=== PATIENT | male | born 1970 | race Two or more races ===

== ENCOUNTER 2024-12-28 08:51 | Inpatient (IN) | payer MEDICAID, SELFPAY ==
[2024-12-28] VITALS (15 sets, daily range): BP systolic 87–125; BP diastolic 54–93; PULSE 55–100; RESP 15–29; TEMP 36.4–37.8; O2SAT 91–100; BMI 27.1; BMI 25.3
--- NOTE | 2024-12-28 09:12 | EDNOTE_ITS ---
ED Fever RME/HPI General Chief Complaint: Fever Stated Complaint: LOW BLOOD PRESSURE Time Seen by Provider: 12/28/24 09:00 Arrival date/time: 12/28/24 08:51 RME / HPI RME / HPI Narrative: 54 year old male with history of TBI, anoxic encephalopathy, chronic vegetative state, chronic respiratory failure, s/p tracheostomy with ventilator dependance, s/p PEG tube presents to the ED brought in from the subacute unit within this facility for evaluation of hypotension and fevers today. Per RN, nursing staff at subacute reported fevers began several days ago and had a chest xray performed yesterday that showed early bilateral perihilar pneumonia. No further history obtainable from patient due to medical condition. Related Data Home Medications ?Medication ?Instructions ?Recorded ?Confirmed bisacodyl 10 mg rectal suppository 10 mg TN Q72H 09/0909/09/19 (Dulcolax (bisacodyl)) magnesium hydroxide 400 mg/5 mL 30 ml feeding tube Q72 H 09/09/19 09/09/19 oral suspension (Milk of Magnesia) multivitamin 1 tab feeding tube QDAY 08/1509/09/19 polyethylene glycol 3350 17 gram 17 g feeding tube Q72 H 09/09/19 09/09/19 oral powder packet (Miralax) propranolol 20 mg tablet 20 mg feeding tube Q8H 09/0909/09/19 sennosides 8.6 mg tablet (senna) 8.6 mg feeding tube B ID 09/09/19 09/09/19 dextran 70-hypromellose (PF) 0.1 2 drp ophthalmic (eye ) QID eye 09/10/19 09/10/19 %-0.3 % eye drops in a dropperette dryness (Natural Tears (PF)) Previous Rx's ?Medication ?Instructions ?Recorded balsam jory-castor oil topical 1 applicatio topical BI D #30 grams 09/14/19 ointment (Venelex topical ointment) ceftriaxone 1 gram intravenous 1 gm IV Q24H #5 ea 12/02 solution esomeprazole sodium 40 mg 40 mg IVP QDAY #30 ea intravenous solution ipratropium 0.5 mg-albuterol 3 mg 3 ml INH Q2HR PRN Sh ortness Of 09/14/19 (2.5 mg base)/3 mL nebulization Breath Or Wheeze #3 mL soln melatonin 3 mg tablet 3 mg feeding tube HS #0 tabs 09/14/19 sodium phosphates 19 gram-7 118 ml TN Q72H PRN Constip ation #0 09/14/19 gram/118 mL enema (Fleet Enema) mL Allergies Allergy/AdvReac Type Severity Reaction Status Date / Time No Known Allergies Allergy Verified 09/08/19 16:09 Review of Systems Review of Systems ROS Unobtainable: unobtainable due to medical condition Past Medical History Past Medical History NEUROLOGIC: Positive Neurological Disorders, Head Trauma and Traumatic Brain Injury CARDIAC: Positive Cardiac Arrhythmia (ON PROPRANOLOL) and Edema RESPIRATORY: Positive Asthma MUSCULOSKELETAL: Positive Musculoskeletal Disorders and Fractures ENT: Positive Head Trauma OTHER HISTORY: Positive Hospitalization Family History FAMILY HISTORY: Negative Family Cardiac Disorders Surgical History SURGICAL: Positive Tracheostomy and Gastrostomy Social History SMOKING STATUS: Unknown if ever smoked SECOND HAND EXPOSURE: No Physical Exam Narrative Physical exam: GENERAL: In general the patient is nonverbal, breathing comfortably after trach was suctioned three times.?Wering an adult brief. HEAD/EYES/EARS/NOSE/THROAT: normo-cephalic, mucus membranes are dry.? No cervical tenderness palpation midline.? Supple neck. Tracheostomy noted. CARDIOVASCULAR: regular rate and regular rhythm, no murmurs, heart sounds are not distant, strong pulses in all four extremities that are equal and symmetric bilateral upper and lower extremities, normal capillary refill. CHEST/PULMONARY: normal chest rise and fall, decreased breath sounds, clear to auscultation bilaterally, no wheezing. ABDOMEN: soft, not tender, no masses appreciated, G-tube appears to be leaking foot material, the g-tube site without any redness, erythema or discharge. BACK: no wounds on back, no areas of redness or skin breakdown NEUROLOGICAL: nonverbal, hx of TBI, chronic vegetative state, chronic contracture of upper and lower extremities, the left leg appears to always be crossing to the right side. EXTREMITY: no appearance of tenderness to palpation over the long bones or large joints of the bilateral upper and lower extremities, no signs of trauma SKIN: warm, dry, well-perfused, no jaundice, no rash, no telangiectasias or petechia. PSYCH: calm, cooperative, no evidence of psychosis or agitation Course Quality Measures Current suspected stage: sepsis Possible source: pulmonary Blood cultures ordered: completed in ED Antibiotic ordered: Yes Pertinent labs: 12/28/24 09:47 Lactic Acid 2.1 H mMol/L (0.4-2.0) Procalcitonin 0.17 ng/ml (0.0-0.49) sepsis Orders Category Date Time Status Bedside COVID-19 Antigen Test NOW Care 12/28/24 09:41 Completed COVID-19 Screening Questionnaire NOW Care 12/28/24 11:21 Ordered Energy Derivatives Trader STAT Care 12/28/24 09:24 Active Continuous Pulse Oximetry STAT Care 12/28/24 09:24 Completed Decision to Admit X1 Care 12/28/24 11:21 Ordered In and Out Catheter X1PRN Care 12/28/24 09:24 Completed Insert IV NOW Care 12/28/24 09:24 Completed NPO STAT Care 12/28/24 09:24 Active Strict Intake and Output Routine Care 12/28/24 09:24 Ordered B-Type Natriuretic Peptide Stat Lab 12/28/24 09:47 Completed Blood Culture (Lab) Stat Lab 12/28/24 09:05 Received CBC Stat Lab 12/28/24 09:47 Completed Comprehensive Metabolic Panel Stat Lab 12/28/24 09:47 Completed LDH (Lactate Dehydrogenase) Stat Lab 12/28/24 09:47 Completed Lactate (Lactic Acid) Stat Lab 12/28/24 09:47 Results Lipase Stat Lab 12/28/24 09:47 Completed Magnesium Stat Lab 12/28/24 09:47 Completed Partial Thromboplastin Time Stat Lab 12/28/24 09:47 Completed Phosphorous Stat Lab 12/28/24 09:47 Completed Procalcitonin Stat Lab 12/28/24 09:47 Completed Prothrombin Time with INR Stat Lab 12/28/24 09:47 Completed Troponin I Stat Lab 12/28/24 09:47 Completed Urinalysis Stat Lab 12/28/24 10:05 Completed Urine Culture Stat Lab 12/28/24 10:05 Received Piper/Tazo 3.375 gm Premix [Zosyn] Med 12/28/24 09:23 Discontinued 3.375 gm in 50 ml IV X1 Sodium Chloride 0.9% 1000 ml [Ns] 1,000 ml Med 12/28/24 10:02 Discontinued IV 999 mls/hr Sodium Chloride 0.9% 1000 ml [Ns] 2,427 ml Med 12/28/24 10:15 Discontinued IV 2,427 mls/hr Oxygen Delivery NOW RT 12/28/24 09:24 Active Reevaluation(s) Reevaluation #1: After IVF, blood pressure 114/65. Time: 10:55 Vital Signs Vital signs: Vital Signs Temperature 99.2 F 12/28/24 09:08 Pulse Rate 92 12/28/24 09:08 Respiratory Rate 26 H 12/28/24 09:08 Blood Pressure 101/63 12/28/24 09:08 Pulse Oximetry (%) 98 12/28/24 09:08 Oxygen Delivery Method Trach Collar 12/28/24 09:08 Oxygen Flow Rate 10 12/28/24 09:08 Fever MDM Narrative MDM Narrative:: Ines Roy am scribing for and in the presence of Dr. Park. Patient data External records reviewed:: [facility] previous records (I reviewed Dr. Cooper's progress note from yesterday 12/27/2024 ) Clinical information provided by:: other (specify) (RN) Social determinants that could affect healthcare access:: housing (subacute patient) Patient has the following chronic illnesses:: TBI, anoxic encephalopathy, chronic vegetative state, chronic respiratory failure, s/p tracheostomy with ventilator dependance, s/p PEG tube How is presenting disease/condition affected by chronic disease/condition?: exacerbated by Evaluation data The following diagnostics were reviewed and interpreted by me:: lab results and radiology exam(s) (I reviewed cxr performed yesterday 12/27/2024 showing early bilateral perihilar pneumonia ) Lab and/or radiology exams considered but not ordered:: None Interpretation Summary: Patient temperature is better, 98F. Respiratory rare is 19. BC 18.7, H/H 13.2/37.5, lactic acid 2.1, UA WBC 46 +leukocyte esterase Medications / Prescriptions Medications or Prescriptions considered but not ordered:: None Medication administrations:: Medication Administration History Discontinued Medications Piperacillin/Tazobactam/Dextrose (Zosyn) 3.375 gm in 50 mls @ 100 mls/hr IV X1 ONE Stop: 12/28/24 09:52 Last Infusion: 12/28/24 10:30 Dose: Infused Documented By: [facility] Admin: 12/28/24 09:56 Dose: 100 mls/hr Documented By: BD Sodium Chloride (Ns) 1,000 mls @ 999 mls/hr IV .Q1H1M ONE Stop: 12/28/24 11:02 Last Admin: 12/28/24 10:53 Dose: Not Given Documented By: BD Non-Admin Reason: Duplicate Medication on eMAR Sodium Chloride (Ns) 2,427 mls @ 2,427 mls/hr 30 ml/kg infuse over 60 min (2427 ml) IV .Q1H ONE; Protocol Stop: 12/28/24 11:14 Last Admin: 12/28/24 09:50 Dose: 2,427 mls/hr Documented By: BD See above Consultations Consultation(s) initiated? (list below): Yes Consultation #1 (Physician, Specialty, Details): I spoke with resident Dr. Galo working with Dr. Omer. Discussed patients PMHx, HPI, ED course, exam findings, labs, and radiology results. The hospitalist agree to accept the patient for admission. Diagnosis Fever Differential Diagnosis: cellulitis, fever of unknown origin, gastroenteritis, pyelonephritis, viral infection, sepsis, influenza and other (UTI, aspiration pneumonia, bacteremia) Most likely diagnosis given after review of the tests above:: Right middle lobe pneumonia Sepsis UTI Admission Indicated Admission indicated?: indicated Admission Request Was there a request for admission?: Yes Admission Attestation Admission request attestation: Discussed case with [] from Hospitalist service regarding admission. Discussed patients ED course, exam findings, labs, and radiology results. The Hospitalist [agrees,declines] to accept the patient for admission. Disposition Plan Disposition Plan: Admit Critical Care Time Critical Care Time Critical Care Time: Yes Total Critical Care Time (min.): 35 Attestation: The high probability of sudden, clinically significant deterioration in the patient's condition required the highest level of my preparedness to intervene urgently. The services I provided to this patient were to treat and/or prevent clinically significant deterioration. Services included the following: chart data review, reviewing nursing notes and/or old charts, documentation time, media consultant outside sales collaboration regarding findings and treatment options, medication orders and management, direct patient care, vital sign assessments and ordering, interpreting and reviewing diagnostic studies and lab tests. Aggregate critical care time includes only time during which I was engaged in work directly related to the patient's care, as described above, whether at bedside or elsewhere in the Emergency Department. It did not include time spent performing other reported procedures or the services of residents, students, nurses or physician assistants. Discharge Plan Plan Patient Disposition: Admit Acute Care w/in Hospital Prescriptions/Referrals Prescriptions/Med Rec: No Action multivitamin Tablet 1 tab feeding tube QDAY sennosides [senna] 8.6 mg Tablet 8.6 mg feeding tube BID polyethylene glycol 3350 [Miralax] 17 gram Powder In Packet 17 g feeding tube Q72H magnesium hydroxide [Milk of Magnesia] 400 mg/5 mL Suspension 30 ml feeding tube Q72H bisacodyl [Dulcolax (bisacodyl)] 10 mg Suppository 10 mg TN Q72H propranolol 20 mg Tablet 20 mg feeding tube Q8H Natural Tears (PF) 0.1-0.3 % Dropperette 2 drp OPHTHALMIC (EYE) QID ipratropium-albuterol 0.5 mg-3 mg(2.5 mg base)/3 mL Solution For Nebulization 3 ml INH Q2HR PRN (Reason: Shortness Of Breath Or Wheeze) Qty: 3 0RF balsam jory-castor oil [Venelex] Ointment 1 applicatio topical BID Qty: 30 0RF ceftriaxone 1 gram recon soln 1 gm IV Q24H Qty: 5 0RF Rx Instructions: 5 more doses at the subacute. esomeprazole sodium 40 mg Recon Soln 40 mg IVP QDAY Qty: 30 0RF melatonin 3 mg Tablet 3 mg feeding tube HS Qty: 0 0RF Fleet Enema 19-7 gram/118 mL Enema 118 ml TN Q72H PRN (Reason: Constipation) Qty: 0 0RF Referrals: Lashell Keita MD [Primary Care Provider] - In 1 week Problem List Clinical Impression: Right middle lobe pneumonia, Sepsis, UTI (urinary tract infection) Patient/Caregiver Discharge Instructions Print Language: Trinidadian Stand Alone Forms: Caitlin Award Info., Patient Portal Info Letter
--- NOTE | 2024-12-28 09:15 | PC.NURSE ---
pt came from subacute for fever 99.1 and hypotension, chest xray shows pt has pnemonia, labs shows wbc 19.5. pt wa suction twice in room. pt has contracture to bilateral Upper extremities and lower extremities. pt has trach on 10L of cool mist 02. pt has g tube current no redness noted.
--- NOTE | 2024-12-28 09:23 | PC.NURSE ---
sepsis alert called at 0910
[2024-12-28 09:55] LABS: Lactate (Lactic Acid) 2.1 mMol/L (0.4-2.0)
[2024-12-28] MEDS: PIPER/TAZO 3.375 GM PREMIX 3.375 GM/50 ML BAG IV (09:56)
[2024-12-28 09:57] LABS: Basophils % (Auto) 0 % (0-2.5); Eosinophils # (Auto) 0.1 Thou/mm3 (0.0-0.5); Eosinophils % (Auto) 1 % (0-10); Hematocrit 37.5 % (41.0-53.0); Hemoglobin 13.2 g/dL (13.5-16.0); Immature Granulocytes % (Auto) 0 % (0-0); Immature Granulocytes Auto 0.07 Thou/mm3 (0.00-0.00); Lymphocytes # (Auto) 1.7 Thou/mm3 (1.0-4.8); Lymphocytes % (Auto) 9 % (10-50); Mean Corpuscular HGB Conc 35.2 g/dl (31.0-37.0); Mean Corpuscular Hemoglobin 32.3 pg (25.0-35.0); Mean Corpuscular Volume 92 fL (80-100); Monocytes # (Auto) 2.1 Thou/mm3 (0.0-0.8); Monocytes % (Auto) 11 % (0-12); Neutrophils # (Auto) 14.7 Thou/mm3 (1.8-7.7); Neutrophils % (Auto) 79 % (37-80); Nucleated Red Blood Cell % 0 /100 WBC (0); Platelet Count 223 Thou/mm3 (140-440); RDW Standard Deviation 42.7 fL (35.1-43.9); Red Blood Count 4.09 Miln/mm3 (4.50-5.90); White Blood Count 18.7 Thou/mm3 (3.8-10.6)
[2024-12-28 10:10] LABS: INR 1.1 (0.9-1.3); Partial Thromboplastin Time 30.1 Seconds (22.0-36.0); Prothrombin Time 11.7 Seconds (9.0-12.2)
[2024-12-28 10:14] LABS: B-Type Natriuretic Peptide 32 pg/mL (0-100)
[2024-12-28 10:25] LABS: Alanine Aminotransferase 20 U/L (10-49); Albumin, Serum 3.6 gm/dL (3.5-5.0); Albumin/Globulin Ratio 1.2 (1.2-2.2); Alkaline Phosphatase 97 U/L (46-116); Anion Gap 8 (7-16); Aspartate Amino Transferase 15 U/L (0-34); BUN/Creatinine Ratio 24 Ratio (12-20); Bilirubin,Total 1.1 mg/dL (0.3-1.2); Blood Urea Nitrogen 17 mg/dL (9-23); Calcium 9.4 mg/dL (8.3-10.6); Calcium (Corrected) 9.7 mg/dL (8.5-10.1); Chloride 100 mMol/L (98-107); Creatinine (Component) 0.7 mg/dL (0.6-1.3); Estimated Creatinine Clearance 116.7 mL/min (>60); Globulin 3.1 gm/dL (2.3-3.5); Glucose 111 mg/dL (74-106); LDH (Lactate Dehydrogenase) 140 U/L (120-246); Lipase 46 U/L (12-53); Magnesium 1.7 mg/dL (1.6-2.6); Osmolality,Calculated 274 (275-295); Potassium 4.2 mMol/L (3.4-5.1); Procalcitonin 0.17 ng/ml (0.0-0.49); Sodium 136 mMol/L (136-145); Total Protein 6.7 gm/dL (5.7-8.2); Troponin I < 0.002 ng/mL (0.0-0.045); eGFR > 60 See Note
[2024-12-28 10:36] LABS: Collection Type, Urine Catheter; Squamous Epithelial Cell,Urine 0 /hpf (0-5)
[2024-12-28 11:12] LABS: Bilirubin,Urine Negative (Negative); Blood,Urine Negative (Negative); Color,Urine Yellow (Lt Yel-Yel); Glucose, Urine Negative (Negative); Ketones,Urine Negative (Negative); Leukocyte Esterase,Urine Positive (Negative); Nitrite,Urine Negative (Negative); Protein,Urine Trace (Neg - Trace); RBC,Urine 2 /hpf (0-3); Specific Gravity,Urine 1.021 (1.001-1.035); Transitional Epi Cells,Urine < 1 /hpf (0-5); Urobilinogen,Urine Negative mg/dL (0.0-1.0); WBC,Urine 46 /hpf (0-5)
[2024-12-28 11:19] LABS: Clarity,Urine Hazy (Clear/Hazy)
--- NOTE | 2024-12-28 12:36 | PC.NURSE ---
RT CALLED REGARDING NEB TREATMENT
[2024-12-28 12:53] LABS: Reflex Lactate? Y
[2024-12-28] MEDS: ALBUTEROL/IPRATROPIUM (Duoneb) RT SOL 3 ML NEBU INH ×2 (13:12→18:04)
--- NOTE | 2024-12-28 13:12 | PC.NURSE ---
NOTIFIED OF PT CURRENT B/P OF MAP OF 66 ADVISED TO CALL IF MAP GETS BELOW 65 SO HE CAN SPEAK WITH ICU
[2024-12-28 13:16] LABS: Lactic Acid, 3 HR 0.9 mMol/L (0.4-2.0)
--- NOTE | 2024-12-28 14:51 | PC.NURSE ---
daughter obed here at bedside wanting and update advised that he is being admitted at the moment and we are waiting for a bed upstairs
--- NOTE | 2024-12-28 15:31 | ESHP_ITS ---
<Statement entered by Mat Galo MD - 12/28/24 17:47> Patient was seen and examined by me personally. I agree with most of the assessment and plan as discussed with the quality internship physician, and my attending, Dr. Omer. 54-year-old male presents from subacute facility (trach, PEG s/p TBI) with recurrent fever/hypotension. CXR taken on 12/27 concerning for pneumonia. UA consistent with UTI. In the ED, sepsis alert was initiated and patient received 30 cc per keg IV fluids; cultures (blood/sputum/urine) were ordered and patient received Zosyn x 1. At baseline, patient is awake and occasionally will open his eyes to commands. Vital signs significant for MAP fluctuating around 65, SBP in 90s, Tmax 100.6 at midnight. Labs significant for leukocytosis and LA 2.1 which has since resolved. Pro-Shady was negative. No evidence of endorgan damage noted on labs. Patient will be started on Rocephin and azithromycin until cultures finalize. Will also add midodrine to maintain MAP >65. Will resume home meds including bowel regimen, and start patient on trickle feeds overnight. Will discuss with nursing and car sales associate team to hold tube feeds if there is any concern of aspiration. At bedside, patient's daughter Arlene was present, and we discussed the possibility of signing a new POLST form. Arlene was concerned that her father is suffering, as he has been in this condition for ~5 years. The family lives in [place] and she feels that they do not get to see him much. She will discuss with her siblings and likely to remain in [place] overnight. Will follow-up with her on 12/29 a.m. 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 Also noted to be hypotensive with BP of 93/55. In ED, vitals significant for BP of 91/54 s/p IVF per sepsis protocol, HR 65, afebrile, on 40% FiO2 and 10 L blow-by. Labs significant for WBC 18.7, lactate 2.1 down trended to 0.9, phosphorus 2.0, negative troponin, negative BNP, negative Pro-Shady. UA showed 46 WBC and LE positive, no bacteria. CXR noted above. Abdominal x-ray nonspecific bowel gas pattern with diffuse fecal material. Given Zosyn x 1, 2.4 L NS (per sepsis protocol), DuoNebs x 1. Admitted for management of pneumonia possible urinary tract infection. PMHx: chronic vegetative state, TBI, anoxic brain injury, hypertension Medications: losartan 25 mg daily, propranolol 20 mg TID, bowel regimen, PRN atrovent SHx: N/A PSHx: N/A Review of Systems Review of Systems ROS Unobtainable: unobtainable due to medical condition Exam Vital Signs Temp Pulse Resp BP Pulse Ox O2 Del Method O2 Flow Rate 98.5 F 65 16 91/54 L 99 Trach Collar 10 12/28/24 14:26 12/28/24 14:40 12/28/24 14:40 12/28/24 14:40 12/28/24 14:40 12/28/24 14:40 12/28/24 13:13 FiO2 40 12/28/24 13:13 Narrative Exam General: intermittently awake, opens eyes to voice but does not follow commands HEENT: trach in place with copious white mucous secretions, NC/AT, white patch on tongue Cardiovascular: regular rate and rhythm, S1/S2 present, no murmurs appreciated Pulmonary: coarse/bronchial breath sounds Abdominal: PEG tube in place, insertion site C/D/I, soft, non-distended, no rebound/guarding Musculoskeletal: flexed contractures in bilateral upper and lower extremities, muscular atrophy in limbs Skin: warm and dry, intact, no rashes Neuro: intermittently awake, opens eyes to voice but does not follow commands Results: Labs 12/28/24 09:47 12/28/24 09:47 Labs: Short CBC 12/28/24 Range/Units 09:47 WBC 18.7 H (3.8-10.6) Thou/mm3 Hgb 13.2 L (13.5-16.0) g/dL Hct 37.5 L (41.0-53.0) % Plt Count 223 (140-440) Thou/mm3 BMP 12/28/24 09:47 Sodium 136 Potassium 4.2 Chloride 100 Carbon Dioxide 28.0 BUN 17 Creatinine 0.7 Glucose 111 H Calcium 9.4 Cardiac Enzymes 12/28/24 Range/Units 09:47 Troponin I < 0.002 (0.0-0.045) ng/mL Liver Function 12/28/24 Range/Units 09:47 Total Bilirubin 1.1 (0.3-1.2) mg/dL AST 15 (0-34) U/L ALT 20 (10-49) U/L Alkaline Phosphatase 97 D (46-116) U/L Albumin 3.6 (3.5-5.0) gm/dL Urine 12/28/24 Range/Units 10:05 Urine Color Yellow (Lt Yel-Yel) Urine Clarity Hazy (Clear/Hazy) Urine pH 6.0 (5.0-7.0) Ur Specific [place] 1.021 (1.001-1.035) Urine Protein Trace (Neg - Trace) Urine Glucose (UA) Negative (Negative) Quality Measures Quality Measures sepsis Current suspected stage: ruled out (no evidence of end organ damage at this time) Possible source: pulmonary Blood cultures ordered: completed in ED Antibiotic ordered: Yes Medications Home Medications and Allergies Home Medications ?Medication ?Instructions ?Recorded ?Confirmed ?Type bisacodyl 10 mg rectal suppository 10 mg [place] Q72H 09/0909/09/19 History (Dulcolax (bisacodyl)) magnesium hydroxide 400 mg/5 mL 30 ml feeding tube Q72 H 09/09/19 09/09/19 History oral suspension (Milk of Magnesia) multivitamin 1 tab feeding tube QDAY 08/1509/09/19 History polyethylene glycol 3350 17 gram 17 g feeding tube Q72 H 09/09/19 09/09/19 History oral powder packet (Miralax) propranolol 20 mg tablet 20 mg feeding tube Q8H 09/0909/09/19 History sennosides 8.6 mg tablet (senna) 8.6 mg feeding tube B ID 09/09/19 09/09/19 History dextran 70-hypromellose (PF) 0.1 2 drp ophthalmic (eye ) QID eye 09/10/19 09/10/19 History %-0.3 % eye drops in a dropperette dryness (Natural Tears (PF)) Allergies Allergy/AdvReac Type Severity Reaction Status Date / Time No Known Allergies Allergy Verified 09/08/19 16:09 Visit Medications Acetaminophen (Acetaminophen 325 Mg Tablet) 650 mg PO Q6H PRN PRN Reason: PAIN OR FEVER > 100.4 Stop: 01/27/25 14:55 Albuterol/Ipratropium (Albuterol/Ipratropium (Duoneb) Rt Johanne 3 Ml Nebu) 3 ml INH Q6HRRT NADINE Stop: 01/27/25 12:59 Last Admin: 12/28/24 13:12 Dose: 3 ml Heparin Sodium (Porcine) (Heparin Sod Inj 5000 Unit/Ml Vial) 5,000 unit SC Q12HR NADINE Stop: 01/11/25 20:59 Discontinued Medications Piperacillin/Tazobactam/Dextrose (Zosyn) 3.375 gm in 50 mls @ 100 mls/hr IV X1 ONE Stop: 12/28/24 09:52 Last Infusion: 12/28/24 10:30 Dose: Infused Sodium Chloride (Ns) 1,000 mls @ 999 mls/hr IV .Q1H1M ONE Stop: 12/28/24 11:02 Last Admin: 12/28/24 10:53 Dose: Not Given Sodium Chloride (Ns) 2,427 mls @ 2,427 mls/hr 30 ml/kg infuse over 60 min (2427 ml) IV .Q1H ONE; Protocol Stop: 12/28/24 11:14 Last Infusion: 12/28/24 12:28 Dose: Infused Assessment & Plan Plan Demetrio Monreal is a 54-year-old male who comes from subacute in 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 #Pneumonia, b/l perihilar and right basilar #Lactic acidosis, resolved #Hypotension Coming from subacute with low-grade fevers, leukocytosis, and hypotension. Resuscitated with IVF per sepsis protocol (30 mL/kg) and BP of 54 with MAP of 67. Patient does not have significant risk for MDR pathogens as he is not on ventilator in subacute and does not have a history of Pseudomonas or MRSA infections. Thus, will treat for CAP pathogens with low threshold for expanding coverage based on clinical presentation. ? Ceftriaxone 1 g IV daily (12/28-) ? Azithromycin 500 mg x 1 -> 250 mg via G-tube daily (12/28-) ? Midodrine 10 mg via G-tube TID PRN ? Sputum culture 12/27: Gram stain shows 2+ GPC and 2+ GVR ? Blood culture 12/28: Pending #? Urinary tract infection ? Ceftriaxone as above ? Urine culture 12/27: Pending #PEG tube ? Tube feedings, Jevity 1.2 shady 1 L RTH started on trickle feeds until RD recs ? Follow-up RD recommendations #Hypophosphatemia ? Neutra-Phos packets x2 ? Follow-up AM phos levels and replete as needed Antibiotics: Zosyn x 1 (12/28) Ceftriaxone and azithromycin (12/28-) Hospital management: Disposition: on IV antibiotics and pending culture results Fluids: 100 cc/hr of maintenance LR Diet: Jevity 1.2 Shady 1 L RTH Lines: PIV DVT prophylaxis: Heparin SC BID GI prophylaxis: Pantoprazole 40 mg IV daily Gonzalez: none, has diaper CODE STATUS: full code ----- Plan discussed with attending physician Dr. Omer and senior resident physician Dr. Clover Moulton MD PGY-1 Internal Medicine
[2024-12-28] MEDS: cefTRIAXone 1,000 MG in SODIUM CHLORIDE 0.9% (Popper) 50 ML 100 MG IV (15:54)
[2024-12-28] MEDS: AZITHROMYCIN SUSP 200 MG/5 ML 500 MG GT (16:12)
[2024-12-28] MEDS: RINGERS LACTATED 1000 ML 1,000 ML 100 ML IV (16:15)
[2024-12-28] MEDS: Magnesium Sulfate 2 GM Ivpb 2 GM/50 ML BAG IV (16:28)
[2024-12-28] MEDS: NAPH,KPH MBDB 1 PACKET (1.5 GM) 2 PACKET GT (17:05)
--- NOTE | 2024-12-28 20:34 | PC.NURSE ---
report received from Enedelia ROSE
[2024-12-28] MEDS: MIDODRINE 5 MG TABLET 10 MG GT (21:48)
[2024-12-28] MEDS: HEPARIN SOD INJ 5000 UNIT/ML VIAL SC (21:52)
[2024-12-29] VITALS (14 sets, daily range): BP systolic 90–128; BP diastolic 52–68; PULSE 64–89; RESP 14–29; TEMP 36.1–37.5; O2SAT 95–100; BMI 25.0
[2024-12-29] MEDS: ALBUTEROL/IPRATROPIUM (Duoneb) RT SOL 3 ML NEBU INH ×4 (00:16→20:19)
[2024-12-29] MEDS: guaiFENesin SYRUP 200 MG/10 ML UDC 100 MG GT ×2 (03:11→22:13)
[2024-12-29 05:25] LABS: Basophils % (Auto) 0 % (0-2.5); Eosinophils # (Auto) 0.1 Thou/mm3 (0.0-0.5); Eosinophils % (Auto) 1 % (0-10); Hematocrit 33.6 % (41.0-53.0); Hemoglobin 11.6 g/dL (13.5-16.0); Immature Granulocytes % (Auto) 0 % (0-0); Immature Granulocytes Auto 0.02 Thou/mm3 (0.00-0.00); Lymphocytes # (Auto) 1.3 Thou/mm3 (1.0-4.8); Lymphocytes % (Auto) 12 % (10-50); Mean Corpuscular HGB Conc 34.5 g/dl (31.0-37.0); Mean Corpuscular Hemoglobin 32.1 pg (25.0-35.0); Mean Corpuscular Volume 93 fL (80-100); Monocytes % (Auto) 8 % (0-12); Neutrophils # (Auto) 8.9 Thou/mm3 (1.8-7.7); Neutrophils % (Auto) 79 % (37-80); Nucleated Red Blood Cell % 0 /100 WBC (0); Platelet Count 174 Thou/mm3 (140-440); RDW Standard Deviation 43.6 fL (35.1-43.9); Red Blood Count 3.61 Miln/mm3 (4.50-5.90); White Blood Count 11.3 Thou/mm3 (3.8-10.6)
[2024-12-29] MEDS: ACETAMINOPHEN 325 MG TABLET 650 MG PO ×2 (05:29→22:14)
[2024-12-29] MEDS: MIDODRINE 5 MG TABLET 10 MG GT ×3 (05:42→22:14)
[2024-12-29 06:02] LABS: Anion Gap 7 (7-16); Calcium 8.4 mg/dL (8.3-10.6); Carbon Dioxide 27.4 mMol/L (20.0-31.0); Chloride 103 mMol/L (98-107); Potassium 3.5 mMol/L (3.4-5.1); Sodium 137 mMol/L (136-145)
[2024-12-29 06:04] LABS: BUN/Creatinine Ratio 20 Ratio (12-20); Blood Urea Nitrogen 10 mg/dL (9-23); Creatinine (Component) 0.5 mg/dL (0.6-1.3); Estimated Creatinine Clearance 163.4 mL/min (>60); Glucose 105 mg/dL (74-106); Magnesium 1.8 mg/dL (1.6-2.6); Osmolality,Calculated 272 (275-295); eGFR > 60 See Note
[2024-12-29] MEDS: PANTOPRAZOLE INJ 40 MG VIAL IVP (09:11)
[2024-12-29] MEDS: HEPARIN SOD INJ 5000 UNIT/ML VIAL SC ×2 (09:11→22:26)
[2024-12-29] MEDS: cefTRIAXone 1,000 MG in SODIUM CHLORIDE 0.9% (Popper) 50 ML 100 MG IV (09:12)
[2024-12-29] MEDS: SENNA TABLET 2 TAB GT (09:12)
--- NOTE | 2024-12-29 09:42 | PC.DIETICIAN ---
Nutrition Prescription: Jevity 1.2 at 20 ml/hr via PEG tube by pump. Advance 10 ml every 8 hrs to goal rate of 60 ml/hr x 22 hrs. If no IV fluids, water flushes of 25 ml/hr (or per MD).
[2024-12-29] MEDS: AZITHROMYCIN SUSP 200 MG/5 ML 250 MG GT (09:50)
--- NOTE | 2024-12-29 10:15 | ESPR_ITS ---
<Statement entered by Ishaan Webber MD - 12/29/24 20:52> Patient was seen and examined at the bedside. No acute overnight events were reported. Patient continued to have copious amount of secretions around the tracheostomy tube. Will continue with frequent suctioning. Noted to have mild temperature 100.0. Will continue with IV Rocephin and azithromycin. Sputum Gram stain growing GPC. Blood cultures are currently pending. Urine culture grew GPC. Will likely follow-up with culture results. Electrolytes were repleted. All labs and orders were reviewed. I saw and examined the patient, and I agree with current management stated by Dr Saige MD,PGY1. Plan of care was discussed with the attending physician and resident physician. Disclaimer: Despite multiple revisions, due to the dictation software being used, the document bellow may not be free of grammatical errors including phonetic/typographic errors. However, this does not deter from our commitment to providing health care in the patient's best interest in mind. Dr. 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 Also noted to be hypotensive with BP of 93/55. In ED, vitals significant for BP of 91/54 s/p IVF per sepsis protocol, HR 65, afebrile, on 40% FiO2 and 10 L blow-by. Labs significant for WBC 18.7, lactate 2.1 down trended to 0.9, phosphorus 2.0, negative troponin, negative BNP, negative Pro-Shady. UA showed 46 WBC and LE positive, no bacteria. Admitted for management of pneumonia possible urinary tract infection. 12/29: No acute overnight events. Seen and examined at bedside with copious amounts of secretions coming from trach and communicated with nursing staff and RT to coordinate frequent suctioning. Otherwise, noted to have temp 100.0 F. Currently on trickle tube feedings until RD recommendations. Exam Vital Signs Temp Pulse Resp BP Pulse Ox O2 Del Method O2 Flow Rate 99.5 F 75 18 90/53 L 97 Trach Collar 10 12/29/24 08:00 12/29/24 08:00 12/29/24 08:00 12/29/24 08:00 12/29/24 08:00 12/29/24 08:00 12/29/24 07:18 FiO2 40 12/29/24 07:18 Narrative Exam General: intermittently awake, opens eyes to voice but does not follow commands HEENT: trach in place with copious white mucous secretions, NC/AT, white patch on tongue Cardiovascular: regular rate and rhythm, S1/S2 present, no murmurs appreciated Pulmonary: coarse/bronchial breath sounds Abdominal: PEG tube in place, insertion site C/D/I, soft, non-distended, no rebound/guarding Musculoskeletal: flexed contractures in bilateral upper and lower extremities, muscular atrophy in limbs Skin: warm and dry, intact, no rashes Neuro: intermittently awake, opens eyes to voice but does not follow commands Objective Labs 12/29/24 04:10 12/29/24 04:10 Labs: Laboratory Results - last 24 hr 12/28/24 12/28/24 12/28/24 09:47 10:05 12:58 WBC RBC Hgb Hct MCV MCH MCHC RDW Std Deviation Plt Count Neut % (Auto) Lymph % (Auto) [place] % (Auto) Eos % (Auto) Baso % (Auto) Neut # (Auto) Lymph # (Auto) [place] # (Auto) Eos # (Auto) Baso # (Auto) Immature Gran # (Auto) Absolute Nucleated RBC Immature Gran % Nucleated RBC % Sodium 136 Potassium 4.2 Chloride 100 Carbon Dioxide 28.0 Anion Gap 8 BUN 17 Creatinine 0.7 Estim Creat Clear Calc 116.7 eGFR > 60 BUN/Creatinine Ratio 24 H Glucose 111 H Calculated Osmolality 274 L Lactic Acid 0.9 Calcium 9.4 Corrected Calcium 9.7 Phosphorus 2.0 L Magnesium 1.7 Total Bilirubin 1.1 AST 15 ALT 20 Alkaline Phosphatase 97 D Lactate Dehydrogenase 140 Troponin I < 0.002 B-Natriuretic Peptide 32 Total Protein 6.7 Albumin 3.6 Globulin 3.1 Albumin/Globulin Ratio 1.2 Lipase 46 Procalcitonin 0.17 Ur Collection Type Catheter Urine Color Yellow Urine Clarity Hazy Urine pH 6.0 Ur Specific [place] 1.021 Urine Protein Trace Urine Glucose (UA) Negative Urine Ketones Negative Urine Blood Negative Urine Nitrite Negative Urine Bilirubin Negative Urine Urobilinogen (Auto) Negative Ur Leukocyte Esterase Positive Urine RBC 2 Urine WBC 46 H Ur Squamous Epith Cells 0 Ur Transition Epith Cell < 1 Urine Bacteria None 12/29/24 04:10 WBC 11.3 H D RBC 3.61 L Hgb 11.6 L Hct 33.6 L MCV 93 MCH 32.1 MCHC 34.5 RDW Std Deviation 43.6 Plt Count 174 D Neut % (Auto) 79 Lymph % (Auto) 12 [place] % (Auto) 8 Eos % (Auto) 1 Baso % (Auto) 0 Neut # (Auto) 8.9 H Lymph # (Auto) 1.3 [place] # (Auto) 1.0 H Eos # (Auto) 0.1 Baso # (Auto) 0.0 Immature Gran # (Auto) 0.02 H Absolute Nucleated RBC 0.00 Immature Gran % 0 Nucleated RBC % 0 Sodium 137 Potassium 3.5 D Chloride 103 Carbon Dioxide 27.4 Anion Gap 7 BUN 10 Creatinine 0.5 L Estim Creat Clear Calc 163.4 eGFR > 60 BUN/Creatinine Ratio 20 Glucose 105 Calculated Osmolality 272 L Lactic Acid Calcium 8.4 Corrected Calcium Phosphorus Magnesium 1.8 Total Bilirubin AST ALT Alkaline Phosphatase Lactate Dehydrogenase Troponin I B-Natriuretic Peptide Total Protein Albumin Globulin Albumin/Globulin Ratio Lipase Procalcitonin Ur Collection Type Urine Color Urine Clarity Urine pH Ur Specific [place] Urine Protein Urine Glucose (UA) Urine Ketones Urine Blood Urine Nitrite Urine Bilirubin Urine Urobilinogen (Auto) Ur Leukocyte Esterase Urine RBC Urine WBC Ur Squamous Epith Cells Ur Transition Epith Cell Urine Bacteria Quality Measures Quality Measures sepsis Current suspected stage: ruled out Possible source: pulmonary Blood cultures ordered: completed in ED Antibiotic ordered: Yes Assessment & Plan Assessment Current Active Medications: Generic Name Dose Route Start Last Admin Trade Name Freq PRN Reason Stop Dose Admin Acetaminophen 650 mg 12/28/24 14:56 12/29/24 05:29 Acetaminophen 325 Mg Tablet PO 01/27/25 14:55 650 mg Q6H PRN Administration PAIN OR FEVER > 100.4 Albuterol/Ipratropium 3 ml 12/28/24 13:00 12/29/24 07:17 Albuterol/Ipratropium (Duoneb) Rt Johanne 3 Ml Nebu INH 01/27/25 12:59 3 ml Q6HRRT NADINE Administration Azithromycin 250 mg 12/29/24 09:00 12/29/24 09:50 Azithromycin Susp 200 Mg/5 Ml GT 01/05/25 08:59 250 mg QDAY NADINE Administration Bisacodyl 10 mg 12/28/24 15:11 Bisacodyl 10 Mg Supp [place] 01/27/25 15:10 QDAY PRN Constipation Protocol Guaifenesin 100 mg 12/29/24 02:58 12/29/24 03:11 Guaifenesin Syrup 200 Mg/10 Ml Udc GT 01/28/25 02:57 100 mg QID PRN Administration COUGH Protocol Heparin Sodium (Porcine) 5,000 unit 12/28/24 21:00 12/29/24 09:11 Heparin Sod Inj 5000 Unit/Ml Vial SC 01/11/25 20:59 5,000 unit Q12HR NADINE Administration Ceftriaxone Sodium 1,000 mg/ 50 mls @ 100 mls/hr 12/28/24 15:28 12/29/24 09:12 Sodium Chloride IV 01/04/25 15:27 100 mls/hr QDAY NADINE Administration Ipratropium [place] 2 puff 12/28/24 15:20 Ipratropium [place] Hfa 12.9 Gm Inh INH 01/27/25 18:59 Q4HRRT PRN wheezing Magnesium Hydroxide 30 ml 12/28/24 15:22 Milk Of Magnesia Susp 30 Ml Udc GT 01/27/25 15:21 QDAY PRN CONSTIPATION Protocol Midodrine 10 mg 12/28/24 22:00 12/29/24 05:42 Midodrine 5 Mg Tablet GT 01/27/25 21:59 10 mg TID NADINE Administration Ondansetron HCl 4 mg 12/28/24 15:11 Ondansetron Inj 2 Mg/Ml Inj 2 Ml IV 01/27/25 15:10 Q6H PRN NAUSEA OR VOMITING Protocol Pantoprazole Sodium 40 mg 12/29/24 09:00 12/29/24 09:11 Pantoprazole Inj 40 Mg Vial IVP 01/28/25 08:59 40 mg QDAY NADINE Administration Polyethylene Glycol 17 gm 12/28/24 15:22 Polyethylene Glycol 17 Gm Packet GT 01/28/25 08:59 QDAY PRN CONSTIPATION Sennosides 2 tab 12/29/24 09:00 12/29/24 09:12 Senna Tablet GT 01/28/25 08:59 2 tab QDAY NADINE Administration Protocol Plan Demetrio Monreal is a 54-year-old male who comes from subacute in 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 #Pneumonia, b/l perihilar and right basilar #Lactic acidosis, resolved #Hypotension WBC improving and T max of 100.0 F last 24 hours. No significant risk for MDR pathogens as he is not on ventilator in subacute and does not have a history of Pseudomonas or MRSA infections. Thus, will treat for CAP pathogens with low threshold for expanding coverage based on clinical presentation. ? Ceftriaxone 1 g IV daily (12/28-) ? Azithromycin 500 mg x 1 -> 250 mg via G-tube daily (12/28-) ? Midodrine 10 mg via G-tube TID ? Sputum culture 12/27: Gram stain shows 2+ GPC and 2+ GVR ? Blood culture 12/28: Pending #? Urinary tract infection ? Ceftriaxone as above ? Urine culture 12/27: GPC #PEG tube ? Tube feedings, Jevity 1.2 shady 1 L RTH started on trickle feeds until RD recs ? Follow-up RD recommendations #Hypophosphatemia ? Neutra-Phos packets x2 ? Follow-up AM phos levels and replete as needed #History of hypertension Has propranolol 20 mg via GT BID and losartan 25 mg GT daily ? Hold antihypertensives given low BP #Bowel regimen ? Sennosides 2 tabs daily ? Poyethylene glycol 17 g GT daily PRN ? Mag hydroxide 30 mL GT daily PRN ? Bisacodyl 10 mg [place] daily PRN Hospital management: Disposition: pending cultures and sensitivities Fluids: none, on tube feeds Diet: trickle feeds Lines: PIV Tubes: ET tube, PEG tube DVT prophylaxis: heparin SC BID GI prophylaxis: pantoprazole 40 mg IV daily CODE STATUS: full code ----- Plan discussed with attending physician Dr. Omer and senior resident physician Dr. Akbar Moulton MD PGY-1 Internal Medicine Attending Provider Attestation/Addendum I have discussed and was present for the essential components of the history, physical examination, diagnosis, and treatment plan with the resident. I agree with the patient's care as documented by the resident and amended herein by me. Adolph Omer DO. Patient seen and evaluated this AM. Vital signs stable, patient afebrile overnight, WBC 11.6, hemoglobin stable 11.3. BMP largely unremarkable, potassium 3.5 which is been repleted. ET tube demonstrating GNR, urinary culture demonstrating gram-positive cocci, awaiting speciation on both. Will continue ceftriaxone azithromycin for now and tailor once culture speciation is available. Will continue midodrine and begin tube feeds per dietitian recommendations on formula. The family is coming by today for goals of care discussion, mainly to adjust the patient's POLST form, we will document appropriately. Will also continue to reconcile and ensure the patient's home medications were restarted. Although this document has been carefully reviewed, there may still be some phonetic and other typographical errors. These errors are purely grammatical due to imperfections in the software program and should not be construed in any way to compromise the substance of the patient's medical care during this visit.
[2024-12-29 13:27] LABS: Phosphorous 2.3 mg/dL (2.4-5.1)
--- NOTE | 2024-12-29 15:48 | PC.SS ---
Patient Demetrio Monreal is [place] 54 year old male admitted for PNA. SS contacted patient's daughter, Liliam Chadwick who reports is patient's surrogate decision maker [phone]. Patient has been in the subacute for 5 years. Patient is not alert and oriented and is trach and peg. Liliam reports when patient is medically cleared patient will return back to Subacute. SS will stand by for further needs.
[2024-12-29] MEDS: Milk Of Magnesia Susp 30 ML UDC GT (22:13)
[2024-12-30] VITALS (13 sets, daily range): BP systolic 90–118; BP diastolic 56–75; PULSE 67–99; RESP 16–34; TEMP 36.1–37.1; O2SAT 90–100
[2024-12-30] MEDS: ALBUTEROL/IPRATROPIUM (Duoneb) RT SOL 3 ML NEBU INH ×4 (01:29→18:13)
[2024-12-30] MEDS: MIDODRINE 5 MG TABLET 10 MG GT (05:55)
[2024-12-30] MEDS: guaiFENesin SYRUP 200 MG/10 ML UDC 100 MG GT (05:56)
[2024-12-30] MEDS: POLYETHYLENE GLYCOL 17 GM PACKET GT (05:56)
[2024-12-30 06:01] LABS: Basophils % (Auto) 0 % (0-2.5); Eosinophils # (Auto) 0.2 Thou/mm3 (0.0-0.5); Eosinophils % (Auto) 2 % (0-10); Hematocrit 31.8 % (41.0-53.0); Immature Granulocytes % (Auto) 0 % (0-0); Immature Granulocytes Auto 0.04 Thou/mm3 (0.00-0.00); Lymphocytes # (Auto) 1.8 Thou/mm3 (1.0-4.8); Lymphocytes % (Auto) 19 % (10-50); Mean Corpuscular HGB Conc 34.6 g/dl (31.0-37.0); Mean Corpuscular Hemoglobin 32.1 pg (25.0-35.0); Mean Corpuscular Volume 93 fL (80-100); Monocytes # (Auto) 1.2 Thou/mm3 (0.0-0.8); Monocytes % (Auto) 12 % (0-12); Neutrophils # (Auto) 6.5 Thou/mm3 (1.8-7.7); Neutrophils % (Auto) 67 % (37-80); Nucleated Red Blood Cell % 0 /100 WBC (0); Platelet Count 194 Thou/mm3 (140-440); RDW Standard Deviation 41.6 fL (35.1-43.9); Red Blood Count 3.43 Miln/mm3 (4.50-5.90); White Blood Count 9.7 Thou/mm3 (3.8-10.6)
[2024-12-30 06:45] LABS: Anion Gap 10 (7-16); BUN/Creatinine Ratio 16 Ratio (12-20); Blood Urea Nitrogen 8 mg/dL (9-23); Calcium 8.4 mg/dL (8.3-10.6); Carbon Dioxide 26.7 mMol/L (20.0-31.0); Chloride 102 mMol/L (98-107); Creatinine (Component) 0.5 mg/dL (0.6-1.3); Estimated Creatinine Clearance 163.4 mL/min (>60); Glucose 96 mg/dL (74-106); Magnesium 1.9 mg/dL (1.6-2.6); Osmolality,Calculated 275 (275-295); Potassium 3.2 mMol/L (3.4-5.1); Sodium 139 mMol/L (136-145); eGFR > 60 See Note
[2024-12-30] MEDS: PANTOPRAZOLE INJ 40 MG VIAL IVP (09:31)
[2024-12-30] MEDS: cefTRIAXone/D5w 1gm IV premix 50 ML IV (09:31)
[2024-12-30] MEDS: HEPARIN SOD INJ 5000 UNIT/ML VIAL SC ×2 (09:31→23:48)
[2024-12-30] MEDS: SENNA TABLET 2 TAB GT (09:32)
[2024-12-30] MEDS: AZITHROMYCIN SUSP 200 MG/5 ML 250 MG GT (10:46)
[2024-12-30] MEDS: Magnesium Sulfate 1 gm Ivpb 1 GM/100 ML BAG IV (10:47)
--- NOTE | 2024-12-30 11:42 | ESPR_ITS ---
<Statement entered by Ishaan Webber MD - 12/30/24 13:43> Patient was seen and examined at the bedside. No acute overnight events were reported. Patient has copious amount of secretions coming out from the trach. Patient's blood pressure remained borderline hypotensive. Continuing midodrine for now. Blood pressure hemoglobin remained stable. Potassium was 3.2. Electrolytes were repleted. Urine culture growing Enterococcus faecalis sensitive to Levaquin. Switch to Levaquin for now. All labs and orders were reviewed. I saw and examined the patient, and I agree with current management stated by Dr Saige MD,PGY1. Plan of care was discussed with the attending physician and resident physician. Disclaimer: Despite multiple revisions, due to the dictation software being used, the document bellow may not be free of grammatical errors including phonetic/typographic errors. However, this does not deter from our commitment to providing health care in the patient's best interest in mind. Dr. 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 Also noted to be hypotensive with BP of 93/55. In ED, vitals significant for BP of 91/54 s/p IVF per sepsis protocol, HR 65, afebrile, on 40% FiO2 and 10 L blow-by. Labs significant for WBC 18.7, lactate 2.1 down trended to 0.9, phosphorus 2.0, negative troponin, negative BNP, negative Pro-Kj. UA showed 46 WBC and LE positive, no bacteria. Admitted for management of pneumonia possible urinary tract infection. 12/29: No acute overnight events. Seen and examined at bedside with copious amounts of secretions coming from trach and communicated with nursing staff and RT to coordinate frequent suctioning. Otherwise, noted to have temp 100.0 F. Currently on trickle tube feedings until RD recommendations. 12/30: No acute overnight events. Seen and examined at bedside and continues to have copious amount of secretions from trach. No fevers noted and WBC downtrending. Urine cultures came back positive for Enterococcus faecalis sensitive to levofloxacin, which was started. Will continue to await for sputum culture results. Exam Vital Signs Temp Pulse Resp BP Pulse Ox O2 Del Method O2 Flow Rate 97.0 F 67 18 118/73 99 Trach Collar 10 12/30/24 08:00 12/30/24 08:00 12/30/24 08:00 12/30/24 08:00 12/30/24 08:00 12/30/24 08:00 12/30/24 08:00 FiO2 40 12/30/24 07:30 Narrative Exam General: mostly asleep, laying comfortably in bed HEENT: trach in place with copious white mucous secretions, NC/AT, white patch on tongue Cardiovascular: regular rate and rhythm, S1/S2 present, no murmurs appreciated Pulmonary: coarse/bronchial breath sounds Abdominal: PEG tube in place, insertion site C/D/I, soft, non-distended, no rebound/guarding Musculoskeletal: flexed contractures in bilateral upper and lower extremities, muscular atrophy in limbs Skin: warm and dry, intact, no rashes Neuro: intermittently awake, opens eyes to voice but does not follow commands Objective Labs 12/30/24 04:26 12/30/24 04:26 Labs: Laboratory Results - last 24 hr 12/29/24 12/30/24 04:00 04:26 WBC 9.7 RBC 3.43 L Hgb 11.0 L Hct 31.8 L MCV 93 MCH 32.1 MCHC 34.6 RDW Std Deviation 41.6 Plt Count 194 Neut % (Auto) 67 Lymph % (Auto) 19 Cameron % (Auto) 12 Eos % (Auto) 2 Baso % (Auto) 0 Neut # (Auto) 6.5 Lymph # (Auto) 1.8 Cameron # (Auto) 1.2 H Eos # (Auto) 0.2 Baso # (Auto) 0.0 Immature Gran # (Auto) 0.04 H Absolute Nucleated RBC 0.00 Immature Gran % 0 Nucleated RBC % 0 Sodium 139 Potassium 3.2 L Chloride 102 Carbon Dioxide 26.7 Anion Gap 10 BUN 8 L Creatinine 0.5 L Estim Creat Clear Calc 163.4 eGFR > 60 BUN/Creatinine Ratio 16 Glucose 96 Calculated Osmolality 275 Calcium 8.4 Phosphorus 2.3 L 2.0 L Magnesium 1.9 Quality Measures Quality Measures sepsis Current suspected stage: sepsis Possible source: pulmonary Blood cultures ordered: completed in ED Antibiotic ordered: Yes Assessment & Plan Assessment Current Active Medications: Generic Name Dose Route Start Last Admin Trade Name Freq PRN Reason Stop Dose Admin Acetaminophen 650 mg 12/28/24 14:56 12/29/24 22:14 Acetaminophen 325 Mg Tablet PO 01/27/25 14:55 650 mg Q6H PRN Administration PAIN OR FEVER > 100.4 Albuterol/Ipratropium 3 ml 12/28/24 13:00 12/30/24 07:30 Albuterol/Ipratropium (Duoneb) Rt Johanne 3 Ml Nebu INH 01/27/25 12:59 3 ml Q6HRRT NADINE Administration Azithromycin 250 mg 12/29/24 09:00 12/30/24 10:46 Azithromycin Susp 200 Mg/5 Ml GT 01/05/25 08:59 250 mg QDAY NADINE Administration Bisacodyl 10 mg 12/28/24 15:11 Bisacodyl 10 Mg Supp [place] 01/27/25 15:10 QDAY PRN Constipation Protocol Guaifenesin 100 mg 12/29/24 02:58 12/30/24 05:56 Guaifenesin Syrup 200 Mg/10 Ml Udc GT 01/28/25 02:57 100 mg QID PRN Administration COUGH Protocol Heparin Sodium (Porcine) 5,000 unit 12/28/24 21:00 12/30/24 09:31 Heparin Sod Inj 5000 Unit/Ml Vial SC 01/11/25 20:59 5,000 unit Q12HR NADINE Administration Ceftriaxone Sodium/Dextrose 50 mls @ 100 mls/hr 12/30/24 09:00 12/30/24 09:31 Rocephin/D5w 1gm Iv Premix IV 01/04/25 15:27 100 mls/hr QDAY NADINE Administration Potassium Phosphate 15 mmol in 250 mls @ 62.5 mls/hr 12/30/24 08:41 Pot Phos 15 Mmol In Ns 250 Ml IV 12/30/24 12:06 X1 ONE Ipratropium [place] 2 puff 12/28/24 15:20 Ipratropium [place] Hfa 12.9 Gm Inh INH 01/27/25 18:59 Q4HRRT PRN wheezing Magnesium Hydroxide 30 ml 12/28/24 15:22 12/29/24 22:13 Milk Of Magnesia Susp 30 Ml Udc GT 01/27/25 15:21 30 ml QDAY PRN Administration CONSTIPATION Protocol Midodrine 10 mg 12/28/24 22:00 12/30/24 05:55 Midodrine 5 Mg Tablet GT 01/27/25 21:59 10 mg TID NADINE Administration Ondansetron HCl 4 mg 12/28/24 15:11 Ondansetron Inj 2 Mg/Ml Inj 2 Ml IV 01/27/25 15:10 Q6H PRN NAUSEA OR VOMITING Protocol Pantoprazole Sodium 40 mg 12/29/24 09:00 12/30/24 09:31 Pantoprazole Inj 40 Mg Vial IVP 01/28/25 08:59 40 mg QDAY NADINE Administration Polyethylene Glycol 17 gm 12/28/24 15:22 12/30/24 05:56 Polyethylene Glycol 17 Gm Packet GT 01/28/25 08:59 17 gm QDAY PRN Administration CONSTIPATION Sennosides 2 tab 12/29/24 09:00 12/30/24 09:32 Senna Tablet GT 01/28/25 08:59 2 tab QDAY NADINE Administration Protocol Plan Demetrio Monreal is a 54-year-old male who comes from subacute in 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 #Pneumonia, b/l perihilar and right basilar #Lactic acidosis, resolved #Hypotension WBC improving and no fevers in last 24 hours. No significant risk for MDR pathogens as he is not on ventilator in subacute and does not have a history of Pseudomonas or MRSA infections. Thus, will treat for CAP pathogens with low threshold for expanding coverage based on clinical presentation. Ceftriaxone (12/28-12/30) and azithromycin (12/28-12/30) discontinued. ? Midodrine 10 mg via G-tube TID ? Sputum culture: GNR #Urinary tract infection Urine culture: enterococcus faecalis ? Levofloxacin 750 mg via GT daily for 5 days #PEG tube ? Jevity 1.2 at 20 ml/hr via PEG tube by pump. Advance 10 ml every 8 hrs to goal rate of 60 ml/hr x 22 hrs. ? If no IV fluids, water flushes of 25 ml/hr #Hypophosphatemia #Hypokalemia ? Follow-up AM phos levels and replete as needed #History of hypertension Has propranolol 20 mg via GT BID and losartan 25 mg GT daily ? Hold antihypertensives given low BP #Bowel regimen ? Sennosides 2 tabs daily ? Poyethylene glycol 17 g GT daily PRN ? Mag hydroxide 30 mL GT daily PRN ? Bisacodyl 10 mg [place] daily PRN Hospital management: Disposition: pending cultures and sensitivities Fluids: none, on tube feeds Diet: Jevity 1.2 with goal rate of 60 mL/hr Lines: PIV Tubes: ET tube, PEG tube DVT prophylaxis: heparin SC BID GI prophylaxis: pantoprazole 40 mg IV daily CODE STATUS: full code ----- Plan discussed with attending physician Dr. Omer and senior resident physician Dr. Akbar Moulton MD PGY-1 Internal Medicine Attending Provider Attestation/Addendum I have discussed and was present for the essential components of the history, physical examination, diagnosis, and treatment plan with the resident. I agree with the patient's care as documented by the resident and amended herein by me. Adolph Omer DO. Patient seen and evaluated this AM. No acute events overnight, blood pressure still on the softer side, ET tube demonstrating GNR, urine cultures demonstrating Enterococcus. At this time we will change antibiotics to Levaquin which will cover the Enterococcus and will be adequate coverage for possible pneumonia. Started IV however can DC in 1 to 2 days on oral Levaquin. Will replete electrolytes as needed and continue to follow-up with culture results. Although this document has been carefully reviewed, there may still be some phonetic and other typographical errors. These errors are purely grammatical due to imperfections in the software program and should not be construed in any way to compromise the substance of the patient's medical care during this visit.
[2024-12-30] MEDS: POT PHOS 15 mMol in NS 250 ML 15 MMOL/250 ML BAG 62.5 MMOL IV (12:24)
[2024-12-30] MEDS: LEVOFLOXACIN/D5W 750MG IVPB 750 MG/150 ML BAG 100 MG IV (14:11)
[2024-12-31] VITALS (13 sets, daily range): BP systolic 94–115; BP diastolic 63–73; PULSE 55–108; RESP 17–96; TEMP 36.7–38; O2SAT 97–100
[2024-12-31] MEDS: ALBUTEROL/IPRATROPIUM (Duoneb) RT SOL 3 ML NEBU INH ×4 (00:23→19:03)
[2024-12-31 06:02] LABS: Basophils % (Auto) 0 % (0-2.5); Eosinophils % (Auto) 0 % (0-10); Hematocrit 31.6 % (41.0-53.0); Immature Granulocytes % (Auto) 0 % (0-0); Immature Granulocytes Auto 0.03 Thou/mm3 (0.00-0.00); Lymphocytes # (Auto) 1.5 Thou/mm3 (1.0-4.8); Lymphocytes % (Auto) 9 % (10-50); Mean Corpuscular HGB Conc 34.8 g/dl (31.0-37.0); Mean Corpuscular Volume 92 fL (80-100); Monocytes # (Auto) 1.8 Thou/mm3 (0.0-0.8); Monocytes % (Auto) 11 % (0-12); Neutrophils # (Auto) 12.6 Thou/mm3 (1.8-7.7); Neutrophils % (Auto) 79 % (37-80); Nucleated Red Blood Cell % 0 /100 WBC (0); Platelet Count 200 Thou/mm3 (140-440); RDW Standard Deviation 41.1 fL (35.1-43.9); Red Blood Count 3.44 Miln/mm3 (4.50-5.90); White Blood Count 15.9 Thou/mm3 (3.8-10.6)
[2024-12-31] MEDS: Milk Of Magnesia Susp 30 ML UDC GT (06:05)
[2024-12-31] MEDS: ACETAMINOPHEN SOL 325 MG/10 ML UDC 650 MG GT ×2 (06:05→21:40)
[2024-12-31] MEDS: guaiFENesin SYRUP 200 MG/10 ML UDC 100 MG GT (06:05)
[2024-12-31 06:49] LABS: Anion Gap 7 (7-16); BUN/Creatinine Ratio 14 Ratio (12-20); Blood Urea Nitrogen 7 mg/dL (9-23); Calcium 8.4 mg/dL (8.3-10.6); Carbon Dioxide 27.2 mMol/L (20.0-31.0); Chloride 102 mMol/L (98-107); Creatinine (Component) 0.5 mg/dL (0.6-1.3); Estimated Creatinine Clearance 163.4 mL/min (>60); Glucose 132 mg/dL (74-106); Osmolality,Calculated 271 (275-295); Phosphorous 2.9 mg/dL (2.4-5.1); Potassium 3.1 mMol/L (3.4-5.1); Sodium 136 mMol/L (136-145); eGFR > 60 See Note
[2024-12-31] MEDS: LEVOFLOXACIN/D5W 750MG IVPB 750 MG/150 ML BAG 100 MG IV (10:25)
[2024-12-31] MEDS: POTASSIUM CHLORIDE 10% 20 MEQ/15 ML UDC 40 MEQ PO (10:25)
[2024-12-31] MEDS: SENNA TABLET 2 TAB GT (10:25)
[2024-12-31] MEDS: HEPARIN SOD INJ 5000 UNIT/ML VIAL SC ×2 (10:25→21:40)
[2024-12-31] MEDS: PANTOPRAZOLE INJ 40 MG VIAL IVP (10:25)
--- NOTE | 2024-12-31 11:08 | PC.NURSE ---
Dr. Moulton aware of sputum culture results.
--- NOTE | 2024-12-31 15:05 | PC.NURSE ---
Dr. Galo aware of pt. copious secretions from trach. orders to hold tube feeds until 1800 and then resume at 10 cc/hr. RT Marci states This is pt. normal.
--- NOTE | 2024-12-31 15:13 | PC.NURSE ---
Addendum entered by Sabiha Hazel RN 12/31/24 18:20: per Dr. Webber keep tube feeds at 20cc/hr over night Original Note: Per Dr. Bhakta hold tube feeds until 1715 and resume at 20 cc/hr.
--- NOTE | 2024-12-31 15:40 | PD.RESPRO ---
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 Also noted to be hypotensive with BP of 93/55. In ED, vitals significant for BP of 91/54 s/p IVF per sepsis protocol, HR 65, afebrile, on 40% FiO2 and 10 L blow-by. Labs significant for WBC 18.7, lactate 2.1 down trended to 0.9, phosphorus 2.0, negative troponin, negative BNP, negative Pro-Kj. UA showed 46 WBC and LE positive, no bacteria. Admitted for management of pneumonia possible urinary tract infection. 12/29: No acute overnight events. Seen and examined at bedside with copious amounts of secretions coming from trach and communicated with nursing staff and RT to coordinate frequent suctioning. Otherwise, noted to have temp 100.0 F. Currently on trickle tube feedings until RD recommendations. 12/30: No acute overnight events. Seen and examined at bedside and continues to have copious amount of secretions from trach. No fevers noted and WBC downtrending. Urine cultures came back positive for Enterococcus faecalis sensitive to levofloxacin, which was started. Will continue to await for sputum culture results. 12/31: Patient seen and examined at bedside. No acute overnight events. Vitals showing improved BP, otherwise stable; patient afebrile. Labs significant for increased WBC, although patient's antibiotics were changed to levaquin per sensitivities. Final cultures returned, will continue levaquin at this time. Potassium repleted. Patient continues to have copious secretions. Per RT, this is normal for patient while at subacute facility. Continuing tube feeds and suctioning. Left VM for family, but none at bedside during admission. Will reach out again. Exam Vital Signs Temp Pulse Resp BP Pulse Ox O2 Del Method O2 Flow Rate 98.5 F 95 96 H 113/72 97 Trach Collar 10 12/31/24 12:00 12/31/24 14:12 12/31/24 12:00 12/31/24 14:12 12/31/24 12:00 12/31/24 12:00 12/31/24 12:00 FiO2 40 12/31/24 12:00 Narrative Exam General: mostly asleep, laying comfortably in bed HEENT: trach in place with copious white mucous secretions, NC/AT, white patch on tongue Cardiovascular: regular rate and rhythm, S1/S2 present, no murmurs appreciated Pulmonary: coarse/bronchial breath sounds Abdominal: PEG tube in place, insertion site C/D/I, soft, non-distended, no rebound/guarding Musculoskeletal: flexed contractures in bilateral upper and lower extremities, muscular atrophy in limbs Skin: warm and dry, intact, no rashes Neuro: intermittently awake, opens eyes to voice but does not follow commands Objective Labs 12/31/24 04:53 12/31/24 04:53 Labs: Laboratory Results - last 24 hr 12/31/24 04:53 WBC 15.9 H D RBC 3.44 L Hgb 11.0 L Hct 31.6 L MCV 92 MCH 32.0 MCHC 34.8 RDW Std Deviation 41.1 Plt Count 200 Neut % (Auto) 79 Lymph % (Auto) 9 L [place] % (Auto) 11 Eos % (Auto) 0 Baso % (Auto) 0 Neut # (Auto) 12.6 H Lymph # (Auto) 1.5 [place] # (Auto) 1.8 H Eos # (Auto) 0.0 Baso # (Auto) 0.0 Immature Gran # (Auto) 0.03 H Absolute Nucleated RBC 0.00 Immature Gran % 0 Nucleated RBC % 0 Sodium 136 Potassium 3.1 L Chloride 102 Carbon Dioxide 27.2 Anion Gap 7 BUN 7 L Creatinine 0.5 L Estim Creat Clear Calc 163.4 eGFR > 60 BUN/Creatinine Ratio 14 Glucose 132 H Calculated Osmolality 271 L Calcium 8.4 Phosphorus 2.9 Magnesium 2.0 Quality Measures Quality Measures sepsis Current suspected stage: ruled out Possible source: pulmonary Blood cultures ordered: completed in ED Antibiotic ordered: Yes Assessment & Plan Assessment Current Active Medications: Generic Name Dose Route Start Last Admin Trade Name Freq PRN Reason Stop Dose Admin Acetaminophen 650 mg 12/30/24 16:31 12/31/24 06:05 Acetaminophen Johanne 325 Mg/10 Ml Udc GT 01/29/25 16:30 650 mg Q6H PRN Administration PAIN OR FEVER > 100.4 Albuterol/Ipratropium 3 ml 12/28/24 13:00 12/31/24 07:02 Albuterol/Ipratropium (Duoneb) Rt Johanne 3 Ml Nebu INH 01/27/25 12:59 3 ml Q6HRRT NADINE Administration Bisacodyl 10 mg 12/28/24 15:11 Bisacodyl 10 Mg Supp [place] 01/27/25 15:10 QDAY PRN Constipation Protocol Guaifenesin 100 mg 12/29/24 02:58 12/31/24 06:05 Guaifenesin Syrup 200 Mg/10 Ml Udc GT 01/28/25 02:57 100 mg QID PRN Administration COUGH Protocol Heparin Sodium (Porcine) 5,000 unit 12/28/24 21:00 12/31/24 10:25 Heparin Sod Inj 5000 Unit/Ml Vial SC 01/11/25 20:59 5,000 unit Q12HR NADINE Administration Levofloxacin/Dextrose 750 mg in 150 mls @ 100 mls/hr 12/30/24 12:45 12/31/24 10:25 Levaquin Ivpb IV 01/06/25 12:44 100 mls/hr QDAY NADINE Administration Ipratropium [place] 2 puff 12/28/24 15:20 Ipratropium [place] Hfa 12.9 Gm Inh INH 01/27/25 18:59 Q4HRRT PRN wheezing Magnesium Hydroxide 30 ml 12/28/24 15:22 12/31/24 06:05 Milk Of Magnesia Susp 30 Ml Udc GT 01/27/25 15:21 30 ml QDAY PRN Administration CONSTIPATION Protocol Midodrine 10 mg 12/28/24 22:00 12/31/24 14:12 Midodrine 5 Mg Tablet GT 01/27/25 21:59 Not Given TID NADINE Ondansetron HCl 4 mg 12/28/24 15:11 Ondansetron Inj 2 Mg/Ml Inj 2 Ml IV 01/27/25 15:10 Q6H PRN NAUSEA OR VOMITING Protocol Pantoprazole Sodium 40 mg 12/29/24 09:00 12/31/24 10:25 Pantoprazole Inj 40 Mg Vial IVP 01/28/25 08:59 40 mg QDAY NADINE Administration Polyethylene Glycol 17 gm 12/28/24 15:22 12/30/24 05:56 Polyethylene Glycol 17 Gm Packet GT 01/28/25 08:59 17 gm QDAY PRN Administration CONSTIPATION Sennosides 2 tab 12/29/24 09:00 12/31/24 10:25 Senna Tablet GT 01/28/25 08:59 2 tab QDAY NADINE Administration Protocol Plan Demertio Monreal is a 54-year-old male who comes from subacute in 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 #Pneumonia, b/l perihilar and right basilar #Lactic acidosis, resolved #Hypotension, improving WBC improving and no fevers in last 24 hours. No significant risk for MDR pathogens as he is not on ventilator in subacute and does not have a history of Pseudomonas or MRSA infections. Thus, will treat for CAP pathogens with low threshold for expanding coverage based on clinical presentation. Ceftriaxone (12/28-12/30) and azithromycin (12/28-12/30) discontinued. ? Midodrine 10 mg via G-tube TID; MAP noted in 70s ? Sputum culture: Providencia, sensitive to levaquin (as below) - Copious secretions are baseline normal for patient - WBC uptrending, continue to monitor on a.m. labs #Urinary tract infection Urine culture: enterococcus faecalis ? Levofloxacin 750 mg via GT daily for 5 days #PEG tube ? Jevity 1.2 at 20 ml/hr via PEG tube by pump. Advance 10 ml every 8 hrs to goal rate of 60 ml/hr x 22 hrs. ? If no IV fluids, water flushes of 25 ml/hr #Electrolyte abnormalities Replete as needed #History of hypertension Has propranolol 20 mg via GT BID and losartan 25 mg GT daily ? Hold antihypertensives given low BP, and patient on midodrine --> MAP in 70s #Bowel regimen ? Sennosides 2 tabs daily ? Poyethylene glycol 17 g GT daily PRN ? Mag hydroxide 30 mL GT daily PRN ? Bisacodyl 10 mg [place] daily PRN Hospital management: Disposition: cultures returned, sensitive to levaquin; monitor WBC, once improving can DC to Subacute facility Fluids: none, on tube feeds Diet: Jevity 1.2 with goal rate of 60 mL/hr with water flushes Lines: PIV Tubes: ET tube, PEG tube DVT prophylaxis: heparin SC BID GI prophylaxis: pantoprazole 40 mg IV daily CODE STATUS: full code Patient seen and care discussed with my attending Dr. Omer. Mat Galo MD PGY-3 Attending Provider Attestation/Addendum I have discussed and was present for the essential components of the history, physical examination, diagnosis, and treatment plan with the resident. I agree with the patient's care as documented by the resident and amended herein by me. Adolph Omer DO. Although this document has been carefully reviewed, there may still be some phonetic and other typographical errors. These errors are purely grammatical due to imperfections in the software program and should not be construed in any way to compromise the substance of the patient's medical care during this visit.
[2025-01-01] VITALS (8 sets, daily range): BP systolic 95–124; BP diastolic 61–72; PULSE 60–86; RESP 17–22; TEMP 36.3–37.1; O2SAT 91–100
[2025-01-01] MEDS: ALBUTEROL/IPRATROPIUM (Duoneb) RT SOL 3 ML NEBU INH ×2 (00:37→07:13)
[2025-01-01 06:06] LABS: Basophils % (Auto) 0 % (0-2.5); Eosinophils # (Auto) 0.1 Thou/mm3 (0.0-0.5); Eosinophils % (Auto) 2 % (0-10); Hematocrit 31.9 % (41.0-53.0); Hemoglobin 11.1 g/dL (13.5-16.0); Immature Granulocytes % (Auto) 0 % (0-0); Immature Granulocytes Auto 0.02 Thou/mm3 (0.00-0.00); Lymphocytes # (Auto) 1.4 Thou/mm3 (1.0-4.8); Lymphocytes % (Auto) 17 % (10-50); Mean Corpuscular HGB Conc 34.8 g/dl (31.0-37.0); Mean Corpuscular Volume 92 fL (80-100); Monocytes # (Auto) 0.9 Thou/mm3 (0.0-0.8); Monocytes % (Auto) 10 % (0-12); Neutrophils # (Auto) 6.1 Thou/mm3 (1.8-7.7); Neutrophils % (Auto) 71 % (37-80); Nucleated Red Blood Cell % 0 /100 WBC (0); Platelet Count 166 Thou/mm3 (140-440); RDW Standard Deviation 41.5 fL (35.1-43.9); Red Blood Count 3.47 Miln/mm3 (4.50-5.90); White Blood Count 8.5 Thou/mm3 (3.8-10.6)
[2025-01-01 06:20] LABS: Alanine Aminotransferase 167 U/L (10-49); Albumin, Serum 3.2 gm/dL (3.5-5.0); Albumin/Globulin Ratio 1.2 (1.2-2.2); Alkaline Phosphatase 180 U/L (46-116); Anion Gap 10 (7-16); Aspartate Amino Transferase 178 U/L (0-34); BUN/Creatinine Ratio 10 Ratio (12-20); Bilirubin,Total 2.4 mg/dL (0.3-1.2); Blood Urea Nitrogen 6 mg/dL (9-23); Calcium (Corrected) 9.6 mg/dL (8.5-10.1); Carbon Dioxide 25.4 mMol/L (20.0-31.0); Chloride 105 mMol/L (98-107); Creatinine (Component) 0.6 mg/dL (0.6-1.3); Estimated Creatinine Clearance 136.2 mL/min (>60); Globulin 2.7 gm/dL (2.3-3.5); Glucose 123 mg/dL (74-106); Osmolality,Calculated 278 (275-295); Phosphorous 2.4 mg/dL (2.4-5.1); Potassium 3.5 mMol/L (3.4-5.1); Sodium 140 mMol/L (136-145); Total Protein 5.9 gm/dL (5.7-8.2); eGFR > 60 See Note
--- NOTE | 2025-01-01 08:32 | XR_ITS ---
Examination: Abdomen sonogram, Limited Date and time of exam: January 01, 2025 0843 hours INDICATIONS: Elevated bilirubin and other liver function tests on laboratory examination today Technique: Real-time moraes scale transabdominal sonographic images of the upper abdomen obtained. Findings: No gallstones identified Gallbladder wall 0.53 cm Common bile duct 0.3 cm no stones Pancreatic head 2.2 cm Liver 16.5 cm fatty infiltration Normal hepatopedal portal venous flow Patent IVC IMPRESSION: Thickened gallbladder wall, clinical correlation advised, consider HIDA scan or MRCP follow-up to exclude cholecystitis Mild hepatomegaly fatty infiltration
[2025-01-01] MEDS: PANTOPRAZOLE INJ 40 MG VIAL IVP (09:17)
[2025-01-01] MEDS: LEVOFLOXACIN/D5W 750MG IVPB 750 MG/150 ML BAG 100 MG IV (09:18)
[2025-01-01] MEDS: AMOXICILLIN/POT CLAV 875 TABLET 1 TAB PO (09:18)
[2025-01-01] MEDS: HEPARIN SOD INJ 5000 UNIT/ML VIAL SC (09:18)
[2025-01-01] MEDS: SENNA TABLET 2 TAB GT (09:18)
--- NOTE | 2025-01-01 09:19 | PC.SS ---
SS follow up note; Ultrasound pending and Hep Pannels, possible discharge today or tomorrow.
[2025-01-01 09:50] LABS: Hepatitis A Antibody IgM Non Reactive (Non React); Hepatitis B Core Antibody IgM Non Reactive (Non React); Hepatitis B Surface Antigen Non Reactive (Non React); Hepatitis C Antibody Non Reactive (Non React)
--- NOTE | 2025-01-01 11:49 | PD.RESDS ---
Planned Discharge Date 01/01/25 DS: Providers Provider Date of admission: 12/28/24 11:46 Primary care physician: Lashell Keita MD Admitting Provider: Edis Omer DO Attending Provider on Admission: Edis Omer DO Consults: 12/28/24 17:00 Referral Registered Dietitian Routine Comment: Instructions: Tube feeding recommendations. Coming from subacute w/ PEG tube. 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 In the ED patient was hypotensive, lactic acidosis noted and UA was consistent with UTI. Sepsis bolus was given and patient additionally required midodrine. Patient was started on Rocephin and azithromycin, and admitted for further management. Blood cultures were negative. Urine culture grew Enterococcus. Sputum cultures grew Proteus and Providencia. His antibiotics were adjusted to Levaquin and Augmentin. On day of discharge, concern for transaminitis, therefore ultrasound liver and hepatitis panel ordered. US liver was concerning for possible gallbladder wall edema, however patient's current condition he would not be a candidate for surgical intervention. Patient was stable to be discharged back to subacute facility. #Gram-negative pneumonia with Proteus/Providencia, perihilar and right basilar #Lactic acidosis, resolved #Hypotension, improving #Enterococcus UTI #S/p PEG tube #Electrolyte abnormalities #HTN #Bowel regimen Patient seen and care discussed with my attending Dr. Omer. Mat Galo MD PGY-3 Status at Discharge Cognitive/behavioral status at discharge: unable to assess, appears to be at baseline Time Spent with Patient Time attestation: Total time spent providing and/or coordinating discharge services: Time spent: Greater than 30 minutes Exam Vital Signs Temp Pulse Resp BP Pulse Ox O2 Del Method O2 Flow Rate 98.7 F 84 22 H 124/72 93 L Blow-by 10 01/01/25 07:47 01/01/25 07:47 01/01/25 07:47 01/01/25 07:47 01/01/25 07:47 01/01/25 07:47 01/01/25 07:13 FiO2 40 01/01/25 07:13 Narrative Exam General: mostly asleep, laying in bed HEENT: trach in place with copious white mucous secretions, NC/AT, white patch on tongue Cardiovascular: regular rate and rhythm, S1/S2 present, no murmurs appreciated Pulmonary: coarse/bronchial breath sounds Abdominal: PEG tube in place, insertion site C/D/I, soft, non-distended, no rebound/guarding Musculoskeletal: flexed contractures in bilateral upper and lower extremities, muscular atrophy in limbs Skin: warm and dry, intact, no rashes Neuro: intermittently awake, opens eyes to voice but does not follow commands Discharge Plan Plan Patient Disposition: Xfer Skilled Nsg Fac (SNF) Patient condition on transfer: Stable Care Plan Goals: ? Continue home medications as prescribed - Complete levaquin course (5 days) and Augmentin course (7 days) for UTI & Pneumonia - Added midodrine for hypotension. Can hold if SBP >110 or MAP >70 - LFTs were elavted, likely related to levaquin. Can repeat liver panel within 1-2 weeks. ? Return to ED if symptoms worsen or recur FEEDING GUILDLINES Jevity 1.2 at 20 ml/hr via PEG tube by pump. Advance 10 ml every 8 hrs to goal rate of 60 ml/hr x 22 hrs. If no IV fluids, water flushes of 25 ml/hr (or per MD). Last advance was from 20ml/hr to 30ml/hr at 0800. Due to advance by 10 ml at 1600. Prescriptions/Referrals Prescriptions/Med Rec: New amoxicillin-pot clavulanate 875-125 mg Tablet 1 tab PO BID 7 Days Qty: 14 0RF levofloxacin in D5W 750 mg/150 mL Piggyback 750 mg IV QDAY 5 Days Qty: 3600 0RF midodrine 10 mg tablet 10 mg feeding tube TID 30 Days Qty: 90 0RF Rx Instructions: can hold for SBP >110 or MAP >70 magnesium hydroxide [Milk of Magnesia] 400 mg/5 mL Suspension 30 ml G-tube QDAY PRN (Reason: Constipation) 30 Days Qty: 3000 0RF Continued sennosides [senna] 8.6 mg Tablet 8.6 mg feeding tube BID polyethylene glycol 3350 [Miralax] 17 gram Powder In Packet 17 g feeding tube QDAY PRN (Reason: constipation) magnesium hydroxide [Milk of Magnesia] 400 mg/5 mL Suspension 30 ml feeding tube PRN PRN (Reason: constipation) bisacodyl [Dulcolax (bisacodyl)] 10 mg Suppository 10 mg AZ PRN PRN (Reason: constipation) propranolol 20 mg Tablet 20 mg feeding tube TID Natural Tears (PF) 0.1-0.3 % Dropperette 2 drp OPHTHALMIC (EYE) BID Rx Instructions: dex/hypro/gly artificial tears (Genteal Teras) 2 drops to both eyes balsam jory-castor oil [Venelex] Ointment 1 applicatio topical BID Qty: 30 0RF Atrovent HFA 17 mcg/actuation HFA aerosol inhaler 2 inh inhalation Q4H PRN (Reason: shortness of breath or wheezing) acetaminophen 325 mg tablet 650 mg feeding tube Q4H PRN (Reason: fever or pain) Fleet Enema 19-7 gram/118 mL Enema 133 ml AZ PRN PRN (Reason: Constipation) dexlansoprazole [Dexilant] 30 mg capsule,biphase delayed releas 30 mg PO QDAY losartan [Cozaar] 25 mg tablet 25 mg feeding tube QDAY multivitamin with minerals Tablet 1 tab PO QDAY Rx Instructions: via g tube ondansetron HCl 4 mg tablet 4 mg PO Q6H PRN (Reason: nausea and vomiting) alum-mag hydroxide-simeth [Ivanna-Lanta] 200-200-20 mg/5 mL suspension 30 ml PO QID PRN (Reason: dyspepsia) Rx Instructions: med lists from Subacute does not state dose(mg) of med. omega 5-gkp-dre-fish oil [Fish Oil] 1,200 (144-216) mg capsule 1 cap PO QDAY Rx Instructions: tablet via gtube per med lists from Subacute. Discontinued multivitamin Tablet 1 tab feeding tube QDAY ipratropium-albuterol 0.5 mg-3 mg(2.5 mg base)/3 mL Solution For Nebulization 3 ml INH Q2HR PRN (Reason: Shortness Of Breath Or Wheeze) Qty: 3 0RF ceftriaxone 1 gram recon soln 1 gm IV Q24H Qty: 5 0RF Rx Instructions: 5 more doses at the subacute. esomeprazole sodium 40 mg Recon Soln 40 mg IVP QDAY Qty: 30 0RF melatonin 3 mg Tablet 3 mg feeding tube HS Qty: 0 0RF ibuprofen [Advil] 200 mg tablet 200 mg PO Q6H PRN (Reason: pain) Referrals: Lashell Keita MD [Primary Care Provider] - Patient/Caregiver Discharge Instructions Print Language: Kinyarwanda Stand Alone Forms: Caitlin Award Info., Patient Portal Info Letter Discharge Order Discharge Orders: Discharge (Routine); Ordered 01/01/25 Ordered By: Ishaan Webber Quality Discharge Quality Measures VTE prophylaxis Attestestation Attestation I have discussed and was present for the essential components of the discharge history, physical examination, diagnosis, and discharge treatment plan with the resident. I agree with the patient's discharge care as documented by the resident and amended herein by me. Adolph Omer, . The patient understood all discharge instructions, all questions were answered satisfactorily. The patient was instructed to return to the Emergency Department is symptoms worsened or persisted. Patient was stable, afebrile tolerating tube feeds at time of discharge to facility. See resident note for additional details on antibiotic choice and course. Although this document has been carefully reviewed, there may still be some phonetic and other typographical errors. These errors are purely grammatical due to imperfections in the software program and should not be construed in any way to compromise the substance of the patient's medical care during this visit.
--- NOTE | 2025-01-22 10:24 | CHAP ---
Responded to Raid Response at 10:24. Patient was being moved to regular hospital.
== END 2025-01-01 12:01 | disposition skilled nursing facility (03) | DRG 137 ==
LOC: SERX 11:45 → SERHOLD 11:52 → S3NX 20:52
PROVIDERS: Student in an Organized Health Care Education/Training Program; Admitting Provider Student in an Organized Health Care Education/Training Program; Emergency Provider Emergency Medicine; PCP Family Medicine; Visit Provider Student in an Organized Health Care Education/Training Program
DX: J15.69 Pneumonia due to other Gram-negative bacteria (principal); R40.3 Persistent vegetative state; I95.9 Hypotension, unspecified; G93.1 Anoxic brain damage, not elsewhere classified; E87.6 Hypokalemia; J96.10 Chronic respiratory failure, unspecified whether with hypoxia or hypercapnia; N39.0 Urinary tract infection, site not specified; E83.39 Other disorders of phosphorus metabolism; E87.20 Acidosis, unspecified; Z93.1 Gastrostomy status; I10 Essential (primary) hypertension; Z87.820 Personal history of traumatic brain injury; Z99.11 Dependence on respirator [ventilator] status; Z93.0 Tracheostomy status; Z79.899 Other long term (current) drug therapy; B95.2 Enterococcus as the cause of diseases classified elsewhere; B96.4 Proteus (mirabilis) (morganii) as the cause of diseases classified elsewhere
CPT/HCPCS: 36415; 76705; 80048; 80053; 80074; 81001; 83605; 83615; 83690; 83735; 83880; 84100; 84145; 84484; 85025; 85610; 85730; 87040; 87077; 87081; 87086; 87186; 87205; 87811; 93225; 94640; 96361; 96365; 96366; 96367; 99291; A9270; J0696; J1644; J1956; J2470; J2543; J3475; J7030; J7120; J7999

== ENCOUNTER 2025-05-29 20:04 | Inpatient (IN) | payer MEDICAID, SELFPAY ==
--- NOTE | 2025-05-29 20:09 | PD.EDFEVER ---
ED Fever RME/HPI General Chief Complaint: Fever Stated Complaint: FEVER Time Seen by Provider: 05/29/25 20:10 Arrival date/time: 05/29/25 20:04 RME / HPI RME / HPI Narrative: Refer to MDM. Related Data Home Medications ?Medication ?Instructions ?Recorded ?Confirmed acetaminophen 325 mg tablet 650 mg G-tube Q6HR PRN Pain 02/22/25 02/22/25 aluminum-mag hydroxide-simethicone 30 ml PO QID PRN Upset 02/22/25 02/22/25 200 mg-200 mg-20 mg/5 mL oral susp Stomach/Indigestion (Ivanna-Lanta) artificial 2 drp Both eyes BID 02/22/25 02/22/25 tears(dednbwp-vsvtgwfb-agyyiiv) 0.1 %-0.3 %-0.2 % eye drops (GenTeal Tears Moderate) bisacodyl 10 mg rectal suppository 10 mg RI PRN PRN Constipation 02/22/25 02/22/25 (Dulcolax (bisacodyl)) carbamide peroxide 6.5 % ear drops 5 drp otic (ear) Q61D 02/22/25 02/22/25 (Ear Wax Removal Drops) carbamide peroxide 6.5 % ear drops 5 drp otic (ear) Q61D 02/22/25 02/22/25 (Ear Wax Removal Drops) carbamide peroxide 6.5 % ear drops 5 drp otic (ear) Q61D 02/22/25 02/22/25 (Ear Wax Removal Drops) carbamide peroxide 6.5 % ear drops 5 drp otic (ear) Q61D 02/22/25 02/22/25 (Ear Wax Removal Drops) carbamide peroxide 6.5 % ear drops 5 drp otic (ear) Q61D 02/22/25 02/22/25 (Ear Wax Removal Drops) carbamide peroxide 6.5 % ear drops 5 drp otic (ear) Q61D 02/22/25 02/22/25 (Ear Wax Removal Drops) carbamide peroxide 6.5 % ear drops 5 drp otic (ear) Q61D 02/22/25 02/22/25 (Ear Wax Removal Drops) carbamide peroxide 6.5 % ear drops 5 drp otic (ear) Q61D 02/22/25 02/22/25 (Ear Wax Removal Drops) dexlansoprazole 30 mg 30 mg G-tube QDAY 02/22/25 02/22/25 capsule,biphase delayed release (Dexilant) fish, borage, flaxseed oils-omega 1,200 mg G-tube QDAY 02/22/25 02/22/25 3,6,9 comb no.1 1,200 mg capsule ([place] 3-6-9) ipratropium bromide 17 2 puff INH Q4HRRT PRN SOB, wheezing 02/22/25 02/22/25 mcg/actuation HFA aerosol inhaler (Atrovent HFA) losartan 25 mg tablet 25 mg G-tube QDAY 02/22/25 02/22/25 magnesium hydroxide 400 mg/5 mL 30 ml G-tube PRN PRN Constipation 02/22/25 02/22/25 oral suspension (Milk of Magnesia) midodrine 10 mg tablet 10 mg G-tube Q8HR 02/22/25 02/22/25 [id number] 1 ea G-tube QDAY 02/22/25 02/22/25 fumarate 7.5 mg-folic acid 400 mcg tablet ondansetron HCl 4 mg tablet 4 mg G-tube Q6HR PRN Nausea Or 02/22/25 02/22/25 Vomiting polyethylene glycol 3350 17 gram 17 g G-tube QDAY PRN No Bowel 02/22/25 02/22/25 oral powder packet Movement propranolol 20 mg tablet 20 mg G-tube TID 02/22/25 02/22/25 sennosides 8.6 mg tablet (Senna 8.6 mg G-tube BID 02/22/25 02/22/25 Laxative) sodium phosphates 19 gram-7 133 ml RI PRN PRN Constipation 02/22/25 02/22/25 gram/118 mL enema (Fleet Enema) Previous Rx's ?Medication ?Instructions ?Recorded acetaminophen 325 mg tablet 325 mg G-tube Q4HR PRN Fever>100.0 05/29/25 7 days Allergies Allergy/AdvReac Type Severity Reaction Status Date / Time No Known Allergies Allergy Verified 09/08/19 16:09 Review of Systems Review of Systems Systems Reviewed: All systems reviewed, normal except as documented Past Medical History Past Medical History NEUROLOGIC: Positive Neurological Disorders, Head Trauma and Traumatic Brain Injury CARDIAC: Positive Cardiac Arrhythmia and Edema RESPIRATORY: Positive Asthma MUSCULOSKELETAL: Positive Musculoskeletal Disorders and Fractures ENT: Positive Head Trauma OTHER HISTORY: Positive Hospitalization Surgical History SURGICAL: Positive Tracheostomy and Gastrostomy Physical Exam Narrative Physical exam: Refer to MDM. ED Exam Narrative Physical exam: Refer to MDM. Course Course Course Narrative: CXR is ordered for determining the etiology of shortness of breath. Quality Measures none Orders Category Date Time Status Admit to Inpatient Status Routine Admission 05/30/25 00:08 Active Patient Condition Routine Admission 05/30/25 00:08 Ordered Aspiration precautions NOW Care 05/30/25 00:10 Active COVID-19 Screening Questionnaire NOW Care 05/29/25 23:53 Active Decision to Admit X1 Care 05/29/25 23:53 Active NPO NOW Care 05/30/25 00:10 Active Notify provider NEEDED Care 05/30/25 00:08 Active Obtain weight DAILY Care 05/30/25 00:09 Active Saline [Insert IV] NOW Care 05/29/25 20:10 Active Strict Intake and Output Routine Care 05/30/25 00:10 Ordered Diet NPO (NOW) Diet 05/30/25 00:10 Active XR chest 1V portable Stat Exams 05/29/25 20:15 Completed ABG [Arterial Blood Gas] Stat Lab 05/29/25 20:24 Completed Bilirubin,Direct Stat Lab 05/29/25 20:25 Completed Blood Culture (Lab) Stat Lab 05/29/25 20:25 Received CBC AM DRAW Lab 05/31/25 05:00 Ordered CBC AM DRAW Lab 06/01/25 05:00 Ordered CBC AM DRAW Lab 06/02/25 05:00 Ordered CBC AM DRAW Lab 06/03/25 05:00 Ordered CBC Stat Lab 05/29/25 20:25 Completed CMP [Comprehensive Metabolic Panel] Stat Lab 05/29/25 20:25 Completed CRP [C-Reactive Protein] Stat Lab 05/29/25 20:25 Completed Comprehensive Metabolic Panel AM DRAW Lab 05/30/25 05:00 Ordered Comprehensive Metabolic Panel AM DRAW Lab 05/31/25 05:00 Ordered Comprehensive Metabolic Panel AM DRAW Lab 06/01/25 05:00 Ordered Comprehensive Metabolic Panel AM DRAW Lab 06/02/25 05:00 Ordered ESR [Sed Rate (ESR)] Stat Lab 05/29/25 20:25 Completed Lactate (Lactic Acid) Stat Lab 05/29/25 20:25 Completed Lactic Acid, 3 HR Stat Lab 05/30/25 00:03 Ordered Magnesium Stat Lab 05/29/25 20:25 Completed Procalcitonin Stat Lab 05/29/25 20:25 Completed RSV [Respiratory Syncytial Virus Ag] Stat Lab 05/29/25 20:22 Completed Strep A Rapid Stat Lab 05/29/25 20:22 Completed UA, C/S IF [Urinalysis, C/S if Indicated] Stat Lab 05/29/25 20:42 Completed Acetaminophen Supp [Tylenol Supp] Med 05/30/25 00:08 Active 650 mg RI Q4HR PRN Cefepime Inj [Maxipime Inj] 2 gm Med 05/30/25 04:00 Ordered SODIUM CHLORIDE 0.9% (Popper) [Ns 0.9% (P)] 50 ml IV Q8H Cefepime Inj [Maxipime Inj] 2 gm Med 05/29/25 20:12 Discontinued SODIUM CHLORIDE 0.9% (Popper) [Ns 0.9% (P)] 50 ml IV X1 Enoxaparin [Lovenox] Med 05/30/25 09:00 Active 40 mg SC QDAY Ketorolac Inj [Toradol Inj] Med 05/29/25 20:11 Discontinued 30 mg IVP X1 ONE MethylPREDNISolone.* [SoluMEDROL Inj] Med 05/29/25 20:14 Discontinued 125 mg IVP X1 ONE Milk Of Magnesia Susp [Mom Susp] Med 05/30/25 00:08 Active 30 ml PO QDAY PRN Norepinephrine/D5W 8mg/250ml [Levophed in D5W 8mg/250ml Med 05/29/25 22:37 Active ] 8 mg in 250 ml IV 0.05 mcg/kg/min Norepinephrine/NS 16mg/250ml [Levophed in NS 16mg/250ml Med 05/29/25 22:25 Discontinued ] 16 mg in 250 ml IV 0.05 mcg/kg/min Sodium Chloride 0.9% 1000 ml [Ns] 1,000 ml Med 05/29/25 20:11 Discontinued IV 999 mls/hr Sodium Chloride 0.9% 1000 ml [Ns] 1,000 ml Med 05/29/25 20:12 Discontinued IV 999 mls/hr Sodium Chloride 0.9% 1000 ml [Ns] 1,000 ml Med 05/29/25 20:14 Discontinued IV 999 mls/hr Vancomycin Inj 2,000 mg Med 05/29/25 20:13 Discontinued Sodium Chloride 0.9% 500 ml [Ns] 500 ml IV X1 Vancomycin Pharmacy to Dose Med 05/30/25 09:00 Ordered 1 each IV QDAY mg Hyd/Al Hyd/Josesito Susp [Maalox Susp] Med 05/30/25 00:08 Active 30 ml PO Q4HR PRN Code Status Routine Oth 05/30/25 00:08 Ordered Oxygen Delivery PRN RT 05/30/25 00:08 Active Vital Signs Vital signs: Vital Signs Temperature 102.5 F H 05/29/25 20:14 Pulse Rate 112 H 05/29/25 20:14 Respiratory Rate 24 H 05/29/25 20:14 Blood Pressure 116/68 05/29/25 20:14 Pulse Oximetry (%) 98 05/29/25 20:14 Oxygen Delivery Method Blow-by 05/29/25 20:14 Oxygen Flow Rate 10 05/29/25 20:14 Fraction of Inspired Oxygen 35 05/29/25 20:14 Fever MDM Narrative MDM Narrative:: Scribe Attestation: I, Bhumi Orellana am scribing for and in the presence of Dr. Hutson. Provider Notation: Although this document has been carefully reviewed, there may still be some phonetic and other typographical errors.? These errors are purely grammatical due to imperfections in the software program and should not be construed in any way to? compromise the substance of the patient's medical care during this visit. This section includes all my notes and documentations, including HPI, PE, and ED course. Joaquin Hutson MD HPI: 54 y/o non-verbal male with Hx of TBI, Cardiac Arrhythmia, Asthma, Tracheostomy and Gastrostomy BIB from sub-acute with fever. Tylenol was given at 7 PM, about an hour ago. ROS: All negative except as documented in HPI. Physical Exam: General: Fever noted. Eyes: Conjunctivae and lids clear. PERRL. EOMI. ENT: No nasal congestion. Neck: Supple. Heart: Sinus tachycardia noted. Lungs: No respiratory distress. Decreased air movement with rales. Abdomen: Soft and nontender. Normal bowel sounds. No distension. No rebound or guarding. Skin: Warm and dry. Neuro: Difficult exam because patient can't follow commands. I reviewed sub-acute notes. I reviewed all diagnostic test results: My interpretation of the EKG is: Sinus tachycardia (110 bpm) with nonspecific ST-T changes. My interpretation of the chest x-ray is right-sided infiltrates. Blood tests and urine tests remarkable for WBC 28.9, lactic acid 2.6, CRP 4.4. COVID/influenza/strep/RSV negative. At this point, diagnoses include: Sepsis, Pneumonia. Treatment here included: IVF, Maxipime 2 G, Toradol 30 mg, SoluMedrol 125 mg, Vancomycin 2 G. 2202: I discussed the case with our hospitalist. About the presentation and exam and diagnostics and treatments here. And need of further care in the hospital. Due to persistent hypotension despite IV fluid, recommended Levophed drip and admission to ICU. Levophed drip started. I discussed the case with our ICU service.? About the presentation and exam and diagnostics and treatments here.? And need of further care in the hospital.? Will accept the patient. Joaquin Hutson MD Patient data External records reviewed:: [facility] previous records (Reviewed prior ED records from 12/28/24. Patient was seen for Right middle lobe pneumonia.) and [facility] records Clinical information provided by:: office spec (Nurse) Social determinants that could affect healthcare access:: housing (Sub-Acute) Patient has the following chronic illnesses:: Traumatic Brain Injury, Cardiac Arrhythmia, Edema, Asthma How is presenting disease/condition affected by chronic disease/condition?: uneffected by Evaluation data The following diagnostics were reviewed and interpreted by me:: lab results, radiology exam(s) and EKG tracing(s) (My interpretation of the EKG is: Sinus tachycardia (110 bpm) with nonspecific ST-T changes. Joaquin Hutson MD) Lab and/or radiology exams considered but not ordered:: None Interpretation Summary: I reviewed all diagnostic test results: My interpretation of the EKG is: Sinus tachycardia (110 bpm) with nonspecific ST-T changes. My interpretation of the chest x-ray is right-sided infiltrates. Blood tests and urine tests remarkable for WBC 28.9, lactic acid 2.6, CRP 4.4. COVID/influenza/strep/RSV negative. Medications / Prescriptions Medications or Prescriptions considered but not ordered:: None Medication administrations:: Medication Administration History Acetaminophen (Acetaminophen Supp 650 Mg Supp) 650 mg RI Q4HR PRN PRN Reason: Pain Scale 1-3 or Temp > 100.4 Stop: 06/29/25 00:07 Al Hydrox/Mg Hydrox/Simethicone (Mg Hyd/Al Hyd/Josesito (Maalox Reg) Susp 30 Ml Udc) 30 ml PO Q4HR PRN PRN Reason: Heartburn or Upset Stomach Stop: 06/29/25 00:07 Enoxaparin Sodium (Enoxaparin Sod Inj 40 Mg/0.4 Ml Syringe) 40 mg SC QDAY NADINE Stop: 06/13/25 08:59 Norepinephrine/Dextrose (Levophed In D5w 8mg/250ml) 8 mg in 250 mls @ 6.923 mls/hr IV .Q24H PRN; Protocol PRN Reason: PER PROTOCOL Stop: 06/28/25 22:36 Last Titration: 05/29/25 23:30 Dose: 0.05 mcg/kg/min, 6.923 mls/hr Documented By: Titration: 05/29/25 23:25 Dose: 0.05 mcg/kg/min, 6.923 mls/hr Documented By: Admin: 05/29/25 23:20 Dose: 0.05 mcg/kg/min, 6.923 mls/hr Documented By: DENISE Cefepime HCl 2 gm/ Sodium (Chloride) 50 mls @ 100 mls/hr IV Q8H NADINE Stop: 06/06/25 03:59 Magnesium Hydroxide (Milk Of Magnesia Susp 30 Ml Udc) 30 ml PO QDAY PRN PRN Reason: CONSTIPATION Stop: 06/29/25 00:07 Pharmacy Consult (Vancomycin Pharmacy To Dose 1 Each Each) 1 each IV QDAY [facility] Stop: 06/29/25 08:59 Discontinued Medications Sodium Chloride (Ns) 1,000 mls @ 999 mls/hr IV .Q1H1M ONE Stop: 05/29/25 21:11 Last Infusion: 05/29/25 21:38 Dose: Infused Documented By: Admin: 05/29/25 20:33 Dose: 999 mls/hr Documented By: BD Cefepime HCl 2 gm/ Sodium (Chloride) 50 mls @ 100 mls/hr IV X1 ONE Stop: 05/29/25 20:41 Last Infusion: 05/29/25 21:07 Dose: Infused Documented By: Admin: 05/29/25 20:32 Dose: 100 mls/hr Documented By: BD Sodium Chloride (Ns) 1,000 mls @ 999 mls/hr IV .Q1H1M ONE Stop: 05/29/25 21:12 Last Infusion: 05/29/25 22:53 Dose: Infused Documented By: Admin: 05/29/25 21:52 Dose: 999 mls/hr Documented By: RC Vancomycin HCl 2,000 mg/ (Sodium Chloride) 500 mls @ 150 mls/hr IV X1 ONE Stop: 05/29/25 23:32 Last Admin: 05/29/25 21:52 Dose: 150 mls/hr Documented By: RC Sodium Chloride (Ns) 1,000 mls @ 999 mls/hr IV .Q1H1M ONE Stop: 05/29/25 21:14 Last Infusion: 05/29/25 21:55 Dose: Infused Documented By: Admin: 05/29/25 20:35 Dose: 999 mls/hr Documented By: BD Norepinephrine Bitartrate (Levophed In Ns 16mg/250ml) 16 mg in 250 mls @ 3.462 mls/hr IV .Q24H PRN; Protocol PRN Reason: PER PROTOCOL Stop: 06/28/25 22:24 Ketorolac Tromethamine (Ketorolac Inj 30 Mg/Ml Vial) 30 mg IVP X1 ONE Stop: 05/29/25 20:12 Last Admin: 05/29/25 20:34 Dose: 30 mg Documented By: BD Methylprednisolone Sodium Succinate (Methylprednisolone Sod Succ 62.5 Mg/Ml 2ml Vial) 125 mg IVP X1 ONE Stop: 05/29/25 20:15 Last Admin: 05/29/25 20:34 Dose: 125 mg Documented By: BD IVF, Maxipime 2 G, Toradol 30 mg, SoluMedrol 125 mg, Vancomycin 2 G, Levophed drip. Consultations Consultation(s) initiated? (list below): Yes Consultation #1 (Physician, Specialty, Details): 2201: I discussed the case with our hospitalist. About the presentation and exam and diagnostics and treatments here. And need of further care in the hospital. Due to persistent hypotension despite IV fluid, recommended Levophed drip and admission to ICU. Levophed drip started. I discussed the case with our ICU service.? About the presentation and exam and diagnostics and treatments here.? And need of further care in the hospital.? Will accept the patient. Diagnosis Fever Differential Diagnosis: cellulitis, fever of unknown origin, gastroenteritis, community acquired pneumonia, pyelonephritis, viral infection, sepsis and influenza Most likely diagnosis given after review of the tests above:: Sepsis, Pneumonia Admission Indicated Admission indicated?: indicated Explain why admission is indicated or not indicated:: Sepsis, Pneumonia Admission Request Was there a request for admission?: Yes Admission Attestation Admission request attestation: Discussed case with our ICU service regarding admission. Discussed patients ED course, exam findings, labs, and radiology results. Agreed to accept the patient for admission. Disposition Plan Disposition Plan: Admit Critical Care Time Critical Care Time Critical Care Time: Yes Total Critical Care Time (min.): 36 Attestation: Due to a high probability of clinically significant, life threatening deterioration, the patient required my highest level of preparedness to intervene emergently and I personally spent this critical care time directly and personally managing the patient. This critical care time included obtaining a history; examining the patient; ordering and review of studies; arranging urgent treatment with development of a management plan; evaluation of patient's response to treatment; frequent reassessment; and discussions with family and other providers. It was exclusive of separately billable procedures and treating other patients and teaching time. Joaquin Hutson MD Discharge Plan Plan Patient Disposition: Admit Acute Care w/in Hospital Prescriptions/Referrals Prescriptions/Med Rec: No Action sennosides [Senna Laxative] 8.6 mg Tablet 8.6 mg G-tube BID Label Comments: for constipation acetaminophen 325 mg Tablet 650 mg G-tube Q6HR PRN (Reason: Pain) Label Comments: not to exceed 3 gm of tylenol in 24 hours from all sources polyethylene glycol 3350 17 gram Powder In Packet 17 g G-tube QDAY PRN (Reason: No Bowel Movement) Rx Instructions: Administer as needed if 2nd round bowel protocol ineffective. ondansetron HCl 4 mg Tablet 4 mg G-tube Q6HR PRN (Reason: Nausea Or Vomiting) magnesium hydroxide [Milk of Magnesia] 400 mg/5 mL Suspension 30 ml G-tube PRN PRN (Reason: Constipation) Label Comments: CONC: 400MG/5ML Rx Instructions: Give 2400mg/30ml on the 5th shift if no BM bisacodyl [Dulcolax (bisacodyl)] 10 mg Suppository 10 mg RI PRN PRN (Reason: Constipation) Rx Instructions: Administer as needed on 6th shift, if MOM ineffective. losartan 25 mg Tablet 25 mg G-tube QDAY Label Comments: for HTN Rx Instructions: hold if SBP <110 Fleet Enema 19-7 gram/118 mL Enema 133 ml RI PRN PRN (Reason: Constipation) Label Comments: If Dulcolax is ineffective on 3rd day/7th shift give Fleets enema per Bowel Management Protocol. Notify MD if no results from enema. Ear Wax Removal Drops 6.5 % Drops 5 drp otic (ear) Q61D Label Comments: 5 drops per ear at first med pass of shift. Then irrigate ears with NS at next med pass of each shift x 4 days for wax build up. *Start on the of the month, every two months. Ear Wax Removal Drops 6.5 % Drops 5 drp otic (ear) Q61D Label Comments: 5 drops per ear at first med pass of shift. Then irrigate ears with NS at next med pass of each shift x 4 days for wax build up. *Start on the of the month, every two months. Ear Wax Removal Drops 6.5 % Drops 5 drp otic (ear) Q61D Label Comments: 5 drops per ear at first med pass of shift. Then irrigate ears with NS at next med pass of each shift x 4 days for wax build up. *Start on the of the month, every two months. Ear Wax Removal Drops 6.5 % Drops 5 drp otic (ear) Q61D Label Comments: 5 drops per ear at first med pass of shift. Then irrigate ears with NS at next med pass of each shift x 4 days for wax build up. *Start on the of the month, every two months. Ear Wax Removal Drops 6.5 % Drops 5 drp otic (ear) Q61D Rx Instructions: 5 drops per ear at first med pass of shift. Then irrigate ears with NS at next med pass of each shift x 4 days for wax build up. *Start on the of the month, every two months. Ear Wax Removal Drops 6.5 % Drops 5 drp otic (ear) Q61D Label Comments: 5 drops per ear at first med pass of shift. Then irrigate ears with NS at next med pass of each shift x 4 days for wax build up. *Start on the of the month, every two months. Ear Wax Removal Drops 6.5 % Drops 5 drp otic (ear) Q61D Rx Instructions: 5 drops per ear at first med pass of shift. Then irrigate ears with NS at next med pass of each shift x 4 days for wax build up. *Start on the of the month, every two months. Ear Wax Removal Drops 6.5 % Drops 5 drp otic (ear) Q61D Rx Instructions: 5 drops per ear at first med pass of shift. Then irrigate ears with NS at next med pass of each shift x 4 days for wax build up. *Start on the of the month, every two months. alum-mag hydroxide-simeth [Ivanna-Lanta] 200-200-20 mg/5 mL Suspension 30 ml PO QID PRN (Reason: Upset Stomach/Indigestion) propranolol 20 mg Tablet 20 mg G-tube TID Label Comments: for HTN (BBW) Rx Instructions: hold if SBP <100 or HR <60 midodrine 10 mg Tablet 10 mg G-tube Q8HR Label Comments: for hypotension Rx Instructions: hold if SBP >110 artificial tear([id number]) [GenTeal Tears Moderate] 0.1-0.3-0.2 % Drops 2 drp Both eyes BID Label Comments: FOR DRYNESS Atrovent HFA 17 mcg/actuation Hfa Aerosol Inhaler 2 puff INH Q4HRRT PRN (Reason: SOB, wheezing) dexlansoprazole [Dexilant] 30 mg Capsule,Biphase Delayed Releas 30 mg G-tube QDAY Label Comments: for GERD [place] 3-6-9 1,200 mg Capsule 1,200 mg G-tube QDAY Label Comments: for supplement bbnxolja-cgu-asnc fum-folic ac 7.5 mg iron-400 mcg Tablet 1 ea G-tube QDAY Label Comments: for supplement acetaminophen 325 mg tablet 325 mg G-tube Q4HR PRN (Reason: Fever>100.0) 7 Days 0RF Label Comments: Not to exceed 3 grams of Tylenol in 24 hours from all sources Rx Instructions: Give two tabs of 325mg to equal 650mg Referrals: No Primary/Family,Physician [Primary Care Provider] - In 1 week Problem List Clinical Impression: Sepsis, Pneumonia Patient/Caregiver Discharge Instructions Print Language: Thai Stand Alone Forms: Caitlin Award Info., Patient Portal Info Letter
[2025-05-29 20:14] VITALS: BP 116/68; PULSE 112; RESP 24; TEMP 39.2; O2SAT 98
--- NOTE | 2025-05-29 20:15 | XR_ITS ---
Examination: AP chest single view TECHNIQUE: AP portable semiupright chest single view Date and time: May 29, 2025, 2024 hours INDICATIONS: Fever today. FINDINGS: Early pneumonia right base. Normal heart size. Tracheostomy tube tip 5.8 cm above Isela. Mild vascular congestion. IMPRESSION: Right base pneumonia
[2025-05-29 20:30] VITALS: BMI 24.3
[2025-05-29 20:31] LABS: Base Excess 1 (-3-3); HCO3 25 mEq/L (20-26); Inspired O2, VO2 Liters 12 L/min; Inspired Oxygen, FIO2 21 %; O2 Saturation 98 % (91-98); PCO2 37 mmHg (32.0-48.0); PO2 86 mmHg (83-108); pH, Arterial 7.44 (7.35-7.45)
[2025-05-29] MEDS: CEFEPIME INJ 2 GM in SODIUM CHLORIDE 0.9% (Popper) 50 ML IV (20:32)
[2025-05-29] MEDS: SODIUM CHLORIDE 0.9% 1000 ML 1,000 ML 999 ML IV ×3 (20:33→21:52)
[2025-05-29 20:34] VITALS: TEMP 39.2
[2025-05-29] MEDS: KETOROLAC INJ 30 MG/ML VIAL IVP (20:34)
[2025-05-29] MEDS: MethylPREDNISolone SOD SUCC 62.5 MG/ML 2ML VIAL 125 MG IVP (20:34)
[2025-05-29 20:38] LABS: Allen Test Performed/OK; Puncture Site Right Radial
[2025-05-29 20:42] LABS: Strep A Rapid Negative (Negative)
[2025-05-29 20:48] LABS: Respiratory Syncytial Virus Ag Negative (Negative)
[2025-05-29 21:08] LABS: Collection Type, Urine Clean Catch; Squamous Epithelial Cell,Urine 0 /hpf (0-5)
[2025-05-29 21:09] LABS: Lactate (Lactic Acid) 2.6 mMol/L (0.4-2.0)
[2025-05-29 21:18] LABS: Basophils # (Auto) 0.1 Thou/mm3 (0.0-0.2); Basophils % (Auto) 0 % (0-2.5); Eosinophils # (Auto) 0.0 Thou/mm3 (0.0-0.5); Eosinophils % (Auto) 0 % (0-10); Hematocrit 43.8 % (41.0-53.0); Hemoglobin 15.2 g/dL (13.5-16.0); Immature Granulocytes Auto 0.20 Thou/mm3 (0.00-0.00); Lymphocytes # (Auto) 0.7 Thou/mm3 (1.0-4.8); Lymphocytes % (Auto) 2 % (10-50); Mean Corpuscular HGB Conc 34.7 g/dl (31.0-37.0); Mean Corpuscular Hemoglobin 32.5 pg (25.0-35.0); Mean Corpuscular Volume 94 fL (80-100); Monocytes # (Auto) 1.0 Thou/mm3 (0.0-0.8); Monocytes % (Auto) 4 % (0-12); Neutrophils # (Auto) 27.0 Thou/mm3 (1.8-7.7); Neutrophils % (Auto) 93 % (37-80); Nucleated Red Blood Cell # 0.00 Thou/mm3 (0.00-0.00); Nucleated Red Blood Cell % 0 /100 WBC (0); Platelet Count 234 Thou/mm3 (140-440); RDW Standard Deviation 42.2 fL (35.1-43.9); Red Blood Count 4.68 Miln/mm3 (4.50-5.90); White Blood Count 28.9 Thou/mm3 (3.8-10.6)
[2025-05-29 21:23] LABS: Amorphous Crystals,Urine Present (Absent); Bilirubin,Urine Negative (Negative); Blood,Urine 3+ (Negative); Clarity,Urine Clear (Clear/Hazy); Color,Urine Lt-Yellow (Lt Yel-Yel); Culture Indicated,Urine Not Indicated; Glucose, Urine Negative (Negative); Ketones,Urine Negative (Negative); Leukocyte Esterase,Urine Positive (Negative); Nitrite,Urine Negative (Negative); PH,Urine 6.5 (5.0-7.0); Protein,Urine Negative (Neg - Trace); RBC,Urine 6 /hpf (0-3); Specific Gravity,Urine 1.008 (1.001-1.035); Urobilinogen,Urine Negative mg/dL (0.0-1.0); WBC,Urine 5 /hpf (0-5)
[2025-05-29 21:29] LABS: Sed Rate (ESR) 20 mm/hr (0-20)
[2025-05-29 21:37] LABS: Alanine Aminotransferase 26 U/L (10-49); Albumin, Serum 4.2 gm/dL (3.5-5.0); Albumin/Globulin Ratio 1.5 (1.2-2.2); Alkaline Phosphatase 117 U/L (46-116); Anion Gap 10 (7-16); Aspartate Amino Transferase 27 U/L (0-34); BUN/Creatinine Ratio 18 Ratio (12-20); Bilirubin,Direct 0.3 mg/dL (0.0-0.3); Bilirubin,Total 0.9 mg/dL (0.3-1.2); Blood Urea Nitrogen 11 mg/dL (9-23); Calcium 9.6 mg/dL (8.3-10.6); Calcium (Corrected) 9.6 mg/dL (8.5-10.1); Carbon Dioxide 24.5 mMol/L (20.0-31.0); Chloride 100 mMol/L (98-107); Creatinine (Component) 0.6 mg/dL (0.6-1.3); Estimated Creatinine Clearance 136.2 mL/min (>60); Globulin 2.8 gm/dL (2.3-3.5); Glucose 148 mg/dL (74-106); Magnesium 1.6 mg/dL (1.6-2.6); Osmolality,Calculated 270 (275-295); Potassium 3.8 mMol/L (3.4-5.1); Sodium 134 mMol/L (136-145); Total Protein 7.0 gm/dL (5.7-8.2); eGFR > 60 See Note
[2025-05-29] MEDS: Vancomycin Inj 2,000 MG in SODIUM CHLORIDE 0.9% 500 ML 500 ML 150 MG IV (21:52)
[2025-05-29 22:49] VITALS: TEMP 38.1
[2025-05-29 22:50] VITALS: BP 89/50; PULSE 89; RESP 22; TEMP 38.1; O2SAT 99
[2025-05-29 23:06] LABS: Procalcitonin 0.20 ng/ml (0.0-0.49)
[2025-05-29 23:20] VITALS: BP 89/53; PULSE 77
[2025-05-29] MEDS: Norepinephrine/D5W 8mg/250ml 8 MG/250 ML BAG 6.923 MG IV (23:20)
[2025-05-29 23:29] VITALS: BP 95/57; PULSE 58; RESP 22; O2SAT 97
[2025-05-29 23:57] LABS: C-Reactive Protein 4.4 mg/dL (0.0-0.9)
[2025-05-30] VITALS (44 sets, daily range): BP systolic 78–142; BP diastolic 49–85; PULSE 60–128; RESP 9–34; TEMP 36.1–37.7; O2SAT 91–100; BMI 21.9
[2025-05-30 00:03] LABS: Reflex Lactate? Y
--- NOTE | 2025-05-30 00:19 | ESCONSULT_ITS ---
<Statement entered by Jose Angel Cruz MD - 05/31/25 09:46> I have discussed and was present for the essential components of the history, physical examination, diagnosis, and treatment plan with the resident. I agree with the patient's care as documented by the resident and amended herein by me. Jose Angel Cruz MD FACP. HPI Data of Consult Primary Care Provider: Physician No Primary/Family Consult Narrative History of present illness: The patient is a 54-year-old male with significant past medical history of chronic vegetative state s/p traumatic and anoxic brain injury s/p trach and PEG, hypertension who is a resident of subacute rehab was brought into ED on 05/29/2025 with chief complaint of fever and tachycardia. The patient was apparently well, and developed fever and tachycardia, and was brought for further evaluation of underlying cause. The patient is nonverbal at baseline, and unable to provide any information. The history was obtained from chart review. Initially during presentation, his vitals were BP 116/18, pulse 112, RR 24, temperature 102.5, and was saturating on blow-by on FiO2 35%. During my evaluation, his blood pressure was 95/57 on Levophed drip, pulse 58, RR 22, temperature 100.5, saturating 97% on blow-by, on 35% FiO2. Labs revealed white count 28.9, ABG WNL, chemistry panel revealed sodium 134, BUN 11, creatinine 0.6, blood sugar 148, lactic acid 2.6, magnesium 1.6, CRP 4.4, Pro-Kj 0.20, UA revealed 3+ blood, positive for leukocyte esterase, RBC 6, WBC 5 and no bacteria. Rapid RSV, group A strep, bedside influenza negative. Chest x-ray revealed right lower lobe pneumonia. PMH: As mentioned above SHX: Unobtainable Social history: Unobtainable Family history: Unremarkable Medications: To be reconciled Allergies: No known allergies The patient was admitted to ICU for further management of septic shock secondary to right lower lobe healthcare associated pneumonia. cc:: cc: Review of Systems Review of Systems ROS Unobtainable: unobtainable due to medical condition Exam Vital Signs Temp Pulse Resp BP Pulse Ox O2 Del Method O2 Flow Rate 100.5 F H 58 L 22 H 95/57 L 97 Blow-by 10 05/29/25 22:50 05/29/25 23:29 05/29/25 23:29 05/29/25 23:29 05/29/25 23:29 05/29/25 23:29 05/29/25 23:29 FiO2 35 05/29/25 23:29 Narrative Exam General: No acute distress, alert and oriented to himself only, occasional spontaneous eye opening HEENT: Moist mucous membranes, oropharynx clear Neck: Supple, No masses, No JVD CVS: S1S2 Regular rate and rhythm, No murmurs, rubs or gallops Lungs: Coarse rhonchi throughout the lung field, equal bilateral air entry, no crackles or wheeze appreciated Abd: Soft, NT/ND, +BS, no organomegaly Ext: No edema, warm and well perfused, upper and lower limb contractures Skin: No rash Psych: Unobtainable Results Labs 05/29/25 20:25 05/30/25 04:36 Labs: Short CBC 05/29/25 Range/Units 20:25 WBC 28.9 H (3.8-10.6) Thou/mm3 Hgb 15.2 (13.5-16.0) g/dL Hct 43.8 (41.0-53.0) % Plt Count 234 (140-440) Thou/mm3 BMP 05/29/25 20:25 Sodium 134 L Potassium 3.8 Chloride 100 Carbon Dioxide 24.5 BUN 11 Creatinine 0.6 Glucose 148 H Calcium 9.6 Liver Function 05/29/25 Range/Units 20:25 Total Bilirubin 0.9 (0.3-1.2) mg/dL Direct Bilirubin 0.3 (0.0-0.3) mg/dL AST 27 (0-34) U/L ALT 26 (10-49) U/L Alkaline Phosphatase 117 H (46-116) U/L Albumin 4.2 (3.5-5.0) gm/dL Urine 05/29/25 Range/Units 20:42 Urine Color Lt-Yellow (Lt Yel-Yel) Urine Clarity Clear (Clear/Hazy) Urine pH 6.5 (5.0-7.0) Ur Specific [place] 1.008 (1.001-1.035) Urine Protein Negative (Neg - Trace) Urine Glucose (UA) Negative (Negative) ABG Interpretation ABG results: 05/29/25 20:24 ABG pH 7.44 ABG pCO2 37 ABG pO2 86 ABG HCO3 25 ABG O2 Saturation 98 ABG Base Excess 1 Quality Measures Quality Measures none Medications Home Medications and Allergies Home Medications ?Medication ?Instructions ?Recorded ?Confirmed ?Type acetaminophen 325 mg tablet 650 mg G-tube Q6HR PRN Aylin n 02/22/25 05/30/25 History aluminum-mag hydroxide-simethicone 30 ml PO QID PRN Up set 02/22/25 05/30/25 History 200 mg-200 mg-20 mg/5 mL oral susp Stomach/Indigestion (Ivanna-Lanta) artificial 2 drp Both eyes BID 02/22/25 05/30/25 History tears(cuhkyix-vvyuzkcg-vjzhgwc) 0.1 %-0.3 %-0.2 % eye drops (GenTeal Tears Moderate) bisacodyl 10 mg rectal suppository 10 mg [place] PRN PRN Co nstipation 02/22/25 05/30/25 History (Dulcolax (bisacodyl)) carbamide peroxide 6.5 % ear drops 5 drp otic (ear) Q6 1D 02/22/25 05/30/25 History (Ear Wax Removal Drops) carbamide peroxide 6.5 % ear drops 5 drp otic (ear) Q6 1D 02/22/25 05/30/25 History (Ear Wax Removal Drops) carbamide peroxide 6.5 % ear drops 5 drp otic (ear) Q6 1D 02/22/25 05/30/25 History (Ear Wax Removal Drops) carbamide peroxide 6.5 % ear drops 5 drp otic (ear) Q6 1D 02/22/25 05/30/25 History (Ear Wax Removal Drops) carbamide peroxide 6.5 % ear drops 5 drp otic (ear) Q6 1D 02/22/25 05/30/25 History (Ear Wax Removal Drops) carbamide peroxide 6.5 % ear drops 5 drp otic (ear) Q6 1D 02/22/25 05/30/25 History (Ear Wax Removal Drops) carbamide peroxide 6.5 % ear drops 5 drp otic (ear) Q6 1D 02/22/25 05/30/25 History (Ear Wax Removal Drops) carbamide peroxide 6.5 % ear drops 5 drp otic (ear) Q6 1D 02/22/25 05/30/25 History (Ear Wax Removal Drops) dexlansoprazole 30 mg 30 mg G-tube QDAY 02/22/25 0 05/30/25 History capsule,biphase delayed release (Dexilant) fish, borage, flaxseed oils-omega 1,200 mg G-tube QDAY 02/22/25 05/30/25 History 3,6,9 comb no.1 1,200 mg capsule ([place] 3-6-9) ipratropium bromide 17 2 puff INH Q4HRRT PRN SOB, w heezing 02/22/25 05/30/25 History mcg/actuation HFA aerosol inhaler (Atrovent HFA) losartan 25 mg tablet 25 mg G-tube QDAY 02/22/25 0 05/30/25 History magnesium hydroxide 400 mg/5 mL 30 ml G-tube PRN PRN C onstipation 02/22/25 05/30/25 History oral suspension (Milk of Magnesia) midodrine 10 mg tablet 10 mg G-tube Q8HR 02/22/25 0 05/30/25 History qaokpkddbukm-xhitqmfx-ewrj 1 ea G-tube QDAY 02/22/25 0 05/30/25 History fumarate 7.5 mg-folic acid 400 mcg tablet ondansetron HCl 4 mg tablet 4 mg G-tube Q6HR PRN Nause a Or 02/22/25 05/30/25 History Vomiting polyethylene glycol 3350 17 gram 17 g G-tube QDAY PRN No Bowel 02/22/25 05/30/25 History oral powder packet Movement propranolol 20 mg tablet 20 mg G-tube TID 02/22/25 History sennosides 8.6 mg tablet (Senna 8.6 mg G-tube BID 02/1105/30/25 History Laxative) sodium phosphates 19 gram-7 133 ml [place] PRN PRN Constipa tion 02/22/25 05/30/25 History gram/118 mL enema (Fleet Enema) Allergies Allergy/AdvReac Type Severity Reaction Status Date / Time No Known Allergies Allergy Verified 09/08/19 16:09 Visit Medications Acetaminophen (Acetaminophen Supp 650 Mg Supp) 650 mg AZ Q4HR PRN PRN Reason: Pain Scale 1-3 or Temp > 100.4 Stop: 06/29/25 00:07 Al Hydrox/Mg Hydrox/Simethicone (Mg Hyd/Al Hyd/Josesito (Maalox Reg) Susp 30 Ml Udc) 30 ml PO Q4HR PRN PRN Reason: Heartburn or Upset Stomach Stop: 06/29/25 00:07 Enoxaparin Sodium (Enoxaparin Sod Inj 40 Mg/0.4 Ml Syringe) 40 mg SC QDAY [facility] Stop: 06/13/25 08:59 Norepinephrine/Dextrose (Levophed In D5w 8mg/250ml) 8 mg in 250 mls @ 6.923 mls/hr IV .Q24H PRN; Protocol PRN Reason: PER PROTOCOL Stop: 06/28/25 22:36 Last Titration: 05/29/25 23:30 Dose: 0.05 mcg/kg/min, 6.923 mls/hr Cefepime HCl 2 gm/ Sodium (Chloride) 50 mls @ 100 mls/hr IV Q8H [facility] Stop: 06/06/25 03:59 Magnesium Hydroxide (Milk Of Magnesia Susp 30 Ml Udc) 30 ml PO QDAY PRN PRN Reason: CONSTIPATION Stop: 06/29/25 00:07 Pharmacy Consult (Vancomycin Pharmacy To Dose 1 Each Each) 1 each IV QDAY [facility] Stop: 06/29/25 08:59 Discontinued Medications Sodium Chloride (Ns) 1,000 mls @ 999 mls/hr IV .Q1H1M ONE Stop: 05/29/25 21:11 Last Infusion: 05/29/25 21:38 Dose: Infused Cefepime HCl 2 gm/ Sodium (Chloride) 50 mls @ 100 mls/hr IV X1 ONE Stop: 05/29/25 20:41 Last Infusion: 05/29/25 21:07 Dose: Infused Sodium Chloride (Ns) 1,000 mls @ 999 mls/hr IV .Q1H1M ONE Stop: 05/29/25 21:12 Last Infusion: 05/29/25 22:53 Dose: Infused Vancomycin HCl 2,000 mg/ (Sodium Chloride) 500 mls @ 150 mls/hr IV X1 ONE Stop: 05/29/25 23:32 Last Admin: 05/29/25 21:52 Dose: 150 mls/hr Sodium Chloride (Ns) 1,000 mls @ 999 mls/hr IV .Q1H1M ONE Stop: 05/29/25 21:14 Last Infusion: 05/29/25 21:55 Dose: Infused Norepinephrine Bitartrate (Levophed In Ns 16mg/250ml) 16 mg in 250 mls @ 3.462 mls/hr IV .Q24H PRN; Protocol PRN Reason: PER PROTOCOL Stop: 06/28/25 22:24 Ketorolac Tromethamine (Ketorolac Inj 30 Mg/Ml Vial) 30 mg IVP X1 ONE Stop: 05/29/25 20:12 Last Admin: 05/29/25 20:34 Dose: 30 mg Methylprednisolone Sodium Succinate (Methylprednisolone Sod Succ 62.5 Mg/Ml 2ml Vial) 125 mg IVP X1 ONE Stop: 05/29/25 20:15 Last Admin: 05/29/25 20:34 Dose: 125 mg Assessment & Plan Plan The patient is a 54-year-old male with significant past medical history of chronic vegetative state s/p traumatic and anoxic brain injury s/p trach and PEG, hypertension who is a resident of subacute rehab was brought into ED on 05/29/2025 with chief complaint of fever and tachycardia. The patient was admitted to ICU for further management of septic shock secondary to right lower lobe healthcare associated pneumonia. Neuro: #Chronic encephalopathy 2/2 #Chronic vegetative state s/p traumatic and anoxic brain injury - On tracheostomy tube - No acute issues - Continue to monitor closely CVS: #Septic shock 2/2 right lower lobe healthcare associated pneumonia Patient received 3 L of bolus fluid in the ED - Currently on Levophed drip - Antibiotics as per ID #History of hypertension - Currently patient on shock - Hold any home antihypertensive for now Pulmonology: #Healthcare associated pneumonia Patient presented with fever of 102.5, and chest x-ray was significant for right lower lobe pneumonia, and patient is a resident of subacute rehab - Antibiotics as per ID - DuoNeb every 6 hour scheduled #Chronic respiratory failure 2/2 #S/p traumatic and anoxic brain injury #Chronic tracheostomy tube - Continue with blow-by GI: #Chronic PEG tube - May start PEG tube feeding Renal: No acute issue Endocrinology: - No active issue Hematology: #Leukocytosis Likely secondary to sepsis Presented with white count of 28 - Antibiotics as per ID - Daily a.m. labs for CBC ID: #Septic shock 2/2 #Healthcare associated right lower lobe pneumonia - Started on vancomycin and cefepime 05/29- - Blood culture, urine culture and sputum culture pending MSK: #Chronic upper and lower limb contractures Likely secondary to chronic vegetative state Psych: - Unobtainable Health maintenance: Dispo: Patient admitted to ICU for further management of septic shock secondary to healthcare associated right lower lung pneumonia DVT prophylaxis: Subcu Lovenox Diet: N.p.o. Lines: Peripheral lines CODE STATUS: DNR The patient's management plan was discussed with my attending physician MD Naeem Hernandez MD, PGY3
[2025-05-30 00:57] LABS: Lactic Acid, 3 HR 1.6 mMol/L (0.4-2.0)
[2025-05-30] MEDS: CEFEPIME INJ 2 GM in SODIUM CHLORIDE 0.9% (Popper) 50 ML IV ×3 (05:08→21:26)
[2025-05-30 05:52] LABS: Alanine Aminotransferase 19 U/L (10-49); Albumin, Serum 3.5 gm/dL (3.5-5.0); Albumin/Globulin Ratio 1.4 (1.2-2.2); Alkaline Phosphatase 91 U/L (46-116); Anion Gap 10 (7-16); Aspartate Amino Transferase 18 U/L (0-34); BUN/Creatinine Ratio 15 Ratio (12-20); Bilirubin,Total 0.7 mg/dL (0.3-1.2); Blood Urea Nitrogen 9 mg/dL (9-23); Calcium 9.3 mg/dL (8.3-10.6); Calcium (Corrected) 9.7 mg/dL (8.5-10.1); Carbon Dioxide 24.2 mMol/L (20.0-31.0); Chloride 109 mMol/L (98-107); Creatinine (Component) 0.6 mg/dL (0.6-1.3); Estimated Creatinine Clearance 136.2 mL/min (>60); Globulin 2.5 gm/dL (2.3-3.5); Glucose 183 mg/dL (74-106); Magnesium 1.3 mg/dL (1.6-2.6); Osmolality,Calculated 288 (275-295); Phosphorous 2.0 mg/dL (2.4-5.1); Potassium 4.2 mMol/L (3.4-5.1); Sodium 143 mMol/L (136-145); Total Protein 6.0 gm/dL (5.7-8.2); eGFR > 60 See Note
[2025-05-30] MEDS: ALBUTEROL/IPRATROPIUM (Duoneb) RT SOL 3 ML NEBU INH ×5 (06:13→22:11)
[2025-05-30] MEDS: Magnesium Sulfate 4 GM Ivpb 4 GM/50 ML BAG IV (08:37)
[2025-05-30] MEDS: MIDODRINE 5 MG TABLET 10 MG GT ×2 (08:37→13:56)
[2025-05-30] MEDS: NAPH,KPH MBDB 1 PACKET (1.5 GM) GT (08:37)
[2025-05-30] MEDS: ENOXAPARIN SOD INJ 40 MG/0.4 ML SYRINGE SC (08:37)
[2025-05-30 09:36] LABS: Basophils # (Auto) 0.0 Thou/mm3 (0.0-0.2); Basophils % (Auto) 0 % (0-2.5); Eosinophils # (Auto) 0.0 Thou/mm3 (0.0-0.5); Eosinophils % (Auto) 0 % (0-10); Hematocrit 37.5 % (41.0-53.0); Hemoglobin 12.8 g/dL (13.5-16.0); Immature Granulocytes Auto 0.13 Thou/mm3 (0.00-0.00); Lymphocytes # (Auto) 0.7 Thou/mm3 (1.0-4.8); Lymphocytes % (Auto) 2 % (10-50); Mean Corpuscular HGB Conc 34.1 g/dl (31.0-37.0); Mean Corpuscular Hemoglobin 32.7 pg (25.0-35.0); Mean Corpuscular Volume 96 fL (80-100); Monocytes # (Auto) 0.3 Thou/mm3 (0.0-0.8); Monocytes % (Auto) 1 % (0-12); Neutrophils # (Auto) 26.2 Thou/mm3 (1.8-7.7); Neutrophils % (Auto) 96 % (37-80); Nucleated Red Blood Cell # 0.00 Thou/mm3 (0.00-0.00); Nucleated Red Blood Cell % 0 /100 WBC (0); Platelet Count 203 Thou/mm3 (140-440); RDW Standard Deviation 43.3 fL (35.1-43.9); Red Blood Count 3.91 Miln/mm3 (4.50-5.90); White Blood Count 27.3 Thou/mm3 (3.8-10.6)
[2025-05-30] MEDS: RINGERS LACTATED 1000 ML 1,000 ML 999 ML IV (10:32)
--- NOTE | 2025-05-30 11:11 | PD.RESPRO ---
Documentation for date of: 05/30/25 Subjective Subjective Interval history: HPI: 54-year-old male with a significant medical history, including a chronic vegetative state following a traumatic and anoxic brain injury. He has a tracheostomy and a PEG tube for long-term care. He also has a history of hypertension. The patient was transferred from a subacute rehabilitation facility on 05/29/2025 due to a new onset of fever and tachycardia. According to the chart, his condition had been stable until these symptoms began. Due to his baseline nonverbal state, a history could not be obtained from the patient. The patient was admitted to ICU for further management of septic shock secondary to right lower lobe healthcare associated pneumonia. Interval History: 05/30/2025 Patient required pressor support for a short while and was stopped this morning at 5 AM. MAP goal for the patient >60. Patient no longer in septic shock. Patient's home midodrine dosing has been resumed. Magnesium and phosphorus were repleted. Patient stable enough to be downgraded to the medical floor for management of healthcare associated pneumonia. Exam Vital Signs Temp Pulse Resp BP Pulse Ox O2 Del Method O2 Flow Rate 97.0 F 60 22 H 84/55 L 98 Blow-by 10 05/30/25 08:00 05/30/25 10:00 05/30/25 10:00 05/30/25 10:00 05/30/25 10:00 05/30/25 10:00 05/30/25 10:00 FiO2 40 05/30/25 10:00 Narrative Exam General: The patient is in no acute distress. Occasionally spontaneous eye opening. HEENT: Mucous membranes are moist, and the oropharynx is clear. Neck: The neck is supple with no masses or jugular venous distention. CVS: The patient has a regular rate and rhythm with normal S1 and S2 heart sounds. No murmurs, rubs, or gallops are appreciated. RESP: There are coarse rhonchi throughout both lung smith. Air entry is equal bilaterally with no crackles or wheezes. Abd: The abdomen is soft, non-tender, and non-distended with positive bowel sounds. No organomegaly is noted. Ext: Extremities are warm and well-perfused with no edema. The patient has contractures in the upper and lower limbs. Skin: No rash is present. Psych: A mental status exam is unobtainable. Objective Labs 05/30/25 08:21 05/30/25 04:36 Labs: Laboratory Results - last 24 hr 05/29/25 05/29/25 05/29/25 20:22 20:24 20:25 WBC 28.9 H RBC 4.68 Hgb 15.2 Hct 43.8 MCV 94 MCH 32.5 MCHC 34.7 RDW Std Deviation 42.2 Plt Count 234 Neut % (Auto) 93 H Lymph % (Auto) 2 L [place] % (Auto) 4 Eos % (Auto) 0 Baso % (Auto) 0 Neut # (Auto) 27.0 H Lymph # (Auto) 0.7 L [place] # (Auto) 1.0 H Eos # (Auto) 0.0 Baso # (Auto) 0.1 Immature Gran # (Auto) 0.20 H Absolute Nucleated RBC 0.00 Immature Gran % 1 H Nucleated RBC % 0 ESR 20 Puncture Site Right Radial ABG pH 7.44 ABG pCO2 37 ABG pO2 86 ABG HCO3 25 ABG O2 Saturation 98 ABG Base Excess 1 Oxygen Liter Flow 12 FiO2 21 Sodium 134 L Potassium 3.8 Chloride 100 Carbon Dioxide 24.5 Anion Gap 10 BUN 11 Creatinine 0.6 Estim Creat Clear Calc 136.2 eGFR > 60 BUN/Creatinine Ratio 18 Glucose 148 H Calculated Osmolality 270 L Lactic Acid 2.6 H Calcium 9.6 Corrected Calcium 9.6 Phosphorus Magnesium 1.6 Total Bilirubin 0.9 Direct Bilirubin 0.3 AST 27 ALT 26 Alkaline Phosphatase 117 H C-Reactive Prot, Quant 4.4 H Total Protein 7.0 Albumin 4.2 Globulin 2.8 Albumin/Globulin Ratio 1.5 Procalcitonin 0.20 Ur Collection Type Urine Color Urine Clarity Urine pH Ur Specific [place] Urine Protein Urine Glucose (UA) Urine Ketones Urine Blood Urine Nitrite Urine Bilirubin Urine Urobilinogen (Auto) Ur Leukocyte Esterase Urine RBC Urine WBC Ur Squamous Epith Cells Amorphous Crystals Urine Bacteria Ur Culture Indicated? RSV Rapid Negative Group A Strep Rapid Negative 05/29/25 05/30/25 05/30/25 20:42 00:40 04:36 WBC RBC Hgb Hct MCV MCH MCHC RDW Std Deviation Plt Count Neut % (Auto) Lymph % (Auto) [place] % (Auto) Eos % (Auto) Baso % (Auto) Neut # (Auto) Lymph # (Auto) [place] # (Auto) Eos # (Auto) Baso # (Auto) Immature Gran # (Auto) Absolute Nucleated RBC Immature Gran % Nucleated RBC % ESR Puncture Site ABG pH ABG pCO2 ABG pO2 ABG HCO3 ABG O2 Saturation ABG Base Excess Oxygen Liter Flow FiO2 Sodium 143 Potassium 4.2 Chloride 109 H Carbon Dioxide 24.2 Anion Gap 10 BUN 9 Creatinine 0.6 Estim Creat Clear Calc 136.2 eGFR > 60 BUN/Creatinine Ratio 15 Glucose 183 H Calculated Osmolality 288 Lactic Acid 1.6 Calcium 9.3 Corrected Calcium 9.7 Phosphorus 2.0 L Magnesium 1.3 L Total Bilirubin 0.7 Direct Bilirubin AST 18 ALT 19 Alkaline Phosphatase 91 D C-Reactive Prot, Quant Total Protein 6.0 Albumin 3.5 D Globulin 2.5 Albumin/Globulin Ratio 1.4 Procalcitonin Ur Collection Type Clean Catch Urine Color Lt-Yellow Urine Clarity Clear Urine pH 6.5 Ur Specific [place] 1.008 Urine Protein Negative Urine Glucose (UA) Negative Urine Ketones Negative Urine Blood 3+ A Urine Nitrite Negative Urine Bilirubin Negative Urine Urobilinogen (Auto) Negative Ur Leukocyte Esterase Positive Urine RBC 6 H Urine WBC 5 Ur Squamous Epith Cells 0 Amorphous Crystals Present A Urine Bacteria None Ur Culture Indicated? Not Indicated RSV Rapid Group A Strep Rapid 05/30/25 08:21 WBC 27.3 H RBC 3.91 L Hgb 12.8 L D Hct 37.5 L MCV 96 MCH 32.7 MCHC 34.1 RDW Std Deviation 43.3 Plt Count 203 D Neut % (Auto) 96 H Lymph % (Auto) 2 L [place] % (Auto) 1 Eos % (Auto) 0 Baso % (Auto) 0 Neut # (Auto) 26.2 H Lymph # (Auto) 0.7 L [place] # (Auto) 0.3 Eos # (Auto) 0.0 Baso # (Auto) 0.0 Immature Gran # (Auto) 0.13 H Absolute Nucleated RBC 0.00 Immature Gran % 1 H Nucleated RBC % 0 ESR Puncture Site ABG pH ABG pCO2 ABG pO2 ABG HCO3 ABG O2 Saturation ABG Base Excess Oxygen Liter Flow FiO2 Sodium Potassium Chloride Carbon Dioxide Anion Gap BUN Creatinine Estim Creat Clear Calc eGFR BUN/Creatinine Ratio Glucose Calculated Osmolality Lactic Acid Calcium Corrected Calcium Phosphorus Magnesium Total Bilirubin Direct Bilirubin AST ALT Alkaline Phosphatase C-Reactive Prot, Quant Total Protein Albumin Globulin Albumin/Globulin Ratio Procalcitonin Ur Collection Type Urine Color Urine Clarity Urine pH Ur Specific [place] Urine Protein Urine Glucose (UA) Urine Ketones Urine Blood Urine Nitrite Urine Bilirubin Urine Urobilinogen (Auto) Ur Leukocyte Esterase Urine RBC Urine WBC Ur Squamous Epith Cells Amorphous Crystals Urine Bacteria Ur Culture Indicated? RSV Rapid Group A Strep Rapid ABG Interpretation ABG results: 05/29/25 20:24 ABG pH 7.44 ABG pCO2 37 ABG pO2 86 ABG HCO3 25 ABG O2 Saturation 98 ABG Base Excess 1 Quality Measures Quality Measures none Assessment & Plan Assessment Current Active Medications: Generic Name Dose Route Start Last Admin Trade Name Freq PRN Reason Stop Dose Admin Acetaminophen 650 mg 05/30/25 11:09 Acetaminophen 325 Mg Tablet PO 06/29/25 11:08 Q6HR PRN Pain 1-3 Acetaminophen 325 mg 05/30/25 11:09 Acetaminophen 325 Mg Tablet PO 06/29/25 11:08 Q4HR PRN Fever>100.4 Albuterol/Ipratropium 3 ml 05/30/25 01:00 05/30/25 06:13 Albuterol/Ipratropium (Duoneb) Rt Johanne 3 Ml Nebu INH 06/29/25 00:59 3 ml Q6HRRT NADINE Administration Enoxaparin Sodium 40 mg 05/30/25 09:00 05/30/25 08:37 Enoxaparin Sod Inj 40 Mg/0.4 Ml Syringe SC 06/13/25 08:59 40 mg QDAY NADINE Administration Cefepime HCl 2 gm/ Sodium 50 mls @ 100 mls/hr 05/30/25 04:00 05/30/25 05:08 Chloride IV 06/06/25 03:59 100 mls/hr Q8HR NADINE Administration Magnesium Sulfate 4 gm in 50 mls @ 12.5 mls/hr 05/30/25 07:50 05/30/25 08:37 Magnesium Sulfate Ivpb IV 05/30/25 11:49 12.5 mls/hr X1 ONE Administration Vancomycin/Sodium Chloride 750 mg in 150 mls @ 120 mls/hr 05/30/25 14:00 Vancomycin/Ns 750 Mg Ivpb IV 06/06/25 13:59 Q8HR NADINE Lactated Ringer's 1,000 mls @ 999 mls/hr 05/30/25 10:26 05/30/25 10:32 Lactated Ringers IV 05/30/25 11:26 999 mls/hr .Q1H1M ONE Administration Midodrine 10 mg 05/30/25 08:00 05/30/25 08:37 Midodrine 5 Mg Tablet GT 06/29/25 07:59 10 mg Q8HR NADINE Administration Pharmacy Consult 1 each 05/30/25 09:00 Vancomycin Pharmacy To Dose 1 Each Each IV 06/29/25 08:59 QDAY PRN CONSULT Plan Summary: 54-year-old male with a history of chronic vegetative state secondary to traumatic and anoxic brain injury, hypertension, s/p tracheostomy, and percutaneous endoscopic gastrostomy was transferred from a subacute rehabilitation facility on 05/29/2025. The patient presented to the ED with a chief complaint of fever (102.5) and tachycardia (112) and was admitted to the ICU with septic shock secondary to right lower lobe healthcare-associated pneumonia. Since has resolved and now stable to be downgraded to medical floor. CEMENT MASON: #Hx of chronic encephalopathy 2/2 #Hx of chronic vegetative state s/p traumatic and anoxic brain injury No intervention indicated CVS: #Septic shock, resolved With IVF and abx #Hypotension No shock suspected, BPs tend to run low MAP goal >60 Home midodrine 10mg q8h resumed #Hx of HTN - Hold any home antihypertensive for now PULM: #Healthcare associated pneumonia Patient presented with fever of 102.5, and chest x-ray was significant for right lower lobe pneumonia, and patient is a resident of subacute rehab - Continue antibiotics as per ID - Continue DuoNeb every 6 hour scheduled #Chronic respiratory failure 2/2 #S/p traumatic and anoxic brain injury #Chronic tracheostomy tube - Continue with blow-by GI: #Chronic PEG tube - May start PEG tube feeding NEPHRO: #Hypomagnesemia ?Repleted today with 4 g of magnesium sulfate IV #Hypophosphatemia ?Repleted today with 1 packet of Neutra-Phos ENDO: - No active issue HEME: #Leukocytosis Likely secondary to sepsis Presented with white count of 28 - Antibiotics as per ID - Daily a.m. labs for CBC #Normocytic anemia Likely dilutional from IVF recieved ID: #Healthcare associated right lower lobe pneumonia No longer in septic shock - Started on vancomycin and cefepime 05/29- - Blood culture, urine culture and sputum culture pending MSK: #Chronic upper and lower limb contractures Likely secondary to chronic vegetative state Health maintenance: Dispo: Patient downgraded to the medical floor for management of healthcare associated pneumonia DVT prophylaxis: Subcu Lovenox Diet: N.p.o. Lines: Peripheral lines CODE STATUS: DNR Case discussed with my attending Dr. Surya Ortiz MD PGY-1
--- NOTE | 2025-05-30 12:16 | ESPR_ITS ---
<Statement entered by Chris Ford MD - 05/31/25 09:10> Patient was examined and case was reviewed with team including attending physician. Note reviewed, I agree with most of its contents and agree with the patient's care as documented by Dr. Segundo ICU downgrade: This is a 54-year-old male with past medical history of chronic vegetative state, anoxic brain injury, tracheostomy in PEG tube, hypertension who presented from the subacute facility due to new onset fever and elevated heart rate. Patient was admitted to the ICU for septic shock requiring pressors. Patient was later weaned off of Levophed and transition to midodrine. Patient was later found stable enough to be downgraded to the floors. Will continue current management with IV antibiotics for treatment of likely health associated pneumonia. Case discussed with my attending Dr. Jessica Ford MD PGY-2 Disclaimer: Despite multiple revisions, due to the dictation software being used, the document bellow may not be free of grammatical errors including phonetic/typographic errors. However, this does not deter from our commitment to providing health care in the patient's best interest in mind. Documentation for date of: 05/30/25 Subjective Subjective Interval history: Mr. Monreal is a 54 y/o male with past medical history of chronic vegetative state secondary to traumatic and anoxic brain injury, S/P tracheostomy and PEG tube, hypertension who presented from subacute rehab facility on 05/29/2025 for new onset fever and tachycardia. Due to baseline nonverbal state history cannot be obtained from the patient. History obtained from chart review. Patient was admitted to ICU for management of septic shock secondary to right lower lobe hospital associated pneumonia requiring pressors (Levophed gtt). Patient received 3 L bolus fluid in the ED. Patient was started on cefepime and vancomycin. Appropriate MAP since pressors were discharged at 1150 last night. Appropriate downgrade to telemetry for further management of HAP. Continuing to hold antihypertensives as patient's BP are soft, currently on midodrine. Pending blood, urine, sputum cultures. Patient evaluated at bedside. VSS on midodrine. Patient remains unresponsive to verbal stimuli. Patient also has upper and lower limb contractures. Exam Vital Signs Temp Pulse Resp BP Pulse Ox O2 Del Method O2 Flow Rate 97.0 F 67 15 84/55 L 100 Blow-by 10 08/17/25 08:00 05/30/25 11:53 05/30/25 11:53 05/30/25 10:00 05/30/25 11:53 05/30/25 10:00 05/30/25 11:53 FiO2 40 05/30/25 11:53 Narrative Exam General: No acute distress, not interactive HEENT: Normocephalic, atraumatic, normal hearing, moist oral mucosa, trach tube with blow by in place Lungs: Diffuse rhonchi. Symmetric air entry, no crackles or wheezes Heart: Normal S1 and S2, no S3 or S4 appreciated. Normal rate and regular rhythm, no murmurs, rubs gallops, or edema. Abdomen: Soft, non-distended Musculoskeletal: B/L UE and LE contractures, atrophic musculature throughout Skin: Skin is warm, dry, no rashes or lesions. Neurologic: Not responsive to verbal stimuli. Does not follow commands. Objective Labs 05/31/25 05:18 05/31/25 05:18 Labs: Laboratory Results - last 24 hr 05/29/25 05/29/25 05/29/25 20:22 20:24 20:25 WBC 28.9 H RBC 4.68 Hgb 15.2 Hct 43.8 MCV 94 MCH 32.5 MCHC 34.7 RDW Std Deviation 42.2 Plt Count 234 Neut % (Auto) 93 H Lymph % (Auto) 2 L [place] % (Auto) 4 Eos % (Auto) 0 Baso % (Auto) 0 Neut # (Auto) 27.0 H Lymph # (Auto) 0.7 L [place] # (Auto) 1.0 H Eos # (Auto) 0.0 Baso # (Auto) 0.1 Immature Gran # (Auto) 0.20 H Absolute Nucleated RBC 0.00 Immature Gran % 1 H Nucleated RBC % 0 ESR 20 Puncture Site Right Radial ABG pH 7.44 ABG pCO2 37 ABG pO2 86 ABG HCO3 25 ABG O2 Saturation 98 ABG Base Excess 1 Oxygen Liter Flow 12 FiO2 21 Sodium 134 L Potassium 3.8 Chloride 100 Carbon Dioxide 24.5 Anion Gap 10 BUN 11 Creatinine 0.6 Estim Creat Clear Calc 136.2 eGFR > 60 BUN/Creatinine Ratio 18 Glucose 148 H Calculated Osmolality 270 L Lactic Acid 2.6 H Calcium 9.6 Corrected Calcium 9.6 Phosphorus Magnesium 1.6 Total Bilirubin 0.9 Direct Bilirubin 0.3 AST 27 ALT 26 Alkaline Phosphatase 117 H C-Reactive Prot, Quant 4.4 H Total Protein 7.0 Albumin 4.2 Globulin 2.8 Albumin/Globulin Ratio 1.5 Procalcitonin 0.20 Ur Collection Type Urine Color Urine Clarity Urine pH Ur Specific [place] Urine Protein Urine Glucose (UA) Urine Ketones Urine Blood Urine Nitrite Urine Bilirubin Urine Urobilinogen (Auto) Ur Leukocyte Esterase Urine RBC Urine WBC Ur Squamous Epith Cells Amorphous Crystals Urine Bacteria Ur Culture Indicated? RSV Rapid Negative Group A Strep Rapid Negative 05/29/25 05/30/25 05/30/25 20:42 00:40 04:36 WBC RBC Hgb Hct MCV MCH MCHC RDW Std Deviation Plt Count Neut % (Auto) Lymph % (Auto) [place] % (Auto) Eos % (Auto) Baso % (Auto) Neut # (Auto) Lymph # (Auto) [place] # (Auto) Eos # (Auto) Baso # (Auto) Immature Gran # (Auto) Absolute Nucleated RBC Immature Gran % Nucleated RBC % ESR Puncture Site ABG pH ABG pCO2 ABG pO2 ABG HCO3 ABG O2 Saturation ABG Base Excess Oxygen Liter Flow FiO2 Sodium 143 Potassium 4.2 Chloride 109 H Carbon Dioxide 24.2 Anion Gap 10 BUN 9 Creatinine 0.6 Estim Creat Clear Calc 136.2 eGFR > 60 BUN/Creatinine Ratio 15 Glucose 183 H Calculated Osmolality 288 Lactic Acid 1.6 Calcium 9.3 Corrected Calcium 9.7 Phosphorus 2.0 L Magnesium 1.3 L Total Bilirubin 0.7 Direct Bilirubin AST 18 ALT 19 Alkaline Phosphatase 91 D C-Reactive Prot, Quant Total Protein 6.0 Albumin 3.5 D Globulin 2.5 Albumin/Globulin Ratio 1.4 Procalcitonin Ur Collection Type Clean Catch Urine Color Lt-Yellow Urine Clarity Clear Urine pH 6.5 Ur Specific [place] 1.008 Urine Protein Negative Urine Glucose (UA) Negative Urine Ketones Negative Urine Blood 3+ A Urine Nitrite Negative Urine Bilirubin Negative Urine Urobilinogen (Auto) Negative Ur Leukocyte Esterase Positive Urine RBC 6 H Urine WBC 5 Ur Squamous Epith Cells 0 Amorphous Crystals Present A Urine Bacteria None Ur Culture Indicated? Not Indicated RSV Rapid Group A Strep Rapid 05/30/25 08:21 WBC 27.3 H RBC 3.91 L Hgb 12.8 L D Hct 37.5 L MCV 96 MCH 32.7 MCHC 34.1 RDW Std Deviation 43.3 Plt Count 203 D Neut % (Auto) 96 H Lymph % (Auto) 2 L [place] % (Auto) 1 Eos % (Auto) 0 Baso % (Auto) 0 Neut # (Auto) 26.2 H Lymph # (Auto) 0.7 L [place] # (Auto) 0.3 Eos # (Auto) 0.0 Baso # (Auto) 0.0 Immature Gran # (Auto) 0.13 H Absolute Nucleated RBC 0.00 Immature Gran % 1 H Nucleated RBC % 0 ESR Puncture Site ABG pH ABG pCO2 ABG pO2 ABG HCO3 ABG O2 Saturation ABG Base Excess Oxygen Liter Flow FiO2 Sodium Potassium Chloride Carbon Dioxide Anion Gap BUN Creatinine Estim Creat Clear Calc eGFR BUN/Creatinine Ratio Glucose Calculated Osmolality Lactic Acid Calcium Corrected Calcium Phosphorus Magnesium Total Bilirubin Direct Bilirubin AST ALT Alkaline Phosphatase C-Reactive Prot, Quant Total Protein Albumin Globulin Albumin/Globulin Ratio Procalcitonin Ur Collection Type Urine Color Urine Clarity Urine pH Ur Specific [place] Urine Protein Urine Glucose (UA) Urine Ketones Urine Blood Urine Nitrite Urine Bilirubin Urine Urobilinogen (Auto) Ur Leukocyte Esterase Urine RBC Urine WBC Ur Squamous Epith Cells Amorphous Crystals Urine Bacteria Ur Culture Indicated? RSV Rapid Group A Strep Rapid ABG Interpretation ABG results: 05/29/25 20:24 ABG pH 7.44 ABG pCO2 37 ABG pO2 86 ABG HCO3 25 ABG O2 Saturation 98 ABG Base Excess 1 Quality Measures Quality Measures none Assessment & Plan Assessment Current Active Medications: Generic Name Dose Route Start Last Admin Trade Name Freq PRN Reason Stop Dose Admin Acetaminophen 650 mg 05/30/25 11:09 Acetaminophen 325 Mg Tablet PO 06/29/25 11:08 Q6HR PRN Pain 1-3 Acetaminophen 650 mg 05/30/25 11:09 Acetaminophen 325 Mg Tablet PO 06/29/25 11:08 Q4HR PRN Fever>100.4 Albuterol/Ipratropium 3 ml 05/30/25 01:00 05/30/25 11:53 Albuterol/Ipratropium (Duoneb) Rt Johanne 3 Ml Nebu INH 06/29/25 00:59 3 ml Q6HRRT NADINE Administration Enoxaparin Sodium 40 mg 05/30/25 09:00 05/30/25 08:37 Enoxaparin Sod Inj 40 Mg/0.4 Ml Syringe SC 06/13/25 08:59 40 mg QDAY NADINE Administration Cefepime HCl 2 gm/ Sodium 50 mls @ 100 mls/hr 05/30/25 04:00 05/30/25 05:08 Chloride IV 06/06/25 03:59 100 mls/hr Q8HR NADINE Administration Vancomycin/Sodium Chloride 750 mg in 150 mls @ 120 mls/hr 05/30/25 14:00 Vancomycin/Ns 750 Mg Ivpb IV 06/06/25 13:59 Q8HR NADINE Midodrine 10 mg 05/30/25 08:00 05/30/25 08:37 Midodrine 5 Mg Tablet GT 06/29/25 07:59 10 mg Q8HR NADINE Administration Pharmacy Consult 1 each 05/30/25 09:00 Vancomycin Pharmacy To Dose 1 Each Each IV 06/29/25 08:59 QDAY PRN CONSULT Plan # Septic shock - resolved # Hospital associated pneumonia Initially presented from subacute long-term care with fever and tachycardia, Tmax 103.7, now resolved Admitted to ICU for pressor requirement Diffuse rhonchi appreciated on physical exam Initial leukocytosis of 27.8 COVID, RSV, flu, group A strep negative CXR showed right base pneumonia, UA negative for UTI Given 3 L IVF, methylprednisolone 125 mg IV x 1 given Levophed in ICU, VSS off pressors >12 hours Plan: - Midodrine 10 mg GT q8h - DuoNebs q4h, aiway suction BID, chest physiotherapy w/ vest daily, Budesonide TID, Mucomyst q4h, Guaifenesin QID - Cefepime 2 g- IV q8h (05/29 - ) - Vancomycin 750 mg IV q8h (05/29 - ) - Pending blood, urine, sputum cultures # Hypotension No longer requiring pressors Plan: - Continue Midodrine 10 mg GT q8h # Normocytic anemia Plan: - CTM with daily CBC # Hyperglycemia 1 episode, no history of diabetes Plan: - CTM with daily CMP # Hypophosphatemia # Hypomagnesemia Plan: - Replete as needed # Chronic encephalopathy # Chronic vegetative state # Chronic traumatic and anoxic brain injury Plan: - No intervention indicated # Chronic respiratory failure # Chronic tracheostomy Plan: - Continue with blow-by # Chronic PEG tube Plan: - Consulted telegraph printer mechanic to restart PEG tube feeds # Chronic upper and lower limb contractures Plan: - No intervention indicated # Hypertension Plan: - Hold home antihypertensives at this time given soft BP Checklist Dispo: Continued management of HAP Diet: PEG tube feeds Bowel Reg: none VTE ppx: Lovenox 40 mg daily GI ppx: none Pain mgmt: Tylenol Code status: DNR Plan discussed with Dr. Archer and Dr. Jessica Segundo MD PGY1 Attending Provider Attestation/Addendum Fawn Roy DO, attest that I was physically present for the del cid portions of the service and evaluated the patient with the resident and I reviewed and discussed the case with the resident and agree with the resident's findings and plans of care as documented above Patient is a 54 year old male with Pmhx of anoxic brain injury, chronic vegetative state requiring trach and PEG, HTN who was brought to ED from subacute facility due to fever and tachycardia. Patient was admitted to the ICU due to septic shock. He was also found to have a right lower lobe pneumonia. Patient was started on Vancomycin and cefepime. He has since been weaned off pressors and downgraded to telemetry. Patient started on midodrine for low BP. However, MAP was 75 at time of evaluation. Pending cultures. Patient opens eyes to verbal and tactile stimuli. He has diffuse rhonchi on exam with thick white sputum from trach. Will need deep suctioning, chest PT and mucolytics which have been ordered. Will f/u with blood, urine and sputum cultures. Patient remains on blow by at this time
--- NOTE | 2025-05-30 13:33 | PD.INTPROG ---
Documentation for date of: 05/30/25 Subjective Subjective Interval history: This a 54-year-old male who is from subacute who presented to the ER overnight. He is nonverbal at baseline and is status post trach and PEG with severe anoxic brain injury. He was febrile and noted to have a pneumonia. He was hypotensive despite fluid resuscitation and started on Levophed. His Levophed was turned off this morning at 6 AM. He is on midodrine at baseline. There were no additional overnight acute events. Patient is on blow-by at baseline. Critical Care Note Critical care time (min.): 0 Exam Vital Signs Temp Pulse Resp BP Pulse Ox O2 Del Method O2 Flow Rate 97.0 F 67 15 84/55 L 100 Blow-by 10 05/30/25 08:00 05/30/25 11:53 05/30/25 11:53 05/30/25 10:00 05/30/25 11:53 05/30/25 10:00 05/30/25 11:53 FiO2 40 05/30/25 11:53 Narrative Exam General-chronically ill-appearing, contracted, sclera anicteric HEENT-normocephalic, atraumatic, sclera anicteric, trach in place, oral mucosa somewhat dry Chest-coarse breath sounds bilaterally, central bronchial sounds, heart rate regular rhythmic, no increased work of breathing Abdomen-soft, nontender, bowel sounds present, no rebound or guarding, PEG in place Extremities-muscle atrophy noted, pulses palpable, clammy, contracted Physical Exam Completion Physical Exam Complete?: Yes Objective - Mechanical Engineer Labs 05/31/25 05:18 05/31/25 05:18 Labs: Laboratory Results - last 24 hr 05/29/25 05/29/25 05/29/25 20:22 20:24 20:25 WBC 28.9 H RBC 4.68 Hgb 15.2 Hct 43.8 MCV 94 MCH 32.5 MCHC 34.7 RDW Std Deviation 42.2 Plt Count 234 Neut % (Auto) 93 H Lymph % (Auto) 2 L [place] % (Auto) 4 Eos % (Auto) 0 Baso % (Auto) 0 Neut # (Auto) 27.0 H Lymph # (Auto) 0.7 L [place] # (Auto) 1.0 H Eos # (Auto) 0.0 Baso # (Auto) 0.1 Immature Gran # (Auto) 0.20 H Absolute Nucleated RBC 0.00 Immature Gran % 1 H Nucleated RBC % 0 ESR 20 Puncture Site Right Radial ABG pH 7.44 ABG pCO2 37 ABG pO2 86 ABG HCO3 25 ABG O2 Saturation 98 ABG Base Excess 1 Oxygen Liter Flow 12 FiO2 21 Sodium 134 L Potassium 3.8 Chloride 100 Carbon Dioxide 24.5 Anion Gap 10 BUN 11 Creatinine 0.6 Estim Creat Clear Calc 136.2 eGFR > 60 BUN/Creatinine Ratio 18 Glucose 148 H Calculated Osmolality 270 L Lactic Acid 2.6 H Calcium 9.6 Corrected Calcium 9.6 Phosphorus Magnesium 1.6 Total Bilirubin 0.9 Direct Bilirubin 0.3 AST 27 ALT 26 Alkaline Phosphatase 117 H C-Reactive Prot, Quant 4.4 H Total Protein 7.0 Albumin 4.2 Globulin 2.8 Albumin/Globulin Ratio 1.5 Procalcitonin 0.20 Ur Collection Type Urine Color Urine Clarity Urine pH Ur Specific [place] Urine Protein Urine Glucose (UA) Urine Ketones Urine Blood Urine Nitrite Urine Bilirubin Urine Urobilinogen (Auto) Ur Leukocyte Esterase Urine RBC Urine WBC Ur Squamous Epith Cells Amorphous Crystals Urine Bacteria Ur Culture Indicated? RSV Rapid Negative Group A Strep Rapid Negative 05/29/25 05/30/25 05/30/25 20:42 00:40 04:36 WBC RBC Hgb Hct MCV MCH MCHC RDW Std Deviation Plt Count Neut % (Auto) Lymph % (Auto) [place] % (Auto) Eos % (Auto) Baso % (Auto) Neut # (Auto) Lymph # (Auto) [place] # (Auto) Eos # (Auto) Baso # (Auto) Immature Gran # (Auto) Absolute Nucleated RBC Immature Gran % Nucleated RBC % ESR Puncture Site ABG pH ABG pCO2 ABG pO2 ABG HCO3 ABG O2 Saturation ABG Base Excess Oxygen Liter Flow FiO2 Sodium 143 Potassium 4.2 Chloride 109 H Carbon Dioxide 24.2 Anion Gap 10 BUN 9 Creatinine 0.6 Estim Creat Clear Calc 136.2 eGFR > 60 BUN/Creatinine Ratio 15 Glucose 183 H Calculated Osmolality 288 Lactic Acid 1.6 Calcium 9.3 Corrected Calcium 9.7 Phosphorus 2.0 L Magnesium 1.3 L Total Bilirubin 0.7 Direct Bilirubin AST 18 ALT 19 Alkaline Phosphatase 91 D C-Reactive Prot, Quant Total Protein 6.0 Albumin 3.5 D Globulin 2.5 Albumin/Globulin Ratio 1.4 Procalcitonin Ur Collection Type Clean Catch Urine Color Lt-Yellow Urine Clarity Clear Urine pH 6.5 Ur Specific [place] 1.008 Urine Protein Negative Urine Glucose (UA) Negative Urine Ketones Negative Urine Blood 3+ A Urine Nitrite Negative Urine Bilirubin Negative Urine Urobilinogen (Auto) Negative Ur Leukocyte Esterase Positive Urine RBC 6 H Urine WBC 5 Ur Squamous Epith Cells 0 Amorphous Crystals Present A Urine Bacteria None Ur Culture Indicated? Not Indicated RSV Rapid Group A Strep Rapid 05/30/25 08:21 WBC 27.3 H RBC 3.91 L Hgb 12.8 L D Hct 37.5 L MCV 96 MCH 32.7 MCHC 34.1 RDW Std Deviation 43.3 Plt Count 203 D Neut % (Auto) 96 H Lymph % (Auto) 2 L [place] % (Auto) 1 Eos % (Auto) 0 Baso % (Auto) 0 Neut # (Auto) 26.2 H Lymph # (Auto) 0.7 L [place] # (Auto) 0.3 Eos # (Auto) 0.0 Baso # (Auto) 0.0 Immature Gran # (Auto) 0.13 H Absolute Nucleated RBC 0.00 Immature Gran % 1 H Nucleated RBC % 0 ESR Puncture Site ABG pH ABG pCO2 ABG pO2 ABG HCO3 ABG O2 Saturation ABG Base Excess Oxygen Liter Flow FiO2 Sodium Potassium Chloride Carbon Dioxide Anion Gap BUN Creatinine Estim Creat Clear Calc eGFR BUN/Creatinine Ratio Glucose Calculated Osmolality Lactic Acid Calcium Corrected Calcium Phosphorus Magnesium Total Bilirubin Direct Bilirubin AST ALT Alkaline Phosphatase C-Reactive Prot, Quant Total Protein Albumin Globulin Albumin/Globulin Ratio Procalcitonin Ur Collection Type Urine Color Urine Clarity Urine pH Ur Specific [place] Urine Protein Urine Glucose (UA) Urine Ketones Urine Blood Urine Nitrite Urine Bilirubin Urine Urobilinogen (Auto) Ur Leukocyte Esterase Urine RBC Urine WBC Ur Squamous Epith Cells Amorphous Crystals Urine Bacteria Ur Culture Indicated? 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 brain injury CV Shock-currently resolved - on home dose midodrine Resp Chronic respiratory failure-continue patient on blow-by Pneumonia-on broad-spectrum antibiotics, once cultures have returned with de-escalate Renal Hypomagnesemia-replete IV GI Status post PEG-continue tube feeds Endo Stable Heme Leukocytosis-likely secondary to underlying infection DVT prophylaxis-Lovenox ID Sepsis-patient meets SIRS criteria with source likely lung, continue antibiotics, de-escalate antibiotics as able Case discussed with ICU team Labs, imaging and records reviewed Approximately 37 minutes required evaluation, exam, intervention, discussion formulation of plan of care for this unfortunate gentleman with anoxic brain injury Provider Notation Provider Notation: Although this document has been carefully reviewed, there may still be some phonetic and other typographical errors. These errors are purely grammatical due to imperfections in the software program and should not be construed in any way to compromise the substance of the patient's medical care during this visit. Thank you for the opportunity and privilege in assisting you with this patient's care and management.
[2025-05-30] MEDS: VANCOMYCIN/NS 750 MG IVPB 750 MG/150 ML BAG 120 MG IV ×2 (13:56→22:12)
[2025-05-30] MEDS: BUDESONIDE RT 0.5 MG/2 ML NEBU 1 MG INH ×2 (14:18→22:11)
[2025-05-30] MEDS: ACETYLCYSTEINE SOL 20% 4 ML NEBU 3 ML INH ×3 (14:18→22:10)
[2025-05-30 16:03] LABS: Creatine Kinase 207 U/L (34-171)
[2025-05-31] VITALS (26 sets, daily range): BP systolic 86–136; BP diastolic 58–90; PULSE 72–135; RESP 17–25; TEMP 36.5–38.3; O2SAT 95–100; BMI 25.2
[2025-05-31] MEDS: ACETYLCYSTEINE SOL 20% 4 ML NEBU 3 ML INH ×6 (02:17→23:28)
[2025-05-31] MEDS: ALBUTEROL/IPRATROPIUM (Duoneb) RT SOL 3 ML NEBU INH ×6 (02:18→23:28)
[2025-05-31] MEDS: ACETAMINOPHEN 325 MG TABLET 650 MG PO ×2 (03:13→16:05)
[2025-05-31] MEDS: CEFEPIME INJ 2 GM in SODIUM CHLORIDE 0.9% (Popper) 50 ML IV ×3 (05:20→21:01)
[2025-05-31] MEDS: BUDESONIDE RT 0.5 MG/2 ML NEBU 1 MG INH ×2 (06:17→18:59)
[2025-05-31 06:21] LABS: Basophils # (Auto) 0.0 Thou/mm3 (0.0-0.2); Basophils % (Auto) 0 % (0-2.5); Eosinophils # (Auto) 0.0 Thou/mm3 (0.0-0.5); Eosinophils % (Auto) 0 % (0-10); Hematocrit 38.1 % (41.0-53.0); Hemoglobin 12.9 g/dL (13.5-16.0); Immature Granulocytes Auto 0.12 Thou/mm3 (0.00-0.00); Lymphocytes # (Auto) 1.0 Thou/mm3 (1.0-4.8); Lymphocytes % (Auto) 4 % (10-50); Mean Corpuscular HGB Conc 33.9 g/dl (31.0-37.0); Mean Corpuscular Hemoglobin 32.3 pg (25.0-35.0); Mean Corpuscular Volume 96 fL (80-100); Monocytes # (Auto) 1.5 Thou/mm3 (0.0-0.8); Monocytes % (Auto) 7 % (0-12); Neutrophils # (Auto) 20.2 Thou/mm3 (1.8-7.7); Neutrophils % (Auto) 88 % (37-80); Nucleated Red Blood Cell # 0.00 Thou/mm3 (0.00-0.00); Nucleated Red Blood Cell % 0 /100 WBC (0); Platelet Count 185 Thou/mm3 (140-440); RDW Standard Deviation 42.9 fL (35.1-43.9); Red Blood Count 3.99 Miln/mm3 (4.50-5.90); White Blood Count 22.8 Thou/mm3 (3.8-10.6)
[2025-05-31 06:40] LABS: Alanine Aminotransferase 20 U/L (10-49); Albumin, Serum 3.6 gm/dL (3.5-5.0); Albumin/Globulin Ratio 1.4 (1.2-2.2); Alkaline Phosphatase 87 U/L (46-116); Anion Gap 11 (7-16); Aspartate Amino Transferase 21 U/L (0-34); BUN/Creatinine Ratio 18 Ratio (12-20); Bilirubin,Total 0.5 mg/dL (0.3-1.2); Blood Urea Nitrogen 9 mg/dL (9-23); Calcium 9.4 mg/dL (8.3-10.6); Calcium (Corrected) 9.7 mg/dL (8.5-10.1); Carbon Dioxide 24.3 mMol/L (20.0-31.0); Chloride 108 mMol/L (98-107); Creatinine (Component) 0.5 mg/dL (0.6-1.3); Estimated Creatinine Clearance 163.4 mL/min (>60); Globulin 2.6 gm/dL (2.3-3.5); Glucose 128 mg/dL (74-106); Magnesium 1.5 mg/dL (1.6-2.6); Osmolality,Calculated 285 (275-295); Phosphorous 2.1 mg/dL (2.4-5.1); Potassium 3.5 mMol/L (3.4-5.1); Sodium 143 mMol/L (136-145); Total Protein 6.2 gm/dL (5.7-8.2); Vancomycin,Trough 10.3 mcg/mL (5.0-10.0); eGFR > 60 See Note
[2025-05-31] MEDS: VANCOMYCIN/NS 750 MG IVPB 750 MG/150 ML BAG 120 MG IV (06:47)
[2025-05-31] MEDS: ENOXAPARIN SOD INJ 40 MG/0.4 ML SYRINGE SC (08:00)
--- NOTE | 2025-05-31 08:08 | ESPR_ITS ---
<Statement entered by Chris Ford MD - 05/31/25 13:34> Patient was examined and case was reviewed with team including attending physician. Note reviewed, I agree with most of its contents and agree with the patient's care as documented by Dr. Segundo Patient seen and evaluated at the bedside. Bilateral rhonchi improving compared to previous examinations. Patient will continue with deep suctioning and breathing treatments as well as IV antibiotics. Case discussed with my attending Dr. Jessica Ford MD PGY-2 Disclaimer: Despite multiple revisions, due to the dictation software being used, the document bellow may not be free of grammatical errors including phonetic/typographic errors. However, this does not deter from our commitment to providing health care in the patient's best interest in mind. Documentation for date of: 05/31/25 Subjective Subjective Interval history: NAEO. T max 100.2. HR max 130s, RR max 22. BP improved from yesterday. Continues to have some excess secretions, improved from yesterday. Exam Vital Signs Temp Pulse Resp BP Pulse Ox O2 Del Method O2 Flow Rate 98.9 F 126 H 22 H 136/82 H 99 Blow-by 8 05/31/25 04:10 05/31/25 06:19 05/31/25 06:19 05/31/25 05:21 05/31/25 06:19 05/31/25 04:00 05/31/25 06:19 FiO2 30 05/31/25 06:19 Narrative Exam General: No acute distress, not interactive HEENT: Normocephalic, atraumatic, normal hearing, moist oral mucosa, trach tube with blow by in place Lungs: Diffuse rhonchi (improved from yesterday). Symmetric air entry, no crackles or wheezes Heart: Normal S1 and S2, no S3 or S4 appreciated. Normal rate and regular rhythm, no murmurs, rubs gallops, or edema. Abdomen: Soft, non-distended Musculoskeletal: B/L UE and LE contractures, atrophic musculature throughout Skin: Skin is warm, dry, no rashes or lesions. Neurologic: Not responsive to verbal stimuli. Does not follow commands. Objective Labs 05/31/25 05:18 05/31/25 05:18 Labs: Laboratory Results - last 24 hr 05/30/25 05/30/25 05/31/25 08:21 15:10 05:18 WBC 27.3 H 22.8 H RBC 3.91 L 3.99 L Hgb 12.8 L D 12.9 L Hct 37.5 L 38.1 L MCV 96 96 MCH 32.7 32.3 MCHC 34.1 33.9 RDW Std Deviation 43.3 42.9 Plt Count 203 D 185 Neut % (Auto) 96 H 88 H Lymph % (Auto) 2 L 4 L [place] % (Auto) 1 7 Eos % (Auto) 0 0 Baso % (Auto) 0 0 Neut # (Auto) 26.2 H 20.2 H Lymph # (Auto) 0.7 L 1.0 [place] # (Auto) 0.3 1.5 H Eos # (Auto) 0.0 0.0 Baso # (Auto) 0.0 0.0 Immature Gran # (Auto) 0.13 H 0.12 H Absolute Nucleated RBC 0.00 0.00 Immature Gran % 1 H 1 H Nucleated RBC % 0 0 Sodium 143 Potassium 3.5 D Chloride 108 H Carbon Dioxide 24.3 Anion Gap 11 BUN 9 Creatinine 0.5 L Estim Creat Clear Calc 163.4 eGFR > 60 BUN/Creatinine Ratio 18 Glucose 128 H D Calculated Osmolality 285 Calcium 9.4 Corrected Calcium 9.7 Phosphorus 2.1 L Magnesium 1.5 L Total Bilirubin 0.5 AST 21 ALT 20 Alkaline Phosphatase 87 Total Creatine Kinase 207 H Total Protein 6.2 Albumin 3.6 Globulin 2.6 Albumin/Globulin Ratio 1.4 Vancomycin Trough 10.3 H ABG Interpretation ABG results: 05/29/25 20:24 ABG pH 7.44 ABG pCO2 37 ABG pO2 86 ABG HCO3 25 ABG O2 Saturation 98 ABG Base Excess 1 Quality Measures Quality Measures none Assessment & Plan Assessment Current Active Medications: Generic Name Dose Route Start Last Admin Trade Name Freq PRN Reason Stop Dose Admin Acetaminophen 650 mg 05/30/25 11:09 Acetaminophen 325 Mg Tablet PO 06/29/25 11:08 Q6HR PRN Pain 1-3 Acetaminophen 650 mg 05/30/25 11:09 05/31/25 03:13 Acetaminophen 325 Mg Tablet PO 06/29/25 11:08 650 mg Q4HR PRN Administration Fever>100.4 Acetylcysteine 3 ml 05/30/25 15:00 05/31/25 06:17 Acetylcysteine Johanne 20% 4 Ml Nebu INH 06/29/25 14:59 3 ml Q4HRRT NADINE Administration Albuterol/Ipratropium 3 ml 05/30/25 15:00 05/31/25 06:17 Albuterol/Ipratropium (Duoneb) Rt Johanne 3 Ml Nebu INH 06/29/25 14:59 3 ml Q4HRRT NADINE Administration Budesonide 1 mg 05/31/25 07:00 05/31/25 06:17 Budesonide Rt 0.5 Mg/2 Ml Nebu INH 06/30/25 06:59 1 mg BIDRT NADINE Administration Enoxaparin Sodium 40 mg 05/30/25 09:00 05/31/25 08:00 Enoxaparin Sod Inj 40 Mg/0.4 Ml Syringe SC 06/13/25 08:59 40 mg QDAY NADINE Administration Guaifenesin 100 mg 05/30/25 13:17 Guaifenesin Syrup 200 Mg/10 Ml Udc PO 06/29/25 13:16 QID PRN COUGH Protocol Cefepime HCl 2 gm/ Sodium 50 mls @ 100 mls/hr 05/30/25 04:00 05/31/25 05:20 Chloride IV 06/06/25 03:59 100 mls/hr Q8HR NADINE Administration Vancomycin/Sodium Chloride 750 mg in 150 mls @ 120 mls/hr 05/30/25 14:00 05/31/25 06:47 Vancomycin/Ns 750 Mg Ivpb IV 05/31/25 09:00 120 mls/hr Q8HR NADINE Administration Protocol Vancomycin HCl 200 mls @ 120 mls/hr 05/31/25 14:00 Vancomycin/Water 1gm Ivpb IV 06/07/25 13:59 Q8HR NADINE Magnesium Sulfate 2 gm in 50 mls @ 25 mls/hr 05/31/25 08:03 Magnesium Sulfate Ivpb IV 05/31/25 10:02 X1 ONE Potassium Phosphate 15 mmol in 250 mls @ 62.5 mls/hr 05/31/25 08:04 Pot Phos 15 Mmol In Ns 250 Ml IV 05/31/25 12:03 X1 ONE Potassium Chloride 10 meq in 100 mls @ 100 mls/hr 05/31/25 08:06 Kcl Ivpb IV 05/31/25 09:05 X1 ONE Midodrine 10 mg 05/30/25 08:00 05/31/25 05:21 Midodrine 5 Mg Tablet GT 06/29/25 07:59 Not Given Q8HR [facility] Pharmacy Consult 1 each 05/30/25 09:00 Vancomycin Pharmacy To Dose 1 Each Each IV 06/29/25 08:59 QDAY PRN CONSULT Plan # Septic shock - resolved # Hospital associated pneumonia Initially presented from subacute long-term care with fever and tachycardia, Tmax 103.7, now resolved Admitted to ICU for pressor requirement Diffuse rhonchi appreciated on physical exam Initial leukocytosis of 27.8 Sputum gram stain showed gram positive rods, gram negative rods, gram positive cocci. Hx ESBL COVID, RSV, flu, group A strep negative CXR showed right base pneumonia, UA negative for UTI Given 3 L IVF, methylprednisolone 125 mg IV x 1 given Levophed in ICU, VSS off pressors >12 hours Plan: - Midodrine 10 mg GT q8h - DuoNebs q4h, aiway suction BID, chest physiotherapy w/ vest daily, Budesonide TID, Mucomyst q4h, Guaifenesin QID - Cefepime 2 g- IV q8h (05/29 - ) - Vancomycin 750 mg IV q8h (05/29 - ) - Pending blood, urine, sputum cultures # Hypotension No longer requiring pressors Plan: - Continue Midodrine 10 mg GT q8h # Normocytic anemia Plan: - CTM with daily CBC # Hyperglycemia 1 episode, no history of diabetes Plan: - CTM with daily CMP # Hypophosphatemia # Hypomagnesemia Plan: - Replete as needed # Chronic encephalopathy # Chronic vegetative state # Chronic traumatic and anoxic brain injury Plan: - No intervention indicated # Chronic respiratory failure # Chronic tracheostomy Plan: - Continue with blow-by # Chronic PEG tube Plan: - Restarted PEG tube feeds # Chronic upper and lower limb contractures Plan: - No intervention indicated # Hypertension Plan: - Hold home antihypertensives at this time given soft BP Checklist Dispo: Continued management of HAP, pending culture results Diet: PEG tube feeds Bowel Reg: none VTE ppx: Lovenox 40 mg daily GI ppx: none Pain mgmt: Tylenol Code status: DNR Plan discussed with Dr. Archer and Dr. Jessica Segundo MD PGY1 Attending Provider Attestation/Addendum I, Fawn Lopez DO, attest that I was physically present for the del cid portions of the service and evaluated the patient with the resident and I reviewed and discussed the case with the resident and agree with the resident's findings and plans of care as documented above Patient seen and evaluated this AM. No acute events overnight. Patient remains on blow-by. Rhonchi appears to have much improved. Sputum cultures growing GPC, GPR and GNR. Will f/u with final cultures and sensitivities. Patient has had previous hx of ESBL E.coli in sputum. Continue wtih vancomycin and zosyn. Pending MRSA nares. Will DC vanco if negative. Continue with chest PT and mucolytics
[2025-05-31] MEDS: POT PHOS 15 mMol in NS 250 ML 15 MMOL/250 ML BAG 62.5 MMOL IV (08:38)
[2025-05-31] MEDS: POTASSIUM CHL 10 mEq IVPB 10 MEQ/100 ML BAG 100 MEQ IV (08:38)
[2025-05-31] MEDS: Magnesium Sulfate 2 GM Ivpb 2 GM/50 ML BAG IV (08:38)
--- NOTE | 2025-05-31 09:51 | PC.DIETICIAN ---
Nutrition prescription Jevity 1.2 at 45 ml/hr via PEG tube by pump. Advance 10 ml every 8 hrs to goal rate of 65 ml/hr x 24 hrs. If no IV fluids, water flushes of 35 ml/hr (or per MD).
--- NOTE | 2025-05-31 10:20 | PC.SS ---
Patient Demetrio Monreal is [place] 54 year old male admitted for Septic Shock 2/2 PNA. SS contacted patient's daughter, Liliam Chadwick who reports is patient's surrogate decision maker [phone]. Patient has been in the subacute for 5 years. Patient is not alert and oriented and is trach and peg. Liliam reports when patient is medically cleared patient will return back to Subacute. SS will stand by for further needs. Discharge Plan-Subacute Next of kin: Daughter, Liliam Chadwick
--- NOTE | 2025-05-31 10:57 | PC.SS ---
SS follow up note; Patient is an ICU downgrade, Pending blood, urine, sputum cultures. Patient will return back to Subacute when medically cleared.
[2025-05-31] MEDS: VANCOMYCIN/WATER 1GM IVPB 200 ML IV ×2 (14:28→22:34)
--- NOTE | 2025-05-31 17:13 | XR_ITS ---
Examination: AP chest single view TECHNIQUE: AP upright portable chest single view Date and time: May 31, 2025 1720 hours INDICATIONS: New onset fever today. FINDINGS: Diffuse left lung and mild right base pneumonia Normal heart size Tracheostomy tube tip 6.8 cm above josue IMPRESSION: Diffuse left lung and mild right base pneumonia
[2025-05-31] MEDS: IBUPROFEN TAB 400 MG TABLET PO (17:35)
[2025-05-31] MEDS: MIDODRINE 5 MG TABLET 10 MG GT (22:27)
[2025-06-01] VITALS (18 sets, daily range): BP systolic 100–135; BP diastolic 54–74; PULSE 72–100; RESP 15–26; TEMP 36.7–37.5; O2SAT 97–100; BMI 25.2
[2025-06-01] MEDS: ACETYLCYSTEINE SOL 20% 4 ML NEBU 3 ML INH ×6 (02:27→22:07)
[2025-06-01] MEDS: ALBUTEROL/IPRATROPIUM (Duoneb) RT SOL 3 ML NEBU INH ×6 (02:27→22:08)
--- NOTE | 2025-06-01 06:16 | ESPR_ITS ---
<Statement entered by Chris Ford MD - 06/02/25 06:38> Patient was examined and case was reviewed with team including attending physician. Note reviewed, I agree with most of its contents and agree with the patient's care. Chris Ford MD PGY-2 Documentation for date of: 06/01/25 Subjective Subjective Interval history: Patient developed fever yesterday of 102 not relieved with PO Tylenol or ibuprofen. Started IV Tylenol, now afebrile. Continues to be tachypneic 20s. Changed vancomycin to doxycycline to cover MRSA and atypicals. Patient evaluated at bedside. No acute changes to physical exam. Gave an update to patient's daughter Arlene ([phone]) over the phone. She was made aware of the diagnosis of pneumonia and management with antibiotics. She noted that she will discuss with the rest of her family decisions to make patient comfort care. No decision made at this time. Will update if any acute changes in management or prognosis. All questions answered at this time. Exam Vital Signs Temp Pulse Resp BP Pulse Ox O2 Del Method O2 Flow Rate 98.1 F 82 23 H 110/70 100 Trach Collar 8 06/01/25 04:00 06/01/25 04:00 06/01/25 04:00 06/01/25 04:00 06/01/25 04:00 05/31/25 16:35 06/01/25 02:29 FiO2 30 06/01/25 02:29 Narrative Exam General: No acute distress, not interactive HEENT: Normocephalic, atraumatic, normal hearing, moist oral mucosa, trach tube with blow by in place Lungs: Diffuse rhonchi (improved from yesterday). Symmetric air entry, no crackles or wheezes Heart: Normal S1 and S2, no S3 or S4 appreciated. Normal rate and regular rhythm, no murmurs, rubs gallops, or edema. Abdomen: Soft, non-distended Musculoskeletal: B/L UE and LE contractures, atrophic musculature throughout Skin: Skin is warm, dry, no rashes or lesions. Neurologic: Not responsive to verbal stimuli. Spontaneously opens eyes. Does not follow commands. Objective Labs 06/02/25 05:31 06/02/25 05:31 Labs: Laboratory Results - last 24 hr 05/31/25 05:18 WBC 22.8 H RBC 3.99 L Hgb 12.9 L Hct 38.1 L MCV 96 MCH 32.3 MCHC 33.9 RDW Std Deviation 42.9 Plt Count 185 Neut % (Auto) 88 H Lymph % (Auto) 4 L [place] % (Auto) 7 Eos % (Auto) 0 Baso % (Auto) 0 Neut # (Auto) 20.2 H Lymph # (Auto) 1.0 [place] # (Auto) 1.5 H Eos # (Auto) 0.0 Baso # (Auto) 0.0 Immature Gran # (Auto) 0.12 H Absolute Nucleated RBC 0.00 Immature Gran % 1 H Nucleated RBC % 0 Sodium 143 Potassium 3.5 D Chloride 108 H Carbon Dioxide 24.3 Anion Gap 11 BUN 9 Creatinine 0.5 L Estim Creat Clear Calc 163.4 eGFR > 60 BUN/Creatinine Ratio 18 Glucose 128 H D Calculated Osmolality 285 Calcium 9.4 Corrected Calcium 9.7 Phosphorus 2.1 L Magnesium 1.5 L Total Bilirubin 0.5 AST 21 ALT 20 Alkaline Phosphatase 87 Total Protein 6.2 Albumin 3.6 Globulin 2.6 Albumin/Globulin Ratio 1.4 Vancomycin Trough 10.3 H ABG Interpretation ABG results: 05/29/25 20:24 ABG pH 7.44 ABG pCO2 37 ABG pO2 86 ABG HCO3 25 ABG O2 Saturation 98 ABG Base Excess 1 Quality Measures Quality Measures none Assessment & Plan Assessment Current Active Medications: Generic Name Dose Route Start Last Admin Trade Name Freq PRN Reason Stop Dose Admin Acetaminophen 650 mg 05/30/25 11:09 Acetaminophen 325 Mg Tablet PO 06/29/25 11:08 Q6HR PRN Pain 1-3 Acetaminophen 650 mg 05/31/25 17:17 Acetaminophen 325 Mg Tablet PO 06/29/25 11:08 Q4HR PRN Fever>100.3 Acetylcysteine 3 ml 05/30/25 15:00 06/01/25 02:27 Acetylcysteine Johanne 20% 4 Ml Nebu INH 06/29/25 14:59 3 ml Q4HRRT NADINE Administration Albuterol/Ipratropium 3 ml 05/30/25 15:00 06/01/25 02:27 Albuterol/Ipratropium (Duoneb) Rt Johanne 3 Ml Nebu INH 06/29/25 14:59 3 ml Q4HRRT NADINE Administration Budesonide 1 mg 05/31/25 07:00 05/31/25 18:59 Budesonide Rt 0.5 Mg/2 Ml Nebu INH 06/30/25 06:59 1 mg BIDRT NADINE Administration Enoxaparin Sodium 40 mg 05/30/25 09:00 05/31/25 08:00 Enoxaparin Sod Inj 40 Mg/0.4 Ml Syringe SC 06/13/25 08:59 40 mg QDAY NADINE Administration Guaifenesin 100 mg 05/30/25 13:17 Guaifenesin Syrup 200 Mg/10 Ml Udc PO 06/29/25 13:16 QID PRN COUGH Protocol Cefepime HCl 2 gm/ Sodium 50 mls @ 100 mls/hr 05/30/25 04:00 05/31/25 21:31 Chloride IV 06/06/25 03:59 Infused Q8HR NADINE Infusion Vancomycin HCl 200 mls @ 120 mls/hr 05/31/25 14:00 05/31/25 22:34 Vancomycin/Water 1gm Ivpb IV 06/07/25 13:59 120 mls/hr Q8HR NADINE Administration Acetaminophen 1,000 mg in 100 mls @ 250 mls/hr 05/31/25 19:00 Ofirmev Inj IV 06/01/25 12:23 Q6HR PRN fever >100.3 Ibuprofen 400 mg 05/31/25 17:17 05/31/25 17:35 Ibuprofen Tab 400 Mg Tablet PO 06/30/25 17:13 400 mg Q6HR PRN Administration Pain(4-10) Or Fever > 100.3 Midodrine 10 mg 05/30/25 08:00 05/31/25 22:27 Midodrine 5 Mg Tablet GT 06/29/25 07:59 10 mg Q8HR NADINE Administration Pharmacy Consult 1 each 05/30/25 09:00 Vancomycin Pharmacy To Dose 1 Each Each IV 06/29/25 08:59 QDAY PRN CONSULT Plan # Septic shock - resolved # Hospital associated pneumonia Initially presented from subacute long-term care with fever and tachycardia, Tmax 103.7 Admitted to ICU for pressor requirement. Given 3 L IVF, methylprednisolone 125 mg IV x 1 given Levophed in ICU. Now off pressors, maintaining MAP > 65 with Midodrine q8h Diffuse rhonchi appreciated on physical exam Initial leukocytosis of 27.8 - now downtrending COVID, RSV, flu, group A strep negative CXR showed right base pneumonia, UA negative for UTI Patient had fever Tmax 102 overnight, not relieved with PO Tylenol or Ibuprofen. Started Tylenol IV 1g q6h PRN fever - now afebrile. Blood cx NGTD at 48 hours. MRSA screen negative. Sputum gram stain showed gram positive rods, gram negative rods, gram positive cocci. Hx ESBL Organisms previously grown from sputum: Proteus mirabilis, Providencia rettgeri, Citrobacter koseri, Ecoli, Acinetobacter Iwoffi Organisms previously grown from blood: Group B strep, Gram positive cocci Organisms previously grown from urine: Enterococcus faecalis Plan: - Midodrine 10 mg GT q8h PRN (for sBP <100) - DuoNebs q4h, aiway suction BID, chest physiotherapy w/ vest daily, Budesonide TID, Mucomyst q4h, Guaifenesin QID - Cefepime 2 g- IV q8h (05/29 - ) - D/C Vancomycin - Start Doxycycline 100 mg IV BID (06/01 - ) for atypical coverage - Tylenol IV 1 g q6h PRN fever - Pending urine, sputum cultures # Hypotension No longer requiring pressors Plan: - Continue Midodrine 10 mg GT q8h PRN (for sBP <100) # Normocytic anemia Plan: - CTM with daily CBC # Hyperglycemia 1 episode, no history of diabetes Plan: - CTM with daily CMP # Hypophosphatemia # Hypomagnesemia Plan: - Replete as needed # Chronic encephalopathy # Chronic vegetative state # Chronic traumatic and anoxic brain injury Plan: - No acute intervention indicated - Artificial tears # Chronic respiratory failure # Chronic tracheostomy Plan: - Continue with blow-by # Chronic PEG tube Plan: - Continue PEG tube feeds - Consulted yard inspector, appreciate recs # Chronic upper and lower limb contractures Plan: - No intervention indicated # Hypertension Plan: - Hold home antihypertensives at this time given soft BP Checklist Dispo: Continued management of HAP, pending culture results Diet: PEG tube feeds Bowel Reg: none VTE ppx: Lovenox 40 mg daily GI ppx: none Pain mgmt: Tylenol Code status: DNR Plan discussed with Dr. Archer and Dr. Jessica Segundo MD PGY1 Attending Provider Attestation/Addendum I, Fawn Lopez DO, attest that I was physically present for the del cid portions of the service and evaluated the patient with the resident and I reviewed and discussed the case with the resident and agree with the resident's findings and plans of care as documented above Patient seen and evaluated this AM. Patient had fevers overnight. However, leukocytosis downtrending. MRSA negative, will switch vancomycin to doxy, continue wtih cefepime. He contineus to have scattered rhonchi, but much improved. Continue with chest PT and mucolytics. Pending final cultures and sensitivities of sputum.
[2025-06-01] MEDS: CEFEPIME INJ 2 GM in SODIUM CHLORIDE 0.9% (Popper) 50 ML IV ×3 (06:20→21:43)
[2025-06-01] MEDS: MIDODRINE 5 MG TABLET 10 MG GT (06:25)
[2025-06-01] MEDS: BUDESONIDE RT 0.5 MG/2 ML NEBU 1 MG INH ×2 (06:33→18:27)
[2025-06-01] MEDS: VANCOMYCIN/WATER 1GM IVPB 200 ML IV (06:57)
[2025-06-01] MEDS: ENOXAPARIN SOD INJ 40 MG/0.4 ML SYRINGE SC (08:16)
--- NOTE | 2025-06-01 08:30 | PC.NURSE ---
AT TIME OF SHIFT CHANGE [place] FEEDIN FLUSH 621.
[2025-06-01 08:58] LABS: Basophils # (Auto) 0.0 Thou/mm3 (0.0-0.2); Basophils % (Auto) 0 % (0-2.5); Eosinophils # (Auto) 0.0 Thou/mm3 (0.0-0.5); Eosinophils % (Auto) 0 % (0-10); Hematocrit 34.3 % (41.0-53.0); Hemoglobin 11.6 g/dL (13.5-16.0); Immature Granulocytes Auto 0.04 Thou/mm3 (0.00-0.00); Lymphocytes # (Auto) 1.9 Thou/mm3 (1.0-4.8); Lymphocytes % (Auto) 16 % (10-50); Mean Corpuscular HGB Conc 33.8 g/dl (31.0-37.0); Mean Corpuscular Hemoglobin 32.4 pg (25.0-35.0); Mean Corpuscular Volume 96 fL (80-100); Monocytes # (Auto) 0.9 Thou/mm3 (0.0-0.8); Monocytes % (Auto) 8 % (0-12); Neutrophils # (Auto) 9.2 Thou/mm3 (1.8-7.7); Neutrophils % (Auto) 76 % (37-80); Nucleated Red Blood Cell # 0.00 Thou/mm3 (0.00-0.00); Nucleated Red Blood Cell % 0 /100 WBC (0); Platelet Count 194 Thou/mm3 (140-440); RDW Standard Deviation 44.3 fL (35.1-43.9); Red Blood Count 3.58 Miln/mm3 (4.50-5.90); White Blood Count 12.2 Thou/mm3 (3.8-10.6)
[2025-06-01 09:15] LABS: Alanine Aminotransferase 16 U/L (10-49); Albumin, Serum 3.1 gm/dL (3.5-5.0); Albumin/Globulin Ratio 1.3 (1.2-2.2); Alkaline Phosphatase 74 U/L (46-116); Anion Gap 9 (7-16); Aspartate Amino Transferase 21 U/L (0-34); BUN/Creatinine Ratio 20 Ratio (12-20); Bilirubin,Total 0.5 mg/dL (0.3-1.2); Blood Urea Nitrogen 10 mg/dL (9-23); Calcium 9.2 mg/dL (8.3-10.6); Calcium (Corrected) 9.9 mg/dL (8.5-10.1); Carbon Dioxide 25.9 mMol/L (20.0-31.0); Chloride 107 mMol/L (98-107); Creatinine (Component) 0.5 mg/dL (0.6-1.3); Estimated Creatinine Clearance 163.4 mL/min (>60); Globulin 2.3 gm/dL (2.3-3.5); Glucose 127 mg/dL (74-106); Magnesium 1.4 mg/dL (1.6-2.6); Osmolality,Calculated 284 (275-295); Phosphorous 2.0 mg/dL (2.4-5.1); Potassium 3.2 mMol/L (3.4-5.1); Sodium 142 mMol/L (136-145); Total Protein 5.4 gm/dL (5.7-8.2); eGFR > 60 See Note
[2025-06-01] MEDS: DOXYCYCLINE INJ 100 MG in SODIUM CHLORIDE 0.9% (POP) 100 ML IV ×2 (09:58→20:04)
[2025-06-01] MEDS: POTASSIUM CHLORIDE 10% 20 MEQ/15 ML UDC GT (10:28)
[2025-06-01] MEDS: Magnesium Sulfate 2 GM Ivpb 2 GM/50 ML BAG IV (10:28)
[2025-06-01 14:50] LABS: Vancomycin,Trough 16.4 mcg/mL (5.0-10.0)
[2025-06-02] VITALS (9 sets, daily range): BP systolic 122–136; BP diastolic 66–88; PULSE 77–102; RESP 17–26; TEMP 36.1–37.6; O2SAT 94–100; BMI 25.2
[2025-06-02] MEDS: ACETYLCYSTEINE SOL 20% 4 ML NEBU 3 ML INH ×4 (02:10→15:09)
[2025-06-02] MEDS: ALBUTEROL/IPRATROPIUM (Duoneb) RT SOL 3 ML NEBU INH ×4 (02:10→15:09)
[2025-06-02] MEDS: CEFEPIME INJ 2 GM in SODIUM CHLORIDE 0.9% (Popper) 50 ML IV (05:39)
[2025-06-02 06:07] LABS: Basophils # (Auto) 0.0 Thou/mm3 (0.0-0.2); Basophils % (Auto) 0 % (0-2.5); Eosinophils # (Auto) 0.1 Thou/mm3 (0.0-0.5); Eosinophils % (Auto) 0 % (0-10); Hematocrit 36.1 % (41.0-53.0); Hemoglobin 12.4 g/dL (13.5-16.0); Immature Granulocytes Auto 0.04 Thou/mm3 (0.00-0.00); Lymphocytes # (Auto) 1.3 Thou/mm3 (1.0-4.8); Lymphocytes % (Auto) 11 % (10-50); Mean Corpuscular HGB Conc 34.3 g/dl (31.0-37.0); Mean Corpuscular Hemoglobin 32.1 pg (25.0-35.0); Mean Corpuscular Volume 94 fL (80-100); Monocytes # (Auto) 1.1 Thou/mm3 (0.0-0.8); Monocytes % (Auto) 9 % (0-12); Neutrophils # (Auto) 10.1 Thou/mm3 (1.8-7.7); Neutrophils % (Auto) 80 % (37-80); Nucleated Red Blood Cell # 0.00 Thou/mm3 (0.00-0.00); Nucleated Red Blood Cell % 0 /100 WBC (0); Platelet Count 183 Thou/mm3 (140-440); RDW Standard Deviation 41.6 fL (35.1-43.9); Red Blood Count 3.86 Miln/mm3 (4.50-5.90); White Blood Count 12.7 Thou/mm3 (3.8-10.6)
[2025-06-02 06:40] LABS: Alanine Aminotransferase 17 U/L (10-49); Albumin, Serum 3.3 gm/dL (3.5-5.0); Albumin/Globulin Ratio 1.4 (1.2-2.2); Alkaline Phosphatase 76 U/L (46-116); Anion Gap 10 (7-16); Aspartate Amino Transferase 22 U/L (0-34); BUN/Creatinine Ratio 13 Ratio (12-20); Bilirubin,Total 0.4 mg/dL (0.3-1.2); Blood Urea Nitrogen < 5 mg/dL (9-23); Calcium 9.3 mg/dL (8.3-10.6); Calcium (Corrected) 9.9 mg/dL (8.5-10.1); Carbon Dioxide 25.4 mMol/L (20.0-31.0); Chloride 103 mMol/L (98-107); Creatinine (Component) 0.4 mg/dL (0.6-1.3); Estimated Creatinine Clearance 204.3 mL/min (>60); Globulin 2.4 gm/dL (2.3-3.5); Glucose 157 mg/dL (74-106); Magnesium 1.6 mg/dL (1.6-2.6); Osmolality,Calculated 275 (275-295); Phosphorous 2.7 mg/dL (2.4-5.1); Potassium 3.6 mMol/L (3.4-5.1); Sodium 138 mMol/L (136-145); Total Protein 5.7 gm/dL (5.7-8.2); eGFR > 60 See Note
[2025-06-02] MEDS: BUDESONIDE RT 0.5 MG/2 ML NEBU 1 MG INH (06:46)
--- NOTE | 2025-06-02 07:59 | PD.RESPRO ---
Documentation for date of: 06/02/25 Exam Vital Signs Temp Pulse Resp BP Pulse Ox O2 Del Method O2 Flow Rate 99.4 F 81 21 H 136/83 H 99 Blow-by 6 06/02/25 04:00 06/02/25 06:47 06/02/25 06:47 06/02/25 04:00 06/02/25 06:47 06/02/25 04:00 06/02/25 06:47 FiO2 28 06/02/25 06:47 Narrative Exam General: No acute distress, not interactive HEENT: Normocephalic, atraumatic, normal hearing, moist oral mucosa, trach tube with blow by in place Lungs: Diffuse rhonchi (improved from yesterday). Symmetric air entry, no crackles or wheezes Heart: Normal S1 and S2, no S3 or S4 appreciated. Normal rate and regular rhythm, no murmurs, rubs gallops, or edema. Abdomen: Soft, non-distended Musculoskeletal: B/L UE and LE contractures, atrophic musculature throughout Skin: Skin is warm, dry, no rashes or lesions. Neurologic: Not responsive to verbal stimuli. Spontaneously opens eyes. Does not follow commands. Objective Labs 06/02/25 05:31 06/02/25 05:31 Labs: Laboratory Results - last 24 hr 06/01/25 06/01/25 06/02/25 07:50 13:15 05:31 WBC 12.2 H D 12.7 H RBC 3.58 L 3.86 L Hgb 11.6 L 12.4 L Hct 34.3 L 36.1 L MCV 96 94 MCH 32.4 32.1 MCHC 33.8 34.3 RDW Std Deviation 44.3 H 41.6 Plt Count 194 183 Neut % (Auto) 76 80 Lymph % (Auto) 16 11 [place] % (Auto) 8 9 Eos % (Auto) 0 0 Baso % (Auto) 0 0 Neut # (Auto) 9.2 H 10.1 H Lymph # (Auto) 1.9 1.3 [place] # (Auto) 0.9 H 1.1 H Eos # (Auto) 0.0 0.1 Baso # (Auto) 0.0 0.0 Immature Gran # (Auto) 0.04 H 0.04 H Absolute Nucleated RBC 0.00 0.00 Immature Gran % 0 0 Nucleated RBC % 0 0 Sodium 142 138 Potassium 3.2 L 3.6 Chloride 107 103 Carbon Dioxide 25.9 25.4 Anion Gap 9 10 BUN 10 < 5 L Creatinine 0.5 L 0.4 L Estim Creat Clear Calc 163.4 204.3 eGFR > 60 > 60 BUN/Creatinine Ratio 20 13 Glucose 127 H 157 H Calculated Osmolality 284 275 Calcium 9.2 9.3 Corrected Calcium 9.9 9.9 Phosphorus 2.0 L 2.7 Magnesium 1.4 L 1.6 Total Bilirubin 0.5 0.4 AST 21 22 ALT 16 17 Alkaline Phosphatase 74 76 Total Protein 5.4 L 5.7 Albumin 3.1 L D 3.3 L Globulin 2.3 2.4 Albumin/Globulin Ratio 1.3 1.4 Vancomycin Trough 16.4 H ABG Interpretation ABG results: 05/29/25 20:24 ABG pH 7.44 ABG pCO2 37 ABG pO2 86 ABG HCO3 25 ABG O2 Saturation 98 ABG Base Excess 1 Quality Measures Quality Measures none Assessment & Plan Assessment Current Active Medications: Generic Name Dose Route Start Last Admin Trade Name Freq PRN Reason Stop Dose Admin Acetaminophen 650 mg 06/01/25 20:49 Acetaminophen Johanne 325 Mg/10 Ml [facility] [place] 06/29/25 11:08 Q6HR PRN Pain 1-3 Acetaminophen 650 mg 06/01/25 20:50 Acetaminophen Johanne 325 Mg/10 Ml [facility] GT 06/29/25 11:08 Q4HR PRN Fever>100.3 Acetylcysteine 3 ml 05/30/25 15:00 06/02/25 06:46 Acetylcysteine Johanne 20% 4 Ml Nebu INH 06/29/25 14:59 3 ml Q4HRRT NADINE Administration Albuterol/Ipratropium 3 ml 05/30/25 15:00 06/02/25 06:47 Albuterol/Ipratropium (Duoneb) Rt Johanne 3 Ml Nebu INH 06/29/25 14:59 3 ml Q4HRRT NADINE Administration Artificial Tears 0 drop 06/01/25 10:50 Artificial Tears 225 Drop/15 Ml Btl BOTH EYES 07/01/25 10:49 PRN PRN TO KEEP EYES MOIST Budesonide 1 mg 05/31/25 07:00 06/02/25 06:46 Budesonide Rt 0.5 Mg/2 Ml Nebu INH 06/30/25 06:59 1 mg BIDRT NADINE Administration Enoxaparin Sodium 40 mg 05/30/25 09:00 06/01/25 08:16 Enoxaparin Sod Inj 40 Mg/0.4 Ml Syringe SC 06/13/25 08:59 40 mg QDAY NADINE Administration Guaifenesin 100 mg 06/01/25 20:49 Guaifenesin Syrup 200 Mg/10 Ml Udc GT 06/29/25 13:16 QID PRN COUGH Protocol Cefepime HCl 2 gm/ Sodium 50 mls @ 100 mls/hr 05/30/25 04:00 06/02/25 05:39 Chloride IV 06/06/25 03:59 100 mls/hr Q8HR NADINE Administration Doxycycline Hyclate 100 mg/ 100 mls @ 100 mls/hr 06/01/25 09:30 06/01/25 20:04 Sodium Chloride IV 06/08/25 09:29 100 mls/hr BID NADINE Administration Ibuprofen 400 mg 06/01/25 20:50 Ibuprofen Susp 100 Mg/5 Ml [facility] 06/30/25 17:13 Q6HR PRN Pain(4-10) Or Fever > 100.3 Midodrine 10 mg 06/01/25 14:24 Midodrine 5 Mg Tablet GT 06/29/25 07:59 Q8HR PRN sBP <100 Plan # Septic shock - resolved # Hospital associated pneumonia Initially presented from subacute long-term care with fever and tachycardia, Tmax 103.7 Admitted to ICU for pressor requirement. Given 3 L IVF, methylprednisolone 125 mg IV x 1 given Levophed in ICU. Now off pressors, maintaining MAP > 65 with Midodrine q8h Diffuse rhonchi appreciated on physical exam Initial leukocytosis of 27.8 - now downtrending COVID, RSV, flu, group A strep negative CXR showed right base pneumonia, UA negative for UTI Patient had fever Tmax 102 overnight, not relieved with PO Tylenol or Ibuprofen. Started Tylenol IV 1g q6h PRN fever - now afebrile. Blood cx NGTD at 48 hours. MRSA screen negative. Urine cx negative. Sputum culture grew Proteus mirabilis and Ecoli. Both sensitive to Cefepime Sputum gram stain showed gram positive rods, gram negative rods, gram positive cocci. Hx ESBL Organisms previously grown from sputum: Proteus mirabilis, Providencia rettgeri, Citrobacter koseri, Ecoli, Acinetobacter Iwoffi Organisms previously grown from blood: Group B strep, Gram positive cocci Organisms previously grown from urine: Enterococcus faecalis Plan: - Midodrine 10 mg GT q8h PRN (for sBP <100) - DuoNebs q4h, aiway suction BID, chest physiotherapy w/ vest daily, Budesonide TID, Mucomyst q4h, Guaifenesin QID - Cefepime 2 g- IV q8h (05/29 - 06/04) x 7 days - D/C Doxycycline 100 mg IV BID (06/01 - ) for atypical coverage - Tylenol + Ibuprofen PO for fever --> if still fevering --> Tylenol IV 1 g q6h PRN fever # Hypotension No longer requiring pressors Plan: - Continue Midodrine 10 mg GT q8h PRN (for sBP <100) # Normocytic anemia Plan: - CTM with daily CBC # Hyperglycemia 1 episode, no history of diabetes Plan: - CTM with daily CMP # Hypophosphatemia # Hypomagnesemia Plan: - Replete as needed # Chronic encephalopathy # Chronic vegetative state # Chronic traumatic and anoxic brain injury Plan: - No acute intervention indicated - Artificial tears # Chronic respiratory failure # Chronic tracheostomy Plan: - Continue with blow-by # Chronic PEG tube Plan: - Continue PEG tube feeds - Consulted [employer] dean, appreciate recs # Chronic upper and lower limb contractures Plan: - No intervention indicated # Hypertension Plan: - Hold home antihypertensives at this time given soft BP Checklist Dispo: Continued management of HAP Diet: PEG tube feeds Bowel Reg: none VTE ppx: Lovenox 40 mg daily GI ppx: none Pain mgmt: Tylenol Code status: DNR Plan discussed with Dr. Sanchez and Dr. Jessica Segundo MD PGY1
[2025-06-02] MEDS: ENOXAPARIN SOD INJ 40 MG/0.4 ML SYRINGE SC (09:25)
[2025-06-02] MEDS: DOXYCYCLINE INJ 100 MG in SODIUM CHLORIDE 0.9% (POP) 100 ML IV (09:26)
--- NOTE | 2025-06-02 10:03 | PC.SS ---
SS follow up note; Patient might possibly discharge back to subacute today.
[2025-06-02] MEDS: cefTRIAXone 2 GM in SODIUM CHLORIDE 0.9% (Popper) 50 ML IV (11:25)
--- NOTE | 2025-06-02 12:01 | ESDS_ITS ---
<Statement entered by Fawn Lopez DO - 06/03/25 07:30> I, Fawn Lopez DO, attest that I was physically present for the del cid portions of the service and evaluated the patient with the resident and I reviewed and discussed the case with the resident and agree with the resident's findings and plans of care as documented above <Statement entered by Kellee Sanchez MD - 06/02/25 17:53> I discussed with and supervised the internal control manager physician who took care of this patient. I personally saw and examined the patient and discussed the assessment and plan with the entire medicine team, including my attending Dr. Lopez, I agree with most of the assessment and plan as documented below Kellee Sanchez M.D. PGY-3 Planned Discharge Date 06/02/25 DS: Providers Provider Date of admission: 05/30/25 00:08 Primary care physician: Physician No Primary/Family Admitting Provider: Jose Angel Cruz MD Attending Provider on Admission: Fawn Lopez DO Consults: 05/30/25 13:16 Referral Registered Dietitian Stat Comment: restart PEG tube feeds please 05/31/25 06:06 Referral Wound Care Routine Comment: Attending Provider on DC: Dr. Javan Lopez Discharging Provider: RESIDENT Remy DS: Diagnosis Problem List Completed Was Problem List Reviewed/Reconciled?: Yes Hospital Course Hospital Course Hospital course: Hospital Course Mr. Monreal is a 54 y/o male with PMH of traumatic and anoxic brain injury s/p tracheostomy and PEG tube who presented to the ED on 05/29 from subacute rehab facility with fever, tachycardia, tachypnea, hypotension, leukocytosis, and elevated lactic acid. Admitted to ICU for septic shock secondary to hospital-acquired pneumonia requiring pressor support despite adequate fluid resuscitation. He was started on cefepime and vancomycin per ID recommendations and breathing treatments. Patient was downgraded to the floor when he was able to maintain appropriate MAP > 65 off of Levophed. Sputum culture grew Proteus mirabilis and E. coli, sensitive to ceftriaxone. Blood cultures, urine culture were negative, MRSA screen negative. Patient will continue continue ceftriaxone 2 g IV daily for a total of 4 more days upon discharge (06/02 - 06/05). Patient stable and medically cleared for discharge to subacute rehab facility. Plan discussed with Dr. Lashon Sanchez, Dr. Lopez, and Dr. Ham. Diagnoses # Septic shock - resolved # Proteus Mirabilis and E.coli pneumonia # Normocytic anemia # Chronic encephalopathy # Chronic vegetative state # Chronic traumatic and anoxic brain injury # Chronic respiratory failure # Chronic tracheostomy # Chronic PEG tube # Chronic upper and lower limb contractures Discharge Instructions Continue Ceftriaxone 2 mg IV daily for 4 more days (06/02-06/05). F/U with PCP Ann Segundo MD PGY1 Time Spent with Patient Time attestation: Total time spent providing and/or coordinating discharge services: Time spent: Greater than 30 minutes Exam Vital Signs Temp Pulse Resp BP Pulse Ox O2 Del Method O2 Flow Rate 97.0 F 96 23 H 122/71 99 Trach Collar 6 06/02/25 08:00 06/02/25 11:44 06/02/25 10:45 06/02/25 08:00 06/02/25 10:45 06/02/25 08:00 06/02/25 10:45 FiO2 28 06/02/25 10:45 Narrative Exam General: No acute distress, not interactive HEENT: Normocephalic, atraumatic, normal hearing, moist oral mucosa, trach tube with blow by in place Lungs: Slight rhonchi in b/l lower lung smith (improved from previous exams). Symmetric air entry, no crackles or wheezes Heart: Normal S1 and S2, no S3 or S4 appreciated. Normal rate and regular rhythm, no murmurs, rubs gallops, or edema. Abdomen: Soft, non-distended Musculoskeletal: B/L UE and LE contractures, atrophic musculature throughout Skin: Skin is warm, dry, no rashes or lesions. Neurologic: Not responsive to verbal stimuli. Spontaneously opens eyes. Does not follow commands. Discharge Plan Plan Patient Disposition: Xfer Longterm Acute w/in Hosp Patient condition on transfer: Stable Prescriptions/Referrals Prescriptions/Med Rec: New ceftriaxone 2 gram recon soln 2 g IV Q24H 4 Days Continued sennosides [Senna Laxative] 8.6 mg Tablet 8.6 mg G-tube BID Label Comments: for constipation acetaminophen 325 mg Tablet 650 mg G-tube Q6HR PRN (Reason: Pain) Label Comments: not to exceed 3 gm of tylenol in 24 hours from all sources polyethylene glycol 3350 17 gram Powder In Packet 17 g G-tube QDAY PRN (Reason: No Bowel Movement) Rx Instructions: Administer as needed if 2nd round bowel protocol ineffective. ondansetron HCl 4 mg Tablet 4 mg G-tube Q6HR PRN (Reason: Nausea Or Vomiting) magnesium hydroxide [Milk of Magnesia] 400 mg/5 mL Suspension 30 ml G-tube PRN PRN (Reason: Constipation) Label Comments: CONC: 400MG/5ML Rx Instructions: Give 2400mg/30ml on the 5th shift if no BM bisacodyl [Dulcolax (bisacodyl)] 10 mg Suppository 10 mg WA PRN PRN (Reason: Constipation) Rx Instructions: Administer as needed on 6th shift, if MOM ineffective. losartan 25 mg Tablet 25 mg G-tube QDAY Label Comments: for HTN Rx Instructions: hold if SBP <110 Fleet Enema 19-7 gram/118 mL Enema 133 ml WA PRN PRN (Reason: Constipation) Label Comments: If Dulcolax is ineffective on 3rd day/7th shift give Fleets enema per Bowel Management Protocol. Notify MD if no results from enema. Ear Wax Removal Drops 6.5 % Drops 5 drp otic (ear) Q61D Label Comments: 5 drops per ear at first med pass of shift. Then irrigate ears with NS at next med pass of each shift x 4 days for wax build up. *Start on the of the month, every two months. Ear Wax Removal Drops 6.5 % Drops 5 drp otic (ear) Q61D Label Comments: 5 drops per ear at first med pass of shift. Then irrigate ears with NS at next med pass of each shift x 4 days for wax build up. *Start on the of the month, every two months. Ear Wax Removal Drops 6.5 % Drops 5 drp otic (ear) Q61D Label Comments: 5 drops per ear at first med pass of shift. Then irrigate ears with NS at next med pass of each shift x 4 days for wax build up. *Start on the of the month, every two months. Ear Wax Removal Drops 6.5 % Drops 5 drp otic (ear) Q61D Label Comments: 5 drops per ear at first med pass of shift. Then irrigate ears with NS at next med pass of each shift x 4 days for wax build up. *Start on the of the month, every two months. Ear Wax Removal Drops 6.5 % Drops 5 drp otic (ear) Q61D Rx Instructions: 5 drops per ear at first med pass of shift. Then irrigate ears with NS at next med pass of each shift x 4 days for wax build up. *Start on the of the month, every two months. Ear Wax Removal Drops 6.5 % Drops 5 drp otic (ear) Q61D Label Comments: 5 drops per ear at first med pass of shift. Then irrigate ears with NS at next med pass of each shift x 4 days for wax build up. *Start on the of the month, every two months. Ear Wax Removal Drops 6.5 % Drops 5 drp otic (ear) Q61D Rx Instructions: 5 drops per ear at first med pass of shift. Then irrigate ears with NS at next med pass of each shift x 4 days for wax build up. *Start on the of the month, every two months. Ear Wax Removal Drops 6.5 % Drops 5 drp otic (ear) Q61D Rx Instructions: 5 drops per ear at first med pass of shift. Then irrigate ears with NS at next med pass of each shift x 4 days for wax build up. *Start on the of the month, every two months. alum-mag hydroxide-simeth [Ivanna-Lanta] 200-200-20 mg/5 mL Suspension 30 ml PO QID PRN (Reason: Upset Stomach/Indigestion) propranolol 20 mg Tablet 20 mg G-tube TID Label Comments: for HTN (BBW) Rx Instructions: hold if SBP <100 or HR <60 midodrine 10 mg Tablet 10 mg G-tube Q8HR Label Comments: for hypotension Rx Instructions: hold if SBP >110 artificial tear([id number]) [GenTeal Tears Moderate] 0.1-0.3-0.2 % Drops 2 drp Both eyes BID Label Comments: FOR DRYNESS Atrovent HFA 17 mcg/actuation Hfa Aerosol Inhaler 2 puff INH Q4HRRT PRN (Reason: SOB, wheezing) dexlansoprazole [Dexilant] 30 mg Capsule,Biphase Delayed Releas 30 mg G-tube QDAY Label Comments: for GERD [place] 3-6-9 1,200 mg Capsule 1,200 mg G-tube QDAY Label Comments: for supplement [id number] fum-folic ac 7.5 mg iron-400 mcg Tablet 1 ea G-tube QDAY Label Comments: for supplement acetaminophen 325 mg tablet 325 mg G-tube Q4HR PRN (Reason: Fever>100.0) 7 Days 0RF Label Comments: Not to exceed 3 grams of Tylenol in 24 hours from all sources Rx Instructions: Give two tabs of 325mg to equal 650mg No Action acetylcysteine 200 mg/mL (20 %) solution 600 mg INH Q8HR 30 Days Qty: 90 0RF cefTRIAXone 2 gm/NS 100 ml [Rocephin 2gm/NS 100 ml] 2 GM Sodium Chloride 0.9% [Ns] 100 ML 100 mls/hr IV QDAY Reason for use: For Pneumonia Ordered By: Noah Ham MD Last Taken: Unknown Label Comments: Give 2gm IV x 4 days to complete a total of 5 doses. for PNA albuterol sulfate [Ventolin HFA] 90 mcg/actuation HFA aerosol inhaler 2 puff INH Q4HRRT PRN (Reason: Shortness Of Breath) 61 Days Qty: 6.7 0RF Referrals: No Primary/Family,Physician [Primary Care Provider] - Patient/Caregiver Discharge Instructions Other Discharge Activity Instructions:: Continue Ceftriaxone 2 mg IV daily for 4 more days (06/02-06/05). F/U with PCP Print Language: Faroese Stand Alone Forms: Caitlin Award Info., Patient Portal Info Letter Discharge Order Discharge Orders: Discharge (Routine); Ordered 06/02/25 Ordered By: Ann Segundo Quality Discharge Quality Measures VTE prophylaxis
--- NOTE | 2025-06-02 12:10 | PC.SS ---
SS follow up note; SS contacted Subacute and spoke to Jessica, she informed SS that patient could discharge back to Subacute, Jessica provided Charge nurse contact number for report. SS notified patient's nurse.
--- NOTE | 2025-06-02 12:17 | PC.SS ---
SS follow up note; SS was informed by Team A that patient is able to discharge back to Subacute. SS contacted patient's nurse and patient's daughter, Liliam.
--- NOTE | 2025-06-02 12:49 | PC.NURSE ---
Spoke with nurse at Subacute in [facility], gave report on patient. Nurse stated she was going to call dr to make sure he's stable and will call this nurse back.
--- NOTE | 2025-06-02 13:35 | PC.NURSE ---
This nurse called and gave report to MILTON Jacobs in subacute here at [facility]. This nurse made the call at approx. [phone]
--- NOTE | 2025-06-02 13:42 | PC.NURSE ---
This nurse spoke with Dr. Segundo in regards to MILTON Jacobs request to D/C patient's arora catheter. Dr. Segundo said the request is no problem and she will put in the order.
--- NOTE | 2025-06-02 14:02 | PC.NURSE ---
Per order, this nurse D/C'd patient's arora catheter. There was output of 100 mL. Patient tolerated removal with no indication of discomfort.
--- NOTE | 2025-06-02 16:21 | PC.NURSE ---
Transferred patient to subacute and IVs went with patient. He has a 20 gauge on right forearm and 22 gauge on right hand. Both are saline locked.
== END 2025-06-02 15:50 | disposition skilled nursing facility (03) | DRG 720 ==
LOC: SERX 22:08 → SERHOLD 05-30 00:21 → S2SX 05-30 02:45 → S3NX 05-31 06:57
PROVIDERS: Internal Medicine; Student in an Organized Health Care Education/Training Program; Admitting Provider Internal Medicine; Emergency Provider Emergency Medicine; Visit Provider Internal Medicine
DX: A41.51 Sepsis due to Escherichia coli [E. coli] (principal); R65.21 Severe sepsis with septic shock; J18.9 Pneumonia, unspecified organism; Y95 Nosocomial condition; Z66 Do not resuscitate; Z93.1 Gastrostomy status; Z93.0 Tracheostomy status; J96.10 Chronic respiratory failure, unspecified whether with hypoxia or hypercapnia; R40.3 Persistent vegetative state; G93.1 Anoxic brain damage, not elsewhere classified; E83.42 Hypomagnesemia; E83.39 Other disorders of phosphorus metabolism; R73.9 Hyperglycemia, unspecified; D64.89 Other specified anemias; E87.20 Acidosis, unspecified; I10 Essential (primary) hypertension; J15.5 Pneumonia due to Escherichia coli; J45.909 Unspecified asthma, uncomplicated; Z51.5 Encounter for palliative care; Z87.820 Personal history of traumatic brain injury
CPT/HCPCS: 36415; 36600; 71045; 80053; 80202; 81001; 82248; 82550; 82803; 83605; 83735; 84100; 84145; 85025; 85652; 86140; 87040; 87081; 87634; 87651; 93225; 94640; 94664; 94667; 96361; 96365; 96366; 96375; 99284; A9270; J0692; J0696; J1650; J1885; J2919; J3370; J3373; J3375; J3475; J3480; J3490; J7030; J7050; J7120; J7999

== ENCOUNTER → 2025-07-06 13:02 | Inpatient (IN) | payer MEDICAID, SELFPAY ==
[2023-06-14] VITALS (11 sets, daily range): BP systolic 100–136; BP diastolic 54–78; PULSE 53–82; RESP 16–20; TEMP 36.1–36.6; O2SAT 97–100
[2023-06-14] MEDS: PROPRANOLOL 10 MG TABLET 20 MG GT ×3 (05:59→21:16)
[2023-06-14] MEDS: BORAGE GT (09:54)
[2023-06-14] MEDS: [UNRECOGNIZED DRUG - OTHER] GT (09:54)
[2023-06-14] MEDS: DEXLANSOPRAZOLE 30 MG GT (09:54)
[2023-06-14] MEDS: FLAX GT (09:54)
[2023-06-14] MEDS: LOSARTAN 25 MG TABLET GT (09:54)
[2023-06-14] MEDS: FISH OIL GT (09:54)
[2023-06-14] MEDS: SENNOSIDES 8.6 MG TABLET GT ×2 (09:55→20:33)
[2023-06-14] MEDS: MAGNESIUM HYDROXIDE 400 MG/5 ML ORAL.SUSP 400 ML PO (10:00)
[2023-06-14] MEDS: MULTIVIT-MIN/IRON FUM/FOLIC AC 1 EACH TABLET GT (10:00)
--- NOTE | 2023-06-14 14:27 | PC.SS ---
Room visit: Resident is laying in bed with TV on with head of the bed elevated with call light properly placed. Resident is well groomed not showing any signs of distress. Resident has no changes in mood or behavior, resident to remain in current care as there is no changes in care or condition. Resident will continue to receive daily room visits from [facility] and will be offered any support needed.
[2023-06-14] MEDS: TEARS BOTH EYES (20:33)
[2023-06-14] MEDS: [UNRECOGNIZED DRUG - OTHER] BOTH EYES (20:33)
[2023-06-15] VITALS (10 sets, daily range): BP systolic 96–123; BP diastolic 63–77; PULSE 58–78; RESP 17–21; TEMP 36.2–36.4; O2SAT 97–100
[2023-06-15] MEDS: PROPRANOLOL 10 MG TABLET 20 MG GT ×2 (05:56→14:07)
[2023-06-15] MEDS: [UNRECOGNIZED DRUG - OTHER] BOTH EYES ×2 (09:25→20:16)
[2023-06-15] MEDS: TEARS BOTH EYES ×2 (09:25→20:16)
[2023-06-15] MEDS: DEXLANSOPRAZOLE 30 MG GT (09:25)
[2023-06-15] MEDS: LOSARTAN 25 MG TABLET GT (09:25)
[2023-06-15] MEDS: FLAX GT (09:26)
[2023-06-15] MEDS: FISH OIL GT (09:26)
[2023-06-15] MEDS: BORAGE GT (09:26)
[2023-06-15] MEDS: MULTIVIT-MIN/IRON FUM/FOLIC AC 1 EACH TABLET GT (09:26)
[2023-06-15] MEDS: SENNOSIDES 8.6 MG TABLET GT ×2 (09:26→20:16)
[2023-06-15] MEDS: [UNRECOGNIZED DRUG - OTHER] GT (09:26)
[2023-06-16] VITALS (12 sets, daily range): BP systolic 97–131; BP diastolic 57–77; PULSE 54–93; RESP 18–20; TEMP 36.3–36.6; O2SAT 96–98
[2023-06-16] MEDS: PROPRANOLOL 10 MG TABLET 20 MG GT ×3 (05:32→21:14)
[2023-06-16] MEDS: FISH OIL GT (08:17)
[2023-06-16] MEDS: FLAX GT (08:17)
[2023-06-16] MEDS: DEXLANSOPRAZOLE 30 MG GT (08:17)
[2023-06-16] MEDS: BORAGE GT (08:17)
[2023-06-16] MEDS: [UNRECOGNIZED DRUG - OTHER] GT (08:17)
[2023-06-16] MEDS: MULTIVIT-MIN/IRON FUM/FOLIC AC 1 EACH TABLET GT (08:19)
[2023-06-16] MEDS: SENNOSIDES 8.6 MG TABLET GT ×2 (08:19→20:11)
[2023-06-16] MEDS: guaiFENesin Liq 100 MG/5 ML LIQUID GT (08:20)
[2023-06-16] MEDS: TEARS BOTH EYES ×2 (08:20→20:11)
[2023-06-16] MEDS: [UNRECOGNIZED DRUG - OTHER] BOTH EYES ×2 (08:20→20:11)
[2023-06-17] VITALS (11 sets, daily range): BP systolic 90–151; BP diastolic 57–85; PULSE 60–87; RESP 18–20; TEMP 36.2–36.8; O2SAT 91–98
[2023-06-17] MEDS: PROPRANOLOL 10 MG TABLET 20 MG GT ×3 (05:06→22:52)
[2023-06-17] MEDS: BORAGE GT (08:15)
[2023-06-17] MEDS: DEXLANSOPRAZOLE 30 MG GT (08:15)
[2023-06-17] MEDS: TEARS BOTH EYES ×2 (08:15→22:52)
[2023-06-17] MEDS: [UNRECOGNIZED DRUG - OTHER] GT (08:15)
[2023-06-17] MEDS: FISH OIL GT (08:15)
[2023-06-17] MEDS: [UNRECOGNIZED DRUG - OTHER] BOTH EYES ×2 (08:15→22:52)
[2023-06-17] MEDS: FLAX GT (08:15)
[2023-06-17] MEDS: MULTIVIT-MIN/IRON FUM/FOLIC AC 1 EACH TABLET GT (08:16)
[2023-06-17] MEDS: guaiFENesin Liq 100 MG/5 ML LIQUID GT (08:17)
[2023-06-17] MEDS: SENNOSIDES 8.6 MG TABLET GT ×2 (08:17→20:50)
--- NOTE | 2023-06-17 08:55 | PD.SAPROG ---
Progress Note - SubAcute DIAGNOSIS (1) Traumatic brain injury: Status: Acute SUBJECTIVE Fever:: none GI:: none Shortness of Breath:: none GI:: no complaints Pain:: none OBJECTIVE Most recent vital signs: Last Vital Signs Temp 97.2 F 06/23/23 05:50 Pulse 60 06/23/23 08:00 Resp 18 06/23/23 05:50 BP 95/59 L 06/23/23 08:00 Pulse Ox 100 06/23/23 05:50 O2 Del Method Blow-by 06/19/23 17:37 O2 Flow Rate 06/22/23 18:25 FiO2 35 06/22/23 18:25 Neurological:: awake Speech:: none Answers questions:: sometimes (Sometimes opens eyes to command.) Respiratory:: lungs clear Cardiovascular: RRR Abdomen: soft and nontender Extremities:: deformities Decubitus:: none Tracheostomy:: to blow by Feeding per:: G tube Complaints:: none ASSESSMENT & PLAN Assessment: Stable status. No improvement in cognitive function. Diagnosis and treatment reviewed. Prognosis poor. Plan: Current treatment continued as ongoing
[2023-06-18] VITALS (9 sets, daily range): BP systolic 97–162; BP diastolic 60–89; PULSE 52–87; RESP 17–20; TEMP 36.2–36.6; O2SAT 92–97
[2023-06-18] MEDS: PROPRANOLOL 10 MG TABLET 20 MG GT ×3 (07:21→21:14)
[2023-06-18] MEDS: TEARS BOTH EYES ×2 (09:36→20:12)
[2023-06-18] MEDS: [UNRECOGNIZED DRUG - OTHER] BOTH EYES ×2 (09:36→20:12)
[2023-06-18] MEDS: BORAGE GT (09:37)
[2023-06-18] MEDS: [UNRECOGNIZED DRUG - OTHER] GT (09:37)
[2023-06-18] MEDS: FLAX GT (09:37)
[2023-06-18] MEDS: LOSARTAN 25 MG TABLET GT (09:37)
[2023-06-18] MEDS: SENNOSIDES 8.6 MG TABLET GT ×2 (09:37→20:12)
[2023-06-18] MEDS: DEXLANSOPRAZOLE 30 MG GT (09:37)
[2023-06-18] MEDS: FISH OIL GT (09:37)
[2023-06-18] MEDS: MULTIVIT-MIN/IRON FUM/FOLIC AC 1 EACH TABLET GT (09:40)
[2023-06-19] VITALS (11 sets, daily range): BP systolic 94–133; BP diastolic 60–78; PULSE 48–82; RESP 16–20; TEMP 36.1–36.6; O2SAT 94–100
[2023-06-19] MEDS: PROPRANOLOL 10 MG TABLET 20 MG GT ×3 (05:49→21:25)
[2023-06-19] MEDS: [UNRECOGNIZED DRUG - OTHER] BOTH EYES ×2 (10:32→20:14)
[2023-06-19] MEDS: TEARS BOTH EYES ×2 (10:32→20:14)
[2023-06-19] MEDS: [UNRECOGNIZED DRUG - OTHER] GT (10:33)
[2023-06-19] MEDS: SENNOSIDES 8.6 MG TABLET GT ×2 (10:33→20:14)
[2023-06-19] MEDS: FLAX GT (10:33)
[2023-06-19] MEDS: FISH OIL GT (10:33)
[2023-06-19] MEDS: DEXLANSOPRAZOLE 30 MG GT (10:33)
[2023-06-19] MEDS: BORAGE GT (10:33)
[2023-06-19] MEDS: LOSARTAN 25 MG TABLET GT (10:33)
[2023-06-19] MEDS: MULTIVIT-MIN/IRON FUM/FOLIC AC 1 EACH TABLET GT (10:33)
[2023-06-20] VITALS (9 sets, daily range): BP systolic 102–129; BP diastolic 66–78; PULSE 56–86; RESP 18–20; TEMP 36.1–36.6; O2SAT 95–98
[2023-06-20] MEDS: PROPRANOLOL 10 MG TABLET 20 MG GT ×3 (05:45→21:27)
[2023-06-20] MEDS: TEARS BOTH EYES ×2 (09:31→20:48)
[2023-06-20] MEDS: [UNRECOGNIZED DRUG - OTHER] BOTH EYES ×2 (09:31→20:48)
[2023-06-20] MEDS: SENNOSIDES 8.6 MG TABLET GT ×2 (09:32→20:48)
[2023-06-20] MEDS: FLAX GT (09:32)
[2023-06-20] MEDS: FISH OIL GT (09:32)
[2023-06-20] MEDS: BORAGE GT (09:32)
[2023-06-20] MEDS: LOSARTAN 25 MG TABLET GT (09:32)
[2023-06-20] MEDS: MULTIVIT-MIN/IRON FUM/FOLIC AC 1 EACH TABLET GT (09:32)
[2023-06-20] MEDS: [UNRECOGNIZED DRUG - OTHER] GT (09:32)
[2023-06-20] MEDS: DEXLANSOPRAZOLE 30 MG GT (09:32)
[2023-06-21] VITALS (11 sets, daily range): BP systolic 111–129; BP diastolic 66–78; PULSE 58–82; RESP 16–22; TEMP 36.3–36.6; O2SAT 95–99
[2023-06-21] MEDS: PROPRANOLOL 10 MG TABLET 20 MG GT ×3 (06:10→21:19)
[2023-06-21] MEDS: [UNRECOGNIZED DRUG - OTHER] BOTH EYES ×2 (09:27→21:19)
[2023-06-21] MEDS: TEARS BOTH EYES ×2 (09:27→21:19)
[2023-06-21] MEDS: BORAGE GT (09:28)
[2023-06-21] MEDS: [UNRECOGNIZED DRUG - OTHER] GT (09:28)
[2023-06-21] MEDS: LOSARTAN 25 MG TABLET GT (09:28)
[2023-06-21] MEDS: FLAX GT (09:28)
[2023-06-21] MEDS: DEXLANSOPRAZOLE 30 MG GT (09:28)
[2023-06-21] MEDS: FISH OIL GT (09:28)
[2023-06-21] MEDS: SENNOSIDES 8.6 MG TABLET GT ×2 (09:29→20:08)
[2023-06-21] MEDS: MULTIVIT-MIN/IRON FUM/FOLIC AC 1 EACH TABLET GT (09:29)
--- NOTE | 2023-06-21 15:53 | PC.SS ---
Room visit: Resident is laying in bed with TV on with head of the bed elevated with call light properly placed. Resident is well groomed not showing any signs of distress. Resident continues to receive daily room visit from this SSD. Resident has no changes in mood or behavior, resident to remain in current care as there is no changes in care or condition.
[2023-06-22] VITALS (10 sets, daily range): BP systolic 103–129; BP diastolic 68–82; PULSE 62–79; RESP 18–19; TEMP 36.1–36.6; O2SAT 93–98
[2023-06-22] MEDS: PROPRANOLOL 10 MG TABLET 20 MG GT ×3 (05:40→21:28)
[2023-06-22] MEDS: guaiFENesin Liq 100 MG/5 ML LIQUID 300 MG GT ×2 (07:56→20:26)
[2023-06-22] MEDS: FLAX GT (08:08)
[2023-06-22] MEDS: FISH OIL GT (08:08)
[2023-06-22] MEDS: DEXLANSOPRAZOLE 30 MG GT (08:08)
[2023-06-22] MEDS: [UNRECOGNIZED DRUG - OTHER] GT (08:08)
[2023-06-22] MEDS: TEARS BOTH EYES ×2 (08:08→20:25)
[2023-06-22] MEDS: BORAGE GT (08:08)
[2023-06-22] MEDS: [UNRECOGNIZED DRUG - OTHER] BOTH EYES ×2 (08:08→20:25)
[2023-06-22] MEDS: SENNOSIDES 8.6 MG TABLET GT ×2 (08:09→20:25)
[2023-06-22] MEDS: MULTIVIT-MIN/IRON FUM/FOLIC AC 1 EACH TABLET GT (08:09)
[2023-06-23] VITALS (12 sets, daily range): BP systolic 95–112; BP diastolic 59–72; PULSE 55–71; RESP 18–19; TEMP 36.2–36.6; O2SAT 94–100
[2023-06-23] MEDS: PROPRANOLOL 10 MG TABLET 20 MG GT ×3 (05:09→21:23)
[2023-06-23] MEDS: FISH OIL GT (07:59)
[2023-06-23] MEDS: [UNRECOGNIZED DRUG - OTHER] BOTH EYES ×2 (07:59→20:35)
[2023-06-23] MEDS: TEARS BOTH EYES ×2 (07:59→20:35)
[2023-06-23] MEDS: [UNRECOGNIZED DRUG - OTHER] GT (07:59)
[2023-06-23] MEDS: BORAGE GT (07:59)
[2023-06-23] MEDS: FLAX GT (07:59)
[2023-06-23] MEDS: DEXLANSOPRAZOLE 30 MG GT (07:59)
[2023-06-23] MEDS: LOSARTAN 25 MG TABLET GT (08:00)
[2023-06-23] MEDS: MULTIVIT-MIN/IRON FUM/FOLIC AC 1 EACH TABLET GT (08:01)
[2023-06-23] MEDS: SENNOSIDES 8.6 MG TABLET GT ×2 (08:02→20:35)
[2023-06-24] VITALS (10 sets, daily range): BP systolic 92–118; BP diastolic 50–74; PULSE 60–77; RESP 18–20; TEMP 36.2–36.3; O2SAT 95–97
[2023-06-24] MEDS: DEXLANSOPRAZOLE 30 MG GT (08:02)
[2023-06-24] MEDS: [UNRECOGNIZED DRUG - OTHER] BOTH EYES ×2 (08:02→20:05)
[2023-06-24] MEDS: TEARS BOTH EYES ×2 (08:02→20:05)
[2023-06-24] MEDS: BORAGE GT (08:03)
[2023-06-24] MEDS: LOSARTAN 25 MG TABLET GT (08:03)
[2023-06-24] MEDS: FISH OIL GT (08:03)
[2023-06-24] MEDS: [UNRECOGNIZED DRUG - OTHER] GT (08:03)
[2023-06-24] MEDS: FLAX GT (08:03)
[2023-06-24] MEDS: MULTIVIT-MIN/IRON FUM/FOLIC AC 1 EACH TABLET GT (08:04)
[2023-06-24] MEDS: SENNOSIDES 8.6 MG TABLET GT ×2 (08:05→20:05)
[2023-06-24] MEDS: PROPRANOLOL 10 MG TABLET 20 MG GT ×2 (13:53→20:06)
[2023-06-25] VITALS (10 sets, daily range): BP systolic 98–118; BP diastolic 64–73; PULSE 56–79; RESP 16–19; TEMP 36.2–36.4; O2SAT 95–99
[2023-06-25] MEDS: PROPRANOLOL 10 MG TABLET 20 MG GT ×3 (06:21→21:04)
[2023-06-25] MEDS: DEXLANSOPRAZOLE 30 MG GT (08:24)
[2023-06-25] MEDS: TEARS BOTH EYES ×2 (08:24→20:14)
[2023-06-25] MEDS: [UNRECOGNIZED DRUG - OTHER] GT (08:24)
[2023-06-25] MEDS: FLAX GT (08:24)
[2023-06-25] MEDS: FISH OIL GT (08:24)
[2023-06-25] MEDS: BORAGE GT (08:24)
[2023-06-25] MEDS: [UNRECOGNIZED DRUG - OTHER] BOTH EYES ×2 (08:24→20:14)
[2023-06-25] MEDS: SENNOSIDES 8.6 MG TABLET GT ×2 (08:25→20:14)
[2023-06-25] MEDS: LOSARTAN 25 MG TABLET GT (08:25)
[2023-06-25] MEDS: MULTIVIT-MIN/IRON FUM/FOLIC AC 1 EACH TABLET GT (08:25)
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
[2023-06-26] VITALS (10 sets, daily range): BP systolic 103–110; BP diastolic 61–77; PULSE 59–82; RESP 18–20; TEMP 36.3–36.6; O2SAT 20–99
[2023-06-26] MEDS: PROPRANOLOL 10 MG TABLET 20 MG GT ×3 (05:15→21:14)
[2023-06-26] MEDS: FLAX GT (08:02)
[2023-06-26] MEDS: DEXLANSOPRAZOLE 30 MG GT (08:02)
[2023-06-26] MEDS: TEARS BOTH EYES ×2 (08:02→20:19)
[2023-06-26] MEDS: [UNRECOGNIZED DRUG - OTHER] BOTH EYES ×2 (08:02→20:19)
[2023-06-26] MEDS: FISH OIL GT (08:02)
[2023-06-26] MEDS: [UNRECOGNIZED DRUG - OTHER] GT (08:02)
[2023-06-26] MEDS: BORAGE GT (08:02)
[2023-06-26] MEDS: SENNOSIDES 8.6 MG TABLET GT ×2 (08:03→20:19)
[2023-06-26] MEDS: MULTIVIT-MIN/IRON FUM/FOLIC AC 1 EACH TABLET GT (08:03)
[2023-06-27] VITALS (9 sets, daily range): BP systolic 93–113; BP diastolic 58–73; PULSE 58–78; RESP 16–19; TEMP 36.1–36.4; O2SAT 92–99
[2023-06-27] MEDS: PROPRANOLOL 10 MG TABLET 20 MG GT ×3 (05:10→21:05)
[2023-06-27] MEDS: LOSARTAN 25 MG TABLET GT (08:44)
[2023-06-27] MEDS: MULTIVIT-MIN/IRON FUM/FOLIC AC 1 EACH TABLET GT (08:45)
[2023-06-27] MEDS: SENNOSIDES 8.6 MG TABLET GT ×2 (08:45→20:15)
[2023-06-27] MEDS: FISH OIL GT (08:45)
[2023-06-27] MEDS: [UNRECOGNIZED DRUG - OTHER] GT (08:45)
[2023-06-27] MEDS: [UNRECOGNIZED DRUG - OTHER] BOTH EYES ×2 (08:45→20:15)
[2023-06-27] MEDS: FLAX GT (08:45)
[2023-06-27] MEDS: TEARS BOTH EYES ×2 (08:45→20:15)
[2023-06-27] MEDS: BORAGE GT (08:45)
[2023-06-27] MEDS: DEXLANSOPRAZOLE 30 MG GT (08:45)
--- NOTE | 2023-06-27 12:06 | CHAP ---
11:00 AM Visited by spiritual care volunteer Provided prayer for Patient.
--- NOTE | 2023-06-27 12:33 | PC.SS ---
Room visit: Resident is laying in bed with head of the bed elevated. Resident has TV on with call light properly placed, showing no signs of distress or changes in mood or behavior. Resident has no changes in care or condition, resident will remain in current care and will continue to be evaluated as appropriate fro DC to lower level of care. Resident will continue to receive daily room visits from staff.
[2023-06-27] MEDS: guaiFENesin Liq 100 MG/5 ML LIQUID 300 MG GT (20:15)
[2023-06-28] VITALS (11 sets, daily range): BP systolic 94–119; BP diastolic 63–79; PULSE 58–82; RESP 16–20; TEMP 36.1–36.6; O2SAT 95–100
[2023-06-28] MEDS: PROPRANOLOL 10 MG TABLET 20 MG GT ×2 (05:05→13:33)
[2023-06-28] MEDS: [UNRECOGNIZED DRUG - OTHER] BOTH EYES ×2 (09:49→20:11)
[2023-06-28] MEDS: DEXLANSOPRAZOLE 30 MG GT (09:49)
[2023-06-28] MEDS: TEARS BOTH EYES ×2 (09:49→20:11)
[2023-06-28] MEDS: MULTIVIT-MIN/IRON FUM/FOLIC AC 1 EACH TABLET GT (09:50)
[2023-06-28] MEDS: FLAX GT (09:50)
[2023-06-28] MEDS: [UNRECOGNIZED DRUG - OTHER] GT (09:50)
[2023-06-28] MEDS: BORAGE GT (09:50)
[2023-06-28] MEDS: FISH OIL GT (09:50)
[2023-06-28] MEDS: LOSARTAN 25 MG TABLET GT (09:51)
[2023-06-28] MEDS: SENNOSIDES 8.6 MG TABLET GT ×2 (13:33→20:11)
--- NOTE | 2023-06-28 14:04 | PC.NURSE ---
Recieved bed bath this shift. Sarmad well. Allevyn to sacrum changed per md order. Skin remains in tact. Trach care performed as well.
[2023-06-28] MEDS: MAGNESIUM HYDROXIDE 30 ML ORAL SUSP ML GT (21:14)
[2023-06-29] VITALS (9 sets, daily range): BP systolic 101–141; BP diastolic 67–85; PULSE 67–83; RESP 17–20; TEMP 36.1–36.7; O2SAT 97–99
[2023-06-29] MEDS: PROPRANOLOL 10 MG TABLET 20 MG GT ×3 (05:52→21:22)
[2023-06-29] MEDS: BORAGE GT (09:00)
[2023-06-29] MEDS: FLAX GT (09:00)
[2023-06-29] MEDS: [UNRECOGNIZED DRUG - OTHER] GT (09:00)
[2023-06-29] MEDS: TEARS BOTH EYES ×2 (09:00→20:14)
[2023-06-29] MEDS: SENNOSIDES 8.6 MG TABLET GT ×2 (09:00→20:14)
[2023-06-29] MEDS: DEXLANSOPRAZOLE 30 MG GT (09:00)
[2023-06-29] MEDS: FISH OIL GT (09:00)
[2023-06-29] MEDS: [UNRECOGNIZED DRUG - OTHER] BOTH EYES ×2 (09:00→20:14)
[2023-06-29] MEDS: LOSARTAN 25 MG TABLET GT (12:45)
[2023-06-29] MEDS: MULTIVIT-MIN/IRON FUM/FOLIC AC 1 EACH TABLET GT (12:45)
--- NOTE | 2023-06-29 22:22 | PD.SAPROG ---
Progress Note - SubAcute DIAGNOSIS (1) Traumatic brain injury: Status: Acute SUBJECTIVE Fever:: none GI:: none Shortness of Breath:: none GI:: no complaints Pain:: none OBJECTIVE Most recent vital signs: Last Vital Signs Temp 97.1 F 06/29/23 17:49 Pulse 71 06/29/23 21:22 Resp 18 06/29/23 19:22 BP 112/70 06/29/23 21:22 Pulse Ox 97 06/29/23 19:22 O2 Del Method Blow-by 06/26/23 17:58 O2 Flow Rate 10 06/29/23 19:22 FiO2 35 06/29/23 19:22 Neurological:: awake Speech:: none Answers questions:: sometimes (Sometimes opens eyes to command.) Respiratory:: lungs clear Cardiovascular: RRR Abdomen: soft and nontender Extremities:: deformities Decubitus:: none Tracheostomy:: to blow by Feeding per:: G tube Complaints:: none ASSESSMENT & PLAN Assessment: Stable status. No improvement in cognitive function. Diagnosis and treatment reviewed. Prognosis poor. Plan: Current treatment continued as ongoing
[2023-06-30] VITALS (10 sets, daily range): BP systolic 92–110; BP diastolic 56–76; PULSE 56–84; RESP 16–18; TEMP 35.9–36.2; O2SAT 92–100
[2023-06-30] MEDS: PROPRANOLOL 10 MG TABLET 20 MG GT (05:33)
[2023-06-30] MEDS: [UNRECOGNIZED DRUG - OTHER] BOTH EYES ×2 (08:06→20:11)
[2023-06-30] MEDS: DEXLANSOPRAZOLE 30 MG GT (08:06)
[2023-06-30] MEDS: TEARS BOTH EYES ×2 (08:06→20:11)
[2023-06-30] MEDS: BORAGE GT (08:07)
[2023-06-30] MEDS: MULTIVIT-MIN/IRON FUM/FOLIC AC 1 EACH TABLET GT (08:07)
[2023-06-30] MEDS: [UNRECOGNIZED DRUG - OTHER] GT (08:07)
[2023-06-30] MEDS: FLAX GT (08:07)
[2023-06-30] MEDS: FISH OIL GT (08:07)
[2023-06-30] MEDS: SENNOSIDES 8.6 MG TABLET GT ×2 (08:07→20:12)
[2023-06-30] MEDS: LOSARTAN 25 MG TABLET GT (08:07)
--- NOTE | 2023-06-30 10:23 | CHAP ---
Patient was visited by the Spiritual Care Volunteer who also prayed with them. (Volunteer was in the hospital from 09:12-10:30).
[2023-06-30] MEDS: guaiFENesin Liq 100 MG/5 ML LIQUID 300 MG GT (20:13)
[2023-07-01] VITALS (11 sets, daily range): BP systolic 96–120; BP diastolic 61–75; PULSE 54–83; RESP 17–18; TEMP 36.2–36.6; O2SAT 96–100
[2023-07-01] MEDS: PROPRANOLOL 10 MG TABLET 20 MG GT ×3 (05:05→20:15)
[2023-07-01] MEDS: TEARS BOTH EYES ×2 (07:58→20:14)
[2023-07-01] MEDS: [UNRECOGNIZED DRUG - OTHER] BOTH EYES ×2 (07:58→20:14)
[2023-07-01] MEDS: [UNRECOGNIZED DRUG - OTHER] GT (07:59)
[2023-07-01] MEDS: DEXLANSOPRAZOLE 30 MG GT (07:59)
[2023-07-01] MEDS: LOSARTAN 25 MG TABLET GT (07:59)
[2023-07-01] MEDS: FLAX GT (07:59)
[2023-07-01] MEDS: BORAGE GT (07:59)
[2023-07-01] MEDS: FISH OIL GT (07:59)
[2023-07-01] MEDS: SENNOSIDES 8.6 MG TABLET GT ×2 (08:00→20:14)
[2023-07-01] MEDS: MULTIVIT-MIN/IRON FUM/FOLIC AC 1 EACH TABLET GT (08:00)
[2023-07-02] VITALS (10 sets, daily range): BP systolic 96–142; BP diastolic 63–78; PULSE 59–88; RESP 18–19; TEMP 36.2–36.7; O2SAT 96–100
[2023-07-02] MEDS: PROPRANOLOL 10 MG TABLET 20 MG GT ×2 (05:30→13:53)
[2023-07-02] MEDS: TEARS BOTH EYES ×2 (08:10→20:16)
[2023-07-02] MEDS: [UNRECOGNIZED DRUG - OTHER] BOTH EYES ×2 (08:10→20:16)
[2023-07-02] MEDS: FISH OIL GT (08:11)
[2023-07-02] MEDS: FLAX GT (08:11)
[2023-07-02] MEDS: LOSARTAN 25 MG TABLET GT (08:11)
[2023-07-02] MEDS: [UNRECOGNIZED DRUG - OTHER] GT (08:11)
[2023-07-02] MEDS: BORAGE GT (08:11)
[2023-07-02] MEDS: DEXLANSOPRAZOLE 30 MG GT (08:11)
[2023-07-02] MEDS: SENNOSIDES 8.6 MG TABLET GT ×2 (08:12→20:16)
[2023-07-02] MEDS: MULTIVIT-MIN/IRON FUM/FOLIC AC 1 EACH TABLET GT (08:12)
[2023-07-03] VITALS (10 sets, daily range): BP systolic 97–132; BP diastolic 63–84; PULSE 57–98; RESP 17–19; TEMP 36.2–36.6; O2SAT 93–100
[2023-07-03] MEDS: LOSARTAN 25 MG TABLET GT (08:22)
[2023-07-03] MEDS: BORAGE GT (08:22)
[2023-07-03] MEDS: TEARS BOTH EYES ×2 (08:22→21:10)
[2023-07-03] MEDS: FLAX GT (08:22)
[2023-07-03] MEDS: DEXLANSOPRAZOLE 30 MG GT (08:22)
[2023-07-03] MEDS: [UNRECOGNIZED DRUG - OTHER] GT (08:22)
[2023-07-03] MEDS: [UNRECOGNIZED DRUG - OTHER] BOTH EYES ×2 (08:22→21:10)
[2023-07-03] MEDS: CARBAMIDE PEROXIDE OTIC SOL 15 ML BTL 5 DROP BOTH EARS (08:22)
[2023-07-03] MEDS: FISH OIL GT (08:22)
[2023-07-03] MEDS: SENNOSIDES 8.6 MG TABLET GT ×2 (08:23→21:11)
[2023-07-03] MEDS: MULTIVIT-MIN/IRON FUM/FOLIC AC 1 EACH TABLET GT (08:23)
--- NOTE | 2023-07-03 11:10 | PD.SAPROG ---
Progress Note - SubAcute DIAGNOSIS (1) Traumatic brain injury: Status: Acute SUBJECTIVE Fever:: none GI:: none Shortness of Breath:: none GI:: no complaints Pain:: none OBJECTIVE Most recent vital signs: Last Vital Signs Temp 97.4 F 07/05/23 06:00 Pulse 63 07/05/23 06:00 Resp 18 07/05/23 06:00 BP 106/73 07/05/23 06:00 Pulse Ox 97 07/05/23 06:00 O2 Del Method Blow-by 07/03/23 17:53 O2 Flow Rate 10 07/04/23 18:05 FiO2 35 07/04/23 18:05 Neurological:: awake Speech:: none Answers questions:: sometimes (Sometimes opens eyes to command.) Respiratory:: lungs clear Cardiovascular: RRR Abdomen: soft and nontender Extremities:: deformities Decubitus:: none Tracheostomy:: to blow by Feeding per:: G tube Complaints:: none ASSESSMENT & PLAN Assessment: Stable status. No improvement in cognitive function. Diagnosis and treatment reviewed. Prognosis poor. Plan: Current treatment continued as ongoing
[2023-07-03] MEDS: PROPRANOLOL 10 MG TABLET 20 MG GT ×2 (13:33→21:11)
[2023-07-04] VITALS (10 sets, daily range): BP systolic 105–113; BP diastolic 60–74; PULSE 59–88; RESP 17–18; TEMP 36.2–36.4; O2SAT 95–99
[2023-07-04] MEDS: PROPRANOLOL 10 MG TABLET 20 MG GT ×3 (05:18→18:25)
[2023-07-04] MEDS: CARBAMIDE PEROXIDE OTIC SOL 15 ML BTL 5 DROP BOTH EARS ×2 (08:15→20:27)
[2023-07-04] MEDS: [UNRECOGNIZED DRUG - OTHER] BOTH EYES ×2 (08:16→20:27)
[2023-07-04] MEDS: DEXLANSOPRAZOLE 30 MG GT (08:16)
[2023-07-04] MEDS: [UNRECOGNIZED DRUG - OTHER] GT (08:16)
[2023-07-04] MEDS: BORAGE GT (08:16)
[2023-07-04] MEDS: TEARS BOTH EYES ×2 (08:16→20:27)
[2023-07-04] MEDS: FISH OIL GT (08:16)
[2023-07-04] MEDS: FLAX GT (08:16)
[2023-07-04] MEDS: LOSARTAN 25 MG TABLET GT (08:16)
[2023-07-04] MEDS: MULTIVIT-MIN/IRON FUM/FOLIC AC 1 EACH TABLET GT (08:17)
[2023-07-04] MEDS: SENNOSIDES 8.6 MG TABLET GT ×2 (08:17→20:28)
[2023-07-05] VITALS (11 sets, daily range): BP systolic 98–141; BP diastolic 60–84; PULSE 60–98; RESP 17–20; TEMP 35.9–36.5; O2SAT 94–100
[2023-07-05] MEDS: PROPRANOLOL 10 MG TABLET 20 MG GT ×2 (05:22→21:24)
[2023-07-05] MEDS: CARBAMIDE PEROXIDE OTIC SOL 15 ML BTL 5 DROP BOTH EARS ×2 (09:41→20:42)
[2023-07-05] MEDS: FISH OIL GT (09:42)
[2023-07-05] MEDS: FLAX GT (09:42)
[2023-07-05] MEDS: TEARS BOTH EYES ×2 (09:42→20:42)
[2023-07-05] MEDS: [UNRECOGNIZED DRUG - OTHER] GT (09:42)
[2023-07-05] MEDS: [UNRECOGNIZED DRUG - OTHER] BOTH EYES ×2 (09:42→20:42)
[2023-07-05] MEDS: LOSARTAN 25 MG TABLET GT (09:42)
[2023-07-05] MEDS: MULTIVIT-MIN/IRON FUM/FOLIC AC 1 EACH TABLET GT (09:42)
[2023-07-05] MEDS: DEXLANSOPRAZOLE 30 MG GT (09:42)
[2023-07-05] MEDS: BORAGE GT (09:42)
[2023-07-05] MEDS: SENNOSIDES 8.6 MG TABLET GT ×2 (09:43→20:42)
--- NOTE | 2023-07-05 14:38 | PC.SS ---
Room visit: Resident is seen laying in bed with head of the bed elevated, resident has call light properly placed with no signs of distress. Resident is well groomed and appears comfortable. Resident continues to receive daily room visits, he is not showing any changes in mood or behavior. Resident will continue to receive room visits from staff and be offered support as he will accept.
[2023-07-05] MEDS: guaiFENesin Liq 100 MG/5 ML LIQUID 300 MG GT (20:43)
[2023-07-06] VITALS (11 sets, daily range): BP systolic 91–124; BP diastolic 56–72; PULSE 51–68; RESP 17–19; TEMP 36.1–36.4; O2SAT 94–99
[2023-07-06] MEDS: PROPRANOLOL 10 MG TABLET 20 MG GT ×2 (05:18→13:34)
[2023-07-06] MEDS: TEARS BOTH EYES ×2 (09:04→20:34)
[2023-07-06] MEDS: [UNRECOGNIZED DRUG - OTHER] BOTH EYES ×2 (09:04→20:34)
[2023-07-06] MEDS: DEXLANSOPRAZOLE 30 MG GT (09:04)
[2023-07-06] MEDS: CARBAMIDE PEROXIDE OTIC SOL 15 ML BTL 5 DROP BOTH EARS ×2 (09:04→20:33)
[2023-07-06] MEDS: BORAGE GT (09:05)
[2023-07-06] MEDS: LOSARTAN 25 MG TABLET GT (09:05)
[2023-07-06] MEDS: FISH OIL GT (09:05)
[2023-07-06] MEDS: [UNRECOGNIZED DRUG - OTHER] GT (09:05)
[2023-07-06] MEDS: FLAX GT (09:05)
[2023-07-06] MEDS: MULTIVIT-MIN/IRON FUM/FOLIC AC 1 EACH TABLET GT (09:07)
[2023-07-06] MEDS: SENNOSIDES 8.6 MG TABLET GT ×2 (09:07→20:34)
[2023-07-06] MEDS: guaiFENesin Liq 100 MG/5 ML LIQUID 300 MG GT (20:35)
[2023-07-07] VITALS (11 sets, daily range): BP systolic 95–130; BP diastolic 51–71; PULSE 53–92; RESP 18–20; TEMP 36.3–36.6; O2SAT 96–100
[2023-07-07] MEDS: [UNRECOGNIZED DRUG - OTHER] BOTH EYES ×2 (08:14→20:21)
[2023-07-07] MEDS: TEARS BOTH EYES ×2 (08:14→20:21)
[2023-07-07] MEDS: [UNRECOGNIZED DRUG - OTHER] GT (08:15)
[2023-07-07] MEDS: DEXLANSOPRAZOLE 30 MG GT (08:15)
[2023-07-07] MEDS: FLAX GT (08:15)
[2023-07-07] MEDS: BORAGE GT (08:15)
[2023-07-07] MEDS: FISH OIL GT (08:15)
[2023-07-07] MEDS: MULTIVIT-MIN/IRON FUM/FOLIC AC 1 EACH TABLET GT (08:16)
[2023-07-07] MEDS: SENNOSIDES 8.6 MG TABLET GT ×2 (08:17→20:21)
--- NOTE | 2023-07-07 10:20 | CHAP ---
Patient was visited by the Spiritual Care Volunteer who prayed for them. (Volunteer was in the hospital from 08:36-10:20)
[2023-07-07] MEDS: PROPRANOLOL 10 MG TABLET 20 MG GT (21:13)
--- NOTE | 2023-07-07 22:58 | PD.SAPROG ---
Progress Note - SubAcute DIAGNOSIS (1) Traumatic brain injury: Status: Chronic SUBJECTIVE Fever:: none GI:: none Shortness of Breath:: none GI:: no complaints Pain:: none OBJECTIVE Most recent vital signs: Last Vital Signs Temp 97.8 F 07/07/23 17:50 Pulse 66 07/07/23 21:13 Resp 18 07/07/23 17:50 BP 104/69 07/07/23 21:13 Pulse Ox 99 07/07/23 17:50 O2 Del Method Blow-by 07/07/23 17:50 O2 Flow Rate 10 07/07/23 09:00 FiO2 35 07/07/23 09:00 Neurological:: awake Speech:: none Answers questions:: sometimes (Sometimes opens eyes to command.) Respiratory:: lungs clear Cardiovascular: RRR Abdomen: soft and nontender Extremities:: deformities Decubitus:: none Tracheostomy:: to blow by Feeding per:: G tube Complaints:: none ASSESSMENT & PLAN Assessment: Stable status. No improvement in cognitive function. Diagnosis and treatment reviewed. Prognosis poor. Plan: Current treatment continued as ongoing
[2023-07-08] VITALS (10 sets, daily range): BP systolic 100–129; BP diastolic 59–74; PULSE 58–75; RESP 17–18; TEMP 36.1–36.3; O2SAT 95–98
[2023-07-08] MEDS: PROPRANOLOL 10 MG TABLET 20 MG GT ×3 (05:31→21:09)
[2023-07-08] MEDS: FISH OIL GT (08:29)
[2023-07-08] MEDS: FLAX GT (08:29)
[2023-07-08] MEDS: DEXLANSOPRAZOLE 30 MG GT (08:29)
[2023-07-08] MEDS: BORAGE GT (08:29)
[2023-07-08] MEDS: [UNRECOGNIZED DRUG - OTHER] GT (08:29)
[2023-07-08] MEDS: SENNOSIDES 8.6 MG TABLET GT ×2 (08:30→21:09)
[2023-07-08] MEDS: MULTIVIT-MIN/IRON FUM/FOLIC AC 1 EACH TABLET GT (08:30)
[2023-07-08] MEDS: [UNRECOGNIZED DRUG - OTHER] BOTH EYES ×2 (08:31→21:09)
[2023-07-08] MEDS: TEARS BOTH EYES ×2 (08:31→21:09)
[2023-07-09] VITALS (11 sets, daily range): BP systolic 95–135; BP diastolic 62–82; PULSE 60–81; RESP 17–18; TEMP 36.1–36.5; O2SAT 95–98
[2023-07-09] MEDS: FLAX GT (08:05)
[2023-07-09] MEDS: [UNRECOGNIZED DRUG - OTHER] GT (08:05)
[2023-07-09] MEDS: DEXLANSOPRAZOLE 30 MG GT (08:05)
[2023-07-09] MEDS: [UNRECOGNIZED DRUG - OTHER] BOTH EYES ×2 (08:05→21:15)
[2023-07-09] MEDS: FISH OIL GT (08:05)
[2023-07-09] MEDS: BORAGE GT (08:05)
[2023-07-09] MEDS: TEARS BOTH EYES ×2 (08:05→21:15)
[2023-07-09] MEDS: SENNOSIDES 8.6 MG TABLET GT ×2 (08:06→21:15)
[2023-07-09] MEDS: MULTIVIT-MIN/IRON FUM/FOLIC AC 1 EACH TABLET GT (08:06)
[2023-07-09] MEDS: PROPRANOLOL 10 MG TABLET 20 MG GT ×2 (13:43→21:15)
[2023-07-10] VITALS (11 sets, daily range): BP systolic 94–121; BP diastolic 60–76; PULSE 55–64; RESP 17–21; TEMP 36.2–36.6; O2SAT 95–98
[2023-07-10] MEDS: PROPRANOLOL 10 MG TABLET 20 MG GT ×2 (05:31→13:51)
[2023-07-10] MEDS: BORAGE GT (08:32)
[2023-07-10] MEDS: DEXLANSOPRAZOLE 30 MG GT (08:32)
[2023-07-10] MEDS: [UNRECOGNIZED DRUG - OTHER] BOTH EYES ×2 (08:32→20:40)
[2023-07-10] MEDS: FISH OIL GT (08:32)
[2023-07-10] MEDS: TEARS BOTH EYES ×2 (08:32→20:40)
[2023-07-10] MEDS: FLAX GT (08:32)
[2023-07-10] MEDS: [UNRECOGNIZED DRUG - OTHER] GT (08:32)
[2023-07-10] MEDS: LOSARTAN 25 MG TABLET GT (08:36)
[2023-07-10] MEDS: MULTIVIT-MIN/IRON FUM/FOLIC AC 1 EACH TABLET GT (08:37)
[2023-07-10] MEDS: SENNOSIDES 8.6 MG TABLET GT ×2 (08:37→20:40)
[2023-07-11] VITALS (12 sets, daily range): BP systolic 90–114; BP diastolic 64–77; PULSE 62–87; RESP 16–19; TEMP 36.3–36.7; O2SAT 95–98
[2023-07-11] MEDS: PROPRANOLOL 10 MG TABLET 20 MG GT ×3 (05:14→22:00)
[2023-07-11] MEDS: TEARS BOTH EYES ×2 (09:43→21:00)
[2023-07-11] MEDS: [UNRECOGNIZED DRUG - OTHER] BOTH EYES ×2 (09:43→21:00)
[2023-07-11] MEDS: DEXLANSOPRAZOLE 30 MG GT (09:44)
[2023-07-11] MEDS: [UNRECOGNIZED DRUG - OTHER] GT (09:44)
[2023-07-11] MEDS: FISH OIL GT (09:44)
[2023-07-11] MEDS: BORAGE GT (09:44)
[2023-07-11] MEDS: FLAX GT (09:44)
[2023-07-11] MEDS: MULTIVIT-MIN/IRON FUM/FOLIC AC 1 EACH TABLET GT (09:45)
[2023-07-11] MEDS: SENNOSIDES 8.6 MG TABLET GT ×2 (09:45→21:00)
--- NOTE | 2023-07-11 11:45 | PD.SAPROG ---
Progress Note - SubAcute DIAGNOSIS (1) Traumatic brain injury: Status: Chronic SUBJECTIVE Fever:: none GI:: none Shortness of Breath:: none GI:: no complaints Pain:: none OBJECTIVE Most recent vital signs: Last Vital Signs Temp 97.3 F 07/14/23 11:42 Pulse 72 07/14/23 14:05 Resp 17 07/14/23 11:42 BP 117/76 07/14/23 14:05 Pulse Ox 96 07/14/23 06:20 O2 Del Method Blow-by 07/13/23 18:00 O2 Flow Rate 10 07/14/23 06:20 FiO2 35 07/14/23 06:20 Neurological:: awake Speech:: none Answers questions:: sometimes (Sometimes opens eyes to command.) Respiratory:: lungs clear Cardiovascular: RRR Abdomen: soft and nontender Extremities:: deformities Decubitus:: none Tracheostomy:: to blow by Feeding per:: G tube Complaints:: none ASSESSMENT & PLAN Assessment: Stable status. No improvement in cognitive function. Diagnosis and treatment reviewed. Prognosis poor. Plan: Current treatment continued as ongoing
--- NOTE | 2023-07-11 13:49 | CHAP ---
11:00 AM Visited by spiritual care volunteer Provided prayer for Patient.
[2023-07-11] MEDS: MAGNESIUM HYDROXIDE 30 ML ORAL SUSP ML GT (15:44)
[2023-07-12] VITALS (9 sets, daily range): BP systolic 104–118; BP diastolic 60–85; PULSE 53–76; RESP 17–20; TEMP 36.3–36.4; O2SAT 96–98
[2023-07-12] MEDS: PROPRANOLOL 10 MG TABLET 20 MG GT ×2 (06:00→14:22)
[2023-07-12] MEDS: [UNRECOGNIZED DRUG - OTHER] BOTH EYES ×2 (07:57→20:20)
[2023-07-12] MEDS: TEARS BOTH EYES ×2 (07:57→20:20)
[2023-07-12] MEDS: BORAGE GT (07:58)
[2023-07-12] MEDS: DEXLANSOPRAZOLE 30 MG GT (07:58)
[2023-07-12] MEDS: FISH OIL GT (07:58)
[2023-07-12] MEDS: FLAX GT (07:58)
[2023-07-12] MEDS: [UNRECOGNIZED DRUG - OTHER] GT (07:58)
[2023-07-12] MEDS: MULTIVIT-MIN/IRON FUM/FOLIC AC 1 EACH TABLET GT (07:59)
[2023-07-12] MEDS: SENNOSIDES 8.6 MG TABLET GT ×2 (08:00→20:20)
--- NOTE | 2023-07-12 15:44 | PC.SS ---
Room visit: Resident is laying in bed with head of the bed elevated light properly placed. Resident is well groomed with no signs of distress. Resident currently has no changes in care or condition, resident will remain in current care as resident is not ready to DC to SNF or lower level of care. Resident will have daily room visits from [facility].
--- NOTE | 2023-07-12 15:55 | PC.NURSE ---
Resident received shower and tolerated well. Trach care and wound prevention provided to resident.
[2023-07-13] VITALS (10 sets, daily range): BP systolic 99–120; BP diastolic 56–78; PULSE 57–79; RESP 17–18; TEMP 36.1–36.8; O2SAT 95–99
[2023-07-13] MEDS: PROPRANOLOL 10 MG TABLET 20 MG GT ×2 (06:48→15:01)
[2023-07-13] MEDS: [UNRECOGNIZED DRUG - OTHER] BOTH EYES ×2 (09:02→20:17)
[2023-07-13] MEDS: TEARS BOTH EYES ×2 (09:02→20:17)
[2023-07-13] MEDS: FISH OIL GT (09:03)
[2023-07-13] MEDS: BORAGE GT (09:03)
[2023-07-13] MEDS: [UNRECOGNIZED DRUG - OTHER] GT (09:03)
[2023-07-13] MEDS: FLAX GT (09:03)
[2023-07-13] MEDS: DEXLANSOPRAZOLE 30 MG GT (09:03)
[2023-07-13] MEDS: MULTIVIT-MIN/IRON FUM/FOLIC AC 1 EACH TABLET GT (09:04)
[2023-07-13] MEDS: SENNOSIDES 8.6 MG TABLET GT ×2 (09:04→20:17)
[2023-07-13] MEDS: guaiFENesin Liq 100 MG/5 ML LIQUID 300 MG GT (09:05)
[2023-07-14] VITALS (10 sets, daily range): BP systolic 103–117; BP diastolic 60–76; PULSE 52–85; RESP 17–18; TEMP 36.3–36.4; O2SAT 95–97
[2023-07-14] MEDS: PROPRANOLOL 10 MG TABLET 20 MG GT ×3 (05:14→21:17)
[2023-07-14] MEDS: DEXLANSOPRAZOLE 30 MG GT (08:59)
[2023-07-14] MEDS: TEARS BOTH EYES ×2 (08:59→21:17)
[2023-07-14] MEDS: [UNRECOGNIZED DRUG - OTHER] BOTH EYES ×2 (08:59→21:17)
[2023-07-14] MEDS: [UNRECOGNIZED DRUG - OTHER] GT (09:00)
[2023-07-14] MEDS: FISH OIL GT (09:00)
[2023-07-14] MEDS: BORAGE GT (09:00)
[2023-07-14] MEDS: FLAX GT (09:00)
[2023-07-14] MEDS: MULTIVIT-MIN/IRON FUM/FOLIC AC 1 EACH TABLET GT (09:01)
[2023-07-14] MEDS: SENNOSIDES 8.6 MG TABLET GT ×2 (09:01→21:17)
--- NOTE | 2023-07-14 10:15 | CHAP ---
Patient was visited by the Spiritual Care Volunteers who also prayed for them. (Volunteers were in the hospital from 09:20-10:15).
[2023-07-15] VITALS (11 sets, daily range): BP systolic 95–131; BP diastolic 62–82; PULSE 54–82; RESP 18–22; TEMP 36.2–36.8; O2SAT 96–98
[2023-07-15] MEDS: BORAGE GT (09:46)
[2023-07-15] MEDS: TEARS BOTH EYES ×2 (09:46→23:05)
[2023-07-15] MEDS: [UNRECOGNIZED DRUG - OTHER] GT (09:46)
[2023-07-15] MEDS: DEXLANSOPRAZOLE 30 MG GT (09:46)
[2023-07-15] MEDS: FISH OIL GT (09:46)
[2023-07-15] MEDS: FLAX GT (09:46)
[2023-07-15] MEDS: [UNRECOGNIZED DRUG - OTHER] BOTH EYES ×2 (09:46→23:05)
[2023-07-15] MEDS: MULTIVIT-MIN/IRON FUM/FOLIC AC 1 EACH TABLET GT (09:47)
[2023-07-15] MEDS: SENNOSIDES 8.6 MG TABLET GT ×2 (09:48→23:05)
[2023-07-15] MEDS: PROPRANOLOL 10 MG TABLET 20 MG GT (14:14)
[2023-07-16] VITALS (10 sets, daily range): BP systolic 98–130; BP diastolic 66–88; PULSE 57–109; RESP 16–19; TEMP 36.2–36.9; O2SAT 95–99
[2023-07-16] MEDS: PROPRANOLOL 10 MG TABLET 20 MG GT ×2 (05:20→21:09)
[2023-07-16] MEDS: FISH OIL GT (08:46)
[2023-07-16] MEDS: BORAGE GT (08:46)
[2023-07-16] MEDS: LOSARTAN 25 MG TABLET GT (08:46)
[2023-07-16] MEDS: MULTIVIT-MIN/IRON FUM/FOLIC AC 1 EACH TABLET GT (08:46)
[2023-07-16] MEDS: [UNRECOGNIZED DRUG - OTHER] GT (08:46)
[2023-07-16] MEDS: TEARS BOTH EYES ×2 (08:46→21:09)
[2023-07-16] MEDS: SENNOSIDES 8.6 MG TABLET GT ×2 (08:46→21:09)
[2023-07-16] MEDS: FLAX GT (08:46)
[2023-07-16] MEDS: DEXLANSOPRAZOLE 30 MG GT (08:46)
[2023-07-16] MEDS: [UNRECOGNIZED DRUG - OTHER] BOTH EYES ×2 (08:46→21:09)
[2023-07-17] VITALS (11 sets, daily range): BP systolic 97–118; BP diastolic 63–72; PULSE 55–87; RESP 16–20; TEMP 36.2–36.6; O2SAT 95–98
[2023-07-17] MEDS: PROPRANOLOL 10 MG TABLET 20 MG GT ×3 (05:34→21:02)
[2023-07-17] MEDS: [UNRECOGNIZED DRUG - OTHER] GT (08:51)
[2023-07-17] MEDS: [UNRECOGNIZED DRUG - OTHER] BOTH EYES ×2 (08:51→20:34)
[2023-07-17] MEDS: TEARS BOTH EYES ×2 (08:51→20:34)
[2023-07-17] MEDS: DEXLANSOPRAZOLE 30 MG GT (08:51)
[2023-07-17] MEDS: FISH OIL GT (08:51)
[2023-07-17] MEDS: FLAX GT (08:51)
[2023-07-17] MEDS: BORAGE GT (08:51)
[2023-07-17] MEDS: SENNOSIDES 8.6 MG TABLET GT ×2 (08:52→20:35)
[2023-07-17] MEDS: MULTIVIT-MIN/IRON FUM/FOLIC AC 1 EACH TABLET GT (08:52)
[2023-07-17] MEDS: MAGNESIUM HYDROXIDE 30 ML ORAL SUSP ML GT (14:16)
--- NOTE | 2023-07-17 22:49 | PD.SAPROG ---
Progress Note - SubAcute DIAGNOSIS (1) Traumatic brain injury: Status: Chronic SUBJECTIVE Fever:: none GI:: none Shortness of Breath:: none GI:: no complaints Pain:: none OBJECTIVE Most recent vital signs: Last Vital Signs Temp 97.8 F 07/21/23 18:00 Pulse 61 07/21/23 20:59 Resp 18 07/21/23 18:00 BP 95/57 L 07/21/23 20:59 Pulse Ox 96 07/21/23 18:00 O2 Del Method Blow-by 07/20/23 05:50 O2 Flow Rate 07/21/23 09:00 FiO2 35 07/21/23 09:00 Neurological:: awake Speech:: none Answers questions:: sometimes (Sometimes opens eyes to command.) Respiratory:: lungs clear Cardiovascular: RRR Abdomen: soft and nontender Extremities:: deformities Decubitus:: none Tracheostomy:: to blow by Feeding per:: G tube Complaints:: none ASSESSMENT & PLAN Assessment: Stable status. No improvement in cognitive function. Diagnosis and treatment reviewed. Prognosis poor. Plan: Current treatment continued as ongoing
[2023-07-18] VITALS (10 sets, daily range): BP systolic 94–118; BP diastolic 58–71; PULSE 58–89; RESP 17–18; TEMP 36.4–36.6; O2SAT 95–98
[2023-07-18] MEDS: PROPRANOLOL 10 MG TABLET 20 MG GT ×3 (05:33→22:00)
[2023-07-18] MEDS: BORAGE GT (08:39)
[2023-07-18] MEDS: FLAX GT (08:39)
[2023-07-18] MEDS: [UNRECOGNIZED DRUG - OTHER] GT (08:39)
[2023-07-18] MEDS: DEXLANSOPRAZOLE 30 MG GT (08:39)
[2023-07-18] MEDS: FISH OIL GT (08:39)
[2023-07-18] MEDS: [UNRECOGNIZED DRUG - OTHER] BOTH EYES ×2 (08:39→20:29)
[2023-07-18] MEDS: TEARS BOTH EYES ×2 (08:39→20:29)
[2023-07-18] MEDS: SENNOSIDES 8.6 MG TABLET GT ×2 (08:40→20:29)
[2023-07-18] MEDS: MULTIVIT-MIN/IRON FUM/FOLIC AC 1 EACH TABLET GT (08:40)
[2023-07-19] VITALS (10 sets, daily range): BP systolic 98–119; BP diastolic 59–76; PULSE 55–85; RESP 16–19; TEMP 36.2–36.7; O2SAT 94–100
[2023-07-19] MEDS: TEARS BOTH EYES ×2 (08:59→20:16)
[2023-07-19] MEDS: [UNRECOGNIZED DRUG - OTHER] BOTH EYES ×2 (08:59→20:16)
[2023-07-19] MEDS: FLAX GT (09:00)
[2023-07-19] MEDS: [UNRECOGNIZED DRUG - OTHER] GT (09:00)
[2023-07-19] MEDS: BORAGE GT (09:00)
[2023-07-19] MEDS: FISH OIL GT (09:00)
[2023-07-19] MEDS: DEXLANSOPRAZOLE 30 MG GT (09:00)
[2023-07-19] MEDS: MULTIVIT-MIN/IRON FUM/FOLIC AC 1 EACH TABLET GT (09:01)
[2023-07-19] MEDS: SENNOSIDES 8.6 MG TABLET GT ×2 (09:01→20:16)
[2023-07-19] MEDS: PROPRANOLOL 10 MG TABLET 20 MG GT ×2 (14:43→20:16)
--- NOTE | 2023-07-19 15:46 | PC.SS ---
Room visit: Resident is laying in bed with head of the bed elevated with call light properly placed. Resident is well groomed with no signs of distress. Resident continues to get daily room visits, not showing any changes in mood or behavior. Resident will remain in current care as there are no changes in care or condition. Resident will continue to be evaluated as appropriate for DC to lower level of care.
[2023-07-20] VITALS (11 sets, daily range): BP systolic 94–145; BP diastolic 58–86; PULSE 54–86; RESP 16–19; TEMP 36.1–36.6; O2SAT 94–98
[2023-07-20] MEDS: PROPRANOLOL 10 MG TABLET 20 MG GT ×3 (05:42→20:39)
[2023-07-20] MEDS: FISH OIL GT (08:30)
[2023-07-20] MEDS: FLAX GT (08:30)
[2023-07-20] MEDS: TEARS BOTH EYES ×2 (08:30→20:40)
[2023-07-20] MEDS: DEXLANSOPRAZOLE 30 MG GT (08:30)
[2023-07-20] MEDS: BORAGE GT (08:30)
[2023-07-20] MEDS: MULTIVIT-MIN/IRON FUM/FOLIC AC 1 EACH TABLET GT (08:30)
[2023-07-20] MEDS: [UNRECOGNIZED DRUG - OTHER] BOTH EYES ×2 (08:30→20:40)
[2023-07-20] MEDS: SENNOSIDES 8.6 MG TABLET GT ×2 (08:30→20:40)
[2023-07-20] MEDS: [UNRECOGNIZED DRUG - OTHER] GT (08:30)
[2023-07-21] VITALS (11 sets, daily range): BP systolic 95–133; BP diastolic 57–79; PULSE 54–79; RESP 18–22; TEMP 36.1–36.6; O2SAT 96–99
[2023-07-21] MEDS: PROPRANOLOL 10 MG TABLET 20 MG GT ×2 (05:59→14:09)
[2023-07-21] MEDS: TEARS BOTH EYES ×2 (09:37→20:58)
[2023-07-21] MEDS: FISH OIL GT (09:37)
[2023-07-21] MEDS: [UNRECOGNIZED DRUG - OTHER] GT (09:37)
[2023-07-21] MEDS: [UNRECOGNIZED DRUG - OTHER] BOTH EYES ×2 (09:37→20:58)
[2023-07-21] MEDS: BORAGE GT (09:37)
[2023-07-21] MEDS: DEXLANSOPRAZOLE 30 MG GT (09:37)
[2023-07-21] MEDS: FLAX GT (09:37)
[2023-07-21] MEDS: MULTIVIT-MIN/IRON FUM/FOLIC AC 1 EACH TABLET GT (09:38)
[2023-07-21] MEDS: SENNOSIDES 8.6 MG TABLET GT ×2 (09:39→20:59)
[2023-07-22] VITALS (10 sets, daily range): BP systolic 96–142; BP diastolic 57–81; PULSE 60–88; RESP 16–20; TEMP 36.2–36.7; O2SAT 96–98
[2023-07-22] MEDS: PROPRANOLOL 10 MG TABLET 20 MG GT ×2 (05:16→21:36)
[2023-07-22] MEDS: MAGNESIUM HYDROXIDE 30 ML ORAL SUSP ML GT (06:01)
[2023-07-22] MEDS: FLAX GT (09:15)
[2023-07-22] MEDS: FISH OIL GT (09:15)
[2023-07-22] MEDS: BORAGE GT (09:15)
[2023-07-22] MEDS: [UNRECOGNIZED DRUG - OTHER] BOTH EYES ×2 (09:15→20:44)
[2023-07-22] MEDS: [UNRECOGNIZED DRUG - OTHER] GT (09:15)
[2023-07-22] MEDS: DEXLANSOPRAZOLE 30 MG GT (09:15)
[2023-07-22] MEDS: TEARS BOTH EYES ×2 (09:15→20:44)
[2023-07-22] MEDS: MULTIVIT-MIN/IRON FUM/FOLIC AC 1 EACH TABLET GT (09:16)
[2023-07-22] MEDS: SENNOSIDES 8.6 MG TABLET GT ×2 (09:16→20:45)
[2023-07-23] VITALS (10 sets, daily range): BP systolic 95–142; BP diastolic 60–82; PULSE 65–85; RESP 17–18; TEMP 36.4–36.8; O2SAT 95–96
[2023-07-23] MEDS: [UNRECOGNIZED DRUG - OTHER] BOTH EYES ×2 (08:39→20:44)
[2023-07-23] MEDS: TEARS BOTH EYES ×2 (08:39→20:44)
[2023-07-23] MEDS: FISH OIL GT (08:40)
[2023-07-23] MEDS: FLAX GT (08:40)
[2023-07-23] MEDS: [UNRECOGNIZED DRUG - OTHER] GT (08:40)
[2023-07-23] MEDS: DEXLANSOPRAZOLE 30 MG GT (08:40)
[2023-07-23] MEDS: BORAGE GT (08:40)
[2023-07-23] MEDS: LOSARTAN 25 MG TABLET GT (08:41)
[2023-07-23] MEDS: MULTIVIT-MIN/IRON FUM/FOLIC AC 1 EACH TABLET GT (08:41)
[2023-07-23] MEDS: SENNOSIDES 8.6 MG TABLET GT ×2 (08:42→20:44)
[2023-07-23] MEDS: PROPRANOLOL 10 MG TABLET 20 MG GT ×2 (15:53→21:14)
[2023-07-24] VITALS (10 sets, daily range): BP systolic 98–115; BP diastolic 63–77; PULSE 61–79; RESP 16–20; TEMP 36.2–36.6; O2SAT 94–100
[2023-07-24] MEDS: PROPRANOLOL 10 MG TABLET 20 MG GT ×3 (05:32→21:48)
[2023-07-24] MEDS: FLAX GT (08:27)
[2023-07-24] MEDS: [UNRECOGNIZED DRUG - OTHER] BOTH EYES ×2 (08:27→20:50)
[2023-07-24] MEDS: TEARS BOTH EYES ×2 (08:27→20:50)
[2023-07-24] MEDS: FISH OIL GT (08:27)
[2023-07-24] MEDS: DEXLANSOPRAZOLE 30 MG GT (08:27)
[2023-07-24] MEDS: BORAGE GT (08:27)
[2023-07-24] MEDS: [UNRECOGNIZED DRUG - OTHER] GT (08:27)
[2023-07-24] MEDS: SENNOSIDES 8.6 MG TABLET GT ×2 (08:30→20:51)
--- NOTE | 2023-07-24 11:59 | PC.SS ---
Room visit: Resident is laying in bed with head of the bed elevated with call light properly placed with no signs of distress. Resident is well groomed and appears comfortable. Resident will continue to receive daily room visits as there are no changes in care or condition.
[2023-07-25] VITALS (10 sets, daily range): BP systolic 103–123; BP diastolic 58–78; PULSE 59–96; RESP 17–21; TEMP 36.2–36.9; O2SAT 70–98
[2023-07-25] MEDS: PROPRANOLOL 10 MG TABLET 20 MG GT ×3 (05:37→21:10)
[2023-07-25] MEDS: BORAGE GT (08:50)
[2023-07-25] MEDS: [UNRECOGNIZED DRUG - OTHER] GT (08:50)
[2023-07-25] MEDS: FLAX GT (08:50)
[2023-07-25] MEDS: MULTIVIT-MIN/IRON FUM/FOLIC AC 1 EACH TABLET GT (08:50)
[2023-07-25] MEDS: TEARS BOTH EYES ×2 (08:50→21:10)
[2023-07-25] MEDS: FISH OIL GT (08:50)
[2023-07-25] MEDS: DEXLANSOPRAZOLE 30 MG GT (08:50)
[2023-07-25] MEDS: [UNRECOGNIZED DRUG - OTHER] BOTH EYES ×2 (08:50→21:10)
[2023-07-25] MEDS: SENNOSIDES 8.6 MG TABLET GT ×2 (08:51→21:10)
--- NOTE | 2023-07-25 12:46 | CHAP ---
The patient was prayed for by the Spiritual Care Volunteer. (Volunteer was in the hospital from 10:30-12:46).
--- NOTE | 2023-07-25 21:35 | PD.SAPROG ---
Progress Note - SubAcute DIAGNOSIS (1) Traumatic brain injury: Status: Chronic SUBJECTIVE Fever:: none GI:: none Shortness of Breath:: none GI:: no complaints Pain:: none OBJECTIVE Most recent vital signs: Last Vital Signs Temp 98.5 F 07/25/23 17:45 Pulse 79 07/25/23 21:10 Resp 19 07/25/23 17:45 BP 123/74 07/25/23 21:10 Pulse Ox 96 07/25/23 17:45 O2 Del Method Blow-by 07/25/23 17:45 O2 Flow Rate 07/25/23 06:15 FiO2 40 07/25/23 06:15 Neurological:: awake Speech:: none Answers questions:: sometimes (Sometimes opens eyes to command.) Respiratory:: lungs clear Cardiovascular: RRR Abdomen: soft and nontender Extremities:: deformities Decubitus:: none Tracheostomy:: to blow by Feeding per:: G tube Complaints:: none ASSESSMENT & PLAN Assessment: Stable status. No improvement in cognitive function. Diagnosis and treatment reviewed. Prognosis poor. Plan: Current treatment continued as ongoing
[2023-07-26] VITALS (10 sets, daily range): BP systolic 104–133; BP diastolic 66–84; PULSE 60–92; RESP 16–19; TEMP 36.1–36.6; O2SAT 95–99
[2023-07-26] MEDS: PROPRANOLOL 10 MG TABLET 20 MG GT ×3 (05:34→20:34)
[2023-07-26] MEDS: BORAGE GT (08:46)
[2023-07-26] MEDS: [UNRECOGNIZED DRUG - OTHER] GT (08:46)
[2023-07-26] MEDS: DEXLANSOPRAZOLE 30 MG GT (08:46)
[2023-07-26] MEDS: FLAX GT (08:46)
[2023-07-26] MEDS: FISH OIL GT (08:46)
[2023-07-26] MEDS: MULTIVIT-MIN/IRON FUM/FOLIC AC 1 EACH TABLET GT (08:47)
[2023-07-26] MEDS: SENNOSIDES 8.6 MG TABLET GT ×2 (08:47→20:33)
[2023-07-26] MEDS: TEARS BOTH EYES (20:32)
[2023-07-26] MEDS: [UNRECOGNIZED DRUG - OTHER] BOTH EYES (20:32)
[2023-07-27] VITALS (10 sets, daily range): BP systolic 96–127; BP diastolic 56–82; PULSE 56–81; RESP 16–20; TEMP 35.9–36.5; O2SAT 97–98
[2023-07-27] MEDS: PROPRANOLOL 10 MG TABLET 20 MG GT ×2 (05:32→21:37)
[2023-07-27] MEDS: DEXLANSOPRAZOLE 30 MG GT (08:05)
[2023-07-27] MEDS: [UNRECOGNIZED DRUG - OTHER] GT (08:06)
[2023-07-27] MEDS: FISH OIL GT (08:06)
[2023-07-27] MEDS: LOSARTAN 25 MG TABLET GT (08:06)
[2023-07-27] MEDS: BORAGE GT (08:06)
[2023-07-27] MEDS: FLAX GT (08:06)
[2023-07-27] MEDS: MULTIVIT-MIN/IRON FUM/FOLIC AC 1 EACH TABLET GT (08:07)
[2023-07-27] MEDS: SENNOSIDES 8.6 MG TABLET GT ×2 (08:10→20:55)
[2023-07-27] MEDS: [UNRECOGNIZED DRUG - OTHER] BOTH EYES (20:55)
[2023-07-27] MEDS: TEARS BOTH EYES (20:55)
[2023-07-28] VITALS (10 sets, daily range): BP systolic 97–121; BP diastolic 58–82; PULSE 59–92; RESP 17–18; TEMP 36.1–36.4; O2SAT 95–99
[2023-07-28] MEDS: PROPRANOLOL 10 MG TABLET 20 MG GT ×2 (05:55→20:39)
[2023-07-28] MEDS: DEXLANSOPRAZOLE 30 MG GT (09:24)
[2023-07-28] MEDS: [UNRECOGNIZED DRUG - OTHER] GT (09:25)
[2023-07-28] MEDS: FLAX GT (09:25)
[2023-07-28] MEDS: BORAGE GT (09:25)
[2023-07-28] MEDS: FISH OIL GT (09:25)
[2023-07-28] MEDS: LOSARTAN 25 MG TABLET GT (09:25)
[2023-07-28] MEDS: MULTIVIT-MIN/IRON FUM/FOLIC AC 1 EACH TABLET GT (09:26)
[2023-07-28] MEDS: SENNOSIDES 8.6 MG TABLET GT ×2 (09:26→20:37)
--- NOTE | 2023-07-28 20:41 | PC.NURSE ---
Natural Tears not given-not available at this time, ordered from [employer]
[2023-07-29] VITALS (10 sets, daily range): BP systolic 95–114; BP diastolic 57–70; PULSE 60–92; RESP 17–20; TEMP 36.1–36.4; O2SAT 95–100
[2023-07-29] MEDS: FLAX GT (09:02)
[2023-07-29] MEDS: BORAGE GT (09:02)
[2023-07-29] MEDS: FISH OIL GT (09:02)
[2023-07-29] MEDS: DEXLANSOPRAZOLE 30 MG GT (09:02)
[2023-07-29] MEDS: [UNRECOGNIZED DRUG - OTHER] GT (09:02)
[2023-07-29] MEDS: LOSARTAN 25 MG TABLET GT (09:03)
[2023-07-29] MEDS: MULTIVIT-MIN/IRON FUM/FOLIC AC 1 EACH TABLET GT (09:03)
[2023-07-29] MEDS: SENNOSIDES 8.6 MG TABLET GT ×2 (09:04→21:25)
--- NOTE | 2023-07-29 11:35 | PD.SAPROG ---
Progress Note - SubAcute DIAGNOSIS (1) Traumatic brain injury: Status: Chronic SUBJECTIVE Fever:: none GI:: none Shortness of Breath:: none GI:: no complaints Pain:: none OBJECTIVE Most recent vital signs: Last Vital Signs Temp 97.4 F 07/30/23 00:00 Pulse 56 L 07/30/23 00:00 Resp 18 07/30/23 00:00 BP 99/65 07/30/23 00:00 Pulse Ox 98 07/29/23 19:52 O2 Del Method Blow-by 07/28/23 06:00 O2 Flow Rate 10 07/29/23 19:52 FiO2 35 07/29/23 19:52 Neurological:: awake Speech:: none Answers questions:: sometimes (Sometimes opens eyes to command.) Respiratory:: lungs clear Cardiovascular: RRR Abdomen: soft and nontender Extremities:: deformities Decubitus:: none Tracheostomy:: to blow by Feeding per:: G tube Complaints:: none ASSESSMENT & PLAN Assessment: Stable status. No improvement in cognitive function. Diagnosis and treatment reviewed. Prognosis poor. Plan: Current treatment continued as ongoing
[2023-07-29] MEDS: MAGNESIUM HYDROXIDE 30 ML ORAL SUSP ML GT (21:00)
[2023-07-29] MEDS: [UNRECOGNIZED DRUG - OTHER] BOTH EYES (21:24)
[2023-07-29] MEDS: TEARS BOTH EYES (21:24)
[2023-07-29] MEDS: PROPRANOLOL 10 MG TABLET 20 MG GT (21:25)
[2023-07-30] VITALS (13 sets, daily range): BP systolic 93–133; BP diastolic 57–81; PULSE 56–92; RESP 18–20; TEMP 36.1–36.4; O2SAT 95–99
[2023-07-30] MEDS: PROPRANOLOL 10 MG TABLET 20 MG GT ×2 (05:19→14:32)
[2023-07-30] MEDS: DEXLANSOPRAZOLE 30 MG GT (09:38)
[2023-07-30] MEDS: BORAGE GT (09:39)
[2023-07-30] MEDS: FLAX GT (09:39)
[2023-07-30] MEDS: FISH OIL GT (09:39)
[2023-07-30] MEDS: [UNRECOGNIZED DRUG - OTHER] GT (09:39)
[2023-07-30] MEDS: SENNOSIDES 8.6 MG TABLET GT ×2 (09:40→20:22)
[2023-07-30] MEDS: MULTIVIT-MIN/IRON FUM/FOLIC AC 1 EACH TABLET GT (09:40)
[2023-07-31] VITALS (10 sets, daily range): BP systolic 95–117; BP diastolic 61–76; PULSE 56–86; RESP 17–20; TEMP 36–36.6; O2SAT 95–99
[2023-07-31] MEDS: PROPRANOLOL 10 MG TABLET 20 MG GT ×2 (05:25→14:22)
[2023-07-31] MEDS: DEXLANSOPRAZOLE 30 MG GT (08:39)
[2023-07-31] MEDS: FLAX GT (08:40)
[2023-07-31] MEDS: [UNRECOGNIZED DRUG - OTHER] GT (08:40)
[2023-07-31] MEDS: MULTIVIT-MIN/IRON FUM/FOLIC AC 1 EACH TABLET GT (08:40)
[2023-07-31] MEDS: FISH OIL GT (08:40)
[2023-07-31] MEDS: BORAGE GT (08:40)
[2023-07-31] MEDS: SENNOSIDES 8.6 MG TABLET GT ×2 (08:41→20:22)
[2023-07-31] MEDS: TEARS BOTH EYES (21:26)
[2023-07-31] MEDS: [UNRECOGNIZED DRUG - OTHER] BOTH EYES (21:26)
[2023-08-01] VITALS (9 sets, daily range): BP systolic 103–119; BP diastolic 58–73; PULSE 56–87; RESP 18–20; TEMP 36.3–36.5; O2SAT 96–97
[2023-08-01] MEDS: PROPRANOLOL 10 MG TABLET 20 MG GT ×3 (05:47→22:00)
[2023-08-01] MEDS: FLAX GT (09:33)
[2023-08-01] MEDS: [UNRECOGNIZED DRUG - OTHER] BOTH EYES ×2 (09:33→20:33)
[2023-08-01] MEDS: BORAGE GT (09:33)
[2023-08-01] MEDS: DEXLANSOPRAZOLE 30 MG GT (09:33)
[2023-08-01] MEDS: TEARS BOTH EYES ×2 (09:33→20:33)
[2023-08-01] MEDS: FISH OIL GT (09:33)
[2023-08-01] MEDS: [UNRECOGNIZED DRUG - OTHER] GT (09:33)
[2023-08-01] MEDS: LOSARTAN 25 MG TABLET GT (09:33)
[2023-08-01] MEDS: SENNOSIDES 8.6 MG TABLET GT ×2 (09:34→20:33)
[2023-08-01] MEDS: MULTIVIT-MIN/IRON FUM/FOLIC AC 1 EACH TABLET GT (09:34)
[2023-08-02] VITALS (10 sets, daily range): BP systolic 101–129; BP diastolic 66–76; PULSE 65–79; RESP 17–19; TEMP 36.3–37.1; O2SAT 93–96
[2023-08-02] MEDS: PROPRANOLOL 10 MG TABLET 20 MG GT ×3 (05:44→21:00)
[2023-08-02] MEDS: [UNRECOGNIZED DRUG - OTHER] BOTH EYES ×2 (09:16→21:00)
[2023-08-02] MEDS: TEARS BOTH EYES ×2 (09:16→21:00)
[2023-08-02] MEDS: DEXLANSOPRAZOLE 30 MG GT (09:16)
[2023-08-02] MEDS: BORAGE GT (09:17)
[2023-08-02] MEDS: FISH OIL GT (09:17)
[2023-08-02] MEDS: [UNRECOGNIZED DRUG - OTHER] GT (09:17)
[2023-08-02] MEDS: FLAX GT (09:17)
[2023-08-02] MEDS: MULTIVIT-MIN/IRON FUM/FOLIC AC 1 EACH TABLET GT (09:18)
[2023-08-02] MEDS: SENNOSIDES 8.6 MG TABLET GT ×2 (09:18→20:28)
--- NOTE | 2023-08-02 13:54 | PC.SS ---
Room visit: Resident is laying in bed with head of the bed elevated with call light properly placed. Resident is well groomed with no signs of distress. Resident mood is adequate with no changes. Resident continues to receive daily room visits and will be monitored for any changes in care or condition. Plan is for resident to remain in current care as resident remains total care unable to make needs known.
--- NOTE | 2023-08-02 13:55 | CHAP ---
Patient was visited by the Spiritual Care Volunteer who prayed for him. (Volunteer was in the hospital from 10:20-11:20; 12:45-13:55).
--- NOTE | 2023-08-02 22:56 | PD.SAPROG ---
Progress Note - SubAcute DIAGNOSIS (1) Traumatic brain injury: Status: Chronic SUBJECTIVE Fever:: none GI:: none Shortness of Breath:: none GI:: no complaints Pain:: none OBJECTIVE Most recent vital signs: Last Vital Signs Temp 97.3 F 08/02/23 17:30 Pulse 69 08/02/23 21:05 Resp 18 08/02/23 21:05 BP 106/69 08/02/23 17:30 Pulse Ox 93 L 08/02/23 21:05 O2 Del Method Blow-by 07/28/23 06:00 O2 Flow Rate 10 08/02/23 21:05 FiO2 35 08/02/23 21:05 Neurological:: awake Speech:: none Answers questions:: sometimes (Sometimes opens eyes to command.) Respiratory:: lungs clear Cardiovascular: RRR Abdomen: soft and nontender Extremities:: deformities Decubitus:: none Tracheostomy:: to blow by Feeding per:: G tube Complaints:: none ASSESSMENT & PLAN Assessment: Stable status. No improvement in cognitive function. Diagnosis and treatment reviewed. Prognosis poor. Plan: Current treatment continued as ongoing
[2023-08-03] VITALS (10 sets, daily range): BP systolic 92–130; BP diastolic 60–82; PULSE 59–81; RESP 18; TEMP 36.5–36.7; O2SAT 89–100
[2023-08-03] MEDS: FISH OIL GT (08:09)
[2023-08-03] MEDS: DEXLANSOPRAZOLE 30 MG GT (08:09)
[2023-08-03] MEDS: [UNRECOGNIZED DRUG - OTHER] BOTH EYES ×2 (08:09→20:17)
[2023-08-03] MEDS: BORAGE GT (08:09)
[2023-08-03] MEDS: [UNRECOGNIZED DRUG - OTHER] GT (08:09)
[2023-08-03] MEDS: TEARS BOTH EYES ×2 (08:09→20:17)
[2023-08-03] MEDS: FLAX GT (08:09)
[2023-08-03] MEDS: SENNOSIDES 8.6 MG TABLET GT ×2 (08:10→20:17)
[2023-08-03] MEDS: MULTIVIT-MIN/IRON FUM/FOLIC AC 1 EACH TABLET GT (08:10)
[2023-08-03] MEDS: LOSARTAN 25 MG TABLET GT (08:10)
[2023-08-03] MEDS: MAGNESIUM HYDROXIDE 30 ML ORAL SUSP ML GT (08:11)
[2023-08-03] MEDS: PROPRANOLOL 10 MG TABLET 20 MG GT ×2 (13:36→20:17)
[2023-08-04] VITALS (12 sets, daily range): BP systolic 102–132; BP diastolic 67–86; PULSE 60–86; RESP 18; TEMP 36.1–36.9; O2SAT 97–99
[2023-08-04] MEDS: PROPRANOLOL 10 MG TABLET 20 MG GT ×3 (05:12→21:13)
[2023-08-04] MEDS: DEXLANSOPRAZOLE 30 MG GT (09:05)
[2023-08-04] MEDS: BORAGE GT (09:05)
[2023-08-04] MEDS: LOSARTAN 25 MG TABLET GT (09:05)
[2023-08-04] MEDS: FISH OIL GT (09:05)
[2023-08-04] MEDS: [UNRECOGNIZED DRUG - OTHER] GT (09:05)
[2023-08-04] MEDS: FLAX GT (09:05)
[2023-08-04] MEDS: TEARS BOTH EYES ×2 (09:05→20:48)
[2023-08-04] MEDS: [UNRECOGNIZED DRUG - OTHER] BOTH EYES ×2 (09:05→20:48)
[2023-08-04] MEDS: SENNOSIDES 8.6 MG TABLET GT ×2 (09:06→20:48)
[2023-08-04] MEDS: MULTIVIT-MIN/IRON FUM/FOLIC AC 1 EACH TABLET GT (09:06)
[2023-08-05] VITALS (11 sets, daily range): BP systolic 101–125; BP diastolic 63–82; PULSE 58–91; RESP 17–20; TEMP 36.2–36.6; O2SAT 97–99
[2023-08-05] MEDS: PROPRANOLOL 10 MG TABLET 20 MG GT ×3 (05:31→19:57)
[2023-08-05] MEDS: [UNRECOGNIZED DRUG - OTHER] BOTH EYES ×2 (08:34→19:57)
[2023-08-05] MEDS: TEARS BOTH EYES ×2 (08:34→19:57)
[2023-08-05] MEDS: DEXLANSOPRAZOLE 30 MG GT (08:34)
[2023-08-05] MEDS: FISH OIL GT (08:35)
[2023-08-05] MEDS: BORAGE GT (08:35)
[2023-08-05] MEDS: FLAX GT (08:35)
[2023-08-05] MEDS: [UNRECOGNIZED DRUG - OTHER] GT (08:35)
[2023-08-05] MEDS: MULTIVIT-MIN/IRON FUM/FOLIC AC 1 EACH TABLET GT (08:36)
[2023-08-05] MEDS: SENNOSIDES 8.6 MG TABLET GT ×2 (08:36→19:57)
[2023-08-06] VITALS (11 sets, daily range): BP systolic 97–137; BP diastolic 58–80; PULSE 55–96; RESP 16–20; TEMP 35.9–36.6; O2SAT 97–100
[2023-08-06] MEDS: PROPRANOLOL 10 MG TABLET 20 MG GT ×2 (04:55→14:29)
[2023-08-06] MEDS: BORAGE GT (08:26)
[2023-08-06] MEDS: FLAX GT (08:26)
[2023-08-06] MEDS: LOSARTAN 25 MG TABLET GT (08:26)
[2023-08-06] MEDS: FISH OIL GT (08:26)
[2023-08-06] MEDS: DEXLANSOPRAZOLE 30 MG GT (08:26)
[2023-08-06] MEDS: [UNRECOGNIZED DRUG - OTHER] GT (08:26)
[2023-08-06] MEDS: [UNRECOGNIZED DRUG - OTHER] BOTH EYES ×2 (08:26→20:28)
[2023-08-06] MEDS: TEARS BOTH EYES ×2 (08:26→20:28)
[2023-08-06] MEDS: ACETAMINOPHEN 325 MG TABLET 650 MG GT (08:27)
[2023-08-06] MEDS: MULTIVIT-MIN/IRON FUM/FOLIC AC 1 EACH TABLET GT (08:27)
[2023-08-06] MEDS: SENNOSIDES 8.6 MG TABLET GT ×2 (08:27→20:29)
--- NOTE | 2023-08-06 22:25 | PD.SAPROG ---
Progress Note - SubAcute DIAGNOSIS (1) Traumatic brain injury: Status: Chronic SUBJECTIVE Fever:: none GI:: none Shortness of Breath:: none GI:: no complaints Pain:: none OBJECTIVE Most recent vital signs: Last Vital Signs Temp 97.9 F 08/06/23 22:00 Pulse 81 08/06/23 22:00 Resp 20 08/06/23 22:00 BP 124/80 08/06/23 22:00 Pulse Ox 97 08/06/23 19:13 O2 Del Method Blow-by 08/05/23 17:36 O2 Flow Rate 10 08/06/23 19:13 FiO2 35 08/06/23 19:13 Neurological:: awake Speech:: none Answers questions:: sometimes (Sometimes opens eyes to command.) Respiratory:: lungs clear Cardiovascular: RRR Abdomen: soft and nontender Extremities:: deformities Decubitus:: none Tracheostomy:: to blow by Feeding per:: G tube Complaints:: none ASSESSMENT & PLAN Assessment: Stable status. No improvement in cognitive function. Diagnosis and treatment reviewed. Prognosis poor. Plan: Current treatment continued as ongoing
[2023-08-07] VITALS (12 sets, daily range): BP systolic 97–126; BP diastolic 62–84; PULSE 63–111; RESP 17–20; TEMP 36.1–36.8; O2SAT 94–97
[2023-08-07] MEDS: PROPRANOLOL 10 MG TABLET 20 MG GT ×3 (05:20→21:06)
[2023-08-07] MEDS: TEARS BOTH EYES ×2 (08:08→20:20)
[2023-08-07] MEDS: [UNRECOGNIZED DRUG - OTHER] BOTH EYES ×2 (08:08→20:20)
[2023-08-07] MEDS: FLAX GT (08:09)
[2023-08-07] MEDS: [UNRECOGNIZED DRUG - OTHER] GT (08:09)
[2023-08-07] MEDS: DEXLANSOPRAZOLE 30 MG GT (08:09)
[2023-08-07] MEDS: BORAGE GT (08:09)
[2023-08-07] MEDS: FISH OIL GT (08:09)
[2023-08-07] MEDS: SENNOSIDES 8.6 MG TABLET GT ×2 (08:10→20:20)
[2023-08-07] MEDS: MULTIVIT-MIN/IRON FUM/FOLIC AC 1 EACH TABLET GT (08:10)
--- NOTE | 2023-08-07 17:42 | PC.CWCCOMPLE ---
Admission Specialist Pharmacist [facility]
[2023-08-08] VITALS (11 sets, daily range): BP systolic 103–131; BP diastolic 65–80; PULSE 62–87; RESP 18–20; TEMP 36.1–36.3; O2SAT 94–96
[2023-08-08] MEDS: PROPRANOLOL 10 MG TABLET 20 MG GT ×3 (05:32→21:07)
[2023-08-08] MEDS: TEARS BOTH EYES ×2 (08:06→20:30)
[2023-08-08] MEDS: [UNRECOGNIZED DRUG - OTHER] GT (08:06)
[2023-08-08] MEDS: [UNRECOGNIZED DRUG - OTHER] BOTH EYES ×2 (08:06→20:30)
[2023-08-08] MEDS: SENNOSIDES 8.6 MG TABLET GT ×2 (08:06→20:30)
[2023-08-08] MEDS: BORAGE GT (08:06)
[2023-08-08] MEDS: MULTIVIT-MIN/IRON FUM/FOLIC AC 1 EACH TABLET GT (08:06)
[2023-08-08] MEDS: DEXLANSOPRAZOLE 30 MG GT (08:06)
[2023-08-08] MEDS: FISH OIL GT (08:06)
[2023-08-08] MEDS: FLAX GT (08:06)
--- NOTE | 2023-08-08 14:39 | CHAP ---
11:00 AM visited by spiritual care volunteer. Patient sleeping peacefully. She provided a silent prayer by patient bed .
[2023-08-09] VITALS (13 sets, daily range): BP systolic 112–133; BP diastolic 65–82; PULSE 61–86; RESP 16–20; TEMP 36.2–36.8; O2SAT 95–97
[2023-08-09] MEDS: PROPRANOLOL 10 MG TABLET 20 MG GT ×3 (05:23→22:13)
[2023-08-09] MEDS: BORAGE GT (09:15)
[2023-08-09] MEDS: [UNRECOGNIZED DRUG - OTHER] BOTH EYES ×2 (09:15→20:25)
[2023-08-09] MEDS: DEXLANSOPRAZOLE 30 MG GT (09:15)
[2023-08-09] MEDS: FISH OIL GT (09:15)
[2023-08-09] MEDS: FLAX GT (09:15)
[2023-08-09] MEDS: TEARS BOTH EYES ×2 (09:15→20:25)
[2023-08-09] MEDS: [UNRECOGNIZED DRUG - OTHER] GT (09:15)
[2023-08-09] MEDS: LOSARTAN 25 MG TABLET GT (09:15)
[2023-08-09] MEDS: MULTIVIT-MIN/IRON FUM/FOLIC AC 1 EACH TABLET GT (09:16)
[2023-08-09] MEDS: SENNOSIDES 8.6 MG TABLET GT ×2 (09:16→20:26)
--- NOTE | 2023-08-09 15:02 | PC.SS ---
Room visit: Resident is laying in bed with head of the bed elevated with call light properly placed. Resident is not showing any changes in mood or behavior. Resident will remain in current care as there are no changes in care or condition, resident will continue to be evaluated as appropriate for DC to lower level of care. This SSD will continue to make daily contact and offer support as needed.
[2023-08-10] VITALS (10 sets, daily range): BP systolic 95–133; BP diastolic 58–76; PULSE 53–96; RESP 18–22; TEMP 36.2–36.9; O2SAT 96–98
[2023-08-10] MEDS: PROPRANOLOL 10 MG TABLET 20 MG GT ×2 (05:15→23:00)
[2023-08-10] MEDS: MAGNESIUM HYDROXIDE 30 ML ORAL SUSP ML GT (08:51)
[2023-08-10] MEDS: [UNRECOGNIZED DRUG - OTHER] GT (08:53)
[2023-08-10] MEDS: [UNRECOGNIZED DRUG - OTHER] BOTH EYES ×2 (08:53→20:30)
[2023-08-10] MEDS: BORAGE GT (08:53)
[2023-08-10] MEDS: FISH OIL GT (08:53)
[2023-08-10] MEDS: DEXLANSOPRAZOLE 30 MG GT (08:53)
[2023-08-10] MEDS: TEARS BOTH EYES ×2 (08:53→20:30)
[2023-08-10] MEDS: FLAX GT (08:53)
[2023-08-10] MEDS: MULTIVIT-MIN/IRON FUM/FOLIC AC 1 EACH TABLET GT (08:55)
[2023-08-10] MEDS: SENNOSIDES 8.6 MG TABLET GT ×2 (08:55→20:30)
--- NOTE | 2023-08-10 22:56 | PD.SAPROG ---
Progress Note - SubAcute SUBJECTIVE Fever:: none GI:: none Shortness of Breath:: none GI:: no complaints Pain:: none OBJECTIVE Most recent vital signs: Last Vital Signs Temp 97.8 F 08/12/23 22:00 Pulse 61 08/12/23 22:00 Resp 16 08/12/23 22:00 BP 95/65 08/12/23 22:00 Pulse Ox 96 08/12/23 18:30 O2 Del Method Blow-by 08/12/23 17:58 O2 Flow Rate 10 08/12/23 18:30 FiO2 35 08/12/23 18:30 Neurological:: awake Speech:: none Answers questions:: sometimes (Sometimes opens eyes to command.) Respiratory:: lungs clear Cardiovascular: RRR Abdomen: soft and nontender Extremities:: deformities Decubitus:: none Tracheostomy:: to blow by Feeding per:: G tube Complaints:: none ASSESSMENT & PLAN Assessment: Stable status. No improvement in cognitive function. Diagnosis and treatment reviewed. Prognosis poor. Plan: Current treatment continued as ongoing
[2023-08-11] VITALS (13 sets, daily range): BP systolic 91–121; BP diastolic 55–78; PULSE 57–89; RESP 16–20; TEMP 36.1–36.5; O2SAT 95–100
[2023-08-11] MEDS: PROPRANOLOL 10 MG TABLET 20 MG GT ×2 (05:13→15:17)
[2023-08-11] MEDS: LOSARTAN 25 MG TABLET GT (07:57)
[2023-08-11] MEDS: TEARS BOTH EYES ×2 (07:57→21:06)
[2023-08-11] MEDS: [UNRECOGNIZED DRUG - OTHER] BOTH EYES ×2 (07:57→21:06)
[2023-08-11] MEDS: DEXLANSOPRAZOLE 30 MG GT (07:57)
[2023-08-11] MEDS: FISH OIL GT (07:57)
[2023-08-11] MEDS: [UNRECOGNIZED DRUG - OTHER] GT (07:57)
[2023-08-11] MEDS: BORAGE GT (07:57)
[2023-08-11] MEDS: FLAX GT (07:57)
[2023-08-11] MEDS: SENNOSIDES 8.6 MG TABLET GT ×2 (07:58→20:28)
[2023-08-11] MEDS: MULTIVIT-MIN/IRON FUM/FOLIC AC 1 EACH TABLET GT (07:58)
[2023-08-12] VITALS (13 sets, daily range): BP systolic 95–129; BP diastolic 64–79; PULSE 60–88; RESP 1–20; TEMP 36.2–36.9; O2SAT 96–99
[2023-08-12] MEDS: PROPRANOLOL 10 MG TABLET 20 MG GT ×4 (00:06→20:28)
[2023-08-12] MEDS: MAGNESIUM HYDROXIDE 30 ML ORAL SUSP ML GT (00:07)
[2023-08-12] MEDS: FLAX GT (08:10)
[2023-08-12] MEDS: BORAGE GT (08:10)
[2023-08-12] MEDS: DEXLANSOPRAZOLE 30 MG GT (08:10)
[2023-08-12] MEDS: [UNRECOGNIZED DRUG - OTHER] GT (08:10)
[2023-08-12] MEDS: [UNRECOGNIZED DRUG - OTHER] BOTH EYES ×2 (08:10→20:27)
[2023-08-12] MEDS: TEARS BOTH EYES ×2 (08:10→20:27)
[2023-08-12] MEDS: FISH OIL GT (08:10)
[2023-08-12] MEDS: MULTIVIT-MIN/IRON FUM/FOLIC AC 1 EACH TABLET GT (08:11)
[2023-08-12] MEDS: SENNOSIDES 8.6 MG TABLET GT ×2 (08:11→20:27)
[2023-08-13] VITALS (11 sets, daily range): BP systolic 96–122; BP diastolic 59–76; PULSE 54–80; RESP 16–20; TEMP 36.2–36.5; O2SAT 94–98
[2023-08-13] MEDS: PROPRANOLOL 10 MG TABLET 20 MG GT ×3 (06:00→21:12)
[2023-08-13] MEDS: [UNRECOGNIZED DRUG - OTHER] BOTH EYES ×2 (09:05→20:31)
[2023-08-13] MEDS: TEARS BOTH EYES ×2 (09:05→20:31)
[2023-08-13] MEDS: DEXLANSOPRAZOLE 30 MG GT (09:06)
[2023-08-13] MEDS: [UNRECOGNIZED DRUG - OTHER] GT (09:06)
[2023-08-13] MEDS: BORAGE GT (09:06)
[2023-08-13] MEDS: FLAX GT (09:06)
[2023-08-13] MEDS: FISH OIL GT (09:06)
[2023-08-13] MEDS: MULTIVIT-MIN/IRON FUM/FOLIC AC 1 EACH TABLET GT (09:07)
[2023-08-13] MEDS: SENNOSIDES 8.6 MG TABLET GT ×2 (09:07→20:32)
[2023-08-14] VITALS (12 sets, daily range): BP systolic 91–136; BP diastolic 63–79; PULSE 57–82; RESP 18–19; TEMP 36.1–36.3; O2SAT 95–97
[2023-08-14] MEDS: PROPRANOLOL 10 MG TABLET 20 MG GT ×3 (05:34→21:08)
[2023-08-14 05:49] LABS: Basophils # (Auto) 0.1 Thou/mm3 (0.0-0.2); Basophils % (Auto) 1 % (0-2.5); Eosinophils # (Auto) 0.4 Thou/mm3 (0.0-0.5); Eosinophils % (Auto) 6 % (0-10); Hematocrit 42.4 % (41.0-53.0); Hemoglobin 14.5 g/dL (13.5-16.0); Immature Granulocytes Auto 0.02 Thou/mm3 (0.00-0.00); Lymphocytes # (Auto) 2.2 Thou/mm3 (1.0-4.8); Lymphocytes % (Auto) 29 % (10-50); Mean Corpuscular HGB Conc 34.2 g/dl (31.0-37.0); Mean Corpuscular Hemoglobin 31.5 pg (25.0-35.0); Mean Corpuscular Volume 92 fL (80-100); Monocytes # (Auto) 0.6 Thou/mm3 (0.0-0.8); Monocytes % (Auto) 8 % (0-12); Neutrophils # (Auto) 4.2 Thou/mm3 (1.8-7.7); Neutrophils % (Auto) 56 % (37-80); Nucleated Red Blood Cell # 0.00 Thou/mm3 (0.00-0.00); Nucleated Red Blood Cell % 0 /100 WBC (0); Platelet Count 227 Thou/mm3 (140-440); RDW Standard Deviation 43.5 fL (35.1-43.9); Red Blood Count 4.61 Miln/mm3 (4.50-5.90); White Blood Count 7.4 Thou/mm3 (3.8-10.6)
[2023-08-14 06:15] LABS: Alanine Aminotransferase 28 U/L (10-49); Albumin, Serum 3.8 gm/dL (3.5-5.0); Albumin/Globulin Ratio 1.2 (1.2-2.2); Alkaline Phosphatase 117 U/L (46-116); Anion Gap 8 (7-16); Aspartate Amino Transferase < 8 U/L (0-34); BUN/Creatinine Ratio 13 Ratio (12-20); Bilirubin,Total 0.4 mg/dL (0.3-1.2); Blood Urea Nitrogen 8 mg/dL (9-23); Calcium 9.4 mg/dL (8.3-10.6); Calcium (Corrected) 9.6 mg/dL (8.5-10.1); Carbon Dioxide 28.8 mMol/L (20.0-31.0); Chloride 105 mMol/L (98-107); Creatinine (Component) 0.6 mg/dL (0.6-1.3); Estimated Creatinine Clearance 139.3 mL/min (>60); Globulin 3.2 gm/dL (2.3-3.5); Glucose 120 mg/dL (74-106); Osmolality,Calculated 282 (275-295); Potassium 3.7 mMol/L (3.4-5.1); Sodium 142 mMol/L (136-145); Total Protein 7.0 gm/dL (5.7-8.2); eGFR > 60 See Note
[2023-08-14] MEDS: TEARS BOTH EYES ×2 (08:22→20:39)
[2023-08-14] MEDS: [UNRECOGNIZED DRUG - OTHER] BOTH EYES ×2 (08:22→20:39)
[2023-08-14] MEDS: [UNRECOGNIZED DRUG - OTHER] GT (08:23)
[2023-08-14] MEDS: DEXLANSOPRAZOLE 30 MG GT (08:23)
[2023-08-14] MEDS: FLAX GT (08:23)
[2023-08-14] MEDS: BORAGE GT (08:23)
[2023-08-14] MEDS: FISH OIL GT (08:23)
[2023-08-14] MEDS: MULTIVIT-MIN/IRON FUM/FOLIC AC 1 EACH TABLET GT (08:24)
[2023-08-14] MEDS: SENNOSIDES 8.6 MG TABLET GT ×2 (08:25→20:40)
[2023-08-14] MEDS: MAGNESIUM HYDROXIDE 30 ML ORAL SUSP ML GT (21:38)
[2023-08-15] VITALS (11 sets, daily range): BP systolic 110–138; BP diastolic 59–78; PULSE 54–88; RESP 16–19; TEMP 36.2–36.5; O2SAT 95–97
[2023-08-15] MEDS: BORAGE GT (08:33)
[2023-08-15] MEDS: FISH OIL GT (08:33)
[2023-08-15] MEDS: LOSARTAN 25 MG TABLET GT (08:33)
[2023-08-15] MEDS: FLAX GT (08:33)
[2023-08-15] MEDS: [UNRECOGNIZED DRUG - OTHER] BOTH EYES ×2 (08:33→20:35)
[2023-08-15] MEDS: DEXLANSOPRAZOLE 30 MG GT (08:33)
[2023-08-15] MEDS: TEARS BOTH EYES ×2 (08:33→20:35)
[2023-08-15] MEDS: [UNRECOGNIZED DRUG - OTHER] GT (08:33)
[2023-08-15] MEDS: MULTIVIT-MIN/IRON FUM/FOLIC AC 1 EACH TABLET GT (08:34)
[2023-08-15] MEDS: SENNOSIDES 8.6 MG TABLET GT ×2 (08:34→20:35)
[2023-08-15] MEDS: ACETAMINOPHEN 325 MG TABLET 650 MG GT (08:35)
--- NOTE | 2023-08-15 14:02 | CHAP ---
11:00 AM Visited by spiritual care volunteer Provided prayer for Patient.
[2023-08-15] MEDS: PROPRANOLOL 10 MG TABLET 20 MG GT ×2 (14:03→21:09)
[2023-08-16] VITALS (9 sets, daily range): BP systolic 104–124; BP diastolic 56–72; PULSE 64–80; RESP 18–21; TEMP 36.2–36.8; O2SAT 97–98
[2023-08-16] MEDS: PROPRANOLOL 10 MG TABLET 20 MG GT ×3 (05:16→21:09)
[2023-08-16] MEDS: TEARS BOTH EYES ×2 (08:13→21:09)
[2023-08-16] MEDS: [UNRECOGNIZED DRUG - OTHER] BOTH EYES ×2 (08:13→21:09)
[2023-08-16] MEDS: [UNRECOGNIZED DRUG - OTHER] GT (08:14)
[2023-08-16] MEDS: FLAX GT (08:14)
[2023-08-16] MEDS: DEXLANSOPRAZOLE 30 MG GT (08:14)
[2023-08-16] MEDS: FISH OIL GT (08:14)
[2023-08-16] MEDS: LOSARTAN 25 MG TABLET GT (08:14)
[2023-08-16] MEDS: BORAGE GT (08:14)
[2023-08-16] MEDS: SENNOSIDES 8.6 MG TABLET GT ×2 (08:15→21:09)
[2023-08-16] MEDS: MULTIVIT-MIN/IRON FUM/FOLIC AC 1 EACH TABLET GT (08:15)
--- NOTE | 2023-08-16 14:35 | PC.SS ---
Resident is laying in bed with head of the bed elevated with call light properly placed. Resident is well groomed showing no signs of distress. Resident will remain in current care as there are no changes in care or condition. Resident will continue to receive daily room visits to monitor moods and behavior.
[2023-08-16] MEDS: MAGNESIUM HYDROXIDE 30 ML ORAL SUSP ML GT (21:12)
[2023-08-17] VITALS (10 sets, daily range): BP systolic 100–135; BP diastolic 61–84; PULSE 57–73; RESP 16–18; TEMP 36.3–37.1; O2SAT 97–99
[2023-08-17] MEDS: PROPRANOLOL 10 MG TABLET 20 MG GT ×3 (05:39→21:24)
[2023-08-17] MEDS: DEXLANSOPRAZOLE 30 MG GT (09:27)
[2023-08-17] MEDS: BORAGE GT (09:27)
[2023-08-17] MEDS: TEARS BOTH EYES ×2 (09:27→20:24)
[2023-08-17] MEDS: FLAX GT (09:27)
[2023-08-17] MEDS: [UNRECOGNIZED DRUG - OTHER] BOTH EYES ×2 (09:27→20:24)
[2023-08-17] MEDS: FISH OIL GT (09:27)
[2023-08-17] MEDS: [UNRECOGNIZED DRUG - OTHER] GT (09:27)
[2023-08-17] MEDS: MULTIVIT-MIN/IRON FUM/FOLIC AC 1 EACH TABLET GT (09:29)
[2023-08-17] MEDS: SENNOSIDES 8.6 MG TABLET GT ×2 (09:29→20:24)
--- NOTE | 2023-08-17 20:40 | PD.SAPROG ---
Progress Note - SubAcute SUBJECTIVE Fever:: none GI:: none Shortness of Breath:: none GI:: no complaints Pain:: none OBJECTIVE Most recent vital signs: Last Vital Signs Temp 98.0 F 08/17/23 18:00 Pulse 60 08/17/23 18:00 Resp 16 08/17/23 18:00 BP 100/61 08/17/23 18:00 Pulse Ox 97 08/17/23 18:00 O2 Del Method Blow-by 08/15/23 05:34 O2 Flow Rate 10 08/17/23 06:05 FiO2 35 08/17/23 06:05 Neurological:: awake Speech:: none Answers questions:: sometimes (Sometimes opens eyes to command.) Respiratory:: lungs clear Cardiovascular: RRR Abdomen: soft and nontender Extremities:: deformities Decubitus:: none Tracheostomy:: to blow by Feeding per:: G tube Complaints:: none ASSESSMENT & PLAN Assessment: Stable status. No improvement in cognitive function. Diagnosis and treatment reviewed. Prognosis poor. Plan: Current treatment continued as ongoing
[2023-08-18] VITALS (10 sets, daily range): BP systolic 98–110; BP diastolic 63–74; PULSE 53–73; RESP 17–18; TEMP 36.1–36.8; O2SAT 95–99
[2023-08-18] MEDS: SODIUM PHOSPHATE,MONO-DIBASIC 133 ML ENEMA PR (03:46)
[2023-08-18] MEDS: BORAGE GT (09:37)
[2023-08-18] MEDS: FLAX GT (09:37)
[2023-08-18] MEDS: [UNRECOGNIZED DRUG - OTHER] GT (09:37)
[2023-08-18] MEDS: FISH OIL GT (09:37)
[2023-08-18] MEDS: TEARS BOTH EYES ×2 (09:37→20:44)
[2023-08-18] MEDS: [UNRECOGNIZED DRUG - OTHER] BOTH EYES ×2 (09:37→20:44)
[2023-08-18] MEDS: DEXLANSOPRAZOLE 30 MG GT (09:37)
[2023-08-18] MEDS: MULTIVIT-MIN/IRON FUM/FOLIC AC 1 EACH TABLET GT (09:38)
[2023-08-18] MEDS: SENNOSIDES 8.6 MG TABLET GT ×2 (09:38→20:44)
--- NOTE | 2023-08-18 12:43 | CHAP ---
Patient was visited by the Spiritual Care Volunteer who prayed for them outside of room. (Volunteer was in the hospital from 11:05-12:43)
[2023-08-18] MEDS: PROPRANOLOL 10 MG TABLET 20 MG GT (13:44)
[2023-08-19] VITALS (10 sets, daily range): BP systolic 95–119; BP diastolic 60–69; PULSE 58–76; RESP 16–19; TEMP 36–36.3; O2SAT 96–97
[2023-08-19] MEDS: [UNRECOGNIZED DRUG - OTHER] BOTH EYES ×2 (08:36→20:48)
[2023-08-19] MEDS: TEARS BOTH EYES ×2 (08:36→20:48)
[2023-08-19] MEDS: LOSARTAN 25 MG TABLET GT (08:36)
[2023-08-19] MEDS: DEXLANSOPRAZOLE 30 MG GT (08:36)
[2023-08-19] MEDS: FLAX GT (08:36)
[2023-08-19] MEDS: FISH OIL GT (08:36)
[2023-08-19] MEDS: BORAGE GT (08:36)
[2023-08-19] MEDS: [UNRECOGNIZED DRUG - OTHER] GT (08:36)
[2023-08-19] MEDS: SENNOSIDES 8.6 MG TABLET GT ×2 (08:37→20:48)
[2023-08-19] MEDS: MULTIVIT-MIN/IRON FUM/FOLIC AC 1 EACH TABLET GT (08:37)
[2023-08-19] MEDS: PROPRANOLOL 10 MG TABLET 20 MG GT (22:35)
[2023-08-20] VITALS (10 sets, daily range): BP systolic 96–131; BP diastolic 59–74; PULSE 60–84; RESP 17–24; TEMP 36.3–37.1; O2SAT 88–96
[2023-08-20] MEDS: PROPRANOLOL 10 MG TABLET 20 MG GT ×2 (05:16→23:04)
[2023-08-20] MEDS: ALBUTEROL INHALER 200 PUFF/INH INHALER INH (07:00)
[2023-08-20] MEDS: [UNRECOGNIZED DRUG - OTHER] GT (08:01)
[2023-08-20] MEDS: FLAX GT (08:01)
[2023-08-20] MEDS: DEXLANSOPRAZOLE 30 MG GT (08:01)
[2023-08-20] MEDS: FISH OIL GT (08:01)
[2023-08-20] MEDS: [UNRECOGNIZED DRUG - OTHER] BOTH EYES ×2 (08:01→20:52)
[2023-08-20] MEDS: BORAGE GT (08:01)
[2023-08-20] MEDS: TEARS BOTH EYES ×2 (08:01→20:52)
[2023-08-20] MEDS: MULTIVIT-MIN/IRON FUM/FOLIC AC 1 EACH TABLET GT (08:02)
[2023-08-20] MEDS: MAGNESIUM HYDROXIDE 30 ML ORAL SUSP ML GT (08:03)
[2023-08-20] MEDS: SENNOSIDES 8.6 MG TABLET GT ×2 (08:03→20:53)
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
[2023-08-21] VITALS (12 sets, daily range): BP systolic 91–135; BP diastolic 54–75; PULSE 62–81; RESP 18–20; TEMP 36.2–37; O2SAT 92–96
[2023-08-21] MEDS: PROPRANOLOL 10 MG TABLET 20 MG GT ×3 (05:28→21:23)
[2023-08-21] MEDS: TEARS BOTH EYES ×2 (08:29→20:55)
[2023-08-21] MEDS: [UNRECOGNIZED DRUG - OTHER] BOTH EYES ×2 (08:29→20:55)
[2023-08-21] MEDS: DEXLANSOPRAZOLE 30 MG GT (08:30)
[2023-08-21] MEDS: BORAGE GT (08:30)
[2023-08-21] MEDS: FISH OIL GT (08:30)
[2023-08-21] MEDS: LOSARTAN 25 MG TABLET GT (08:30)
[2023-08-21] MEDS: FLAX GT (08:30)
[2023-08-21] MEDS: [UNRECOGNIZED DRUG - OTHER] GT (08:30)
[2023-08-21] MEDS: SENNOSIDES 8.6 MG TABLET GT ×2 (08:31→20:55)
[2023-08-21] MEDS: MULTIVIT-MIN/IRON FUM/FOLIC AC 1 EACH TABLET GT (08:31)
--- NOTE | 2023-08-21 22:35 | PD.SAPROG ---
Progress Note - SubAcute SUBJECTIVE Fever:: none GI:: none Shortness of Breath:: none GI:: no complaints Pain:: none OBJECTIVE Most recent vital signs: Last Vital Signs Temp 97.7 F 08/21/23 17:57 Pulse 62 08/21/23 21:23 Resp 18 08/21/23 18:55 BP 123/72 08/21/23 21:23 Pulse Ox 95 08/21/23 18:55 O2 Del Method Blow-by 08/21/23 05:31 O2 Flow Rate 10 08/21/23 18:55 FiO2 35 08/21/23 18:55 Neurological:: awake Speech:: none Answers questions:: sometimes (Sometimes opens eyes to command.) Respiratory:: lungs clear Cardiovascular: RRR Abdomen: soft and nontender Extremities:: deformities Decubitus:: none Tracheostomy:: to blow by Feeding per:: G tube Complaints:: none ASSESSMENT & PLAN Assessment: Stable status. No improvement in cognitive function. Diagnosis and treatment reviewed. Prognosis poor. Plan: Current treatment continued as ongoing
[2023-08-22] VITALS (9 sets, daily range): BP systolic 94–134; BP diastolic 59–72; PULSE 53–64; RESP 17–19; TEMP 36.1–36.7; O2SAT 95–99
[2023-08-22] MEDS: [UNRECOGNIZED DRUG - OTHER] GT (08:32)
[2023-08-22] MEDS: BORAGE GT (08:32)
[2023-08-22] MEDS: LOSARTAN 25 MG TABLET GT (08:32)
[2023-08-22] MEDS: FLAX GT (08:32)
[2023-08-22] MEDS: DEXLANSOPRAZOLE 30 MG GT (08:32)
[2023-08-22] MEDS: FISH OIL GT (08:32)
[2023-08-22] MEDS: [UNRECOGNIZED DRUG - OTHER] BOTH EYES ×2 (08:32→20:57)
[2023-08-22] MEDS: TEARS BOTH EYES ×2 (08:32→20:57)
[2023-08-22] MEDS: SENNOSIDES 8.6 MG TABLET GT ×2 (08:33→20:57)
[2023-08-22] MEDS: MULTIVIT-MIN/IRON FUM/FOLIC AC 1 EACH TABLET GT (08:33)
--- NOTE | 2023-08-22 13:47 | CHAP ---
11:00 AM Visited by spiritual care volunteer Provided prayer for Patient.
[2023-08-22] MEDS: PROPRANOLOL 10 MG TABLET 20 MG GT (14:14)
[2023-08-23] VITALS (10 sets, daily range): BP systolic 96–142; BP diastolic 59–77; PULSE 56–85; RESP 15–20; TEMP 36.2–36.7; O2SAT 95–99
[2023-08-23] MEDS: TEARS BOTH EYES ×2 (08:20→21:19)
[2023-08-23] MEDS: [UNRECOGNIZED DRUG - OTHER] GT (08:20)
[2023-08-23] MEDS: FISH OIL GT (08:20)
[2023-08-23] MEDS: FLAX GT (08:20)
[2023-08-23] MEDS: DEXLANSOPRAZOLE 30 MG GT (08:20)
[2023-08-23] MEDS: BORAGE GT (08:20)
[2023-08-23] MEDS: [UNRECOGNIZED DRUG - OTHER] BOTH EYES ×2 (08:20→21:19)
[2023-08-23] MEDS: LOSARTAN 25 MG TABLET GT (08:21)
[2023-08-23] MEDS: MULTIVIT-MIN/IRON FUM/FOLIC AC 1 EACH TABLET GT (08:21)
[2023-08-23] MEDS: SENNOSIDES 8.6 MG TABLET GT ×2 (08:21→21:19)
[2023-08-23] MEDS: ACETAMINOPHEN 325 MG TABLET 650 MG GT (08:22)
[2023-08-23] MEDS: PROPRANOLOL 10 MG TABLET 20 MG GT ×2 (13:46→21:20)
[2023-08-24] VITALS (11 sets, daily range): BP systolic 98–125; BP diastolic 58–77; PULSE 64–87; RESP 16–20; TEMP 36.1–36.6; O2SAT 93–97
[2023-08-24] MEDS: PROPRANOLOL 10 MG TABLET 20 MG GT ×2 (05:00→21:02)
[2023-08-24] MEDS: TEARS BOTH EYES ×2 (09:16→20:29)
[2023-08-24] MEDS: [UNRECOGNIZED DRUG - OTHER] BOTH EYES ×2 (09:16→20:29)
[2023-08-24] MEDS: FISH OIL GT (09:16)
[2023-08-24] MEDS: [UNRECOGNIZED DRUG - OTHER] GT (09:16)
[2023-08-24] MEDS: DEXLANSOPRAZOLE 30 MG GT (09:16)
[2023-08-24] MEDS: BORAGE GT (09:16)
[2023-08-24] MEDS: FLAX GT (09:16)
[2023-08-24] MEDS: SENNOSIDES 8.6 MG TABLET GT ×2 (09:17→20:29)
[2023-08-24] MEDS: MULTIVIT-MIN/IRON FUM/FOLIC AC 1 EACH TABLET GT (09:17)
[2023-08-24] MEDS: MAGNESIUM HYDROXIDE 30 ML ORAL SUSP ML GT (09:18)
[2023-08-25] VITALS (9 sets, daily range): BP systolic 93–118; BP diastolic 60–69; PULSE 65–81; RESP 18–20; TEMP 36–36.2; O2SAT 94–99
[2023-08-25] MEDS: PROPRANOLOL 10 MG TABLET 20 MG GT ×3 (05:11→21:42)
[2023-08-25] MEDS: TEARS BOTH EYES ×2 (09:29→20:23)
[2023-08-25] MEDS: DEXLANSOPRAZOLE 30 MG GT (09:29)
[2023-08-25] MEDS: [UNRECOGNIZED DRUG - OTHER] BOTH EYES ×2 (09:29→20:23)
[2023-08-25] MEDS: FLAX GT (09:29)
[2023-08-25] MEDS: [UNRECOGNIZED DRUG - OTHER] GT (09:29)
[2023-08-25] MEDS: FISH OIL GT (09:29)
[2023-08-25] MEDS: BORAGE GT (09:29)
[2023-08-25] MEDS: MULTIVIT-MIN/IRON FUM/FOLIC AC 1 EACH TABLET GT (09:31)
[2023-08-25] MEDS: SENNOSIDES 8.6 MG TABLET GT ×2 (09:31→20:23)
--- NOTE | 2023-08-25 10:45 | CHAP ---
Patient was visited by the Spiritual Care Volunteer who prayed for them outside the room. (Volunteer was in the hospital 09:50-10:45)
--- NOTE | 2023-08-25 17:14 | PD.SAPROG ---
Progress Note - SubAcute SUBJECTIVE Fever:: none GI:: none Shortness of Breath:: none GI:: no complaints Pain:: none OBJECTIVE Most recent vital signs: Last Vital Signs Temp 96.8 F 08/25/23 12:00 Pulse 72 08/25/23 13:38 Resp 18 08/25/23 12:00 BP 103/62 08/25/23 13:38 Pulse Ox 98 08/25/23 06:00 O2 Del Method Blow-by 08/25/23 05:25 O2 Flow Rate 10 08/25/23 06:00 FiO2 35 08/25/23 06:00 Neurological:: awake Speech:: none Answers questions:: sometimes (Sometimes opens eyes to command.) Respiratory:: lungs clear Cardiovascular: RRR Abdomen: soft and nontender Extremities:: deformities Decubitus:: none Tracheostomy:: to blow by Feeding per:: G tube Complaints:: none ASSESSMENT & PLAN Assessment: Stable status. No improvement in cognitive function. Diagnosis and treatment reviewed. Prognosis poor. Plan: Current treatment continued as ongoing
[2023-08-26] VITALS (12 sets, daily range): BP systolic 101–127; BP diastolic 65–74; PULSE 57–94; RESP 16–20; TEMP 36.1–36.6; O2SAT 96–98
[2023-08-26] MEDS: FISH OIL GT (08:30)
[2023-08-26] MEDS: TEARS BOTH EYES ×2 (08:30→20:49)
[2023-08-26] MEDS: DEXLANSOPRAZOLE 30 MG GT (08:30)
[2023-08-26] MEDS: FLAX GT (08:30)
[2023-08-26] MEDS: [UNRECOGNIZED DRUG - OTHER] GT (08:30)
[2023-08-26] MEDS: BORAGE GT (08:30)
[2023-08-26] MEDS: LOSARTAN 25 MG TABLET GT (08:30)
[2023-08-26] MEDS: [UNRECOGNIZED DRUG - OTHER] BOTH EYES ×2 (08:30→20:49)
[2023-08-26] MEDS: SENNOSIDES 8.6 MG TABLET GT ×2 (08:31→20:49)
[2023-08-26] MEDS: MULTIVIT-MIN/IRON FUM/FOLIC AC 1 EACH TABLET GT (08:31)
[2023-08-26] MEDS: PROPRANOLOL 10 MG TABLET 20 MG GT ×2 (15:10→21:55)
[2023-08-27] VITALS (10 sets, daily range): BP systolic 109–121; BP diastolic 67–79; PULSE 62–82; RESP 16–20; TEMP 36.2–36.3; O2SAT 95–99
[2023-08-27] MEDS: PROPRANOLOL 10 MG TABLET 20 MG GT ×3 (05:42→21:57)
[2023-08-27] MEDS: TEARS BOTH EYES ×2 (09:08→21:58)
[2023-08-27] MEDS: [UNRECOGNIZED DRUG - OTHER] BOTH EYES ×2 (09:08→21:58)
[2023-08-27] MEDS: FISH OIL GT (09:09)
[2023-08-27] MEDS: LOSARTAN 25 MG TABLET GT (09:09)
[2023-08-27] MEDS: FLAX GT (09:09)
[2023-08-27] MEDS: BORAGE GT (09:09)
[2023-08-27] MEDS: DEXLANSOPRAZOLE 30 MG GT (09:09)
[2023-08-27] MEDS: [UNRECOGNIZED DRUG - OTHER] GT (09:09)
[2023-08-27] MEDS: MULTIVIT-MIN/IRON FUM/FOLIC AC 1 EACH TABLET GT (09:10)
[2023-08-27] MEDS: SENNOSIDES 8.6 MG TABLET GT (09:10)
[2023-08-28] VITALS (11 sets, daily range): BP systolic 97–132; BP diastolic 56–75; PULSE 59–81; RESP 16–20; TEMP 36.2–36.4; O2SAT 95–98
[2023-08-28] MEDS: PROPRANOLOL 10 MG TABLET 20 MG GT ×2 (06:02→20:35)
[2023-08-28] MEDS: FLAX GT (08:06)
[2023-08-28] MEDS: DEXLANSOPRAZOLE 30 MG GT (08:06)
[2023-08-28] MEDS: TEARS BOTH EYES ×2 (08:06→20:34)
[2023-08-28] MEDS: BORAGE GT (08:06)
[2023-08-28] MEDS: FISH OIL GT (08:06)
[2023-08-28] MEDS: [UNRECOGNIZED DRUG - OTHER] BOTH EYES ×2 (08:06→20:34)
[2023-08-28] MEDS: [UNRECOGNIZED DRUG - OTHER] GT (08:06)
[2023-08-28] MEDS: SENNOSIDES 8.6 MG TABLET GT ×2 (08:07→20:34)
[2023-08-28] MEDS: ACETAMINOPHEN 325 MG TABLET 650 MG GT (08:07)
[2023-08-28] MEDS: MULTIVIT-MIN/IRON FUM/FOLIC AC 1 EACH TABLET GT (08:07)
--- NOTE | 2023-08-28 13:55 | PC.SS ---
Resident seen by [facility]/Dr. Trimble, had teeth cleaning done with no new orders or recommendations. Resident tolerated treatment well.
[2023-08-29] VITALS (9 sets, daily range): BP systolic 93–126; BP diastolic 60–72; PULSE 59–80; RESP 18–20; TEMP 36.2–36.5; O2SAT 95–97
[2023-08-29] MEDS: PROPRANOLOL 10 MG TABLET 20 MG GT ×3 (05:23→21:27)
[2023-08-29] MEDS: FLAX GT (08:12)
[2023-08-29] MEDS: DEXLANSOPRAZOLE 30 MG GT (08:12)
[2023-08-29] MEDS: BORAGE GT (08:12)
[2023-08-29] MEDS: FISH OIL GT (08:12)
[2023-08-29] MEDS: TEARS BOTH EYES ×2 (08:12→20:27)
[2023-08-29] MEDS: [UNRECOGNIZED DRUG - OTHER] GT (08:12)
[2023-08-29] MEDS: [UNRECOGNIZED DRUG - OTHER] BOTH EYES ×2 (08:12→20:27)
[2023-08-29] MEDS: MULTIVIT-MIN/IRON FUM/FOLIC AC 1 EACH TABLET GT (08:13)
[2023-08-29] MEDS: SENNOSIDES 8.6 MG TABLET GT ×2 (08:13→20:27)
--- NOTE | 2023-08-29 21:53 | PD.SAPROG ---
Progress Note - SubAcute SUBJECTIVE Fever:: none GI:: none Shortness of Breath:: none GI:: no complaints Pain:: none OBJECTIVE Most recent vital signs: Last Vital Signs Temp 97.4 F 08/29/23 17:44 Pulse 65 08/29/23 21:27 Resp 18 08/29/23 17:44 BP 126/72 08/29/23 21:27 Pulse Ox 97 08/29/23 17:44 O2 Del Method Blow-by 08/29/23 06:00 O2 Flow Rate 10 08/29/23 06:10 FiO2 35 08/29/23 06:10 Neurological:: awake Speech:: none Answers questions:: sometimes (Sometimes opens eyes to command.) Respiratory:: lungs clear Cardiovascular: RRR Abdomen: soft and nontender Extremities:: deformities Decubitus:: none Tracheostomy:: to blow by Feeding per:: G tube Complaints:: none ASSESSMENT & PLAN Assessment: Stable status. No improvement in cognitive function. Diagnosis and treatment reviewed. Prognosis poor. Plan: Current treatment continued as ongoing
[2023-08-30] VITALS (11 sets, daily range): BP systolic 93–111; BP diastolic 55–75; PULSE 55–72; RESP 16–20; TEMP 36.3–36.4; O2SAT 94–96
[2023-08-30] MEDS: [UNRECOGNIZED DRUG - OTHER] BOTH EYES ×2 (08:55→21:38)
[2023-08-30] MEDS: TEARS BOTH EYES ×2 (08:55→21:38)
[2023-08-30] MEDS: DEXLANSOPRAZOLE 30 MG GT (08:56)
[2023-08-30] MEDS: FISH OIL GT (08:57)
[2023-08-30] MEDS: BORAGE GT (08:57)
[2023-08-30] MEDS: FLAX GT (08:57)
[2023-08-30] MEDS: [UNRECOGNIZED DRUG - OTHER] GT (08:57)
[2023-08-30] MEDS: MULTIVIT-MIN/IRON FUM/FOLIC AC 1 EACH TABLET GT (08:58)
[2023-08-30] MEDS: SENNOSIDES 8.6 MG TABLET GT ×2 (08:58→21:38)
[2023-08-30] MEDS: PROPRANOLOL 10 MG TABLET 20 MG GT (13:51)
--- NOTE | 2023-08-30 16:53 | PC.SS ---
Room visit: Resident is laying in bed with head of the bed elevated with call light properly placed with no signs of distress. Resident mood and behavior is adequate, no changes. Resident will remain in current care as this resident is total care and requires 24 hour care. Resident will have all needs met by staff and will be offered daily room visits for any support needed.
[2023-08-30] MEDS: MAGNESIUM HYDROXIDE 30 ML ORAL SUSP ML GT (21:38)
[2023-08-31] VITALS (10 sets, daily range): BP systolic 92–124; BP diastolic 62–77; PULSE 54–81; RESP 16–18; TEMP 36.4–36.5; O2SAT 94–99
[2023-08-31] MEDS: PROPRANOLOL 10 MG TABLET 20 MG GT (05:22)
[2023-08-31] MEDS: [UNRECOGNIZED DRUG - OTHER] GT (08:26)
[2023-08-31] MEDS: FISH OIL GT (08:26)
[2023-08-31] MEDS: [UNRECOGNIZED DRUG - OTHER] BOTH EYES ×2 (08:26→20:34)
[2023-08-31] MEDS: FLAX GT (08:26)
[2023-08-31] MEDS: TEARS BOTH EYES ×2 (08:26→20:34)
[2023-08-31] MEDS: DEXLANSOPRAZOLE 30 MG GT (08:26)
[2023-08-31] MEDS: BORAGE GT (08:26)
[2023-08-31] MEDS: MULTIVIT-MIN/IRON FUM/FOLIC AC 1 EACH TABLET GT (08:27)
[2023-08-31] MEDS: LOSARTAN 25 MG TABLET GT (08:27)
[2023-08-31] MEDS: SENNOSIDES 8.6 MG TABLET GT ×2 (08:27→20:35)
[2023-09-01] VITALS (9 sets, daily range): BP systolic 95–123; BP diastolic 61–74; PULSE 59–73; RESP 16–18; TEMP 36.1–36.6; O2SAT 98–99
[2023-09-01] MEDS: PROPRANOLOL 10 MG TABLET 20 MG GT ×3 (05:23→21:13)
[2023-09-01] MEDS: FLAX GT (08:23)
[2023-09-01] MEDS: [UNRECOGNIZED DRUG - OTHER] GT (08:23)
[2023-09-01] MEDS: BORAGE GT (08:23)
[2023-09-01] MEDS: DEXLANSOPRAZOLE 30 MG GT (08:23)
[2023-09-01] MEDS: FISH OIL GT (08:23)
[2023-09-01] MEDS: MULTIVIT-MIN/IRON FUM/FOLIC AC 1 EACH TABLET GT (08:23)
[2023-09-01] MEDS: SENNOSIDES 8.6 MG TABLET GT ×2 (08:24→20:01)
[2023-09-01] MEDS: TEARS BOTH EYES ×2 (09:00→20:00)
[2023-09-01] MEDS: [UNRECOGNIZED DRUG - OTHER] BOTH EYES ×2 (09:00→20:00)
--- NOTE | 2023-09-01 11:45 | CHAP ---
Patient was prayed for outside of room by the Spiritual Care Volunteer. (Volunteer was in the hospital from 10:24-11:45).
[2023-09-01] MEDS: MAGNESIUM HYDROXIDE 30 ML ORAL SUSP ML GT (18:00)
[2023-09-02] VITALS (11 sets, daily range): BP systolic 97–140; BP diastolic 45–82; PULSE 59–94; RESP 16–19; TEMP 36.1–36.4; O2SAT 92–98
[2023-09-02] MEDS: PROPRANOLOL 10 MG TABLET 20 MG GT ×2 (05:16→13:11)
[2023-09-02] MEDS: TEARS BOTH EYES ×2 (08:15→20:38)
[2023-09-02] MEDS: [UNRECOGNIZED DRUG - OTHER] BOTH EYES ×2 (08:15→20:38)
[2023-09-02] MEDS: BORAGE GT (08:16)
[2023-09-02] MEDS: LOSARTAN 25 MG TABLET GT (08:16)
[2023-09-02] MEDS: FISH OIL GT (08:16)
[2023-09-02] MEDS: [UNRECOGNIZED DRUG - OTHER] GT (08:16)
[2023-09-02] MEDS: FLAX GT (08:16)
[2023-09-02] MEDS: DEXLANSOPRAZOLE 30 MG GT (08:16)
[2023-09-02] MEDS: SENNOSIDES 8.6 MG TABLET GT ×2 (08:17→20:38)
[2023-09-02] MEDS: MULTIVIT-MIN/IRON FUM/FOLIC AC 1 EACH TABLET GT (08:17)
[2023-09-02] MEDS: CARBAMIDE PEROXIDE OTIC SOL 15 ML BTL 5 DROP BOTH EARS ×2 (08:19→20:37)
--- NOTE | 2023-09-02 16:45 | PD.SAPROG ---
Progress Note - SubAcute SUBJECTIVE Fever:: none GI:: none Shortness of Breath:: none GI:: no complaints Pain:: none OBJECTIVE Most recent vital signs: Last Vital Signs Temp 97.6 F 09/03/23 06:00 Pulse 73 09/03/23 06:00 Resp 18 09/03/23 06:00 BP 89/47 L 09/03/23 06:00 Pulse Ox 96 09/03/23 06:00 O2 Del Method Blow-by 09/02/23 18:00 O2 Flow Rate 10 09/02/23 19:35 FiO2 35 09/02/23 19:35 Neurological:: awake Speech:: none Answers questions:: sometimes (Sometimes opens eyes to command.) Respiratory:: lungs clear Cardiovascular: RRR Abdomen: soft and nontender Extremities:: deformities Decubitus:: none Tracheostomy:: to blow by Feeding per:: G tube Complaints:: none ASSESSMENT & PLAN Assessment: Stable status. No improvement in cognitive function. Diagnosis and treatment reviewed. Prognosis poor. Plan: Current treatment continued as ongoing
[2023-09-03] VITALS (10 sets, daily range): BP systolic 89–115; BP diastolic 47–70; PULSE 60–85; RESP 16–18; TEMP 36.4–36.8; O2SAT 94–98
[2023-09-03] MEDS: TEARS BOTH EYES ×2 (08:01→20:53)
[2023-09-03] MEDS: LOSARTAN 25 MG TABLET GT (08:01)
[2023-09-03] MEDS: FLAX GT (08:01)
[2023-09-03] MEDS: BORAGE GT (08:01)
[2023-09-03] MEDS: [UNRECOGNIZED DRUG - OTHER] GT (08:01)
[2023-09-03] MEDS: DEXLANSOPRAZOLE 30 MG GT (08:01)
[2023-09-03] MEDS: FISH OIL GT (08:01)
[2023-09-03] MEDS: [UNRECOGNIZED DRUG - OTHER] BOTH EYES ×2 (08:01→20:53)
[2023-09-03] MEDS: MULTIVIT-MIN/IRON FUM/FOLIC AC 1 EACH TABLET GT (08:02)
[2023-09-03] MEDS: SENNOSIDES 8.6 MG TABLET GT ×2 (08:02→20:53)
[2023-09-03] MEDS: CARBAMIDE PEROXIDE OTIC SOL 15 ML BTL 5 DROP BOTH EARS ×2 (08:04→20:53)
[2023-09-03] MEDS: PROPRANOLOL 10 MG TABLET 20 MG GT ×2 (14:38→22:20)
[2023-09-04] VITALS (11 sets, daily range): BP systolic 96–126; BP diastolic 62–78; PULSE 52–90; RESP 17–21; TEMP 36.3–36.9; O2SAT 95–98
[2023-09-04] MEDS: PROPRANOLOL 10 MG TABLET 20 MG GT ×3 (05:03→22:00)
[2023-09-04] MEDS: CARBAMIDE PEROXIDE OTIC SOL 15 ML BTL 5 DROP BOTH EARS (08:28)
[2023-09-04] MEDS: TEARS BOTH EYES ×2 (08:29→20:53)
[2023-09-04] MEDS: [UNRECOGNIZED DRUG - OTHER] BOTH EYES ×2 (08:29→20:53)
[2023-09-04] MEDS: DEXLANSOPRAZOLE 30 MG GT (08:29)
[2023-09-04] MEDS: MULTIVIT-MIN/IRON FUM/FOLIC AC 1 EACH TABLET GT (08:30)
[2023-09-04] MEDS: FLAX GT (08:30)
[2023-09-04] MEDS: BORAGE GT (08:30)
[2023-09-04] MEDS: [UNRECOGNIZED DRUG - OTHER] GT (08:30)
[2023-09-04] MEDS: FISH OIL GT (08:30)
[2023-09-04] MEDS: LOSARTAN 25 MG TABLET GT (08:30)
[2023-09-04] MEDS: SENNOSIDES 8.6 MG TABLET GT ×2 (08:31→20:53)
--- NOTE | 2023-09-04 14:20 | PC.SS ---
Room visit: Resident is laying in bed with head of the bed elevated, resident has call light properly placed with no no signs of distress. Resident will remain in current care as there are no changes in care or condition. Resident is total care, all needs to be met in facility for LTC. Resident is unable to return home due to family unable to care for at home. Resident will continue to have daily room visit and will be offered support visit as needed.
[2023-09-04] MEDS: MAGNESIUM HYDROXIDE 30 ML ORAL SUSP ML GT (20:52)
[2023-09-05] VITALS (9 sets, daily range): BP systolic 98–113; BP diastolic 57–70; PULSE 52–88; RESP 17–20; TEMP 36.4–36.7; O2SAT 92–96
[2023-09-05] MEDS: PROPRANOLOL 10 MG TABLET 20 MG GT ×3 (05:21→23:50)
[2023-09-05] MEDS: FISH OIL GT (09:08)
[2023-09-05] MEDS: [UNRECOGNIZED DRUG - OTHER] BOTH EYES ×2 (09:08→20:53)
[2023-09-05] MEDS: MULTIVIT-MIN/IRON FUM/FOLIC AC 1 EACH TABLET GT (09:08)
[2023-09-05] MEDS: SENNOSIDES 8.6 MG TABLET GT ×2 (09:08→20:54)
[2023-09-05] MEDS: TEARS BOTH EYES ×2 (09:08→20:53)
[2023-09-05] MEDS: DEXLANSOPRAZOLE 30 MG GT (09:08)
[2023-09-05] MEDS: BORAGE GT (09:08)
[2023-09-05] MEDS: [UNRECOGNIZED DRUG - OTHER] GT (09:08)
[2023-09-05] MEDS: FLAX GT (09:08)
[2023-09-06] VITALS (11 sets, daily range): BP systolic 97–123; BP diastolic 61–71; PULSE 53–83; RESP 16–20; TEMP 36.3–36.6; O2SAT 94–99
[2023-09-06] MEDS: CARBAMIDE PEROXIDE OTIC SOL 15 ML BTL 5 DROP BOTH EARS (00:07)
[2023-09-06] MEDS: PROPRANOLOL 10 MG TABLET 20 MG GT ×3 (07:06→21:44)
[2023-09-06] MEDS: [UNRECOGNIZED DRUG - OTHER] BOTH EYES ×2 (08:34→20:52)
[2023-09-06] MEDS: FLAX GT (08:34)
[2023-09-06] MEDS: TEARS BOTH EYES ×2 (08:34→20:52)
[2023-09-06] MEDS: DEXLANSOPRAZOLE 30 MG GT (08:34)
[2023-09-06] MEDS: BORAGE GT (08:34)
[2023-09-06] MEDS: FISH OIL GT (08:34)
[2023-09-06] MEDS: [UNRECOGNIZED DRUG - OTHER] GT (08:34)
[2023-09-06] MEDS: MULTIVIT-MIN/IRON FUM/FOLIC AC 1 EACH TABLET GT (08:35)
[2023-09-06] MEDS: SENNOSIDES 8.6 MG TABLET GT ×2 (08:35→20:53)
--- NOTE | 2023-09-06 14:10 | PD.SAPROG ---
Progress Note - SubAcute SUBJECTIVE Fever:: none GI:: none Shortness of Breath:: none GI:: no complaints Pain:: none OBJECTIVE Most recent vital signs: Last Vital Signs Temp 97 F 09/08/23 05:53 Pulse 77 09/08/23 09:01 Resp 18 09/08/23 05:53 BP 99/67 09/08/23 09:01 Pulse Ox 97 09/08/23 05:53 O2 Del Method Blow-by 09/08/23 05:53 O2 Flow Rate 10 09/08/23 05:53 FiO2 35 09/08/23 05:53 Neurological:: awake Speech:: none Answers questions:: sometimes (Sometimes opens eyes to command.) Respiratory:: lungs clear Cardiovascular: RRR Abdomen: soft and nontender Extremities:: deformities Decubitus:: none Tracheostomy:: to blow by Feeding per:: G tube Complaints:: none ASSESSMENT & PLAN Assessment: Stable status. No improvement in cognitive function. Diagnosis and treatment reviewed. Prognosis poor. Plan: Current treatment continued as ongoing
[2023-09-07] VITALS (9 sets, daily range): BP systolic 94–129; BP diastolic 60–74; PULSE 54–77; RESP 16–19; TEMP 36.3–36.4; O2SAT 95–99
[2023-09-07] MEDS: TEARS BOTH EYES ×2 (08:25→20:42)
[2023-09-07] MEDS: [UNRECOGNIZED DRUG - OTHER] BOTH EYES ×2 (08:25→20:42)
[2023-09-07] MEDS: DEXLANSOPRAZOLE 30 MG GT (08:25)
[2023-09-07] MEDS: [UNRECOGNIZED DRUG - OTHER] GT (08:26)
[2023-09-07] MEDS: LOSARTAN 25 MG TABLET GT (08:26)
[2023-09-07] MEDS: MULTIVIT-MIN/IRON FUM/FOLIC AC 1 EACH TABLET GT (08:26)
[2023-09-07] MEDS: BORAGE GT (08:26)
[2023-09-07] MEDS: FLAX GT (08:26)
[2023-09-07] MEDS: SENNOSIDES 8.6 MG TABLET GT ×2 (08:26→20:43)
[2023-09-07] MEDS: FISH OIL GT (08:26)
[2023-09-07] MEDS: PROPRANOLOL 10 MG TABLET 20 MG GT (21:08)
[2023-09-08] VITALS (10 sets, daily range): BP systolic 99–144; BP diastolic 67–82; PULSE 59–77; RESP 16–20; TEMP 36.1–36.6; O2SAT 97–98
[2023-09-08] MEDS: MAGNESIUM HYDROXIDE 30 ML ORAL SUSP ML GT (00:52)
[2023-09-08] MEDS: PROPRANOLOL 10 MG TABLET 20 MG GT ×3 (05:05→22:45)
[2023-09-08] MEDS: DEXLANSOPRAZOLE 30 MG GT (09:00)
[2023-09-08] MEDS: [UNRECOGNIZED DRUG - OTHER] BOTH EYES ×2 (09:00→20:28)
[2023-09-08] MEDS: [UNRECOGNIZED DRUG - OTHER] GT (09:00)
[2023-09-08] MEDS: FISH OIL GT (09:00)
[2023-09-08] MEDS: FLAX GT (09:00)
[2023-09-08] MEDS: BORAGE GT (09:00)
[2023-09-08] MEDS: TEARS BOTH EYES ×2 (09:00→20:28)
[2023-09-08] MEDS: MULTIVIT-MIN/IRON FUM/FOLIC AC 1 EACH TABLET GT (09:01)
[2023-09-08] MEDS: SENNOSIDES 8.6 MG TABLET GT ×2 (09:02→20:28)
--- NOTE | 2023-09-08 10:29 | CHAP ---
Patient was visited by the Spiritual Care Volunteer who prayed for them. (Volunteer was in the hospital from 09:00-10:29).
[2023-09-09] VITALS (10 sets, daily range): BP systolic 98–113; BP diastolic 62–69; PULSE 59–78; RESP 18; TEMP 36.4–36.6; O2SAT 99–100
[2023-09-09] MEDS: PROPRANOLOL 10 MG TABLET 20 MG GT ×2 (05:49→14:57)
[2023-09-09] MEDS: BORAGE GT (08:55)
[2023-09-09] MEDS: FISH OIL GT (08:55)
[2023-09-09] MEDS: LOSARTAN 25 MG TABLET GT (08:55)
[2023-09-09] MEDS: [UNRECOGNIZED DRUG - OTHER] BOTH EYES ×2 (08:55→20:40)
[2023-09-09] MEDS: TEARS BOTH EYES ×2 (08:55→20:40)
[2023-09-09] MEDS: [UNRECOGNIZED DRUG - OTHER] GT (08:55)
[2023-09-09] MEDS: DEXLANSOPRAZOLE 30 MG GT (08:55)
[2023-09-09] MEDS: FLAX GT (08:55)
[2023-09-09] MEDS: MULTIVIT-MIN/IRON FUM/FOLIC AC 1 EACH TABLET GT (08:58)
[2023-09-09] MEDS: SENNOSIDES 8.6 MG TABLET GT ×2 (08:58→20:40)
[2023-09-10] VITALS (9 sets, daily range): BP systolic 101–132; BP diastolic 64–76; PULSE 59–81; RESP 17–20; TEMP 36.6–36.8; O2SAT 94–98
[2023-09-10] MEDS: PROPRANOLOL 10 MG TABLET 20 MG GT ×3 (05:14→21:27)
[2023-09-10] MEDS: TEARS BOTH EYES ×2 (08:28→20:47)
[2023-09-10] MEDS: [UNRECOGNIZED DRUG - OTHER] BOTH EYES ×2 (08:28→20:47)
[2023-09-10] MEDS: [UNRECOGNIZED DRUG - OTHER] GT (08:29)
[2023-09-10] MEDS: DEXLANSOPRAZOLE 30 MG GT (08:29)
[2023-09-10] MEDS: FISH OIL GT (08:29)
[2023-09-10] MEDS: FLAX GT (08:29)
[2023-09-10] MEDS: BORAGE GT (08:29)
[2023-09-10] MEDS: MULTIVIT-MIN/IRON FUM/FOLIC AC 1 EACH TABLET GT (08:30)
[2023-09-10] MEDS: SENNOSIDES 8.6 MG TABLET GT ×2 (08:30→20:48)
[2023-09-10] MEDS: MAGNESIUM HYDROXIDE 30 ML ORAL SUSP ML GT (08:53)
--- NOTE | 2023-09-10 16:16 | PD.SAPROG ---
Progress Note - SubAcute SUBJECTIVE Fever:: none GI:: none Shortness of Breath:: none GI:: no complaints Pain:: none OBJECTIVE Most recent vital signs: Last Vital Signs Temp 97.9 F 09/10/23 12:00 Pulse 74 09/10/23 13:52 Resp 17 09/10/23 12:00 BP 132/72 H 09/10/23 13:52 Pulse Ox 94 L 09/10/23 06:30 O2 Del Method Blow-by 09/09/23 17:20 O2 Flow Rate 10 09/10/23 13:33 FiO2 35 09/10/23 13:33 Neurological:: awake Speech:: none Answers questions:: sometimes (Sometimes opens eyes to command.) Respiratory:: lungs clear Cardiovascular: RRR Abdomen: soft and nontender Extremities:: deformities Decubitus:: none Tracheostomy:: to blow by Feeding per:: G tube Complaints:: none ASSESSMENT & PLAN Assessment: Stable status. No improvement in cognitive function. Diagnosis and treatment reviewed. Prognosis poor. Plan: Current treatment continued as ongoing
[2023-09-11] VITALS (11 sets, daily range): BP systolic 95–124; BP diastolic 57–82; PULSE 56–77; RESP 18–21; TEMP 36.2–36.9; O2SAT 95–98
[2023-09-11] MEDS: PROPRANOLOL 10 MG TABLET 20 MG GT ×2 (05:39→20:48)
[2023-09-11] MEDS: [UNRECOGNIZED DRUG - OTHER] BOTH EYES ×2 (08:25→20:47)
[2023-09-11] MEDS: TEARS BOTH EYES ×2 (08:25→20:47)
[2023-09-11] MEDS: BORAGE GT (08:27)
[2023-09-11] MEDS: DEXLANSOPRAZOLE 30 MG GT (08:27)
[2023-09-11] MEDS: FLAX GT (08:27)
[2023-09-11] MEDS: [UNRECOGNIZED DRUG - OTHER] GT (08:27)
[2023-09-11] MEDS: FISH OIL GT (08:27)
[2023-09-11] MEDS: MULTIVIT-MIN/IRON FUM/FOLIC AC 1 EACH TABLET GT (08:28)
[2023-09-11] MEDS: SENNOSIDES 8.6 MG TABLET GT ×2 (08:28→20:47)
--- NOTE | 2023-09-11 16:12 | PC.SS ---
Room Change: This SSD called resident daughter/RP Arlene Hinds to notify of room change. Resident moved from room 118B to room 120A, resident and roommate informed of room change. Arlene had no questions or concerns an has agreed with room change. All resident belongings are in place in room with him.
--- NOTE | 2023-09-11 22:07 | PC.CWCCOMPLE ---
[employer] Pharmacist monthly MRR
--- NOTE | 2023-09-11 22:08 | PC.CWCCOMPLE ---
[employer] Pharmacist monthly MRR
[2023-09-12] VITALS (9 sets, daily range): BP systolic 112–131; BP diastolic 68–84; PULSE 61–84; RESP 16–19; TEMP 36.3–36.6; O2SAT 95–99
[2023-09-12] MEDS: PROPRANOLOL 10 MG TABLET 20 MG GT ×3 (05:23→21:33)
[2023-09-12] MEDS: DEXLANSOPRAZOLE 30 MG GT (09:32)
[2023-09-12] MEDS: [UNRECOGNIZED DRUG - OTHER] BOTH EYES ×2 (09:32→21:33)
[2023-09-12] MEDS: TEARS BOTH EYES ×2 (09:32→21:33)
[2023-09-12] MEDS: FISH OIL GT (09:33)
[2023-09-12] MEDS: LOSARTAN 25 MG TABLET GT (09:33)
[2023-09-12] MEDS: FLAX GT (09:33)
[2023-09-12] MEDS: BORAGE GT (09:33)
[2023-09-12] MEDS: [UNRECOGNIZED DRUG - OTHER] GT (09:33)
[2023-09-12] MEDS: MULTIVIT-MIN/IRON FUM/FOLIC AC 1 EACH TABLET GT (09:34)
[2023-09-12] MEDS: SENNOSIDES 8.6 MG TABLET GT ×2 (09:34→21:33)
--- NOTE | 2023-09-12 09:53 | PD.SAPROG ---
Progress Note - SubAcute SUBJECTIVE Fever:: none GI:: none Shortness of Breath:: none GI:: no complaints Pain:: none OBJECTIVE Most recent vital signs: Last Vital Signs Temp 97.3 F 09/12/23 05:57 Pulse 80 09/12/23 09:33 Resp 16 09/12/23 05:57 BP 121/68 09/12/23 09:33 Pulse Ox 97 09/12/23 05:57 O2 Del Method Blow-by 09/11/23 06:00 O2 Flow Rate 10 09/11/23 18:33 FiO2 35 09/11/23 18:33 Neurological:: awake Speech:: none Answers questions:: sometimes (Sometimes opens eyes to command.) Respiratory:: lungs clear Cardiovascular: RRR Abdomen: soft and nontender Extremities:: deformities Decubitus:: none Tracheostomy:: to blow by Feeding per:: G tube Complaints:: none ASSESSMENT & PLAN Assessment: Stable status. No improvement in cognitive function. Diagnosis and treatment reviewed. Prognosis poor. Plan: Current treatment continued as ongoing
[2023-09-13] VITALS (11 sets, daily range): BP systolic 103–130; BP diastolic 67–85; PULSE 64–88; RESP 14–20; TEMP 36.1–36.6; O2SAT 95–97
[2023-09-13] MEDS: PROPRANOLOL 10 MG TABLET 20 MG GT ×3 (05:07→21:09)
[2023-09-13] MEDS: TEARS BOTH EYES ×2 (08:48→21:07)
[2023-09-13] MEDS: [UNRECOGNIZED DRUG - OTHER] BOTH EYES ×2 (08:48→21:07)
[2023-09-13] MEDS: DEXLANSOPRAZOLE 30 MG GT (08:49)
[2023-09-13] MEDS: LOSARTAN 25 MG TABLET GT (08:50)
[2023-09-13] MEDS: [UNRECOGNIZED DRUG - OTHER] GT (08:50)
[2023-09-13] MEDS: FISH OIL GT (08:50)
[2023-09-13] MEDS: BORAGE GT (08:50)
[2023-09-13] MEDS: MULTIVIT-MIN/IRON FUM/FOLIC AC 1 EACH TABLET GT (08:50)
[2023-09-13] MEDS: FLAX GT (08:50)
[2023-09-13] MEDS: SENNOSIDES 8.6 MG TABLET GT ×2 (08:51→21:08)
--- NOTE | 2023-09-13 15:14 | PC.SS ---
Resident is laying in bed with head of the bed elevated with call light properly placed with no signs of distress. Resident is well groomed and appears comfortable. Resident is total care unable to make needs known, due to heavy care regimen family is unable to care for resident at home. Resident has no changes in care or condition, resident to remain in current care and continue to be evaluated as appropriate for DC to lower level of care.
--- NOTE | 2023-09-13 15:20 | PC.SS ---
Room change: Resident is doing well with new room and roommate, appears to be compatible. Resident is not showing any changes in mood or behavior related to new surroundings.
[2023-09-14] VITALS (9 sets, daily range): BP systolic 96–144; BP diastolic 62–76; PULSE 63–84; RESP 16–20; TEMP 36.2–36.4; O2SAT 95–98
[2023-09-14] MEDS: PROPRANOLOL 10 MG TABLET 20 MG GT ×3 (05:06→20:34)
[2023-09-14] MEDS: FISH OIL GT (09:09)
[2023-09-14] MEDS: [UNRECOGNIZED DRUG - OTHER] GT (09:09)
[2023-09-14] MEDS: FLAX GT (09:09)
[2023-09-14] MEDS: DEXLANSOPRAZOLE 30 MG GT (09:09)
[2023-09-14] MEDS: [UNRECOGNIZED DRUG - OTHER] BOTH EYES ×2 (09:09→20:33)
[2023-09-14] MEDS: BORAGE GT (09:09)
[2023-09-14] MEDS: TEARS BOTH EYES ×2 (09:09→20:33)
[2023-09-14] MEDS: SENNOSIDES 8.6 MG TABLET GT ×2 (09:10→20:34)
[2023-09-14] MEDS: MULTIVIT-MIN/IRON FUM/FOLIC AC 1 EACH TABLET GT (09:10)
[2023-09-15] VITALS (10 sets, daily range): BP systolic 105–117; BP diastolic 64–76; PULSE 60–89; RESP 16–20; TEMP 36.2–36.6; O2SAT 97–99
[2023-09-15] MEDS: PROPRANOLOL 10 MG TABLET 20 MG GT ×3 (05:23→21:33)
[2023-09-15] MEDS: [UNRECOGNIZED DRUG - OTHER] BOTH EYES ×2 (09:08→20:34)
[2023-09-15] MEDS: TEARS BOTH EYES ×2 (09:08→20:34)
[2023-09-15] MEDS: FLAX GT (09:09)
[2023-09-15] MEDS: MULTIVIT-MIN/IRON FUM/FOLIC AC 1 EACH TABLET GT (09:09)
[2023-09-15] MEDS: DEXLANSOPRAZOLE 30 MG GT (09:09)
[2023-09-15] MEDS: BORAGE GT (09:09)
[2023-09-15] MEDS: [UNRECOGNIZED DRUG - OTHER] GT (09:09)
[2023-09-15] MEDS: SENNOSIDES 8.6 MG TABLET GT ×2 (09:09→20:34)
[2023-09-15] MEDS: LOSARTAN 25 MG TABLET GT (09:09)
[2023-09-15] MEDS: FISH OIL GT (09:09)
--- NOTE | 2023-09-15 10:44 | CHAP ---
Patient was visited by the Spiritual Care Volunteer who prayed for them. (Volunteer was in [facility] [place] from 9:35-10:44).
--- NOTE | 2023-09-15 12:55 | CHAP ---
Patient was visited by the Spiritual Care Volunteer who prayed for them. (Volunteer was in [facility] from 10:15-12:55).
[2023-09-16] VITALS (10 sets, daily range): BP systolic 96–127; BP diastolic 62–72; PULSE 59–88; RESP 17–20; TEMP 36.1–36.4; O2SAT 93–98
[2023-09-16] MEDS: PROPRANOLOL 10 MG TABLET 20 MG GT ×3 (05:35→21:42)
[2023-09-16] MEDS: TEARS BOTH EYES ×2 (08:26→20:52)
[2023-09-16] MEDS: [UNRECOGNIZED DRUG - OTHER] BOTH EYES ×2 (08:26→20:52)
[2023-09-16] MEDS: [UNRECOGNIZED DRUG - OTHER] GT (08:27)
[2023-09-16] MEDS: FISH OIL GT (08:27)
[2023-09-16] MEDS: DEXLANSOPRAZOLE 30 MG GT (08:27)
[2023-09-16] MEDS: BORAGE GT (08:27)
[2023-09-16] MEDS: FLAX GT (08:27)
[2023-09-16] MEDS: MULTIVIT-MIN/IRON FUM/FOLIC AC 1 EACH TABLET GT (08:28)
[2023-09-16] MEDS: SENNOSIDES 8.6 MG TABLET GT ×2 (08:29→20:52)
[2023-09-16] MEDS: MAGNESIUM HYDROXIDE 30 ML ORAL SUSP ML GT (18:16)
--- NOTE | 2023-09-16 18:24 | PD.SAPROG ---
Progress Note - SubAcute SUBJECTIVE Fever:: none GI:: none Shortness of Breath:: none GI:: no complaints Pain:: none OBJECTIVE Most recent vital signs: Last Vital Signs Temp 97.4 F 09/16/23 17:56 Pulse 74 09/16/23 17:56 Resp 17 09/16/23 17:56 BP 104/70 09/16/23 17:56 Pulse Ox 98 09/16/23 17:56 O2 Del Method Blow-by 09/16/23 06:00 O2 Flow Rate 10 09/16/23 06:25 FiO2 35 09/16/23 06:25 Neurological:: awake Speech:: none Answers questions:: sometimes (Sometimes opens eyes to command.) Respiratory:: lungs clear Cardiovascular: RRR Abdomen: soft and nontender Extremities:: deformities Decubitus:: none Tracheostomy:: to blow by Feeding per:: G tube Complaints:: none ASSESSMENT & PLAN Assessment: Stable status. No improvement in cognitive function. Diagnosis and treatment reviewed. Prognosis poor. Plan: Current treatment continued as ongoing
[2023-09-17] VITALS (9 sets, daily range): BP systolic 102–131; BP diastolic 59–81; PULSE 59–74; RESP 17–20; TEMP 36.3–36.5; O2SAT 95–96
[2023-09-17] MEDS: PROPRANOLOL 10 MG TABLET 20 MG GT ×3 (05:08→21:05)
[2023-09-17] MEDS: TEARS BOTH EYES ×2 (08:59→21:05)
[2023-09-17] MEDS: [UNRECOGNIZED DRUG - OTHER] BOTH EYES ×2 (08:59→21:05)
[2023-09-17] MEDS: DEXLANSOPRAZOLE 30 MG GT (08:59)
[2023-09-17] MEDS: BORAGE GT (09:01)
[2023-09-17] MEDS: FLAX GT (09:01)
[2023-09-17] MEDS: FISH OIL GT (09:01)
[2023-09-17] MEDS: [UNRECOGNIZED DRUG - OTHER] GT (09:01)
[2023-09-17] MEDS: MULTIVIT-MIN/IRON FUM/FOLIC AC 1 EACH TABLET GT (09:02)
[2023-09-17] MEDS: SENNOSIDES 8.6 MG TABLET GT ×2 (09:03→21:06)
[2023-09-18] VITALS (10 sets, daily range): BP systolic 104–135; BP diastolic 59–78; PULSE 54–105; RESP 18–20; TEMP 36.1–36.3; O2SAT 94–99
[2023-09-18] MEDS: PROPRANOLOL 10 MG TABLET 20 MG GT ×3 (05:18→21:13)
[2023-09-18] MEDS: DEXLANSOPRAZOLE 30 MG GT (08:32)
[2023-09-18] MEDS: [UNRECOGNIZED DRUG - OTHER] GT (08:32)
[2023-09-18] MEDS: BORAGE GT (08:32)
[2023-09-18] MEDS: FISH OIL GT (08:32)
[2023-09-18] MEDS: [UNRECOGNIZED DRUG - OTHER] BOTH EYES ×2 (08:32→20:20)
[2023-09-18] MEDS: FLAX GT (08:32)
[2023-09-18] MEDS: TEARS BOTH EYES ×2 (08:32→20:20)
[2023-09-18] MEDS: SENNOSIDES 8.6 MG TABLET GT ×2 (08:33→20:20)
[2023-09-18] MEDS: MULTIVIT-MIN/IRON FUM/FOLIC AC 1 EACH TABLET GT (08:33)
[2023-09-19] VITALS (11 sets, daily range): BP systolic 90–131; BP diastolic 58–75; PULSE 56–90; RESP 17–20; TEMP 36.2–36.7; O2SAT 94–97
[2023-09-19] MEDS: PROPRANOLOL 10 MG TABLET 20 MG GT ×3 (05:21→21:06)
[2023-09-19] MEDS: [UNRECOGNIZED DRUG - OTHER] BOTH EYES ×2 (08:34→20:18)
[2023-09-19] MEDS: TEARS BOTH EYES ×2 (08:34→20:18)
[2023-09-19] MEDS: FLAX GT (08:35)
[2023-09-19] MEDS: FISH OIL GT (08:35)
[2023-09-19] MEDS: [UNRECOGNIZED DRUG - OTHER] GT (08:35)
[2023-09-19] MEDS: SENNOSIDES 8.6 MG TABLET GT ×2 (08:35→20:19)
[2023-09-19] MEDS: LOSARTAN 25 MG TABLET GT (08:35)
[2023-09-19] MEDS: DEXLANSOPRAZOLE 30 MG GT (08:35)
[2023-09-19] MEDS: BORAGE GT (08:35)
[2023-09-19] MEDS: MULTIVIT-MIN/IRON FUM/FOLIC AC 1 EACH TABLET GT (08:35)
--- NOTE | 2023-09-19 14:39 | CHAP ---
10:30 AM Visited by spiritual care volunteer Provided prayer for Patient.
[2023-09-20] VITALS (9 sets, daily range): BP systolic 92–125; BP diastolic 63–78; PULSE 57–74; RESP 18–20; TEMP 36.1–36.6; O2SAT 94–100
[2023-09-20] MEDS: PROPRANOLOL 10 MG TABLET 20 MG GT ×2 (05:36→21:23)
[2023-09-20] MEDS: TEARS BOTH EYES ×2 (08:54→20:54)
[2023-09-20] MEDS: [UNRECOGNIZED DRUG - OTHER] BOTH EYES ×2 (08:54→20:54)
[2023-09-20] MEDS: DEXLANSOPRAZOLE 30 MG GT (08:54)
[2023-09-20] MEDS: [UNRECOGNIZED DRUG - OTHER] GT (08:55)
[2023-09-20] MEDS: BORAGE GT (08:55)
[2023-09-20] MEDS: FISH OIL GT (08:55)
[2023-09-20] MEDS: FLAX GT (08:55)
[2023-09-20] MEDS: SENNOSIDES 8.6 MG TABLET GT ×2 (08:56→20:54)
[2023-09-20] MEDS: MULTIVIT-MIN/IRON FUM/FOLIC AC 1 EACH TABLET GT (08:56)
[2023-09-20] MEDS: MAGNESIUM HYDROXIDE 30 ML ORAL SUSP ML GT (08:57)
--- NOTE | 2023-09-20 16:11 | PC.SS ---
[facility] dental here for dental x-rays. Resident is not alert and unable to participate in x-rays. Resident will be seen by DDS for annual consultations and as needed.
--- NOTE | 2023-09-20 16:24 | PC.SS ---
Room visit: Resident is laying in bed with head of the bed elevated with call light properly placed with no reza of distress. Resident has no changes in care or condition, resident will remain in current care due to heavy and complicated care regimen. Family visits but unable to care for resident at home. SSD will continue to monitor resident for any changes in mood or behavior.
--- NOTE | 2023-09-20 22:04 | PD.SAPROG ---
Progress Note - SubAcute SUBJECTIVE Fever:: none GI:: none Shortness of Breath:: none GI:: no complaints Pain:: none OBJECTIVE Most recent vital signs: Last Vital Signs Temp 97.0 F 09/20/23 17:55 Pulse 65 09/20/23 21:23 Resp 19 09/20/23 17:55 BP 125/74 09/20/23 21:23 Pulse Ox 100 09/20/23 17:55 O2 Del Method Blow-by 09/20/23 06:00 O2 Flow Rate 10 09/20/23 06:30 FiO2 35 09/20/23 06:30 Neurological:: awake Speech:: none Answers questions:: sometimes (Sometimes opens eyes to command.) Respiratory:: lungs clear Cardiovascular: RRR Abdomen: soft and nontender Extremities:: deformities Decubitus:: none Tracheostomy:: to blow by Feeding per:: G tube Complaints:: none ASSESSMENT & PLAN Assessment: Stable status. No improvement in cognitive function. Diagnosis and treatment reviewed. Prognosis poor. Plan: Current treatment continued as ongoing
[2023-09-21] VITALS (11 sets, daily range): BP systolic 98–116; BP diastolic 54–75; PULSE 60–72; RESP 17–18; TEMP 36.1–36.5; O2SAT 97–99
[2023-09-21] MEDS: PROPRANOLOL 10 MG TABLET 20 MG GT ×3 (05:17→21:35)
[2023-09-21] MEDS: BORAGE GT (08:23)
[2023-09-21] MEDS: FISH OIL GT (08:23)
[2023-09-21] MEDS: FLAX GT (08:23)
[2023-09-21] MEDS: [UNRECOGNIZED DRUG - OTHER] BOTH EYES ×2 (08:23→20:32)
[2023-09-21] MEDS: TEARS BOTH EYES ×2 (08:23→20:32)
[2023-09-21] MEDS: DEXLANSOPRAZOLE 30 MG GT (08:23)
[2023-09-21] MEDS: [UNRECOGNIZED DRUG - OTHER] GT (08:23)
[2023-09-21] MEDS: SENNOSIDES 8.6 MG TABLET GT ×2 (08:24→20:32)
[2023-09-21] MEDS: MULTIVIT-MIN/IRON FUM/FOLIC AC 1 EACH TABLET GT (08:24)
[2023-09-22] VITALS (10 sets, daily range): BP systolic 100–127; BP diastolic 60–81; PULSE 57–77; RESP 18–20; TEMP 36.3–36.8; O2SAT 95–99
[2023-09-22] MEDS: PROPRANOLOL 10 MG TABLET 20 MG GT ×3 (05:18→22:00)
[2023-09-22] MEDS: LOSARTAN 25 MG TABLET GT (08:57)
[2023-09-22] MEDS: BORAGE GT (08:57)
[2023-09-22] MEDS: FLAX GT (08:57)
[2023-09-22] MEDS: FISH OIL GT (08:57)
[2023-09-22] MEDS: [UNRECOGNIZED DRUG - OTHER] GT (08:57)
[2023-09-22] MEDS: MULTIVIT-MIN/IRON FUM/FOLIC AC 1 EACH TABLET GT (08:57)
[2023-09-22] MEDS: [UNRECOGNIZED DRUG - OTHER] BOTH EYES ×2 (08:57→22:00)
[2023-09-22] MEDS: TEARS BOTH EYES ×2 (08:57→22:00)
[2023-09-22] MEDS: DEXLANSOPRAZOLE 30 MG GT (08:57)
[2023-09-22] MEDS: SENNOSIDES 8.6 MG TABLET GT ×2 (08:58→22:00)
[2023-09-23] VITALS (11 sets, daily range): BP systolic 96–116; BP diastolic 58–65; PULSE 60–68; RESP 17–20; TEMP 36.1–36.6; O2SAT 96–100
[2023-09-23] MEDS: DEXLANSOPRAZOLE 30 MG GT (08:39)
[2023-09-23] MEDS: FLAX GT (08:39)
[2023-09-23] MEDS: TEARS BOTH EYES ×2 (08:39→20:49)
[2023-09-23] MEDS: BORAGE GT (08:39)
[2023-09-23] MEDS: FISH OIL GT (08:39)
[2023-09-23] MEDS: [UNRECOGNIZED DRUG - OTHER] BOTH EYES ×2 (08:39→20:49)
[2023-09-23] MEDS: [UNRECOGNIZED DRUG - OTHER] GT (08:39)
[2023-09-23] MEDS: MULTIVIT-MIN/IRON FUM/FOLIC AC 1 EACH TABLET GT (08:40)
[2023-09-23] MEDS: SENNOSIDES 8.6 MG TABLET GT ×2 (08:40→20:49)
[2023-09-23] MEDS: PROPRANOLOL 10 MG TABLET 20 MG GT ×2 (13:45→21:26)
[2023-09-24] VITALS (9 sets, daily range): BP systolic 95–121; BP diastolic 64–80; PULSE 61–73; RESP 18–19; TEMP 35.7–36.4; O2SAT 96–99
[2023-09-24] MEDS: PROPRANOLOL 10 MG TABLET 20 MG GT ×3 (05:19→21:23)
[2023-09-24] MEDS: TEARS BOTH EYES ×2 (09:06→20:46)
[2023-09-24] MEDS: FISH OIL GT (09:06)
[2023-09-24] MEDS: [UNRECOGNIZED DRUG - OTHER] BOTH EYES ×2 (09:06→20:46)
[2023-09-24] MEDS: FLAX GT (09:06)
[2023-09-24] MEDS: BORAGE GT (09:06)
[2023-09-24] MEDS: [UNRECOGNIZED DRUG - OTHER] GT (09:06)
[2023-09-24] MEDS: DEXLANSOPRAZOLE 30 MG GT (09:06)
[2023-09-24] MEDS: MULTIVIT-MIN/IRON FUM/FOLIC AC 1 EACH TABLET GT (09:07)
[2023-09-24] MEDS: SENNOSIDES 8.6 MG TABLET GT ×2 (09:08→20:46)
--- NOTE | 2023-09-24 16:55 | PC.NURSE ---
Applications Project Manager attempted to take resident to shower room for shower but resident needed frequent suctioning while senior mortgage underwriter was prepping for shower. RN made aware and agreed that resident could stay in room for bed bath to easily provided tracheal suctioning when needed. After bed bath, senior mortgage underwriter observed resident to be bleeding from trach site after forcefully coughing. RN made aware and observed that trach site possibly had hypergranulation and would need a wound care evaluation. Applications Project Manager able to suction resident via trach without resistance. Call light in reach.
--- NOTE | 2023-09-24 21:18 | PD.SAPROG ---
Progress Note - SubAcute SUBJECTIVE Fever:: none GI:: none Shortness of Breath:: none GI:: no complaints Pain:: none OBJECTIVE Most recent vital signs: Last Vital Signs Temp 97.6 F 09/24/23 18:00 Pulse 71 09/24/23 18:00 Resp 19 09/24/23 18:00 BP 117/70 09/24/23 18:00 Pulse Ox 99 09/24/23 18:00 O2 Del Method Blow-by 09/24/23 05:07 O2 Flow Rate 10 09/24/23 05:07 FiO2 35 09/24/23 05:07 Neurological:: awake Speech:: none Answers questions:: sometimes (Sometimes opens eyes to command.) Respiratory:: lungs clear Cardiovascular: RRR Abdomen: soft and nontender Extremities:: deformities Decubitus:: none Tracheostomy:: to blow by Feeding per:: G tube Complaints:: none ASSESSMENT & PLAN Assessment: Stable status. No improvement in cognitive function. Diagnosis and treatment reviewed. Prognosis poor. Plan: Current treatment continued as ongoing
[2023-09-25] VITALS (10 sets, daily range): BP systolic 98–130; BP diastolic 62–74; PULSE 57–89; RESP 18–20; TEMP 36.3–36.7; O2SAT 97–100
[2023-09-25] MEDS: PROPRANOLOL 10 MG TABLET 20 MG GT ×2 (05:23→21:19)
[2023-09-25] MEDS: TEARS BOTH EYES ×2 (08:51→21:20)
[2023-09-25] MEDS: [UNRECOGNIZED DRUG - OTHER] GT (08:51)
[2023-09-25] MEDS: DEXLANSOPRAZOLE 30 MG GT (08:51)
[2023-09-25] MEDS: FLAX GT (08:51)
[2023-09-25] MEDS: [UNRECOGNIZED DRUG - OTHER] BOTH EYES ×2 (08:51→21:20)
[2023-09-25] MEDS: FISH OIL GT (08:51)
[2023-09-25] MEDS: BORAGE GT (08:51)
[2023-09-25] MEDS: SENNOSIDES 8.6 MG TABLET GT ×2 (08:52→20:08)
[2023-09-25] MEDS: MULTIVIT-MIN/IRON FUM/FOLIC AC 1 EACH TABLET GT (08:52)
[2023-09-25] MEDS: LOSARTAN 25 MG TABLET GT (08:52)
[2023-09-25] MEDS: MAGNESIUM HYDROXIDE 30 ML ORAL SUSP ML GT (08:53)
--- NOTE | 2023-09-25 13:21 | CHAP ---
During my visit I Prayed and talk with patient.
[2023-09-26] VITALS (9 sets, daily range): BP systolic 101–113; BP diastolic 58–72; PULSE 60–90; RESP 18–20; TEMP 36.2–36.6; O2SAT 95–100
[2023-09-26] MEDS: PROPRANOLOL 10 MG TABLET 20 MG GT ×3 (05:13→21:36)
[2023-09-26] MEDS: [UNRECOGNIZED DRUG - OTHER] BOTH EYES ×2 (09:37→20:37)
[2023-09-26] MEDS: TEARS BOTH EYES ×2 (09:37→20:37)
[2023-09-26] MEDS: FLAX GT (09:38)
[2023-09-26] MEDS: DEXLANSOPRAZOLE 30 MG GT (09:38)
[2023-09-26] MEDS: BORAGE GT (09:38)
[2023-09-26] MEDS: FISH OIL GT (09:38)
[2023-09-26] MEDS: [UNRECOGNIZED DRUG - OTHER] GT (09:38)
[2023-09-26] MEDS: SENNOSIDES 8.6 MG TABLET GT ×2 (09:39→20:38)
[2023-09-26] MEDS: MULTIVIT-MIN/IRON FUM/FOLIC AC 1 EACH TABLET GT (09:39)
--- NOTE | 2023-09-26 13:43 | CHAP ---
11:00 AM Visited by spiritual care volunteer Provided prayer for Patient.
[2023-09-27] VITALS (10 sets, daily range): BP systolic 97–119; BP diastolic 56–72; PULSE 60–92; RESP 16–20; TEMP 36.2–36.5; O2SAT 95–97
[2023-09-27] MEDS: PROPRANOLOL 10 MG TABLET 20 MG GT ×2 (05:38→13:40)
[2023-09-27] MEDS: FLAX GT (09:30)
[2023-09-27] MEDS: FISH OIL GT (09:30)
[2023-09-27] MEDS: DEXLANSOPRAZOLE 30 MG GT (09:30)
[2023-09-27] MEDS: [UNRECOGNIZED DRUG - OTHER] BOTH EYES ×2 (09:30→21:46)
[2023-09-27] MEDS: BORAGE GT (09:30)
[2023-09-27] MEDS: [UNRECOGNIZED DRUG - OTHER] GT (09:30)
[2023-09-27] MEDS: LOSARTAN 25 MG TABLET GT (09:30)
[2023-09-27] MEDS: TEARS BOTH EYES ×2 (09:30→21:46)
[2023-09-27] MEDS: SENNOSIDES 8.6 MG TABLET GT ×2 (09:31→21:46)
[2023-09-27] MEDS: MULTIVIT-MIN/IRON FUM/FOLIC AC 1 EACH TABLET GT (09:31)
--- NOTE | 2023-09-27 10:45 | PC.SS ---
Room visit: Resident is laying in bed with head of the bed elevated with call light properly placed with no signs of distress. Resident will remain in current care as there are no changes in care or condition. This SSD will continue to make daily contact with resident and offer emotional support.
[2023-09-28] VITALS (10 sets, daily range): BP systolic 102–124; BP diastolic 64–78; PULSE 66–86; RESP 18–20; TEMP 36.1–36.5; O2SAT 93–98
[2023-09-28] MEDS: PROPRANOLOL 10 MG TABLET 20 MG GT ×3 (05:30→21:26)
[2023-09-28] MEDS: SENNOSIDES 8.6 MG TABLET GT ×2 (08:59→20:46)
[2023-09-28] MEDS: MULTIVIT-MIN/IRON FUM/FOLIC AC 1 EACH TABLET GT (08:59)
[2023-09-28] MEDS: DEXLANSOPRAZOLE 30 MG GT (08:59)
[2023-09-28] MEDS: [UNRECOGNIZED DRUG - OTHER] BOTH EYES ×2 (08:59→20:46)
[2023-09-28] MEDS: BORAGE GT (08:59)
[2023-09-28] MEDS: TEARS BOTH EYES ×2 (08:59→20:46)
[2023-09-28] MEDS: FISH OIL GT (08:59)
[2023-09-28] MEDS: LOSARTAN 25 MG TABLET GT (08:59)
[2023-09-28] MEDS: FLAX GT (08:59)
[2023-09-28] MEDS: [UNRECOGNIZED DRUG - OTHER] GT (08:59)
--- NOTE | 2023-09-28 20:49 | PD.SAPROG ---
Progress Note - SubAcute SUBJECTIVE Fever:: none GI:: none Shortness of Breath:: none GI:: no complaints Pain:: none OBJECTIVE Most recent vital signs: Last Vital Signs Temp 97.7 F 09/28/23 17:51 Pulse 76 09/28/23 18:34 Resp 18 09/28/23 18:34 BP 111/65 09/28/23 17:51 Pulse Ox 93 L 09/28/23 18:34 O2 Del Method Blow-by 09/28/23 06:00 O2 Flow Rate 10 09/28/23 18:34 FiO2 35 09/28/23 18:34 Neurological:: awake Speech:: none Answers questions:: sometimes (Sometimes opens eyes to command.) Respiratory:: lungs clear Cardiovascular: RRR Abdomen: soft and nontender Extremities:: deformities Decubitus:: none Tracheostomy:: to blow by Feeding per:: G tube Complaints:: none ASSESSMENT & PLAN Assessment: Stable status. No improvement in cognitive function. Diagnosis and treatment reviewed. Prognosis poor. Plan: Current treatment continued as ongoing
[2023-09-29] VITALS (9 sets, daily range): BP systolic 101–118; BP diastolic 61–77; PULSE 64–86; RESP 17–22; TEMP 36.1–36.6; O2SAT 96–98
[2023-09-29] MEDS: PROPRANOLOL 10 MG TABLET 20 MG GT ×3 (05:21→21:02)
[2023-09-29] MEDS: FLAX GT (08:18)
[2023-09-29] MEDS: [UNRECOGNIZED DRUG - OTHER] GT (08:18)
[2023-09-29] MEDS: LOSARTAN 25 MG TABLET GT (08:18)
[2023-09-29] MEDS: TEARS BOTH EYES ×2 (08:18→20:45)
[2023-09-29] MEDS: FISH OIL GT (08:18)
[2023-09-29] MEDS: BORAGE GT (08:18)
[2023-09-29] MEDS: DEXLANSOPRAZOLE 30 MG GT (08:18)
[2023-09-29] MEDS: [UNRECOGNIZED DRUG - OTHER] BOTH EYES ×2 (08:18→20:45)
[2023-09-29] MEDS: MULTIVIT-MIN/IRON FUM/FOLIC AC 1 EACH TABLET GT (08:19)
[2023-09-29] MEDS: SENNOSIDES 8.6 MG TABLET GT ×2 (08:20→20:45)
--- NOTE | 2023-09-29 12:51 | CHAP ---
Patient was visited by the Spiritual Care Volunteer who prayed outside room. (Volunteer was in the hospital from 10:32-12:51)
[2023-09-29] MEDS: MAGNESIUM HYDROXIDE 30 ML ORAL SUSP ML GT (17:04)
[2023-09-30] VITALS (11 sets, daily range): BP systolic 93–114; BP diastolic 60–74; PULSE 47–84; RESP 18–21; TEMP 36.6–36.8; O2SAT 94–97
[2023-09-30] MEDS: [UNRECOGNIZED DRUG - OTHER] BOTH EYES ×2 (08:09→21:11)
[2023-09-30] MEDS: TEARS BOTH EYES ×2 (08:09→21:11)
[2023-09-30] MEDS: DEXLANSOPRAZOLE 30 MG GT (08:10)
[2023-09-30] MEDS: [UNRECOGNIZED DRUG - OTHER] GT (08:10)
[2023-09-30] MEDS: FISH OIL GT (08:10)
[2023-09-30] MEDS: BORAGE GT (08:10)
[2023-09-30] MEDS: FLAX GT (08:10)
[2023-09-30] MEDS: MULTIVIT-MIN/IRON FUM/FOLIC AC 1 EACH TABLET GT (08:12)
[2023-09-30] MEDS: SENNOSIDES 8.6 MG TABLET GT ×2 (08:12→20:09)
[2023-09-30] MEDS: PROPRANOLOL 10 MG TABLET 20 MG GT ×2 (13:52→21:11)
[2023-09-30] MEDS: SODIUM PHOSPHATE,MONO-DIBASIC 133 ML ENEMA PR (21:19)
[2023-10-01] VITALS (9 sets, daily range): BP systolic 95–131; BP diastolic 59–84; PULSE 66–89; RESP 18–22; TEMP 36.2–36.8; O2SAT 94–97
[2023-10-01] MEDS: PROPRANOLOL 10 MG TABLET 20 MG GT ×2 (05:38→21:34)
[2023-10-01] MEDS: FISH OIL GT (08:44)
[2023-10-01] MEDS: [UNRECOGNIZED DRUG - OTHER] GT (08:44)
[2023-10-01] MEDS: LOSARTAN 25 MG TABLET GT (08:44)
[2023-10-01] MEDS: [UNRECOGNIZED DRUG - OTHER] BOTH EYES ×2 (08:44→21:32)
[2023-10-01] MEDS: DEXLANSOPRAZOLE 30 MG GT (08:44)
[2023-10-01] MEDS: BORAGE GT (08:44)
[2023-10-01] MEDS: TEARS BOTH EYES ×2 (08:44→21:32)
[2023-10-01] MEDS: FLAX GT (08:44)
[2023-10-01] MEDS: MULTIVIT-MIN/IRON FUM/FOLIC AC 1 EACH TABLET GT (08:45)
[2023-10-01] MEDS: SENNOSIDES 8.6 MG TABLET GT ×2 (08:45→21:33)
[2023-10-02] VITALS (11 sets, daily range): BP systolic 97–117; BP diastolic 63–75; PULSE 63–78; RESP 17–22; TEMP 36.4–36.6; O2SAT 94–100
[2023-10-02] MEDS: PROPRANOLOL 10 MG TABLET 20 MG GT ×2 (04:59→14:13)
[2023-10-02] MEDS: TEARS BOTH EYES ×2 (08:51→20:40)
[2023-10-02] MEDS: BORAGE GT (08:51)
[2023-10-02] MEDS: FISH OIL GT (08:51)
[2023-10-02] MEDS: [UNRECOGNIZED DRUG - OTHER] BOTH EYES ×2 (08:51→20:40)
[2023-10-02] MEDS: FLAX GT (08:51)
[2023-10-02] MEDS: DEXLANSOPRAZOLE 30 MG GT (08:51)
[2023-10-02] MEDS: [UNRECOGNIZED DRUG - OTHER] GT (08:51)
[2023-10-02] MEDS: MULTIVIT-MIN/IRON FUM/FOLIC AC 1 EACH TABLET GT (08:54)
[2023-10-02] MEDS: SENNOSIDES 8.6 MG TABLET GT ×2 (08:54→20:40)
--- NOTE | 2023-10-02 11:02 | PC.NURSE ---
While doing treatment to resident's trach site it was noted that there was an open area with purulent drainage that had not been there yesterday during treatment to area. RN made aware and RN made wound nurse aware. Wound nurse to come assess resident this afternoon. Treatment done as ordered at this time. No s/s of pain or discomfort noted. Call light in reach. Will continue with plan of care.
--- NOTE | 2023-10-02 14:20 | PC.NURSE ---
MD. made aware that resident has a wound near trach site, and it has discharges on it, MD. look at it, order to culture the wound, and consult Dr. Hall for trach revision, order noted and carried out.
--- NOTE | 2023-10-02 14:36 | PC.NURSE ---
Called Dr. Hall office made aware about the referral for trach revision and they will let Dr. Hall know.
--- NOTE | 2023-10-02 21:57 | PD.SAPROG ---
Progress Note - SubAcute SUBJECTIVE Fever:: none GI:: none Shortness of Breath:: none GI:: no complaints Pain:: none OBJECTIVE Most recent vital signs: Last Vital Signs Temp 97.5 F 10/02/23 17:37 Pulse 72 10/02/23 21:55 Resp 17 10/02/23 17:37 BP 97/63 10/02/23 21:55 Pulse Ox 100 10/02/23 17:37 O2 Del Method Blow-by 10/02/23 06:00 O2 Flow Rate 10 10/02/23 06:50 FiO2 35 10/02/23 06:50 Neurological:: awake Speech:: none Answers questions:: sometimes (Sometimes opens eyes to command.) Respiratory:: lungs clear Cardiovascular: RRR Abdomen: soft and nontender Extremities:: deformities Decubitus:: none Tracheostomy:: to blow by Feeding per:: G tube Complaints:: none ASSESSMENT & PLAN Assessment: Stable status. No improvement in cognitive function. Diagnosis and treatment reviewed. Prognosis poor. Plan: Current treatment continued as ongoing
[2023-10-03] VITALS (10 sets, daily range): BP systolic 101–122; BP diastolic 62–79; PULSE 61–80; RESP 17–19; TEMP 36.4–36.8; O2SAT 96–99
[2023-10-03] MEDS: PROPRANOLOL 10 MG TABLET 20 MG GT ×3 (05:19→21:19)
[2023-10-03] MEDS: MAGNESIUM HYDROXIDE 30 ML ORAL SUSP ML GT (08:53)
[2023-10-03] MEDS: BORAGE GT (08:54)
[2023-10-03] MEDS: [UNRECOGNIZED DRUG - OTHER] BOTH EYES ×2 (08:54→20:44)
[2023-10-03] MEDS: DEXLANSOPRAZOLE 30 MG GT (08:54)
[2023-10-03] MEDS: FLAX GT (08:54)
[2023-10-03] MEDS: FISH OIL GT (08:54)
[2023-10-03] MEDS: [UNRECOGNIZED DRUG - OTHER] GT (08:54)
[2023-10-03] MEDS: TEARS BOTH EYES ×2 (08:54→20:44)
[2023-10-03] MEDS: LOSARTAN 25 MG TABLET GT (08:54)
[2023-10-03] MEDS: MULTIVIT-MIN/IRON FUM/FOLIC AC 1 EACH TABLET GT (08:55)
[2023-10-03] MEDS: SENNOSIDES 8.6 MG TABLET GT ×2 (08:55→20:44)
--- NOTE | 2023-10-03 14:34 | CHAP ---
10:00 AM Visited by spiritual care volunteer Provided prayer for Patient.
[2023-10-04] VITALS (9 sets, daily range): BP systolic 101–140; BP diastolic 61–84; PULSE 57–82; RESP 18–20; TEMP 36.2–36.3; O2SAT 94–99
[2023-10-04] MEDS: PROPRANOLOL 10 MG TABLET 20 MG GT ×2 (05:17→14:19)
[2023-10-04] MEDS: [UNRECOGNIZED DRUG - OTHER] GT (09:18)
[2023-10-04] MEDS: BORAGE GT (09:18)
[2023-10-04] MEDS: FISH OIL GT (09:18)
[2023-10-04] MEDS: DEXLANSOPRAZOLE 30 MG GT (09:18)
[2023-10-04] MEDS: [UNRECOGNIZED DRUG - OTHER] BOTH EYES ×2 (09:18→20:24)
[2023-10-04] MEDS: FLAX GT (09:18)
[2023-10-04] MEDS: TEARS BOTH EYES ×2 (09:18→20:24)
[2023-10-04] MEDS: MULTIVIT-MIN/IRON FUM/FOLIC AC 1 EACH TABLET GT (09:19)
[2023-10-04] MEDS: SENNOSIDES 8.6 MG TABLET GT ×2 (09:20→20:24)
[2023-10-04] MEDS: SODIUM PHOSPHATE,MONO-DIBASIC 133 ML ENEMA PR (11:25)
--- NOTE | 2023-10-04 12:31 | PC.SS ---
Room visit: Resident is laying in bed wit TV on and call light properly placed with no signs of distress. Resident will remain in current care as there are no changes in care or condition. SSD will continue to make daily contact with resident and offer support as needed.
[2023-10-05] VITALS (10 sets, daily range): BP systolic 92–120; BP diastolic 58–76; PULSE 54–81; RESP 18–19; TEMP 36.2–36.8; O2SAT 93–99
[2023-10-05] MEDS: PROPRANOLOL 10 MG TABLET 20 MG GT ×2 (05:43→13:39)
[2023-10-05] MEDS: [UNRECOGNIZED DRUG - OTHER] BOTH EYES ×2 (08:56→20:37)
[2023-10-05] MEDS: [UNRECOGNIZED DRUG - OTHER] GT (08:56)
[2023-10-05] MEDS: BORAGE GT (08:56)
[2023-10-05] MEDS: FLAX GT (08:56)
[2023-10-05] MEDS: FISH OIL GT (08:56)
[2023-10-05] MEDS: DEXLANSOPRAZOLE 30 MG GT (08:56)
[2023-10-05] MEDS: TEARS BOTH EYES ×2 (08:56→20:37)
[2023-10-05] MEDS: SENNOSIDES 8.6 MG TABLET GT ×2 (08:58→20:38)
[2023-10-05] MEDS: MULTIVIT-MIN/IRON FUM/FOLIC AC 1 EACH TABLET GT (08:58)
[2023-10-06] VITALS (10 sets, daily range): BP systolic 100–129; BP diastolic 66–78; PULSE 56–84; RESP 16–20; TEMP 36.2–36.7; O2SAT 93–99
[2023-10-06] MEDS: PROPRANOLOL 10 MG TABLET 20 MG GT ×2 (05:26→13:40)
[2023-10-06] MEDS: BORAGE GT (09:07)
[2023-10-06] MEDS: [UNRECOGNIZED DRUG - OTHER] GT (09:07)
[2023-10-06] MEDS: FLAX GT (09:07)
[2023-10-06] MEDS: LOSARTAN 25 MG TABLET GT (09:07)
[2023-10-06] MEDS: MULTIVIT-MIN/IRON FUM/FOLIC AC 1 EACH TABLET GT (09:07)
[2023-10-06] MEDS: DEXLANSOPRAZOLE 30 MG GT (09:07)
[2023-10-06] MEDS: TEARS BOTH EYES ×2 (09:07→20:25)
[2023-10-06] MEDS: SENNOSIDES 8.6 MG TABLET GT ×2 (09:07→20:25)
[2023-10-06] MEDS: [UNRECOGNIZED DRUG - OTHER] BOTH EYES ×2 (09:07→20:25)
[2023-10-06] MEDS: FISH OIL GT (09:07)
--- NOTE | 2023-10-06 10:58 | PC.NURSE ---
made aware of wound culture report for abscess to near trach stoma, per the organisms in the report show when there is a contamination, no new orders at this time, resident is afebrile, no s/s of distress noted, small purulent drainage noted to site, resident continue with tx., resident in room resting, call light within reach, pending consult.
[2023-10-06] MEDS: MAGNESIUM HYDROXIDE 30 ML ORAL SUSP ML GT (21:41)
--- NOTE | 2023-10-06 22:24 | PD.SAPROG ---
Progress Note - SubAcute SUBJECTIVE Fever:: none GI:: none Shortness of Breath:: none GI:: no complaints Pain:: none OBJECTIVE Most recent vital signs: Last Vital Signs Temp 98.0 F 10/06/23 17:20 Pulse 56 L 10/06/23 21:19 Resp 16 10/06/23 18:45 BP 114/70 10/06/23 17:20 Pulse Ox 93 L 10/06/23 18:45 O2 Del Method Blow-by 10/06/23 06:00 O2 Flow Rate 10 10/06/23 18:45 FiO2 35 10/06/23 18:45 Neurological:: awake Speech:: none Answers questions:: sometimes (Sometimes opens eyes to command.) Respiratory:: lungs clear Cardiovascular: RRR Abdomen: soft and nontender Extremities:: deformities Decubitus:: none Tracheostomy:: to blow by Feeding per:: G tube Complaints:: none ASSESSMENT & PLAN Assessment: Stable status. No improvement in cognitive function. Diagnosis and treatment reviewed. Prognosis poor. Plan: Current treatment continued as ongoing
[2023-10-07] VITALS (11 sets, daily range): BP systolic 97–157; BP diastolic 64–77; PULSE 56–82; RESP 14–22; TEMP 36–36.3; O2SAT 95–98
[2023-10-07] MEDS: DEXLANSOPRAZOLE 30 MG GT (09:17)
[2023-10-07] MEDS: [UNRECOGNIZED DRUG - OTHER] BOTH EYES ×2 (09:17→20:39)
[2023-10-07] MEDS: TEARS BOTH EYES ×2 (09:17→20:39)
[2023-10-07] MEDS: LOSARTAN 25 MG TABLET GT (09:18)
[2023-10-07] MEDS: BORAGE GT (09:18)
[2023-10-07] MEDS: MULTIVIT-MIN/IRON FUM/FOLIC AC 1 EACH TABLET GT (09:18)
[2023-10-07] MEDS: FISH OIL GT (09:18)
[2023-10-07] MEDS: FLAX GT (09:18)
[2023-10-07] MEDS: [UNRECOGNIZED DRUG - OTHER] GT (09:18)
[2023-10-07] MEDS: SENNOSIDES 8.6 MG TABLET GT ×2 (09:19→20:39)
[2023-10-07] MEDS: PROPRANOLOL 10 MG TABLET 20 MG GT (21:22)
[2023-10-08] VITALS (11 sets, daily range): BP systolic 95–114; BP diastolic 64–77; PULSE 64–96; RESP 18–20; TEMP 36.1–36.6; O2SAT 95–98
[2023-10-08] MEDS: FISH OIL GT (08:32)
[2023-10-08] MEDS: TEARS BOTH EYES ×2 (08:32→20:30)
[2023-10-08] MEDS: [UNRECOGNIZED DRUG - OTHER] GT (08:32)
[2023-10-08] MEDS: [UNRECOGNIZED DRUG - OTHER] BOTH EYES ×2 (08:32→20:30)
[2023-10-08] MEDS: BORAGE GT (08:32)
[2023-10-08] MEDS: DEXLANSOPRAZOLE 30 MG GT (08:32)
[2023-10-08] MEDS: FLAX GT (08:32)
[2023-10-08] MEDS: LOSARTAN 25 MG TABLET GT (08:33)
[2023-10-08] MEDS: MULTIVIT-MIN/IRON FUM/FOLIC AC 1 EACH TABLET GT (08:33)
[2023-10-08] MEDS: SENNOSIDES 8.6 MG TABLET GT ×2 (08:33→20:30)
[2023-10-08] MEDS: PROPRANOLOL 10 MG TABLET 20 MG GT ×2 (13:49→21:19)
--- NOTE | 2023-10-08 18:29 | PC.NURSE ---
Notified MD regarding culture of trach site. No further orders received at this time. resident area appears clear no ongoing infection going also verified by Dr. Ham.
[2023-10-09] VITALS (11 sets, daily range): BP systolic 94–122; BP diastolic 60–76; PULSE 57–88; RESP 16–20; TEMP 36.3–36.6; O2SAT 97–99
[2023-10-09] MEDS: PROPRANOLOL 10 MG TABLET 20 MG GT ×3 (05:25→21:03)
[2023-10-09] MEDS: DEXLANSOPRAZOLE 30 MG GT (08:44)
[2023-10-09] MEDS: BORAGE GT (08:44)
[2023-10-09] MEDS: [UNRECOGNIZED DRUG - OTHER] BOTH EYES ×2 (08:44→20:53)
[2023-10-09] MEDS: TEARS BOTH EYES ×2 (08:44→20:53)
[2023-10-09] MEDS: [UNRECOGNIZED DRUG - OTHER] GT (08:44)
[2023-10-09] MEDS: FISH OIL GT (08:44)
[2023-10-09] MEDS: FLAX GT (08:44)
[2023-10-09] MEDS: MULTIVIT-MIN/IRON FUM/FOLIC AC 1 EACH TABLET GT (08:45)
[2023-10-09] MEDS: SENNOSIDES 8.6 MG TABLET GT ×2 (08:45→20:53)
[2023-10-10] VITALS (10 sets, daily range): BP systolic 96–128; BP diastolic 60–78; PULSE 55–78; RESP 16–18; TEMP 36.1–36.6; O2SAT 97–100
[2023-10-10] MEDS: DEXLANSOPRAZOLE 30 MG GT (08:45)
[2023-10-10] MEDS: TEARS BOTH EYES ×2 (08:45→20:32)
[2023-10-10] MEDS: [UNRECOGNIZED DRUG - OTHER] BOTH EYES ×2 (08:45→20:32)
[2023-10-10] MEDS: BORAGE GT (08:47)
[2023-10-10] MEDS: [UNRECOGNIZED DRUG - OTHER] GT (08:47)
[2023-10-10] MEDS: FLAX GT (08:47)
[2023-10-10] MEDS: FISH OIL GT (08:47)
[2023-10-10] MEDS: SENNOSIDES 8.6 MG TABLET GT ×2 (08:49→20:32)
[2023-10-10] MEDS: MULTIVIT-MIN/IRON FUM/FOLIC AC 1 EACH TABLET GT (08:49)
[2023-10-10] MEDS: LOSARTAN 25 MG TABLET GT (08:49)
--- NOTE | 2023-10-10 15:15 | PD.SAPROG ---
Progress Note - SubAcute DIAGNOSIS (1) Traumatic brain injury: Status: Chronic (2) Anoxic brain damage, not elsewhere classified: Status: Chronic (3) Tracheostomy status: Status: Chronic (4) Gastrostomy status: Status: Chronic (5) Chronic respiratory failure: Status: Chronic SUBJECTIVE Fever:: none GI:: none Shortness of Breath:: none GI:: no complaints Pain:: none OBJECTIVE Most recent vital signs: Last Vital Signs Temp 97.0 F 10/14/23 05:49 Pulse 79 10/14/23 08:42 Resp 21 H 10/14/23 05:49 BP 111/64 10/14/23 08:42 Pulse Ox 97 10/13/23 18:35 O2 Del Method Blow-by 10/13/23 06:00 O2 Flow Rate 10 10/13/23 18:35 FiO2 35 10/13/23 18:35 Neurological:: awake Speech:: none Answers questions:: sometimes (Sometimes opens eyes to command.) Respiratory:: lungs clear Cardiovascular: RRR Abdomen: soft and nontender Extremities:: deformities Decubitus:: none Tracheostomy:: to blow by Feeding per:: G tube Complaints:: none ASSESSMENT & PLAN Assessment: Stable status. No improvement in cognitive function. Diagnosis and treatment reviewed. Prognosis poor. Plan: Current treatment continued as ongoing
[2023-10-11] VITALS (10 sets, daily range): BP systolic 99–122; BP diastolic 62–75; PULSE 58–82; RESP 17–20; TEMP 36.1–36.4; O2SAT 96–99
[2023-10-11] MEDS: PROPRANOLOL 10 MG TABLET 20 MG GT ×3 (05:37→22:00)
[2023-10-11] MEDS: TEARS BOTH EYES ×2 (08:59→20:21)
[2023-10-11] MEDS: [UNRECOGNIZED DRUG - OTHER] BOTH EYES ×2 (08:59→20:21)
[2023-10-11] MEDS: FISH OIL GT (09:00)
[2023-10-11] MEDS: MULTIVIT-MIN/IRON FUM/FOLIC AC 1 EACH TABLET GT (09:00)
[2023-10-11] MEDS: FLAX GT (09:00)
[2023-10-11] MEDS: [UNRECOGNIZED DRUG - OTHER] GT (09:00)
[2023-10-11] MEDS: LOSARTAN 25 MG TABLET GT (09:00)
[2023-10-11] MEDS: DEXLANSOPRAZOLE 30 MG GT (09:00)
[2023-10-11] MEDS: SENNOSIDES 8.6 MG TABLET GT ×2 (09:00→20:21)
[2023-10-11] MEDS: BORAGE GT (09:00)
--- NOTE | 2023-10-11 14:45 | PC.SS ---
Room visit: Resident is laying in bed with head of the bed elevated with call light properly placed. Resident has no changes in care or condition he will remain in current care and will have all needs met for subacute care. This SSD will make daily contact with resident and will monitor for any changes in care or condition.
[2023-10-12] VITALS (9 sets, daily range): BP systolic 102–127; BP diastolic 61–79; PULSE 60–83; RESP 18–20; TEMP 35.9–36.4; O2SAT 95–100
[2023-10-12] MEDS: PROPRANOLOL 10 MG TABLET 20 MG GT ×3 (05:41→21:01)
[2023-10-12] MEDS: FISH OIL GT (09:09)
[2023-10-12] MEDS: [UNRECOGNIZED DRUG - OTHER] BOTH EYES ×2 (09:09→21:01)
[2023-10-12] MEDS: FLAX GT (09:09)
[2023-10-12] MEDS: [UNRECOGNIZED DRUG - OTHER] GT (09:09)
[2023-10-12] MEDS: DEXLANSOPRAZOLE 30 MG GT (09:09)
[2023-10-12] MEDS: MULTIVIT-MIN/IRON FUM/FOLIC AC 1 EACH TABLET GT (09:09)
[2023-10-12] MEDS: TEARS BOTH EYES ×2 (09:09→21:01)
[2023-10-12] MEDS: BORAGE GT (09:09)
[2023-10-12] MEDS: SENNOSIDES 8.6 MG TABLET GT ×2 (09:10→21:01)
[2023-10-13] VITALS (11 sets, daily range): BP systolic 110–133; BP diastolic 64–78; PULSE 51–92; RESP 18–20; TEMP 35.8–36.2; O2SAT 96–99
[2023-10-13] MEDS: FLAX GT (09:09)
[2023-10-13] MEDS: DEXLANSOPRAZOLE 30 MG GT (09:09)
[2023-10-13] MEDS: BORAGE GT (09:09)
[2023-10-13] MEDS: TEARS BOTH EYES ×2 (09:09→20:44)
[2023-10-13] MEDS: [UNRECOGNIZED DRUG - OTHER] BOTH EYES ×2 (09:09→20:44)
[2023-10-13] MEDS: FISH OIL GT (09:09)
[2023-10-13] MEDS: LOSARTAN 25 MG TABLET GT (09:09)
[2023-10-13] MEDS: [UNRECOGNIZED DRUG - OTHER] GT (09:09)
[2023-10-13] MEDS: MULTIVIT-MIN/IRON FUM/FOLIC AC 1 EACH TABLET GT (09:10)
[2023-10-13] MEDS: SENNOSIDES 8.6 MG TABLET GT ×2 (09:10→20:44)
[2023-10-13] MEDS: PROPRANOLOL 10 MG TABLET 20 MG GT ×2 (13:37→21:05)
[2023-10-13] MEDS: MAGNESIUM HYDROXIDE 30 ML ORAL SUSP ML GT (20:49)
[2023-10-14] VITALS (8 sets, daily range): BP systolic 106–121; BP diastolic 61–77; PULSE 64–79; RESP 18–21; TEMP 36.1–36.3; O2SAT 95–99
[2023-10-14] MEDS: FISH OIL GT (08:42)
[2023-10-14] MEDS: BORAGE GT (08:42)
[2023-10-14] MEDS: MULTIVIT-MIN/IRON FUM/FOLIC AC 1 EACH TABLET GT (08:42)
[2023-10-14] MEDS: LOSARTAN 25 MG TABLET GT (08:42)
[2023-10-14] MEDS: [UNRECOGNIZED DRUG - OTHER] GT (08:42)
[2023-10-14] MEDS: TEARS BOTH EYES ×2 (08:42→20:31)
[2023-10-14] MEDS: [UNRECOGNIZED DRUG - OTHER] BOTH EYES ×2 (08:42→20:31)
[2023-10-14] MEDS: SENNOSIDES 8.6 MG TABLET GT ×2 (08:42→20:31)
[2023-10-14] MEDS: DEXLANSOPRAZOLE 30 MG GT (08:42)
[2023-10-14] MEDS: FLAX GT (08:42)
[2023-10-14] MEDS: PROPRANOLOL 10 MG TABLET 20 MG GT ×2 (13:55→21:38)
[2023-10-15] VITALS (10 sets, daily range): BP systolic 92–118; BP diastolic 59–74; PULSE 53–83; RESP 18–20; TEMP 36.3; O2SAT 92–99
[2023-10-15] MEDS: MULTIVIT-MIN/IRON FUM/FOLIC AC 1 EACH TABLET GT (09:16)
[2023-10-15] MEDS: [UNRECOGNIZED DRUG - OTHER] BOTH EYES ×2 (09:16→20:49)
[2023-10-15] MEDS: TEARS BOTH EYES ×2 (09:16→20:49)
[2023-10-15] MEDS: FISH OIL GT (09:17)
[2023-10-15] MEDS: BORAGE GT (09:17)
[2023-10-15] MEDS: FLAX GT (09:17)
[2023-10-15] MEDS: [UNRECOGNIZED DRUG - OTHER] GT (09:17)
[2023-10-15] MEDS: DEXLANSOPRAZOLE 30 MG GT (09:17)
[2023-10-15] MEDS: SENNOSIDES 8.6 MG TABLET GT ×2 (09:18→20:50)
[2023-10-15] MEDS: PROPRANOLOL 10 MG TABLET 20 MG GT ×2 (14:39→21:31)
[2023-10-16] VITALS (10 sets, daily range): BP systolic 98–119; BP diastolic 60–78; PULSE 60–84; RESP 17–20; TEMP 36.4–37; O2SAT 95–99
[2023-10-16] MEDS: BORAGE GT (08:57)
[2023-10-16] MEDS: FLAX GT (08:57)
[2023-10-16] MEDS: DEXLANSOPRAZOLE 30 MG GT (08:57)
[2023-10-16] MEDS: MULTIVIT-MIN/IRON FUM/FOLIC AC 1 EACH TABLET GT (08:57)
[2023-10-16] MEDS: FISH OIL GT (08:57)
[2023-10-16] MEDS: [UNRECOGNIZED DRUG - OTHER] BOTH EYES ×2 (08:57→20:52)
[2023-10-16] MEDS: TEARS BOTH EYES ×2 (08:57→20:52)
[2023-10-16] MEDS: [UNRECOGNIZED DRUG - OTHER] GT (08:57)
[2023-10-16] MEDS: LOSARTAN 25 MG TABLET GT (08:57)
[2023-10-16] MEDS: SENNOSIDES 8.6 MG TABLET GT ×2 (08:57→20:52)
[2023-10-16] MEDS: PROPRANOLOL 10 MG TABLET 20 MG GT ×2 (13:56→21:17)
[2023-10-17] VITALS (10 sets, daily range): BP systolic 103–129; BP diastolic 65–73; PULSE 54–80; RESP 17–21; TEMP 36.2–36.9; O2SAT 95–100
[2023-10-17] MEDS: PROPRANOLOL 10 MG TABLET 20 MG GT ×3 (05:23→21:08)
[2023-10-17] MEDS: DEXLANSOPRAZOLE 30 MG GT (08:25)
[2023-10-17] MEDS: BORAGE GT (08:25)
[2023-10-17] MEDS: [UNRECOGNIZED DRUG - OTHER] GT (08:25)
[2023-10-17] MEDS: FLAX GT (08:25)
[2023-10-17] MEDS: [UNRECOGNIZED DRUG - OTHER] BOTH EYES ×2 (08:25→20:52)
[2023-10-17] MEDS: FISH OIL GT (08:25)
[2023-10-17] MEDS: TEARS BOTH EYES ×2 (08:25→20:52)
[2023-10-17] MEDS: MULTIVIT-MIN/IRON FUM/FOLIC AC 1 EACH TABLET GT (08:27)
[2023-10-17] MEDS: SENNOSIDES 8.6 MG TABLET GT ×2 (08:27→20:52)
--- NOTE | 2023-10-17 13:25 | CHAP ---
11:00 AM Visited by spiritual care volunteer Provided prayer for Patient.
--- NOTE | 2023-10-17 14:40 | PD.SAPROG ---
Progress Note - SubAcute DIAGNOSIS (1) Traumatic brain injury: Status: Chronic (2) Anoxic brain damage, not elsewhere classified: Status: Chronic (3) Tracheostomy status: Status: Chronic (4) Gastrostomy status: Status: Chronic (5) Chronic respiratory failure: Status: Chronic SUBJECTIVE Fever:: none GI:: none Shortness of Breath:: none GI:: no complaints Pain:: none OBJECTIVE Most recent vital signs: Last Vital Signs Temp 97.6 F 10/18/23 00:00 Pulse 69 10/18/23 00:00 Resp 19 10/18/23 00:00 BP 103/68 10/18/23 00:00 Pulse Ox 96 10/17/23 18:15 O2 Del Method Blow-by 10/17/23 06:00 O2 Flow Rate 10 10/17/23 18:15 FiO2 35 10/17/23 18:15 Neurological:: awake Speech:: none Answers questions:: sometimes (Sometimes opens eyes to command.) Respiratory:: lungs clear Cardiovascular: RRR Abdomen: soft and nontender Extremities:: deformities Decubitus:: none Tracheostomy:: to blow by Feeding per:: G tube Complaints:: none ASSESSMENT & PLAN Assessment: Stable status. No improvement in cognitive function. Diagnosis and treatment reviewed. Prognosis poor. Plan: Current treatment continued as ongoing
[2023-10-18] VITALS (11 sets, daily range): BP systolic 94–131; BP diastolic 55–74; PULSE 60–89; RESP 17–19; TEMP 35.9–36.6; O2SAT 97–100
[2023-10-18] MEDS: PROPRANOLOL 10 MG TABLET 20 MG GT ×2 (05:38→13:25)
[2023-10-18] MEDS: [UNRECOGNIZED DRUG - OTHER] GT (08:50)
[2023-10-18] MEDS: BORAGE GT (08:50)
[2023-10-18] MEDS: FLAX GT (08:50)
[2023-10-18] MEDS: SENNOSIDES 8.6 MG TABLET GT ×2 (08:50→20:51)
[2023-10-18] MEDS: MULTIVIT-MIN/IRON FUM/FOLIC AC 1 EACH TABLET GT (08:50)
[2023-10-18] MEDS: TEARS BOTH EYES ×2 (08:50→20:51)
[2023-10-18] MEDS: DEXLANSOPRAZOLE 30 MG GT (08:50)
[2023-10-18] MEDS: [UNRECOGNIZED DRUG - OTHER] BOTH EYES ×2 (08:50→20:51)
[2023-10-18] MEDS: FISH OIL GT (08:50)
[2023-10-18] MEDS: LOSARTAN 25 MG TABLET GT (08:50)
[2023-10-19] VITALS (11 sets, daily range): BP systolic 95–130; BP diastolic 66–85; PULSE 66–90; RESP 17–20; TEMP 36.1–36.6; O2SAT 96–99
[2023-10-19] MEDS: PROPRANOLOL 10 MG TABLET 20 MG GT ×3 (05:28→21:02)
[2023-10-19] MEDS: DEXLANSOPRAZOLE 30 MG GT (09:01)
[2023-10-19] MEDS: TEARS BOTH EYES ×2 (09:01→21:02)
[2023-10-19] MEDS: [UNRECOGNIZED DRUG - OTHER] BOTH EYES ×2 (09:01→21:02)
[2023-10-19] MEDS: FLAX GT (09:02)
[2023-10-19] MEDS: FISH OIL GT (09:02)
[2023-10-19] MEDS: [UNRECOGNIZED DRUG - OTHER] GT (09:02)
[2023-10-19] MEDS: BORAGE GT (09:02)
[2023-10-19] MEDS: MULTIVIT-MIN/IRON FUM/FOLIC AC 1 EACH TABLET GT (09:03)
[2023-10-19] MEDS: SENNOSIDES 8.6 MG TABLET GT ×2 (09:03→21:02)
[2023-10-20] VITALS (12 sets, daily range): BP systolic 99–135; BP diastolic 59–84; PULSE 63–80; RESP 18–20; TEMP 36.1–36.6; O2SAT 96–98
[2023-10-20] MEDS: PROPRANOLOL 10 MG TABLET 20 MG GT ×3 (05:22→21:17)
[2023-10-20] MEDS: TEARS BOTH EYES ×2 (08:36→21:16)
[2023-10-20] MEDS: [UNRECOGNIZED DRUG - OTHER] BOTH EYES ×2 (08:36→21:16)
[2023-10-20] MEDS: FISH OIL GT (08:36)
[2023-10-20] MEDS: [UNRECOGNIZED DRUG - OTHER] GT (08:36)
[2023-10-20] MEDS: BORAGE GT (08:36)
[2023-10-20] MEDS: MULTIVIT-MIN/IRON FUM/FOLIC AC 1 EACH TABLET GT (08:36)
[2023-10-20] MEDS: FLAX GT (08:36)
[2023-10-20] MEDS: LOSARTAN 25 MG TABLET GT (08:36)
[2023-10-20] MEDS: DEXLANSOPRAZOLE 30 MG GT (08:36)
[2023-10-20] MEDS: SENNOSIDES 8.6 MG TABLET GT ×2 (08:37→21:17)
[2023-10-21] VITALS (10 sets, daily range): BP systolic 96–125; BP diastolic 62–73; PULSE 54–80; RESP 18–20; TEMP 36.1–36.5; O2SAT 95–97
[2023-10-21] MEDS: PROPRANOLOL 10 MG TABLET 20 MG GT ×2 (05:07→13:43)
[2023-10-21] MEDS: TEARS BOTH EYES ×2 (08:23→21:10)
[2023-10-21] MEDS: [UNRECOGNIZED DRUG - OTHER] BOTH EYES ×2 (08:23→21:10)
[2023-10-21] MEDS: BORAGE GT (08:25)
[2023-10-21] MEDS: FLAX GT (08:25)
[2023-10-21] MEDS: DEXLANSOPRAZOLE 30 MG GT (08:25)
[2023-10-21] MEDS: [UNRECOGNIZED DRUG - OTHER] GT (08:25)
[2023-10-21] MEDS: FISH OIL GT (08:25)
[2023-10-21] MEDS: SENNOSIDES 8.6 MG TABLET GT ×2 (08:26→21:10)
[2023-10-21] MEDS: MULTIVIT-MIN/IRON FUM/FOLIC AC 1 EACH TABLET GT (08:26)
--- NOTE | 2023-10-21 11:47 | PD.SAPROG ---
Progress Note - SubAcute DIAGNOSIS (1) Traumatic brain injury: Status: Chronic (2) Anoxic brain damage, not elsewhere classified: Status: Chronic (3) Tracheostomy status: Status: Chronic (4) Gastrostomy status: Status: Chronic (5) Chronic respiratory failure: Status: Chronic SUBJECTIVE Fever:: none GI:: none Shortness of Breath:: none GI:: no complaints Pain:: none OBJECTIVE Most recent vital signs: Last Vital Signs Temp 97.0 F 10/21/23 06:00 Pulse 54 L 10/21/23 08:25 Resp 18 10/21/23 06:59 BP 107/62 10/21/23 08:25 Pulse Ox 97 10/21/23 06:59 O2 Del Method Blow-by 10/19/23 17:42 O2 Flow Rate 10 10/21/23 06:59 FiO2 35 10/21/23 06:59 Neurological:: awake Speech:: none Answers questions:: sometimes (Sometimes opens eyes to command.) Respiratory:: lungs clear Cardiovascular: RRR Abdomen: soft and nontender Extremities:: deformities Decubitus:: none Tracheostomy:: to blow by Feeding per:: G tube Complaints:: none ASSESSMENT & PLAN Assessment: Stable status. No improvement in cognitive function. Diagnosis and treatment reviewed. Prognosis poor. Plan: Current treatment continued as ongoing
--- NOTE | 2023-10-21 14:15 | PC.NURSE ---
Resident discharged from RNA program due to lack of benefit from PROM 3 x weekly. Resident remains on blow-by for tracheostomy; is non-responsive and postures defensively when turned and changed. Will continue to monitor for any changes; prognosis is presently poor for improvement.
[2023-10-22] VITALS (10 sets, daily range): BP systolic 95–112; BP diastolic 63–67; PULSE 58–86; RESP 16–20; TEMP 36.2–36.6; O2SAT 96–99
[2023-10-22] MEDS: PROPRANOLOL 10 MG TABLET 20 MG GT (05:25)
[2023-10-22] MEDS: DEXLANSOPRAZOLE 30 MG GT (08:40)
[2023-10-22] MEDS: TEARS BOTH EYES ×2 (08:40→20:25)
[2023-10-22] MEDS: [UNRECOGNIZED DRUG - OTHER] BOTH EYES ×2 (08:40→20:25)
[2023-10-22] MEDS: FLAX GT (08:41)
[2023-10-22] MEDS: [UNRECOGNIZED DRUG - OTHER] GT (08:41)
[2023-10-22] MEDS: FISH OIL GT (08:41)
[2023-10-22] MEDS: BORAGE GT (08:41)
[2023-10-22] MEDS: MULTIVIT-MIN/IRON FUM/FOLIC AC 1 EACH TABLET GT (08:42)
[2023-10-22] MEDS: SENNOSIDES 8.6 MG TABLET GT ×3 (08:43→21:43)
[2023-10-22] MEDS: ACETAMINOPHEN 325 MG TABLET 650 MG GT (14:35)
[2023-10-23] VITALS (10 sets, daily range): BP systolic 102–126; BP diastolic 65–75; PULSE 62–79; RESP 16–20; TEMP 36.1–36.6; O2SAT 94–98
[2023-10-23] MEDS: PROPRANOLOL 10 MG TABLET 20 MG GT ×3 (05:35→22:12)
[2023-10-23] MEDS: [UNRECOGNIZED DRUG - OTHER] BOTH EYES ×2 (09:16→20:36)
[2023-10-23] MEDS: TEARS BOTH EYES ×2 (09:16→20:36)
[2023-10-23] MEDS: DEXLANSOPRAZOLE 30 MG GT (09:50)
[2023-10-23] MEDS: FLAX GT (09:51)
[2023-10-23] MEDS: BORAGE GT (09:51)
[2023-10-23] MEDS: MULTIVIT-MIN/IRON FUM/FOLIC AC 1 EACH TABLET GT (09:51)
[2023-10-23] MEDS: FISH OIL GT (09:51)
[2023-10-23] MEDS: SENNOSIDES 8.6 MG TABLET GT ×2 (09:51→20:37)
[2023-10-23] MEDS: LOSARTAN 25 MG TABLET GT (09:51)
[2023-10-23] MEDS: [UNRECOGNIZED DRUG - OTHER] GT (09:51)
[2023-10-23] MEDS: MAGNESIUM HYDROXIDE 30 ML ORAL SUSP ML GT (09:52)
[2023-10-24] VITALS (10 sets, daily range): BP systolic 99–147; BP diastolic 63–93; PULSE 53–74; RESP 18–19; TEMP 36.2–36.4; O2SAT 96–98
[2023-10-24] MEDS: PROPRANOLOL 10 MG TABLET 20 MG GT ×3 (05:10→22:07)
[2023-10-24] MEDS: FISH OIL GT (09:01)
[2023-10-24] MEDS: BORAGE GT (09:01)
[2023-10-24] MEDS: FLAX GT (09:01)
[2023-10-24] MEDS: [UNRECOGNIZED DRUG - OTHER] BOTH EYES ×2 (09:01→20:04)
[2023-10-24] MEDS: LOSARTAN 25 MG TABLET GT (09:01)
[2023-10-24] MEDS: [UNRECOGNIZED DRUG - OTHER] GT (09:01)
[2023-10-24] MEDS: TEARS BOTH EYES ×2 (09:01→20:04)
[2023-10-24] MEDS: DEXLANSOPRAZOLE 30 MG GT (09:01)
[2023-10-24] MEDS: MULTIVIT-MIN/IRON FUM/FOLIC AC 1 EACH TABLET GT (09:02)
[2023-10-24] MEDS: SENNOSIDES 8.6 MG TABLET GT ×2 (09:03→20:04)
--- NOTE | 2023-10-24 13:09 | CHAP ---
11:00 AM Visited by spiritual care volunteer Provided prayer for Patient.
[2023-10-25] VITALS (10 sets, daily range): BP systolic 94–130; BP diastolic 53–80; PULSE 53–71; RESP 14–20; TEMP 36.3–36.4; O2SAT 95–100
[2023-10-25] MEDS: PROPRANOLOL 10 MG TABLET 20 MG GT ×3 (05:27→21:12)
[2023-10-25] MEDS: BORAGE GT (09:00)
[2023-10-25] MEDS: FLAX GT (09:00)
[2023-10-25] MEDS: FISH OIL GT (09:00)
[2023-10-25] MEDS: [UNRECOGNIZED DRUG - OTHER] GT (09:00)
[2023-10-25] MEDS: DEXLANSOPRAZOLE 30 MG GT (09:00)
[2023-10-25] MEDS: SENNOSIDES 8.6 MG TABLET GT ×2 (09:01→20:21)
[2023-10-25] MEDS: MULTIVIT-MIN/IRON FUM/FOLIC AC 1 EACH TABLET GT (09:01)
[2023-10-25] MEDS: LOSARTAN 25 MG TABLET GT (09:01)
[2023-10-25] MEDS: [UNRECOGNIZED DRUG - OTHER] BOTH EYES ×2 (09:02→20:21)
[2023-10-25] MEDS: TEARS BOTH EYES ×2 (09:02→20:21)
--- NOTE | 2023-10-25 11:25 | CHAP ---
Patient was visited by the Spiritual Care Volunteer who prayed for them. (Volunteer was in the hospital from 9:40-11:25).
--- NOTE | 2023-10-25 14:05 | PD.SAPROG ---
Progress Note - SubAcute DIAGNOSIS (1) Traumatic brain injury: Status: Chronic (2) Anoxic brain damage, not elsewhere classified: Status: Chronic (3) Tracheostomy status: Status: Chronic (4) Gastrostomy status: Status: Chronic (5) Chronic respiratory failure: Status: Chronic SUBJECTIVE Fever:: none GI:: none Shortness of Breath:: none GI:: no complaints Pain:: none OBJECTIVE Most recent vital signs: Last Vital Signs Temp 97.6 F 10/29/23 06:00 Pulse 97 10/29/23 06:00 Resp 15 10/29/23 06:00 BP 151/90 H 10/29/23 06:00 Pulse Ox 98 10/29/23 06:00 O2 Del Method Blow-by 10/29/23 06:00 O2 Flow Rate 10 10/29/23 06:00 FiO2 35 10/29/23 06:00 Neurological:: awake Speech:: none Answers questions:: sometimes (Sometimes opens eyes to command.) Respiratory:: lungs clear Cardiovascular: RRR Abdomen: soft and nontender Extremities:: deformities Decubitus:: none Tracheostomy:: to blow by Feeding per:: G tube Complaints:: none ASSESSMENT & PLAN Assessment: Stable status. No improvement in cognitive function. Diagnosis and treatment reviewed. Prognosis poor. Plan: Current treatment continued as ongoing
--- NOTE | 2023-10-25 14:55 | PC.SS ---
Room Visit: Resident is laying in bed with head of the bed elevated with call light properly placed. Resident is well groomed, showing no changes in mood or behavior. Resident will remain in current care as he is total care unable to makes needs known. Resident will remain in current care and will have all needs met for subacute care.
[2023-10-26] VITALS (9 sets, daily range): BP systolic 99–124; BP diastolic 57–81; PULSE 60–82; RESP 18–20; TEMP 36.4–36.8; O2SAT 95–97
[2023-10-26] MEDS: PROPRANOLOL 10 MG TABLET 20 MG GT ×3 (05:30→21:15)
[2023-10-26] MEDS: DEXLANSOPRAZOLE 30 MG GT (09:10)
[2023-10-26] MEDS: FLAX GT (09:10)
[2023-10-26] MEDS: BORAGE GT (09:10)
[2023-10-26] MEDS: LOSARTAN 25 MG TABLET GT (09:10)
[2023-10-26] MEDS: [UNRECOGNIZED DRUG - OTHER] GT (09:10)
[2023-10-26] MEDS: FISH OIL GT (09:10)
[2023-10-26] MEDS: MULTIVIT-MIN/IRON FUM/FOLIC AC 1 EACH TABLET GT (09:11)
[2023-10-26] MEDS: SENNOSIDES 8.6 MG TABLET GT ×2 (09:12→21:15)
[2023-10-26] MEDS: [UNRECOGNIZED DRUG - OTHER] BOTH EYES ×2 (09:35→21:15)
[2023-10-26] MEDS: TEARS BOTH EYES ×2 (09:35→21:15)
[2023-10-27] VITALS (10 sets, daily range): BP systolic 93–120; BP diastolic 60–71; PULSE 50–101; RESP 16–19; TEMP 36.3–36.6; O2SAT 88–100
[2023-10-27] MEDS: DEXLANSOPRAZOLE 30 MG GT (09:15)
[2023-10-27] MEDS: TEARS BOTH EYES ×2 (09:15→20:19)
[2023-10-27] MEDS: [UNRECOGNIZED DRUG - OTHER] BOTH EYES ×2 (09:15→20:19)
[2023-10-27] MEDS: BORAGE GT (09:17)
[2023-10-27] MEDS: FLAX GT (09:17)
[2023-10-27] MEDS: LOSARTAN 25 MG TABLET GT (09:17)
[2023-10-27] MEDS: [UNRECOGNIZED DRUG - OTHER] GT (09:17)
[2023-10-27] MEDS: FISH OIL GT (09:17)
[2023-10-27] MEDS: MULTIVIT-MIN/IRON FUM/FOLIC AC 1 EACH TABLET GT (09:18)
[2023-10-27] MEDS: SENNOSIDES 8.6 MG TABLET GT ×2 (09:19→20:19)
[2023-10-27] MEDS: PROPRANOLOL 10 MG TABLET 20 MG GT (14:38)
[2023-10-28] VITALS (10 sets, daily range): BP systolic 95–121; BP diastolic 63–73; PULSE 61–77; RESP 16–18; TEMP 36.3–36.6; O2SAT 94–100
[2023-10-28] MEDS: [UNRECOGNIZED DRUG - OTHER] BOTH EYES ×2 (09:14→21:14)
[2023-10-28] MEDS: TEARS BOTH EYES ×2 (09:14→21:14)
[2023-10-28] MEDS: BORAGE GT (09:15)
[2023-10-28] MEDS: MULTIVIT-MIN/IRON FUM/FOLIC AC 1 EACH TABLET GT (09:15)
[2023-10-28] MEDS: FLAX GT (09:15)
[2023-10-28] MEDS: LOSARTAN 25 MG TABLET GT (09:15)
[2023-10-28] MEDS: SENNOSIDES 8.6 MG TABLET GT ×2 (09:15→21:14)
[2023-10-28] MEDS: DEXLANSOPRAZOLE 30 MG GT (09:15)
[2023-10-28] MEDS: FISH OIL GT (09:15)
[2023-10-28] MEDS: [UNRECOGNIZED DRUG - OTHER] GT (09:15)
[2023-10-28] MEDS: PROPRANOLOL 10 MG TABLET 20 MG GT (14:21)
[2023-10-29] VITALS (11 sets, daily range): BP systolic 91–151; BP diastolic 60–90; PULSE 61–97; RESP 15–18; TEMP 36.3–36.7; O2SAT 94–98
[2023-10-29] MEDS: PROPRANOLOL 10 MG TABLET 20 MG GT ×2 (05:45→14:36)
[2023-10-29] MEDS: TEARS BOTH EYES ×2 (09:05→20:51)
[2023-10-29] MEDS: DEXLANSOPRAZOLE 30 MG GT (09:05)
[2023-10-29] MEDS: [UNRECOGNIZED DRUG - OTHER] BOTH EYES ×2 (09:05→20:51)
[2023-10-29] MEDS: [UNRECOGNIZED DRUG - OTHER] GT (09:07)
[2023-10-29] MEDS: BORAGE GT (09:07)
[2023-10-29] MEDS: SENNOSIDES 8.6 MG TABLET GT ×2 (09:07→20:52)
[2023-10-29] MEDS: MULTIVIT-MIN/IRON FUM/FOLIC AC 1 EACH TABLET GT (09:07)
[2023-10-29] MEDS: FLAX GT (09:07)
[2023-10-29] MEDS: FISH OIL GT (09:07)
[2023-10-30] VITALS (10 sets, daily range): BP systolic 93–137; BP diastolic 54–81; PULSE 55–91; RESP 16–22; TEMP 36.4–36.6; O2SAT 94–97
[2023-10-30] MEDS: PROPRANOLOL 10 MG TABLET 20 MG GT (05:13)
[2023-10-30] MEDS: TEARS BOTH EYES ×2 (08:30→20:50)
[2023-10-30] MEDS: [UNRECOGNIZED DRUG - OTHER] BOTH EYES ×2 (08:30→20:50)
[2023-10-30] MEDS: FLAX GT (08:31)
[2023-10-30] MEDS: LOSARTAN 25 MG TABLET GT (08:31)
[2023-10-30] MEDS: DEXLANSOPRAZOLE 30 MG GT (08:31)
[2023-10-30] MEDS: BORAGE GT (08:31)
[2023-10-30] MEDS: MULTIVIT-MIN/IRON FUM/FOLIC AC 1 EACH TABLET GT (08:31)
[2023-10-30] MEDS: SENNOSIDES 8.6 MG TABLET GT ×2 (08:31→20:51)
[2023-10-30] MEDS: [UNRECOGNIZED DRUG - OTHER] GT (08:31)
[2023-10-30] MEDS: FISH OIL GT (08:31)
[2023-10-31] VITALS (11 sets, daily range): BP systolic 96–126; BP diastolic 57–77; PULSE 59–83; RESP 16–18; TEMP 36.4–36.6; O2SAT 95–99
[2023-10-31] MEDS: MAGNESIUM HYDROXIDE 30 ML ORAL SUSP ML GT (03:53)
[2023-10-31] MEDS: [UNRECOGNIZED DRUG - OTHER] BOTH EYES ×2 (08:20→21:07)
[2023-10-31] MEDS: DEXLANSOPRAZOLE 30 MG GT (08:20)
[2023-10-31] MEDS: TEARS BOTH EYES ×2 (08:20→21:07)
[2023-10-31] MEDS: LOSARTAN 25 MG TABLET GT (08:20)
[2023-10-31] MEDS: FISH OIL GT (08:20)
[2023-10-31] MEDS: FLAX GT (08:20)
[2023-10-31] MEDS: MULTIVIT-MIN/IRON FUM/FOLIC AC 1 EACH TABLET GT (08:20)
[2023-10-31] MEDS: BORAGE GT (08:20)
[2023-10-31] MEDS: [UNRECOGNIZED DRUG - OTHER] GT (08:20)
[2023-10-31] MEDS: SENNOSIDES 8.6 MG TABLET GT ×2 (08:21→21:08)
--- NOTE | 2023-10-31 12:57 | CHAP ---
11:00 AM Visited by spiritual care volunteer Provided prayer for Patient.
[2023-11-01] VITALS (10 sets, daily range): BP systolic 97–121; BP diastolic 61–75; PULSE 57–78; RESP 16–18; TEMP 36.5–36.6; O2SAT 96–99
[2023-11-01] MEDS: PROPRANOLOL 10 MG TABLET 20 MG GT ×3 (05:31→23:53)
[2023-11-01] MEDS: FLAX GT (09:29)
[2023-11-01] MEDS: MULTIVIT-MIN/IRON FUM/FOLIC AC 1 EACH TABLET GT (09:29)
[2023-11-01] MEDS: BORAGE GT (09:29)
[2023-11-01] MEDS: DEXLANSOPRAZOLE 30 MG GT (09:29)
[2023-11-01] MEDS: SENNOSIDES 8.6 MG TABLET GT ×2 (09:29→23:53)
[2023-11-01] MEDS: FISH OIL GT (09:29)
[2023-11-01] MEDS: LOSARTAN 25 MG TABLET GT (09:29)
[2023-11-01] MEDS: [UNRECOGNIZED DRUG - OTHER] GT (09:29)
[2023-11-01] MEDS: TEARS BOTH EYES ×2 (09:29→23:53)
[2023-11-01] MEDS: [UNRECOGNIZED DRUG - OTHER] BOTH EYES ×2 (09:29→23:53)
[2023-11-01] MEDS: MAGNESIUM HYDROXIDE 30 ML ORAL SUSP ML GT (09:37)
--- NOTE | 2023-11-01 10:54 | CHAP ---
Spiritual Care Volunteer prayed for patient. (Volunteer was in the hospital from 09:38-12:50).
--- NOTE | 2023-11-01 15:14 | PC.SS ---
Room visit: Resident is laying in bed with head of the bed elevated, resident is well groomed with call light properly placed with no signs of distress. Resident currently does not have any care or condition, resident will remain in current care. SSD to continue to make daily contact with resident and monitor mood and behavior for any changes.
[2023-11-02] VITALS (9 sets, daily range): BP systolic 102–119; BP diastolic 59–71; PULSE 56–76; RESP 18–20; TEMP 36.2–36.6; O2SAT 96–98
[2023-11-02] MEDS: PROPRANOLOL 10 MG TABLET 20 MG GT ×3 (05:47→21:30)
[2023-11-02] MEDS: TEARS BOTH EYES ×2 (08:38→21:30)
[2023-11-02] MEDS: [UNRECOGNIZED DRUG - OTHER] BOTH EYES ×2 (08:38→21:30)
[2023-11-02] MEDS: DEXLANSOPRAZOLE 30 MG GT (08:39)
[2023-11-02] MEDS: LOSARTAN 25 MG TABLET GT (08:40)
[2023-11-02] MEDS: BORAGE GT (08:40)
[2023-11-02] MEDS: [UNRECOGNIZED DRUG - OTHER] GT (08:40)
[2023-11-02] MEDS: FLAX GT (08:40)
[2023-11-02] MEDS: FISH OIL GT (08:40)
[2023-11-02] MEDS: MULTIVIT-MIN/IRON FUM/FOLIC AC 1 EACH TABLET GT (08:41)
[2023-11-02] MEDS: SENNOSIDES 8.6 MG TABLET GT ×2 (08:41→21:30)
--- NOTE | 2023-11-02 23:45 | PD.SAPROG ---
Progress Note - SubAcute DIAGNOSIS (1) Traumatic brain injury: Status: Chronic (2) Anoxic brain damage, not elsewhere classified: Status: Chronic (3) Tracheostomy status: Status: Chronic (4) Gastrostomy status: Status: Chronic (5) Chronic respiratory failure: Status: Chronic SUBJECTIVE Fever:: none GI:: none Shortness of Breath:: none GI:: no complaints Pain:: none OBJECTIVE Most recent vital signs: Last Vital Signs Temp 97.8 F 11/02/23 18:00 Pulse 71 11/02/23 21:30 Resp 20 11/02/23 18:00 BP 102/59 L 11/02/23 21:30 Pulse Ox 98 11/02/23 18:00 O2 Del Method Blow-by 11/01/23 17:52 O2 Flow Rate 10 11/02/23 07:45 FiO2 35 11/02/23 07:45 Neurological:: awake Speech:: none Answers questions:: sometimes (Sometimes opens eyes to command.) Respiratory:: lungs clear Cardiovascular: RRR Abdomen: soft and nontender Extremities:: deformities Decubitus:: none Tracheostomy:: to blow by Feeding per:: G tube Complaints:: none ASSESSMENT & PLAN Assessment: Stable status. No improvement in cognitive function. Diagnosis and treatment reviewed. Prognosis poor. Plan: Current treatment continued as ongoing
[2023-11-03] VITALS (12 sets, daily range): BP systolic 92–118; BP diastolic 55–73; PULSE 55–76; RESP 18–20; TEMP 36.1–36.7; O2SAT 95–97
[2023-11-03] MEDS: PROPRANOLOL 10 MG TABLET 20 MG GT ×4 (05:37→21:30)
[2023-11-03] MEDS: [UNRECOGNIZED DRUG - OTHER] BOTH EYES ×2 (08:55→21:16)
[2023-11-03] MEDS: DEXLANSOPRAZOLE 30 MG GT (08:55)
[2023-11-03] MEDS: TEARS BOTH EYES ×2 (08:55→21:16)
[2023-11-03] MEDS: MULTIVIT-MIN/IRON FUM/FOLIC AC 1 EACH TABLET GT (08:56)
[2023-11-03] MEDS: BORAGE GT (08:56)
[2023-11-03] MEDS: FISH OIL GT (08:56)
[2023-11-03] MEDS: FLAX GT (08:56)
[2023-11-03] MEDS: [UNRECOGNIZED DRUG - OTHER] GT (08:56)
[2023-11-03] MEDS: SENNOSIDES 8.6 MG TABLET GT ×2 (08:57→21:17)
[2023-11-04] VITALS (7 sets, daily range): BP systolic 101–119; BP diastolic 64–73; PULSE 48–75; RESP 18–20; TEMP 36.2–36.4; O2SAT 96
[2023-11-04] MEDS: TEARS BOTH EYES ×2 (09:11→20:43)
[2023-11-04] MEDS: [UNRECOGNIZED DRUG - OTHER] BOTH EYES ×2 (09:11→20:43)
[2023-11-04] MEDS: [UNRECOGNIZED DRUG - OTHER] GT (09:12)
[2023-11-04] MEDS: BORAGE GT (09:12)
[2023-11-04] MEDS: DEXLANSOPRAZOLE 30 MG GT (09:12)
[2023-11-04] MEDS: MULTIVIT-MIN/IRON FUM/FOLIC AC 1 EACH TABLET GT (09:12)
[2023-11-04] MEDS: FISH OIL GT (09:12)
[2023-11-04] MEDS: FLAX GT (09:12)
[2023-11-04] MEDS: SENNOSIDES 8.6 MG TABLET GT ×2 (09:12→20:43)
[2023-11-04] MEDS: LOSARTAN 25 MG TABLET GT (09:12)
[2023-11-04] MEDS: PROPRANOLOL 10 MG TABLET 20 MG GT (14:24)
[2023-11-05] VITALS (8 sets, daily range): BP systolic 93–113; BP diastolic 60–74; PULSE 52–69; RESP 17–18; TEMP 36.1–36.6; O2SAT 93–98
[2023-11-05] MEDS: [UNRECOGNIZED DRUG - OTHER] BOTH EYES ×2 (08:22→20:46)
[2023-11-05] MEDS: FLAX GT (08:22)
[2023-11-05] MEDS: BORAGE GT (08:22)
[2023-11-05] MEDS: FISH OIL GT (08:22)
[2023-11-05] MEDS: DEXLANSOPRAZOLE 30 MG GT (08:22)
[2023-11-05] MEDS: [UNRECOGNIZED DRUG - OTHER] GT (08:22)
[2023-11-05] MEDS: SENNOSIDES 8.6 MG TABLET GT ×2 (08:22→20:46)
[2023-11-05] MEDS: TEARS BOTH EYES ×2 (08:22→20:46)
[2023-11-05] MEDS: MULTIVIT-MIN/IRON FUM/FOLIC AC 1 EACH TABLET GT (08:22)
[2023-11-05] MEDS: MAGNESIUM HYDROXIDE 30 ML ORAL SUSP ML GT (08:23)
[2023-11-05] MEDS: PROPRANOLOL 10 MG TABLET 20 MG GT (14:23)
[2023-11-06] VITALS (7 sets, daily range): BP systolic 118–124; BP diastolic 64–77; PULSE 71–82; RESP 18–20; TEMP 36.3–36.5; O2SAT 93–97
[2023-11-06] MEDS: PROPRANOLOL 10 MG TABLET 20 MG GT (05:18)
[2023-11-06] MEDS: DEXLANSOPRAZOLE 30 MG GT (08:20)
[2023-11-06] MEDS: FISH OIL GT (08:20)
[2023-11-06] MEDS: FLAX GT (08:20)
[2023-11-06] MEDS: MULTIVIT-MIN/IRON FUM/FOLIC AC 1 EACH TABLET GT (08:20)
[2023-11-06] MEDS: LOSARTAN 25 MG TABLET GT (08:20)
[2023-11-06] MEDS: [UNRECOGNIZED DRUG - OTHER] GT (08:20)
[2023-11-06] MEDS: BORAGE GT (08:20)
[2023-11-06] MEDS: [UNRECOGNIZED DRUG - OTHER] BOTH EYES (08:20)
[2023-11-06] MEDS: TEARS BOTH EYES (08:20)
[2023-11-06] MEDS: SENNOSIDES 8.6 MG TABLET GT (08:21)
--- NOTE | 2023-11-06 20:48 | PD.SAPROG ---
Progress Note - SubAcute DIAGNOSIS (1) Traumatic brain injury: Status: Chronic (2) Anoxic brain damage, not elsewhere classified: Status: Chronic (3) Tracheostomy status: Status: Chronic (4) Gastrostomy status: Status: Chronic (5) Chronic respiratory failure: Status: Chronic SUBJECTIVE Fever:: none GI:: none Shortness of Breath:: none GI:: no complaints Pain:: none OBJECTIVE Most recent vital signs: Last Vital Signs Temp 97.7 F 11/06/23 06:00 Pulse 71 11/06/23 08:20 Resp 18 11/06/23 06:00 BP 124/77 11/06/23 08:20 Pulse Ox 93 L 11/06/23 06:00 O2 Del Method Blow-by 11/06/23 06:00 O2 Flow Rate 10 11/06/23 06:00 FiO2 35 11/06/23 06:00 Neurological:: awake Speech:: none Answers questions:: sometimes (Sometimes opens eyes to command.) Respiratory:: lungs clear Cardiovascular: RRR Abdomen: soft and nontender Extremities:: deformities Decubitus:: none Tracheostomy:: to blow by Feeding per:: G tube Complaints:: none ASSESSMENT & PLAN Assessment: Stable status. No improvement in cognitive function. Diagnosis and treatment reviewed. Prognosis poor. Plan: Current treatment continued as ongoing
[2023-11-07] VITALS (10 sets, daily range): BP systolic 91–130; BP diastolic 62–85; PULSE 60–91; RESP 18–20; TEMP 36.4–36.6; O2SAT 94–98
[2023-11-07] MEDS: TEARS BOTH EYES ×2 (09:17→21:43)
[2023-11-07] MEDS: [UNRECOGNIZED DRUG - OTHER] BOTH EYES ×2 (09:17→21:43)
[2023-11-07] MEDS: DEXLANSOPRAZOLE 30 MG GT (09:18)
[2023-11-07] MEDS: FISH OIL GT (09:18)
[2023-11-07] MEDS: BORAGE GT (09:18)
[2023-11-07] MEDS: FLAX GT (09:18)
[2023-11-07] MEDS: SENNOSIDES 8.6 MG TABLET GT ×2 (09:18→21:43)
[2023-11-07] MEDS: [UNRECOGNIZED DRUG - OTHER] GT (09:18)
[2023-11-07] MEDS: MULTIVIT-MIN/IRON FUM/FOLIC AC 1 EACH TABLET GT (09:19)
--- NOTE | 2023-11-07 13:30 | CHAP ---
11:00 AM Visited by spiritual care volunteer Provided prayer for Patient.
[2023-11-07] MEDS: PROPRANOLOL 10 MG TABLET 20 MG GT ×2 (14:54→21:50)
[2023-11-08] VITALS (9 sets, daily range): BP systolic 98–125; BP diastolic 56–71; PULSE 51–83; RESP 16–20; TEMP 36.4–36.8; O2SAT 95–96
[2023-11-08] MEDS: PROPRANOLOL 10 MG TABLET 20 MG GT ×2 (05:13→21:31)
[2023-11-08] MEDS: [UNRECOGNIZED DRUG - OTHER] BOTH EYES ×2 (09:04→21:32)
[2023-11-08] MEDS: DEXLANSOPRAZOLE 30 MG GT (09:04)
[2023-11-08] MEDS: SENNOSIDES 8.6 MG TABLET GT ×2 (09:04→21:32)
[2023-11-08] MEDS: TEARS BOTH EYES ×2 (09:04→21:32)
[2023-11-08] MEDS: LOSARTAN 25 MG TABLET GT (09:05)
[2023-11-08] MEDS: BORAGE GT (09:05)
[2023-11-08] MEDS: FLAX GT (09:05)
[2023-11-08] MEDS: FISH OIL GT (09:05)
[2023-11-08] MEDS: [UNRECOGNIZED DRUG - OTHER] GT (09:05)
[2023-11-08] MEDS: MULTIVIT-MIN/IRON FUM/FOLIC AC 1 EACH TABLET GT (09:08)
--- NOTE | 2023-11-08 12:50 | CHAP ---
Patient was visited by the Spiritual Care Volunteer who prayed for them. (Volunteer was in the sub acute C 10:00-11:00)
[2023-11-09] VITALS (10 sets, daily range): BP systolic 98–123; BP diastolic 62–78; PULSE 56–79; RESP 16–20; TEMP 36.4–36.6; O2SAT 95–98
[2023-11-09] MEDS: PROPRANOLOL 10 MG TABLET 20 MG GT ×2 (05:10→21:31)
[2023-11-09] MEDS: MULTIVIT-MIN/IRON FUM/FOLIC AC 1 EACH TABLET GT (09:13)
[2023-11-09] MEDS: DEXLANSOPRAZOLE 30 MG GT (09:13)
[2023-11-09] MEDS: FISH OIL GT (09:13)
[2023-11-09] MEDS: BORAGE GT (09:13)
[2023-11-09] MEDS: SENNOSIDES 8.6 MG TABLET GT ×2 (09:13→21:31)
[2023-11-09] MEDS: [UNRECOGNIZED DRUG - OTHER] GT (09:13)
[2023-11-09] MEDS: TEARS BOTH EYES ×2 (09:13→21:31)
[2023-11-09] MEDS: [UNRECOGNIZED DRUG - OTHER] BOTH EYES ×2 (09:13→21:31)
[2023-11-09] MEDS: FLAX GT (09:13)
[2023-11-09] MEDS: MAGNESIUM HYDROXIDE 30 ML ORAL SUSP ML GT (09:14)
[2023-11-09] MEDS: LOSARTAN 25 MG TABLET GT (09:14)
[2023-11-10] VITALS (10 sets, daily range): BP systolic 92–107; BP diastolic 55–71; PULSE 54–74; RESP 17–20; TEMP 36.3–36.6; O2SAT 95–97
[2023-11-10] MEDS: [UNRECOGNIZED DRUG - OTHER] BOTH EYES ×2 (09:02→20:44)
[2023-11-10] MEDS: TEARS BOTH EYES ×2 (09:02→20:44)
[2023-11-10] MEDS: SENNOSIDES 8.6 MG TABLET GT ×2 (09:02→20:44)
[2023-11-10] MEDS: [UNRECOGNIZED DRUG - OTHER] GT (09:03)
[2023-11-10] MEDS: DEXLANSOPRAZOLE 30 MG GT (09:03)
[2023-11-10] MEDS: BORAGE GT (09:03)
[2023-11-10] MEDS: FLAX GT (09:03)
[2023-11-10] MEDS: FISH OIL GT (09:03)
[2023-11-10] MEDS: MULTIVIT-MIN/IRON FUM/FOLIC AC 1 EACH TABLET GT (09:04)
--- NOTE | 2023-11-10 15:51 | PD.SAPROG ---
Progress Note - SubAcute DIAGNOSIS (1) Traumatic brain injury: Status: Chronic (2) Anoxic brain damage, not elsewhere classified: Status: Chronic (3) Tracheostomy status: Status: Chronic (4) Gastrostomy status: Status: Chronic (5) Chronic respiratory failure: Status: Chronic SUBJECTIVE Fever:: none GI:: none Shortness of Breath:: none GI:: no complaints Pain:: none OBJECTIVE Most recent vital signs: Last Vital Signs Temp 97.3 F 11/10/23 05:57 Pulse 68 11/10/23 13:36 Resp 19 11/10/23 07:13 BP 94/66 11/10/23 13:36 Pulse Ox 96 11/10/23 07:13 O2 Del Method Blow-by 11/07/23 17:33 O2 Flow Rate 10 11/10/23 07:13 FiO2 35 11/10/23 07:13 Neurological:: awake Speech:: none Answers questions:: sometimes (Sometimes opens eyes to command.) Respiratory:: lungs clear Cardiovascular: RRR Abdomen: soft and nontender Extremities:: deformities Decubitus:: none Tracheostomy:: to blow by Feeding per:: G tube Complaints:: none ASSESSMENT & PLAN Assessment: Stable status. No improvement in cognitive function. Diagnosis and treatment reviewed. Prognosis poor. Plan: Current treatment continued as ongoing
[2023-11-11] VITALS (10 sets, daily range): BP systolic 96–124; BP diastolic 59–76; PULSE 53–71; RESP 16–19; TEMP 36.2–36.8; O2SAT 96–97
[2023-11-11] MEDS: PROPRANOLOL 10 MG TABLET 20 MG GT ×3 (05:16→21:29)
[2023-11-11] MEDS: FLAX GT (08:34)
[2023-11-11] MEDS: FISH OIL GT (08:34)
[2023-11-11] MEDS: SENNOSIDES 8.6 MG TABLET GT ×2 (08:34→21:29)
[2023-11-11] MEDS: TEARS BOTH EYES ×2 (08:34→21:29)
[2023-11-11] MEDS: [UNRECOGNIZED DRUG - OTHER] GT (08:34)
[2023-11-11] MEDS: DEXLANSOPRAZOLE 30 MG GT (08:34)
[2023-11-11] MEDS: [UNRECOGNIZED DRUG - OTHER] BOTH EYES ×2 (08:34→21:29)
[2023-11-11] MEDS: BORAGE GT (08:34)
[2023-11-11] MEDS: LOSARTAN 25 MG TABLET GT (08:35)
[2023-11-11] MEDS: MULTIVIT-MIN/IRON FUM/FOLIC AC 1 EACH TABLET GT (08:35)
--- NOTE | 2023-11-11 11:10 | PC.CWCCOMPLE ---
Clinical Research Director Pharmacist monthly MRR
[2023-11-12] VITALS (10 sets, daily range): BP systolic 104–113; BP diastolic 60–72; PULSE 54–76; RESP 18–20; TEMP 36.1–36.5; O2SAT 98–100
[2023-11-12] MEDS: PROPRANOLOL 10 MG TABLET 20 MG GT ×3 (05:25→21:45)
[2023-11-12] MEDS: [UNRECOGNIZED DRUG - OTHER] BOTH EYES ×2 (09:30→20:31)
[2023-11-12] MEDS: TEARS BOTH EYES ×2 (09:30→20:31)
[2023-11-12] MEDS: SENNOSIDES 8.6 MG TABLET GT ×2 (09:31→20:31)
[2023-11-12] MEDS: BORAGE GT (09:31)
[2023-11-12] MEDS: DEXLANSOPRAZOLE 30 MG GT (09:31)
[2023-11-12] MEDS: FLAX GT (09:31)
[2023-11-12] MEDS: [UNRECOGNIZED DRUG - OTHER] GT (09:31)
[2023-11-12] MEDS: FISH OIL GT (09:31)
[2023-11-12] MEDS: LOSARTAN 25 MG TABLET GT (09:31)
[2023-11-12] MEDS: MULTIVIT-MIN/IRON FUM/FOLIC AC 1 EACH TABLET GT (09:32)
[2023-11-12] MEDS: MAGNESIUM HYDROXIDE 30 ML ORAL SUSP ML GT (10:06)
--- NOTE | 2023-11-12 14:10 | PD.SAPROG ---
Progress Note - SubAcute DIAGNOSIS (1) Traumatic brain injury: Status: Chronic (2) Anoxic brain damage, not elsewhere classified: Status: Chronic (3) Tracheostomy status: Status: Chronic (4) Gastrostomy status: Status: Chronic (5) Chronic respiratory failure: Status: Chronic SUBJECTIVE Fever:: none GI:: none Shortness of Breath:: none GI:: no complaints Pain:: none OBJECTIVE Most recent vital signs: Last Vital Signs Temp 97.5 F 11/17/23 17:47 Pulse 70 11/17/23 17:47 Resp 18 11/17/23 17:47 BP 102/73 11/17/23 17:47 Pulse Ox 97 11/17/23 17:47 O2 Del Method Blow-by 11/17/23 06:00 O2 Flow Rate 10 11/17/23 07:01 FiO2 35 11/17/23 07:01 Neurological:: awake Speech:: none Answers questions:: sometimes (Sometimes opens eyes to command.) Respiratory:: lungs clear Cardiovascular: RRR Abdomen: soft and nontender Extremities:: deformities Decubitus:: none Tracheostomy:: to blow by Feeding per:: G tube Complaints:: none ASSESSMENT & PLAN Assessment: Stable status. No improvement in cognitive function. Diagnosis and treatment reviewed. Prognosis poor. Plan: Current treatment continued as ongoing
[2023-11-13] VITALS (9 sets, daily range): BP systolic 102–122; BP diastolic 59–80; PULSE 52–78; RESP 17–20; TEMP 36.1–36.5; O2SAT 94–97
[2023-11-13] MEDS: PROPRANOLOL 10 MG TABLET 20 MG GT ×3 (06:01→21:12)
[2023-11-13] MEDS: FISH OIL GT (09:01)
[2023-11-13] MEDS: LOSARTAN 25 MG TABLET GT (09:01)
[2023-11-13] MEDS: [UNRECOGNIZED DRUG - OTHER] BOTH EYES ×2 (09:01→20:52)
[2023-11-13] MEDS: FLAX GT (09:01)
[2023-11-13] MEDS: DEXLANSOPRAZOLE 30 MG GT (09:01)
[2023-11-13] MEDS: SENNOSIDES 8.6 MG TABLET GT ×2 (09:01→20:52)
[2023-11-13] MEDS: [UNRECOGNIZED DRUG - OTHER] GT (09:01)
[2023-11-13] MEDS: TEARS BOTH EYES ×2 (09:01→20:52)
[2023-11-13] MEDS: BORAGE GT (09:01)
[2023-11-13] MEDS: MULTIVIT-MIN/IRON FUM/FOLIC AC 1 EACH TABLET GT (09:02)
[2023-11-14] VITALS (11 sets, daily range): BP systolic 98–117; BP diastolic 59–72; PULSE 54–79; RESP 18–19; TEMP 36.2–36.4; O2SAT 96–98
[2023-11-14] MEDS: BORAGE GT (08:25)
[2023-11-14] MEDS: [UNRECOGNIZED DRUG - OTHER] BOTH EYES ×2 (08:25→20:45)
[2023-11-14] MEDS: DEXLANSOPRAZOLE 30 MG GT (08:25)
[2023-11-14] MEDS: FISH OIL GT (08:25)
[2023-11-14] MEDS: [UNRECOGNIZED DRUG - OTHER] GT (08:25)
[2023-11-14] MEDS: FLAX GT (08:25)
[2023-11-14] MEDS: TEARS BOTH EYES ×2 (08:25→20:45)
[2023-11-14] MEDS: SENNOSIDES 8.6 MG TABLET GT ×2 (08:25→20:45)
[2023-11-14] MEDS: MULTIVIT-MIN/IRON FUM/FOLIC AC 1 EACH TABLET GT (08:26)
[2023-11-14] MEDS: LOSARTAN 25 MG TABLET GT (08:26)
--- NOTE | 2023-11-14 13:36 | CHAP ---
11:30 AM Visited by spiritual care volunteer Provided prayer for Patient.
[2023-11-14] MEDS: PROPRANOLOL 10 MG TABLET 20 MG GT ×2 (14:10→21:18)
[2023-11-15] VITALS (10 sets, daily range): BP systolic 97–126; BP diastolic 63–74; PULSE 55–72; RESP 17–18; TEMP 36.2–36.4; O2SAT 95–97
[2023-11-15] MEDS: PROPRANOLOL 10 MG TABLET 20 MG GT ×3 (05:25→22:00)
[2023-11-15] MEDS: TEARS BOTH EYES ×2 (09:07→20:41)
[2023-11-15] MEDS: [UNRECOGNIZED DRUG - OTHER] BOTH EYES ×2 (09:07→20:41)
[2023-11-15] MEDS: SENNOSIDES 8.6 MG TABLET GT ×2 (09:08→20:41)
[2023-11-15] MEDS: DEXLANSOPRAZOLE 30 MG GT (09:08)
[2023-11-15] MEDS: FLAX GT (09:09)
[2023-11-15] MEDS: MULTIVIT-MIN/IRON FUM/FOLIC AC 1 EACH TABLET GT (09:09)
[2023-11-15] MEDS: [UNRECOGNIZED DRUG - OTHER] GT (09:09)
[2023-11-15] MEDS: FISH OIL GT (09:09)
[2023-11-15] MEDS: LOSARTAN 25 MG TABLET GT (09:09)
[2023-11-15] MEDS: BORAGE GT (09:09)
[2023-11-15] MEDS: MAGNESIUM HYDROXIDE 30 ML ORAL SUSP ML GT (20:43)
[2023-11-16] VITALS (10 sets, daily range): BP systolic 93–114; BP diastolic 56–76; PULSE 56–87; RESP 17–18; TEMP 36.2–36.6; O2SAT 95–97
[2023-11-16] MEDS: TEARS BOTH EYES ×2 (08:58→21:14)
[2023-11-16] MEDS: LOSARTAN 25 MG TABLET GT (08:58)
[2023-11-16] MEDS: BORAGE GT (08:58)
[2023-11-16] MEDS: FLAX GT (08:58)
[2023-11-16] MEDS: [UNRECOGNIZED DRUG - OTHER] BOTH EYES ×2 (08:58→21:14)
[2023-11-16] MEDS: FISH OIL GT (08:58)
[2023-11-16] MEDS: DEXLANSOPRAZOLE 30 MG GT (08:58)
[2023-11-16] MEDS: [UNRECOGNIZED DRUG - OTHER] GT (08:58)
[2023-11-16] MEDS: SENNOSIDES 8.6 MG TABLET GT ×2 (08:59→21:14)
[2023-11-16] MEDS: MULTIVIT-MIN/IRON FUM/FOLIC AC 1 EACH TABLET GT (08:59)
[2023-11-16] MEDS: ACETAMINOPHEN 325 MG TABLET 650 MG GT (21:15)
[2023-11-16] MEDS: PROPRANOLOL 10 MG TABLET 20 MG GT (21:15)
[2023-11-17] VITALS (10 sets, daily range): BP systolic 92–119; BP diastolic 56–73; PULSE 48–72; RESP 18–20; TEMP 36.2–36.7; O2SAT 95–100
[2023-11-17] MEDS: PROPRANOLOL 10 MG TABLET 20 MG GT ×2 (05:07→20:41)
[2023-11-17] MEDS: [UNRECOGNIZED DRUG - OTHER] BOTH EYES ×2 (09:17→20:41)
[2023-11-17] MEDS: TEARS BOTH EYES ×2 (09:17→20:41)
[2023-11-17] MEDS: DEXLANSOPRAZOLE 30 MG GT (09:17)
[2023-11-17] MEDS: FLAX GT (09:19)
[2023-11-17] MEDS: BORAGE GT (09:19)
[2023-11-17] MEDS: [UNRECOGNIZED DRUG - OTHER] GT (09:19)
[2023-11-17] MEDS: FISH OIL GT (09:19)
[2023-11-17] MEDS: MULTIVIT-MIN/IRON FUM/FOLIC AC 1 EACH TABLET GT (09:20)
[2023-11-17] MEDS: SENNOSIDES 8.6 MG TABLET GT ×2 (09:20→20:41)
[2023-11-18] VITALS (10 sets, daily range): BP systolic 96–116; BP diastolic 61–67; PULSE 54–73; RESP 16–18; TEMP 36.3–36.5; O2SAT 95–99
[2023-11-18] MEDS: FISH OIL GT (09:00)
[2023-11-18] MEDS: TEARS BOTH EYES ×2 (09:00→21:31)
[2023-11-18] MEDS: DEXLANSOPRAZOLE 30 MG GT (09:00)
[2023-11-18] MEDS: [UNRECOGNIZED DRUG - OTHER] GT (09:00)
[2023-11-18] MEDS: [UNRECOGNIZED DRUG - OTHER] BOTH EYES ×2 (09:00→21:31)
[2023-11-18] MEDS: FLAX GT (09:00)
[2023-11-18] MEDS: BORAGE GT (09:00)
[2023-11-18] MEDS: MULTIVIT-MIN/IRON FUM/FOLIC AC 1 EACH TABLET GT (09:01)
[2023-11-18] MEDS: SENNOSIDES 8.6 MG TABLET GT ×2 (09:02→21:31)
[2023-11-18] MEDS: PROPRANOLOL 10 MG TABLET 20 MG GT ×2 (14:09→21:31)
[2023-11-19] VITALS (10 sets, daily range): BP systolic 97–118; BP diastolic 61–68; PULSE 54–79; RESP 18–21; TEMP 36.1–36.4; O2SAT 96–100
[2023-11-19] MEDS: TEARS BOTH EYES ×2 (08:24→20:25)
[2023-11-19] MEDS: DEXLANSOPRAZOLE 30 MG GT (08:24)
[2023-11-19] MEDS: FISH OIL GT (08:24)
[2023-11-19] MEDS: BORAGE GT (08:24)
[2023-11-19] MEDS: FLAX GT (08:24)
[2023-11-19] MEDS: [UNRECOGNIZED DRUG - OTHER] GT (08:24)
[2023-11-19] MEDS: [UNRECOGNIZED DRUG - OTHER] BOTH EYES ×2 (08:24→20:25)
[2023-11-19] MEDS: MULTIVIT-MIN/IRON FUM/FOLIC AC 1 EACH TABLET GT (08:25)
[2023-11-19] MEDS: SENNOSIDES 8.6 MG TABLET GT ×2 (08:25→20:25)
[2023-11-19] MEDS: MAGNESIUM HYDROXIDE 30 ML ORAL SUSP ML GT (08:27)
[2023-11-19] MEDS: PROPRANOLOL 10 MG TABLET 20 MG GT ×2 (13:53→21:14)
--- NOTE | 2023-11-19 14:43 | PC.SS ---
Resident seen by rating clerk for routine consultation, no new orders or recommendations. Resident to continue current care.
[2023-11-20] VITALS (10 sets, daily range): BP systolic 97–115; BP diastolic 62–69; PULSE 50–71; RESP 18–20; TEMP 36–36.3; O2SAT 95–99
[2023-11-20] MEDS: PROPRANOLOL 10 MG TABLET 20 MG GT ×2 (05:50→22:13)
[2023-11-20] MEDS: BORAGE GT (08:23)
[2023-11-20] MEDS: MULTIVIT-MIN/IRON FUM/FOLIC AC 1 EACH TABLET GT (08:23)
[2023-11-20] MEDS: LOSARTAN 25 MG TABLET GT (08:23)
[2023-11-20] MEDS: FISH OIL GT (08:23)
[2023-11-20] MEDS: [UNRECOGNIZED DRUG - OTHER] GT (08:23)
[2023-11-20] MEDS: TEARS BOTH EYES ×2 (08:23→20:22)
[2023-11-20] MEDS: FLAX GT (08:23)
[2023-11-20] MEDS: [UNRECOGNIZED DRUG - OTHER] BOTH EYES ×2 (08:23→20:22)
[2023-11-20] MEDS: DEXLANSOPRAZOLE 30 MG GT (08:23)
[2023-11-20] MEDS: SENNOSIDES 8.6 MG TABLET GT ×2 (08:23→20:22)
[2023-11-21] VITALS (10 sets, daily range): BP systolic 93–123; BP diastolic 59–73; PULSE 53–86; RESP 18–20; TEMP 36.3–36.4; O2SAT 95–98
[2023-11-21] MEDS: FLAX GT (08:36)
[2023-11-21] MEDS: BORAGE GT (08:36)
[2023-11-21] MEDS: FISH OIL GT (08:36)
[2023-11-21] MEDS: TEARS BOTH EYES ×2 (08:36→20:23)
[2023-11-21] MEDS: DEXLANSOPRAZOLE 30 MG GT (08:36)
[2023-11-21] MEDS: [UNRECOGNIZED DRUG - OTHER] BOTH EYES ×2 (08:36→20:23)
[2023-11-21] MEDS: [UNRECOGNIZED DRUG - OTHER] GT (08:36)
[2023-11-21] MEDS: MULTIVIT-MIN/IRON FUM/FOLIC AC 1 EACH TABLET GT (08:37)
[2023-11-21] MEDS: SENNOSIDES 8.6 MG TABLET GT ×2 (08:38→20:24)
--- NOTE | 2023-11-21 14:05 | PD.SAPROG ---
Progress Note - SubAcute DIAGNOSIS (1) Traumatic brain injury: Status: Chronic (2) Anoxic brain damage, not elsewhere classified: Status: Chronic (3) Tracheostomy status: Status: Chronic (4) Gastrostomy status: Status: Chronic (5) Chronic respiratory failure: Status: Chronic SUBJECTIVE Fever:: none GI:: none Shortness of Breath:: none GI:: no complaints Pain:: none OBJECTIVE Most recent vital signs: Last Vital Signs Temp 97.5 F 11/25/23 17:55 Pulse 60 11/25/23 19:47 Resp 18 11/25/23 19:47 BP 103/66 11/25/23 17:55 Pulse Ox 97 11/25/23 19:47 O2 Del Method Blow-by 11/24/23 12:00 O2 Flow Rate 10 11/25/23 19:47 FiO2 35 11/25/23 19:47 Neurological:: awake Speech:: none Answers questions:: sometimes (Sometimes opens eyes to command.) Respiratory:: lungs clear Cardiovascular: RRR Abdomen: soft and nontender Extremities:: deformities Decubitus:: none Tracheostomy:: to blow by Feeding per:: G tube Complaints:: none ASSESSMENT & PLAN Assessment: Stable status. No improvement in cognitive function. Diagnosis and treatment reviewed. Prognosis poor. Plan: Current treatment continued as ongoing
[2023-11-21] MEDS: PROPRANOLOL 10 MG TABLET 20 MG GT (21:06)
[2023-11-22] VITALS (10 sets, daily range): BP systolic 98–125; BP diastolic 58–68; PULSE 59–78; RESP 17–19; TEMP 36.2–36.4; O2SAT 93–97
[2023-11-22] MEDS: TEARS BOTH EYES ×2 (09:17→20:28)
[2023-11-22] MEDS: [UNRECOGNIZED DRUG - OTHER] BOTH EYES ×2 (09:17→20:28)
[2023-11-22] MEDS: DEXLANSOPRAZOLE 30 MG GT (09:18)
[2023-11-22] MEDS: [UNRECOGNIZED DRUG - OTHER] GT (09:18)
[2023-11-22] MEDS: LOSARTAN 25 MG TABLET GT (09:18)
[2023-11-22] MEDS: BORAGE GT (09:18)
[2023-11-22] MEDS: FLAX GT (09:18)
[2023-11-22] MEDS: FISH OIL GT (09:18)
[2023-11-22] MEDS: SENNOSIDES 8.6 MG TABLET GT ×2 (09:19→20:28)
[2023-11-22] MEDS: MULTIVIT-MIN/IRON FUM/FOLIC AC 1 EACH TABLET GT (09:19)
--- NOTE | 2023-11-22 11:52 | CHAP ---
Patient was visited by the Spiritual Care Volunteer who prayed for them. (Volunteer was in the hospital 10:33-11:52)
--- NOTE | 2023-11-22 13:54 | PC.SS ---
Room visit: Resident is laying in bed with head of the bed elevated with call light properly placed with no signs of of distress. Resident will remain in current care as he has no changes, he remains on blow with GT in place for medication and nutrition. Staff will continue to meet all subacute needs as resident is unable to make needs known and is total care. Resident is not showing any changes in mood or behavior, SSD will continue to make contact and monitor for any changes.
[2023-11-22] MEDS: MAGNESIUM HYDROXIDE 30 ML ORAL SUSP ML GT (20:32)
[2023-11-23] VITALS (10 sets, daily range): BP systolic 95–143; BP diastolic 58–76; PULSE 57–81; RESP 18–20; TEMP 35.9–36.6; O2SAT 94–98
[2023-11-23] MEDS: PROPRANOLOL 10 MG TABLET 20 MG GT ×3 (05:54→22:28)
[2023-11-23] MEDS: TEARS BOTH EYES ×2 (08:25→20:48)
[2023-11-23] MEDS: [UNRECOGNIZED DRUG - OTHER] BOTH EYES ×2 (08:25→20:48)
[2023-11-23] MEDS: [UNRECOGNIZED DRUG - OTHER] GT (08:26)
[2023-11-23] MEDS: BORAGE GT (08:26)
[2023-11-23] MEDS: FLAX GT (08:26)
[2023-11-23] MEDS: FISH OIL GT (08:26)
[2023-11-23] MEDS: DEXLANSOPRAZOLE 30 MG GT (08:26)
[2023-11-23] MEDS: LOSARTAN 25 MG TABLET GT (08:27)
[2023-11-23] MEDS: MULTIVIT-MIN/IRON FUM/FOLIC AC 1 EACH TABLET GT (08:27)
[2023-11-23] MEDS: SENNOSIDES 8.6 MG TABLET GT ×2 (08:28→20:48)
[2023-11-24] VITALS (10 sets, daily range): BP systolic 94–136; BP diastolic 61–75; PULSE 53–70; RESP 17–20; TEMP 36.2–36.4; O2SAT 93–97
[2023-11-24] MEDS: [UNRECOGNIZED DRUG - OTHER] BOTH EYES ×2 (09:01→20:48)
[2023-11-24] MEDS: TEARS BOTH EYES ×2 (09:01→20:48)
[2023-11-24] MEDS: DEXLANSOPRAZOLE 30 MG GT (09:02)
[2023-11-24] MEDS: [UNRECOGNIZED DRUG - OTHER] GT (09:02)
[2023-11-24] MEDS: SENNOSIDES 8.6 MG TABLET GT ×2 (09:02→20:48)
[2023-11-24] MEDS: LOSARTAN 25 MG TABLET GT (09:02)
[2023-11-24] MEDS: BORAGE GT (09:02)
[2023-11-24] MEDS: MULTIVIT-MIN/IRON FUM/FOLIC AC 1 EACH TABLET GT (09:02)
[2023-11-24] MEDS: FISH OIL GT (09:02)
[2023-11-24] MEDS: FLAX GT (09:02)
--- NOTE | 2023-11-24 10:15 | CHAP ---
Patient was visited by the Spiritual Care Volunteer who prayed for them. (Volunteer was in the hospital 09:25-10:15)
[2023-11-24] MEDS: PROPRANOLOL 10 MG TABLET 20 MG GT ×2 (14:00→21:03)
[2023-11-25] VITALS (10 sets, daily range): BP systolic 91–111; BP diastolic 53–71; PULSE 55–76; RESP 16–22; TEMP 36.3–36.5; O2SAT 95–97
[2023-11-25] MEDS: TEARS BOTH EYES ×2 (08:55→20:42)
[2023-11-25] MEDS: [UNRECOGNIZED DRUG - OTHER] BOTH EYES ×2 (08:55→20:42)
[2023-11-25] MEDS: BORAGE GT (08:56)
[2023-11-25] MEDS: FISH OIL GT (08:56)
[2023-11-25] MEDS: DEXLANSOPRAZOLE 30 MG GT (08:56)
[2023-11-25] MEDS: [UNRECOGNIZED DRUG - OTHER] GT (08:56)
[2023-11-25] MEDS: FLAX GT (08:56)
[2023-11-25] MEDS: MULTIVIT-MIN/IRON FUM/FOLIC AC 1 EACH TABLET GT (08:57)
[2023-11-25] MEDS: SENNOSIDES 8.6 MG TABLET GT ×2 (08:58→20:42)
[2023-11-25] MEDS: MAGNESIUM HYDROXIDE 30 ML ORAL SUSP ML GT (20:49)
[2023-11-26] VITALS (10 sets, daily range): BP systolic 101–137; BP diastolic 62–86; PULSE 54–78; RESP 16–21; TEMP 36.2–36.4; O2SAT 95–99
[2023-11-26] MEDS: PROPRANOLOL 10 MG TABLET 20 MG GT ×2 (05:19→21:33)
[2023-11-26] MEDS: [UNRECOGNIZED DRUG - OTHER] BOTH EYES ×2 (09:07→21:37)
[2023-11-26] MEDS: TEARS BOTH EYES ×2 (09:07→21:37)
[2023-11-26] MEDS: DEXLANSOPRAZOLE 30 MG GT (09:07)
[2023-11-26] MEDS: LOSARTAN 25 MG TABLET GT (09:07)
[2023-11-26] MEDS: FISH OIL GT (09:07)
[2023-11-26] MEDS: FLAX GT (09:07)
[2023-11-26] MEDS: BORAGE GT (09:07)
[2023-11-26] MEDS: [UNRECOGNIZED DRUG - OTHER] GT (09:07)
[2023-11-26] MEDS: SENNOSIDES 8.6 MG TABLET GT ×2 (09:08→21:33)
[2023-11-26] MEDS: MULTIVIT-MIN/IRON FUM/FOLIC AC 1 EACH TABLET GT (09:08)
--- NOTE | 2023-11-26 16:11 | PC.NURSE ---
Nurse Aimee reported resident seemed to have facial drooping She reported to Malcom RN. Rn Malcom reported to [employer]. Resident was assessed by both RNs. Noted slightly droopiness to his rt side of face. Later Was taken to resident's room to assess resident. Did not give further orders just to monitor resident for further changes. Will continue to monitor resident.
[2023-11-27] VITALS (9 sets, daily range): BP systolic 101–118; BP diastolic 62–73; PULSE 58–75; RESP 17–21; TEMP 36.2–36.3; O2SAT 94–98
[2023-11-27] MEDS: PROPRANOLOL 10 MG TABLET 20 MG GT ×3 (05:11→21:12)
[2023-11-27] MEDS: TEARS BOTH EYES ×2 (08:21→20:51)
[2023-11-27] MEDS: [UNRECOGNIZED DRUG - OTHER] BOTH EYES ×2 (08:21→20:51)
[2023-11-27] MEDS: DEXLANSOPRAZOLE 30 MG GT (08:21)
[2023-11-27] MEDS: FLAX GT (08:22)
[2023-11-27] MEDS: SENNOSIDES 8.6 MG TABLET GT ×2 (08:22→20:52)
[2023-11-27] MEDS: BORAGE GT (08:22)
[2023-11-27] MEDS: MULTIVIT-MIN/IRON FUM/FOLIC AC 1 EACH TABLET GT (08:22)
[2023-11-27] MEDS: [UNRECOGNIZED DRUG - OTHER] GT (08:22)
[2023-11-27] MEDS: FISH OIL GT (08:22)
[2023-11-27] MEDS: LOSARTAN 25 MG TABLET GT (08:22)
--- NOTE | 2023-11-27 14:54 | CHAP ---
11:15 AM visited by Spiritual Care Volunteer from [facility]. She provided taye to patient.
[2023-11-28] VITALS (11 sets, daily range): BP systolic 92–111; BP diastolic 60–77; PULSE 62–87; RESP 17–20; TEMP 36.1–36.3; O2SAT 95–98
[2023-11-28] MEDS: PROPRANOLOL 10 MG TABLET 20 MG GT (05:21)
[2023-11-28] MEDS: TEARS BOTH EYES ×2 (10:10→21:08)
[2023-11-28] MEDS: DEXLANSOPRAZOLE 30 MG GT (10:10)
[2023-11-28] MEDS: [UNRECOGNIZED DRUG - OTHER] BOTH EYES ×2 (10:10→21:08)
[2023-11-28] MEDS: FLAX GT (10:11)
[2023-11-28] MEDS: BORAGE GT (10:11)
[2023-11-28] MEDS: [UNRECOGNIZED DRUG - OTHER] GT (10:11)
[2023-11-28] MEDS: FISH OIL GT (10:11)
[2023-11-28] MEDS: MULTIVIT-MIN/IRON FUM/FOLIC AC 1 EACH TABLET GT (10:11)
[2023-11-28] MEDS: SENNOSIDES 8.6 MG TABLET GT ×2 (10:12→21:08)
--- NOTE | 2023-11-28 13:48 | PC.SS ---
Room visit: Resident is laying in bed with head of the bed elevated with call light properly placed with no signs of distress. Resident will remain in current care as he has no changes in care or condition. Resident remains on blow by with GT in place with no signs of distress. He is total care unable to make needs known. Staff will continue to provide all subacute care needs. Resident is not ready to DC to lower level of care as he has a heavy care regimen family unable to provide care at home. This SSD will continue to make daily contact with resident and monitor for changes in mood or behavior, SSD will offer emotional support as he may needs.
--- NOTE | 2023-11-28 14:25 | CHAP ---
11:30 AM Visited by spiritual care volunteer Provided prayer for Patient.
[2023-11-29] VITALS (9 sets, daily range): BP systolic 98–122; BP diastolic 67–73; PULSE 62–98; RESP 17–20; TEMP 36.2–36.6; O2SAT 95–99
[2023-11-29] MEDS: PROPRANOLOL 10 MG TABLET 20 MG GT ×2 (05:21→21:26)
[2023-11-29] MEDS: FLAX GT (08:51)
[2023-11-29] MEDS: TEARS BOTH EYES ×2 (08:51→21:27)
[2023-11-29] MEDS: [UNRECOGNIZED DRUG - OTHER] GT (08:51)
[2023-11-29] MEDS: DEXLANSOPRAZOLE 30 MG GT (08:51)
[2023-11-29] MEDS: BORAGE GT (08:51)
[2023-11-29] MEDS: FISH OIL GT (08:51)
[2023-11-29] MEDS: LOSARTAN 25 MG TABLET GT (08:51)
[2023-11-29] MEDS: [UNRECOGNIZED DRUG - OTHER] BOTH EYES ×2 (08:51→21:27)
[2023-11-29] MEDS: MULTIVIT-MIN/IRON FUM/FOLIC AC 1 EACH TABLET GT (08:52)
[2023-11-29] MEDS: SENNOSIDES 8.6 MG TABLET GT ×2 (08:52→21:27)
--- NOTE | 2023-11-29 18:43 | PD.SAPROG ---
Progress Note - SubAcute DIAGNOSIS (1) Traumatic brain injury: Status: Chronic (2) Anoxic brain damage, not elsewhere classified: Status: Chronic (3) Tracheostomy status: Status: Chronic (4) Gastrostomy status: Status: Chronic (5) Chronic respiratory failure: Status: Chronic SUBJECTIVE Fever:: none GI:: none Shortness of Breath:: none GI:: no complaints Pain:: none OBJECTIVE Most recent vital signs: Last Vital Signs Temp 98 F 11/29/23 17:45 Pulse 71 11/29/23 17:45 Resp 18 11/29/23 17:45 BP 104/67 11/29/23 17:45 Pulse Ox 96 11/29/23 17:45 O2 Del Method Blow-by 11/29/23 17:45 O2 Flow Rate 10 11/29/23 09:00 FiO2 35 11/29/23 09:00 Neurological:: awake Speech:: none Answers questions:: sometimes (Sometimes opens eyes to command.) Respiratory:: lungs clear Cardiovascular: RRR Abdomen: soft and nontender Extremities:: deformities Decubitus:: none Tracheostomy:: to blow by Feeding per:: G tube Complaints:: none ASSESSMENT & PLAN Assessment: Stable status. No improvement in cognitive function. Diagnosis and treatment reviewed. Prognosis poor. Plan: Current treatment continued as ongoing
[2023-11-30] VITALS (10 sets, daily range): BP systolic 95–111; BP diastolic 60–71; PULSE 54–80; RESP 18–20; TEMP 36.3–36.5; O2SAT 95–97
[2023-11-30] MEDS: PROPRANOLOL 10 MG TABLET 20 MG GT ×2 (05:08→21:53)
[2023-11-30] MEDS: BORAGE GT (09:33)
[2023-11-30] MEDS: TEARS BOTH EYES ×2 (09:33→21:53)
[2023-11-30] MEDS: DEXLANSOPRAZOLE 30 MG GT (09:33)
[2023-11-30] MEDS: FLAX GT (09:33)
[2023-11-30] MEDS: FISH OIL GT (09:33)
[2023-11-30] MEDS: [UNRECOGNIZED DRUG - OTHER] BOTH EYES ×2 (09:33→21:53)
[2023-11-30] MEDS: [UNRECOGNIZED DRUG - OTHER] GT (09:33)
[2023-11-30] MEDS: MULTIVIT-MIN/IRON FUM/FOLIC AC 1 EACH TABLET GT (09:34)
[2023-11-30] MEDS: SENNOSIDES 8.6 MG TABLET GT ×2 (09:35→21:53)
[2023-12-01] VITALS (10 sets, daily range): BP systolic 96–117; BP diastolic 57–71; PULSE 52–67; RESP 16–18; TEMP 36.3–36.4; O2SAT 97–100
[2023-12-01] MEDS: TEARS BOTH EYES ×2 (08:25→20:48)
[2023-12-01] MEDS: [UNRECOGNIZED DRUG - OTHER] BOTH EYES ×2 (08:25→20:48)
[2023-12-01] MEDS: LOSARTAN 25 MG TABLET GT (08:26)
[2023-12-01] MEDS: BORAGE GT (08:26)
[2023-12-01] MEDS: FLAX GT (08:26)
[2023-12-01] MEDS: [UNRECOGNIZED DRUG - OTHER] GT (08:26)
[2023-12-01] MEDS: FISH OIL GT (08:26)
[2023-12-01] MEDS: DEXLANSOPRAZOLE 30 MG GT (08:26)
[2023-12-01] MEDS: SENNOSIDES 8.6 MG TABLET GT ×2 (08:27→20:48)
[2023-12-01] MEDS: MULTIVIT-MIN/IRON FUM/FOLIC AC 1 EACH TABLET GT (08:27)
[2023-12-01] MEDS: PROPRANOLOL 10 MG TABLET 20 MG GT (14:45)
[2023-12-02] VITALS (12 sets, daily range): BP systolic 90–112; BP diastolic 53–76; PULSE 55–75; RESP 18–22; TEMP 36.1–36.3; O2SAT 97–99
[2023-12-02] MEDS: [UNRECOGNIZED DRUG - OTHER] BOTH EYES ×2 (08:44→21:00)
[2023-12-02] MEDS: TEARS BOTH EYES ×2 (08:44→21:00)
[2023-12-02] MEDS: DEXLANSOPRAZOLE 30 MG GT (08:45)
[2023-12-02] MEDS: FISH OIL GT (08:46)
[2023-12-02] MEDS: BORAGE GT (08:46)
[2023-12-02] MEDS: [UNRECOGNIZED DRUG - OTHER] GT (08:46)
[2023-12-02] MEDS: LOSARTAN 25 MG TABLET GT (08:46)
[2023-12-02] MEDS: FLAX GT (08:46)
[2023-12-02] MEDS: SENNOSIDES 8.6 MG TABLET GT ×2 (08:47→20:54)
[2023-12-02] MEDS: MULTIVIT-MIN/IRON FUM/FOLIC AC 1 EACH TABLET GT (08:47)
[2023-12-02] MEDS: PROPRANOLOL 10 MG TABLET 20 MG GT (14:09)
[2023-12-03] VITALS (9 sets, daily range): BP systolic 95–116; BP diastolic 58–76; PULSE 56–74; RESP 17–18; TEMP 36.2–36.6; O2SAT 97–99
[2023-12-03] MEDS: PROPRANOLOL 10 MG TABLET 20 MG GT ×3 (05:12→21:31)
[2023-12-03] MEDS: TEARS BOTH EYES ×2 (08:54→20:45)
[2023-12-03] MEDS: DEXLANSOPRAZOLE 30 MG GT (08:54)
[2023-12-03] MEDS: [UNRECOGNIZED DRUG - OTHER] GT (08:54)
[2023-12-03] MEDS: BORAGE GT (08:54)
[2023-12-03] MEDS: FISH OIL GT (08:54)
[2023-12-03] MEDS: FLAX GT (08:54)
[2023-12-03] MEDS: [UNRECOGNIZED DRUG - OTHER] BOTH EYES ×2 (08:54→20:45)
[2023-12-03] MEDS: LOSARTAN 25 MG TABLET GT (08:54)
[2023-12-03] MEDS: MULTIVIT-MIN/IRON FUM/FOLIC AC 1 EACH TABLET GT (08:55)
[2023-12-03] MEDS: SENNOSIDES 8.6 MG TABLET GT ×2 (08:55→20:45)
--- NOTE | 2023-12-03 09:25 | CHAP ---
Patient was visited on 12/01/2023 between 0932 and 1115 by a [facility] Spiritual Care Volunteer and received prayer.
[2023-12-03] MEDS: MAGNESIUM HYDROXIDE 30 ML ORAL SUSP ML GT (10:45)
--- NOTE | 2023-12-03 11:01 | CHAP ---
Patient was visited by a [facility] Spiritual Care Volunteer on 11/29/2023 between 1050 and 1203 and received encouragement and prayer.
--- NOTE | 2023-12-03 14:27 | PC.SS ---
This SSD received call from resident daughter Arlene Hinds who is RP for resident. She expressed wanting her father to move closer to home and family. She provided this SSD with facility information near her. This SSD called [facility] who stated they only admit trach vent patients. This SSD will search for placement closer to home and family at appropriate facility. This SSD will keep family updated.
--- NOTE | 2023-12-03 20:11 | PD.SAPROG ---
Progress Note - SubAcute DIAGNOSIS (1) Traumatic brain injury: Status: Chronic (2) Anoxic brain damage, not elsewhere classified: Status: Chronic (3) Tracheostomy status: Status: Chronic (4) Gastrostomy status: Status: Chronic (5) Chronic respiratory failure: Status: Chronic SUBJECTIVE Fever:: none GI:: none Shortness of Breath:: none GI:: no complaints Pain:: none OBJECTIVE Most recent vital signs: Last Vital Signs Temp 97.8 F 12/03/23 17:42 Pulse 59 L 12/03/23 17:42 Resp 17 12/03/23 17:42 BP 116/70 12/03/23 17:42 Pulse Ox 97 12/03/23 12:00 O2 Del Method Blow-by 12/02/23 18:00 O2 Flow Rate 10 12/03/23 06:36 FiO2 35 12/03/23 06:36 Neurological:: awake Speech:: none Answers questions:: sometimes (Sometimes opens eyes to command.) Respiratory:: lungs clear Cardiovascular: RRR Abdomen: soft and nontender Extremities:: deformities Decubitus:: none Tracheostomy:: to blow by Feeding per:: G tube Complaints:: none ASSESSMENT & PLAN Assessment: Stable status. No improvement in cognitive function. Diagnosis and treatment reviewed. Prognosis poor. Plan: Current treatment continued as ongoing
[2023-12-04] VITALS (11 sets, daily range): BP systolic 96–127; BP diastolic 61–76; PULSE 57–76; RESP 18; TEMP 36.1–36.5; O2SAT 95–98
[2023-12-04] MEDS: TEARS BOTH EYES ×2 (08:29→20:51)
[2023-12-04] MEDS: [UNRECOGNIZED DRUG - OTHER] BOTH EYES ×2 (08:29→20:51)
[2023-12-04] MEDS: LOSARTAN 25 MG TABLET GT (08:30)
[2023-12-04] MEDS: SENNOSIDES 8.6 MG TABLET GT ×2 (08:30→20:51)
[2023-12-04] MEDS: [UNRECOGNIZED DRUG - OTHER] GT (08:30)
[2023-12-04] MEDS: BORAGE GT (08:30)
[2023-12-04] MEDS: MULTIVIT-MIN/IRON FUM/FOLIC AC 1 EACH TABLET GT (08:30)
[2023-12-04] MEDS: DEXLANSOPRAZOLE 30 MG GT (08:30)
[2023-12-04] MEDS: FLAX GT (08:30)
[2023-12-04] MEDS: FISH OIL GT (08:30)
[2023-12-04] MEDS: PROPRANOLOL 10 MG TABLET 20 MG GT ×2 (14:13→21:52)
[2023-12-05] VITALS (10 sets, daily range): BP systolic 91–122; BP diastolic 57–69; PULSE 52–70; RESP 17–20; TEMP 36.1–36.4; O2SAT 95–98
[2023-12-05] MEDS: PROPRANOLOL 10 MG TABLET 20 MG GT (05:22)
[2023-12-05] MEDS: [UNRECOGNIZED DRUG - OTHER] GT (08:48)
[2023-12-05] MEDS: SENNOSIDES 8.6 MG TABLET GT ×2 (08:48→21:39)
[2023-12-05] MEDS: FISH OIL GT (08:48)
[2023-12-05] MEDS: BORAGE GT (08:48)
[2023-12-05] MEDS: FLAX GT (08:48)
[2023-12-05] MEDS: DEXLANSOPRAZOLE 30 MG GT (08:48)
[2023-12-05] MEDS: [UNRECOGNIZED DRUG - OTHER] BOTH EYES ×2 (08:48→21:39)
[2023-12-05] MEDS: MULTIVIT-MIN/IRON FUM/FOLIC AC 1 EACH TABLET GT (08:48)
[2023-12-05] MEDS: TEARS BOTH EYES ×2 (08:48→21:39)
--- NOTE | 2023-12-05 11:36 | PC.IP ---
IP Note: Resident's RP has refused all vaccines for administration, to include COVID, Influenza and Pneumococcal.
[2023-12-06] VITALS (10 sets, daily range): BP systolic 99–131; BP diastolic 59–73; PULSE 50–80; RESP 18–19; TEMP 36.1–36.4; O2SAT 96–97
[2023-12-06] MEDS: PROPRANOLOL 10 MG TABLET 20 MG GT (05:21)
[2023-12-06] MEDS: FISH OIL GT (09:03)
[2023-12-06] MEDS: [UNRECOGNIZED DRUG - OTHER] GT (09:03)
[2023-12-06] MEDS: MULTIVIT-MIN/IRON FUM/FOLIC AC 1 EACH TABLET GT (09:03)
[2023-12-06] MEDS: DEXLANSOPRAZOLE 30 MG GT (09:03)
[2023-12-06] MEDS: FLAX GT (09:03)
[2023-12-06] MEDS: [UNRECOGNIZED DRUG - OTHER] BOTH EYES ×2 (09:03→20:17)
[2023-12-06] MEDS: BORAGE GT (09:03)
[2023-12-06] MEDS: TEARS BOTH EYES ×2 (09:03→20:17)
[2023-12-06] MEDS: SENNOSIDES 8.6 MG TABLET GT ×2 (09:04→20:17)
--- NOTE | 2023-12-06 11:35 | CHAP ---
Patient was visited by the Spiritual Care Volunteer who prayed for them. (Volunteer was in the hospital from 09:58-11:35).
[2023-12-06] MEDS: MAGNESIUM HYDROXIDE 30 ML ORAL SUSP ML GT (21:16)
[2023-12-07] VITALS (9 sets, daily range): BP systolic 99–115; BP diastolic 61–73; PULSE 55–63; RESP 17–20; TEMP 36.3–36.5; O2SAT 94–99
[2023-12-07] MEDS: PROPRANOLOL 10 MG TABLET 20 MG GT ×2 (05:02→21:17)
[2023-12-07] MEDS: [UNRECOGNIZED DRUG - OTHER] GT (09:26)
[2023-12-07] MEDS: BORAGE GT (09:26)
[2023-12-07] MEDS: DEXLANSOPRAZOLE 30 MG GT (09:26)
[2023-12-07] MEDS: FLAX GT (09:26)
[2023-12-07] MEDS: TEARS BOTH EYES ×2 (09:26→20:42)
[2023-12-07] MEDS: [UNRECOGNIZED DRUG - OTHER] BOTH EYES ×2 (09:26→20:42)
[2023-12-07] MEDS: FISH OIL GT (09:26)
[2023-12-07] MEDS: SENNOSIDES 8.6 MG TABLET GT ×2 (09:27→20:43)
[2023-12-07] MEDS: MULTIVIT-MIN/IRON FUM/FOLIC AC 1 EACH TABLET GT (09:27)
--- NOTE | 2023-12-07 17:07 | PD.SAPROG ---
Progress Note - SubAcute DIAGNOSIS (1) Traumatic brain injury: Status: Chronic (2) Anoxic brain damage, not elsewhere classified: Status: Chronic (3) Tracheostomy status: Status: Chronic (4) Gastrostomy status: Status: Chronic (5) Chronic respiratory failure: Status: Chronic SUBJECTIVE Fever:: none GI:: none Shortness of Breath:: none GI:: no complaints Pain:: none OBJECTIVE Most recent vital signs: Last Vital Signs Temp 97.4 F 12/07/23 11:49 Pulse 57 L 12/07/23 13:58 Resp 18 12/07/23 11:49 BP 102/66 12/07/23 13:58 Pulse Ox 94 L 12/07/23 07:08 O2 Del Method Blow-by 12/06/23 23:43 O2 Flow Rate 10 12/07/23 07:08 FiO2 35 12/07/23 07:08 Neurological:: awake Speech:: none Answers questions:: sometimes (Sometimes opens eyes to command.) Respiratory:: lungs clear Cardiovascular: RRR Abdomen: soft and nontender Extremities:: deformities Decubitus:: none Tracheostomy:: to blow by Feeding per:: G tube Complaints:: none ASSESSMENT & PLAN Assessment: Stable status. No improvement in cognitive function. Diagnosis and treatment reviewed. Prognosis poor. Plan: Current treatment continued as ongoing
[2023-12-08] VITALS (10 sets, daily range): BP systolic 97–114; BP diastolic 62–76; PULSE 56–81; RESP 16–20; TEMP 36.1–36.7; O2SAT 97–99
[2023-12-08] MEDS: PROPRANOLOL 10 MG TABLET 20 MG GT ×3 (05:09→21:21)
[2023-12-08] MEDS: DEXLANSOPRAZOLE 30 MG GT (09:00)
[2023-12-08] MEDS: SENNOSIDES 8.6 MG TABLET GT ×2 (09:00→20:45)
[2023-12-08] MEDS: FLAX GT (09:00)
[2023-12-08] MEDS: FISH OIL GT (09:00)
[2023-12-08] MEDS: [UNRECOGNIZED DRUG - OTHER] BOTH EYES ×2 (09:00→20:45)
[2023-12-08] MEDS: [UNRECOGNIZED DRUG - OTHER] GT (09:00)
[2023-12-08] MEDS: MULTIVIT-MIN/IRON FUM/FOLIC AC 1 EACH TABLET GT (09:00)
[2023-12-08] MEDS: BORAGE GT (09:00)
[2023-12-08] MEDS: TEARS BOTH EYES ×2 (09:00→20:45)
[2023-12-09] VITALS (10 sets, daily range): BP systolic 99–133; BP diastolic 53–73; PULSE 53–71; RESP 18–20; TEMP 36.1–36.6; O2SAT 94–97
[2023-12-09] MEDS: TEARS BOTH EYES ×2 (08:52→20:46)
[2023-12-09] MEDS: DEXLANSOPRAZOLE 30 MG GT (08:52)
[2023-12-09] MEDS: BORAGE GT (08:52)
[2023-12-09] MEDS: [UNRECOGNIZED DRUG - OTHER] BOTH EYES ×2 (08:52→20:46)
[2023-12-09] MEDS: FISH OIL GT (08:52)
[2023-12-09] MEDS: [UNRECOGNIZED DRUG - OTHER] GT (08:52)
[2023-12-09] MEDS: FLAX GT (08:52)
[2023-12-09] MEDS: MULTIVIT-MIN/IRON FUM/FOLIC AC 1 EACH TABLET GT (08:53)
[2023-12-09] MEDS: SENNOSIDES 8.6 MG TABLET GT ×2 (08:54→20:46)
[2023-12-09] MEDS: PROPRANOLOL 10 MG TABLET 20 MG GT ×2 (14:15→21:01)
[2023-12-09] MEDS: MAGNESIUM HYDROXIDE 30 ML ORAL SUSP ML GT (21:38)
[2023-12-10] VITALS (11 sets, daily range): BP systolic 92–122; BP diastolic 59–76; PULSE 53–70; RESP 18–20; TEMP 35.9–36.4; O2SAT 97–98
[2023-12-10] MEDS: PROPRANOLOL 10 MG TABLET 20 MG GT ×3 (05:29→21:13)
[2023-12-10] MEDS: [UNRECOGNIZED DRUG - OTHER] BOTH EYES ×2 (09:15→20:51)
[2023-12-10] MEDS: FLAX GT (09:15)
[2023-12-10] MEDS: TEARS BOTH EYES ×2 (09:15→20:51)
[2023-12-10] MEDS: SENNOSIDES 8.6 MG TABLET GT ×2 (09:15→20:51)
[2023-12-10] MEDS: BORAGE GT (09:15)
[2023-12-10] MEDS: MULTIVIT-MIN/IRON FUM/FOLIC AC 1 EACH TABLET GT (09:15)
[2023-12-10] MEDS: [UNRECOGNIZED DRUG - OTHER] GT (09:15)
[2023-12-10] MEDS: FISH OIL GT (09:15)
[2023-12-10] MEDS: DEXLANSOPRAZOLE 30 MG GT (09:15)
[2023-12-10] MEDS: ACETAMINOPHEN 325 MG TABLET 650 MG GT (20:50)
[2023-12-11] VITALS (10 sets, daily range): BP systolic 96–112; BP diastolic 56–72; PULSE 52–67; RESP 18–20; TEMP 36–36.3; O2SAT 96–100
[2023-12-11] MEDS: PROPRANOLOL 10 MG TABLET 20 MG GT (05:08)
[2023-12-11] MEDS: [UNRECOGNIZED DRUG - OTHER] BOTH EYES ×2 (08:41→20:16)
[2023-12-11] MEDS: TEARS BOTH EYES ×2 (08:41→20:16)
[2023-12-11] MEDS: BORAGE GT (08:41)
[2023-12-11] MEDS: FISH OIL GT (08:41)
[2023-12-11] MEDS: [UNRECOGNIZED DRUG - OTHER] GT (08:41)
[2023-12-11] MEDS: DEXLANSOPRAZOLE 30 MG GT (08:41)
[2023-12-11] MEDS: FLAX GT (08:41)
[2023-12-11] MEDS: LOSARTAN 25 MG TABLET GT (08:41)
[2023-12-11] MEDS: SENNOSIDES 8.6 MG TABLET GT ×2 (08:42→20:16)
[2023-12-11] MEDS: MULTIVIT-MIN/IRON FUM/FOLIC AC 1 EACH TABLET GT (08:42)
--- NOTE | 2023-12-11 15:42 | PC.CWCCOMPLE ---
Slurry Blender Pharmacist monthly MRR
--- NOTE | 2023-12-11 23:22 | PD.SAPROG ---
Progress Note - SubAcute DIAGNOSIS (1) Traumatic brain injury: Status: Chronic (2) Anoxic brain damage, not elsewhere classified: Status: Chronic (3) Tracheostomy status: Status: Chronic (4) Gastrostomy status: Status: Chronic (5) Chronic respiratory failure: Status: Chronic SUBJECTIVE Fever:: none GI:: none Shortness of Breath:: none GI:: no complaints Pain:: none OBJECTIVE Most recent vital signs: Last Vital Signs Temp 97.2 F 12/11/23 18:00 Pulse 59 L 12/11/23 21:35 Resp 18 12/11/23 18:00 BP 107/65 12/11/23 21:35 Pulse Ox 100 12/11/23 18:00 O2 Del Method Blow-by 12/11/23 05:23 O2 Flow Rate 10 12/11/23 07:09 FiO2 35 12/11/23 07:09 Neurological:: awake Speech:: none Answers questions:: sometimes (Sometimes opens eyes to command.) Respiratory:: lungs clear Cardiovascular: RRR Abdomen: soft and nontender Extremities:: deformities Decubitus:: none Tracheostomy:: to blow by Feeding per:: G tube Complaints:: none ASSESSMENT & PLAN Assessment: Stable status. No improvement in cognitive function. Diagnosis and treatment reviewed. Prognosis poor. Plan: Current treatment continued as ongoing
[2023-12-12] VITALS (9 sets, daily range): BP systolic 93–110; BP diastolic 58–77; PULSE 55–86; RESP 17–18; TEMP 35.8–36.3; O2SAT 97–99
[2023-12-12] MEDS: PROPRANOLOL 10 MG TABLET 20 MG GT ×2 (05:03→14:11)
[2023-12-12] MEDS: TEARS BOTH EYES ×2 (09:16→20:22)
[2023-12-12] MEDS: [UNRECOGNIZED DRUG - OTHER] BOTH EYES ×2 (09:16→20:22)
[2023-12-12] MEDS: DEXLANSOPRAZOLE 30 MG GT (09:17)
[2023-12-12] MEDS: BORAGE GT (09:20)
[2023-12-12] MEDS: FLAX GT (09:20)
[2023-12-12] MEDS: FISH OIL GT (09:20)
[2023-12-12] MEDS: [UNRECOGNIZED DRUG - OTHER] GT (09:20)
[2023-12-12] MEDS: MULTIVIT-MIN/IRON FUM/FOLIC AC 1 EACH TABLET GT (09:21)
[2023-12-12] MEDS: SENNOSIDES 8.6 MG TABLET GT ×2 (09:22→20:22)
--- NOTE | 2023-12-12 15:18 | CHAP ---
11:00 AM Visited by spiritual care volunteer Provided prayer for Patient.
[2023-12-13] VITALS (11 sets, daily range): BP systolic 90–137; BP diastolic 58–84; PULSE 62–90; RESP 17–20; TEMP 36.3–36.6; O2SAT 95–99
[2023-12-13] MEDS: PROPRANOLOL 10 MG TABLET 20 MG GT ×3 (05:07→21:04)
[2023-12-13] MEDS: FISH OIL GT (08:32)
[2023-12-13] MEDS: DEXLANSOPRAZOLE 30 MG GT (08:32)
[2023-12-13] MEDS: LOSARTAN 25 MG TABLET GT (08:32)
[2023-12-13] MEDS: [UNRECOGNIZED DRUG - OTHER] BOTH EYES ×2 (08:32→20:56)
[2023-12-13] MEDS: BORAGE GT (08:32)
[2023-12-13] MEDS: FLAX GT (08:32)
[2023-12-13] MEDS: [UNRECOGNIZED DRUG - OTHER] GT (08:32)
[2023-12-13] MEDS: TEARS BOTH EYES ×2 (08:32→20:56)
[2023-12-13] MEDS: SENNOSIDES 8.6 MG TABLET GT ×2 (08:33→20:56)
[2023-12-13] MEDS: MULTIVIT-MIN/IRON FUM/FOLIC AC 1 EACH TABLET GT (08:33)
--- NOTE | 2023-12-13 13:58 | PC.NURSE ---
Seen by Dr Ham, no new order made
[2023-12-14] VITALS (10 sets, daily range): BP systolic 95–121; BP diastolic 63–81; PULSE 55–69; RESP 18–20; TEMP 36.1–36.6; O2SAT 95–98
[2023-12-14] MEDS: PROPRANOLOL 10 MG TABLET 20 MG GT ×2 (05:24→14:28)
[2023-12-14] MEDS: [UNRECOGNIZED DRUG - OTHER] BOTH EYES ×2 (08:28→21:17)
[2023-12-14] MEDS: TEARS BOTH EYES ×2 (08:28→21:17)
[2023-12-14] MEDS: [UNRECOGNIZED DRUG - OTHER] GT (08:29)
[2023-12-14] MEDS: FISH OIL GT (08:29)
[2023-12-14] MEDS: DEXLANSOPRAZOLE 30 MG GT (08:29)
[2023-12-14] MEDS: BORAGE GT (08:29)
[2023-12-14] MEDS: FLAX GT (08:29)
[2023-12-14] MEDS: MULTIVIT-MIN/IRON FUM/FOLIC AC 1 EACH TABLET GT (08:30)
[2023-12-14] MEDS: MAGNESIUM HYDROXIDE 30 ML ORAL SUSP ML GT (08:31)
[2023-12-14] MEDS: SENNOSIDES 8.6 MG TABLET GT ×2 (08:31→21:19)
[2023-12-15] VITALS (10 sets, daily range): BP systolic 111–149; BP diastolic 68–96; PULSE 56–78; RESP 18–22; TEMP 36.1–36.4; O2SAT 97–98
[2023-12-15] MEDS: PROPRANOLOL 10 MG TABLET 20 MG GT ×2 (06:19→21:07)
[2023-12-15] MEDS: TEARS BOTH EYES ×2 (08:53→21:07)
[2023-12-15] MEDS: [UNRECOGNIZED DRUG - OTHER] BOTH EYES ×2 (08:53→21:07)
[2023-12-15] MEDS: BORAGE GT (08:54)
[2023-12-15] MEDS: FLAX GT (08:54)
[2023-12-15] MEDS: FISH OIL GT (08:54)
[2023-12-15] MEDS: MULTIVIT-MIN/IRON FUM/FOLIC AC 1 EACH TABLET GT (08:54)
[2023-12-15] MEDS: DEXLANSOPRAZOLE 30 MG GT (08:54)
[2023-12-15] MEDS: SENNOSIDES 8.6 MG TABLET GT ×2 (08:54→21:07)
[2023-12-15] MEDS: [UNRECOGNIZED DRUG - OTHER] GT (08:54)
[2023-12-15] MEDS: LOSARTAN 25 MG TABLET GT (08:54)
[2023-12-16] VITALS (10 sets, daily range): BP systolic 104–117; BP diastolic 61–77; PULSE 54–71; RESP 17–20; TEMP 36.2–36.4; O2SAT 96–100
[2023-12-16] MEDS: PROPRANOLOL 10 MG TABLET 20 MG GT ×3 (05:09→21:04)
[2023-12-16] MEDS: FISH OIL GT (08:31)
[2023-12-16] MEDS: FLAX GT (08:31)
[2023-12-16] MEDS: TEARS BOTH EYES ×2 (08:31→21:04)
[2023-12-16] MEDS: BORAGE GT (08:31)
[2023-12-16] MEDS: [UNRECOGNIZED DRUG - OTHER] BOTH EYES ×2 (08:31→21:04)
[2023-12-16] MEDS: DEXLANSOPRAZOLE 30 MG GT (08:31)
[2023-12-16] MEDS: [UNRECOGNIZED DRUG - OTHER] GT (08:31)
[2023-12-16] MEDS: MULTIVIT-MIN/IRON FUM/FOLIC AC 1 EACH TABLET GT (08:32)
[2023-12-16] MEDS: LOSARTAN 25 MG TABLET GT (08:32)
[2023-12-16] MEDS: SENNOSIDES 8.6 MG TABLET GT ×2 (08:33→21:03)
--- NOTE | 2023-12-16 22:09 | PD.SAPROG ---
Progress Note - SubAcute DIAGNOSIS (1) Traumatic brain injury: Status: Chronic (2) Anoxic brain damage, not elsewhere classified: Status: Chronic (3) Tracheostomy status: Status: Chronic (4) Gastrostomy status: Status: Chronic (5) Chronic respiratory failure: Status: Chronic SUBJECTIVE Fever:: none GI:: none Shortness of Breath:: none GI:: no complaints Pain:: none OBJECTIVE Most recent vital signs: Last Vital Signs Temp 97.1 F 12/16/23 17:13 Pulse 65 12/16/23 21:04 Resp 20 12/16/23 19:20 BP 117/77 12/16/23 21:04 Pulse Ox 97 12/16/23 19:20 O2 Del Method Blow-by 12/13/23 05:43 O2 Flow Rate 8 12/16/23 19:20 FiO2 35 12/16/23 19:20 Neurological:: awake Speech:: none Answers questions:: sometimes (Sometimes opens eyes to command.) Respiratory:: lungs clear Cardiovascular: RRR Abdomen: soft and nontender Extremities:: deformities Decubitus:: none Tracheostomy:: to blow by Feeding per:: G tube Complaints:: none ASSESSMENT & PLAN Assessment: Stable status. No improvement in cognitive function. Diagnosis and treatment reviewed. Prognosis poor. Plan: Current treatment continued as ongoing
[2023-12-17] VITALS (12 sets, daily range): BP systolic 96–152; BP diastolic 59–81; PULSE 59–100; RESP 18–20; TEMP 36.3–36.7; O2SAT 97–100
[2023-12-17] MEDS: PROPRANOLOL 10 MG TABLET 20 MG GT ×3 (05:21→21:00)
[2023-12-17] MEDS: BORAGE GT (09:39)
[2023-12-17] MEDS: FLAX GT (09:39)
[2023-12-17] MEDS: TEARS BOTH EYES ×2 (09:39→20:53)
[2023-12-17] MEDS: [UNRECOGNIZED DRUG - OTHER] BOTH EYES ×2 (09:39→20:53)
[2023-12-17] MEDS: FISH OIL GT (09:39)
[2023-12-17] MEDS: [UNRECOGNIZED DRUG - OTHER] GT (09:39)
[2023-12-17] MEDS: DEXLANSOPRAZOLE 30 MG GT (09:39)
[2023-12-17] MEDS: SENNOSIDES 8.6 MG TABLET GT ×2 (09:41→20:53)
[2023-12-17] MEDS: MULTIVIT-MIN/IRON FUM/FOLIC AC 1 EACH TABLET GT (09:41)
[2023-12-18] VITALS (9 sets, daily range): BP systolic 100–121; BP diastolic 50–71; PULSE 54–99; RESP 18–20; TEMP 36.1–36.4; O2SAT 94–96
[2023-12-18] MEDS: PROPRANOLOL 10 MG TABLET 20 MG GT ×2 (05:29→21:29)
[2023-12-18] MEDS: [UNRECOGNIZED DRUG - OTHER] BOTH EYES ×2 (08:24→20:49)
[2023-12-18] MEDS: TEARS BOTH EYES ×2 (08:24→20:49)
[2023-12-18] MEDS: FLAX GT (08:25)
[2023-12-18] MEDS: FISH OIL GT (08:25)
[2023-12-18] MEDS: BORAGE GT (08:25)
[2023-12-18] MEDS: [UNRECOGNIZED DRUG - OTHER] GT (08:25)
[2023-12-18] MEDS: DEXLANSOPRAZOLE 30 MG GT (08:25)
[2023-12-18] MEDS: MULTIVIT-MIN/IRON FUM/FOLIC AC 1 EACH TABLET GT (08:26)
[2023-12-18] MEDS: SENNOSIDES 8.6 MG TABLET GT ×2 (08:27→20:49)
[2023-12-19] VITALS (10 sets, daily range): BP systolic 99–122; BP diastolic 62–74; PULSE 57–73; RESP 18–20; TEMP 36.3–36.5; O2SAT 96–100
[2023-12-19] MEDS: PROPRANOLOL 10 MG TABLET 20 MG GT ×3 (05:15→21:36)
[2023-12-19] MEDS: FISH OIL GT (09:44)
[2023-12-19] MEDS: [UNRECOGNIZED DRUG - OTHER] BOTH EYES ×2 (09:44→20:57)
[2023-12-19] MEDS: TEARS BOTH EYES ×2 (09:44→20:57)
[2023-12-19] MEDS: DEXLANSOPRAZOLE 30 MG GT (09:44)
[2023-12-19] MEDS: [UNRECOGNIZED DRUG - OTHER] GT (09:44)
[2023-12-19] MEDS: BORAGE GT (09:44)
[2023-12-19] MEDS: FLAX GT (09:44)
[2023-12-19] MEDS: MULTIVIT-MIN/IRON FUM/FOLIC AC 1 EACH TABLET GT (09:45)
[2023-12-19] MEDS: SENNOSIDES 8.6 MG TABLET GT ×2 (09:46→20:57)
[2023-12-20] VITALS (9 sets, daily range): BP systolic 106–138; BP diastolic 60–82; PULSE 52–98; RESP 16–18; TEMP 36.1–36.5; O2SAT 94–98
[2023-12-20] MEDS: PROPRANOLOL 10 MG TABLET 20 MG GT ×3 (05:06→21:24)
[2023-12-20] MEDS: TEARS BOTH EYES ×2 (08:11→20:35)
[2023-12-20] MEDS: [UNRECOGNIZED DRUG - OTHER] BOTH EYES ×2 (08:11→20:35)
[2023-12-20] MEDS: DEXLANSOPRAZOLE 30 MG GT (08:12)
[2023-12-20] MEDS: SENNOSIDES 8.6 MG TABLET GT ×2 (08:12→20:35)
[2023-12-20] MEDS: BORAGE GT (08:12)
[2023-12-20] MEDS: FISH OIL GT (08:12)
[2023-12-20] MEDS: MULTIVIT-MIN/IRON FUM/FOLIC AC 1 EACH TABLET GT (08:12)
[2023-12-20] MEDS: [UNRECOGNIZED DRUG - OTHER] GT (08:12)
[2023-12-20] MEDS: FLAX GT (08:12)
--- NOTE | 2023-12-20 11:28 | CHAP ---
Patient was visited by the Spiritual Care Volunteer who prayed for them. (Volunteer was in the hospital from 10:02-11:28).
[2023-12-20] MEDS: SODIUM PHOSPHATE,MONO-DIBASIC 133 ML ENEMA PR (13:56)
--- NOTE | 2023-12-20 15:34 | PC.SS ---
Room visit: Resident is laying in bed with head of the bed elevated with call light properly placed with no signs of distress. Resident is well groomed, with call light in place. Resident will remain in current care as there are no changes in care or condition, staff to continue to meet all subacute care needs. Resident remains on blow by with trach in place and GT for nutrition and medications. SSD to make daily contact with resident and monitor for any changes in mood or behavior.
--- NOTE | 2023-12-20 23:02 | PD.SAPROG ---
Progress Note - SubAcute DIAGNOSIS (1) Traumatic brain injury: Status: Chronic (2) Anoxic brain damage, not elsewhere classified: Status: Chronic (3) Tracheostomy status: Status: Chronic (4) Gastrostomy status: Status: Chronic (5) Chronic respiratory failure: Status: Chronic SUBJECTIVE Fever:: none GI:: none Shortness of Breath:: none GI:: no complaints Pain:: none OBJECTIVE Most recent vital signs: Last Vital Signs Temp 97.4 F 12/20/23 18:00 Pulse 67 12/20/23 21:24 Resp 16 12/20/23 18:00 BP 124/73 12/20/23 21:24 Pulse Ox 97 12/20/23 18:00 O2 Del Method Blow-by 12/20/23 05:49 O2 Flow Rate 9 12/20/23 06:20 FiO2 35 12/20/23 06:20 Neurological:: awake Speech:: none Answers questions:: sometimes (Sometimes opens eyes to command.) Respiratory:: lungs clear Cardiovascular: RRR Abdomen: soft and nontender Extremities:: deformities Decubitus:: none Tracheostomy:: to blow by Feeding per:: G tube Complaints:: none ASSESSMENT & PLAN Assessment: Stable status. No improvement in cognitive function. Diagnosis and treatment reviewed. Prognosis poor. Plan: Current treatment continued as ongoing
[2023-12-21] VITALS (11 sets, daily range): BP systolic 105–125; BP diastolic 64–78; PULSE 61–79; RESP 16–20; TEMP 36.3–36.7; O2SAT 89–97
[2023-12-21] MEDS: PROPRANOLOL 10 MG TABLET 20 MG GT ×3 (05:10→21:27)
[2023-12-21] MEDS: [UNRECOGNIZED DRUG - OTHER] BOTH EYES ×2 (08:57→20:31)
[2023-12-21] MEDS: TEARS BOTH EYES ×2 (08:57→20:31)
[2023-12-21] MEDS: DEXLANSOPRAZOLE 30 MG GT (08:58)
[2023-12-21] MEDS: FLAX GT (08:58)
[2023-12-21] MEDS: LOSARTAN 25 MG TABLET GT (08:58)
[2023-12-21] MEDS: BORAGE GT (08:58)
[2023-12-21] MEDS: [UNRECOGNIZED DRUG - OTHER] GT (08:58)
[2023-12-21] MEDS: FISH OIL GT (08:58)
[2023-12-21] MEDS: SENNOSIDES 8.6 MG TABLET GT ×2 (08:59→20:31)
[2023-12-21] MEDS: MULTIVIT-MIN/IRON FUM/FOLIC AC 1 EACH TABLET GT (08:59)
[2023-12-22] VITALS (12 sets, daily range): BP systolic 95–131; BP diastolic 54–81; PULSE 54–73; RESP 18–21; TEMP 36.1–36.3; O2SAT 94–99
[2023-12-22] MEDS: FISH OIL GT (08:25)
[2023-12-22] MEDS: TEARS BOTH EYES ×2 (08:25→20:57)
[2023-12-22] MEDS: [UNRECOGNIZED DRUG - OTHER] BOTH EYES ×2 (08:25→20:57)
[2023-12-22] MEDS: FLAX GT (08:25)
[2023-12-22] MEDS: BORAGE GT (08:25)
[2023-12-22] MEDS: [UNRECOGNIZED DRUG - OTHER] GT (08:25)
[2023-12-22] MEDS: DEXLANSOPRAZOLE 30 MG GT (08:25)
[2023-12-22] MEDS: MULTIVIT-MIN/IRON FUM/FOLIC AC 1 EACH TABLET GT (08:35)
[2023-12-22] MEDS: SENNOSIDES 8.6 MG TABLET GT ×2 (08:35→20:58)
[2023-12-22] MEDS: LOSARTAN 25 MG TABLET GT (08:35)
[2023-12-22] MEDS: PROPRANOLOL 10 MG TABLET 20 MG GT ×2 (14:00→21:00)
[2023-12-23] VITALS (11 sets, daily range): BP systolic 91–138; BP diastolic 60–78; PULSE 56–96; RESP 16–18; TEMP 36–36.6; O2SAT 96–99
[2023-12-23] MEDS: MAGNESIUM HYDROXIDE 30 ML ORAL SUSP ML GT (06:10)
[2023-12-23] MEDS: TEARS BOTH EYES ×2 (08:07→20:36)
[2023-12-23] MEDS: BORAGE GT (08:07)
[2023-12-23] MEDS: [UNRECOGNIZED DRUG - OTHER] GT (08:07)
[2023-12-23] MEDS: FLAX GT (08:07)
[2023-12-23] MEDS: DEXLANSOPRAZOLE 30 MG GT (08:07)
[2023-12-23] MEDS: FISH OIL GT (08:07)
[2023-12-23] MEDS: [UNRECOGNIZED DRUG - OTHER] BOTH EYES ×2 (08:07→20:36)
[2023-12-23] MEDS: LOSARTAN 25 MG TABLET GT (08:08)
[2023-12-23] MEDS: MULTIVIT-MIN/IRON FUM/FOLIC AC 1 EACH TABLET GT (08:08)
[2023-12-23] MEDS: SENNOSIDES 8.6 MG TABLET GT ×2 (08:09→20:37)
[2023-12-23] MEDS: PROPRANOLOL 10 MG TABLET 20 MG GT (21:21)
[2023-12-24] VITALS (10 sets, daily range): BP systolic 98–119; BP diastolic 63–74; PULSE 58–88; RESP 16–18; TEMP 36.2–36.7; O2SAT 97–98
[2023-12-24] MEDS: [UNRECOGNIZED DRUG - OTHER] BOTH EYES ×2 (08:46→21:00)
[2023-12-24] MEDS: TEARS BOTH EYES ×2 (08:46→21:00)
[2023-12-24] MEDS: DEXLANSOPRAZOLE 30 MG GT (08:46)
[2023-12-24] MEDS: FLAX GT (08:47)
[2023-12-24] MEDS: LOSARTAN 25 MG TABLET GT (08:47)
[2023-12-24] MEDS: BORAGE GT (08:47)
[2023-12-24] MEDS: [UNRECOGNIZED DRUG - OTHER] GT (08:47)
[2023-12-24] MEDS: FISH OIL GT (08:47)
[2023-12-24] MEDS: SENNOSIDES 8.6 MG TABLET GT ×2 (08:48→21:01)
[2023-12-24] MEDS: MULTIVIT-MIN/IRON FUM/FOLIC AC 1 EACH TABLET GT (08:48)
[2023-12-24] MEDS: PROPRANOLOL 10 MG TABLET 20 MG GT ×2 (14:00→21:01)
--- NOTE | 2023-12-24 22:51 | PD.SAPROG ---
Progress Note - SubAcute DIAGNOSIS (1) Traumatic brain injury: Status: Chronic (2) Anoxic brain damage, not elsewhere classified: Status: Chronic (3) Tracheostomy status: Status: Chronic (4) Gastrostomy status: Status: Chronic (5) Chronic respiratory failure: Status: Chronic SUBJECTIVE Fever:: none GI:: none Shortness of Breath:: none GI:: no complaints Pain:: none OBJECTIVE Most recent vital signs: Last Vital Signs Temp 97.5 F 12/24/23 17:46 Pulse 71 12/24/23 21:01 Resp 18 12/24/23 18:20 BP 110/71 12/24/23 21:01 Pulse Ox 98 12/24/23 18:20 O2 Del Method Blow-by 12/20/23 05:49 O2 Flow Rate 10 12/24/23 18:20 FiO2 35 12/24/23 18:20 Neurological:: awake Speech:: none Answers questions:: sometimes (Sometimes opens eyes to command.) Respiratory:: lungs clear Cardiovascular: RRR Abdomen: soft and nontender Extremities:: deformities Decubitus:: none Tracheostomy:: to blow by Feeding per:: G tube Complaints:: none ASSESSMENT & PLAN Assessment: Stable status. No improvement in cognitive function. Diagnosis and treatment reviewed. Prognosis poor. Plan: Current treatment continued as ongoing
[2023-12-25] VITALS (10 sets, daily range): BP systolic 97–132; BP diastolic 62–83; PULSE 52–69; RESP 18–20; TEMP 36.1–36.4; O2SAT 97–99
[2023-12-25] MEDS: PROPRANOLOL 10 MG TABLET 20 MG GT ×3 (05:08→21:19)
[2023-12-25] MEDS: FLAX GT (08:54)
[2023-12-25] MEDS: BORAGE GT (08:54)
[2023-12-25] MEDS: [UNRECOGNIZED DRUG - OTHER] GT (08:54)
[2023-12-25] MEDS: [UNRECOGNIZED DRUG - OTHER] BOTH EYES ×2 (08:54→21:20)
[2023-12-25] MEDS: TEARS BOTH EYES ×2 (08:54→21:20)
[2023-12-25] MEDS: FISH OIL GT (08:54)
[2023-12-25] MEDS: DEXLANSOPRAZOLE 30 MG GT (08:54)
[2023-12-25] MEDS: MULTIVIT-MIN/IRON FUM/FOLIC AC 1 EACH TABLET GT (08:55)
[2023-12-25] MEDS: SENNOSIDES 8.6 MG TABLET GT ×2 (08:56→21:19)
--- NOTE | 2023-12-25 15:35 | PC.SS ---
Room visit resident is laying in bed with head of the bed elevated with call light properly placed with no signs of distress. Resident is well groomed appears comfortable. Resident has no changes in mood or behavior, he will remain in current care. Staff will continue to meet all subacute care needs, this SSD to make daily contact with resident and monitor for changes in mood or behavior.
[2023-12-26] VITALS (10 sets, daily range): BP systolic 99–120; BP diastolic 60–73; PULSE 53–70; RESP 18; TEMP 36.2–36.3; O2SAT 96–97
[2023-12-26] MEDS: TEARS BOTH EYES ×2 (08:41→21:18)
[2023-12-26] MEDS: [UNRECOGNIZED DRUG - OTHER] BOTH EYES ×2 (08:41→21:18)
[2023-12-26] MEDS: DEXLANSOPRAZOLE 30 MG GT (08:41)
[2023-12-26] MEDS: [UNRECOGNIZED DRUG - OTHER] GT (08:41)
[2023-12-26] MEDS: FLAX GT (08:41)
[2023-12-26] MEDS: FISH OIL GT (08:41)
[2023-12-26] MEDS: BORAGE GT (08:41)
[2023-12-26] MEDS: LOSARTAN 25 MG TABLET GT (08:42)
[2023-12-26] MEDS: SENNOSIDES 8.6 MG TABLET GT ×2 (08:43→21:18)
[2023-12-26] MEDS: MULTIVIT-MIN/IRON FUM/FOLIC AC 1 EACH TABLET GT (08:43)
--- NOTE | 2023-12-26 10:44 | CHAP ---
Patient was visited by the Spiritual Care Volunteer who prayed for them. (Volunteer was in the hospital from 10:12-10:44).
[2023-12-26] MEDS: PROPRANOLOL 10 MG TABLET 20 MG GT ×2 (14:14→21:18)
[2023-12-27] VITALS (9 sets, daily range): BP systolic 102–124; BP diastolic 68–74; PULSE 56–78; RESP 16–18; TEMP 35.8–36.2; O2SAT 95–97
[2023-12-27] MEDS: MAGNESIUM HYDROXIDE 30 ML ORAL SUSP ML GT (00:39)
[2023-12-27] MEDS: PROPRANOLOL 10 MG TABLET 20 MG GT ×3 (05:34→21:32)
[2023-12-27] MEDS: [UNRECOGNIZED DRUG - OTHER] BOTH EYES ×2 (09:15→20:28)
[2023-12-27] MEDS: TEARS BOTH EYES ×2 (09:15→20:28)
[2023-12-27] MEDS: SENNOSIDES 8.6 MG TABLET GT ×2 (09:16→20:29)
[2023-12-27] MEDS: FISH OIL GT (09:16)
[2023-12-27] MEDS: LOSARTAN 25 MG TABLET GT (09:16)
[2023-12-27] MEDS: FLAX GT (09:16)
[2023-12-27] MEDS: [UNRECOGNIZED DRUG - OTHER] GT (09:16)
[2023-12-27] MEDS: DEXLANSOPRAZOLE 30 MG GT (09:16)
[2023-12-27] MEDS: BORAGE GT (09:16)
[2023-12-27] MEDS: MULTIVIT-MIN/IRON FUM/FOLIC AC 1 EACH TABLET GT (09:16)
--- NOTE | 2023-12-27 13:00 | CHAP ---
Patient was visited by the Spiritual Care Volunteer who prayed for them outside room. (Volunteer was in hospital from 09:20-13:00)
[2023-12-28] VITALS (11 sets, daily range): BP systolic 105–134; BP diastolic 61–80; PULSE 57–75; RESP 16–20; TEMP 36.1–36.5; O2SAT 94–100
[2023-12-28] MEDS: PROPRANOLOL 10 MG TABLET 20 MG GT ×3 (05:28→21:06)
[2023-12-28] MEDS: FISH OIL GT (08:44)
[2023-12-28] MEDS: FLAX GT (08:44)
[2023-12-28] MEDS: DEXLANSOPRAZOLE 30 MG GT (08:44)
[2023-12-28] MEDS: [UNRECOGNIZED DRUG - OTHER] GT (08:44)
[2023-12-28] MEDS: BORAGE GT (08:44)
[2023-12-28] MEDS: [UNRECOGNIZED DRUG - OTHER] BOTH EYES ×2 (08:44→21:06)
[2023-12-28] MEDS: TEARS BOTH EYES ×2 (08:44→21:06)
[2023-12-28] MEDS: MULTIVIT-MIN/IRON FUM/FOLIC AC 1 EACH TABLET GT (08:45)
[2023-12-28] MEDS: SENNOSIDES 8.6 MG TABLET GT ×2 (08:45→21:06)
[2023-12-28] MEDS: LOSARTAN 25 MG TABLET GT (08:45)
--- NOTE | 2023-12-28 22:41 | PD.SAPROG ---
Progress Note - SubAcute DIAGNOSIS (1) Traumatic brain injury: Status: Chronic (2) Anoxic brain damage, not elsewhere classified: Status: Chronic (3) Tracheostomy status: Status: Chronic (4) Gastrostomy status: Status: Chronic (5) Chronic respiratory failure: Status: Chronic SUBJECTIVE Fever:: none GI:: none Shortness of Breath:: none GI:: no complaints Pain:: none OBJECTIVE Most recent vital signs: Last Vital Signs Temp 97.7 F 12/28/23 18:00 Pulse 71 12/28/23 21:06 Resp 18 12/28/23 19:37 BP 134/80 H 12/28/23 21:06 Pulse Ox 95 12/28/23 19:37 O2 Del Method Trach Collar 12/27/23 12:00 O2 Flow Rate 10 12/28/23 19:37 FiO2 35 12/28/23 19:37 Neurological:: awake Speech:: none Answers questions:: sometimes (Sometimes opens eyes to command.) Respiratory:: lungs clear Cardiovascular: RRR Abdomen: soft and nontender Extremities:: deformities Decubitus:: none Tracheostomy:: to blow by Feeding per:: G tube Complaints:: none ASSESSMENT & PLAN Assessment: Stable status. No improvement in cognitive function. Diagnosis and treatment reviewed. Prognosis poor. Plan: Current treatment continued as ongoing
[2023-12-29] VITALS (10 sets, daily range): BP systolic 100–127; BP diastolic 62–78; PULSE 55–87; RESP 16–18; TEMP 36.2–36.4; O2SAT 97–99
[2023-12-29] MEDS: [UNRECOGNIZED DRUG - OTHER] BOTH EYES ×2 (09:09→20:25)
[2023-12-29] MEDS: DEXLANSOPRAZOLE 30 MG GT (09:09)
[2023-12-29] MEDS: TEARS BOTH EYES ×2 (09:09→20:25)
[2023-12-29] MEDS: FISH OIL GT (09:10)
[2023-12-29] MEDS: FLAX GT (09:10)
[2023-12-29] MEDS: [UNRECOGNIZED DRUG - OTHER] GT (09:10)
[2023-12-29] MEDS: LOSARTAN 25 MG TABLET GT (09:10)
[2023-12-29] MEDS: BORAGE GT (09:10)
[2023-12-29] MEDS: MULTIVIT-MIN/IRON FUM/FOLIC AC 1 EACH TABLET GT (09:11)
[2023-12-29] MEDS: SENNOSIDES 8.6 MG TABLET GT ×2 (09:11→20:25)
[2023-12-29] MEDS: PROPRANOLOL 10 MG TABLET 20 MG GT ×2 (14:02→21:10)
[2023-12-30] VITALS (11 sets, daily range): BP systolic 90–119; BP diastolic 55–71; PULSE 56–81; RESP 17–22; TEMP 36.1–36.5; O2SAT 98–99
[2023-12-30] MEDS: DEXLANSOPRAZOLE 30 MG GT (08:40)
[2023-12-30] MEDS: MULTIVIT-MIN/IRON FUM/FOLIC AC 1 EACH TABLET GT (08:42)
[2023-12-30] MEDS: [UNRECOGNIZED DRUG - OTHER] GT (08:42)
[2023-12-30] MEDS: FISH OIL GT (08:42)
[2023-12-30] MEDS: FLAX GT (08:42)
[2023-12-30] MEDS: SENNOSIDES 8.6 MG TABLET GT ×2 (08:42→20:35)
[2023-12-30] MEDS: BORAGE GT (08:42)
[2023-12-30] MEDS: TEARS BOTH EYES ×2 (08:43→20:39)
[2023-12-30] MEDS: [UNRECOGNIZED DRUG - OTHER] BOTH EYES ×2 (08:43→20:39)
[2023-12-30] MEDS: PROPRANOLOL 10 MG TABLET 20 MG GT ×2 (14:26→21:05)
[2023-12-30] MEDS: MAGNESIUM HYDROXIDE 30 ML ORAL SUSP ML GT (20:35)
[2023-12-31] VITALS (10 sets, daily range): BP systolic 99–152; BP diastolic 63–86; PULSE 58–77; RESP 18; TEMP 36.1–36.6; O2SAT 96–98
[2023-12-31] MEDS: PROPRANOLOL 10 MG TABLET 20 MG GT ×3 (05:09→21:00)
[2023-12-31] MEDS: DEXLANSOPRAZOLE 30 MG GT (09:01)
[2023-12-31] MEDS: [UNRECOGNIZED DRUG - OTHER] BOTH EYES ×2 (09:01→20:59)
[2023-12-31] MEDS: FLAX GT (09:01)
[2023-12-31] MEDS: [UNRECOGNIZED DRUG - OTHER] GT (09:01)
[2023-12-31] MEDS: TEARS BOTH EYES ×2 (09:01→20:59)
[2023-12-31] MEDS: FISH OIL GT (09:01)
[2023-12-31] MEDS: BORAGE GT (09:01)
[2023-12-31] MEDS: MULTIVIT-MIN/IRON FUM/FOLIC AC 1 EACH TABLET GT (09:02)
[2023-12-31] MEDS: LOSARTAN 25 MG TABLET GT (09:02)
[2023-12-31] MEDS: SENNOSIDES 8.6 MG TABLET GT (20:59)
[2024-01-01] VITALS (10 sets, daily range): BP systolic 106–146; BP diastolic 66–83; PULSE 56–87; RESP 18–20; TEMP 35.9–36.6; O2SAT 96–97
[2024-01-01] MEDS: LOSARTAN 25 MG TABLET GT (09:10)
[2024-01-01] MEDS: [UNRECOGNIZED DRUG - OTHER] GT (09:10)
[2024-01-01] MEDS: FLAX GT (09:10)
[2024-01-01] MEDS: BORAGE GT (09:10)
[2024-01-01] MEDS: [UNRECOGNIZED DRUG - OTHER] BOTH EYES ×2 (09:10→20:20)
[2024-01-01] MEDS: TEARS BOTH EYES ×2 (09:10→20:20)
[2024-01-01] MEDS: FISH OIL GT (09:10)
[2024-01-01] MEDS: DEXLANSOPRAZOLE 30 MG GT (09:10)
[2024-01-01] MEDS: SENNOSIDES 8.6 MG TABLET GT ×2 (09:11→20:20)
[2024-01-01] MEDS: MULTIVIT-MIN/IRON FUM/FOLIC AC 1 EACH TABLET GT (09:11)
[2024-01-01] MEDS: PROPRANOLOL 10 MG TABLET 20 MG GT ×2 (14:28→22:07)
[2024-01-01] MEDS: CARBAMIDE PEROXIDE OTIC SOL 15 ML BTL 5 DROP BOTH EARS (20:20)
--- NOTE | 2024-01-01 21:32 | PD.SAPROG ---
Progress Note - SubAcute DIAGNOSIS (1) Traumatic brain injury: Status: Chronic (2) Anoxic brain damage, not elsewhere classified: Status: Chronic (3) Tracheostomy status: Status: Chronic (4) Gastrostomy status: Status: Chronic (5) Chronic respiratory failure: Status: Chronic SUBJECTIVE Fever:: none GI:: none Shortness of Breath:: none GI:: no complaints Pain:: none OBJECTIVE Most recent vital signs: Last Vital Signs Temp 96.7 F L 01/01/24 18:00 Pulse 78 01/01/24 18:00 Resp 18 01/01/24 18:00 BP 115/77 01/01/24 18:00 Pulse Ox 97 01/01/24 06:40 O2 Del Method Blow-by 01/01/24 06:00 O2 Flow Rate 10 01/01/24 06:40 FiO2 35 01/01/24 06:40 Neurological:: awake Speech:: none Answers questions:: sometimes (Sometimes opens eyes to command.) Respiratory:: lungs clear Cardiovascular: RRR Abdomen: soft and nontender Extremities:: deformities Decubitus:: none Tracheostomy:: to blow by Feeding per:: G tube Complaints:: none ASSESSMENT & PLAN Assessment: Stable status. No improvement in cognitive function. Diagnosis and treatment reviewed. Prognosis poor. Plan: Current treatment continued as ongoing
[2024-01-02] VITALS (10 sets, daily range): BP systolic 96–138; BP diastolic 62–87; PULSE 61–94; RESP 17–23; TEMP 36.1–36.5; O2SAT 96–98
[2024-01-02] MEDS: PROPRANOLOL 10 MG TABLET 20 MG GT ×2 (06:39→14:00)
[2024-01-02] MEDS: CARBAMIDE PEROXIDE OTIC SOL 15 ML BTL 5 DROP BOTH EARS (08:40)
[2024-01-02] MEDS: SENNOSIDES 8.6 MG TABLET GT ×2 (09:25→20:47)
[2024-01-02] MEDS: FISH OIL GT (09:25)
[2024-01-02] MEDS: FLAX GT (09:25)
[2024-01-02] MEDS: MULTIVIT-MIN/IRON FUM/FOLIC AC 1 EACH TABLET GT (09:25)
[2024-01-02] MEDS: LOSARTAN 25 MG TABLET GT (09:25)
[2024-01-02] MEDS: DEXLANSOPRAZOLE 30 MG GT (09:25)
[2024-01-02] MEDS: BORAGE GT (09:25)
[2024-01-02] MEDS: [UNRECOGNIZED DRUG - OTHER] GT (09:25)
--- NOTE | 2024-01-02 13:55 | CHAP ---
10:30 AM Visited by spiritual care volunteer Provided prayer for Patient.
[2024-01-02] MEDS: TEARS BOTH EYES (20:46)
[2024-01-02] MEDS: [UNRECOGNIZED DRUG - OTHER] BOTH EYES (20:46)
[2024-01-02] MEDS: MAGNESIUM HYDROXIDE 30 ML ORAL SUSP ML GT (20:50)
[2024-01-03] VITALS (11 sets, daily range): BP systolic 100–115; BP diastolic 55–74; PULSE 50–77; RESP 18–23; TEMP 36.1–36.5; O2SAT 97–98
[2024-01-03] MEDS: PROPRANOLOL 10 MG TABLET 20 MG GT ×2 (06:34→14:16)
[2024-01-03] MEDS: CARBAMIDE PEROXIDE OTIC SOL 15 ML BTL 5 DROP BOTH EARS (08:40)
[2024-01-03] MEDS: [UNRECOGNIZED DRUG - OTHER] BOTH EYES ×2 (08:40→21:37)
[2024-01-03] MEDS: TEARS BOTH EYES ×2 (08:40→21:37)
[2024-01-03] MEDS: MULTIVIT-MIN/IRON FUM/FOLIC AC 1 EACH TABLET GT (08:41)
[2024-01-03] MEDS: [UNRECOGNIZED DRUG - OTHER] GT (08:41)
[2024-01-03] MEDS: FLAX GT (08:41)
[2024-01-03] MEDS: FISH OIL GT (08:41)
[2024-01-03] MEDS: BORAGE GT (08:41)
[2024-01-03] MEDS: SENNOSIDES 8.6 MG TABLET GT ×2 (08:41→20:17)
[2024-01-03] MEDS: DEXLANSOPRAZOLE 30 MG GT (08:41)
--- NOTE | 2024-01-03 13:35 | CHAP ---
Patient was visited by the Spiritual Care Volunteer who prayed for them. (Volunteer was in the hospital from 11:30 -1:35).
--- NOTE | 2024-01-03 14:48 | PC.SS ---
Room visit: Resident is laying in bed with head of the bed elevated with call light properly laced. Resident remains on blow by with trach and GT in place for medication and nutrition. Resident has no changes in care or condition, resident will remain in current care. Resident will continue to have all needs met for subacute care. SSD will make daily contact with resident and will monitor for changes in care or condition.
[2024-01-04] VITALS (9 sets, daily range): BP systolic 98–121; BP diastolic 58–83; PULSE 62–89; RESP 18–19; TEMP 36.2–36.4; O2SAT 95–99
[2024-01-04] MEDS: TEARS BOTH EYES ×2 (08:44→20:55)
[2024-01-04] MEDS: DEXLANSOPRAZOLE 30 MG GT (08:44)
[2024-01-04] MEDS: [UNRECOGNIZED DRUG - OTHER] BOTH EYES ×2 (08:44→20:55)
[2024-01-04] MEDS: FISH OIL GT (08:51)
[2024-01-04] MEDS: BORAGE GT (08:51)
[2024-01-04] MEDS: MULTIVIT-MIN/IRON FUM/FOLIC AC 1 EACH TABLET GT (08:51)
[2024-01-04] MEDS: SENNOSIDES 8.6 MG TABLET GT ×2 (08:51→20:56)
[2024-01-04] MEDS: FLAX GT (08:51)
[2024-01-04] MEDS: [UNRECOGNIZED DRUG - OTHER] GT (08:51)
[2024-01-04] MEDS: CARBAMIDE PEROXIDE OTIC SOL 15 ML BTL 5 DROP BOTH EARS (09:00)
[2024-01-04] MEDS: PROPRANOLOL 10 MG TABLET 20 MG GT ×2 (14:07→21:00)
[2024-01-05] VITALS (10 sets, daily range): BP systolic 97–120; BP diastolic 60–79; PULSE 53–73; RESP 18–21; TEMP 36.3–36.5; O2SAT 97–99
[2024-01-05] MEDS: PROPRANOLOL 10 MG TABLET 20 MG GT (05:34)
[2024-01-05] MEDS: TEARS BOTH EYES ×2 (08:48→20:31)
[2024-01-05] MEDS: DEXLANSOPRAZOLE 30 MG GT (08:48)
[2024-01-05] MEDS: [UNRECOGNIZED DRUG - OTHER] BOTH EYES ×2 (08:48→20:31)
[2024-01-05] MEDS: SENNOSIDES 8.6 MG TABLET GT ×2 (08:50→20:31)
[2024-01-05] MEDS: [UNRECOGNIZED DRUG - OTHER] GT (08:50)
[2024-01-05] MEDS: MULTIVIT-MIN/IRON FUM/FOLIC AC 1 EACH TABLET GT (08:50)
[2024-01-05] MEDS: BORAGE GT (08:50)
[2024-01-05] MEDS: FLAX GT (08:50)
[2024-01-05] MEDS: FISH OIL GT (08:50)
--- NOTE | 2024-01-05 19:10 | PD.SAPROG ---
Progress Note - SubAcute DIAGNOSIS (1) Traumatic brain injury: Status: Chronic (2) Anoxic brain damage, not elsewhere classified: Status: Chronic (3) Tracheostomy status: Status: Chronic (4) Gastrostomy status: Status: Chronic (5) Chronic respiratory failure: Status: Chronic SUBJECTIVE Fever:: none GI:: none Shortness of Breath:: none GI:: no complaints Pain:: none OBJECTIVE Most recent vital signs: Last Vital Signs Temp 97.7 F 01/07/24 00:00 Pulse 75 01/07/24 05:29 Resp 18 01/07/24 00:00 BP 100/68 01/07/24 05:29 Pulse Ox 98 01/06/24 20:29 O2 Del Method Blow-by 01/03/24 18:00 O2 Flow Rate 10 01/06/24 20:29 FiO2 35 01/06/24 20:29 Neurological:: awake Speech:: none Answers questions:: sometimes (Sometimes opens eyes to command.) Respiratory:: lungs clear Cardiovascular: RRR Abdomen: soft and nontender Extremities:: deformities Decubitus:: none Tracheostomy:: to blow by Feeding per:: G tube Complaints:: none ASSESSMENT & PLAN Assessment: Stable status. No improvement in cognitive function. Diagnosis and treatment reviewed. Prognosis poor. Plan: Current treatment continued as ongoing
[2024-01-05] MEDS: CARBAMIDE PEROXIDE OTIC SOL 15 ML BTL 5 DROP BOTH EARS (20:31)
[2024-01-06] VITALS (10 sets, daily range): BP systolic 92–136; BP diastolic 57–79; PULSE 61–81; RESP 18–19; TEMP 36.4–36.7; O2SAT 95–98
[2024-01-06] MEDS: PROPRANOLOL 10 MG TABLET 20 MG GT ×2 (05:32→20:48)
[2024-01-06] MEDS: TEARS BOTH EYES ×2 (08:23→20:47)
[2024-01-06] MEDS: FLAX GT (08:23)
[2024-01-06] MEDS: FISH OIL GT (08:23)
[2024-01-06] MEDS: BORAGE GT (08:23)
[2024-01-06] MEDS: DEXLANSOPRAZOLE 30 MG GT (08:23)
[2024-01-06] MEDS: [UNRECOGNIZED DRUG - OTHER] BOTH EYES ×2 (08:23→20:47)
[2024-01-06] MEDS: [UNRECOGNIZED DRUG - OTHER] GT (08:23)
[2024-01-06] MEDS: MULTIVIT-MIN/IRON FUM/FOLIC AC 1 EACH TABLET GT (08:24)
[2024-01-06] MEDS: SENNOSIDES 8.6 MG TABLET GT ×2 (08:24→20:47)
[2024-01-07] VITALS (10 sets, daily range): BP systolic 98–136; BP diastolic 60–87; PULSE 57–80; RESP 16–20; TEMP 36.3–36.5; O2SAT 93–100
[2024-01-07] MEDS: PROPRANOLOL 10 MG TABLET 20 MG GT ×3 (05:29→21:23)
[2024-01-07] MEDS: [UNRECOGNIZED DRUG - OTHER] BOTH EYES ×2 (08:40→20:07)
[2024-01-07] MEDS: TEARS BOTH EYES ×2 (08:40→20:07)
[2024-01-07] MEDS: MULTIVIT-MIN/IRON FUM/FOLIC AC 1 EACH TABLET GT (08:41)
[2024-01-07] MEDS: [UNRECOGNIZED DRUG - OTHER] GT (08:41)
[2024-01-07] MEDS: FLAX GT (08:41)
[2024-01-07] MEDS: BORAGE GT (08:41)
[2024-01-07] MEDS: LOSARTAN 25 MG TABLET GT (08:41)
[2024-01-07] MEDS: FISH OIL GT (08:41)
[2024-01-07] MEDS: DEXLANSOPRAZOLE 30 MG GT (08:41)
--- NOTE | 2024-01-07 08:41 | CHAP ---
Patient was visited by a [facility] Spiritual Care Volunteer on 01/05/2024 between 1432 and 1512 and received comfort, encouragement and/or prayer.
[2024-01-07] MEDS: SENNOSIDES 8.6 MG TABLET GT ×2 (08:42→20:07)
[2024-01-08] VITALS (9 sets, daily range): BP systolic 94–127; BP diastolic 60–87; PULSE 53–83; RESP 17–20; TEMP 36.2–36.4; O2SAT 98–99
[2024-01-08] MEDS: [UNRECOGNIZED DRUG - OTHER] BOTH EYES ×2 (08:08→20:40)
[2024-01-08] MEDS: TEARS BOTH EYES ×2 (08:08→20:40)
[2024-01-08] MEDS: BORAGE GT (08:31)
[2024-01-08] MEDS: DEXLANSOPRAZOLE 30 MG GT (08:31)
[2024-01-08] MEDS: [UNRECOGNIZED DRUG - OTHER] GT (08:31)
[2024-01-08] MEDS: FLAX GT (08:31)
[2024-01-08] MEDS: FISH OIL GT (08:31)
[2024-01-08] MEDS: SENNOSIDES 8.6 MG TABLET GT ×2 (08:33→20:40)
[2024-01-08] MEDS: MULTIVIT-MIN/IRON FUM/FOLIC AC 1 EACH TABLET GT (08:33)
[2024-01-08] MEDS: MAGNESIUM HYDROXIDE 30 ML ORAL SUSP ML GT (21:40)
[2024-01-08] MEDS: PROPRANOLOL 10 MG TABLET 20 MG GT (22:00)
[2024-01-09] VITALS (10 sets, daily range): BP systolic 99–113; BP diastolic 60–70; PULSE 57–68; RESP 16–20; TEMP 36.2–36.4; O2SAT 96–97
[2024-01-09] MEDS: PROPRANOLOL 10 MG TABLET 20 MG GT ×3 (06:03→21:21)
[2024-01-09] MEDS: SENNOSIDES 8.6 MG TABLET GT ×2 (09:05→21:22)
[2024-01-09] MEDS: [UNRECOGNIZED DRUG - OTHER] BOTH EYES ×2 (09:05→21:21)
[2024-01-09] MEDS: FISH OIL GT (09:05)
[2024-01-09] MEDS: MULTIVIT-MIN/IRON FUM/FOLIC AC 1 EACH TABLET GT (09:05)
[2024-01-09] MEDS: TEARS BOTH EYES ×2 (09:05→21:21)
[2024-01-09] MEDS: [UNRECOGNIZED DRUG - OTHER] GT (09:05)
[2024-01-09] MEDS: DEXLANSOPRAZOLE 30 MG GT (09:05)
[2024-01-09] MEDS: FLAX GT (09:05)
[2024-01-09] MEDS: BORAGE GT (09:05)
--- NOTE | 2024-01-09 22:57 | PD.SAPROG ---
Progress Note - SubAcute DIAGNOSIS (1) Traumatic brain injury: Status: Chronic (2) Anoxic brain damage, not elsewhere classified: Status: Chronic (3) Tracheostomy status: Status: Chronic (4) Gastrostomy status: Status: Chronic (5) Chronic respiratory failure: Status: Chronic SUBJECTIVE Fever:: none GI:: none Shortness of Breath:: none GI:: no complaints Pain:: none OBJECTIVE Most recent vital signs: Last Vital Signs Temp 97.2 F 01/09/24 17:49 Pulse 64 01/09/24 21:21 Resp 20 01/09/24 18:15 BP 100/60 01/09/24 21:21 Pulse Ox 96 01/09/24 18:15 O2 Del Method Blow-by 01/03/24 18:00 O2 Flow Rate 10 01/09/24 18:15 FiO2 35 01/09/24 18:15 Neurological:: awake Speech:: none Answers questions:: sometimes (Sometimes opens eyes to command.) Respiratory:: lungs clear Cardiovascular: RRR Abdomen: soft and nontender Extremities:: deformities Decubitus:: none Tracheostomy:: to blow by Feeding per:: G tube Complaints:: none ASSESSMENT & PLAN Assessment: Stable status. No improvement in cognitive function. Diagnosis and treatment reviewed. Prognosis poor. Plan: Current treatment continued as ongoing
[2024-01-10] VITALS (11 sets, daily range): BP systolic 92–119; BP diastolic 59–76; PULSE 56–79; RESP 17–20; TEMP 36.1–36.4; O2SAT 96–98
[2024-01-10] MEDS: SENNOSIDES 8.6 MG TABLET GT ×2 (09:09→21:37)
[2024-01-10] MEDS: TEARS BOTH EYES ×2 (09:09→21:36)
[2024-01-10] MEDS: FLAX GT (09:09)
[2024-01-10] MEDS: BORAGE GT (09:09)
[2024-01-10] MEDS: FISH OIL GT (09:09)
[2024-01-10] MEDS: DEXLANSOPRAZOLE 30 MG GT (09:09)
[2024-01-10] MEDS: [UNRECOGNIZED DRUG - OTHER] BOTH EYES ×2 (09:09→21:36)
[2024-01-10] MEDS: [UNRECOGNIZED DRUG - OTHER] GT (09:09)
[2024-01-10] MEDS: MULTIVIT-MIN/IRON FUM/FOLIC AC 1 EACH TABLET GT (09:09)
[2024-01-11] VITALS (9 sets, daily range): BP systolic 111–139; BP diastolic 65–75; PULSE 59–89; RESP 17–20; TEMP 36.2–36.4; O2SAT 96–99
[2024-01-11] MEDS: PROPRANOLOL 10 MG TABLET 20 MG GT ×3 (05:05→22:07)
[2024-01-11] MEDS: DEXLANSOPRAZOLE 30 MG GT (08:48)
[2024-01-11] MEDS: TEARS BOTH EYES ×2 (08:48→20:31)
[2024-01-11] MEDS: [UNRECOGNIZED DRUG - OTHER] BOTH EYES ×2 (08:48→20:31)
[2024-01-11] MEDS: FISH OIL GT (08:49)
[2024-01-11] MEDS: LOSARTAN 25 MG TABLET GT (08:49)
[2024-01-11] MEDS: BORAGE GT (08:49)
[2024-01-11] MEDS: MULTIVIT-MIN/IRON FUM/FOLIC AC 1 EACH TABLET GT (08:49)
[2024-01-11] MEDS: [UNRECOGNIZED DRUG - OTHER] GT (08:49)
[2024-01-11] MEDS: FLAX GT (08:49)
[2024-01-11] MEDS: SENNOSIDES 8.6 MG TABLET GT ×2 (08:49→20:32)
--- NOTE | 2024-01-11 21:13 | PD.SAPROG ---
Progress Note - SubAcute DIAGNOSIS (1) Traumatic brain injury: Status: Chronic (2) Anoxic brain damage, not elsewhere classified: Status: Chronic (3) Tracheostomy status: Status: Chronic (4) Gastrostomy status: Status: Chronic (5) Chronic respiratory failure: Status: Chronic SUBJECTIVE Fever:: none GI:: none Shortness of Breath:: none GI:: no complaints Pain:: none OBJECTIVE Most recent vital signs: Last Vital Signs Temp 97.5 F 01/11/24 18:00 Pulse 61 01/11/24 18:00 Resp 17 01/11/24 18:00 BP 111/65 01/11/24 18:00 Pulse Ox 99 01/11/24 18:00 O2 Del Method Blow-by 01/10/24 05:52 O2 Flow Rate 10 01/11/24 06:24 FiO2 35 01/11/24 06:24 Neurological:: awake Speech:: none Answers questions:: sometimes (Sometimes opens eyes to command.) Respiratory:: lungs clear Cardiovascular: RRR Abdomen: soft and nontender Extremities:: deformities Decubitus:: none Tracheostomy:: to blow by Feeding per:: G tube Complaints:: none ASSESSMENT & PLAN Assessment: Stable status. No improvement in cognitive function. Diagnosis and treatment reviewed. Prognosis poor. Plan: Current treatment continued as ongoing
[2024-01-12] VITALS (10 sets, daily range): BP systolic 97–116; BP diastolic 60–77; PULSE 57–80; RESP 18–20; TEMP 36–36.4; O2SAT 97–99
[2024-01-12] MEDS: PROPRANOLOL 10 MG TABLET 20 MG GT ×2 (05:16→14:24)
[2024-01-12] MEDS: [UNRECOGNIZED DRUG - OTHER] GT (08:32)
[2024-01-12] MEDS: FLAX GT (08:32)
[2024-01-12] MEDS: [UNRECOGNIZED DRUG - OTHER] BOTH EYES ×2 (08:32→20:29)
[2024-01-12] MEDS: BORAGE GT (08:32)
[2024-01-12] MEDS: TEARS BOTH EYES ×2 (08:32→20:29)
[2024-01-12] MEDS: DEXLANSOPRAZOLE 30 MG GT (08:32)
[2024-01-12] MEDS: FISH OIL GT (08:32)
[2024-01-12] MEDS: SENNOSIDES 8.6 MG TABLET GT ×2 (08:33→20:29)
[2024-01-12] MEDS: MULTIVIT-MIN/IRON FUM/FOLIC AC 1 EACH TABLET GT (08:33)
[2024-01-13] VITALS (11 sets, daily range): BP systolic 96–119; BP diastolic 61–73; PULSE 60–82; RESP 17–20; TEMP 36.2–36.7; O2SAT 95–99
[2024-01-13] MEDS: PROPRANOLOL 10 MG TABLET 20 MG GT ×3 (05:11→21:47)
[2024-01-13] MEDS: TEARS BOTH EYES ×2 (08:58→21:47)
[2024-01-13] MEDS: [UNRECOGNIZED DRUG - OTHER] BOTH EYES ×2 (08:58→21:47)
[2024-01-13] MEDS: DEXLANSOPRAZOLE 30 MG GT (08:59)
[2024-01-13] MEDS: BORAGE GT (08:59)
[2024-01-13] MEDS: FLAX GT (08:59)
[2024-01-13] MEDS: FISH OIL GT (08:59)
[2024-01-13] MEDS: [UNRECOGNIZED DRUG - OTHER] GT (08:59)
[2024-01-13] MEDS: SENNOSIDES 8.6 MG TABLET GT ×2 (09:00→21:46)
[2024-01-13] MEDS: MULTIVIT-MIN/IRON FUM/FOLIC AC 1 EACH TABLET GT (09:00)
[2024-01-14] VITALS (10 sets, daily range): BP systolic 94–111; BP diastolic 61–73; PULSE 56–83; RESP 18–20; TEMP 36.2–36.6; O2SAT 96–98
[2024-01-14] MEDS: [UNRECOGNIZED DRUG - OTHER] GT (08:23)
[2024-01-14] MEDS: LOSARTAN 25 MG TABLET GT (08:23)
[2024-01-14] MEDS: BORAGE GT (08:23)
[2024-01-14] MEDS: FLAX GT (08:23)
[2024-01-14] MEDS: DEXLANSOPRAZOLE 30 MG GT (08:23)
[2024-01-14] MEDS: FISH OIL GT (08:23)
[2024-01-14] MEDS: TEARS BOTH EYES ×2 (08:23→20:38)
[2024-01-14] MEDS: [UNRECOGNIZED DRUG - OTHER] BOTH EYES ×2 (08:23→20:38)
[2024-01-14] MEDS: MULTIVIT-MIN/IRON FUM/FOLIC AC 1 EACH TABLET GT (08:24)
[2024-01-14] MEDS: SENNOSIDES 8.6 MG TABLET GT ×2 (08:24→20:38)
[2024-01-14] MEDS: MAGNESIUM HYDROXIDE 30 ML ORAL SUSP ML GT (08:25)
--- NOTE | 2024-01-14 13:29 | PC.SS ---
Resident seen by DDS for full mouth dental cleaning with fluoride, tolerated well. Recommendation for a 4 month dental cleaning. [facility] will get in touch with this SSD for schedule of next bedside appointment.
[2024-01-14] MEDS: PROPRANOLOL 10 MG TABLET 20 MG GT (13:52)
[2024-01-15] VITALS (9 sets, daily range): BP systolic 97–115; BP diastolic 63–71; PULSE 53–92; RESP 18–19; TEMP 36.4–36.7; O2SAT 95–98
[2024-01-15] MEDS: TEARS BOTH EYES ×2 (08:50→20:54)
[2024-01-15] MEDS: DEXLANSOPRAZOLE 30 MG GT (08:50)
[2024-01-15] MEDS: MULTIVIT-MIN/IRON FUM/FOLIC AC 1 EACH TABLET GT (08:50)
[2024-01-15] MEDS: FISH OIL GT (08:50)
[2024-01-15] MEDS: [UNRECOGNIZED DRUG - OTHER] BOTH EYES ×2 (08:50→20:54)
[2024-01-15] MEDS: SENNOSIDES 8.6 MG TABLET GT ×2 (08:50→20:54)
[2024-01-15] MEDS: FLAX GT (08:50)
[2024-01-15] MEDS: BORAGE GT (08:50)
[2024-01-15] MEDS: [UNRECOGNIZED DRUG - OTHER] GT (08:50)
[2024-01-16] VITALS (11 sets, daily range): BP systolic 95–121; BP diastolic 60–77; PULSE 59–81; RESP 18–20; TEMP 36.3–36.7; O2SAT 96–98
[2024-01-16] MEDS: PROPRANOLOL 10 MG TABLET 20 MG GT ×3 (06:27→21:00)
[2024-01-16] MEDS: [UNRECOGNIZED DRUG - OTHER] BOTH EYES ×2 (08:52→20:59)
[2024-01-16] MEDS: DEXLANSOPRAZOLE 30 MG GT (08:52)
[2024-01-16] MEDS: TEARS BOTH EYES ×2 (08:52→20:59)
[2024-01-16] MEDS: MULTIVIT-MIN/IRON FUM/FOLIC AC 1 EACH TABLET GT (08:53)
[2024-01-16] MEDS: SENNOSIDES 8.6 MG TABLET GT ×2 (08:53→20:59)
[2024-01-16] MEDS: FLAX GT (08:53)
[2024-01-16] MEDS: FISH OIL GT (08:53)
[2024-01-16] MEDS: BORAGE GT (08:53)
[2024-01-16] MEDS: [UNRECOGNIZED DRUG - OTHER] GT (08:53)
--- NOTE | 2024-01-16 10:40 | CHAP ---
Patient was visited by the Spiritual Care Volunteer who prayed for them. (Volunteer was in the hospital from 10:15-10:40).
--- NOTE | 2024-01-16 12:07 | PC.NURSE ---
Cyber Defense Analyst Pharmacist MRR
--- NOTE | 2024-01-16 13:45 | PD.SAPROG ---
Progress Note - SubAcute DIAGNOSIS (1) Traumatic brain injury: Status: Chronic (2) Anoxic brain damage, not elsewhere classified: Status: Chronic (3) Tracheostomy status: Status: Chronic (4) Gastrostomy status: Status: Chronic (5) Chronic respiratory failure: Status: Chronic SUBJECTIVE Fever:: none GI:: none Shortness of Breath:: none GI:: no complaints Pain:: none OBJECTIVE Most recent vital signs: Last Vital Signs Temp 97.8 F 01/20/24 18:00 Pulse 70 01/20/24 21:22 Resp 18 01/20/24 18:00 BP 121/71 01/20/24 21:22 Pulse Ox 95 01/20/24 18:00 O2 Del Method Blow-by 01/20/24 18:00 O2 Flow Rate 10 01/20/24 09:00 FiO2 35 01/20/24 09:00 Neurological:: awake Speech:: none Answers questions:: sometimes (Sometimes opens eyes to command.) Respiratory:: lungs clear Cardiovascular: RRR Abdomen: soft and nontender Extremities:: deformities Decubitus:: none Tracheostomy:: to blow by Feeding per:: G tube Complaints:: none ASSESSMENT & PLAN Assessment: Stable status. No improvement in cognitive function. Diagnosis and treatment reviewed. Prognosis poor. Plan: Current treatment continued as ongoing
[2024-01-17] VITALS (9 sets, daily range): BP systolic 100–116; BP diastolic 58–66; PULSE 56–79; RESP 15–19; TEMP 36.1–36.6; O2SAT 97–100
[2024-01-17] MEDS: PROPRANOLOL 10 MG TABLET 20 MG GT ×3 (05:07→22:00)
[2024-01-17] MEDS: BORAGE GT (08:48)
[2024-01-17] MEDS: [UNRECOGNIZED DRUG - OTHER] GT (08:48)
[2024-01-17] MEDS: TEARS BOTH EYES ×2 (08:48→20:36)
[2024-01-17] MEDS: [UNRECOGNIZED DRUG - OTHER] BOTH EYES ×2 (08:48→20:36)
[2024-01-17] MEDS: FLAX GT (08:48)
[2024-01-17] MEDS: MULTIVIT-MIN/IRON FUM/FOLIC AC 1 EACH TABLET GT (08:48)
[2024-01-17] MEDS: DEXLANSOPRAZOLE 30 MG GT (08:48)
[2024-01-17] MEDS: FISH OIL GT (08:48)
[2024-01-17] MEDS: SENNOSIDES 8.6 MG TABLET GT ×2 (08:49→20:36)
[2024-01-18] VITALS (12 sets, daily range): BP systolic 96–114; BP diastolic 60–69; PULSE 55–71; RESP 16–20; TEMP 36.1–36.6; O2SAT 94–96
[2024-01-18] MEDS: FISH OIL GT (08:17)
[2024-01-18] MEDS: [UNRECOGNIZED DRUG - OTHER] BOTH EYES ×2 (08:17→20:00)
[2024-01-18] MEDS: BORAGE GT (08:17)
[2024-01-18] MEDS: TEARS BOTH EYES ×2 (08:17→20:00)
[2024-01-18] MEDS: DEXLANSOPRAZOLE 30 MG GT (08:17)
[2024-01-18] MEDS: FLAX GT (08:17)
[2024-01-18] MEDS: [UNRECOGNIZED DRUG - OTHER] GT (08:17)
[2024-01-18] MEDS: SENNOSIDES 8.6 MG TABLET GT ×2 (08:18→20:02)
[2024-01-18] MEDS: MULTIVIT-MIN/IRON FUM/FOLIC AC 1 EACH TABLET GT (08:18)
[2024-01-18] MEDS: PROPRANOLOL 10 MG TABLET 20 MG GT ×2 (13:10→21:10)
[2024-01-19] VITALS (9 sets, daily range): BP systolic 94–128; BP diastolic 58–76; PULSE 59–66; RESP 17–18; TEMP 36.1–36.6; O2SAT 97
[2024-01-19] MEDS: TEARS BOTH EYES ×2 (08:48→21:24)
[2024-01-19] MEDS: [UNRECOGNIZED DRUG - OTHER] BOTH EYES ×2 (08:48→21:24)
[2024-01-19] MEDS: DEXLANSOPRAZOLE 30 MG GT (08:48)
[2024-01-19] MEDS: FISH OIL GT (08:49)
[2024-01-19] MEDS: FLAX GT (08:49)
[2024-01-19] MEDS: [UNRECOGNIZED DRUG - OTHER] GT (08:49)
[2024-01-19] MEDS: BORAGE GT (08:49)
[2024-01-19] MEDS: MULTIVIT-MIN/IRON FUM/FOLIC AC 1 EACH TABLET GT (08:51)
[2024-01-19] MEDS: LOSARTAN 25 MG TABLET GT (08:51)
[2024-01-19] MEDS: SENNOSIDES 8.6 MG TABLET GT ×2 (08:51→21:25)
[2024-01-19] MEDS: MAGNESIUM HYDROXIDE 30 ML ORAL SUSP ML GT (14:00)
[2024-01-19] MEDS: PROPRANOLOL 10 MG TABLET 20 MG GT ×2 (14:12→22:00)
[2024-01-20] VITALS (12 sets, daily range): BP systolic 97–121; BP diastolic 55–78; PULSE 55–76; RESP 17–20; TEMP 36.2–36.6; O2SAT 95–99
[2024-01-20] MEDS: PROPRANOLOL 10 MG TABLET 20 MG GT ×3 (05:21→21:22)
[2024-01-20] MEDS: DEXLANSOPRAZOLE 30 MG GT (09:06)
[2024-01-20] MEDS: [UNRECOGNIZED DRUG - OTHER] GT (09:06)
[2024-01-20] MEDS: BORAGE GT (09:06)
[2024-01-20] MEDS: LOSARTAN 25 MG TABLET GT (09:06)
[2024-01-20] MEDS: FLAX GT (09:06)
[2024-01-20] MEDS: TEARS BOTH EYES ×2 (09:06→20:44)
[2024-01-20] MEDS: FISH OIL GT (09:06)
[2024-01-20] MEDS: [UNRECOGNIZED DRUG - OTHER] BOTH EYES ×2 (09:06→20:44)
[2024-01-20] MEDS: MULTIVIT-MIN/IRON FUM/FOLIC AC 1 EACH TABLET GT (09:08)
[2024-01-20] MEDS: SENNOSIDES 8.6 MG TABLET GT ×2 (09:09→20:44)
[2024-01-21] VITALS (10 sets, daily range): BP systolic 94–131; BP diastolic 61–84; PULSE 52–70; RESP 16–20; TEMP 36.3–36.6; O2SAT 96–99
[2024-01-21] MEDS: PROPRANOLOL 10 MG TABLET 20 MG GT ×2 (05:16→14:21)
[2024-01-21] MEDS: [UNRECOGNIZED DRUG - OTHER] BOTH EYES ×2 (08:22→20:32)
[2024-01-21] MEDS: DEXLANSOPRAZOLE 30 MG GT (08:22)
[2024-01-21] MEDS: TEARS BOTH EYES ×2 (08:22→20:32)
[2024-01-21] MEDS: BORAGE GT (08:23)
[2024-01-21] MEDS: [UNRECOGNIZED DRUG - OTHER] GT (08:23)
[2024-01-21] MEDS: FISH OIL GT (08:23)
[2024-01-21] MEDS: LOSARTAN 25 MG TABLET GT (08:23)
[2024-01-21] MEDS: FLAX GT (08:23)
[2024-01-21] MEDS: SENNOSIDES 8.6 MG TABLET GT ×2 (08:24→20:32)
[2024-01-21] MEDS: MULTIVIT-MIN/IRON FUM/FOLIC AC 1 EACH TABLET GT (08:24)
[2024-01-22] VITALS (9 sets, daily range): BP systolic 93–112; BP diastolic 58–74; PULSE 58–71; RESP 18–20; TEMP 36.2–36.7; O2SAT 97–99
[2024-01-22] MEDS: PROPRANOLOL 10 MG TABLET 20 MG GT ×2 (05:14→13:42)
[2024-01-22] MEDS: [UNRECOGNIZED DRUG - OTHER] BOTH EYES ×2 (08:07→21:29)
[2024-01-22] MEDS: TEARS BOTH EYES ×2 (08:07→21:29)
[2024-01-22] MEDS: FLAX GT (08:08)
[2024-01-22] MEDS: BORAGE GT (08:08)
[2024-01-22] MEDS: FISH OIL GT (08:08)
[2024-01-22] MEDS: DEXLANSOPRAZOLE 30 MG GT (08:08)
[2024-01-22] MEDS: [UNRECOGNIZED DRUG - OTHER] GT (08:08)
[2024-01-22] MEDS: SENNOSIDES 8.6 MG TABLET GT ×2 (08:09→21:29)
[2024-01-22] MEDS: MULTIVIT-MIN/IRON FUM/FOLIC AC 1 EACH TABLET GT (08:09)
[2024-01-23] VITALS (11 sets, daily range): BP systolic 90–124; BP diastolic 52–79; PULSE 60–94; RESP 18–20; TEMP 36.3–36.8; O2SAT 96–97
[2024-01-23] MEDS: PROPRANOLOL 10 MG TABLET 20 MG GT ×3 (05:02→21:10)
[2024-01-23] MEDS: TEARS BOTH EYES ×2 (08:22→20:25)
[2024-01-23] MEDS: [UNRECOGNIZED DRUG - OTHER] BOTH EYES ×2 (08:22→20:25)
[2024-01-23] MEDS: LOSARTAN 25 MG TABLET GT (08:23)
[2024-01-23] MEDS: BORAGE GT (08:23)
[2024-01-23] MEDS: FISH OIL GT (08:23)
[2024-01-23] MEDS: FLAX GT (08:23)
[2024-01-23] MEDS: [UNRECOGNIZED DRUG - OTHER] GT (08:23)
[2024-01-23] MEDS: DEXLANSOPRAZOLE 30 MG GT (08:23)
[2024-01-23] MEDS: MULTIVIT-MIN/IRON FUM/FOLIC AC 1 EACH TABLET GT (08:24)
[2024-01-23] MEDS: SENNOSIDES 8.6 MG TABLET GT ×2 (08:24→20:26)
[2024-01-24] VITALS (9 sets, daily range): BP systolic 97–151; BP diastolic 63–75; PULSE 58–76; RESP 16–20; TEMP 36.6–36.7; O2SAT 94–99
[2024-01-24] MEDS: PROPRANOLOL 10 MG TABLET 20 MG GT ×3 (05:11→21:45)
[2024-01-24] MEDS: TEARS BOTH EYES ×2 (09:04→20:42)
[2024-01-24] MEDS: [UNRECOGNIZED DRUG - OTHER] BOTH EYES ×2 (09:04→20:42)
[2024-01-24] MEDS: FISH OIL GT (09:05)
[2024-01-24] MEDS: [UNRECOGNIZED DRUG - OTHER] GT (09:05)
[2024-01-24] MEDS: FLAX GT (09:05)
[2024-01-24] MEDS: DEXLANSOPRAZOLE 30 MG GT (09:05)
[2024-01-24] MEDS: BORAGE GT (09:05)
[2024-01-24] MEDS: MULTIVIT-MIN/IRON FUM/FOLIC AC 1 EACH TABLET GT (09:07)
[2024-01-24] MEDS: SENNOSIDES 8.6 MG TABLET GT ×2 (09:07→20:43)
[2024-01-24] MEDS: MAGNESIUM HYDROXIDE 30 ML ORAL SUSP ML GT (09:08)
--- NOTE | 2024-01-24 11:45 | CHAP ---
Patient was visited by the Spiritual Care Volunteer who prayed for them. (Volunteer was in the hospital from 10:10-11:45).
--- NOTE | 2024-01-24 22:30 | PD.SAPROG ---
Progress Note - SubAcute DIAGNOSIS (1) Traumatic brain injury: Status: Chronic (2) Anoxic brain damage, not elsewhere classified: Status: Chronic (3) Tracheostomy status: Status: Chronic (4) Gastrostomy status: Status: Chronic (5) Chronic respiratory failure: Status: Chronic SUBJECTIVE Fever:: none GI:: none Shortness of Breath:: none GI:: no complaints Pain:: none OBJECTIVE Most recent vital signs: Last Vital Signs Temp 97.8 F 01/24/24 18:00 Pulse 75 01/24/24 21:45 Resp 18 01/24/24 19:35 BP 151/75 H 01/24/24 21:45 Pulse Ox 97 01/24/24 19:35 O2 Del Method Blow-by 01/23/24 17:40 O2 Flow Rate 10 01/24/24 19:35 FiO2 35 01/24/24 19:35 Neurological:: awake Speech:: none Answers questions:: sometimes (Sometimes opens eyes to command.) Respiratory:: lungs clear Cardiovascular: RRR Abdomen: soft and nontender Extremities:: deformities Decubitus:: none Tracheostomy:: to blow by Feeding per:: G tube Complaints:: none ASSESSMENT & PLAN Assessment: Stable status. No improvement in cognitive function. Diagnosis and treatment reviewed. Prognosis poor. Plan: Current treatment continued as ongoing
[2024-01-25] VITALS (10 sets, daily range): BP systolic 90–114; BP diastolic 59–75; PULSE 52–83; RESP 18–20; TEMP 36.1–36.8; O2SAT 96–99
[2024-01-25] MEDS: PROPRANOLOL 10 MG TABLET 20 MG GT (05:20)
[2024-01-25] MEDS: [UNRECOGNIZED DRUG - OTHER] BOTH EYES ×2 (08:10→20:53)
[2024-01-25] MEDS: TEARS BOTH EYES ×2 (08:10→20:53)
[2024-01-25] MEDS: BORAGE GT (08:11)
[2024-01-25] MEDS: FISH OIL GT (08:11)
[2024-01-25] MEDS: DEXLANSOPRAZOLE 30 MG GT (08:11)
[2024-01-25] MEDS: MULTIVIT-MIN/IRON FUM/FOLIC AC 1 EACH TABLET GT (08:11)
[2024-01-25] MEDS: [UNRECOGNIZED DRUG - OTHER] GT (08:11)
[2024-01-25] MEDS: FLAX GT (08:11)
[2024-01-25] MEDS: SENNOSIDES 8.6 MG TABLET GT ×2 (08:12→20:53)
[2024-01-26] VITALS (10 sets, daily range): BP systolic 90–139; BP diastolic 57–88; PULSE 52–81; RESP 18–19; TEMP 36–36.6; O2SAT 94–99
[2024-01-26] MEDS: PROPRANOLOL 10 MG TABLET 20 MG GT (05:10)
[2024-01-26] MEDS: DEXLANSOPRAZOLE 30 MG GT (08:01)
[2024-01-26] MEDS: LOSARTAN 25 MG TABLET GT (08:01)
[2024-01-26] MEDS: FISH OIL GT (08:01)
[2024-01-26] MEDS: MULTIVIT-MIN/IRON FUM/FOLIC AC 1 EACH TABLET GT (08:01)
[2024-01-26] MEDS: [UNRECOGNIZED DRUG - OTHER] BOTH EYES ×2 (08:01→20:40)
[2024-01-26] MEDS: [UNRECOGNIZED DRUG - OTHER] GT (08:01)
[2024-01-26] MEDS: BORAGE GT (08:01)
[2024-01-26] MEDS: TEARS BOTH EYES ×2 (08:01→20:40)
[2024-01-26] MEDS: SENNOSIDES 8.6 MG TABLET GT ×2 (08:01→20:40)
[2024-01-26] MEDS: FLAX GT (08:01)
--- NOTE | 2024-01-26 11:29 | CHAP ---
Patient was visited by the Spiritual Care Volunteer who prayed for them. (Volunteer was in the hospital from 09:32-11:29).
[2024-01-27] VITALS (10 sets, daily range): BP systolic 99–126; BP diastolic 63–72; PULSE 53–98; RESP 16–22; TEMP 36.1–36.6; O2SAT 96–99
[2024-01-27] MEDS: PROPRANOLOL 10 MG TABLET 20 MG GT ×2 (05:23→21:01)
[2024-01-27] MEDS: FLAX GT (09:04)
[2024-01-27] MEDS: DEXLANSOPRAZOLE 30 MG GT (09:04)
[2024-01-27] MEDS: FISH OIL GT (09:04)
[2024-01-27] MEDS: [UNRECOGNIZED DRUG - OTHER] GT (09:04)
[2024-01-27] MEDS: BORAGE GT (09:04)
[2024-01-27] MEDS: TEARS BOTH EYES ×2 (09:04→20:47)
[2024-01-27] MEDS: [UNRECOGNIZED DRUG - OTHER] BOTH EYES ×2 (09:04→20:47)
[2024-01-27] MEDS: MULTIVIT-MIN/IRON FUM/FOLIC AC 1 EACH TABLET GT (09:05)
[2024-01-27] MEDS: SENNOSIDES 8.6 MG TABLET GT ×2 (09:05→20:47)
--- NOTE | 2024-01-27 13:41 | PC.SS ---
Room visit: Resident is laying in bed with head of the bed elevated with call light properly placed with no signs of distress. Resident remains in current care with no changes in care or condition. He has trach in place on blow by with GT for medication and nutrition. Resident is total care unable to make needs known. Resident will continue to have all subacute care needs done by staff. This SSD will make daily contact and monitor for changes in care or condition.
[2024-01-28] VITALS (12 sets, daily range): BP systolic 96–114; BP diastolic 60–70; PULSE 52–86; RESP 15–18; TEMP 36.4–36.6; O2SAT 93–98
[2024-01-28] MEDS: TEARS BOTH EYES ×2 (08:38→21:06)
[2024-01-28] MEDS: [UNRECOGNIZED DRUG - OTHER] BOTH EYES ×2 (08:38→21:06)
[2024-01-28] MEDS: [UNRECOGNIZED DRUG - OTHER] GT (08:39)
[2024-01-28] MEDS: LOSARTAN 25 MG TABLET GT (08:39)
[2024-01-28] MEDS: FLAX GT (08:39)
[2024-01-28] MEDS: BORAGE GT (08:39)
[2024-01-28] MEDS: FISH OIL GT (08:39)
[2024-01-28] MEDS: DEXLANSOPRAZOLE 30 MG GT (08:39)
[2024-01-28] MEDS: SENNOSIDES 8.6 MG TABLET GT ×2 (08:41→21:06)
[2024-01-28] MEDS: MULTIVIT-MIN/IRON FUM/FOLIC AC 1 EACH TABLET GT (08:41)
[2024-01-28] MEDS: PROPRANOLOL 10 MG TABLET 20 MG GT (14:25)
--- NOTE | 2024-01-28 21:21 | PD.SAPROG ---
Progress Note - SubAcute DIAGNOSIS (1) Traumatic brain injury: Status: Chronic (2) Anoxic brain damage, not elsewhere classified: Status: Chronic (3) Tracheostomy status: Status: Chronic (4) Gastrostomy status: Status: Chronic (5) Chronic respiratory failure: Status: Chronic SUBJECTIVE Fever:: none GI:: none Shortness of Breath:: none GI:: no complaints Pain:: none OBJECTIVE Most recent vital signs: Last Vital Signs Temp 97.5 F 01/28/24 17:43 Pulse 55 L 01/28/24 21:07 Resp 17 01/28/24 17:43 BP 98/60 01/28/24 21:07 Pulse Ox 93 L 01/28/24 17:43 O2 Del Method Blow-by 01/28/24 17:43 O2 Flow Rate 10 01/28/24 13:39 FiO2 35 01/28/24 13:39 Neurological:: awake Speech:: none Answers questions:: sometimes (Sometimes opens eyes to command.) Respiratory:: lungs clear Cardiovascular: RRR Abdomen: soft and nontender Extremities:: deformities Decubitus:: none Tracheostomy:: to blow by Feeding per:: G tube Complaints:: none ASSESSMENT & PLAN Assessment: Stable status. No improvement in cognitive function. Diagnosis and treatment reviewed. Prognosis poor. Plan: Current treatment continued as ongoing
[2024-01-29] VITALS (10 sets, daily range): BP systolic 91–126; BP diastolic 57–82; PULSE 50–73; RESP 17–22; TEMP 36.1–36.8; O2SAT 94–97
[2024-01-29] MEDS: PROPRANOLOL 10 MG TABLET 20 MG GT ×2 (05:08→13:46)
[2024-01-29] MEDS: MULTIVIT-MIN/IRON FUM/FOLIC AC 1 EACH TABLET GT (08:03)
[2024-01-29] MEDS: FLAX GT (08:03)
[2024-01-29] MEDS: TEARS BOTH EYES ×2 (08:03→20:29)
[2024-01-29] MEDS: [UNRECOGNIZED DRUG - OTHER] GT (08:03)
[2024-01-29] MEDS: FISH OIL GT (08:03)
[2024-01-29] MEDS: BORAGE GT (08:03)
[2024-01-29] MEDS: [UNRECOGNIZED DRUG - OTHER] BOTH EYES ×2 (08:03→20:29)
[2024-01-29] MEDS: LOSARTAN 25 MG TABLET GT (08:03)
[2024-01-29] MEDS: DEXLANSOPRAZOLE 30 MG GT (08:03)
[2024-01-29] MEDS: SENNOSIDES 8.6 MG TABLET GT ×2 (08:04→20:29)
[2024-01-30] VITALS (10 sets, daily range): BP systolic 92–111; BP diastolic 59–69; PULSE 50–79; RESP 17–20; TEMP 36.4–36.8; O2SAT 96–99
[2024-01-30] MEDS: PROPRANOLOL 10 MG TABLET 20 MG GT ×2 (05:05→22:00)
[2024-01-30] MEDS: [UNRECOGNIZED DRUG - OTHER] BOTH EYES ×2 (08:12→20:41)
[2024-01-30] MEDS: DEXLANSOPRAZOLE 30 MG GT (08:12)
[2024-01-30] MEDS: TEARS BOTH EYES ×2 (08:12→20:41)
[2024-01-30] MEDS: BORAGE GT (08:13)
[2024-01-30] MEDS: FISH OIL GT (08:13)
[2024-01-30] MEDS: FLAX GT (08:13)
[2024-01-30] MEDS: [UNRECOGNIZED DRUG - OTHER] GT (08:13)
[2024-01-30] MEDS: SENNOSIDES 8.6 MG TABLET GT ×2 (08:14→20:41)
[2024-01-30] MEDS: MULTIVIT-MIN/IRON FUM/FOLIC AC 1 EACH TABLET GT (08:14)
--- NOTE | 2024-01-30 15:21 | CHAP ---
10:00 AM Visited by spiritual care volunteer Provided prayer for Patient.
[2024-01-31] VITALS (10 sets, daily range): BP systolic 96–124; BP diastolic 56–69; PULSE 55–72; RESP 17–20; TEMP 36.5–36.8; O2SAT 95–100
[2024-01-31] MEDS: PROPRANOLOL 10 MG TABLET 20 MG GT (05:12)
[2024-01-31] MEDS: TEARS BOTH EYES ×2 (08:56→21:02)
[2024-01-31] MEDS: [UNRECOGNIZED DRUG - OTHER] BOTH EYES ×2 (08:56→21:02)
[2024-01-31] MEDS: DEXLANSOPRAZOLE 30 MG GT (08:56)
[2024-01-31] MEDS: FLAX GT (08:57)
[2024-01-31] MEDS: LOSARTAN 25 MG TABLET GT (08:57)
[2024-01-31] MEDS: [UNRECOGNIZED DRUG - OTHER] GT (08:57)
[2024-01-31] MEDS: BORAGE GT (08:57)
[2024-01-31] MEDS: FISH OIL GT (08:57)
[2024-01-31] MEDS: MULTIVIT-MIN/IRON FUM/FOLIC AC 1 EACH TABLET GT (08:58)
[2024-01-31] MEDS: SENNOSIDES 8.6 MG TABLET GT ×2 (08:59→21:02)
--- NOTE | 2024-01-31 12:00 | CHAP ---
Patient was visited by the Spiritual Care Volunteer who prayed for them. (Volunteer was in the hospital from 10:05-12:00)
[2024-02-01] VITALS (8 sets, daily range): BP systolic 92–132; BP diastolic 57–83; PULSE 57–85; RESP 16–18; TEMP 36.1–36.8; O2SAT 94–98
[2024-02-01] MEDS: PROPRANOLOL 10 MG TABLET 20 MG GT (05:28)
[2024-02-01] MEDS: TEARS BOTH EYES ×2 (08:27→20:48)
[2024-02-01] MEDS: LOSARTAN 25 MG TABLET GT (08:27)
[2024-02-01] MEDS: BORAGE GT (08:27)
[2024-02-01] MEDS: [UNRECOGNIZED DRUG - OTHER] BOTH EYES ×2 (08:27→20:48)
[2024-02-01] MEDS: [UNRECOGNIZED DRUG - OTHER] GT (08:27)
[2024-02-01] MEDS: MULTIVIT-MIN/IRON FUM/FOLIC AC 1 EACH TABLET GT (08:27)
[2024-02-01] MEDS: FLAX GT (08:27)
[2024-02-01] MEDS: DEXLANSOPRAZOLE 30 MG GT (08:27)
[2024-02-01] MEDS: SENNOSIDES 8.6 MG TABLET GT ×2 (08:27→20:48)
[2024-02-01] MEDS: FISH OIL GT (08:27)
--- NOTE | 2024-02-01 23:37 | PD.SAPROG ---
Progress Note - SubAcute DIAGNOSIS (1) Traumatic brain injury: Status: Chronic (2) Anoxic brain damage, not elsewhere classified: Status: Chronic (3) Tracheostomy status: Status: Chronic (4) Gastrostomy status: Status: Chronic (5) Chronic respiratory failure: Status: Chronic SUBJECTIVE Fever:: none GI:: none Shortness of Breath:: none GI:: no complaints Pain:: none OBJECTIVE Most recent vital signs: Last Vital Signs Temp 98.3 F 02/01/24 17:35 Pulse 72 02/01/24 17:35 Resp 16 02/01/24 17:35 BP 108/62 02/01/24 17:35 Pulse Ox 94 L 02/01/24 17:35 O2 Del Method Blow-by 02/01/24 17:35 O2 Flow Rate 10 02/01/24 17:35 FiO2 35 02/01/24 17:35 Neurological:: awake Speech:: none Answers questions:: sometimes (Sometimes opens eyes to command.) Respiratory:: lungs clear Cardiovascular: RRR Abdomen: soft and nontender Extremities:: deformities Decubitus:: none Tracheostomy:: to blow by Feeding per:: G tube Complaints:: none ASSESSMENT & PLAN Assessment: Stable status. No improvement in cognitive function. Diagnosis and treatment reviewed. Prognosis poor. Plan: Current treatment continued as ongoing
[2024-02-02] VITALS (9 sets, daily range): BP systolic 100–137; BP diastolic 61–75; PULSE 54–83; RESP 16–20; TEMP 36.3–36.6; O2SAT 96–99
[2024-02-02] MEDS: PROPRANOLOL 10 MG TABLET 20 MG GT ×3 (05:28→22:27)
[2024-02-02] MEDS: DEXLANSOPRAZOLE 30 MG GT (09:01)
[2024-02-02] MEDS: FISH OIL GT (09:01)
[2024-02-02] MEDS: [UNRECOGNIZED DRUG - OTHER] BOTH EYES ×2 (09:01→21:45)
[2024-02-02] MEDS: FLAX GT (09:01)
[2024-02-02] MEDS: TEARS BOTH EYES ×2 (09:01→21:45)
[2024-02-02] MEDS: [UNRECOGNIZED DRUG - OTHER] GT (09:01)
[2024-02-02] MEDS: BORAGE GT (09:01)
[2024-02-02] MEDS: MULTIVIT-MIN/IRON FUM/FOLIC AC 1 EACH TABLET GT (09:02)
[2024-02-02] MEDS: LOSARTAN 25 MG TABLET GT (09:02)
[2024-02-02] MEDS: SENNOSIDES 8.6 MG TABLET GT ×2 (09:03→21:45)
--- NOTE | 2024-02-02 11:33 | CHAP ---
Patient was visited by the Spiritual Care Volunteer who prayed for them. (Volunteer was in the hospital from 09:50-11:33)
[2024-02-03] VITALS (11 sets, daily range): BP systolic 92–126; BP diastolic 53–81; PULSE 60–79; RESP 17–21; TEMP 36.3–36.8; O2SAT 92–99
[2024-02-03] MEDS: PROPRANOLOL 10 MG TABLET 20 MG GT ×3 (05:41→21:00)
[2024-02-03] MEDS: DEXLANSOPRAZOLE 30 MG GT (08:13)
[2024-02-03] MEDS: [UNRECOGNIZED DRUG - OTHER] BOTH EYES ×2 (08:13→20:43)
[2024-02-03] MEDS: TEARS BOTH EYES ×2 (08:13→20:43)
[2024-02-03] MEDS: MULTIVIT-MIN/IRON FUM/FOLIC AC 1 EACH TABLET GT (08:13)
[2024-02-03] MEDS: FISH OIL GT (08:14)
[2024-02-03] MEDS: [UNRECOGNIZED DRUG - OTHER] GT (08:14)
[2024-02-03] MEDS: FLAX GT (08:14)
[2024-02-03] MEDS: LOSARTAN 25 MG TABLET GT (08:14)
[2024-02-03] MEDS: BORAGE GT (08:14)
[2024-02-03] MEDS: SENNOSIDES 8.6 MG TABLET GT ×2 (08:15→20:43)
[2024-02-04] VITALS (8 sets, daily range): BP systolic 96–109; BP diastolic 56–68; PULSE 57–82; RESP 17–20; TEMP 36.5–36.6; O2SAT 95–99
[2024-02-04] MEDS: PROPRANOLOL 10 MG TABLET 20 MG GT ×2 (05:41→13:41)
[2024-02-04] MEDS: FLAX GT (08:03)
[2024-02-04] MEDS: TEARS BOTH EYES ×2 (08:03→20:58)
[2024-02-04] MEDS: [UNRECOGNIZED DRUG - OTHER] BOTH EYES ×2 (08:03→20:58)
[2024-02-04] MEDS: BORAGE GT (08:03)
[2024-02-04] MEDS: [UNRECOGNIZED DRUG - OTHER] GT (08:03)
[2024-02-04] MEDS: FISH OIL GT (08:03)
[2024-02-04] MEDS: DEXLANSOPRAZOLE 30 MG GT (08:04)
[2024-02-04] MEDS: SENNOSIDES 8.6 MG TABLET GT ×2 (08:05→20:58)
[2024-02-04] MEDS: MULTIVIT-MIN/IRON FUM/FOLIC AC 1 EACH TABLET GT (08:05)
[2024-02-04] MEDS: MAGNESIUM HYDROXIDE 30 ML ORAL SUSP ML GT (23:58)
[2024-02-05] VITALS (10 sets, daily range): BP systolic 94–112; BP diastolic 55–71; PULSE 55–75; RESP 16–20; TEMP 36.4; O2SAT 96–98
[2024-02-05] MEDS: PROPRANOLOL 10 MG TABLET 20 MG GT ×3 (05:26→22:00)
[2024-02-05] MEDS: SENNOSIDES 8.6 MG TABLET GT ×2 (08:31→20:38)
[2024-02-05] MEDS: MULTIVIT-MIN/IRON FUM/FOLIC AC 1 EACH TABLET GT (08:31)
[2024-02-05] MEDS: TEARS BOTH EYES ×2 (08:40→20:38)
[2024-02-05] MEDS: [UNRECOGNIZED DRUG - OTHER] BOTH EYES ×2 (08:40→20:38)
[2024-02-05] MEDS: BORAGE GT (08:45)
[2024-02-05] MEDS: [UNRECOGNIZED DRUG - OTHER] GT (08:45)
[2024-02-05] MEDS: FLAX GT (08:45)
[2024-02-05] MEDS: DEXLANSOPRAZOLE 30 MG GT (08:45)
[2024-02-05] MEDS: FISH OIL GT (08:45)
--- NOTE | 2024-02-05 14:40 | PD.SAPROG ---
Progress Note - SubAcute DIAGNOSIS (1) Traumatic brain injury: Status: Chronic (2) Anoxic brain damage, not elsewhere classified: Status: Chronic (3) Tracheostomy status: Status: Chronic (4) Gastrostomy status: Status: Chronic (5) Chronic respiratory failure: Status: Chronic SUBJECTIVE Fever:: none GI:: none Shortness of Breath:: none GI:: no complaints Pain:: none OBJECTIVE Most recent vital signs: Last Vital Signs Temp 98.6 F 02/09/24 12:00 Pulse 65 02/09/24 13:48 Resp 17 02/09/24 12:00 BP 77/53 L 02/09/24 13:48 Pulse Ox 97 02/09/24 06:30 O2 Del Method Blow-by 02/09/24 05:51 O2 Flow Rate 10 02/09/24 06:30 FiO2 35 02/09/24 06:30 Neurological:: awake Speech:: none Answers questions:: sometimes (Sometimes opens eyes to command.) Respiratory:: lungs clear Cardiovascular: RRR Abdomen: soft and nontender Extremities:: deformities Decubitus:: none Tracheostomy:: to blow by Feeding per:: G tube Complaints:: none ASSESSMENT & PLAN Assessment: Stable status. No improvement in cognitive function. Diagnosis and treatment reviewed. Prognosis poor. Plan: Current treatment continued as ongoing
[2024-02-06] VITALS (11 sets, daily range): BP systolic 99–128; BP diastolic 53–78; PULSE 52–72; RESP 16–20; TEMP 36.3–36.9; O2SAT 92–97
[2024-02-06] MEDS: PROPRANOLOL 10 MG TABLET 20 MG GT ×2 (05:29→22:00)
[2024-02-06] MEDS: FISH OIL GT (08:34)
[2024-02-06] MEDS: TEARS BOTH EYES ×2 (08:34→21:00)
[2024-02-06] MEDS: FLAX GT (08:34)
[2024-02-06] MEDS: DEXLANSOPRAZOLE 30 MG GT (08:34)
[2024-02-06] MEDS: [UNRECOGNIZED DRUG - OTHER] BOTH EYES ×2 (08:34→21:00)
[2024-02-06] MEDS: BORAGE GT (08:34)
[2024-02-06] MEDS: [UNRECOGNIZED DRUG - OTHER] GT (08:34)
[2024-02-06] MEDS: SENNOSIDES 8.6 MG TABLET GT ×2 (08:35→21:00)
[2024-02-06] MEDS: MULTIVIT-MIN/IRON FUM/FOLIC AC 1 EACH TABLET GT (08:35)
--- NOTE | 2024-02-06 11:38 | CHAP ---
Patient was visited by Spiritual Care Volunteer who prayed for them. (Volunteer was in the hospital from 10:48-11:38)
[2024-02-07] VITALS (10 sets, daily range): BP systolic 103–116; BP diastolic 65–70; PULSE 53–74; RESP 16–18; TEMP 36.5–36.7; O2SAT 95–97
[2024-02-07] MEDS: PROPRANOLOL 10 MG TABLET 20 MG GT ×3 (06:13→21:21)
[2024-02-07] MEDS: [UNRECOGNIZED DRUG - OTHER] BOTH EYES ×2 (09:04→20:49)
[2024-02-07] MEDS: FISH OIL GT (09:04)
[2024-02-07] MEDS: [UNRECOGNIZED DRUG - OTHER] GT (09:04)
[2024-02-07] MEDS: DEXLANSOPRAZOLE 30 MG GT (09:04)
[2024-02-07] MEDS: TEARS BOTH EYES ×2 (09:04→20:49)
[2024-02-07] MEDS: BORAGE GT (09:04)
[2024-02-07] MEDS: LOSARTAN 25 MG TABLET GT (09:04)
[2024-02-07] MEDS: FLAX GT (09:04)
[2024-02-07] MEDS: SENNOSIDES 8.6 MG TABLET GT ×2 (09:05→20:49)
[2024-02-07] MEDS: MULTIVIT-MIN/IRON FUM/FOLIC AC 1 EACH TABLET GT (09:05)
--- NOTE | 2024-02-07 15:09 | PC.SS ---
Room visit: Resident is laying in bed with head of the bed elevated with call light properly placed. Resident has trach in place on blow by with GT in place for medication and nutrition. Resident is unable to make needs known as he has absence of speech. Resident daughter Arlene Hinds is decision maker. Resident will remain in current care and will continue to have all subacute care needs met by staff.
[2024-02-08] VITALS (10 sets, daily range): BP systolic 91–130; BP diastolic 59–75; PULSE 51–73; RESP 16–18; TEMP 36.3–36.7; O2SAT 93–98
[2024-02-08] MEDS: [UNRECOGNIZED DRUG - OTHER] GT (08:55)
[2024-02-08] MEDS: FLAX GT (08:55)
[2024-02-08] MEDS: FISH OIL GT (08:55)
[2024-02-08] MEDS: DEXLANSOPRAZOLE 30 MG GT (08:55)
[2024-02-08] MEDS: BORAGE GT (08:55)
[2024-02-08] MEDS: TEARS BOTH EYES ×2 (08:56→20:37)
[2024-02-08] MEDS: SENNOSIDES 8.6 MG TABLET GT ×2 (08:56→20:37)
[2024-02-08] MEDS: MULTIVIT-MIN/IRON FUM/FOLIC AC 1 EACH TABLET GT (08:56)
[2024-02-08] MEDS: [UNRECOGNIZED DRUG - OTHER] BOTH EYES ×2 (08:56→20:37)
[2024-02-09] VITALS (10 sets, daily range): BP systolic 77–112; BP diastolic 53–68; PULSE 55–78; RESP 17–19; TEMP 36.2–37; O2SAT 94–99
[2024-02-09] MEDS: [UNRECOGNIZED DRUG - OTHER] BOTH EYES ×2 (08:27→21:03)
[2024-02-09] MEDS: TEARS BOTH EYES ×2 (08:27→21:03)
[2024-02-09] MEDS: BORAGE GT (08:28)
[2024-02-09] MEDS: FISH OIL GT (08:28)
[2024-02-09] MEDS: LOSARTAN 25 MG TABLET GT (08:28)
[2024-02-09] MEDS: FLAX GT (08:28)
[2024-02-09] MEDS: [UNRECOGNIZED DRUG - OTHER] GT (08:28)
[2024-02-09] MEDS: DEXLANSOPRAZOLE 30 MG GT (08:28)
[2024-02-09] MEDS: SENNOSIDES 8.6 MG TABLET GT ×2 (08:29→21:03)
[2024-02-09] MEDS: MULTIVIT-MIN/IRON FUM/FOLIC AC 1 EACH TABLET GT (08:29)
[2024-02-10] VITALS (10 sets, daily range): BP systolic 95–128; BP diastolic 61–75; PULSE 66–91; RESP 16–18; TEMP 36.2–36.3; O2SAT 97–99
[2024-02-10] MEDS: [UNRECOGNIZED DRUG - OTHER] BOTH EYES ×2 (09:08→21:04)
[2024-02-10] MEDS: TEARS BOTH EYES ×2 (09:08→21:04)
[2024-02-10] MEDS: LOSARTAN 25 MG TABLET GT (09:08)
[2024-02-10] MEDS: BORAGE GT (09:08)
[2024-02-10] MEDS: SENNOSIDES 8.6 MG TABLET GT ×2 (09:08→21:04)
[2024-02-10] MEDS: [UNRECOGNIZED DRUG - OTHER] GT (09:08)
[2024-02-10] MEDS: FLAX GT (09:08)
[2024-02-10] MEDS: FISH OIL GT (09:08)
[2024-02-10] MEDS: MULTIVIT-MIN/IRON FUM/FOLIC AC 1 EACH TABLET GT (09:08)
[2024-02-10] MEDS: DEXLANSOPRAZOLE 30 MG GT (09:08)
[2024-02-10] MEDS: PROPRANOLOL 10 MG TABLET 20 MG GT ×2 (13:35→21:04)
[2024-02-11] VITALS (11 sets, daily range): BP systolic 94–122; BP diastolic 59–68; PULSE 61–80; RESP 17–18; TEMP 36.3–36.6; O2SAT 95–100
--- NOTE | 2024-02-11 08:24 | CHAP ---
Patient was visited by a [facility] Spiritual Care volunteer on 02/09/2024 between [id number] and [id number] and received comfort, encouragement and/or prayer.
[2024-02-11] MEDS: [UNRECOGNIZED DRUG - OTHER] BOTH EYES ×2 (09:46→20:22)
[2024-02-11] MEDS: TEARS BOTH EYES ×2 (09:46→20:22)
[2024-02-11] MEDS: DEXLANSOPRAZOLE 30 MG GT (09:52)
[2024-02-11] MEDS: [UNRECOGNIZED DRUG - OTHER] GT (09:53)
[2024-02-11] MEDS: FISH OIL GT (09:53)
[2024-02-11] MEDS: BORAGE GT (09:53)
[2024-02-11] MEDS: FLAX GT (09:53)
[2024-02-11] MEDS: LOSARTAN 25 MG TABLET GT (09:54)
[2024-02-11] MEDS: SENNOSIDES 8.6 MG TABLET GT ×2 (09:55→20:23)
[2024-02-11] MEDS: MULTIVIT-MIN/IRON FUM/FOLIC AC 1 EACH TABLET GT (09:55)
[2024-02-11] MEDS: PROPRANOLOL 10 MG TABLET 20 MG GT ×2 (14:28→21:04)
--- NOTE | 2024-02-11 22:13 | PD.SAPROG ---
Progress Note - SubAcute DIAGNOSIS (1) Traumatic brain injury: Status: Chronic (2) Anoxic brain damage, not elsewhere classified: Status: Chronic (3) Tracheostomy status: Status: Chronic (4) Gastrostomy status: Status: Chronic (5) Chronic respiratory failure: Status: Chronic SUBJECTIVE Fever:: none GI:: none Shortness of Breath:: none GI:: no complaints Pain:: none OBJECTIVE Most recent vital signs: Last Vital Signs Temp 97.7 F 02/11/24 18:00 Pulse 73 02/11/24 21:04 Resp 18 02/11/24 18:37 BP 112/64 02/11/24 21:04 Pulse Ox 95 02/11/24 18:37 O2 Del Method Blow-by 02/11/24 18:00 O2 Flow Rate 10 02/11/24 18:37 FiO2 35 02/11/24 18:37 Neurological:: awake Speech:: none Answers questions:: sometimes (Sometimes opens eyes to command.) Respiratory:: lungs clear Cardiovascular: RRR Abdomen: soft and nontender Extremities:: deformities Decubitus:: none Tracheostomy:: to blow by Feeding per:: G tube Complaints:: none ASSESSMENT & PLAN Assessment: Stable status. No improvement in cognitive function. Diagnosis and treatment reviewed. Prognosis poor. Plan: Current treatment continued as ongoing
[2024-02-12] VITALS (10 sets, daily range): BP systolic 93–111; BP diastolic 49–75; PULSE 49–76; RESP 17–18; TEMP 36.3–36.8; O2SAT 96–98
[2024-02-12] MEDS: TEARS BOTH EYES ×2 (08:32→20:28)
[2024-02-12] MEDS: [UNRECOGNIZED DRUG - OTHER] BOTH EYES ×2 (08:32→20:28)
[2024-02-12] MEDS: MULTIVIT-MIN/IRON FUM/FOLIC AC 1 EACH TABLET GT (08:33)
[2024-02-12] MEDS: DEXLANSOPRAZOLE 30 MG GT (08:33)
[2024-02-12] MEDS: [UNRECOGNIZED DRUG - OTHER] GT (08:33)
[2024-02-12] MEDS: FISH OIL GT (08:33)
[2024-02-12] MEDS: BORAGE GT (08:33)
[2024-02-12] MEDS: FLAX GT (08:33)
[2024-02-12] MEDS: SENNOSIDES 8.6 MG TABLET GT ×2 (08:34→20:28)
[2024-02-12] MEDS: PROPRANOLOL 10 MG TABLET 20 MG GT (21:27)
[2024-02-13] VITALS (9 sets, daily range): BP systolic 101–139; BP diastolic 64–80; PULSE 52–86; RESP 16–20; TEMP 36.2–36.7; O2SAT 93–99
[2024-02-13] MEDS: TEARS BOTH EYES ×2 (09:32→20:42)
[2024-02-13] MEDS: [UNRECOGNIZED DRUG - OTHER] BOTH EYES ×2 (09:32→20:42)
[2024-02-13] MEDS: DEXLANSOPRAZOLE 30 MG GT (09:33)
[2024-02-13] MEDS: LOSARTAN 25 MG TABLET GT (09:34)
[2024-02-13] MEDS: [UNRECOGNIZED DRUG - OTHER] GT (09:38)
[2024-02-13] MEDS: FLAX GT (09:38)
[2024-02-13] MEDS: BORAGE GT (09:38)
[2024-02-13] MEDS: FISH OIL GT (09:38)
[2024-02-13] MEDS: MULTIVIT-MIN/IRON FUM/FOLIC AC 1 EACH TABLET GT (09:40)
[2024-02-13] MEDS: SENNOSIDES 8.6 MG TABLET GT ×2 (09:41→20:42)
--- NOTE | 2024-02-13 11:13 | CHAP ---
Patient was visited by the Spiritual Care Volunteer who prayed for them. (Volunteer was in the hospital from 10:30-11:13)
[2024-02-13] MEDS: PROPRANOLOL 10 MG TABLET 20 MG GT ×2 (14:01→21:28)
[2024-02-13] MEDS: MAGNESIUM HYDROXIDE 30 ML ORAL SUSP ML GT (23:13)
[2024-02-14] VITALS (9 sets, daily range): BP systolic 96–127; BP diastolic 60–75; PULSE 67–79; RESP 18–21; TEMP 35.9–36.6; O2SAT 97
[2024-02-14] MEDS: PROPRANOLOL 10 MG TABLET 20 MG GT ×2 (05:08→21:03)
[2024-02-14] MEDS: [UNRECOGNIZED DRUG - OTHER] BOTH EYES ×2 (09:24→21:03)
[2024-02-14] MEDS: DEXLANSOPRAZOLE 30 MG GT (09:24)
[2024-02-14] MEDS: TEARS BOTH EYES ×2 (09:24→21:03)
[2024-02-14] MEDS: [UNRECOGNIZED DRUG - OTHER] GT (09:30)
[2024-02-14] MEDS: BORAGE GT (09:30)
[2024-02-14] MEDS: FISH OIL GT (09:30)
[2024-02-14] MEDS: FLAX GT (09:30)
[2024-02-14] MEDS: LOSARTAN 25 MG TABLET GT (09:31)
[2024-02-14] MEDS: MULTIVIT-MIN/IRON FUM/FOLIC AC 1 EACH TABLET GT (09:32)
[2024-02-14] MEDS: SENNOSIDES 8.6 MG TABLET GT ×2 (09:32→21:03)
--- NOTE | 2024-02-14 10:45 | CHAP ---
Patient was visited by the Spiritual Care Volunteer who prayed for them, (Volunteer was in the hospital from 09:50-10:45).
--- NOTE | 2024-02-14 14:25 | PC.SS ---
Room visit: Resident is laying in bed with head of the bed elevated with call light properly placed with no signs of distress. Resident remains on blow by with trach in place and GT for medication and nutrition. Resident is unable to make needs known. He continues to have all subacute care needs met by staff. Resident is not showing any changes in mood or behavior. Will remain in current care as he is not ready for DC he will continue to be evaluated as appropriate for DC to lower level of care.
[2024-02-15] VITALS (12 sets, daily range): BP systolic 99–123; BP diastolic 63–81; PULSE 58–79; RESP 16–20; TEMP 36.2–36.7; O2SAT 93–97
[2024-02-15] MEDS: TEARS BOTH EYES ×2 (08:18→21:14)
[2024-02-15] MEDS: LOSARTAN 25 MG TABLET GT (08:18)
[2024-02-15] MEDS: FLAX GT (08:18)
[2024-02-15] MEDS: [UNRECOGNIZED DRUG - OTHER] BOTH EYES ×2 (08:18→21:14)
[2024-02-15] MEDS: BORAGE GT (08:18)
[2024-02-15] MEDS: FISH OIL GT (08:18)
[2024-02-15] MEDS: [UNRECOGNIZED DRUG - OTHER] GT (08:18)
[2024-02-15] MEDS: DEXLANSOPRAZOLE 30 MG GT (08:18)
[2024-02-15] MEDS: MULTIVIT-MIN/IRON FUM/FOLIC AC 1 EACH TABLET GT (08:18)
[2024-02-15] MEDS: SENNOSIDES 8.6 MG TABLET GT ×2 (08:19→21:14)
[2024-02-15] MEDS: PROPRANOLOL 10 MG TABLET 20 MG GT (13:44)
--- NOTE | 2024-02-15 21:51 | PD.SAPROG ---
Progress Note - SubAcute DIAGNOSIS (1) Traumatic brain injury: Status: Chronic (2) Anoxic brain damage, not elsewhere classified: Status: Chronic (3) Tracheostomy status: Status: Chronic (4) Gastrostomy status: Status: Chronic (5) Chronic respiratory failure: Status: Chronic SUBJECTIVE Fever:: none GI:: none Shortness of Breath:: none GI:: no complaints Pain:: none OBJECTIVE Most recent vital signs: Last Vital Signs Temp 97.2 F 02/15/24 18:00 Pulse 69 02/15/24 21:15 Resp 20 02/15/24 18:00 BP 99/63 02/15/24 21:15 Pulse Ox 97 02/15/24 06:30 O2 Del Method Blow-by 02/15/24 05:55 O2 Flow Rate 10 02/15/24 06:30 FiO2 35 02/15/24 06:30 Neurological:: awake Speech:: none Answers questions:: sometimes (Sometimes opens eyes to command.) Respiratory:: lungs clear Cardiovascular: RRR Abdomen: soft and nontender Extremities:: deformities Decubitus:: none Tracheostomy:: to blow by Feeding per:: G tube Complaints:: none ASSESSMENT & PLAN Assessment: Stable status. No improvement in cognitive function. Diagnosis and treatment reviewed. Prognosis poor. Plan: Current treatment continued as ongoing
[2024-02-16] VITALS (8 sets, daily range): BP systolic 102–137; BP diastolic 66–78; PULSE 67–75; RESP 18–21; TEMP 36.2–36.6; O2SAT 95–97
[2024-02-16] MEDS: PROPRANOLOL 10 MG TABLET 20 MG GT ×3 (05:16→21:06)
[2024-02-16] MEDS: BORAGE GT (09:18)
[2024-02-16] MEDS: [UNRECOGNIZED DRUG - OTHER] GT (09:18)
[2024-02-16] MEDS: LOSARTAN 25 MG TABLET GT (09:18)
[2024-02-16] MEDS: TEARS BOTH EYES ×2 (09:18→21:05)
[2024-02-16] MEDS: FISH OIL GT (09:18)
[2024-02-16] MEDS: SENNOSIDES 8.6 MG TABLET GT ×2 (09:18→21:05)
[2024-02-16] MEDS: MULTIVIT-MIN/IRON FUM/FOLIC AC 1 EACH TABLET GT (09:18)
[2024-02-16] MEDS: [UNRECOGNIZED DRUG - OTHER] BOTH EYES ×2 (09:18→21:05)
[2024-02-16] MEDS: FLAX GT (09:18)
[2024-02-16] MEDS: DEXLANSOPRAZOLE 30 MG GT (09:18)
[2024-02-17] VITALS (12 sets, daily range): BP systolic 103–120; BP diastolic 55–77; PULSE 60–88; RESP 17–22; TEMP 36–36.7; O2SAT 94–98
[2024-02-17] MEDS: PROPRANOLOL 10 MG TABLET 20 MG GT ×3 (05:39→21:15)
[2024-02-17] MEDS: TEARS BOTH EYES ×2 (08:18→20:37)
[2024-02-17] MEDS: [UNRECOGNIZED DRUG - OTHER] BOTH EYES ×2 (08:18→20:37)
[2024-02-17] MEDS: [UNRECOGNIZED DRUG - OTHER] GT (08:19)
[2024-02-17] MEDS: FLAX GT (08:19)
[2024-02-17] MEDS: DEXLANSOPRAZOLE 30 MG GT (08:19)
[2024-02-17] MEDS: BORAGE GT (08:19)
[2024-02-17] MEDS: LOSARTAN 25 MG TABLET GT (08:19)
[2024-02-17] MEDS: FISH OIL GT (08:19)
[2024-02-17] MEDS: MULTIVIT-MIN/IRON FUM/FOLIC AC 1 EACH TABLET GT (08:20)
[2024-02-17] MEDS: SENNOSIDES 8.6 MG TABLET GT ×2 (08:20→20:37)
[2024-02-18] VITALS (10 sets, daily range): BP systolic 96–115; BP diastolic 62–73; PULSE 59–88; RESP 18–22; TEMP 36.1–36.7; O2SAT 95–100
[2024-02-18] MEDS: TEARS BOTH EYES ×2 (08:49→20:25)
[2024-02-18] MEDS: [UNRECOGNIZED DRUG - OTHER] BOTH EYES ×2 (08:49→20:25)
[2024-02-18] MEDS: DEXLANSOPRAZOLE 30 MG GT (08:50)
[2024-02-18] MEDS: FLAX GT (08:50)
[2024-02-18] MEDS: BORAGE GT (08:50)
[2024-02-18] MEDS: FISH OIL GT (08:50)
[2024-02-18] MEDS: MULTIVIT-MIN/IRON FUM/FOLIC AC 1 EACH TABLET GT (08:50)
[2024-02-18] MEDS: [UNRECOGNIZED DRUG - OTHER] GT (08:50)
[2024-02-18] MEDS: LOSARTAN 25 MG TABLET GT (08:50)
[2024-02-18] MEDS: SENNOSIDES 8.6 MG TABLET GT ×2 (08:51→20:25)
[2024-02-18] MEDS: PROPRANOLOL 10 MG TABLET 20 MG GT (21:37)
[2024-02-19] VITALS (10 sets, daily range): BP systolic 98–124; BP diastolic 59–74; PULSE 55–84; RESP 18–20; TEMP 35.9–36.4; O2SAT 95–99
[2024-02-19] MEDS: PROPRANOLOL 10 MG TABLET 20 MG GT ×3 (05:08→21:03)
[2024-02-19] MEDS: TEARS BOTH EYES ×2 (08:56→20:17)
[2024-02-19] MEDS: DEXLANSOPRAZOLE 30 MG GT (08:56)
[2024-02-19] MEDS: BORAGE GT (08:56)
[2024-02-19] MEDS: [UNRECOGNIZED DRUG - OTHER] GT (08:56)
[2024-02-19] MEDS: [UNRECOGNIZED DRUG - OTHER] BOTH EYES ×2 (08:56→20:17)
[2024-02-19] MEDS: FISH OIL GT (08:56)
[2024-02-19] MEDS: FLAX GT (08:56)
[2024-02-19] MEDS: MULTIVIT-MIN/IRON FUM/FOLIC AC 1 EACH TABLET GT (08:57)
[2024-02-19] MEDS: SENNOSIDES 8.6 MG TABLET GT ×2 (08:57→20:17)
[2024-02-19] MEDS: LOSARTAN 25 MG TABLET GT (08:57)
--- NOTE | 2024-02-19 22:38 | PD.SAPROG ---
Progress Note - SubAcute DIAGNOSIS (1) Traumatic brain injury: Status: Chronic (2) Anoxic brain damage, not elsewhere classified: Status: Chronic (3) Tracheostomy status: Status: Chronic (4) Gastrostomy status: Status: Chronic (5) Chronic respiratory failure: Status: Chronic SUBJECTIVE Fever:: none GI:: none Shortness of Breath:: none GI:: no complaints Pain:: none OBJECTIVE Most recent vital signs: Last Vital Signs Temp 96.7 F L 02/19/24 12:00 Pulse 69 02/19/24 21:03 Resp 20 02/19/24 19:26 BP 114/74 02/19/24 21:03 Pulse Ox 96 02/19/24 19:26 O2 Del Method Blow-by 02/19/24 05:37 O2 Flow Rate 10 02/19/24 19:26 FiO2 35 02/19/24 19:26 Neurological:: awake Speech:: none Answers questions:: sometimes (Sometimes opens eyes to command.) Respiratory:: lungs clear Cardiovascular: RRR Abdomen: soft and nontender Extremities:: deformities Decubitus:: none Tracheostomy:: to blow by Feeding per:: G tube Complaints:: none ASSESSMENT & PLAN Assessment: Stable status. No improvement in cognitive function. Diagnosis and treatment reviewed. Prognosis poor. Plan: Current treatment continued as ongoing
[2024-02-20] VITALS (10 sets, daily range): BP systolic 93–108; BP diastolic 62–70; PULSE 54–83; RESP 17–21; TEMP 36.3–36.4; O2SAT 94–99
[2024-02-20] MEDS: TEARS BOTH EYES ×2 (09:08→21:18)
[2024-02-20] MEDS: DEXLANSOPRAZOLE 30 MG GT (09:08)
[2024-02-20] MEDS: SENNOSIDES 8.6 MG TABLET GT ×2 (09:08→21:18)
[2024-02-20] MEDS: [UNRECOGNIZED DRUG - OTHER] BOTH EYES ×2 (09:08→21:18)
[2024-02-20] MEDS: FISH OIL GT (09:09)
[2024-02-20] MEDS: [UNRECOGNIZED DRUG - OTHER] GT (09:09)
[2024-02-20] MEDS: FLAX GT (09:09)
[2024-02-20] MEDS: BORAGE GT (09:09)
[2024-02-20] MEDS: MULTIVIT-MIN/IRON FUM/FOLIC AC 1 EACH TABLET GT (09:10)
[2024-02-20] MEDS: PROPRANOLOL 10 MG TABLET 20 MG GT (15:29)
[2024-02-20] MEDS: MAGNESIUM HYDROXIDE 30 ML ORAL SUSP ML GT (21:19)
[2024-02-21] VITALS (10 sets, daily range): BP systolic 97–129; BP diastolic 63–77; PULSE 59–76; RESP 18–19; TEMP 36.1–36.7; O2SAT 94–98
[2024-02-21] MEDS: PROPRANOLOL 10 MG TABLET 20 MG GT (05:41)
[2024-02-21] MEDS: DEXLANSOPRAZOLE 30 MG GT (09:19)
[2024-02-21] MEDS: FISH OIL GT (09:19)
[2024-02-21] MEDS: [UNRECOGNIZED DRUG - OTHER] BOTH EYES ×2 (09:19→20:58)
[2024-02-21] MEDS: BORAGE GT (09:19)
[2024-02-21] MEDS: LOSARTAN 25 MG TABLET GT (09:19)
[2024-02-21] MEDS: MULTIVIT-MIN/IRON FUM/FOLIC AC 1 EACH TABLET GT (09:19)
[2024-02-21] MEDS: TEARS BOTH EYES ×2 (09:19→20:58)
[2024-02-21] MEDS: [UNRECOGNIZED DRUG - OTHER] GT (09:19)
[2024-02-21] MEDS: FLAX GT (09:19)
[2024-02-21] MEDS: SENNOSIDES 8.6 MG TABLET GT ×2 (09:20→20:58)
--- NOTE | 2024-02-21 14:22 | PC.SS ---
Room visit: Resident is laying in bed with head of the bed elevated with call light properly placed with no signs of distress. Resident remains on blow by with trach in place and GT for medication and nutrition. Resident is unable to make needs known, his daughter Arlene Hinds is his decision maker. Currently family are here for a visit. Resident will remain in current care and will continue to have all subacute care needs met by staff.
[2024-02-22] VITALS (10 sets, daily range): BP systolic 101–136; BP diastolic 64–76; PULSE 58–94; RESP 16–20; TEMP 36.6–36.9; O2SAT 95–98
[2024-02-22] MEDS: LOSARTAN 25 MG TABLET GT (08:29)
[2024-02-22] MEDS: [UNRECOGNIZED DRUG - OTHER] GT (08:30)
[2024-02-22] MEDS: TEARS BOTH EYES ×2 (08:30→22:00)
[2024-02-22] MEDS: DEXLANSOPRAZOLE 30 MG GT (08:30)
[2024-02-22] MEDS: [UNRECOGNIZED DRUG - OTHER] BOTH EYES ×2 (08:30→22:00)
[2024-02-22] MEDS: BORAGE GT (08:30)
[2024-02-22] MEDS: FLAX GT (08:30)
[2024-02-22] MEDS: FISH OIL GT (08:30)
[2024-02-22] MEDS: SENNOSIDES 8.6 MG TABLET GT ×2 (08:31→22:00)
[2024-02-22] MEDS: MULTIVIT-MIN/IRON FUM/FOLIC AC 1 EACH TABLET GT (08:31)
[2024-02-22] MEDS: PROPRANOLOL 10 MG TABLET 20 MG GT ×2 (13:19→22:04)
[2024-02-23] VITALS (10 sets, daily range): BP systolic 94–126; BP diastolic 60–74; PULSE 58–80; RESP 17–20; TEMP 36.3–36.8; O2SAT 96–98
[2024-02-23] MEDS: TEARS BOTH EYES ×2 (10:15→21:12)
[2024-02-23] MEDS: DEXLANSOPRAZOLE 30 MG GT (10:15)
[2024-02-23] MEDS: BORAGE GT (10:15)
[2024-02-23] MEDS: [UNRECOGNIZED DRUG - OTHER] BOTH EYES ×2 (10:15→21:12)
[2024-02-23] MEDS: [UNRECOGNIZED DRUG - OTHER] GT (10:15)
[2024-02-23] MEDS: FISH OIL GT (10:15)
[2024-02-23] MEDS: FLAX GT (10:15)
[2024-02-23] MEDS: MULTIVIT-MIN/IRON FUM/FOLIC AC 1 EACH TABLET GT (10:16)
[2024-02-23] MEDS: SENNOSIDES 8.6 MG TABLET GT ×2 (10:16→21:13)
[2024-02-23] MEDS: PROPRANOLOL 10 MG TABLET 20 MG GT (13:21)
--- NOTE | 2024-02-23 14:25 | PD.SAPROG ---
Progress Note - SubAcute DIAGNOSIS (1) Traumatic brain injury: Status: Chronic (2) Anoxic brain damage, not elsewhere classified: Status: Chronic (3) Tracheostomy status: Status: Chronic (4) Gastrostomy status: Status: Chronic (5) Chronic respiratory failure: Status: Chronic SUBJECTIVE Fever:: none GI:: none Shortness of Breath:: none GI:: no complaints Pain:: none OBJECTIVE Most recent vital signs: Last Vital Signs Temp 97.4 F 02/27/24 12:00 Pulse 64 02/27/24 14:41 Resp 18 02/27/24 12:00 BP 114/78 02/27/24 14:41 Pulse Ox 94 L 02/27/24 06:33 O2 Del Method Blow-by 02/25/24 06:00 O2 Flow Rate 10 02/27/24 06:33 FiO2 35 02/27/24 06:33 Neurological:: awake Speech:: none Answers questions:: sometimes (Sometimes opens eyes to command.) Respiratory:: lungs clear Cardiovascular: RRR Abdomen: soft and nontender Extremities:: deformities Decubitus:: none Tracheostomy:: to blow by Feeding per:: G tube Complaints:: none ASSESSMENT & PLAN Assessment: Stable status. No improvement in cognitive function. Diagnosis and treatment reviewed. Prognosis poor. Plan: Current treatment continued as ongoing
[2024-02-24] VITALS (10 sets, daily range): BP systolic 100–127; BP diastolic 66–82; PULSE 62–72; RESP 17–19; TEMP 35.9–36.4; O2SAT 95–97
[2024-02-24] MEDS: PROPRANOLOL 10 MG TABLET 20 MG GT ×3 (05:13→22:23)
[2024-02-24] MEDS: FISH OIL GT (09:12)
[2024-02-24] MEDS: [UNRECOGNIZED DRUG - OTHER] BOTH EYES ×2 (09:12→22:22)
[2024-02-24] MEDS: TEARS BOTH EYES ×2 (09:12→22:22)
[2024-02-24] MEDS: [UNRECOGNIZED DRUG - OTHER] GT (09:12)
[2024-02-24] MEDS: BORAGE GT (09:12)
[2024-02-24] MEDS: DEXLANSOPRAZOLE 30 MG GT (09:12)
[2024-02-24] MEDS: FLAX GT (09:12)
[2024-02-24] MEDS: SENNOSIDES 8.6 MG TABLET GT ×2 (09:14→22:22)
[2024-02-24] MEDS: MULTIVIT-MIN/IRON FUM/FOLIC AC 1 EACH TABLET GT (09:14)
[2024-02-25] VITALS (7 sets, daily range): BP systolic 92–117; BP diastolic 57–77; PULSE 51–72; RESP 18–20; TEMP 36.1–36.4; O2SAT 98–99
[2024-02-25] MEDS: PROPRANOLOL 10 MG TABLET 20 MG GT (06:01)
[2024-02-25] MEDS: BORAGE GT (09:30)
[2024-02-25] MEDS: DEXLANSOPRAZOLE 30 MG GT (09:30)
[2024-02-25] MEDS: [UNRECOGNIZED DRUG - OTHER] GT (09:30)
[2024-02-25] MEDS: [UNRECOGNIZED DRUG - OTHER] BOTH EYES (09:30)
[2024-02-25] MEDS: FISH OIL GT (09:30)
[2024-02-25] MEDS: TEARS BOTH EYES (09:30)
[2024-02-25] MEDS: FLAX GT (09:30)
[2024-02-25] MEDS: MULTIVIT-MIN/IRON FUM/FOLIC AC 1 EACH TABLET GT (09:31)
[2024-02-25] MEDS: SENNOSIDES 8.6 MG TABLET GT (09:31)
[2024-02-26] VITALS (11 sets, daily range): BP systolic 96–130; BP diastolic 61–82; PULSE 56–78; RESP 17–20; TEMP 36.2–36.5; O2SAT 97–99
[2024-02-26] MEDS: [UNRECOGNIZED DRUG - OTHER] BOTH EYES ×3 (00:05→20:55)
[2024-02-26] MEDS: TEARS BOTH EYES ×3 (00:05→20:55)
[2024-02-26] MEDS: SENNOSIDES 8.6 MG TABLET GT ×3 (00:06→20:56)
[2024-02-26] MEDS: PROPRANOLOL 10 MG TABLET 20 MG GT ×4 (00:09→22:00)
[2024-02-26] MEDS: DEXLANSOPRAZOLE 30 MG GT (08:58)
[2024-02-26] MEDS: FISH OIL GT (08:58)
[2024-02-26] MEDS: FLAX GT (08:58)
[2024-02-26] MEDS: BORAGE GT (08:58)
[2024-02-26] MEDS: [UNRECOGNIZED DRUG - OTHER] GT (08:58)
[2024-02-27] VITALS (9 sets, daily range): BP systolic 103–116; BP diastolic 63–78; PULSE 54–76; RESP 16–18; TEMP 36.1–36.6; O2SAT 94–96
[2024-02-27] MEDS: [UNRECOGNIZED DRUG - OTHER] BOTH EYES ×2 (09:07→20:57)
[2024-02-27] MEDS: BORAGE GT (09:07)
[2024-02-27] MEDS: FLAX GT (09:07)
[2024-02-27] MEDS: MULTIVIT-MIN/IRON FUM/FOLIC AC 1 EACH TABLET GT (09:07)
[2024-02-27] MEDS: FISH OIL GT (09:07)
[2024-02-27] MEDS: TEARS BOTH EYES ×2 (09:07→20:57)
[2024-02-27] MEDS: [UNRECOGNIZED DRUG - OTHER] GT (09:07)
[2024-02-27] MEDS: DEXLANSOPRAZOLE 30 MG GT (09:07)
[2024-02-27] MEDS: SENNOSIDES 8.6 MG TABLET GT ×2 (09:08→20:57)
[2024-02-27] MEDS: PROPRANOLOL 10 MG TABLET 20 MG GT ×2 (14:41→22:00)
[2024-02-28] VITALS (9 sets, daily range): BP systolic 83–124; BP diastolic 57–78; PULSE 54–77; RESP 17–20; TEMP 36.4; O2SAT 96–97
[2024-02-28] MEDS: PROPRANOLOL 10 MG TABLET 20 MG GT ×2 (06:27→22:00)
[2024-02-28] MEDS: DEXLANSOPRAZOLE 30 MG GT (09:25)
[2024-02-28] MEDS: [UNRECOGNIZED DRUG - OTHER] GT (09:26)
[2024-02-28] MEDS: MULTIVIT-MIN/IRON FUM/FOLIC AC 1 EACH TABLET GT (09:26)
[2024-02-28] MEDS: FISH OIL GT (09:26)
[2024-02-28] MEDS: SENNOSIDES 8.6 MG TABLET GT ×2 (09:26→20:34)
[2024-02-28] MEDS: LOSARTAN 25 MG TABLET GT (09:26)
[2024-02-28] MEDS: BORAGE GT (09:26)
[2024-02-28] MEDS: FLAX GT (09:26)
[2024-02-28] MEDS: [UNRECOGNIZED DRUG - OTHER] BOTH EYES ×2 (09:27→20:34)
[2024-02-28] MEDS: TEARS BOTH EYES ×2 (09:27→20:34)
[2024-02-29] VITALS (10 sets, daily range): BP systolic 83–126; BP diastolic 53–76; PULSE 55–76; RESP 18–20; TEMP 36.1–36.2; O2SAT 94–99
[2024-02-29] MEDS: PROPRANOLOL 10 MG TABLET 20 MG GT ×3 (05:10→21:13)
[2024-02-29] MEDS: [UNRECOGNIZED DRUG - OTHER] BOTH EYES ×2 (08:46→21:01)
[2024-02-29] MEDS: BORAGE GT (08:46)
[2024-02-29] MEDS: FLAX GT (08:46)
[2024-02-29] MEDS: TEARS BOTH EYES ×2 (08:46→21:01)
[2024-02-29] MEDS: FISH OIL GT (08:46)
[2024-02-29] MEDS: DEXLANSOPRAZOLE 30 MG GT (08:46)
[2024-02-29] MEDS: [UNRECOGNIZED DRUG - OTHER] GT (08:46)
[2024-02-29] MEDS: MULTIVIT-MIN/IRON FUM/FOLIC AC 1 EACH TABLET GT (08:47)
[2024-02-29] MEDS: SENNOSIDES 8.6 MG TABLET GT ×2 (08:47→21:02)
[2024-03-01] VITALS (11 sets, daily range): BP systolic 108–122; BP diastolic 64–77; PULSE 54–76; RESP 17–20; TEMP 36.1–36.7; O2SAT 96–98
[2024-03-01] MEDS: PROPRANOLOL 10 MG TABLET 20 MG GT ×3 (05:31→21:34)
[2024-03-01] MEDS: TEARS BOTH EYES ×2 (09:46→20:48)
[2024-03-01] MEDS: FLAX GT (09:46)
[2024-03-01] MEDS: [UNRECOGNIZED DRUG - OTHER] GT (09:46)
[2024-03-01] MEDS: DEXLANSOPRAZOLE 30 MG GT (09:46)
[2024-03-01] MEDS: LOSARTAN 25 MG TABLET GT (09:46)
[2024-03-01] MEDS: [UNRECOGNIZED DRUG - OTHER] BOTH EYES ×2 (09:46→20:48)
[2024-03-01] MEDS: BORAGE GT (09:46)
[2024-03-01] MEDS: FISH OIL GT (09:46)
[2024-03-01] MEDS: SENNOSIDES 8.6 MG TABLET GT ×2 (09:47→20:49)
[2024-03-01] MEDS: MULTIVIT-MIN/IRON FUM/FOLIC AC 1 EACH TABLET GT (09:47)
[2024-03-02] VITALS (11 sets, daily range): BP systolic 99–113; BP diastolic 52–72; PULSE 60–87; RESP 16–19; TEMP 36.2–36.3; O2SAT 98–99
[2024-03-02] MEDS: TEARS BOTH EYES ×2 (09:22→21:13)
[2024-03-02] MEDS: [UNRECOGNIZED DRUG - OTHER] GT (09:22)
[2024-03-02] MEDS: DEXLANSOPRAZOLE 30 MG GT (09:22)
[2024-03-02] MEDS: [UNRECOGNIZED DRUG - OTHER] BOTH EYES ×2 (09:22→21:13)
[2024-03-02] MEDS: BORAGE GT (09:22)
[2024-03-02] MEDS: FISH OIL GT (09:22)
[2024-03-02] MEDS: FLAX GT (09:22)
[2024-03-02] MEDS: MULTIVIT-MIN/IRON FUM/FOLIC AC 1 EACH TABLET GT (09:23)
[2024-03-02] MEDS: SENNOSIDES 8.6 MG TABLET GT ×2 (09:23→21:13)
--- NOTE | 2024-03-02 12:03 | PC.SS ---
Resident seen by chief counsel/Dr. Thomason for routine nail trim. Resident tolerated treatment well, no new orders or recommendations resident to continue current care.
[2024-03-02] MEDS: PROPRANOLOL 10 MG TABLET 20 MG GT ×2 (14:08→21:11)
--- NOTE | 2024-03-02 22:23 | PD.SAPROG ---
Progress Note - SubAcute DIAGNOSIS (1) Traumatic brain injury: Status: Chronic (2) Anoxic brain damage, not elsewhere classified: Status: Chronic (3) Tracheostomy status: Status: Chronic (4) Gastrostomy status: Status: Chronic (5) Chronic respiratory failure: Status: Chronic SUBJECTIVE Fever:: none GI:: none Shortness of Breath:: none GI:: no complaints Pain:: none OBJECTIVE Most recent vital signs: Last Vital Signs Temp 97.4 F 03/02/24 18:00 Pulse 63 03/02/24 21:11 Resp 19 03/02/24 18:00 BP 113/68 03/02/24 21:11 Pulse Ox 98 03/02/24 12:00 O2 Del Method Blow-by 03/01/24 05:44 O2 Flow Rate 10 03/02/24 06:35 FiO2 35 03/02/24 06:35 Neurological:: awake Speech:: none Answers questions:: sometimes (Sometimes opens eyes to command.) Respiratory:: lungs clear Cardiovascular: RRR Abdomen: soft and nontender Extremities:: deformities Decubitus:: none Tracheostomy:: to blow by Feeding per:: G tube Complaints:: none ASSESSMENT & PLAN Assessment: Stable status. No improvement in cognitive function. Diagnosis and treatment reviewed. Prognosis poor. Plan: Current treatment continued as ongoing
[2024-03-03] VITALS (9 sets, daily range): BP systolic 104–124; BP diastolic 63–81; PULSE 59–75; RESP 18–20; TEMP 36.2–36.4; O2SAT 97–99
[2024-03-03] MEDS: PROPRANOLOL 10 MG TABLET 20 MG GT ×3 (05:28→20:39)
[2024-03-03] MEDS: [UNRECOGNIZED DRUG - OTHER] BOTH EYES ×2 (08:42→20:39)
[2024-03-03] MEDS: TEARS BOTH EYES ×2 (08:42→20:39)
[2024-03-03] MEDS: BORAGE GT (08:45)
[2024-03-03] MEDS: FISH OIL GT (08:45)
[2024-03-03] MEDS: [UNRECOGNIZED DRUG - OTHER] GT (08:45)
[2024-03-03] MEDS: FLAX GT (08:45)
[2024-03-03] MEDS: DEXLANSOPRAZOLE 30 MG GT (08:45)
[2024-03-03] MEDS: MULTIVIT-MIN/IRON FUM/FOLIC AC 1 EACH TABLET GT (08:46)
[2024-03-03] MEDS: SENNOSIDES 8.6 MG TABLET GT ×2 (08:46→20:39)
[2024-03-03] MEDS: LOSARTAN 25 MG TABLET GT (08:46)
[2024-03-04] VITALS (10 sets, daily range): BP systolic 94–133; BP diastolic 55–86; PULSE 52–77; RESP 18–22; TEMP 36.4–36.7; O2SAT 94–98
[2024-03-04] MEDS: PROPRANOLOL 10 MG TABLET 20 MG GT ×3 (05:13→22:17)
[2024-03-04] MEDS: FISH OIL GT (09:14)
[2024-03-04] MEDS: FLAX GT (09:14)
[2024-03-04] MEDS: TEARS BOTH EYES ×2 (09:14→20:44)
[2024-03-04] MEDS: [UNRECOGNIZED DRUG - OTHER] BOTH EYES ×2 (09:14→20:44)
[2024-03-04] MEDS: BORAGE GT (09:14)
[2024-03-04] MEDS: [UNRECOGNIZED DRUG - OTHER] GT (09:14)
[2024-03-04] MEDS: DEXLANSOPRAZOLE 30 MG GT (09:14)
[2024-03-04] MEDS: SENNOSIDES 8.6 MG TABLET GT ×2 (09:15→20:44)
[2024-03-05] VITALS (10 sets, daily range): BP systolic 99–125; BP diastolic 56–78; PULSE 53–82; RESP 18–20; TEMP 36.1–36.4; O2SAT 96–98
[2024-03-05] MEDS: PROPRANOLOL 10 MG TABLET 20 MG GT ×3 (05:42→21:28)
[2024-03-05] MEDS: LOSARTAN 25 MG TABLET GT (08:14)
[2024-03-05] MEDS: FISH OIL GT (08:14)
[2024-03-05] MEDS: TEARS BOTH EYES ×2 (08:14→20:48)
[2024-03-05] MEDS: [UNRECOGNIZED DRUG - OTHER] GT (08:14)
[2024-03-05] MEDS: BORAGE GT (08:14)
[2024-03-05] MEDS: [UNRECOGNIZED DRUG - OTHER] BOTH EYES ×2 (08:14→20:48)
[2024-03-05] MEDS: DEXLANSOPRAZOLE 30 MG GT (08:14)
[2024-03-05] MEDS: FLAX GT (08:14)
[2024-03-05] MEDS: SENNOSIDES 8.6 MG TABLET GT ×2 (08:15→20:48)
[2024-03-05] MEDS: MULTIVIT-MIN/IRON FUM/FOLIC AC 1 EACH TABLET GT (08:15)
[2024-03-06] VITALS (10 sets, daily range): BP systolic 93–117; BP diastolic 57–80; PULSE 59–76; RESP 18–20; TEMP 36.2–36.3; O2SAT 96–99
[2024-03-06] MEDS: PROPRANOLOL 10 MG TABLET 20 MG GT ×3 (05:17→20:57)
[2024-03-06] MEDS: LOSARTAN 25 MG TABLET GT (09:00)
[2024-03-06] MEDS: [UNRECOGNIZED DRUG - OTHER] BOTH EYES ×2 (09:00→20:56)
[2024-03-06] MEDS: DEXLANSOPRAZOLE 30 MG GT (09:00)
[2024-03-06] MEDS: FISH OIL GT (09:00)
[2024-03-06] MEDS: [UNRECOGNIZED DRUG - OTHER] GT (09:00)
[2024-03-06] MEDS: TEARS BOTH EYES ×2 (09:00→20:56)
[2024-03-06] MEDS: FLAX GT (09:00)
[2024-03-06] MEDS: BORAGE GT (09:00)
[2024-03-06] MEDS: MULTIVIT-MIN/IRON FUM/FOLIC AC 1 EACH TABLET GT (09:01)
[2024-03-06] MEDS: SENNOSIDES 8.6 MG TABLET GT ×2 (09:01→20:57)
--- NOTE | 2024-03-06 14:15 | PD.SAPROG ---
Progress Note - SubAcute DIAGNOSIS (1) Traumatic brain injury: Status: Chronic (2) Anoxic brain damage, not elsewhere classified: Status: Chronic (3) Tracheostomy status: Status: Chronic (4) Gastrostomy status: Status: Chronic (5) Chronic respiratory failure: Status: Chronic SUBJECTIVE Fever:: none GI:: none Shortness of Breath:: none GI:: no complaints Pain:: none OBJECTIVE Most recent vital signs: Last Vital Signs Temp 97.6 F 03/08/24 06:00 Pulse 56 L 03/08/24 08:52 Resp 18 03/08/24 06:49 BP 114/67 03/08/24 08:52 Pulse Ox 98 03/08/24 06:49 O2 Del Method Blow-by 03/08/24 06:00 O2 Flow Rate 10 03/08/24 06:49 FiO2 35 03/08/24 06:49 Neurological:: awake Speech:: none Answers questions:: sometimes (Sometimes opens eyes to command.) Respiratory:: lungs clear Cardiovascular: RRR Abdomen: soft and nontender Extremities:: deformities Decubitus:: none Tracheostomy:: to blow by Feeding per:: G tube Complaints:: none ASSESSMENT & PLAN Assessment: Stable status. No improvement in cognitive function. Diagnosis and treatment reviewed. Prognosis poor. Plan: Current treatment continued as ongoing
[2024-03-07] VITALS (11 sets, daily range): BP systolic 97–130; BP diastolic 58–74; PULSE 57–86; RESP 16–20; TEMP 36.2–36.7; O2SAT 93–98
[2024-03-07] MEDS: [UNRECOGNIZED DRUG - OTHER] BOTH EYES ×2 (08:15→20:12)
[2024-03-07] MEDS: FISH OIL GT (08:15)
[2024-03-07] MEDS: FLAX GT (08:15)
[2024-03-07] MEDS: [UNRECOGNIZED DRUG - OTHER] GT (08:15)
[2024-03-07] MEDS: DEXLANSOPRAZOLE 30 MG GT (08:15)
[2024-03-07] MEDS: TEARS BOTH EYES ×2 (08:15→20:12)
[2024-03-07] MEDS: BORAGE GT (08:15)
[2024-03-07] MEDS: MULTIVIT-MIN/IRON FUM/FOLIC AC 1 EACH TABLET GT (08:16)
[2024-03-07] MEDS: SENNOSIDES 8.6 MG TABLET GT ×2 (08:16→20:12)
[2024-03-07] MEDS: PROPRANOLOL 10 MG TABLET 20 MG GT ×2 (14:13→21:09)
[2024-03-08] VITALS (9 sets, daily range): BP systolic 90–129; BP diastolic 62–76; PULSE 53–82; RESP 16–18; TEMP 36.3–36.4; O2SAT 96–99
[2024-03-08] MEDS: PROPRANOLOL 10 MG TABLET 20 MG GT ×2 (05:20→14:55)
[2024-03-08] MEDS: FISH OIL GT (08:51)
[2024-03-08] MEDS: DEXLANSOPRAZOLE 30 MG GT (08:51)
[2024-03-08] MEDS: BORAGE GT (08:51)
[2024-03-08] MEDS: [UNRECOGNIZED DRUG - OTHER] GT (08:51)
[2024-03-08] MEDS: TEARS BOTH EYES ×2 (08:51→20:48)
[2024-03-08] MEDS: FLAX GT (08:51)
[2024-03-08] MEDS: [UNRECOGNIZED DRUG - OTHER] BOTH EYES ×2 (08:51→20:48)
[2024-03-08] MEDS: LOSARTAN 25 MG TABLET GT (08:52)
[2024-03-08] MEDS: MULTIVIT-MIN/IRON FUM/FOLIC AC 1 EACH TABLET GT (08:52)
[2024-03-08] MEDS: SENNOSIDES 8.6 MG TABLET GT ×2 (08:52→20:48)
[2024-03-09] VITALS (10 sets, daily range): BP systolic 101–119; BP diastolic 62–76; PULSE 59–86; RESP 17–20; TEMP 36–36.6; O2SAT 96–98
[2024-03-09] MEDS: PROPRANOLOL 10 MG TABLET 20 MG GT ×2 (05:17→14:20)
[2024-03-09] MEDS: FLAX GT (09:09)
[2024-03-09] MEDS: BORAGE GT (09:09)
[2024-03-09] MEDS: [UNRECOGNIZED DRUG - OTHER] GT (09:09)
[2024-03-09] MEDS: [UNRECOGNIZED DRUG - OTHER] BOTH EYES ×2 (09:09→21:17)
[2024-03-09] MEDS: DEXLANSOPRAZOLE 30 MG GT (09:09)
[2024-03-09] MEDS: TEARS BOTH EYES ×2 (09:09→21:17)
[2024-03-09] MEDS: FISH OIL GT (09:09)
[2024-03-09] MEDS: SENNOSIDES 8.6 MG TABLET GT ×2 (09:10→21:17)
[2024-03-10] VITALS (11 sets, daily range): BP systolic 97–115; BP diastolic 59–73; PULSE 50–75; RESP 18–22; TEMP 36.3–36.4; O2SAT 96–99
[2024-03-10] MEDS: PROPRANOLOL 10 MG TABLET 20 MG GT ×3 (05:43→22:00)
[2024-03-10] MEDS: DEXLANSOPRAZOLE 30 MG GT (10:12)
[2024-03-10] MEDS: FISH OIL GT (10:12)
[2024-03-10] MEDS: [UNRECOGNIZED DRUG - OTHER] GT (10:12)
[2024-03-10] MEDS: TEARS BOTH EYES ×2 (10:12→20:45)
[2024-03-10] MEDS: [UNRECOGNIZED DRUG - OTHER] BOTH EYES ×2 (10:12→20:45)
[2024-03-10] MEDS: FLAX GT (10:12)
[2024-03-10] MEDS: BORAGE GT (10:12)
[2024-03-10] MEDS: SENNOSIDES 8.6 MG TABLET GT ×2 (10:13→20:45)
--- NOTE | 2024-03-10 13:45 | PD.SAPROG ---
Progress Note - SubAcute DIAGNOSIS (1) Traumatic brain injury: Status: Chronic (2) Anoxic brain damage, not elsewhere classified: Status: Chronic (3) Tracheostomy status: Status: Chronic (4) Gastrostomy status: Status: Chronic (5) Chronic respiratory failure: Status: Chronic SUBJECTIVE Fever:: none GI:: none Shortness of Breath:: none GI:: no complaints Pain:: none OBJECTIVE Most recent vital signs: Last Vital Signs Temp 97.5 F 03/11/24 17:49 Pulse 64 03/11/24 21:31 Resp 18 03/11/24 17:49 BP 102/63 03/11/24 21:31 Pulse Ox 100 03/11/24 12:00 O2 Del Method Blow-by 03/10/24 06:00 O2 Flow Rate 10 03/11/24 06:50 FiO2 35 03/11/24 06:50 Neurological:: awake Speech:: none Answers questions:: sometimes (Sometimes opens eyes to command.) Respiratory:: lungs clear Cardiovascular: RRR Abdomen: soft and nontender Extremities:: deformities Decubitus:: none Tracheostomy:: to blow by Feeding per:: G tube Complaints:: none ASSESSMENT & PLAN Assessment: Stable status. No improvement in cognitive function. Diagnosis and treatment reviewed. Prognosis poor. Plan: Current treatment continued as ongoing
[2024-03-11] VITALS (9 sets, daily range): BP systolic 96–109; BP diastolic 56–69; PULSE 43–86; RESP 18–20; TEMP 36.4; O2SAT 94–100
[2024-03-11] MEDS: FLAX GT (08:06)
[2024-03-11] MEDS: FISH OIL GT (08:06)
[2024-03-11] MEDS: BORAGE GT (08:06)
[2024-03-11] MEDS: DEXLANSOPRAZOLE 30 MG GT (08:06)
[2024-03-11] MEDS: [UNRECOGNIZED DRUG - OTHER] GT (08:06)
[2024-03-11] MEDS: [UNRECOGNIZED DRUG - OTHER] BOTH EYES ×2 (08:06→20:43)
[2024-03-11] MEDS: TEARS BOTH EYES ×2 (08:06→20:43)
[2024-03-11] MEDS: SENNOSIDES 8.6 MG TABLET GT ×2 (08:08→20:43)
[2024-03-11] MEDS: PROPRANOLOL 10 MG TABLET 20 MG GT ×2 (14:30→21:31)
[2024-03-12] VITALS (10 sets, daily range): BP systolic 92–115; BP diastolic 61–70; PULSE 56–82; RESP 18–20; TEMP 36.2–36.6; O2SAT 95–99
[2024-03-12] MEDS: PROPRANOLOL 10 MG TABLET 20 MG GT ×3 (05:11→21:52)
[2024-03-12] MEDS: TEARS BOTH EYES ×2 (09:07→20:45)
[2024-03-12] MEDS: FISH OIL GT (09:07)
[2024-03-12] MEDS: BORAGE GT (09:07)
[2024-03-12] MEDS: FLAX GT (09:07)
[2024-03-12] MEDS: DEXLANSOPRAZOLE 30 MG GT (09:07)
[2024-03-12] MEDS: [UNRECOGNIZED DRUG - OTHER] BOTH EYES ×2 (09:07→20:45)
[2024-03-12] MEDS: [UNRECOGNIZED DRUG - OTHER] GT (09:07)
[2024-03-12] MEDS: SENNOSIDES 8.6 MG TABLET GT ×2 (09:08→20:45)
--- NOTE | 2024-03-12 20:09 | PD.SAPROG ---
Progress Note - SubAcute DIAGNOSIS (1) Traumatic brain injury: Status: Chronic (2) Anoxic brain damage, not elsewhere classified: Status: Chronic (3) Tracheostomy status: Status: Chronic (4) Gastrostomy status: Status: Chronic (5) Chronic respiratory failure: Status: Chronic SUBJECTIVE Fever:: none GI:: none Shortness of Breath:: none GI:: no complaints Pain:: none OBJECTIVE Most recent vital signs: Last Vital Signs Temp 97.4 F 03/12/24 17:33 Pulse 60 03/12/24 17:33 Resp 20 03/12/24 17:33 BP 92/62 03/12/24 17:33 Pulse Ox 99 03/12/24 12:00 O2 Del Method Blow-by 03/12/24 12:00 O2 Flow Rate 10 03/12/24 12:00 FiO2 35 03/12/24 12:00 Neurological:: awake Speech:: none Answers questions:: sometimes (Sometimes opens eyes to command.) Respiratory:: lungs clear Cardiovascular: RRR Abdomen: soft and nontender Extremities:: deformities Decubitus:: none Tracheostomy:: to blow by Feeding per:: G tube Complaints:: none ASSESSMENT & PLAN Assessment: Stable status. No improvement in cognitive function. Diagnosis and treatment reviewed. Prognosis poor. Plan: Current treatment continued as ongoing
[2024-03-13] VITALS (8 sets, daily range): BP systolic 92–113; BP diastolic 51–78; PULSE 55–78; RESP 18–20; TEMP 36.3–36.8; O2SAT 97–98
[2024-03-13] MEDS: TEARS BOTH EYES ×2 (08:33→21:05)
[2024-03-13] MEDS: DEXLANSOPRAZOLE 30 MG GT (08:33)
[2024-03-13] MEDS: [UNRECOGNIZED DRUG - OTHER] BOTH EYES ×2 (08:33→21:05)
[2024-03-13] MEDS: FISH OIL GT (08:34)
[2024-03-13] MEDS: BORAGE GT (08:34)
[2024-03-13] MEDS: SENNOSIDES 8.6 MG TABLET GT ×2 (08:34→21:06)
[2024-03-13] MEDS: MULTIVIT-MIN/IRON FUM/FOLIC AC 1 EACH TABLET GT (08:34)
[2024-03-13] MEDS: LOSARTAN 25 MG TABLET GT (08:34)
[2024-03-13] MEDS: [UNRECOGNIZED DRUG - OTHER] GT (08:34)
[2024-03-13] MEDS: FLAX GT (08:34)
[2024-03-13] MEDS: PROPRANOLOL 10 MG TABLET 20 MG GT (13:46)
--- NOTE | 2024-03-13 14:52 | PC.SS ---
Room visit: resident is laying in bed with head of the bed elevated with call light properly placed with no signs of distress. Resident remains on blow by with trach in place and GT for medication and nutrition. Resident will remain in current care as he has no changes in care or condition, all subacute care needs will continue to be met by staff. This SSD will make daily contact with resident and monitor for any changes.
[2024-03-14] VITALS (9 sets, daily range): BP systolic 94–126; BP diastolic 62–81; PULSE 61–76; RESP 18–22; TEMP 36–36.9; O2SAT 97–99
[2024-03-14] MEDS: LOSARTAN 25 MG TABLET GT (09:13)
[2024-03-14] MEDS: [UNRECOGNIZED DRUG - OTHER] GT (09:13)
[2024-03-14] MEDS: FISH OIL GT (09:13)
[2024-03-14] MEDS: TEARS BOTH EYES ×2 (09:13→21:57)
[2024-03-14] MEDS: DEXLANSOPRAZOLE 30 MG GT (09:13)
[2024-03-14] MEDS: [UNRECOGNIZED DRUG - OTHER] BOTH EYES ×2 (09:13→21:57)
[2024-03-14] MEDS: FLAX GT (09:13)
[2024-03-14] MEDS: BORAGE GT (09:13)
[2024-03-14] MEDS: MULTIVIT-MIN/IRON FUM/FOLIC AC 1 EACH TABLET GT (09:14)
[2024-03-14] MEDS: MAGNESIUM HYDROXIDE 30 ML ORAL SUSP ML GT (09:14)
[2024-03-14] MEDS: SENNOSIDES 8.6 MG TABLET GT ×2 (09:14→21:57)
[2024-03-14] MEDS: PROPRANOLOL 10 MG TABLET 20 MG GT (14:17)
[2024-03-15] VITALS (10 sets, daily range): BP systolic 93–116; BP diastolic 61–73; PULSE 61–81; RESP 18–22; TEMP 35.9–36.9; O2SAT 96–98
[2024-03-15] MEDS: TEARS BOTH EYES ×2 (09:05→20:10)
[2024-03-15] MEDS: FISH OIL GT (09:05)
[2024-03-15] MEDS: DEXLANSOPRAZOLE 30 MG GT (09:05)
[2024-03-15] MEDS: [UNRECOGNIZED DRUG - OTHER] BOTH EYES ×2 (09:05→20:10)
[2024-03-15] MEDS: FLAX GT (09:05)
[2024-03-15] MEDS: [UNRECOGNIZED DRUG - OTHER] GT (09:05)
[2024-03-15] MEDS: BORAGE GT (09:05)
[2024-03-15] MEDS: SENNOSIDES 8.6 MG TABLET GT ×2 (09:06→20:11)
[2024-03-15] MEDS: LOSARTAN 25 MG TABLET GT (09:06)
[2024-03-15] MEDS: MULTIVIT-MIN/IRON FUM/FOLIC AC 1 EACH TABLET GT (09:06)
[2024-03-15] MEDS: PROPRANOLOL 10 MG TABLET 20 MG GT ×2 (14:12→21:43)
[2024-03-16] VITALS (9 sets, daily range): BP systolic 97–117; BP diastolic 51–76; PULSE 60–82; RESP 16–20; TEMP 36.5–36.9; O2SAT 96–98
[2024-03-16] MEDS: PROPRANOLOL 10 MG TABLET 20 MG GT ×2 (05:20→21:31)
[2024-03-16] MEDS: [UNRECOGNIZED DRUG - OTHER] BOTH EYES ×2 (09:07→20:44)
[2024-03-16] MEDS: TEARS BOTH EYES ×2 (09:07→20:44)
[2024-03-16] MEDS: [UNRECOGNIZED DRUG - OTHER] GT (09:08)
[2024-03-16] MEDS: FISH OIL GT (09:08)
[2024-03-16] MEDS: MULTIVIT-MIN/IRON FUM/FOLIC AC 1 EACH TABLET GT (09:08)
[2024-03-16] MEDS: FLAX GT (09:08)
[2024-03-16] MEDS: SENNOSIDES 8.6 MG TABLET GT ×2 (09:08→20:44)
[2024-03-16] MEDS: LOSARTAN 25 MG TABLET GT (09:08)
[2024-03-16] MEDS: BORAGE GT (09:08)
[2024-03-16] MEDS: DEXLANSOPRAZOLE 30 MG GT (09:08)
[2024-03-17] VITALS (12 sets, daily range): BP systolic 94–114; BP diastolic 53–73; PULSE 55–82; RESP 16–20; TEMP 36.2–36.4; O2SAT 94–99
[2024-03-17] MEDS: [UNRECOGNIZED DRUG - OTHER] GT (09:07)
[2024-03-17] MEDS: BORAGE GT (09:07)
[2024-03-17] MEDS: LOSARTAN 25 MG TABLET GT (09:07)
[2024-03-17] MEDS: TEARS BOTH EYES ×2 (09:07→21:29)
[2024-03-17] MEDS: DEXLANSOPRAZOLE 30 MG GT (09:07)
[2024-03-17] MEDS: FISH OIL GT (09:07)
[2024-03-17] MEDS: [UNRECOGNIZED DRUG - OTHER] BOTH EYES ×2 (09:07→21:29)
[2024-03-17] MEDS: FLAX GT (09:07)
[2024-03-17] MEDS: SENNOSIDES 8.6 MG TABLET GT ×2 (09:08→21:29)
[2024-03-17] MEDS: MULTIVIT-MIN/IRON FUM/FOLIC AC 1 EACH TABLET GT (09:08)
[2024-03-17] MEDS: PROPRANOLOL 10 MG TABLET 20 MG GT ×2 (14:15→21:28)
--- NOTE | 2024-03-17 23:07 | PD.SAPROG ---
Progress Note - SubAcute DIAGNOSIS (1) Traumatic brain injury: Status: Chronic (2) Anoxic brain damage, not elsewhere classified: Status: Chronic (3) Tracheostomy status: Status: Chronic (4) Gastrostomy status: Status: Chronic (5) Chronic respiratory failure: Status: Chronic SUBJECTIVE Fever:: none GI:: none Shortness of Breath:: none GI:: no complaints Pain:: none OBJECTIVE Most recent vital signs: Last Vital Signs Temp 97.6 F 03/17/24 17:59 Pulse 82 03/17/24 21:28 Resp 18 03/17/24 19:30 BP 113/64 03/17/24 21:28 Pulse Ox 97 03/17/24 19:30 O2 Del Method Blow-by 03/17/24 05:48 O2 Flow Rate 10 03/17/24 19:30 FiO2 35 03/17/24 19:30 Neurological:: awake Speech:: none Answers questions:: sometimes (Sometimes opens eyes to command.) Respiratory:: lungs clear Cardiovascular: RRR Abdomen: soft and nontender Extremities:: deformities Decubitus:: none Tracheostomy:: to blow by Feeding per:: G tube Complaints:: none ASSESSMENT & PLAN Assessment: Stable status. No improvement in cognitive function. Diagnosis and treatment reviewed. Prognosis poor. Plan: Current treatment continued as ongoing
[2024-03-18] VITALS (7 sets, daily range): BP systolic 106–122; BP diastolic 64–76; PULSE 60–84; RESP 18–20; TEMP 36.3–36.9; O2SAT 97–100
[2024-03-18] MEDS: PROPRANOLOL 10 MG TABLET 20 MG GT ×3 (05:17→21:19)
[2024-03-18] MEDS: DEXLANSOPRAZOLE 30 MG GT (08:38)
[2024-03-18] MEDS: [UNRECOGNIZED DRUG - OTHER] BOTH EYES ×2 (08:38→20:52)
[2024-03-18] MEDS: MULTIVIT-MIN/IRON FUM/FOLIC AC 1 EACH TABLET GT (08:38)
[2024-03-18] MEDS: BORAGE GT (08:38)
[2024-03-18] MEDS: FISH OIL GT (08:38)
[2024-03-18] MEDS: [UNRECOGNIZED DRUG - OTHER] GT (08:38)
[2024-03-18] MEDS: SENNOSIDES 8.6 MG TABLET GT ×2 (08:38→20:52)
[2024-03-18] MEDS: LOSARTAN 25 MG TABLET GT (08:38)
[2024-03-18] MEDS: TEARS BOTH EYES ×2 (08:38→20:52)
[2024-03-18] MEDS: FLAX GT (08:38)
[2024-03-18] MEDS: MAGNESIUM HYDROXIDE 30 ML ORAL SUSP ML GT (20:52)
[2024-03-19] VITALS (11 sets, daily range): BP systolic 101–120; BP diastolic 53–73; PULSE 60–79; RESP 18–20; TEMP 36.3–36.8; O2SAT 97–98
[2024-03-19] MEDS: PROPRANOLOL 10 MG TABLET 20 MG GT ×3 (05:21→22:00)
[2024-03-19] MEDS: BORAGE GT (08:55)
[2024-03-19] MEDS: DEXLANSOPRAZOLE 30 MG GT (08:55)
[2024-03-19] MEDS: [UNRECOGNIZED DRUG - OTHER] BOTH EYES ×2 (08:55→21:25)
[2024-03-19] MEDS: FISH OIL GT (08:55)
[2024-03-19] MEDS: FLAX GT (08:55)
[2024-03-19] MEDS: MULTIVIT-MIN/IRON FUM/FOLIC AC 1 EACH TABLET GT (08:55)
[2024-03-19] MEDS: TEARS BOTH EYES ×2 (08:55→21:25)
[2024-03-19] MEDS: [UNRECOGNIZED DRUG - OTHER] GT (08:55)
[2024-03-19] MEDS: SENNOSIDES 8.6 MG TABLET GT ×2 (08:56→21:26)
[2024-03-20] VITALS (10 sets, daily range): BP systolic 94–111; BP diastolic 57–69; PULSE 55–76; RESP 18–20; TEMP 36.2–36.6; O2SAT 95–98
[2024-03-20] MEDS: PROPRANOLOL 10 MG TABLET 20 MG GT ×2 (06:25→14:57)
[2024-03-20] MEDS: [UNRECOGNIZED DRUG - OTHER] BOTH EYES ×2 (09:17→20:45)
[2024-03-20] MEDS: [UNRECOGNIZED DRUG - OTHER] GT (09:17)
[2024-03-20] MEDS: FISH OIL GT (09:17)
[2024-03-20] MEDS: FLAX GT (09:17)
[2024-03-20] MEDS: TEARS BOTH EYES ×2 (09:17→20:45)
[2024-03-20] MEDS: LOSARTAN 25 MG TABLET GT (09:17)
[2024-03-20] MEDS: DEXLANSOPRAZOLE 30 MG GT (09:17)
[2024-03-20] MEDS: BORAGE GT (09:17)
[2024-03-20] MEDS: MULTIVIT-MIN/IRON FUM/FOLIC AC 1 EACH TABLET GT (09:18)
[2024-03-20] MEDS: SENNOSIDES 8.6 MG TABLET GT ×2 (09:18→20:46)
--- NOTE | 2024-03-20 15:04 | PC.SS ---
Room visit: Resident is laying in bed with head of the bed elevated with call light properly placed with no signs of distress. Resident remains on blow by with trach in place and GT in place for medication and nutrition. He is unable to make needs known. Resident will remain in current care and will continue to have all subacute care needs met by staff.
[2024-03-20] MEDS: ACETAMINOPHEN 325 MG TABLET 650 MG GT (20:45)
[2024-03-21] VITALS (10 sets, daily range): BP systolic 93–136; BP diastolic 53–81; PULSE 54–96; RESP 16–20; TEMP 36.2–36.6; O2SAT 96–97
[2024-03-21] MEDS: [UNRECOGNIZED DRUG - OTHER] GT (08:57)
[2024-03-21] MEDS: FISH OIL GT (08:57)
[2024-03-21] MEDS: DEXLANSOPRAZOLE 30 MG GT (08:57)
[2024-03-21] MEDS: FLAX GT (08:57)
[2024-03-21] MEDS: BORAGE GT (08:57)
[2024-03-21] MEDS: TEARS BOTH EYES ×2 (08:57→21:02)
[2024-03-21] MEDS: [UNRECOGNIZED DRUG - OTHER] BOTH EYES ×2 (08:57→21:02)
[2024-03-21] MEDS: LOSARTAN 25 MG TABLET GT (08:57)
[2024-03-21] MEDS: SENNOSIDES 8.6 MG TABLET GT ×2 (08:57→21:02)
[2024-03-21] MEDS: MULTIVIT-MIN/IRON FUM/FOLIC AC 1 EACH TABLET GT (08:57)
[2024-03-21] MEDS: PROPRANOLOL 10 MG TABLET 20 MG GT (14:25)
[2024-03-21] MEDS: MAGNESIUM HYDROXIDE 30 ML ORAL SUSP ML GT (21:35)
--- NOTE | 2024-03-21 23:32 | PD.SAPROG ---
Progress Note - SubAcute DIAGNOSIS (1) Traumatic brain injury: Status: Chronic (2) Anoxic brain damage, not elsewhere classified: Status: Chronic (3) Tracheostomy status: Status: Chronic (4) Gastrostomy status: Status: Chronic (5) Chronic respiratory failure: Status: Chronic SUBJECTIVE Fever:: none GI:: none Shortness of Breath:: none GI:: no complaints Pain:: none OBJECTIVE Most recent vital signs: Last Vital Signs Temp 97.8 F 03/21/24 18:00 Pulse 66 03/21/24 21:02 Resp 18 03/21/24 18:36 BP 98/64 03/21/24 21:02 Pulse Ox 96 03/21/24 18:36 O2 Del Method Blow-by 03/21/24 06:00 O2 Flow Rate 10 03/21/24 18:36 FiO2 35 03/21/24 18:36 Neurological:: awake Speech:: none Answers questions:: sometimes (Sometimes opens eyes to command.) Respiratory:: lungs clear Cardiovascular: RRR Abdomen: soft and nontender Extremities:: deformities Decubitus:: none Tracheostomy:: to blow by Feeding per:: G tube Complaints:: none ASSESSMENT & PLAN Assessment: Stable status. No improvement in cognitive function. Diagnosis and treatment reviewed. Prognosis poor. Plan: Current treatment continued as ongoing
[2024-03-22] VITALS (10 sets, daily range): BP systolic 102–117; BP diastolic 63–73; PULSE 58–77; RESP 18; TEMP 36.3–37.2; O2SAT 94–98
[2024-03-22] MEDS: PROPRANOLOL 10 MG TABLET 20 MG GT ×2 (05:26→21:33)
[2024-03-22] MEDS: TEARS BOTH EYES ×2 (09:14→20:53)
[2024-03-22] MEDS: FISH OIL GT (09:14)
[2024-03-22] MEDS: MULTIVIT-MIN/IRON FUM/FOLIC AC 1 EACH TABLET GT (09:14)
[2024-03-22] MEDS: BORAGE GT (09:14)
[2024-03-22] MEDS: [UNRECOGNIZED DRUG - OTHER] BOTH EYES ×2 (09:14→20:53)
[2024-03-22] MEDS: LOSARTAN 25 MG TABLET GT (09:14)
[2024-03-22] MEDS: FLAX GT (09:14)
[2024-03-22] MEDS: DEXLANSOPRAZOLE 30 MG GT (09:14)
[2024-03-22] MEDS: [UNRECOGNIZED DRUG - OTHER] GT (09:14)
[2024-03-22] MEDS: SENNOSIDES 8.6 MG TABLET GT ×2 (09:15→20:53)
[2024-03-23] VITALS (10 sets, daily range): BP systolic 93–121; BP diastolic 55–76; PULSE 55–82; RESP 17–23; TEMP 36.2–36.8; O2SAT 92–96
[2024-03-23] MEDS: [UNRECOGNIZED DRUG - OTHER] BOTH EYES ×2 (09:22→20:50)
[2024-03-23] MEDS: TEARS BOTH EYES ×2 (09:22→20:50)
[2024-03-23] MEDS: BORAGE GT (09:23)
[2024-03-23] MEDS: DEXLANSOPRAZOLE 30 MG GT (09:23)
[2024-03-23] MEDS: FISH OIL GT (09:23)
[2024-03-23] MEDS: LOSARTAN 25 MG TABLET GT (09:23)
[2024-03-23] MEDS: [UNRECOGNIZED DRUG - OTHER] GT (09:23)
[2024-03-23] MEDS: SENNOSIDES 8.6 MG TABLET GT ×2 (09:23→20:51)
[2024-03-23] MEDS: MULTIVIT-MIN/IRON FUM/FOLIC AC 1 EACH TABLET GT (09:23)
[2024-03-23] MEDS: FLAX GT (09:23)
[2024-03-23] MEDS: PROPRANOLOL 10 MG TABLET 20 MG GT (14:37)
--- NOTE | 2024-03-23 15:19 | PC.SS ---
Resident seen by senior core java developer Dr. Thomason for routine toe nail trim, tolerated well with no new orders or recommendations.
[2024-03-24] VITALS (10 sets, daily range): BP systolic 102–125; BP diastolic 57–76; PULSE 54–77; RESP 18–21; TEMP 36.2–36.8; O2SAT 93–99
[2024-03-24] MEDS: TEARS BOTH EYES ×2 (09:04→20:17)
[2024-03-24] MEDS: [UNRECOGNIZED DRUG - OTHER] GT (09:04)
[2024-03-24] MEDS: BORAGE GT (09:04)
[2024-03-24] MEDS: [UNRECOGNIZED DRUG - OTHER] BOTH EYES ×2 (09:04→20:17)
[2024-03-24] MEDS: DEXLANSOPRAZOLE 30 MG GT (09:04)
[2024-03-24] MEDS: FISH OIL GT (09:04)
[2024-03-24] MEDS: FLAX GT (09:04)
[2024-03-24] MEDS: SENNOSIDES 8.6 MG TABLET GT ×2 (09:06→20:17)
[2024-03-24] MEDS: MULTIVIT-MIN/IRON FUM/FOLIC AC 1 EACH TABLET GT (09:06)
[2024-03-24] MEDS: PROPRANOLOL 10 MG TABLET 20 MG GT (14:13)
[2024-03-25] VITALS (10 sets, daily range): BP systolic 104–115; BP diastolic 60–68; PULSE 54–77; RESP 18–20; TEMP 36.2–36.5; O2SAT 96–99
[2024-03-25] MEDS: DEXLANSOPRAZOLE 30 MG GT (08:55)
[2024-03-25] MEDS: SENNOSIDES 8.6 MG TABLET GT ×2 (08:56→20:59)
[2024-03-25] MEDS: MULTIVIT-MIN/IRON FUM/FOLIC AC 1 EACH TABLET GT (08:56)
[2024-03-25] MEDS: FISH OIL GT (08:56)
[2024-03-25] MEDS: [UNRECOGNIZED DRUG - OTHER] GT (08:56)
[2024-03-25] MEDS: FLAX GT (08:56)
[2024-03-25] MEDS: BORAGE GT (08:56)
[2024-03-25] MEDS: TEARS BOTH EYES ×2 (09:00→20:59)
[2024-03-25] MEDS: [UNRECOGNIZED DRUG - OTHER] BOTH EYES ×2 (09:00→20:59)
[2024-03-25] MEDS: PROPRANOLOL 10 MG TABLET 20 MG GT ×2 (13:38→21:40)
--- NOTE | 2024-03-25 22:26 | PD.SAPROG ---
Progress Note - SubAcute DIAGNOSIS (1) Traumatic brain injury: Status: Chronic (2) Anoxic brain damage, not elsewhere classified: Status: Chronic (3) Tracheostomy status: Status: Chronic (4) Gastrostomy status: Status: Chronic (5) Chronic respiratory failure: Status: Chronic SUBJECTIVE Fever:: none GI:: none Shortness of Breath:: none GI:: no complaints Pain:: none OBJECTIVE Most recent vital signs: Last Vital Signs Temp 97.4 F 03/25/24 18:00 Pulse 70 03/25/24 18:00 Resp 18 03/25/24 18:00 BP 111/63 03/25/24 18:00 Pulse Ox 99 03/25/24 18:00 O2 Del Method Blow-by 03/25/24 18:00 O2 Flow Rate 10 03/25/24 06:40 FiO2 35 03/25/24 06:40 Neurological:: awake Speech:: none Answers questions:: sometimes (Sometimes opens eyes to command.) Respiratory:: lungs clear Cardiovascular: RRR Abdomen: soft and nontender Extremities:: deformities Decubitus:: none Tracheostomy:: to blow by Feeding per:: G tube Complaints:: none ASSESSMENT & PLAN Assessment: Stable status. No improvement in cognitive function. Diagnosis and treatment reviewed. Prognosis poor. Plan: Current treatment continued as ongoing
[2024-03-26] VITALS (10 sets, daily range): BP systolic 93–122; BP diastolic 57–71; PULSE 52–75; RESP 17–20; TEMP 36.2–36.4; O2SAT 95–99
[2024-03-26] MEDS: PROPRANOLOL 10 MG TABLET 20 MG GT ×2 (05:28→14:22)
[2024-03-26] MEDS: FLAX GT (08:56)
[2024-03-26] MEDS: [UNRECOGNIZED DRUG - OTHER] GT (08:56)
[2024-03-26] MEDS: BORAGE GT (08:56)
[2024-03-26] MEDS: TEARS BOTH EYES ×2 (08:56→21:01)
[2024-03-26] MEDS: DEXLANSOPRAZOLE 30 MG GT (08:56)
[2024-03-26] MEDS: FISH OIL GT (08:56)
[2024-03-26] MEDS: [UNRECOGNIZED DRUG - OTHER] BOTH EYES ×2 (08:56→21:01)
[2024-03-26] MEDS: MULTIVIT-MIN/IRON FUM/FOLIC AC 1 EACH TABLET GT (08:57)
[2024-03-26] MEDS: SENNOSIDES 8.6 MG TABLET GT ×2 (08:57→21:01)
[2024-03-27] VITALS (9 sets, daily range): BP systolic 97–124; BP diastolic 66–72; PULSE 52–66; RESP 18–20; TEMP 36.2–36.5; O2SAT 96–100
[2024-03-27] MEDS: DEXLANSOPRAZOLE 30 MG GT (08:40)
[2024-03-27] MEDS: [UNRECOGNIZED DRUG - OTHER] GT (08:40)
[2024-03-27] MEDS: FISH OIL GT (08:40)
[2024-03-27] MEDS: [UNRECOGNIZED DRUG - OTHER] BOTH EYES ×2 (08:40→21:17)
[2024-03-27] MEDS: FLAX GT (08:40)
[2024-03-27] MEDS: LOSARTAN 25 MG TABLET GT (08:40)
[2024-03-27] MEDS: BORAGE GT (08:40)
[2024-03-27] MEDS: TEARS BOTH EYES ×2 (08:40→21:17)
[2024-03-27] MEDS: SENNOSIDES 8.6 MG TABLET GT ×2 (08:41→21:17)
[2024-03-27] MEDS: MULTIVIT-MIN/IRON FUM/FOLIC AC 1 EACH TABLET GT (08:41)
--- NOTE | 2024-03-27 12:10 | PC.SS ---
Room Visit: Resident is laying in bed with head of the bed elevated with call light properly placed with no signs of distress. Decision maker is his daughter Arlene, resident is unable to make needs known. Resident remains on blow by with trach in place and GT for medication and nutrition. Resident will remain in current care as he has no changes in care or condition he will continue to have all subacute care needs met by staff. SSD will make daily contact with resident and monitor for changes in mood and behavior.
[2024-03-27] MEDS: PROPRANOLOL 10 MG TABLET 20 MG GT (14:10)
[2024-03-28] VITALS (10 sets, daily range): BP systolic 91–119; BP diastolic 59–76; PULSE 57–76; RESP 16–22; TEMP 36.6–36.7; O2SAT 95–98
[2024-03-28] MEDS: PROPRANOLOL 10 MG TABLET 20 MG GT ×3 (05:26→21:27)
[2024-03-28] MEDS: [UNRECOGNIZED DRUG - OTHER] BOTH EYES ×2 (08:50→20:40)
[2024-03-28] MEDS: [UNRECOGNIZED DRUG - OTHER] GT (08:50)
[2024-03-28] MEDS: BORAGE GT (08:50)
[2024-03-28] MEDS: FISH OIL GT (08:50)
[2024-03-28] MEDS: TEARS BOTH EYES ×2 (08:50→20:40)
[2024-03-28] MEDS: LOSARTAN 25 MG TABLET GT (08:50)
[2024-03-28] MEDS: DEXLANSOPRAZOLE 30 MG GT (08:50)
[2024-03-28] MEDS: FLAX GT (08:50)
[2024-03-28] MEDS: SENNOSIDES 8.6 MG TABLET GT ×2 (08:51→20:40)
[2024-03-28] MEDS: MULTIVIT-MIN/IRON FUM/FOLIC AC 1 EACH TABLET GT (08:51)
[2024-03-29] VITALS (10 sets, daily range): BP systolic 99–112; BP diastolic 66–76; PULSE 51–72; RESP 17–20; TEMP 36.3–36.8; O2SAT 94–98
[2024-03-29] MEDS: FISH OIL GT (09:50)
[2024-03-29] MEDS: LOSARTAN 25 MG TABLET GT (09:50)
[2024-03-29] MEDS: TEARS BOTH EYES ×2 (09:50→20:47)
[2024-03-29] MEDS: MULTIVIT-MIN/IRON FUM/FOLIC AC 1 EACH TABLET GT (09:50)
[2024-03-29] MEDS: [UNRECOGNIZED DRUG - OTHER] BOTH EYES ×2 (09:50→20:47)
[2024-03-29] MEDS: SENNOSIDES 8.6 MG TABLET GT ×2 (09:50→20:47)
[2024-03-29] MEDS: BORAGE GT (09:50)
[2024-03-29] MEDS: FLAX GT (09:50)
[2024-03-29] MEDS: [UNRECOGNIZED DRUG - OTHER] GT (09:50)
[2024-03-29] MEDS: DEXLANSOPRAZOLE 30 MG GT (09:50)
[2024-03-29] MEDS: PROPRANOLOL 10 MG TABLET 20 MG GT ×2 (14:39→20:47)
--- NOTE | 2024-03-29 16:55 | PD.SAPROG ---
Progress Note - SubAcute DIAGNOSIS (1) Traumatic brain injury: Status: Chronic (2) Anoxic brain damage, not elsewhere classified: Status: Chronic (3) Tracheostomy status: Status: Chronic (4) Gastrostomy status: Status: Chronic (5) Chronic respiratory failure: Status: Chronic SUBJECTIVE Fever:: none GI:: none Shortness of Breath:: none GI:: no complaints Pain:: none OBJECTIVE Most recent vital signs: Last Vital Signs Temp 97.6 F 03/29/24 12:00 Pulse 72 03/29/24 14:39 Resp 17 03/29/24 12:00 BP 101/67 03/29/24 14:39 Pulse Ox 98 03/29/24 12:00 O2 Del Method Blow-by 03/29/24 06:00 O2 Flow Rate 8 03/29/24 06:33 FiO2 30 03/29/24 06:33 Neurological:: awake Speech:: none Answers questions:: sometimes (Sometimes opens eyes to command.) Respiratory:: lungs clear Cardiovascular: RRR Abdomen: soft and nontender Extremities:: deformities Decubitus:: none Tracheostomy:: to blow by Feeding per:: G tube Complaints:: none ASSESSMENT & PLAN Assessment: Stable status. No improvement in cognitive function. Diagnosis and treatment reviewed. Prognosis poor. Plan: Current treatment continued as ongoing
[2024-03-30] VITALS (10 sets, daily range): BP systolic 94–123; BP diastolic 52–67; PULSE 54–72; RESP 16–20; TEMP 36.3–36.9; O2SAT 92–97
[2024-03-30] MEDS: PROPRANOLOL 10 MG TABLET 20 MG GT ×3 (05:14→22:00)
[2024-03-30] MEDS: DEXLANSOPRAZOLE 30 MG GT (09:13)
[2024-03-30] MEDS: FLAX GT (09:13)
[2024-03-30] MEDS: TEARS BOTH EYES ×2 (09:13→20:49)
[2024-03-30] MEDS: BORAGE GT (09:13)
[2024-03-30] MEDS: [UNRECOGNIZED DRUG - OTHER] GT (09:13)
[2024-03-30] MEDS: FISH OIL GT (09:13)
[2024-03-30] MEDS: [UNRECOGNIZED DRUG - OTHER] BOTH EYES ×2 (09:13→20:49)
[2024-03-30] MEDS: MULTIVIT-MIN/IRON FUM/FOLIC AC 1 EACH TABLET GT (09:15)
[2024-03-30] MEDS: SENNOSIDES 8.6 MG TABLET GT ×2 (09:15→20:50)
[2024-03-31] VITALS (11 sets, daily range): BP systolic 83–116; BP diastolic 55–77; PULSE 53–86; RESP 18–20; TEMP 36.3–36.5; O2SAT 94–97
[2024-03-31] MEDS: PROPRANOLOL 10 MG TABLET 20 MG GT ×2 (06:00→14:11)
[2024-03-31] MEDS: FISH OIL GT (08:58)
[2024-03-31] MEDS: TEARS BOTH EYES ×2 (08:58→21:09)
[2024-03-31] MEDS: FLAX GT (08:58)
[2024-03-31] MEDS: [UNRECOGNIZED DRUG - OTHER] GT (08:58)
[2024-03-31] MEDS: DEXLANSOPRAZOLE 30 MG GT (08:58)
[2024-03-31] MEDS: [UNRECOGNIZED DRUG - OTHER] BOTH EYES ×2 (08:58→21:09)
[2024-03-31] MEDS: BORAGE GT (08:58)
[2024-03-31] MEDS: LOSARTAN 25 MG TABLET GT (08:58)
[2024-03-31] MEDS: SENNOSIDES 8.6 MG TABLET GT ×2 (08:59→21:09)
[2024-03-31] MEDS: MULTIVIT-MIN/IRON FUM/FOLIC AC 1 EACH TABLET GT (08:59)
[2024-03-31] MEDS: MAGNESIUM HYDROXIDE 30 ML ORAL SUSP ML GT (16:27)
[2024-04-01] VITALS (8 sets, daily range): BP systolic 94–116; BP diastolic 53–74; PULSE 60–82; RESP 18–21; TEMP 36.4–36.9; O2SAT 95–99
[2024-04-01] MEDS: PROPRANOLOL 10 MG TABLET 20 MG GT ×3 (06:00→21:59)
[2024-04-01] MEDS: DEXLANSOPRAZOLE 30 MG GT (08:54)
[2024-04-01] MEDS: FLAX GT (08:54)
[2024-04-01] MEDS: [UNRECOGNIZED DRUG - OTHER] BOTH EYES ×2 (08:54→20:50)
[2024-04-01] MEDS: [UNRECOGNIZED DRUG - OTHER] GT (08:54)
[2024-04-01] MEDS: TEARS BOTH EYES ×2 (08:54→20:50)
[2024-04-01] MEDS: BORAGE GT (08:54)
[2024-04-01] MEDS: FISH OIL GT (08:54)
[2024-04-01] MEDS: SENNOSIDES 8.6 MG TABLET GT ×2 (08:55→20:50)
[2024-04-01] MEDS: MULTIVIT-MIN/IRON FUM/FOLIC AC 1 EACH TABLET GT (08:55)
[2024-04-02] VITALS (10 sets, daily range): BP systolic 91–122; BP diastolic 55–71; PULSE 49–81; RESP 18–20; TEMP 36.1–36.7; O2SAT 96–98
[2024-04-02] MEDS: FISH OIL GT (09:16)
[2024-04-02] MEDS: DEXLANSOPRAZOLE 30 MG GT (09:16)
[2024-04-02] MEDS: FLAX GT (09:16)
[2024-04-02] MEDS: TEARS BOTH EYES ×2 (09:16→21:13)
[2024-04-02] MEDS: [UNRECOGNIZED DRUG - OTHER] BOTH EYES ×2 (09:16→21:13)
[2024-04-02] MEDS: [UNRECOGNIZED DRUG - OTHER] GT (09:16)
[2024-04-02] MEDS: BORAGE GT (09:16)
[2024-04-02] MEDS: SENNOSIDES 8.6 MG TABLET GT ×2 (09:17→21:14)
[2024-04-02] MEDS: MULTIVIT-MIN/IRON FUM/FOLIC AC 1 EACH TABLET GT (09:17)
[2024-04-02] MEDS: PROPRANOLOL 10 MG TABLET 20 MG GT (14:08)
--- NOTE | 2024-04-02 22:22 | PD.SAPROG ---
Progress Note - SubAcute DIAGNOSIS (1) Traumatic brain injury: Status: Chronic (2) Anoxic brain damage, not elsewhere classified: Status: Chronic (3) Tracheostomy status: Status: Chronic (4) Gastrostomy status: Status: Chronic (5) Chronic respiratory failure: Status: Chronic SUBJECTIVE Fever:: none GI:: none Shortness of Breath:: none GI:: no complaints Pain:: none OBJECTIVE Most recent vital signs: Last Vital Signs Temp 97.0 F 04/02/24 18:00 Pulse 49 L 04/02/24 21:14 Resp 20 04/02/24 19:46 BP 91/57 L 04/02/24 21:14 Pulse Ox 98 04/02/24 19:46 O2 Del Method Blow-by 04/02/24 06:00 O2 Flow Rate 10 04/02/24 19:46 FiO2 35 04/02/24 19:46 Neurological:: awake Speech:: none Answers questions:: sometimes (Sometimes opens eyes to command.) Respiratory:: lungs clear Cardiovascular: RRR Abdomen: soft and nontender Extremities:: deformities Decubitus:: none Tracheostomy:: to blow by Feeding per:: G tube Complaints:: none ASSESSMENT & PLAN Assessment: Stable status. No improvement in cognitive function. Diagnosis and treatment reviewed. Prognosis poor. Plan: Current treatment continued as ongoing
[2024-04-03] VITALS (11 sets, daily range): BP systolic 95–109; BP diastolic 54–73; PULSE 54–76; RESP 17–22; TEMP 36.3–36.9; O2SAT 95–98
[2024-04-03] MEDS: TEARS BOTH EYES ×2 (09:43→21:07)
[2024-04-03] MEDS: DEXLANSOPRAZOLE 30 MG GT (09:43)
[2024-04-03] MEDS: [UNRECOGNIZED DRUG - OTHER] BOTH EYES ×2 (09:43→21:07)
[2024-04-03] MEDS: MULTIVIT-MIN/IRON FUM/FOLIC AC 1 EACH TABLET GT (09:44)
[2024-04-03] MEDS: [UNRECOGNIZED DRUG - OTHER] GT (09:44)
[2024-04-03] MEDS: FLAX GT (09:44)
[2024-04-03] MEDS: BORAGE GT (09:44)
[2024-04-03] MEDS: FISH OIL GT (09:44)
--- NOTE | 2024-04-03 16:14 | PC.SS ---
Room visit: Resident is laying in bed with head of the bed elevated with call light properly placed. Resident has no changes in care or condition, remains on blow by with trach in place and GT in place for medication and nutrition. Resident will remain in current care and will continue to have all subacute care needs met by staff.
[2024-04-03] MEDS: ACETAMINOPHEN 325 MG TABLET 650 MG GT (21:05)
[2024-04-03] MEDS: SENNOSIDES 8.6 MG TABLET GT (21:07)
[2024-04-03] MEDS: PROPRANOLOL 10 MG TABLET 20 MG GT (21:08)
[2024-04-03] MEDS: MAGNESIUM HYDROXIDE 30 ML ORAL SUSP ML GT (21:09)
[2024-04-04] VITALS (11 sets, daily range): BP systolic 94–116; BP diastolic 59–80; PULSE 56–92; RESP 18–71; TEMP 36.2–36.5; O2SAT 97–99
[2024-04-04] MEDS: TEARS BOTH EYES ×2 (08:54→20:06)
[2024-04-04] MEDS: [UNRECOGNIZED DRUG - OTHER] BOTH EYES ×2 (08:54→20:06)
[2024-04-04] MEDS: MULTIVIT-MIN/IRON FUM/FOLIC AC 1 EACH TABLET GT (08:54)
[2024-04-04] MEDS: [UNRECOGNIZED DRUG - OTHER] GT (08:54)
[2024-04-04] MEDS: SENNOSIDES 8.6 MG TABLET GT ×2 (08:54→20:05)
[2024-04-04] MEDS: BORAGE GT (08:54)
[2024-04-04] MEDS: FISH OIL GT (08:54)
[2024-04-04] MEDS: FLAX GT (08:54)
[2024-04-04] MEDS: DEXLANSOPRAZOLE 30 MG GT (08:54)
[2024-04-04] MEDS: LOSARTAN 25 MG TABLET GT (08:54)
--- NOTE | 2024-04-04 14:01 | PC.NURSE ---
Pt not taken to activity today d/t no clean clothes available
[2024-04-04] MEDS: PROPRANOLOL 10 MG TABLET 20 MG GT (14:13)
[2024-04-05] VITALS (9 sets, daily range): BP systolic 109–117; BP diastolic 62–73; PULSE 60–70; RESP 18–20; TEMP 36.3–36.4; O2SAT 97–98
[2024-04-05] MEDS: PROPRANOLOL 10 MG TABLET 20 MG GT ×3 (05:09→22:57)
[2024-04-05] MEDS: SENNOSIDES 8.6 MG TABLET GT ×2 (09:02→20:53)
[2024-04-05] MEDS: TEARS BOTH EYES ×2 (09:04→20:53)
[2024-04-05] MEDS: [UNRECOGNIZED DRUG - OTHER] BOTH EYES ×2 (09:04→20:53)
[2024-04-05] MEDS: DEXLANSOPRAZOLE 30 MG GT (09:05)
[2024-04-05] MEDS: FISH OIL GT (09:06)
[2024-04-05] MEDS: MULTIVIT-MIN/IRON FUM/FOLIC AC 1 EACH TABLET GT (09:06)
[2024-04-05] MEDS: BORAGE GT (09:06)
[2024-04-05] MEDS: FLAX GT (09:06)
[2024-04-05] MEDS: [UNRECOGNIZED DRUG - OTHER] GT (09:06)
[2024-04-05] MEDS: ACETAMINOPHEN 325 MG TABLET 650 MG GT (20:45)
[2024-04-06] VITALS (9 sets, daily range): BP systolic 111–125; BP diastolic 65–73; PULSE 58–81; RESP 19–20; TEMP 36.1–36.6; O2SAT 97–98
[2024-04-06] MEDS: DEXLANSOPRAZOLE 30 MG GT (08:34)
[2024-04-06] MEDS: FLAX GT (08:34)
[2024-04-06] MEDS: SENNOSIDES 8.6 MG TABLET GT ×2 (08:34→20:12)
[2024-04-06] MEDS: TEARS BOTH EYES ×2 (08:34→20:12)
[2024-04-06] MEDS: LOSARTAN 25 MG TABLET GT (08:34)
[2024-04-06] MEDS: [UNRECOGNIZED DRUG - OTHER] GT (08:34)
[2024-04-06] MEDS: [UNRECOGNIZED DRUG - OTHER] BOTH EYES ×2 (08:34→20:12)
[2024-04-06] MEDS: FISH OIL GT (08:34)
[2024-04-06] MEDS: BORAGE GT (08:34)
--- NOTE | 2024-04-06 08:34 | CHAP ---
Patient was visited by a Spiritual Care Volunteer on 04/03/2024 between 0915 and 1200 and received comfort, encouragement and/or prayer.
[2024-04-06] MEDS: MULTIVIT-MIN/IRON FUM/FOLIC AC 1 EACH TABLET GT (08:35)
[2024-04-06] MEDS: PROPRANOLOL 10 MG TABLET 20 MG GT ×2 (14:49→21:20)
--- NOTE | 2024-04-06 20:31 | PD.SAPROG ---
Progress Note - SubAcute DIAGNOSIS (1) Traumatic brain injury: Status: Chronic (2) Anoxic brain damage, not elsewhere classified: Status: Chronic (3) Tracheostomy status: Status: Chronic (4) Gastrostomy status: Status: Chronic (5) Chronic respiratory failure: Status: Chronic SUBJECTIVE Fever:: none GI:: none Shortness of Breath:: none GI:: no complaints Pain:: none OBJECTIVE Most recent vital signs: Last Vital Signs Temp 97.0 F 04/06/24 17:19 Pulse 63 04/06/24 17:19 Resp 19 04/06/24 17:19 BP 125/65 04/06/24 17:19 Pulse Ox 97 04/06/24 07:21 O2 Del Method Blow-by 04/05/24 17:18 O2 Flow Rate 10 04/06/24 07:21 FiO2 35 04/06/24 07:21 Neurological:: awake Speech:: none Answers questions:: sometimes (Sometimes opens eyes to command.) Respiratory:: lungs clear Cardiovascular: RRR Abdomen: soft and nontender Extremities:: deformities Decubitus:: none Tracheostomy:: to blow by Feeding per:: G tube Complaints:: none ASSESSMENT & PLAN Assessment: Stable status. No improvement in cognitive function. Diagnosis and treatment reviewed. Prognosis poor. Plan: Current treatment continued as ongoing
[2024-04-07] VITALS (10 sets, daily range): BP systolic 95–108; BP diastolic 57–72; PULSE 58–83; RESP 18–23; TEMP 36.3–36.6; O2SAT 94–99
[2024-04-07] MEDS: PROPRANOLOL 10 MG TABLET 20 MG GT ×2 (05:38→21:25)
[2024-04-07] MEDS: BORAGE GT (09:05)
[2024-04-07] MEDS: DEXLANSOPRAZOLE 30 MG GT (09:05)
[2024-04-07] MEDS: FISH OIL GT (09:05)
[2024-04-07] MEDS: FLAX GT (09:05)
[2024-04-07] MEDS: [UNRECOGNIZED DRUG - OTHER] GT (09:05)
[2024-04-07] MEDS: TEARS BOTH EYES ×2 (09:05→20:35)
[2024-04-07] MEDS: [UNRECOGNIZED DRUG - OTHER] BOTH EYES ×2 (09:05→20:35)
[2024-04-07] MEDS: SENNOSIDES 8.6 MG TABLET GT ×2 (09:05→20:35)
[2024-04-07] MEDS: MAGNESIUM HYDROXIDE 30 ML ORAL SUSP ML GT (09:06)
[2024-04-07] MEDS: MULTIVIT-MIN/IRON FUM/FOLIC AC 1 EACH TABLET GT (09:06)
[2024-04-08] VITALS (10 sets, daily range): BP systolic 92–113; BP diastolic 57–70; PULSE 61–79; RESP 18–20; TEMP 36.5–36.8; O2SAT 95–98
[2024-04-08] MEDS: PROPRANOLOL 10 MG TABLET 20 MG GT ×2 (05:06→14:03)
[2024-04-08] MEDS: SENNOSIDES 8.6 MG TABLET GT ×2 (08:42→21:27)
[2024-04-08] MEDS: BORAGE GT (08:43)
[2024-04-08] MEDS: [UNRECOGNIZED DRUG - OTHER] GT (08:43)
[2024-04-08] MEDS: LOSARTAN 25 MG TABLET GT (08:43)
[2024-04-08] MEDS: DEXLANSOPRAZOLE 30 MG GT (08:43)
[2024-04-08] MEDS: TEARS BOTH EYES ×2 (08:43→21:27)
[2024-04-08] MEDS: FLAX GT (08:43)
[2024-04-08] MEDS: FISH OIL GT (08:43)
[2024-04-08] MEDS: [UNRECOGNIZED DRUG - OTHER] BOTH EYES ×2 (08:43→21:27)
[2024-04-08] MEDS: MULTIVIT-MIN/IRON FUM/FOLIC AC 1 EACH TABLET GT (08:43)
[2024-04-09] VITALS (10 sets, daily range): BP systolic 98–108; BP diastolic 55–71; PULSE 52–79; RESP 18–20; TEMP 36.2–36.7; O2SAT 95–99
[2024-04-09] MEDS: PROPRANOLOL 10 MG TABLET 20 MG GT ×3 (05:18→21:15)
[2024-04-09] MEDS: BORAGE GT (09:00)
[2024-04-09] MEDS: FLAX GT (09:00)
[2024-04-09] MEDS: [UNRECOGNIZED DRUG - OTHER] GT (09:00)
[2024-04-09] MEDS: DEXLANSOPRAZOLE 30 MG GT (09:00)
[2024-04-09] MEDS: SENNOSIDES 8.6 MG TABLET GT ×2 (09:00→20:47)
[2024-04-09] MEDS: [UNRECOGNIZED DRUG - OTHER] BOTH EYES ×2 (09:00→20:47)
[2024-04-09] MEDS: MULTIVIT-MIN/IRON FUM/FOLIC AC 1 EACH TABLET GT (09:00)
[2024-04-09] MEDS: FISH OIL GT (09:00)
[2024-04-09] MEDS: TEARS BOTH EYES ×2 (09:00→20:47)
[2024-04-10] VITALS (10 sets, daily range): BP systolic 91–118; BP diastolic 55–77; PULSE 50–76; RESP 16–18; TEMP 36.1–36.7; O2SAT 95–99
[2024-04-10] MEDS: PROPRANOLOL 10 MG TABLET 20 MG GT ×3 (06:12→21:21)
[2024-04-10] MEDS: SENNOSIDES 8.6 MG TABLET GT ×2 (08:48→20:45)
[2024-04-10] MEDS: [UNRECOGNIZED DRUG - OTHER] GT (08:49)
[2024-04-10] MEDS: MULTIVIT-MIN/IRON FUM/FOLIC AC 1 EACH TABLET GT (08:49)
[2024-04-10] MEDS: FLAX GT (08:49)
[2024-04-10] MEDS: BORAGE GT (08:49)
[2024-04-10] MEDS: DEXLANSOPRAZOLE 30 MG GT (08:49)
[2024-04-10] MEDS: LOSARTAN 25 MG TABLET GT (08:49)
[2024-04-10] MEDS: FISH OIL GT (08:49)
[2024-04-10] MEDS: TEARS BOTH EYES ×2 (08:49→20:45)
[2024-04-10] MEDS: [UNRECOGNIZED DRUG - OTHER] BOTH EYES ×2 (08:49→20:45)
--- NOTE | 2024-04-10 15:00 | PC.SS ---
Room visit: Resident is laying in bed with head of the bed elevated with call light properly placed with no signs of distress. Resident remains on blow by with trach in place and GT for medication and nutrition. Resident has no changes in care or condition, resident will remain in current care and will continue to have all subacute care needs met by staff. This SSD to make daily contact and monitor for changes in mod and behavior and will offer support as needed.
[2024-04-10] MEDS: MAGNESIUM HYDROXIDE 30 ML ORAL SUSP ML GT (20:46)
--- NOTE | 2024-04-10 22:17 | PD.SAPROG ---
Progress Note - SubAcute DIAGNOSIS (1) Traumatic brain injury: Status: Chronic (2) Anoxic brain damage, not elsewhere classified: Status: Chronic (3) Tracheostomy status: Status: Chronic (4) Gastrostomy status: Status: Chronic (5) Chronic respiratory failure: Status: Chronic SUBJECTIVE Fever:: none GI:: none Shortness of Breath:: none GI:: no complaints Pain:: none OBJECTIVE Most recent vital signs: Last Vital Signs Temp 97.0 F 04/10/24 18:00 Pulse 62 04/10/24 21:21 Resp 16 04/10/24 18:00 BP 112/68 04/10/24 21:21 Pulse Ox 95 04/10/24 06:00 O2 Del Method Blow-by 04/10/24 06:00 O2 Flow Rate 10 04/10/24 04:54 FiO2 35 04/10/24 04:54 Neurological:: awake Speech:: none Answers questions:: sometimes (Sometimes opens eyes to command.) Respiratory:: lungs clear Cardiovascular: RRR Abdomen: soft and nontender Extremities:: deformities Decubitus:: none Tracheostomy:: to blow by Feeding per:: G tube Complaints:: none ASSESSMENT & PLAN Assessment: Stable status. No improvement in cognitive function. Diagnosis and treatment reviewed. Prognosis poor. Plan: Current treatment continued as ongoing
[2024-04-11] VITALS (10 sets, daily range): BP systolic 97–136; BP diastolic 53–76; PULSE 54–82; RESP 18–20; TEMP 36.2–36.7; O2SAT 97–98
[2024-04-11] MEDS: PROPRANOLOL 10 MG TABLET 20 MG GT ×2 (05:36→14:30)
[2024-04-11] MEDS: [UNRECOGNIZED DRUG - OTHER] BOTH EYES ×2 (08:17→20:37)
[2024-04-11] MEDS: TEARS BOTH EYES ×2 (08:17→20:37)
[2024-04-11] MEDS: [UNRECOGNIZED DRUG - OTHER] GT (08:17)
[2024-04-11] MEDS: DEXLANSOPRAZOLE 30 MG GT (08:17)
[2024-04-11] MEDS: SENNOSIDES 8.6 MG TABLET GT ×2 (08:17→20:37)
[2024-04-11] MEDS: FLAX GT (08:17)
[2024-04-11] MEDS: BORAGE GT (08:17)
[2024-04-11] MEDS: FISH OIL GT (08:17)
[2024-04-11] MEDS: MULTIVIT-MIN/IRON FUM/FOLIC AC 1 EACH TABLET GT (08:18)
[2024-04-11] MEDS: SODIUM PHOSPHATE,MONO-DIBASIC 133 ML ENEMA PR (10:30)
[2024-04-12] VITALS (10 sets, daily range): BP systolic 100–117; BP diastolic 65–77; PULSE 54–75; RESP 16–18; TEMP 36.2–36.6; O2SAT 97–99
[2024-04-12] MEDS: PROPRANOLOL 10 MG TABLET 20 MG GT ×2 (05:11→20:52)
[2024-04-12] MEDS: [UNRECOGNIZED DRUG - OTHER] GT (09:14)
[2024-04-12] MEDS: TEARS BOTH EYES ×2 (09:14→20:52)
[2024-04-12] MEDS: LOSARTAN 25 MG TABLET GT (09:14)
[2024-04-12] MEDS: [UNRECOGNIZED DRUG - OTHER] BOTH EYES ×2 (09:14→20:52)
[2024-04-12] MEDS: FISH OIL GT (09:14)
[2024-04-12] MEDS: DEXLANSOPRAZOLE 30 MG GT (09:14)
[2024-04-12] MEDS: SENNOSIDES 8.6 MG TABLET GT ×2 (09:14→20:52)
[2024-04-12] MEDS: FLAX GT (09:14)
[2024-04-12] MEDS: BORAGE GT (09:14)
[2024-04-12] MEDS: MULTIVIT-MIN/IRON FUM/FOLIC AC 1 EACH TABLET GT (09:15)
--- NOTE | 2024-04-12 19:43 | PD.SAPROG ---
Progress Note - SubAcute DIAGNOSIS (1) Traumatic brain injury: Status: Chronic (2) Anoxic brain damage, not elsewhere classified: Status: Chronic (3) Tracheostomy status: Status: Chronic (4) Gastrostomy status: Status: Chronic (5) Chronic respiratory failure: Status: Chronic SUBJECTIVE Fever:: none GI:: none Shortness of Breath:: none GI:: no complaints Pain:: none OBJECTIVE Most recent vital signs: Last Vital Signs Temp 97.7 F 04/12/24 17:31 Pulse 59 L 04/12/24 17:31 Resp 16 04/12/24 17:31 BP 100/66 04/12/24 17:31 Pulse Ox 99 04/12/24 12:00 O2 Del Method Blow-by 04/12/24 05:48 O2 Flow Rate 10 04/12/24 06:45 FiO2 35 04/12/24 06:45 Neurological:: awake Speech:: none Answers questions:: sometimes (Sometimes opens eyes to command.) Respiratory:: lungs clear Cardiovascular: RRR Abdomen: soft and nontender Extremities:: deformities Decubitus:: none Tracheostomy:: to blow by Feeding per:: G tube Complaints:: none ASSESSMENT & PLAN Assessment: Stable status. No improvement in cognitive function. Diagnosis and treatment reviewed. Prognosis poor. Plan: Current treatment continued as ongoing
[2024-04-13] VITALS (10 sets, daily range): BP systolic 94–110; BP diastolic 50–75; PULSE 56–74; RESP 18–22; TEMP 36.1–36.6; O2SAT 97–98
[2024-04-13] MEDS: DEXLANSOPRAZOLE 30 MG GT (08:01)
[2024-04-13] MEDS: FISH OIL GT (08:01)
[2024-04-13] MEDS: MULTIVIT-MIN/IRON FUM/FOLIC AC 1 EACH TABLET GT (08:01)
[2024-04-13] MEDS: BORAGE GT (08:01)
[2024-04-13] MEDS: [UNRECOGNIZED DRUG - OTHER] BOTH EYES ×2 (08:01→20:54)
[2024-04-13] MEDS: FLAX GT (08:01)
[2024-04-13] MEDS: [UNRECOGNIZED DRUG - OTHER] GT (08:01)
[2024-04-13] MEDS: LOSARTAN 25 MG TABLET GT (08:01)
[2024-04-13] MEDS: TEARS BOTH EYES ×2 (08:01→20:54)
[2024-04-13] MEDS: SENNOSIDES 8.6 MG TABLET GT ×2 (08:01→20:54)
[2024-04-13] MEDS: PROPRANOLOL 10 MG TABLET 20 MG GT (13:12)
[2024-04-14] VITALS (7 sets, daily range): BP systolic 97–114; BP diastolic 57–71; PULSE 51–75; RESP 18–20; TEMP 36.4–36.6; O2SAT 97
[2024-04-14] MEDS: [UNRECOGNIZED DRUG - OTHER] BOTH EYES ×2 (08:45→21:00)
[2024-04-14] MEDS: BORAGE GT (08:45)
[2024-04-14] MEDS: FLAX GT (08:45)
[2024-04-14] MEDS: MULTIVIT-MIN/IRON FUM/FOLIC AC 1 EACH TABLET GT (08:45)
[2024-04-14] MEDS: FISH OIL GT (08:45)
[2024-04-14] MEDS: TEARS BOTH EYES ×2 (08:45→21:00)
[2024-04-14] MEDS: [UNRECOGNIZED DRUG - OTHER] GT (08:45)
[2024-04-14] MEDS: LOSARTAN 25 MG TABLET GT (08:45)
[2024-04-14] MEDS: DEXLANSOPRAZOLE 30 MG GT (08:45)
[2024-04-14] MEDS: SENNOSIDES 8.6 MG TABLET GT ×2 (08:46→21:00)
[2024-04-14] MEDS: PROPRANOLOL 10 MG TABLET 20 MG GT (21:01)
[2024-04-15] VITALS (10 sets, daily range): BP systolic 90–109; BP diastolic 58–76; PULSE 56–88; RESP 16–20; TEMP 36.2–36.7; O2SAT 96–97
[2024-04-15] MEDS: [UNRECOGNIZED DRUG - OTHER] GT (08:54)
[2024-04-15] MEDS: FISH OIL GT (08:54)
[2024-04-15] MEDS: TEARS BOTH EYES ×2 (08:54→21:29)
[2024-04-15] MEDS: [UNRECOGNIZED DRUG - OTHER] BOTH EYES ×2 (08:54→21:29)
[2024-04-15] MEDS: DEXLANSOPRAZOLE 30 MG GT (08:54)
[2024-04-15] MEDS: MULTIVIT-MIN/IRON FUM/FOLIC AC 1 EACH TABLET GT (08:54)
[2024-04-15] MEDS: FLAX GT (08:54)
[2024-04-15] MEDS: BORAGE GT (08:54)
[2024-04-15] MEDS: SENNOSIDES 8.6 MG TABLET GT ×2 (08:55→21:29)
[2024-04-15] MEDS: MAGNESIUM HYDROXIDE 30 ML ORAL SUSP ML GT (08:55)
--- NOTE | 2024-04-15 13:46 | PC.SS ---
Room visit: Resident is laying in bed with head of the bed elevated with call light properly placed with no signs of distress. Resident is well groomed not showing any changes in mood and behavior. Resident remains on blow by with trach in place and GT for medications. Resident will remain in current care and will continue to have all subacute care needs met by staff.
[2024-04-15] MEDS: PROPRANOLOL 10 MG TABLET 20 MG GT (21:30)
[2024-04-16] VITALS (11 sets, daily range): BP systolic 100–141; BP diastolic 62–79; PULSE 56–91; RESP 16–18; TEMP 36.3–36.8; O2SAT 95–99
[2024-04-16] MEDS: LOSARTAN 25 MG TABLET GT (09:24)
[2024-04-16] MEDS: DEXLANSOPRAZOLE 30 MG GT (09:24)
[2024-04-16] MEDS: FISH OIL GT (09:24)
[2024-04-16] MEDS: TEARS BOTH EYES ×2 (09:24→21:23)
[2024-04-16] MEDS: FLAX GT (09:24)
[2024-04-16] MEDS: SENNOSIDES 8.6 MG TABLET GT ×2 (09:24→21:23)
[2024-04-16] MEDS: [UNRECOGNIZED DRUG - OTHER] BOTH EYES ×2 (09:24→21:23)
[2024-04-16] MEDS: BORAGE GT (09:24)
[2024-04-16] MEDS: [UNRECOGNIZED DRUG - OTHER] GT (09:24)
[2024-04-16] MEDS: MULTIVIT-MIN/IRON FUM/FOLIC AC 1 EACH TABLET GT (09:24)
[2024-04-16] MEDS: PROPRANOLOL 10 MG TABLET 20 MG GT ×2 (13:55→21:23)
--- NOTE | 2024-04-16 21:50 | PD.SAPROG ---
Progress Note - SubAcute DIAGNOSIS (1) Traumatic brain injury: Status: Chronic (2) Anoxic brain damage, not elsewhere classified: Status: Chronic (3) Tracheostomy status: Status: Chronic (4) Gastrostomy status: Status: Chronic (5) Chronic respiratory failure: Status: Chronic SUBJECTIVE Fever:: none GI:: none Shortness of Breath:: none GI:: no complaints Pain:: none OBJECTIVE Most recent vital signs: Last Vital Signs Temp 97.7 F 04/19/24 06:00 Pulse 64 04/19/24 09:00 Resp 16 04/19/24 06:00 BP 110/58 L 04/19/24 09:00 Pulse Ox 100 04/19/24 06:00 O2 Del Method Blow-by 04/19/24 06:00 O2 Flow Rate 10 04/18/24 22:50 FiO2 35 04/18/24 22:50 Neurological:: awake Speech:: none Answers questions:: sometimes (Sometimes opens eyes to command.) Respiratory:: lungs clear Cardiovascular: RRR Abdomen: soft and nontender Extremities:: deformities Decubitus:: none Tracheostomy:: to blow by Feeding per:: G tube Complaints:: none ASSESSMENT & PLAN Assessment: Stable status. No improvement in cognitive function. Diagnosis and treatment reviewed. Prognosis poor. Plan: Current treatment continued as ongoing
[2024-04-17] VITALS (10 sets, daily range): BP systolic 100–116; BP diastolic 57–72; PULSE 63–92; RESP 16–18; TEMP 36.2–36.8; O2SAT 96–99
[2024-04-17] MEDS: FISH OIL GT (08:15)
[2024-04-17] MEDS: LOSARTAN 25 MG TABLET GT (08:15)
[2024-04-17] MEDS: MULTIVIT-MIN/IRON FUM/FOLIC AC 1 EACH TABLET GT (08:15)
[2024-04-17] MEDS: [UNRECOGNIZED DRUG - OTHER] BOTH EYES ×2 (08:15→20:55)
[2024-04-17] MEDS: TEARS BOTH EYES ×2 (08:15→20:55)
[2024-04-17] MEDS: BORAGE GT (08:15)
[2024-04-17] MEDS: DEXLANSOPRAZOLE 30 MG GT (08:15)
[2024-04-17] MEDS: [UNRECOGNIZED DRUG - OTHER] GT (08:15)
[2024-04-17] MEDS: FLAX GT (08:15)
[2024-04-17] MEDS: SENNOSIDES 8.6 MG TABLET GT ×2 (08:15→20:55)
[2024-04-17] MEDS: PROPRANOLOL 10 MG TABLET 20 MG GT (20:55)
[2024-04-18] VITALS (10 sets, daily range): BP systolic 96–113; BP diastolic 52–69; PULSE 51–75; RESP 16–21; TEMP 36.2–36.5; O2SAT 95
[2024-04-18] MEDS: FISH OIL GT (08:00)
[2024-04-18] MEDS: [UNRECOGNIZED DRUG - OTHER] GT (08:00)
[2024-04-18] MEDS: BORAGE GT (08:00)
[2024-04-18] MEDS: FLAX GT (08:00)
[2024-04-18] MEDS: TEARS BOTH EYES ×2 (08:01→20:21)
[2024-04-18] MEDS: MULTIVIT-MIN/IRON FUM/FOLIC AC 1 EACH TABLET GT (08:01)
[2024-04-18] MEDS: LOSARTAN 25 MG TABLET GT (08:01)
[2024-04-18] MEDS: [UNRECOGNIZED DRUG - OTHER] BOTH EYES ×2 (08:01→20:21)
[2024-04-18] MEDS: DEXLANSOPRAZOLE 30 MG GT (08:01)
[2024-04-18] MEDS: SENNOSIDES 8.6 MG TABLET GT ×2 (08:02→20:21)
[2024-04-18] MEDS: ACETAMINOPHEN 325 MG TABLET 650 MG GT (20:20)
[2024-04-19] VITALS (9 sets, daily range): BP systolic 93–110; BP diastolic 50–72; PULSE 21–65; RESP 16–60; TEMP 36.4–36.5; O2SAT 98–100
[2024-04-19] MEDS: PROPRANOLOL 10 MG TABLET 20 MG GT ×3 (05:10→20:12)
[2024-04-19] MEDS: [UNRECOGNIZED DRUG - OTHER] BOTH EYES ×2 (08:59→20:10)
[2024-04-19] MEDS: TEARS BOTH EYES ×2 (08:59→20:10)
[2024-04-19] MEDS: [UNRECOGNIZED DRUG - OTHER] GT (09:00)
[2024-04-19] MEDS: FISH OIL GT (09:00)
[2024-04-19] MEDS: LOSARTAN 25 MG TABLET GT (09:00)
[2024-04-19] MEDS: BORAGE GT (09:00)
[2024-04-19] MEDS: DEXLANSOPRAZOLE 30 MG GT (09:00)
[2024-04-19] MEDS: FLAX GT (09:00)
[2024-04-19] MEDS: MULTIVIT-MIN/IRON FUM/FOLIC AC 1 EACH TABLET GT (09:01)
[2024-04-19] MEDS: SENNOSIDES 8.6 MG TABLET GT ×2 (09:01→20:10)
[2024-04-20] VITALS (11 sets, daily range): BP systolic 97–119; BP diastolic 56–78; PULSE 58–81; RESP 18–24; TEMP 36.2–37; O2SAT 94–99
[2024-04-20] MEDS: PROPRANOLOL 10 MG TABLET 20 MG GT ×2 (05:50→14:26)
[2024-04-20] MEDS: FISH OIL GT (08:16)
[2024-04-20] MEDS: BORAGE GT (08:16)
[2024-04-20] MEDS: TEARS BOTH EYES ×2 (08:16→21:42)
[2024-04-20] MEDS: FLAX GT (08:16)
[2024-04-20] MEDS: DEXLANSOPRAZOLE 30 MG GT (08:16)
[2024-04-20] MEDS: LOSARTAN 25 MG TABLET GT (08:16)
[2024-04-20] MEDS: [UNRECOGNIZED DRUG - OTHER] BOTH EYES ×2 (08:16→21:42)
[2024-04-20] MEDS: [UNRECOGNIZED DRUG - OTHER] GT (08:16)
[2024-04-20] MEDS: SENNOSIDES 8.6 MG TABLET GT ×2 (08:17→21:42)
--- NOTE | 2024-04-20 18:48 | PD.SAPROG ---
Progress Note - SubAcute DIAGNOSIS (1) Traumatic brain injury: Status: Chronic (2) Anoxic brain damage, not elsewhere classified: Status: Chronic (3) Tracheostomy status: Status: Chronic (4) Gastrostomy status: Status: Chronic (5) Chronic respiratory failure: Status: Chronic SUBJECTIVE Fever:: none GI:: none Shortness of Breath:: none GI:: no complaints Pain:: none OBJECTIVE Most recent vital signs: Last Vital Signs Temp 97.2 F 04/20/24 17:55 Pulse 61 04/20/24 17:55 Resp 20 04/20/24 17:55 BP 108/68 04/20/24 17:55 Pulse Ox 96 04/20/24 06:28 O2 Del Method Blow-by 04/19/24 06:00 O2 Flow Rate 10 04/20/24 06:28 FiO2 35 04/20/24 06:28 Neurological:: awake Speech:: none Answers questions:: sometimes (Sometimes opens eyes to command.) Respiratory:: lungs clear Cardiovascular: RRR Abdomen: soft and nontender Extremities:: deformities Decubitus:: none Tracheostomy:: to blow by Feeding per:: G tube Complaints:: none ASSESSMENT & PLAN Assessment: Stable status. No improvement in cognitive function. Diagnosis and treatment reviewed. Prognosis poor. Plan: Current treatment continued as ongoing
[2024-04-21] VITALS (10 sets, daily range): BP systolic 98–133; BP diastolic 59–74; PULSE 18–92; RESP 17–21; TEMP 36.1–36.4; O2SAT 97–98
[2024-04-21] MEDS: PROPRANOLOL 10 MG TABLET 20 MG GT ×3 (05:47→21:22)
[2024-04-21] MEDS: TEARS BOTH EYES ×2 (08:28→21:22)
[2024-04-21] MEDS: LOSARTAN 25 MG TABLET GT (08:28)
[2024-04-21] MEDS: FISH OIL GT (08:28)
[2024-04-21] MEDS: [UNRECOGNIZED DRUG - OTHER] GT (08:28)
[2024-04-21] MEDS: FLAX GT (08:28)
[2024-04-21] MEDS: DEXLANSOPRAZOLE 30 MG GT (08:28)
[2024-04-21] MEDS: BORAGE GT (08:28)
[2024-04-21] MEDS: [UNRECOGNIZED DRUG - OTHER] BOTH EYES ×2 (08:28→21:22)
[2024-04-21] MEDS: SENNOSIDES 8.6 MG TABLET GT ×2 (08:29→21:22)
[2024-04-21] MEDS: MULTIVIT-MIN/IRON FUM/FOLIC AC 1 EACH TABLET GT (08:29)
[2024-04-22] VITALS (8 sets, daily range): BP systolic 93–120; BP diastolic 56–73; PULSE 52–70; RESP 17–19; TEMP 36.4–36.8; O2SAT 97–100
[2024-04-22] MEDS: MULTIVIT-MIN/IRON FUM/FOLIC AC 1 EACH TABLET GT (08:34)
[2024-04-22] MEDS: BORAGE GT (08:34)
[2024-04-22] MEDS: DEXLANSOPRAZOLE 30 MG GT (08:34)
[2024-04-22] MEDS: FLAX GT (08:34)
[2024-04-22] MEDS: [UNRECOGNIZED DRUG - OTHER] GT (08:34)
[2024-04-22] MEDS: TEARS BOTH EYES ×2 (08:34→21:06)
[2024-04-22] MEDS: FISH OIL GT (08:34)
[2024-04-22] MEDS: LOSARTAN 25 MG TABLET GT (08:34)
[2024-04-22] MEDS: [UNRECOGNIZED DRUG - OTHER] BOTH EYES ×2 (08:34→21:06)
[2024-04-22] MEDS: SENNOSIDES 8.6 MG TABLET GT ×2 (08:35→21:06)
[2024-04-22] MEDS: PROPRANOLOL 10 MG TABLET 20 MG GT ×2 (14:15→21:05)
[2024-04-23] VITALS (10 sets, daily range): BP systolic 92–117; BP diastolic 58–73; PULSE 58–98; RESP 14–20; TEMP 36.6–36.8; O2SAT 96–99
[2024-04-23] MEDS: DEXLANSOPRAZOLE 30 MG GT (08:46)
[2024-04-23] MEDS: LOSARTAN 25 MG TABLET GT (08:46)
[2024-04-23] MEDS: SENNOSIDES 8.6 MG TABLET GT ×2 (08:46→20:21)
[2024-04-23] MEDS: BORAGE GT (08:46)
[2024-04-23] MEDS: [UNRECOGNIZED DRUG - OTHER] BOTH EYES ×2 (08:46→20:21)
[2024-04-23] MEDS: FLAX GT (08:46)
[2024-04-23] MEDS: TEARS BOTH EYES ×2 (08:46→20:21)
[2024-04-23] MEDS: [UNRECOGNIZED DRUG - OTHER] GT (08:46)
[2024-04-23] MEDS: MULTIVIT-MIN/IRON FUM/FOLIC AC 1 EACH TABLET GT (08:46)
[2024-04-23] MEDS: FISH OIL GT (08:46)
[2024-04-23] MEDS: PROPRANOLOL 10 MG TABLET 20 MG GT ×2 (14:01→21:34)
[2024-04-24] VITALS (10 sets, daily range): BP systolic 90–110; BP diastolic 54–69; PULSE 52–70; RESP 16–18; TEMP 36.4–36.7; O2SAT 97–98
[2024-04-24] MEDS: PROPRANOLOL 10 MG TABLET 20 MG GT (05:20)
[2024-04-24] MEDS: DEXLANSOPRAZOLE 30 MG GT (08:49)
[2024-04-24] MEDS: TEARS BOTH EYES ×2 (08:49→20:50)
[2024-04-24] MEDS: [UNRECOGNIZED DRUG - OTHER] BOTH EYES ×2 (08:49→20:50)
[2024-04-24] MEDS: [UNRECOGNIZED DRUG - OTHER] GT (08:50)
[2024-04-24] MEDS: FLAX GT (08:50)
[2024-04-24] MEDS: BORAGE GT (08:50)
[2024-04-24] MEDS: FISH OIL GT (08:50)
[2024-04-24] MEDS: SENNOSIDES 8.6 MG TABLET GT ×2 (08:51→20:50)
[2024-04-24] MEDS: MULTIVIT-MIN/IRON FUM/FOLIC AC 1 EACH TABLET GT (08:51)
--- NOTE | 2024-04-24 22:10 | PD.SAPROG ---
Progress Note - SubAcute DIAGNOSIS (1) Traumatic brain injury: Status: Chronic (2) Anoxic brain damage, not elsewhere classified: Status: Chronic (3) Tracheostomy status: Status: Chronic (4) Gastrostomy status: Status: Chronic (5) Chronic respiratory failure: Status: Chronic SUBJECTIVE Fever:: none GI:: none Shortness of Breath:: none GI:: no complaints Pain:: none OBJECTIVE Most recent vital signs: Last Vital Signs Temp 98.4 F 04/25/24 18:00 Pulse 67 04/25/24 21:32 Resp 19 04/25/24 18:00 BP 97/62 04/25/24 21:32 Pulse Ox 95 04/25/24 06:32 O2 Del Method Blow-by 04/25/24 06:00 O2 Flow Rate 8 04/25/24 06:32 FiO2 30 04/25/24 06:32 Neurological:: awake Speech:: none Answers questions:: sometimes (Sometimes opens eyes to command.) Respiratory:: lungs clear Cardiovascular: RRR Abdomen: soft and nontender Extremities:: deformities Decubitus:: none Tracheostomy:: to blow by Feeding per:: G tube Complaints:: none ASSESSMENT & PLAN Assessment: Stable status. No improvement in cognitive function. Diagnosis and treatment reviewed. Prognosis poor. Plan: Current treatment continued as ongoing
[2024-04-25] VITALS (9 sets, daily range): BP systolic 97–164; BP diastolic 62–76; PULSE 62–77; RESP 16–20; TEMP 36.4–37; O2SAT 95–96
[2024-04-25] MEDS: PROPRANOLOL 10 MG TABLET 20 MG GT ×2 (05:33→14:59)
[2024-04-25] MEDS: [UNRECOGNIZED DRUG - OTHER] GT (09:19)
[2024-04-25] MEDS: DEXLANSOPRAZOLE 30 MG GT (09:19)
[2024-04-25] MEDS: FISH OIL GT (09:19)
[2024-04-25] MEDS: BORAGE GT (09:19)
[2024-04-25] MEDS: [UNRECOGNIZED DRUG - OTHER] BOTH EYES ×2 (09:19→20:41)
[2024-04-25] MEDS: SENNOSIDES 8.6 MG TABLET GT ×2 (09:19→20:41)
[2024-04-25] MEDS: FLAX GT (09:19)
[2024-04-25] MEDS: TEARS BOTH EYES ×2 (09:19→20:41)
[2024-04-25] MEDS: MULTIVIT-MIN/IRON FUM/FOLIC AC 1 EACH TABLET GT (09:20)
[2024-04-25] MEDS: LOSARTAN 25 MG TABLET GT (09:20)
[2024-04-26] VITALS (11 sets, daily range): BP systolic 101–121; BP diastolic 67–76; PULSE 57–70; RESP 18–20; TEMP 36.2–36.6; O2SAT 96–98
[2024-04-26] MEDS: PROPRANOLOL 10 MG TABLET 20 MG GT ×3 (05:26→21:17)
[2024-04-26] MEDS: FISH OIL GT (08:32)
[2024-04-26] MEDS: BORAGE GT (08:32)
[2024-04-26] MEDS: DEXLANSOPRAZOLE 30 MG GT (08:32)
[2024-04-26] MEDS: LOSARTAN 25 MG TABLET GT (08:32)
[2024-04-26] MEDS: [UNRECOGNIZED DRUG - OTHER] GT (08:32)
[2024-04-26] MEDS: TEARS BOTH EYES ×2 (08:32→21:16)
[2024-04-26] MEDS: [UNRECOGNIZED DRUG - OTHER] BOTH EYES ×2 (08:32→21:16)
[2024-04-26] MEDS: FLAX GT (08:32)
[2024-04-26] MEDS: SENNOSIDES 8.6 MG TABLET GT ×2 (08:33→21:16)
[2024-04-26] MEDS: MULTIVIT-MIN/IRON FUM/FOLIC AC 1 EACH TABLET GT (08:33)
[2024-04-27] VITALS (10 sets, daily range): BP systolic 96–117; BP diastolic 53–72; PULSE 57–72; RESP 16–21; TEMP 36.3–36.8; O2SAT 96–98
[2024-04-27] MEDS: PROPRANOLOL 10 MG TABLET 20 MG GT ×2 (05:35→14:22)
[2024-04-27] MEDS: FLAX GT (08:56)
[2024-04-27] MEDS: [UNRECOGNIZED DRUG - OTHER] GT (08:56)
[2024-04-27] MEDS: LOSARTAN 25 MG TABLET GT (08:56)
[2024-04-27] MEDS: [UNRECOGNIZED DRUG - OTHER] BOTH EYES ×2 (08:56→20:50)
[2024-04-27] MEDS: TEARS BOTH EYES ×2 (08:56→20:50)
[2024-04-27] MEDS: FISH OIL GT (08:56)
[2024-04-27] MEDS: BORAGE GT (08:56)
[2024-04-27] MEDS: DEXLANSOPRAZOLE 30 MG GT (08:56)
[2024-04-27] MEDS: SENNOSIDES 8.6 MG TABLET GT ×2 (08:57→20:50)
[2024-04-27] MEDS: MULTIVIT-MIN/IRON FUM/FOLIC AC 1 EACH TABLET GT (08:57)
[2024-04-28] VITALS (10 sets, daily range): BP systolic 97–137; BP diastolic 54–76; PULSE 57–73; RESP 16–20; TEMP 36.3–36.9; O2SAT 95–98
[2024-04-28] MEDS: PROPRANOLOL 10 MG TABLET 20 MG GT ×3 (05:09→20:33)
[2024-04-28] MEDS: [UNRECOGNIZED DRUG - OTHER] BOTH EYES ×2 (08:14→20:33)
[2024-04-28] MEDS: TEARS BOTH EYES ×2 (08:14→20:33)
[2024-04-28] MEDS: DEXLANSOPRAZOLE 30 MG GT (08:15)
[2024-04-28] MEDS: BORAGE GT (08:15)
[2024-04-28] MEDS: FLAX GT (08:15)
[2024-04-28] MEDS: [UNRECOGNIZED DRUG - OTHER] GT (08:15)
[2024-04-28] MEDS: FISH OIL GT (08:15)
[2024-04-28] MEDS: MULTIVIT-MIN/IRON FUM/FOLIC AC 1 EACH TABLET GT (08:16)
[2024-04-28] MEDS: SENNOSIDES 8.6 MG TABLET GT ×2 (08:16→20:33)
--- NOTE | 2024-04-28 13:30 | PD.SAPROG ---
Progress Note - SubAcute DIAGNOSIS (1) Traumatic brain injury: Status: Chronic (2) Anoxic brain damage, not elsewhere classified: Status: Chronic (3) Tracheostomy status: Status: Chronic (4) Gastrostomy status: Status: Chronic (5) Chronic respiratory failure: Status: Chronic SUBJECTIVE Fever:: none GI:: none Shortness of Breath:: none GI:: no complaints Pain:: none OBJECTIVE Most recent vital signs: Last Vital Signs Temp 97.7 F 05/02/24 06:00 Pulse 73 05/02/24 21:52 Resp 18 05/02/24 06:40 BP 114/73 05/02/24 21:52 Pulse Ox 96 05/02/24 06:40 O2 Del Method Blow-by 05/02/24 06:00 O2 Flow Rate 10 05/02/24 06:40 FiO2 35 05/02/24 06:40 Neurological:: awake Speech:: none Answers questions:: sometimes (Sometimes opens eyes to command.) Respiratory:: lungs clear Cardiovascular: RRR Abdomen: soft and nontender Extremities:: deformities Decubitus:: none Tracheostomy:: to blow by Feeding per:: G tube Complaints:: none ASSESSMENT & PLAN Assessment: Stable status. No improvement in cognitive function. Diagnosis and treatment reviewed. Prognosis poor. Plan: Current treatment continued as ongoing
[2024-04-29] VITALS (9 sets, daily range): BP systolic 97–121; BP diastolic 53–75; PULSE 55–80; RESP 18–20; TEMP 36.3–36.8; O2SAT 96–98
[2024-04-29] MEDS: PROPRANOLOL 10 MG TABLET 20 MG GT ×2 (05:26→21:06)
[2024-04-29] MEDS: MULTIVIT-MIN/IRON FUM/FOLIC AC 1 EACH TABLET GT (09:03)
[2024-04-29] MEDS: [UNRECOGNIZED DRUG - OTHER] GT (09:03)
[2024-04-29] MEDS: BORAGE GT (09:03)
[2024-04-29] MEDS: FISH OIL GT (09:03)
[2024-04-29] MEDS: FLAX GT (09:03)
[2024-04-29] MEDS: SENNOSIDES 8.6 MG TABLET GT ×2 (09:03→20:49)
[2024-04-29] MEDS: TEARS BOTH EYES ×2 (09:03→20:49)
[2024-04-29] MEDS: [UNRECOGNIZED DRUG - OTHER] BOTH EYES ×2 (09:03→20:49)
[2024-04-29] MEDS: DEXLANSOPRAZOLE 30 MG GT (09:03)
[2024-04-29] MEDS: ACETAMINOPHEN 325 MG TABLET 650 MG GT (09:04)
[2024-04-30] VITALS (10 sets, daily range): BP systolic 90–116; BP diastolic 54–71; PULSE 52–74; RESP 17–20; TEMP 36.3–36.8; O2SAT 94–99
[2024-04-30] MEDS: FLAX GT (09:40)
[2024-04-30] MEDS: BORAGE GT (09:40)
[2024-04-30] MEDS: TEARS BOTH EYES ×2 (09:40→21:40)
[2024-04-30] MEDS: DEXLANSOPRAZOLE 30 MG GT (09:40)
[2024-04-30] MEDS: [UNRECOGNIZED DRUG - OTHER] BOTH EYES ×2 (09:40→21:40)
[2024-04-30] MEDS: [UNRECOGNIZED DRUG - OTHER] GT (09:40)
[2024-04-30] MEDS: SENNOSIDES 8.6 MG TABLET GT ×2 (09:40→21:41)
[2024-04-30] MEDS: FISH OIL GT (09:40)
[2024-04-30] MEDS: MULTIVIT-MIN/IRON FUM/FOLIC AC 1 EACH TABLET GT (09:40)
[2024-04-30] MEDS: LOSARTAN 25 MG TABLET GT (09:41)
[2024-04-30] MEDS: PROPRANOLOL 10 MG TABLET 20 MG GT ×2 (14:27→21:40)
[2024-04-30] MEDS: CARBAMIDE PEROXIDE OTIC SOL 15 ML BTL 5 DROP BOTH EARS (21:40)
[2024-04-30] MEDS: MAGNESIUM HYDROXIDE 30 ML ORAL SUSP ML GT (21:42)
[2024-05-01] VITALS (10 sets, daily range): BP systolic 93–124; BP diastolic 58–77; PULSE 55–79; RESP 18; TEMP 36.4–36.6; O2SAT 94–98
[2024-05-01] MEDS: PROPRANOLOL 10 MG TABLET 20 MG GT ×3 (05:19→21:03)
[2024-05-01] MEDS: CARBAMIDE PEROXIDE OTIC SOL 15 ML BTL 5 DROP BOTH EARS ×2 (08:49→21:02)
[2024-05-01] MEDS: BORAGE GT (08:50)
[2024-05-01] MEDS: FISH OIL GT (08:50)
[2024-05-01] MEDS: [UNRECOGNIZED DRUG - OTHER] BOTH EYES ×2 (08:50→21:02)
[2024-05-01] MEDS: TEARS BOTH EYES ×2 (08:50→21:02)
[2024-05-01] MEDS: DEXLANSOPRAZOLE 30 MG GT (08:50)
[2024-05-01] MEDS: FLAX GT (08:50)
[2024-05-01] MEDS: [UNRECOGNIZED DRUG - OTHER] GT (08:50)
[2024-05-01] MEDS: SENNOSIDES 8.6 MG TABLET GT ×2 (08:52→21:02)
[2024-05-01] MEDS: MULTIVIT-MIN/IRON FUM/FOLIC AC 1 EACH TABLET GT (08:52)
[2024-05-02] VITALS (8 sets, daily range): BP systolic 96–114; BP diastolic 59–73; PULSE 52–83; RESP 18–20; TEMP 36.5–36.9; O2SAT 95–99
[2024-05-02] MEDS: [UNRECOGNIZED DRUG - OTHER] BOTH EYES ×2 (08:40→20:48)
[2024-05-02] MEDS: CARBAMIDE PEROXIDE OTIC SOL 15 ML BTL 5 DROP BOTH EARS ×2 (08:40→20:48)
[2024-05-02] MEDS: TEARS BOTH EYES ×2 (08:40→20:48)
[2024-05-02] MEDS: FISH OIL GT (08:41)
[2024-05-02] MEDS: BORAGE GT (08:41)
[2024-05-02] MEDS: FLAX GT (08:41)
[2024-05-02] MEDS: DEXLANSOPRAZOLE 30 MG GT (08:41)
[2024-05-02] MEDS: [UNRECOGNIZED DRUG - OTHER] GT (08:41)
[2024-05-02] MEDS: MULTIVIT-MIN/IRON FUM/FOLIC AC 1 EACH TABLET GT (08:42)
[2024-05-02] MEDS: SENNOSIDES 8.6 MG TABLET GT ×2 (08:43→20:48)
[2024-05-02] MEDS: ACETAMINOPHEN 325 MG TABLET 650 MG GT (20:30)
[2024-05-02] MEDS: PROPRANOLOL 10 MG TABLET 20 MG GT (21:52)
[2024-05-03] VITALS (10 sets, daily range): BP systolic 99–126; BP diastolic 56–68; PULSE 56–72; RESP 16–20; TEMP 36.2–36.5; O2SAT 93–97
[2024-05-03] MEDS: CARBAMIDE PEROXIDE OTIC SOL 15 ML BTL 5 DROP BOTH EARS (09:50)
[2024-05-03] MEDS: DEXLANSOPRAZOLE 30 MG GT (09:51)
[2024-05-03] MEDS: TEARS BOTH EYES ×2 (09:51→21:41)
[2024-05-03] MEDS: [UNRECOGNIZED DRUG - OTHER] BOTH EYES ×2 (09:51→21:41)
[2024-05-03] MEDS: FISH OIL GT (09:52)
[2024-05-03] MEDS: [UNRECOGNIZED DRUG - OTHER] GT (09:52)
[2024-05-03] MEDS: FLAX GT (09:52)
[2024-05-03] MEDS: BORAGE GT (09:52)
[2024-05-03] MEDS: MULTIVIT-MIN/IRON FUM/FOLIC AC 1 EACH TABLET GT (09:53)
[2024-05-03] MEDS: SENNOSIDES 8.6 MG TABLET GT ×2 (09:55→21:41)
[2024-05-03] MEDS: PROPRANOLOL 10 MG TABLET 20 MG GT (21:42)
[2024-05-04] VITALS (10 sets, daily range): BP systolic 97–119; BP diastolic 60–73; PULSE 52–70; RESP 16–20; TEMP 36.1–36.6; O2SAT 94–97
[2024-05-04] MEDS: TEARS BOTH EYES ×2 (09:45→21:31)
[2024-05-04] MEDS: [UNRECOGNIZED DRUG - OTHER] BOTH EYES ×2 (09:45→21:31)
[2024-05-04] MEDS: MULTIVIT-MIN/IRON FUM/FOLIC AC 1 EACH TABLET GT (09:46)
[2024-05-04] MEDS: [UNRECOGNIZED DRUG - OTHER] GT (09:46)
[2024-05-04] MEDS: BORAGE GT (09:46)
[2024-05-04] MEDS: FLAX GT (09:46)
[2024-05-04] MEDS: DEXLANSOPRAZOLE 30 MG GT (09:46)
[2024-05-04] MEDS: FISH OIL GT (09:46)
[2024-05-04] MEDS: SENNOSIDES 8.6 MG TABLET GT ×2 (09:46→21:31)
[2024-05-04] MEDS: PROPRANOLOL 10 MG TABLET 20 MG GT ×2 (14:00→21:32)
[2024-05-05] VITALS (11 sets, daily range): BP systolic 105–144; BP diastolic 59–75; PULSE 52–83; RESP 18–20; TEMP 36.2–36.9; O2SAT 97–98
[2024-05-05] MEDS: PROPRANOLOL 10 MG TABLET 20 MG GT ×3 (05:13→21:40)
[2024-05-05] MEDS: FISH OIL GT (08:44)
[2024-05-05] MEDS: [UNRECOGNIZED DRUG - OTHER] GT (08:44)
[2024-05-05] MEDS: BORAGE GT (08:44)
[2024-05-05] MEDS: FLAX GT (08:44)
[2024-05-05] MEDS: TEARS BOTH EYES ×2 (08:44→20:51)
[2024-05-05] MEDS: [UNRECOGNIZED DRUG - OTHER] BOTH EYES ×2 (08:44→20:51)
[2024-05-05] MEDS: DEXLANSOPRAZOLE 30 MG GT (08:44)
[2024-05-05] MEDS: SENNOSIDES 8.6 MG TABLET GT ×2 (08:45→20:51)
[2024-05-05] MEDS: MULTIVIT-MIN/IRON FUM/FOLIC AC 1 EACH TABLET GT (08:45)
[2024-05-05] MEDS: LOSARTAN 25 MG TABLET GT (08:45)
[2024-05-06] VITALS (9 sets, daily range): BP systolic 99–112; BP diastolic 63–71; PULSE 64–90; RESP 18–22; TEMP 36.5–37.1; O2SAT 89–98
[2024-05-06] MEDS: PROPRANOLOL 10 MG TABLET 20 MG GT ×2 (05:20→21:17)
[2024-05-06] MEDS: [UNRECOGNIZED DRUG - OTHER] GT (08:56)
[2024-05-06] MEDS: DEXLANSOPRAZOLE 30 MG GT (08:56)
[2024-05-06] MEDS: FISH OIL GT (08:56)
[2024-05-06] MEDS: FLAX GT (08:56)
[2024-05-06] MEDS: [UNRECOGNIZED DRUG - OTHER] BOTH EYES ×2 (08:56→21:16)
[2024-05-06] MEDS: TEARS BOTH EYES ×2 (08:56→21:16)
[2024-05-06] MEDS: BORAGE GT (08:56)
[2024-05-06] MEDS: MULTIVIT-MIN/IRON FUM/FOLIC AC 1 EACH TABLET GT (08:58)
[2024-05-06] MEDS: SENNOSIDES 8.6 MG TABLET GT ×2 (08:58→21:16)
[2024-05-06] MEDS: MAGNESIUM HYDROXIDE 30 ML ORAL SUSP ML GT (21:17)
--- NOTE | 2024-05-06 22:10 | PD.SAPROG ---
Progress Note - SubAcute DIAGNOSIS (1) Traumatic brain injury: Status: Chronic (2) Anoxic brain damage, not elsewhere classified: Status: Chronic (3) Tracheostomy status: Status: Chronic (4) Gastrostomy status: Status: Chronic (5) Chronic respiratory failure: Status: Chronic SUBJECTIVE Fever:: none GI:: none Shortness of Breath:: none GI:: no complaints Pain:: none OBJECTIVE Most recent vital signs: Last Vital Signs Temp 97.7 F 05/07/24 17:42 Pulse 75 05/07/24 21:03 Resp 20 05/07/24 17:42 BP 98/63 05/07/24 21:03 Pulse Ox 97 05/07/24 06:30 O2 Del Method Blow-by 05/06/24 18:00 O2 Flow Rate 10 05/07/24 06:30 FiO2 35 05/07/24 06:30 Neurological:: awake Speech:: none Answers questions:: sometimes (Sometimes opens eyes to command.) Respiratory:: lungs clear Cardiovascular: RRR Abdomen: soft and nontender Extremities:: deformities Decubitus:: none Tracheostomy:: to blow by Feeding per:: G tube Complaints:: none ASSESSMENT & PLAN Assessment: Stable status. No improvement in cognitive function. Diagnosis and treatment reviewed. Prognosis poor. Plan: Current treatment continued as ongoing
[2024-05-07] VITALS (11 sets, daily range): BP systolic 98–106; BP diastolic 52–72; PULSE 52–75; RESP 18–21; TEMP 36.4–37.1; O2SAT 96–99
[2024-05-07] MEDS: PROPRANOLOL 10 MG TABLET 20 MG GT (05:44)
[2024-05-07] MEDS: BORAGE GT (08:14)
[2024-05-07] MEDS: DEXLANSOPRAZOLE 30 MG GT (08:14)
[2024-05-07] MEDS: TEARS BOTH EYES ×2 (08:14→20:57)
[2024-05-07] MEDS: FLAX GT (08:14)
[2024-05-07] MEDS: FISH OIL GT (08:14)
[2024-05-07] MEDS: [UNRECOGNIZED DRUG - OTHER] GT (08:14)
[2024-05-07] MEDS: [UNRECOGNIZED DRUG - OTHER] BOTH EYES ×2 (08:14→20:57)
[2024-05-07] MEDS: MULTIVIT-MIN/IRON FUM/FOLIC AC 1 EACH TABLET GT (08:15)
[2024-05-07] MEDS: SENNOSIDES 8.6 MG TABLET GT ×2 (08:15→20:57)
--- NOTE | 2024-05-07 14:09 | PC.SS ---
Room visit: Resident is laying in bed with head of the bed elevated with call light properly placed with no signs of distress. Resident has no changes in care or condition as he remains on blow by with trach in place and GT for medication and nutrition. He will continue to have all subacute care needs met by staff, as he is unable to make needs known. This SSD will make daily contact with resident and offer support as needed.
[2024-05-08] VITALS (10 sets, daily range): BP systolic 97–116; BP diastolic 58–75; PULSE 52–70; RESP 16–20; TEMP 36.1–36.7; O2SAT 95–99
[2024-05-08] MEDS: PROPRANOLOL 10 MG TABLET 20 MG GT ×2 (05:10→14:00)
[2024-05-08] MEDS: [UNRECOGNIZED DRUG - OTHER] BOTH EYES ×2 (09:10→20:53)
[2024-05-08] MEDS: [UNRECOGNIZED DRUG - OTHER] GT (09:10)
[2024-05-08] MEDS: TEARS BOTH EYES ×2 (09:10→20:53)
[2024-05-08] MEDS: FLAX GT (09:10)
[2024-05-08] MEDS: DEXLANSOPRAZOLE 30 MG GT (09:10)
[2024-05-08] MEDS: FISH OIL GT (09:10)
[2024-05-08] MEDS: SENNOSIDES 8.6 MG TABLET GT ×2 (09:10→20:53)
[2024-05-08] MEDS: LOSARTAN 25 MG TABLET GT (09:10)
[2024-05-08] MEDS: BORAGE GT (09:10)
[2024-05-08] MEDS: MULTIVIT-MIN/IRON FUM/FOLIC AC 1 EACH TABLET GT (09:10)
[2024-05-08] MEDS: ACETAMINOPHEN 325 MG TABLET 650 MG GT (09:26)
[2024-05-09] VITALS (9 sets, daily range): BP systolic 92–131; BP diastolic 58–82; PULSE 52–74; RESP 18–20; TEMP 36.5–36.7; O2SAT 95–100
[2024-05-09] MEDS: PROPRANOLOL 10 MG TABLET 20 MG GT ×2 (05:19→21:47)
[2024-05-09] MEDS: FISH OIL GT (08:18)
[2024-05-09] MEDS: FLAX GT (08:18)
[2024-05-09] MEDS: DEXLANSOPRAZOLE 30 MG GT (08:18)
[2024-05-09] MEDS: BORAGE GT (08:18)
[2024-05-09] MEDS: TEARS BOTH EYES ×2 (08:18→21:47)
[2024-05-09] MEDS: [UNRECOGNIZED DRUG - OTHER] BOTH EYES ×2 (08:18→21:47)
[2024-05-09] MEDS: [UNRECOGNIZED DRUG - OTHER] GT (08:18)
[2024-05-09] MEDS: MULTIVIT-MIN/IRON FUM/FOLIC AC 1 EACH TABLET GT (08:19)
[2024-05-09] MEDS: SENNOSIDES 8.6 MG TABLET GT ×2 (08:19→21:47)
[2024-05-10] VITALS (11 sets, daily range): BP systolic 98–126; BP diastolic 60–89; PULSE 55–80; RESP 18–20; TEMP 36.4–36.8; O2SAT 98
[2024-05-10] MEDS: PROPRANOLOL 10 MG TABLET 20 MG GT ×3 (05:29→21:22)
[2024-05-10] MEDS: DEXLANSOPRAZOLE 30 MG GT (08:27)
[2024-05-10] MEDS: [UNRECOGNIZED DRUG - OTHER] BOTH EYES ×2 (08:27→20:24)
[2024-05-10] MEDS: TEARS BOTH EYES ×2 (08:27→20:24)
[2024-05-10] MEDS: BORAGE GT (08:28)
[2024-05-10] MEDS: MULTIVIT-MIN/IRON FUM/FOLIC AC 1 EACH TABLET GT (08:28)
[2024-05-10] MEDS: FLAX GT (08:28)
[2024-05-10] MEDS: FISH OIL GT (08:28)
[2024-05-10] MEDS: [UNRECOGNIZED DRUG - OTHER] GT (08:28)
[2024-05-10] MEDS: SENNOSIDES 8.6 MG TABLET GT ×2 (08:29→20:24)
--- NOTE | 2024-05-10 23:29 | PD.SAPROG ---
Progress Note - SubAcute DIAGNOSIS (1) Traumatic brain injury: Status: Chronic (2) Anoxic brain damage, not elsewhere classified: Status: Chronic (3) Tracheostomy status: Status: Chronic (4) Gastrostomy status: Status: Chronic (5) Chronic respiratory failure: Status: Chronic SUBJECTIVE Fever:: none GI:: none Shortness of Breath:: none GI:: no complaints Pain:: none OBJECTIVE Most recent vital signs: Last Vital Signs Temp 97.6 F 05/10/24 18:00 Pulse 69 05/10/24 23:12 Resp 20 05/10/24 23:12 BP 126/89 H 05/10/24 21:22 Pulse Ox 98 05/10/24 23:12 O2 Del Method Blow-by 05/10/24 05:19 O2 Flow Rate 10 05/10/24 23:12 FiO2 35 05/10/24 23:12 Neurological:: awake Speech:: none Answers questions:: sometimes (Sometimes opens eyes to command.) Respiratory:: lungs clear Cardiovascular: RRR Abdomen: soft and nontender Extremities:: deformities Decubitus:: none Tracheostomy:: to blow by Feeding per:: G tube Complaints:: none ASSESSMENT & PLAN Assessment: Stable status. No improvement in cognitive function. Diagnosis and treatment reviewed. Prognosis poor. Plan: Current treatment continued as ongoing
[2024-05-11] VITALS (10 sets, daily range): BP systolic 93–135; BP diastolic 53–82; PULSE 57–80; RESP 17–32; TEMP 36.1–36.4; O2SAT 98–99
[2024-05-11] MEDS: PROPRANOLOL 10 MG TABLET 20 MG GT ×2 (05:38→21:27)
[2024-05-11] MEDS: TEARS BOTH EYES ×2 (08:29→21:26)
[2024-05-11] MEDS: [UNRECOGNIZED DRUG - OTHER] BOTH EYES ×2 (08:29→21:26)
[2024-05-11] MEDS: BORAGE GT (08:29)
[2024-05-11] MEDS: [UNRECOGNIZED DRUG - OTHER] GT (08:29)
[2024-05-11] MEDS: FLAX GT (08:29)
[2024-05-11] MEDS: DEXLANSOPRAZOLE 30 MG GT (08:29)
[2024-05-11] MEDS: FISH OIL GT (08:29)
[2024-05-11] MEDS: SENNOSIDES 8.6 MG TABLET GT ×2 (08:30→21:27)
[2024-05-11] MEDS: MULTIVIT-MIN/IRON FUM/FOLIC AC 1 EACH TABLET GT (08:30)
[2024-05-11] MEDS: LOSARTAN 25 MG TABLET GT (08:30)
[2024-05-12] VITALS (9 sets, daily range): BP systolic 85–119; BP diastolic 56–77; PULSE 56–75; RESP 18–21; TEMP 36.2–36.8; O2SAT 97–98
[2024-05-12] MEDS: PROPRANOLOL 10 MG TABLET 20 MG GT ×2 (05:34→21:12)
[2024-05-12] MEDS: [UNRECOGNIZED DRUG - OTHER] GT (08:29)
[2024-05-12] MEDS: BORAGE GT (08:29)
[2024-05-12] MEDS: FLAX GT (08:29)
[2024-05-12] MEDS: [UNRECOGNIZED DRUG - OTHER] BOTH EYES ×2 (08:29→21:12)
[2024-05-12] MEDS: DEXLANSOPRAZOLE 30 MG GT (08:29)
[2024-05-12] MEDS: FISH OIL GT (08:29)
[2024-05-12] MEDS: TEARS BOTH EYES ×2 (08:29→21:12)
[2024-05-12] MEDS: SENNOSIDES 8.6 MG TABLET GT ×2 (08:30→21:12)
[2024-05-12] MEDS: MULTIVIT-MIN/IRON FUM/FOLIC AC 1 EACH TABLET GT (08:30)
--- NOTE | 2024-05-12 13:55 | PD.SAPROG ---
Progress Note - SubAcute DIAGNOSIS (1) Traumatic brain injury: Status: Chronic (2) Anoxic brain damage, not elsewhere classified: Status: Chronic (3) Tracheostomy status: Status: Chronic (4) Gastrostomy status: Status: Chronic (5) Chronic respiratory failure: Status: Chronic SUBJECTIVE Fever:: none GI:: none Shortness of Breath:: none GI:: no complaints Pain:: none OBJECTIVE Most recent vital signs: Last Vital Signs Temp 97.2 F 05/17/24 12:00 Pulse 50 L 05/17/24 13:26 Resp 19 05/17/24 12:00 BP 108/64 05/17/24 13:26 Pulse Ox 99 05/17/24 06:45 O2 Del Method Blow-by 05/16/24 17:21 O2 Flow Rate 10 05/17/24 06:45 FiO2 35 05/17/24 06:45 Neurological:: awake Speech:: none Answers questions:: sometimes (Sometimes opens eyes to command.) Respiratory:: lungs clear Cardiovascular: RRR Abdomen: soft and nontender Extremities:: deformities Decubitus:: none Tracheostomy:: to blow by Feeding per:: G tube Complaints:: none ASSESSMENT & PLAN Assessment: Stable status. No improvement in cognitive function. Diagnosis and treatment reviewed. Prognosis poor. Plan: Current treatment continued as ongoing
[2024-05-13] VITALS (9 sets, daily range): BP systolic 98–114; BP diastolic 56–67; PULSE 58–82; RESP 18–21; TEMP 36.1–36.9; O2SAT 96–100
[2024-05-13] MEDS: PROPRANOLOL 10 MG TABLET 20 MG GT ×2 (05:42→21:10)
[2024-05-13] MEDS: FISH OIL GT (09:03)
[2024-05-13] MEDS: [UNRECOGNIZED DRUG - OTHER] BOTH EYES ×2 (09:03→20:43)
[2024-05-13] MEDS: FLAX GT (09:03)
[2024-05-13] MEDS: BORAGE GT (09:03)
[2024-05-13] MEDS: TEARS BOTH EYES ×2 (09:03→20:43)
[2024-05-13] MEDS: [UNRECOGNIZED DRUG - OTHER] GT (09:03)
[2024-05-13] MEDS: DEXLANSOPRAZOLE 30 MG GT (09:03)
[2024-05-13] MEDS: MULTIVIT-MIN/IRON FUM/FOLIC AC 1 EACH TABLET GT (09:04)
[2024-05-13] MEDS: SENNOSIDES 8.6 MG TABLET GT ×2 (09:04→20:43)
[2024-05-14] VITALS (10 sets, daily range): BP systolic 100–121; BP diastolic 64–78; PULSE 58–74; RESP 18–20; TEMP 36.3–36.8; O2SAT 94–98
[2024-05-14] MEDS: PROPRANOLOL 10 MG TABLET 20 MG GT ×3 (05:06→20:34)
[2024-05-14] MEDS: BORAGE GT (08:07)
[2024-05-14] MEDS: [UNRECOGNIZED DRUG - OTHER] BOTH EYES ×2 (08:07→20:34)
[2024-05-14] MEDS: TEARS BOTH EYES ×2 (08:07→20:34)
[2024-05-14] MEDS: FISH OIL GT (08:07)
[2024-05-14] MEDS: ACETAMINOPHEN 325 MG TABLET 650 MG GT (08:07)
[2024-05-14] MEDS: DEXLANSOPRAZOLE 30 MG GT (08:07)
[2024-05-14] MEDS: SENNOSIDES 8.6 MG TABLET GT ×2 (08:07→20:34)
[2024-05-14] MEDS: MULTIVIT-MIN/IRON FUM/FOLIC AC 1 EACH TABLET GT (08:07)
[2024-05-14] MEDS: [UNRECOGNIZED DRUG - OTHER] GT (08:07)
[2024-05-14] MEDS: FLAX GT (08:07)
[2024-05-14] MEDS: MAGNESIUM HYDROXIDE 30 ML ORAL SUSP ML GT (08:09)
--- NOTE | 2024-05-14 14:33 | PC.SS ---
Room visit: Resident is laying in bed with head of the bed elevated with call light properly placed with no signs of distress. Resident is on blow by with trach in place, GT in place for medication and nutrition. Resident will remain in current care and will have all subacute care needs met by staff. SSD will continue to make daily room visits and offer support as needed.
[2024-05-15] VITALS (10 sets, daily range): BP systolic 95–116; BP diastolic 58–69; PULSE 51–97; RESP 17–19; TEMP 36–36.4; O2SAT 98–99
[2024-05-15] MEDS: TEARS BOTH EYES ×2 (08:43→21:19)
[2024-05-15] MEDS: BORAGE GT (08:43)
[2024-05-15] MEDS: [UNRECOGNIZED DRUG - OTHER] GT (08:43)
[2024-05-15] MEDS: [UNRECOGNIZED DRUG - OTHER] BOTH EYES ×2 (08:43→21:19)
[2024-05-15] MEDS: DEXLANSOPRAZOLE 30 MG GT (08:43)
[2024-05-15] MEDS: FISH OIL GT (08:43)
[2024-05-15] MEDS: FLAX GT (08:43)
[2024-05-15] MEDS: SENNOSIDES 8.6 MG TABLET GT ×2 (08:44→21:20)
[2024-05-15] MEDS: MULTIVIT-MIN/IRON FUM/FOLIC AC 1 EACH TABLET GT (08:44)
[2024-05-15] MEDS: PROPRANOLOL 10 MG TABLET 20 MG GT ×2 (14:10→21:21)
[2024-05-16] VITALS (10 sets, daily range): BP systolic 102–143; BP diastolic 67–79; PULSE 57–83; RESP 17–19; TEMP 36.1–36.6; O2SAT 92–97
[2024-05-16] MEDS: PROPRANOLOL 10 MG TABLET 20 MG GT ×3 (05:31→21:14)
[2024-05-16] MEDS: BORAGE GT (08:46)
[2024-05-16] MEDS: LOSARTAN 25 MG TABLET GT (08:46)
[2024-05-16] MEDS: [UNRECOGNIZED DRUG - OTHER] BOTH EYES ×2 (08:46→20:09)
[2024-05-16] MEDS: [UNRECOGNIZED DRUG - OTHER] GT (08:46)
[2024-05-16] MEDS: FLAX GT (08:46)
[2024-05-16] MEDS: TEARS BOTH EYES ×2 (08:46→20:09)
[2024-05-16] MEDS: DEXLANSOPRAZOLE 30 MG GT (08:46)
[2024-05-16] MEDS: FISH OIL GT (08:46)
[2024-05-16] MEDS: MULTIVIT-MIN/IRON FUM/FOLIC AC 1 EACH TABLET GT (08:47)
[2024-05-16] MEDS: SENNOSIDES 8.6 MG TABLET GT ×2 (08:47→20:09)
[2024-05-16] MEDS: ACETAMINOPHEN 325 MG TABLET 650 MG GT (20:10)
[2024-05-17] VITALS (9 sets, daily range): BP systolic 94–125; BP diastolic 60–68; PULSE 50–77; RESP 18–19; TEMP 36.1–36.6; O2SAT 97–99
[2024-05-17] MEDS: PROPRANOLOL 10 MG TABLET 20 MG GT ×2 (05:37→21:12)
[2024-05-17] MEDS: TEARS BOTH EYES ×2 (08:38→20:53)
[2024-05-17] MEDS: DEXLANSOPRAZOLE 30 MG GT (08:38)
[2024-05-17] MEDS: BORAGE GT (08:38)
[2024-05-17] MEDS: [UNRECOGNIZED DRUG - OTHER] BOTH EYES ×2 (08:38→20:53)
[2024-05-17] MEDS: FLAX GT (08:38)
[2024-05-17] MEDS: FISH OIL GT (08:38)
[2024-05-17] MEDS: [UNRECOGNIZED DRUG - OTHER] GT (08:38)
[2024-05-17] MEDS: ACETAMINOPHEN 325 MG TABLET 650 MG GT (08:40)
[2024-05-17] MEDS: MAGNESIUM HYDROXIDE 30 ML ORAL SUSP ML GT (08:40)
[2024-05-17] MEDS: SENNOSIDES 8.6 MG TABLET GT ×2 (08:40→20:53)
[2024-05-17] MEDS: MULTIVIT-MIN/IRON FUM/FOLIC AC 1 EACH TABLET GT (08:40)
[2024-05-18] VITALS (10 sets, daily range): BP systolic 97–137; BP diastolic 60–77; PULSE 58–75; RESP 17–18; TEMP 36.2–36.5; O2SAT 94–99
[2024-05-18] MEDS: PROPRANOLOL 10 MG TABLET 20 MG GT ×3 (05:25→21:27)
[2024-05-18] MEDS: FLAX GT (08:11)
[2024-05-18] MEDS: TEARS BOTH EYES ×2 (08:11→20:25)
[2024-05-18] MEDS: DEXLANSOPRAZOLE 30 MG GT (08:11)
[2024-05-18] MEDS: FISH OIL GT (08:11)
[2024-05-18] MEDS: BORAGE GT (08:11)
[2024-05-18] MEDS: [UNRECOGNIZED DRUG - OTHER] BOTH EYES ×2 (08:11→20:25)
[2024-05-18] MEDS: [UNRECOGNIZED DRUG - OTHER] GT (08:11)
[2024-05-18] MEDS: MULTIVIT-MIN/IRON FUM/FOLIC AC 1 EACH TABLET GT (08:12)
[2024-05-18] MEDS: SENNOSIDES 8.6 MG TABLET GT ×2 (08:12→20:25)
[2024-05-19] VITALS (10 sets, daily range): BP systolic 91–122; BP diastolic 57–77; PULSE 59–82; RESP 18–24; TEMP 36.2–36.8; O2SAT 98–99
[2024-05-19] MEDS: TEARS BOTH EYES ×2 (08:34→20:20)
[2024-05-19] MEDS: [UNRECOGNIZED DRUG - OTHER] BOTH EYES ×2 (08:34→20:20)
[2024-05-19] MEDS: FLAX GT (08:36)
[2024-05-19] MEDS: BORAGE GT (08:36)
[2024-05-19] MEDS: FISH OIL GT (08:36)
[2024-05-19] MEDS: [UNRECOGNIZED DRUG - OTHER] GT (08:36)
[2024-05-19] MEDS: DEXLANSOPRAZOLE 30 MG GT (08:36)
[2024-05-19] MEDS: SENNOSIDES 8.6 MG TABLET GT ×2 (08:37→20:20)
[2024-05-19] MEDS: MULTIVIT-MIN/IRON FUM/FOLIC AC 1 EACH TABLET GT (08:37)
[2024-05-19] MEDS: PROPRANOLOL 10 MG TABLET 20 MG GT (21:35)
[2024-05-20] VITALS (10 sets, daily range): BP systolic 96–129; BP diastolic 55–77; PULSE 53–75; RESP 16–22; TEMP 36–37; O2SAT 97–98
[2024-05-20] MEDS: PROPRANOLOL 10 MG TABLET 20 MG GT ×3 (05:35→21:06)
[2024-05-20] MEDS: [UNRECOGNIZED DRUG - OTHER] BOTH EYES ×2 (08:08→20:32)
[2024-05-20] MEDS: TEARS BOTH EYES ×2 (08:08→20:32)
[2024-05-20] MEDS: [UNRECOGNIZED DRUG - OTHER] GT (08:09)
[2024-05-20] MEDS: SENNOSIDES 8.6 MG TABLET GT ×2 (08:09→20:33)
[2024-05-20] MEDS: LOSARTAN 25 MG TABLET GT (08:09)
[2024-05-20] MEDS: DEXLANSOPRAZOLE 30 MG GT (08:09)
[2024-05-20] MEDS: FLAX GT (08:09)
[2024-05-20] MEDS: MULTIVIT-MIN/IRON FUM/FOLIC AC 1 EACH TABLET GT (08:09)
[2024-05-20] MEDS: FISH OIL GT (08:09)
[2024-05-20] MEDS: BORAGE GT (08:09)
[2024-05-21] VITALS (10 sets, daily range): BP systolic 96–118; BP diastolic 60–70; PULSE 52–75; RESP 16–20; TEMP 36.4–36.7; O2SAT 96–98
[2024-05-21] MEDS: MAGNESIUM HYDROXIDE 30 ML ORAL SUSP ML GT (00:14)
[2024-05-21] MEDS: PROPRANOLOL 10 MG TABLET 20 MG GT ×2 (05:10→14:16)
[2024-05-21] MEDS: FISH OIL GT (09:02)
[2024-05-21] MEDS: DEXLANSOPRAZOLE 30 MG GT (09:02)
[2024-05-21] MEDS: TEARS BOTH EYES ×2 (09:02→20:34)
[2024-05-21] MEDS: [UNRECOGNIZED DRUG - OTHER] GT (09:02)
[2024-05-21] MEDS: BORAGE GT (09:02)
[2024-05-21] MEDS: MULTIVIT-MIN/IRON FUM/FOLIC AC 1 EACH TABLET GT (09:02)
[2024-05-21] MEDS: FLAX GT (09:02)
[2024-05-21] MEDS: SENNOSIDES 8.6 MG TABLET GT ×2 (09:02→20:35)
[2024-05-21] MEDS: [UNRECOGNIZED DRUG - OTHER] BOTH EYES ×2 (09:02→20:34)
--- NOTE | 2024-05-21 23:13 | PD.SAPROG ---
Progress Note - SubAcute DIAGNOSIS (1) Traumatic brain injury: Status: Chronic (2) Anoxic brain damage, not elsewhere classified: Status: Chronic (3) Tracheostomy status: Status: Chronic (4) Gastrostomy status: Status: Chronic (5) Chronic respiratory failure: Status: Chronic SUBJECTIVE Fever:: none GI:: none Shortness of Breath:: none GI:: no complaints Pain:: none OBJECTIVE Most recent vital signs: Last Vital Signs Temp 97.6 F 05/21/24 18:00 Pulse 52 L 05/21/24 20:36 Resp 18 05/21/24 19:30 BP 118/66 05/21/24 20:36 Pulse Ox 97 05/21/24 19:30 O2 Del Method Blow-by 05/21/24 18:00 O2 Flow Rate 10 05/21/24 19:30 FiO2 35 05/21/24 19:30 Neurological:: awake Speech:: none Answers questions:: sometimes (Sometimes opens eyes to command.) Respiratory:: lungs clear Cardiovascular: RRR Abdomen: soft and nontender Extremities:: deformities Decubitus:: none Tracheostomy:: to blow by Feeding per:: G tube Complaints:: none ASSESSMENT & PLAN Assessment: Stable status. No improvement in cognitive function. Diagnosis and treatment reviewed. Prognosis poor. Plan: Current treatment continued as ongoing
[2024-05-22] VITALS (8 sets, daily range): BP systolic 106–116; BP diastolic 65–71; PULSE 57–84; RESP 16–20; TEMP 36.2–36.4; O2SAT 97–99
[2024-05-22] MEDS: PROPRANOLOL 10 MG TABLET 20 MG GT ×3 (05:15→21:54)
[2024-05-22] MEDS: FISH OIL GT (09:33)
[2024-05-22] MEDS: [UNRECOGNIZED DRUG - OTHER] BOTH EYES ×2 (09:33→20:53)
[2024-05-22] MEDS: DEXLANSOPRAZOLE 30 MG GT (09:33)
[2024-05-22] MEDS: BORAGE GT (09:33)
[2024-05-22] MEDS: FLAX GT (09:33)
[2024-05-22] MEDS: TEARS BOTH EYES ×2 (09:33→20:53)
[2024-05-22] MEDS: [UNRECOGNIZED DRUG - OTHER] GT (09:33)
[2024-05-22] MEDS: SENNOSIDES 8.6 MG TABLET GT ×2 (09:34→20:54)
[2024-05-22] MEDS: LOSARTAN 25 MG TABLET GT (09:34)
[2024-05-22] MEDS: MULTIVIT-MIN/IRON FUM/FOLIC AC 1 EACH TABLET GT (09:34)
[2024-05-23] VITALS (10 sets, daily range): BP systolic 91–112; BP diastolic 57–67; PULSE 65–92; RESP 16–20; TEMP 36.4–36.9; O2SAT 96–97
[2024-05-23] MEDS: TEARS BOTH EYES ×2 (08:51→20:59)
[2024-05-23] MEDS: FISH OIL GT (08:51)
[2024-05-23] MEDS: [UNRECOGNIZED DRUG - OTHER] GT (08:51)
[2024-05-23] MEDS: MULTIVIT-MIN/IRON FUM/FOLIC AC 1 EACH TABLET GT (08:51)
[2024-05-23] MEDS: SENNOSIDES 8.6 MG TABLET GT ×2 (08:51→21:01)
[2024-05-23] MEDS: DEXLANSOPRAZOLE 30 MG GT (08:51)
[2024-05-23] MEDS: BORAGE GT (08:51)
[2024-05-23] MEDS: FLAX GT (08:51)
[2024-05-23] MEDS: [UNRECOGNIZED DRUG - OTHER] BOTH EYES ×2 (08:51→20:59)
[2024-05-23] MEDS: PROPRANOLOL 10 MG TABLET 20 MG GT (14:09)
[2024-05-24] VITALS (12 sets, daily range): BP systolic 97–110; BP diastolic 55–72; PULSE 63–77; RESP 18–20; TEMP 36.2–37.4; O2SAT 96–98
[2024-05-24] MEDS: ACETAMINOPHEN 325 MG TABLET 650 MG GT (02:14)
--- NOTE | 2024-05-24 03:31 | PC.NURSE ---
0245-resident was hot to the touch, rectal temp. taken, temp. at 99.4F, fan is on, cover removed, HOB elevated, no s/s of distress at this time.
[2024-05-24] MEDS: PROPRANOLOL 10 MG TABLET 20 MG GT ×2 (05:20→21:09)
[2024-05-24] MEDS: TEARS BOTH EYES ×2 (08:57→21:08)
[2024-05-24] MEDS: [UNRECOGNIZED DRUG - OTHER] BOTH EYES ×2 (08:57→21:08)
[2024-05-24] MEDS: FLAX GT (08:59)
[2024-05-24] MEDS: DEXLANSOPRAZOLE 30 MG GT (08:59)
[2024-05-24] MEDS: [UNRECOGNIZED DRUG - OTHER] GT (08:59)
[2024-05-24] MEDS: FISH OIL GT (08:59)
[2024-05-24] MEDS: BORAGE GT (08:59)
[2024-05-24] MEDS: SENNOSIDES 8.6 MG TABLET GT ×2 (09:01→21:08)
[2024-05-24] MEDS: MULTIVIT-MIN/IRON FUM/FOLIC AC 1 EACH TABLET GT (09:01)
[2024-05-25] VITALS (11 sets, daily range): BP systolic 100–121; BP diastolic 65–86; PULSE 57–82; RESP 17–20; TEMP 36.4–36.8; O2SAT 96–97
[2024-05-25] MEDS: PROPRANOLOL 10 MG TABLET 20 MG GT ×2 (05:01→21:55)
[2024-05-25] MEDS: [UNRECOGNIZED DRUG - OTHER] BOTH EYES ×2 (09:18→20:32)
[2024-05-25] MEDS: TEARS BOTH EYES ×2 (09:18→20:32)
[2024-05-25] MEDS: FISH OIL GT (09:18)
[2024-05-25] MEDS: DEXLANSOPRAZOLE 30 MG GT (09:18)
[2024-05-25] MEDS: BORAGE GT (09:18)
[2024-05-25] MEDS: [UNRECOGNIZED DRUG - OTHER] GT (09:18)
[2024-05-25] MEDS: FLAX GT (09:18)
[2024-05-25] MEDS: MULTIVIT-MIN/IRON FUM/FOLIC AC 1 EACH TABLET GT (09:19)
[2024-05-25] MEDS: SENNOSIDES 8.6 MG TABLET GT ×2 (09:20→20:32)
--- NOTE | 2024-05-25 13:45 | PD.SAPROG ---
Progress Note - SubAcute DIAGNOSIS (1) Traumatic brain injury: Status: Chronic (2) Anoxic brain damage, not elsewhere classified: Status: Chronic (3) Tracheostomy status: Status: Chronic (4) Gastrostomy status: Status: Chronic (5) Chronic respiratory failure: Status: Chronic SUBJECTIVE Fever:: none GI:: none Shortness of Breath:: none GI:: no complaints Pain:: none OBJECTIVE Most recent vital signs: Last Vital Signs Temp 98.0 F 05/27/24 00:00 Pulse 64 05/27/24 00:00 Resp 18 05/27/24 00:00 BP 105/68 05/27/24 00:00 Pulse Ox 95 05/26/24 18:05 O2 Del Method Blow-by 05/26/24 05:51 O2 Flow Rate 10 05/26/24 18:05 FiO2 35 05/26/24 18:05 Neurological:: awake Speech:: none Answers questions:: sometimes (Sometimes opens eyes to command.) Respiratory:: lungs clear Cardiovascular: RRR Abdomen: soft and nontender Extremities:: deformities Decubitus:: none Tracheostomy:: to blow by Feeding per:: G tube Complaints:: none ASSESSMENT & PLAN Assessment: Stable status. No improvement in cognitive function. Diagnosis and treatment reviewed. Prognosis poor. Plan: Current treatment continued as ongoing
[2024-05-26] VITALS (9 sets, daily range): BP systolic 99–113; BP diastolic 67–75; PULSE 56–80; RESP 16–18; TEMP 36.7; O2SAT 95–97
[2024-05-26] MEDS: FLAX GT (09:15)
[2024-05-26] MEDS: BORAGE GT (09:15)
[2024-05-26] MEDS: [UNRECOGNIZED DRUG - OTHER] GT (09:15)
[2024-05-26] MEDS: [UNRECOGNIZED DRUG - OTHER] BOTH EYES ×2 (09:15→21:36)
[2024-05-26] MEDS: DEXLANSOPRAZOLE 30 MG GT (09:15)
[2024-05-26] MEDS: FISH OIL GT (09:15)
[2024-05-26] MEDS: TEARS BOTH EYES ×2 (09:15→21:36)
[2024-05-26] MEDS: MULTIVIT-MIN/IRON FUM/FOLIC AC 1 EACH TABLET GT (09:16)
[2024-05-26] MEDS: SENNOSIDES 8.6 MG TABLET GT ×2 (09:16→21:37)
[2024-05-26] MEDS: LOSARTAN 25 MG TABLET GT (09:16)
[2024-05-26] MEDS: PROPRANOLOL 10 MG TABLET 20 MG GT ×2 (14:51→21:37)
[2024-05-27] VITALS (9 sets, daily range): BP systolic 98–127; BP diastolic 60–74; PULSE 54–83; RESP 17–19; TEMP 36.3–36.7; O2SAT 95–98
[2024-05-27] MEDS: PROPRANOLOL 10 MG TABLET 20 MG GT ×3 (05:37→21:25)
[2024-05-27] MEDS: [UNRECOGNIZED DRUG - OTHER] BOTH EYES ×2 (08:49→21:25)
[2024-05-27] MEDS: TEARS BOTH EYES ×2 (08:49→21:25)
[2024-05-27] MEDS: FLAX GT (08:50)
[2024-05-27] MEDS: SENNOSIDES 8.6 MG TABLET GT ×2 (08:50→21:25)
[2024-05-27] MEDS: [UNRECOGNIZED DRUG - OTHER] GT (08:50)
[2024-05-27] MEDS: BORAGE GT (08:50)
[2024-05-27] MEDS: MULTIVIT-MIN/IRON FUM/FOLIC AC 1 EACH TABLET GT (08:50)
[2024-05-27] MEDS: LOSARTAN 25 MG TABLET GT (08:50)
[2024-05-27] MEDS: FISH OIL GT (08:50)
[2024-05-27] MEDS: DEXLANSOPRAZOLE 30 MG GT (08:50)
[2024-05-27] MEDS: MAGNESIUM HYDROXIDE 30 ML ORAL SUSP ML GT (09:10)
[2024-05-28] VITALS (10 sets, daily range): BP systolic 96–136; BP diastolic 60–84; PULSE 58–93; RESP 18–21; TEMP 36.3–36.8; O2SAT 90–96
[2024-05-28] MEDS: TEARS BOTH EYES ×2 (08:37→21:15)
[2024-05-28] MEDS: FLAX GT (08:37)
[2024-05-28] MEDS: BORAGE GT (08:37)
[2024-05-28] MEDS: DEXLANSOPRAZOLE 30 MG GT (08:37)
[2024-05-28] MEDS: FISH OIL GT (08:37)
[2024-05-28] MEDS: [UNRECOGNIZED DRUG - OTHER] GT (08:37)
[2024-05-28] MEDS: [UNRECOGNIZED DRUG - OTHER] BOTH EYES ×2 (08:37→21:15)
[2024-05-28] MEDS: MULTIVIT-MIN/IRON FUM/FOLIC AC 1 EACH TABLET GT (08:38)
[2024-05-28] MEDS: SENNOSIDES 8.6 MG TABLET GT ×2 (08:39→21:15)
[2024-05-28] MEDS: PROPRANOLOL 10 MG TABLET 20 MG GT ×2 (14:46→21:15)
[2024-05-29] VITALS (8 sets, daily range): BP systolic 97–107; BP diastolic 65–73; PULSE 52–71; RESP 18–19; TEMP 36.3–36.4; O2SAT 95–98
[2024-05-29] MEDS: PROPRANOLOL 10 MG TABLET 20 MG GT (05:36)
[2024-05-29] MEDS: [UNRECOGNIZED DRUG - OTHER] GT (08:51)
[2024-05-29] MEDS: DEXLANSOPRAZOLE 30 MG GT (08:51)
[2024-05-29] MEDS: FISH OIL GT (08:51)
[2024-05-29] MEDS: BORAGE GT (08:51)
[2024-05-29] MEDS: FLAX GT (08:51)
[2024-05-29] MEDS: TEARS BOTH EYES ×2 (08:51→21:01)
[2024-05-29] MEDS: [UNRECOGNIZED DRUG - OTHER] BOTH EYES ×2 (08:51→21:01)
[2024-05-29] MEDS: SENNOSIDES 8.6 MG TABLET GT ×2 (08:52→21:01)
[2024-05-29] MEDS: MULTIVIT-MIN/IRON FUM/FOLIC AC 1 EACH TABLET GT (08:52)
--- NOTE | 2024-05-29 14:00 | PD.SAPROG ---
Progress Note - SubAcute DIAGNOSIS (1) Traumatic brain injury: Status: Chronic (2) Anoxic brain damage, not elsewhere classified: Status: Chronic (3) Tracheostomy status: Status: Chronic (4) Gastrostomy status: Status: Chronic (5) Chronic respiratory failure: Status: Chronic SUBJECTIVE Fever:: none GI:: none Shortness of Breath:: none GI:: no complaints Pain:: none OBJECTIVE Most recent vital signs: Last Vital Signs Temp 97.3 F 05/30/24 18:00 Pulse 60 05/30/24 21:34 Resp 18 05/30/24 18:26 BP 108/64 05/30/24 21:34 Pulse Ox 96 05/30/24 18:26 O2 Del Method Blow-by 05/29/24 17:04 O2 Flow Rate 10 05/30/24 18:26 FiO2 35 05/30/24 18:26 Neurological:: awake Speech:: none Answers questions:: sometimes (Sometimes opens eyes to command.) Respiratory:: lungs clear Cardiovascular: RRR Abdomen: soft and nontender Extremities:: deformities Decubitus:: none Tracheostomy:: to blow by Feeding per:: G tube Complaints:: none ASSESSMENT & PLAN Assessment: Stable status. No improvement in cognitive function. Diagnosis and treatment reviewed. Prognosis poor. Plan: Current treatment continued as ongoing
--- NOTE | 2024-05-29 14:22 | PC.SS ---
Room visit:Resident is laying in bed with head of the bed elevated with call light properly placed with no signs of distress. Resident is well groomed with call light properly placed with no signs of distress. Resident will remain in current care as there are no changes in care or condition, resident remains on blow by with trach in place and GT for medication and nutrition. Resident will continue to have all subacute care needs met by staff.
[2024-05-30] VITALS (11 sets, daily range): BP systolic 96–114; BP diastolic 64–72; PULSE 54–66; RESP 17–71; TEMP 36.1–36.4; O2SAT 96–99
[2024-05-30] MEDS: PROPRANOLOL 10 MG TABLET 20 MG GT ×3 (05:26→21:34)
[2024-05-30] MEDS: [UNRECOGNIZED DRUG - OTHER] BOTH EYES ×2 (09:17→20:18)
[2024-05-30] MEDS: TEARS BOTH EYES ×2 (09:17→20:18)
[2024-05-30] MEDS: DEXLANSOPRAZOLE 30 MG GT (09:17)
[2024-05-30] MEDS: SENNOSIDES 8.6 MG TABLET GT ×2 (09:19→20:18)
[2024-05-30] MEDS: MULTIVIT-MIN/IRON FUM/FOLIC AC 1 EACH TABLET GT (09:19)
[2024-05-30] MEDS: [UNRECOGNIZED DRUG - OTHER] GT (09:58)
[2024-05-30] MEDS: BORAGE GT (09:58)
[2024-05-30] MEDS: FLAX GT (09:58)
[2024-05-30] MEDS: FISH OIL GT (09:58)
[2024-05-31] VITALS (9 sets, daily range): BP systolic 98–119; BP diastolic 61–75; PULSE 56–91; RESP 17–20; TEMP 36.4–36.5; O2SAT 96–99
[2024-05-31] MEDS: FLAX GT (08:25)
[2024-05-31] MEDS: FISH OIL GT (08:25)
[2024-05-31] MEDS: BORAGE GT (08:25)
[2024-05-31] MEDS: TEARS BOTH EYES ×2 (08:25→21:03)
[2024-05-31] MEDS: [UNRECOGNIZED DRUG - OTHER] BOTH EYES ×2 (08:25→21:03)
[2024-05-31] MEDS: [UNRECOGNIZED DRUG - OTHER] GT (08:25)
[2024-05-31] MEDS: DEXLANSOPRAZOLE 30 MG GT (08:25)
[2024-05-31] MEDS: MULTIVIT-MIN/IRON FUM/FOLIC AC 1 EACH TABLET GT (08:27)
[2024-05-31] MEDS: MAGNESIUM HYDROXIDE 30 ML ORAL SUSP ML GT (08:27)
[2024-05-31] MEDS: SENNOSIDES 8.6 MG TABLET GT ×2 (08:27→21:03)
[2024-05-31] MEDS: PROPRANOLOL 10 MG TABLET 20 MG GT (21:03)
[2024-06-01] VITALS (9 sets, daily range): BP systolic 93–124; BP diastolic 59–82; PULSE 55–79; RESP 17–24; TEMP 36.4–36.6; O2SAT 91–99
[2024-06-01] MEDS: PROPRANOLOL 10 MG TABLET 20 MG GT ×3 (05:35→21:02)
[2024-06-01] MEDS: [UNRECOGNIZED DRUG - OTHER] BOTH EYES ×2 (08:51→21:01)
[2024-06-01] MEDS: TEARS BOTH EYES ×2 (08:51→21:01)
[2024-06-01] MEDS: FISH OIL GT (08:52)
[2024-06-01] MEDS: BORAGE GT (08:52)
[2024-06-01] MEDS: [UNRECOGNIZED DRUG - OTHER] GT (08:52)
[2024-06-01] MEDS: FLAX GT (08:52)
[2024-06-01] MEDS: DEXLANSOPRAZOLE 30 MG GT (08:52)
[2024-06-01] MEDS: MULTIVIT-MIN/IRON FUM/FOLIC AC 1 EACH TABLET GT (08:53)
[2024-06-01] MEDS: MAGNESIUM HYDROXIDE 30 ML ORAL SUSP ML GT (08:53)
[2024-06-01] MEDS: SENNOSIDES 8.6 MG TABLET GT ×2 (08:53→21:02)
[2024-06-01] MEDS: LOSARTAN 25 MG TABLET GT (08:53)
[2024-06-02] VITALS (10 sets, daily range): BP systolic 100–112; BP diastolic 59–76; PULSE 54–71; RESP 18–19; TEMP 36.4–36.6; O2SAT 92–94
[2024-06-02] MEDS: [UNRECOGNIZED DRUG - OTHER] BOTH EYES ×2 (08:56→20:36)
[2024-06-02] MEDS: TEARS BOTH EYES ×2 (08:56→20:36)
[2024-06-02] MEDS: [UNRECOGNIZED DRUG - OTHER] GT (08:57)
[2024-06-02] MEDS: FISH OIL GT (08:57)
[2024-06-02] MEDS: BORAGE GT (08:57)
[2024-06-02] MEDS: LOSARTAN 25 MG TABLET GT (08:57)
[2024-06-02] MEDS: DEXLANSOPRAZOLE 30 MG GT (08:57)
[2024-06-02] MEDS: FLAX GT (08:57)
[2024-06-02] MEDS: MULTIVIT-MIN/IRON FUM/FOLIC AC 1 EACH TABLET GT (09:00)
[2024-06-02] MEDS: SENNOSIDES 8.6 MG TABLET GT ×2 (09:00→20:36)
[2024-06-02] MEDS: PROPRANOLOL 10 MG TABLET 20 MG GT ×2 (14:17→21:50)
--- NOTE | 2024-06-02 21:53 | PD.SAPROG ---
Progress Note - SubAcute DIAGNOSIS (1) Traumatic brain injury: Status: Chronic (2) Anoxic brain damage, not elsewhere classified: Status: Chronic (3) Tracheostomy status: Status: Chronic (4) Gastrostomy status: Status: Chronic (5) Chronic respiratory failure: Status: Chronic SUBJECTIVE Fever:: none GI:: none Shortness of Breath:: none GI:: no complaints Pain:: none OBJECTIVE Most recent vital signs: Last Vital Signs Temp 97.5 F 06/02/24 17:17 Pulse 61 06/02/24 19:05 Resp 18 06/02/24 19:05 BP 100/60 06/02/24 17:17 Pulse Ox 92 L 06/02/24 19:05 O2 Del Method Blow-by 06/02/24 17:17 O2 Flow Rate 10 06/02/24 19:05 FiO2 35 06/02/24 19:05 Neurological:: awake Speech:: none Answers questions:: sometimes (Sometimes opens eyes to command.) Respiratory:: lungs clear Cardiovascular: RRR Abdomen: soft and nontender Extremities:: deformities Decubitus:: none Tracheostomy:: to blow by Feeding per:: G tube Complaints:: none ASSESSMENT & PLAN Assessment: Stable status. No improvement in cognitive function. Diagnosis and treatment reviewed. Prognosis poor. Plan: Current treatment continued as ongoing
[2024-06-03] VITALS (9 sets, daily range): BP systolic 97–125; BP diastolic 60–81; PULSE 59–77; RESP 17–21; TEMP 36.2–37.1; O2SAT 93–99
[2024-06-03] MEDS: PROPRANOLOL 10 MG TABLET 20 MG GT ×2 (05:45→21:07)
[2024-06-03] MEDS: TEARS BOTH EYES ×2 (08:56→21:07)
[2024-06-03] MEDS: [UNRECOGNIZED DRUG - OTHER] BOTH EYES ×2 (08:56→21:07)
[2024-06-03] MEDS: DEXLANSOPRAZOLE 30 MG GT (08:57)
[2024-06-03] MEDS: [UNRECOGNIZED DRUG - OTHER] GT (08:57)
[2024-06-03] MEDS: FLAX GT (08:57)
[2024-06-03] MEDS: BORAGE GT (08:57)
[2024-06-03] MEDS: FISH OIL GT (08:57)
[2024-06-03] MEDS: MULTIVIT-MIN/IRON FUM/FOLIC AC 1 EACH TABLET GT (08:58)
[2024-06-03] MEDS: SENNOSIDES 8.6 MG TABLET GT ×2 (08:59→21:07)
[2024-06-04] VITALS (10 sets, daily range): BP systolic 94–125; BP diastolic 62–80; PULSE 48–86; RESP 17–21; TEMP 36.2–37.1; O2SAT 92–97
[2024-06-04] MEDS: PROPRANOLOL 10 MG TABLET 20 MG GT ×2 (05:22→21:09)
[2024-06-04] MEDS: DEXLANSOPRAZOLE 30 MG GT (08:55)
[2024-06-04] MEDS: [UNRECOGNIZED DRUG - OTHER] BOTH EYES ×2 (08:55→21:07)
[2024-06-04] MEDS: TEARS BOTH EYES ×2 (08:55→21:07)
[2024-06-04] MEDS: FISH OIL GT (08:55)
[2024-06-04] MEDS: FLAX GT (08:55)
[2024-06-04] MEDS: BORAGE GT (08:55)
[2024-06-04] MEDS: [UNRECOGNIZED DRUG - OTHER] GT (08:55)
[2024-06-04] MEDS: MULTIVIT-MIN/IRON FUM/FOLIC AC 1 EACH TABLET GT (08:57)
[2024-06-04] MEDS: SENNOSIDES 8.6 MG TABLET GT ×2 (08:58→21:08)
--- NOTE | 2024-06-04 11:46 | PC.SS ---
Room visit: Resident is laying in bed with head of the bed elevated with call light properly placed with no signs of distress. Resident has no changes in care or condition. Resident remains on blow by with trach in place and GT for medication and nutrition. Resident will continue to have all subacute care needs met by staff. SSD will continue to make daily room visits and monitor for changes in mood and behavior.
[2024-06-04] MEDS: MAGNESIUM HYDROXIDE 30 ML ORAL SUSP ML GT (21:09)
[2024-06-05] VITALS (9 sets, daily range): BP systolic 98–138; BP diastolic 60–80; PULSE 58–79; RESP 17–20; TEMP 36.1–36.5; O2SAT 95–100
[2024-06-05] MEDS: TEARS BOTH EYES ×2 (08:40→20:51)
[2024-06-05] MEDS: DEXLANSOPRAZOLE 30 MG GT (08:40)
[2024-06-05] MEDS: [UNRECOGNIZED DRUG - OTHER] BOTH EYES ×2 (08:40→20:51)
[2024-06-05] MEDS: MULTIVIT-MIN/IRON FUM/FOLIC AC 1 EACH TABLET GT (08:41)
[2024-06-05] MEDS: FISH OIL GT (08:41)
[2024-06-05] MEDS: [UNRECOGNIZED DRUG - OTHER] GT (08:41)
[2024-06-05] MEDS: BORAGE GT (08:41)
[2024-06-05] MEDS: FLAX GT (08:41)
[2024-06-05] MEDS: LOSARTAN 25 MG TABLET GT (08:41)
[2024-06-05] MEDS: SENNOSIDES 8.6 MG TABLET GT ×2 (08:41→20:51)
[2024-06-05] MEDS: PROPRANOLOL 10 MG TABLET 20 MG GT ×2 (14:13→22:00)
[2024-06-06] VITALS (11 sets, daily range): BP systolic 95–120; BP diastolic 59–83; PULSE 60–85; RESP 18–20; TEMP 36.3–36.6; O2SAT 95–98
[2024-06-06] MEDS: PROPRANOLOL 10 MG TABLET 20 MG GT ×3 (05:19→21:55)
[2024-06-06] MEDS: FLAX GT (08:20)
[2024-06-06] MEDS: BORAGE GT (08:20)
[2024-06-06] MEDS: FISH OIL GT (08:20)
[2024-06-06] MEDS: TEARS BOTH EYES ×2 (08:20→20:40)
[2024-06-06] MEDS: DEXLANSOPRAZOLE 30 MG GT (08:20)
[2024-06-06] MEDS: LOSARTAN 25 MG TABLET GT (08:20)
[2024-06-06] MEDS: [UNRECOGNIZED DRUG - OTHER] BOTH EYES ×2 (08:20→20:40)
[2024-06-06] MEDS: [UNRECOGNIZED DRUG - OTHER] GT (08:20)
[2024-06-06] MEDS: SENNOSIDES 8.6 MG TABLET GT ×2 (08:21→20:40)
[2024-06-06] MEDS: MULTIVIT-MIN/IRON FUM/FOLIC AC 1 EACH TABLET GT (08:21)
--- NOTE | 2024-06-06 19:46 | PD.SAPROG ---
Progress Note - SubAcute DIAGNOSIS (1) Traumatic brain injury: Status: Chronic (2) Anoxic brain damage, not elsewhere classified: Status: Chronic (3) Tracheostomy status: Status: Chronic (4) Gastrostomy status: Status: Chronic (5) Chronic respiratory failure: Status: Chronic SUBJECTIVE Fever:: none GI:: none Shortness of Breath:: none GI:: no complaints Pain:: none OBJECTIVE Most recent vital signs: Last Vital Signs Temp 97.7 F 06/06/24 18:00 Pulse 78 06/06/24 18:00 Resp 20 06/06/24 18:00 BP 95/67 06/06/24 18:00 Pulse Ox 97 06/06/24 12:00 O2 Del Method Blow-by 06/06/24 06:00 O2 Flow Rate 10 06/06/24 07:51 FiO2 35 06/06/24 07:51 Neurological:: awake Speech:: none Answers questions:: sometimes (Sometimes opens eyes to command.) Respiratory:: lungs clear Cardiovascular: RRR Abdomen: soft and nontender Extremities:: deformities Decubitus:: none Tracheostomy:: to blow by Feeding per:: G tube Complaints:: none ASSESSMENT & PLAN Assessment: Stable status. No improvement in cognitive function. Diagnosis and treatment reviewed. Prognosis poor. Plan: Current treatment continued as ongoing
[2024-06-07] VITALS (9 sets, daily range): BP systolic 93–117; BP diastolic 50–74; PULSE 51–77; RESP 17–20; TEMP 36.2; O2SAT 95–99
[2024-06-07] MEDS: [UNRECOGNIZED DRUG - OTHER] GT (08:32)
[2024-06-07] MEDS: FLAX GT (08:32)
[2024-06-07] MEDS: BORAGE GT (08:32)
[2024-06-07] MEDS: TEARS BOTH EYES ×2 (08:32→20:50)
[2024-06-07] MEDS: FISH OIL GT (08:32)
[2024-06-07] MEDS: DEXLANSOPRAZOLE 30 MG GT (08:32)
[2024-06-07] MEDS: [UNRECOGNIZED DRUG - OTHER] BOTH EYES ×2 (08:32→20:50)
[2024-06-07] MEDS: MULTIVIT-MIN/IRON FUM/FOLIC AC 1 EACH TABLET GT (08:33)
[2024-06-07] MEDS: SENNOSIDES 8.6 MG TABLET GT ×2 (08:33→20:50)
[2024-06-08] VITALS (9 sets, daily range): BP systolic 96–122; BP diastolic 61–78; PULSE 59–79; RESP 15–20; TEMP 35.9–36.6; O2SAT 97–98
[2024-06-08] MEDS: PROPRANOLOL 10 MG TABLET 20 MG GT ×2 (05:25→14:28)
[2024-06-08] MEDS: [UNRECOGNIZED DRUG - OTHER] BOTH EYES ×2 (08:37→20:40)
[2024-06-08] MEDS: TEARS BOTH EYES ×2 (08:37→20:40)
[2024-06-08] MEDS: DEXLANSOPRAZOLE 30 MG GT (08:37)
[2024-06-08] MEDS: FISH OIL GT (08:38)
[2024-06-08] MEDS: BORAGE GT (08:38)
[2024-06-08] MEDS: FLAX GT (08:38)
[2024-06-08] MEDS: [UNRECOGNIZED DRUG - OTHER] GT (08:38)
[2024-06-08] MEDS: LOSARTAN 25 MG TABLET GT (08:39)
[2024-06-08] MEDS: MULTIVIT-MIN/IRON FUM/FOLIC AC 1 EACH TABLET GT (08:40)
[2024-06-08] MEDS: SENNOSIDES 8.6 MG TABLET GT ×2 (08:40→20:40)
[2024-06-08] MEDS: MAGNESIUM HYDROXIDE 30 ML ORAL SUSP ML GT (08:46)
[2024-06-09] VITALS (9 sets, daily range): BP systolic 101–135; BP diastolic 70–76; PULSE 67–83; RESP 15–20; TEMP 36.4–36.6; O2SAT 97
[2024-06-09] MEDS: PROPRANOLOL 10 MG TABLET 20 MG GT ×3 (05:23→21:39)
[2024-06-09] MEDS: FISH OIL GT (09:00)
[2024-06-09] MEDS: BORAGE GT (09:00)
[2024-06-09] MEDS: DEXLANSOPRAZOLE 30 MG GT (09:00)
[2024-06-09] MEDS: TEARS BOTH EYES ×2 (09:00→21:39)
[2024-06-09] MEDS: FLAX GT (09:00)
[2024-06-09] MEDS: [UNRECOGNIZED DRUG - OTHER] BOTH EYES ×2 (09:00→21:39)
[2024-06-09] MEDS: [UNRECOGNIZED DRUG - OTHER] GT (09:00)
[2024-06-09] MEDS: LOSARTAN 25 MG TABLET GT (09:01)
[2024-06-09] MEDS: MULTIVIT-MIN/IRON FUM/FOLIC AC 1 EACH TABLET GT (09:01)
[2024-06-09] MEDS: SENNOSIDES 8.6 MG TABLET GT ×2 (09:02→21:39)
[2024-06-10] VITALS (11 sets, daily range): BP systolic 90–117; BP diastolic 57–79; PULSE 57–80; RESP 18–20; TEMP 36.6–36.7; O2SAT 95–98
[2024-06-10] MEDS: PROPRANOLOL 10 MG TABLET 20 MG GT (05:39)
[2024-06-10] MEDS: SENNOSIDES 8.6 MG TABLET GT ×2 (09:25→20:46)
[2024-06-10] MEDS: FLAX GT (09:31)
[2024-06-10] MEDS: DEXLANSOPRAZOLE 30 MG GT (09:31)
[2024-06-10] MEDS: TEARS BOTH EYES ×2 (09:31→20:46)
[2024-06-10] MEDS: MULTIVIT-MIN/IRON FUM/FOLIC AC 1 EACH TABLET GT (09:31)
[2024-06-10] MEDS: [UNRECOGNIZED DRUG - OTHER] BOTH EYES ×2 (09:31→20:46)
[2024-06-10] MEDS: BORAGE GT (09:31)
[2024-06-10] MEDS: [UNRECOGNIZED DRUG - OTHER] GT (09:31)
[2024-06-10] MEDS: FISH OIL GT (09:31)
--- NOTE | 2024-06-10 13:55 | PD.SAPROG ---
Progress Note - SubAcute DIAGNOSIS (1) Traumatic brain injury: Status: Chronic (2) Anoxic brain damage, not elsewhere classified: Status: Chronic (3) Tracheostomy status: Status: Chronic (4) Gastrostomy status: Status: Chronic (5) Chronic respiratory failure: Status: Chronic SUBJECTIVE Fever:: none GI:: none Shortness of Breath:: none GI:: no complaints Pain:: none OBJECTIVE Most recent vital signs: Last Vital Signs Temp 97.1 F 06/11/24 17:49 Pulse 78 06/11/24 17:49 Resp 17 06/11/24 17:49 BP 105/63 06/11/24 17:49 Pulse Ox 98 06/11/24 17:49 O2 Del Method Blow-by 06/11/24 17:49 O2 Flow Rate 10 06/11/24 06:00 FiO2 35 06/11/24 06:00 Neurological:: awake Speech:: none Answers questions:: sometimes (Sometimes opens eyes to command.) Respiratory:: lungs clear Cardiovascular: RRR Abdomen: soft and nontender Extremities:: deformities Decubitus:: none Tracheostomy:: to blow by Feeding per:: G tube Complaints:: none ASSESSMENT & PLAN Assessment: Stable status. No improvement in cognitive function. Diagnosis and treatment reviewed. Prognosis poor. Plan: Current treatment continued as ongoing
[2024-06-11] VITALS (11 sets, daily range): BP systolic 97–116; BP diastolic 59–76; PULSE 56–79; RESP 17–20; TEMP 36.1–36.5; O2SAT 96–98
[2024-06-11] MEDS: PROPRANOLOL 10 MG TABLET 20 MG GT ×2 (05:20→14:18)
[2024-06-11] MEDS: MULTIVIT-MIN/IRON FUM/FOLIC AC 1 EACH TABLET GT (08:49)
[2024-06-11] MEDS: [UNRECOGNIZED DRUG - OTHER] GT (08:49)
[2024-06-11] MEDS: BORAGE GT (08:49)
[2024-06-11] MEDS: TEARS BOTH EYES ×2 (08:49→21:07)
[2024-06-11] MEDS: FISH OIL GT (08:49)
[2024-06-11] MEDS: SENNOSIDES 8.6 MG TABLET GT ×2 (08:49→21:08)
[2024-06-11] MEDS: LOSARTAN 25 MG TABLET GT (08:49)
[2024-06-11] MEDS: DEXLANSOPRAZOLE 30 MG GT (08:49)
[2024-06-11] MEDS: FLAX GT (08:49)
[2024-06-11] MEDS: [UNRECOGNIZED DRUG - OTHER] BOTH EYES ×2 (08:49→21:07)
[2024-06-11] MEDS: MAGNESIUM HYDROXIDE 30 ML ORAL SUSP ML GT (08:50)
[2024-06-12] VITALS (10 sets, daily range): BP systolic 101–118; BP diastolic 64–74; PULSE 52–72; RESP 18–20; TEMP 36.2–36.4; O2SAT 95–99
[2024-06-12] MEDS: PROPRANOLOL 10 MG TABLET 20 MG GT ×3 (05:19→21:22)
[2024-06-12] MEDS: FLAX GT (08:29)
[2024-06-12] MEDS: DEXLANSOPRAZOLE 30 MG GT (08:29)
[2024-06-12] MEDS: [UNRECOGNIZED DRUG - OTHER] GT (08:29)
[2024-06-12] MEDS: [UNRECOGNIZED DRUG - OTHER] BOTH EYES ×2 (08:29→20:57)
[2024-06-12] MEDS: FISH OIL GT (08:29)
[2024-06-12] MEDS: LOSARTAN 25 MG TABLET GT (08:29)
[2024-06-12] MEDS: BORAGE GT (08:29)
[2024-06-12] MEDS: TEARS BOTH EYES ×2 (08:29→20:57)
[2024-06-12] MEDS: MULTIVIT-MIN/IRON FUM/FOLIC AC 1 EACH TABLET GT (08:30)
[2024-06-12] MEDS: SENNOSIDES 8.6 MG TABLET GT ×2 (08:30→21:22)
[2024-06-12] MEDS: ACETAMINOPHEN 325 MG TABLET 650 MG GT (20:30)
--- NOTE | 2024-06-12 21:11 | PD.SAPROG ---
Progress Note - SubAcute DIAGNOSIS (1) Traumatic brain injury: Status: Chronic (2) Anoxic brain damage, not elsewhere classified: Status: Chronic (3) Tracheostomy status: Status: Chronic (4) Gastrostomy status: Status: Chronic (5) Chronic respiratory failure: Status: Chronic SUBJECTIVE Fever:: none GI:: none Shortness of Breath:: none GI:: no complaints Pain:: none OBJECTIVE Most recent vital signs: Last Vital Signs Temp 97.2 F 06/12/24 17:13 Pulse 72 06/12/24 17:13 Resp 18 06/12/24 17:13 BP 107/65 06/12/24 17:13 Pulse Ox 97 06/12/24 17:13 O2 Del Method Blow-by 06/12/24 17:13 O2 Flow Rate 10 06/12/24 17:13 FiO2 35 06/12/24 17:13 Neurological:: awake Speech:: none Answers questions:: sometimes (Sometimes opens eyes to command.) Respiratory:: lungs clear Cardiovascular: RRR Abdomen: soft and nontender Extremities:: deformities Decubitus:: none Tracheostomy:: to blow by Feeding per:: G tube Complaints:: none ASSESSMENT & PLAN Assessment: Stable status. No improvement in cognitive function. Diagnosis and treatment reviewed. Prognosis poor. Plan: Current treatment continued as ongoing
[2024-06-13] VITALS (10 sets, daily range): BP systolic 96–124; BP diastolic 62–84; PULSE 60–90; RESP 17–20; TEMP 36.1–36.4; O2SAT 95–99
[2024-06-13] MEDS: PROPRANOLOL 10 MG TABLET 20 MG GT ×2 (05:18→15:12)
[2024-06-13] MEDS: BORAGE GT (09:13)
[2024-06-13] MEDS: FLAX GT (09:13)
[2024-06-13] MEDS: DEXLANSOPRAZOLE 30 MG GT (09:13)
[2024-06-13] MEDS: [UNRECOGNIZED DRUG - OTHER] GT (09:13)
[2024-06-13] MEDS: TEARS BOTH EYES ×2 (09:13→21:18)
[2024-06-13] MEDS: [UNRECOGNIZED DRUG - OTHER] BOTH EYES ×2 (09:13→21:18)
[2024-06-13] MEDS: FISH OIL GT (09:13)
[2024-06-13] MEDS: LOSARTAN 25 MG TABLET GT (09:14)
[2024-06-13] MEDS: MULTIVIT-MIN/IRON FUM/FOLIC AC 1 EACH TABLET GT (09:14)
[2024-06-13] MEDS: SENNOSIDES 8.6 MG TABLET GT ×2 (09:14→21:18)
[2024-06-14] VITALS (10 sets, daily range): BP systolic 96–113; BP diastolic 62–78; PULSE 58–89; RESP 17–19; TEMP 36.1–36.6; O2SAT 95–99
[2024-06-14] MEDS: PROPRANOLOL 10 MG TABLET 20 MG GT ×2 (05:37→13:48)
[2024-06-14] MEDS: TEARS BOTH EYES ×2 (08:30→21:17)
[2024-06-14] MEDS: BORAGE GT (08:30)
[2024-06-14] MEDS: [UNRECOGNIZED DRUG - OTHER] BOTH EYES ×2 (08:30→21:17)
[2024-06-14] MEDS: DEXLANSOPRAZOLE 30 MG GT (08:30)
[2024-06-14] MEDS: FISH OIL GT (08:30)
[2024-06-14] MEDS: [UNRECOGNIZED DRUG - OTHER] GT (08:30)
[2024-06-14] MEDS: FLAX GT (08:30)
[2024-06-14] MEDS: SENNOSIDES 8.6 MG TABLET GT ×2 (08:31→21:17)
[2024-06-14] MEDS: MULTIVIT-MIN/IRON FUM/FOLIC AC 1 EACH TABLET GT (08:31)
[2024-06-15] VITALS (9 sets, daily range): BP systolic 95–114; BP diastolic 61–74; PULSE 61–74; RESP 18–21; TEMP 36.1–36.6; O2SAT 96–98
[2024-06-15] MEDS: TEARS BOTH EYES ×2 (09:00→21:33)
[2024-06-15] MEDS: BORAGE GT (09:00)
[2024-06-15] MEDS: DEXLANSOPRAZOLE 30 MG GT (09:00)
[2024-06-15] MEDS: FISH OIL GT (09:00)
[2024-06-15] MEDS: LOSARTAN 25 MG TABLET GT (09:00)
[2024-06-15] MEDS: FLAX GT (09:00)
[2024-06-15] MEDS: [UNRECOGNIZED DRUG - OTHER] BOTH EYES ×2 (09:00→21:33)
[2024-06-15] MEDS: [UNRECOGNIZED DRUG - OTHER] GT (09:00)
[2024-06-15] MEDS: SENNOSIDES 8.6 MG TABLET GT ×2 (09:01→21:34)
[2024-06-15] MEDS: MULTIVIT-MIN/IRON FUM/FOLIC AC 1 EACH TABLET GT (09:01)
[2024-06-15] MEDS: PROPRANOLOL 10 MG TABLET 20 MG GT (21:34)
[2024-06-16] VITALS (9 sets, daily range): BP systolic 97–117; BP diastolic 53–79; PULSE 57–82; RESP 16–20; TEMP 36.3–36.7; O2SAT 94–97
[2024-06-16] MEDS: PROPRANOLOL 10 MG TABLET 20 MG GT ×2 (05:14→14:25)
[2024-06-16] MEDS: LOSARTAN 25 MG TABLET GT (08:43)
[2024-06-16] MEDS: FLAX GT (08:43)
[2024-06-16] MEDS: [UNRECOGNIZED DRUG - OTHER] GT (08:43)
[2024-06-16] MEDS: DEXLANSOPRAZOLE 30 MG GT (08:43)
[2024-06-16] MEDS: BORAGE GT (08:43)
[2024-06-16] MEDS: TEARS BOTH EYES ×2 (08:43→20:50)
[2024-06-16] MEDS: FISH OIL GT (08:43)
[2024-06-16] MEDS: [UNRECOGNIZED DRUG - OTHER] BOTH EYES ×2 (08:43→20:50)
[2024-06-16] MEDS: MAGNESIUM HYDROXIDE 30 ML ORAL SUSP ML GT (08:44)
[2024-06-16] MEDS: SENNOSIDES 8.6 MG TABLET GT ×2 (08:44→20:50)
[2024-06-16] MEDS: MULTIVIT-MIN/IRON FUM/FOLIC AC 1 EACH TABLET GT (08:44)
[2024-06-17] VITALS (10 sets, daily range): BP systolic 95–106; BP diastolic 58–74; PULSE 60–74; RESP 17–18; TEMP 36.4–36.8; O2SAT 95–99
[2024-06-17] MEDS: PROPRANOLOL 10 MG TABLET 20 MG GT ×2 (05:18→14:12)
[2024-06-17] MEDS: [UNRECOGNIZED DRUG - OTHER] BOTH EYES ×2 (09:03→20:12)
[2024-06-17] MEDS: FISH OIL GT (09:03)
[2024-06-17] MEDS: [UNRECOGNIZED DRUG - OTHER] GT (09:03)
[2024-06-17] MEDS: DEXLANSOPRAZOLE 30 MG GT (09:03)
[2024-06-17] MEDS: TEARS BOTH EYES ×2 (09:03→20:12)
[2024-06-17] MEDS: BORAGE GT (09:03)
[2024-06-17] MEDS: FLAX GT (09:03)
[2024-06-17] MEDS: MULTIVIT-MIN/IRON FUM/FOLIC AC 1 EACH TABLET GT (09:04)
[2024-06-17] MEDS: SENNOSIDES 8.6 MG TABLET GT ×2 (09:04→20:12)
--- NOTE | 2024-06-17 18:08 | PD.SAPROG ---
Progress Note - SubAcute DIAGNOSIS (1) Traumatic brain injury: Status: Chronic (2) Anoxic brain damage, not elsewhere classified: Status: Chronic (3) Tracheostomy status: Status: Chronic (4) Gastrostomy status: Status: Chronic (5) Chronic respiratory failure: Status: Chronic SUBJECTIVE Fever:: none GI:: none Shortness of Breath:: none GI:: no complaints Pain:: none OBJECTIVE Most recent vital signs: Last Vital Signs Temp 97.8 F 06/17/24 17:43 Pulse 60 06/17/24 17:43 Resp 17 06/17/24 17:43 BP 98/61 06/17/24 17:43 Pulse Ox 99 06/17/24 17:43 O2 Del Method Blow-by 06/17/24 17:43 O2 Flow Rate 10 06/17/24 07:00 FiO2 35 06/17/24 07:00 Neurological:: awake Speech:: none Answers questions:: sometimes (Sometimes opens eyes to command.) Respiratory:: lungs clear Cardiovascular: RRR Abdomen: soft and nontender Extremities:: deformities Decubitus:: none Tracheostomy:: to blow by Feeding per:: G tube Complaints:: none ASSESSMENT & PLAN Assessment: Stable status. No improvement in cognitive function. Diagnosis and treatment reviewed. Prognosis poor. Plan: Current treatment continued as ongoing
[2024-06-18] VITALS (10 sets, daily range): BP systolic 98–124; BP diastolic 59–73; PULSE 54–78; RESP 17–20; TEMP 36.4–36.7; O2SAT 96–99
[2024-06-18] MEDS: PROPRANOLOL 10 MG TABLET 20 MG GT ×2 (05:20→21:21)
[2024-06-18] MEDS: DEXLANSOPRAZOLE 30 MG GT (08:43)
[2024-06-18] MEDS: TEARS BOTH EYES ×2 (08:43→21:01)
[2024-06-18] MEDS: FISH OIL GT (08:43)
[2024-06-18] MEDS: [UNRECOGNIZED DRUG - OTHER] GT (08:43)
[2024-06-18] MEDS: FLAX GT (08:43)
[2024-06-18] MEDS: [UNRECOGNIZED DRUG - OTHER] BOTH EYES ×2 (08:43→21:01)
[2024-06-18] MEDS: BORAGE GT (08:43)
[2024-06-18] MEDS: MULTIVIT-MIN/IRON FUM/FOLIC AC 1 EACH TABLET GT (08:45)
[2024-06-18] MEDS: SENNOSIDES 8.6 MG TABLET GT ×2 (08:45→21:01)
[2024-06-19] VITALS (12 sets, daily range): BP systolic 101–116; BP diastolic 62–74; PULSE 57–84; RESP 18–21; TEMP 36.2–36.8; O2SAT 95–98
[2024-06-19] MEDS: PROPRANOLOL 10 MG TABLET 20 MG GT ×2 (05:22→21:17)
[2024-06-19] MEDS: [UNRECOGNIZED DRUG - OTHER] GT (08:52)
[2024-06-19] MEDS: BORAGE GT (08:52)
[2024-06-19] MEDS: FISH OIL GT (08:52)
[2024-06-19] MEDS: FLAX GT (08:52)
[2024-06-19] MEDS: DEXLANSOPRAZOLE 30 MG GT (08:52)
[2024-06-19] MEDS: MULTIVIT-MIN/IRON FUM/FOLIC AC 1 EACH TABLET GT (08:53)
[2024-06-19] MEDS: [UNRECOGNIZED DRUG - OTHER] BOTH EYES ×2 (08:53→21:18)
[2024-06-19] MEDS: SENNOSIDES 8.6 MG TABLET GT ×2 (08:53→21:18)
[2024-06-19] MEDS: TEARS BOTH EYES ×2 (08:53→21:18)
[2024-06-19] MEDS: MAGNESIUM HYDROXIDE 30 ML ORAL SUSP ML GT (09:15)
--- NOTE | 2024-06-19 14:49 | PC.SS ---
Room visit: Resident is laying in bed with no change in care or condition. Resident remains on blow by with trach in place. Resident has GT in place for medication and nutrition. Resident is unable to make needs known, total care. Resident will remain in current care and will have all subacute care needs met by staff.
[2024-06-20] VITALS (9 sets, daily range): BP systolic 93–120; BP diastolic 53–70; PULSE 53–70; RESP 17–20; TEMP 36.4–36.6; O2SAT 98
[2024-06-20] MEDS: FLAX GT (09:10)
[2024-06-20] MEDS: [UNRECOGNIZED DRUG - OTHER] GT (09:10)
[2024-06-20] MEDS: BORAGE GT (09:10)
[2024-06-20] MEDS: FISH OIL GT (09:10)
[2024-06-20] MEDS: DEXLANSOPRAZOLE 30 MG GT (09:10)
[2024-06-20] MEDS: MULTIVIT-MIN/IRON FUM/FOLIC AC 1 EACH TABLET GT (09:10)
[2024-06-20] MEDS: SENNOSIDES 8.6 MG TABLET GT ×2 (09:10→20:57)
[2024-06-20] MEDS: TEARS BOTH EYES ×2 (09:10→20:56)
[2024-06-20] MEDS: LOSARTAN 25 MG TABLET GT (09:10)
[2024-06-20] MEDS: [UNRECOGNIZED DRUG - OTHER] BOTH EYES ×2 (09:10→20:56)
[2024-06-21] VITALS (11 sets, daily range): BP systolic 96–136; BP diastolic 59–80; PULSE 47–93; RESP 16–20; TEMP 36.1–37.1; O2SAT 95–97
[2024-06-21] MEDS: PROPRANOLOL 10 MG TABLET 20 MG GT ×2 (05:26→21:04)
[2024-06-21] MEDS: DEXLANSOPRAZOLE 30 MG GT (08:43)
[2024-06-21] MEDS: LOSARTAN 25 MG TABLET GT (08:43)
[2024-06-21] MEDS: FLAX GT (08:43)
[2024-06-21] MEDS: BORAGE GT (08:43)
[2024-06-21] MEDS: TEARS BOTH EYES ×2 (08:43→20:46)
[2024-06-21] MEDS: [UNRECOGNIZED DRUG - OTHER] BOTH EYES ×2 (08:43→20:46)
[2024-06-21] MEDS: [UNRECOGNIZED DRUG - OTHER] GT (08:43)
[2024-06-21] MEDS: FISH OIL GT (08:43)
[2024-06-21] MEDS: SENNOSIDES 8.6 MG TABLET GT ×2 (08:44→20:46)
[2024-06-21] MEDS: MULTIVIT-MIN/IRON FUM/FOLIC AC 1 EACH TABLET GT (08:44)
--- NOTE | 2024-06-21 18:20 | PD.SAPROG ---
Progress Note - SubAcute DIAGNOSIS (1) Traumatic brain injury: Status: Chronic (2) Anoxic brain damage, not elsewhere classified: Status: Chronic (3) Tracheostomy status: Status: Chronic (4) Gastrostomy status: Status: Chronic (5) Chronic respiratory failure: Status: Chronic SUBJECTIVE Fever:: none GI:: none Shortness of Breath:: none GI:: no complaints Pain:: none OBJECTIVE Most recent vital signs: Last Vital Signs Temp 97.6 F 06/21/24 17:52 Pulse 66 06/21/24 17:52 Resp 18 06/21/24 17:52 BP 96/64 06/21/24 17:52 Pulse Ox 96 06/21/24 17:52 O2 Del Method Blow-by 06/21/24 17:52 O2 Flow Rate 10 06/21/24 06:30 FiO2 35 06/21/24 06:30 Neurological:: awake Speech:: none Answers questions:: sometimes (Sometimes opens eyes to command.) Respiratory:: lungs clear Cardiovascular: RRR Abdomen: soft and nontender Extremities:: deformities Decubitus:: none Tracheostomy:: to blow by Feeding per:: G tube Complaints:: none ASSESSMENT & PLAN Assessment: Stable status. No improvement in cognitive function. Diagnosis and treatment reviewed. Prognosis poor. Plan: Current treatment continued as ongoing
[2024-06-22] VITALS (11 sets, daily range): BP systolic 96–111; BP diastolic 56–68; PULSE 57–82; RESP 18; TEMP 36.4–36.6; O2SAT 95–98
[2024-06-22] MEDS: BORAGE GT (09:06)
[2024-06-22] MEDS: [UNRECOGNIZED DRUG - OTHER] BOTH EYES ×2 (09:06→20:48)
[2024-06-22] MEDS: TEARS BOTH EYES ×2 (09:06→20:48)
[2024-06-22] MEDS: FLAX GT (09:06)
[2024-06-22] MEDS: FISH OIL GT (09:06)
[2024-06-22] MEDS: DEXLANSOPRAZOLE 30 MG GT (09:06)
[2024-06-22] MEDS: [UNRECOGNIZED DRUG - OTHER] GT (09:06)
[2024-06-22] MEDS: MULTIVIT-MIN/IRON FUM/FOLIC AC 1 EACH TABLET GT (09:07)
[2024-06-22] MEDS: SENNOSIDES 8.6 MG TABLET GT ×2 (09:07→20:48)
[2024-06-22] MEDS: PROPRANOLOL 10 MG TABLET 20 MG GT ×2 (14:35→21:55)
[2024-06-23] VITALS (11 sets, daily range): BP systolic 99–108; BP diastolic 63–70; PULSE 56–78; RESP 18–20; TEMP 36.5–36.7; O2SAT 95–98
[2024-06-23] MEDS: MAGNESIUM HYDROXIDE 30 ML ORAL SUSP ML GT (02:00)
[2024-06-23] MEDS: PROPRANOLOL 10 MG TABLET 20 MG GT (05:12)
[2024-06-23] MEDS: [UNRECOGNIZED DRUG - OTHER] BOTH EYES ×2 (09:20→20:45)
[2024-06-23] MEDS: TEARS BOTH EYES ×2 (09:20→20:45)
[2024-06-23] MEDS: DEXLANSOPRAZOLE 30 MG GT (09:20)
[2024-06-23] MEDS: FISH OIL GT (09:21)
[2024-06-23] MEDS: [UNRECOGNIZED DRUG - OTHER] GT (09:21)
[2024-06-23] MEDS: BORAGE GT (09:21)
[2024-06-23] MEDS: FLAX GT (09:21)
[2024-06-23] MEDS: MULTIVIT-MIN/IRON FUM/FOLIC AC 1 EACH TABLET GT (09:22)
[2024-06-23] MEDS: SENNOSIDES 8.6 MG TABLET GT ×2 (09:22→20:45)
--- NOTE | 2024-06-23 14:30 | PC.SS ---
IDT Note: RP Arlene Hinds attended meeting, charge nurse went over report, rn faculty went over her report. Arlene had a question regarding the brand name of formula, question answered. Arlene asked about range of motion being done, addressed that question. Arlene asked this SSD to continue to search for placement in a subacute closer to home in [place]. This SSD agreed and will email RP a list of facilities searched. IP nurse asked for consent for vaccines at which time Arlene decline any vaccines.
[2024-06-24] VITALS (10 sets, daily range): BP systolic 95–111; BP diastolic 47–73; PULSE 61–84; RESP 18–21; TEMP 36.2–36.9; O2SAT 95–98
--- NOTE | 2024-06-24 02:03 | PC.RT ---
nurse made aware stoma had hypergranulation and bleeding, no changes at this time.
[2024-06-24] MEDS: PROPRANOLOL 10 MG TABLET 20 MG GT ×3 (05:23→21:27)
[2024-06-24] MEDS: TEARS BOTH EYES ×2 (09:17→21:24)
[2024-06-24] MEDS: [UNRECOGNIZED DRUG - OTHER] BOTH EYES ×2 (09:17→21:24)
[2024-06-24] MEDS: DEXLANSOPRAZOLE 30 MG GT (09:17)
[2024-06-24] MEDS: FISH OIL GT (09:19)
[2024-06-24] MEDS: [UNRECOGNIZED DRUG - OTHER] GT (09:19)
[2024-06-24] MEDS: BORAGE GT (09:19)
[2024-06-24] MEDS: FLAX GT (09:19)
[2024-06-24] MEDS: MULTIVIT-MIN/IRON FUM/FOLIC AC 1 EACH TABLET GT (09:21)
[2024-06-24] MEDS: SENNOSIDES 8.6 MG TABLET GT ×2 (09:22→21:24)
[2024-06-25] VITALS (9 sets, daily range): BP systolic 100–115; BP diastolic 59–72; PULSE 57–74; RESP 18–20; TEMP 36.4–36.9; O2SAT 96–97
[2024-06-25] MEDS: DEXLANSOPRAZOLE 30 MG GT (08:54)
[2024-06-25] MEDS: FLAX GT (08:54)
[2024-06-25] MEDS: BORAGE GT (08:54)
[2024-06-25] MEDS: MULTIVIT-MIN/IRON FUM/FOLIC AC 1 EACH TABLET GT (08:54)
[2024-06-25] MEDS: FISH OIL GT (08:54)
[2024-06-25] MEDS: SENNOSIDES 8.6 MG TABLET GT ×2 (08:54→21:29)
[2024-06-25] MEDS: TEARS BOTH EYES ×2 (08:54→21:29)
[2024-06-25] MEDS: [UNRECOGNIZED DRUG - OTHER] BOTH EYES ×2 (08:54→21:29)
[2024-06-25] MEDS: [UNRECOGNIZED DRUG - OTHER] GT (08:54)
--- NOTE | 2024-06-25 11:11 | PC.SS ---
Room visit: Resident is laying in bed with head of the bed elevated with call light properly placed. Resident has no changes in care or condition, he remains on blow by with trach in place and GT in place for medication and nutrition. Resident will remain in current care as he is not ready to DC to lower level of care, due to heavy and complicated care regimen he will continue to have all subacute care needs met by staff. SSD will continue to make daily contact with resident and monitor for changes in mood and behavior.
[2024-06-25] MEDS: PROPRANOLOL 10 MG TABLET 20 MG GT (21:29)
[2024-06-25] MEDS: ACETAMINOPHEN 325 MG TABLET 650 MG GT (21:31)
--- NOTE | 2024-06-25 23:53 | PD.SAPROG ---
Progress Note - SubAcute DIAGNOSIS (1) Traumatic brain injury: Status: Chronic (2) Anoxic brain damage, not elsewhere classified: Status: Chronic (3) Tracheostomy status: Status: Chronic (4) Gastrostomy status: Status: Chronic (5) Chronic respiratory failure: Status: Chronic SUBJECTIVE Fever:: none GI:: none Shortness of Breath:: none GI:: no complaints Pain:: none OBJECTIVE Most recent vital signs: Last Vital Signs Temp 98.4 F 06/25/24 17:55 Pulse 72 06/25/24 21:29 Resp 18 06/25/24 17:55 BP 109/72 06/25/24 21:29 Pulse Ox 97 06/25/24 17:55 O2 Del Method Blow-by 06/25/24 17:55 O2 Flow Rate 10 06/25/24 06:35 FiO2 35 06/25/24 06:35 Neurological:: awake Speech:: none Answers questions:: sometimes (Sometimes opens eyes to command.) Respiratory:: lungs clear Cardiovascular: RRR Abdomen: soft and nontender Extremities:: deformities Decubitus:: none Tracheostomy:: to blow by Feeding per:: G tube Complaints:: none ASSESSMENT & PLAN Assessment: Stable status. No improvement in cognitive function. Diagnosis and treatment reviewed. Prognosis poor. Plan: Current treatment continued as ongoing
[2024-06-26] VITALS (9 sets, daily range): BP systolic 103–110; BP diastolic 61–70; PULSE 54–80; RESP 16–20; TEMP 36.5–36.6; O2SAT 96–98
[2024-06-26] MEDS: [UNRECOGNIZED DRUG - OTHER] BOTH EYES ×2 (09:00→21:37)
[2024-06-26] MEDS: MULTIVIT-MIN/IRON FUM/FOLIC AC 1 EACH TABLET GT (09:00)
[2024-06-26] MEDS: TEARS BOTH EYES ×2 (09:00→21:37)
[2024-06-26] MEDS: [UNRECOGNIZED DRUG - OTHER] GT (09:00)
[2024-06-26] MEDS: FLAX GT (09:00)
[2024-06-26] MEDS: MAGNESIUM HYDROXIDE 30 ML ORAL SUSP ML GT (09:00)
[2024-06-26] MEDS: FISH OIL GT (09:00)
[2024-06-26] MEDS: SENNOSIDES 8.6 MG TABLET GT ×2 (09:00→21:37)
[2024-06-26] MEDS: BORAGE GT (09:00)
[2024-06-26] MEDS: DEXLANSOPRAZOLE 30 MG GT (09:00)
[2024-06-27] VITALS (10 sets, daily range): BP systolic 95–126; BP diastolic 55–79; PULSE 56–86; RESP 17–20; TEMP 36.3–36.7; O2SAT 94–98
[2024-06-27] MEDS: PROPRANOLOL 10 MG TABLET 20 MG GT ×3 (05:28→21:45)
[2024-06-27] MEDS: TEARS BOTH EYES ×2 (09:01→20:47)
[2024-06-27] MEDS: [UNRECOGNIZED DRUG - OTHER] BOTH EYES ×2 (09:01→20:47)
[2024-06-27] MEDS: FISH OIL GT (09:02)
[2024-06-27] MEDS: [UNRECOGNIZED DRUG - OTHER] GT (09:02)
[2024-06-27] MEDS: DEXLANSOPRAZOLE 30 MG GT (09:02)
[2024-06-27] MEDS: FLAX GT (09:02)
[2024-06-27] MEDS: BORAGE GT (09:02)
[2024-06-27] MEDS: MULTIVIT-MIN/IRON FUM/FOLIC AC 1 EACH TABLET GT (09:03)
[2024-06-27] MEDS: SENNOSIDES 8.6 MG TABLET GT ×2 (09:03→20:47)
[2024-06-28] VITALS (10 sets, daily range): BP systolic 97–123; BP diastolic 61–83; PULSE 56–75; RESP 16–18; TEMP 36.2–36.8; O2SAT 93–98
[2024-06-28] MEDS: PROPRANOLOL 10 MG TABLET 20 MG GT ×2 (05:00→21:00)
[2024-06-28] MEDS: TEARS BOTH EYES ×2 (08:50→20:33)
[2024-06-28] MEDS: [UNRECOGNIZED DRUG - OTHER] BOTH EYES ×2 (08:50→20:33)
[2024-06-28] MEDS: FISH OIL GT (08:51)
[2024-06-28] MEDS: BORAGE GT (08:51)
[2024-06-28] MEDS: DEXLANSOPRAZOLE 30 MG GT (08:51)
[2024-06-28] MEDS: FLAX GT (08:51)
[2024-06-28] MEDS: MULTIVIT-MIN/IRON FUM/FOLIC AC 1 EACH TABLET GT (08:51)
[2024-06-28] MEDS: [UNRECOGNIZED DRUG - OTHER] GT (08:51)
[2024-06-28] MEDS: LOSARTAN 25 MG TABLET GT (08:51)
[2024-06-28] MEDS: SENNOSIDES 8.6 MG TABLET GT ×2 (08:52→20:33)
[2024-06-29] VITALS (9 sets, daily range): BP systolic 96–137; BP diastolic 53–74; PULSE 58–74; RESP 18–24; TEMP 36.1–36.3; O2SAT 94–97
[2024-06-29] MEDS: PROPRANOLOL 10 MG TABLET 20 MG GT ×2 (05:13→21:42)
[2024-06-29] MEDS: [UNRECOGNIZED DRUG - OTHER] GT (08:18)
[2024-06-29] MEDS: FLAX GT (08:18)
[2024-06-29] MEDS: FISH OIL GT (08:18)
[2024-06-29] MEDS: TEARS BOTH EYES ×2 (08:18→21:40)
[2024-06-29] MEDS: DEXLANSOPRAZOLE 30 MG GT (08:18)
[2024-06-29] MEDS: LOSARTAN 25 MG TABLET GT (08:18)
[2024-06-29] MEDS: BORAGE GT (08:18)
[2024-06-29] MEDS: [UNRECOGNIZED DRUG - OTHER] BOTH EYES ×2 (08:18→21:40)
[2024-06-29] MEDS: MULTIVIT-MIN/IRON FUM/FOLIC AC 1 EACH TABLET GT (08:19)
[2024-06-29] MEDS: SENNOSIDES 8.6 MG TABLET GT ×2 (08:19→21:40)
--- NOTE | 2024-06-29 15:41 | PC.SS ---
Resident seen by director of pediatric rehabilitation/Dr. Thomason for routine toe nail trim, no new orders or recommendation to continue current care.
--- NOTE | 2024-06-29 16:35 | PC.NURSE ---
Seen by Dr Ham, no new orders made
--- NOTE | 2024-06-29 21:47 | PD.SAPROG ---
Progress Note - SubAcute DIAGNOSIS (1) Traumatic brain injury: Status: Chronic (2) Anoxic brain damage, not elsewhere classified: Status: Chronic (3) Tracheostomy status: Status: Chronic (4) Gastrostomy status: Status: Chronic (5) Chronic respiratory failure: Status: Chronic SUBJECTIVE Fever:: none GI:: none Shortness of Breath:: none GI:: no complaints Pain:: none OBJECTIVE Most recent vital signs: Last Vital Signs Temp 97.0 F 06/29/24 17:08 Pulse 71 06/29/24 21:42 Resp 18 06/29/24 20:11 BP 107/71 06/29/24 21:42 Pulse Ox 96 06/29/24 20:11 O2 Del Method Blow-by 06/29/24 17:08 O2 Flow Rate 10 06/29/24 20:11 FiO2 35 06/29/24 20:11 Neurological:: awake Speech:: none Answers questions:: sometimes (Sometimes opens eyes to command.) Respiratory:: lungs clear Cardiovascular: RRR Abdomen: soft and nontender Extremities:: deformities Decubitus:: none Tracheostomy:: to blow by Feeding per:: G tube Complaints:: none ASSESSMENT & PLAN Assessment: Stable status. No improvement in cognitive function. Diagnosis and treatment reviewed. Prognosis remains poor. Plan: Current treatment continued as ongoing
[2024-06-30] VITALS (8 sets, daily range): BP systolic 92–132; BP diastolic 59–77; PULSE 57–75; RESP 18–20; TEMP 36.4; O2SAT 94–98
[2024-06-30] MEDS: [UNRECOGNIZED DRUG - OTHER] BOTH EYES ×2 (09:16→21:23)
[2024-06-30] MEDS: CARBAMIDE PEROXIDE OTIC SOL 15 ML BTL 5 DROP BOTH EARS (09:16)
[2024-06-30] MEDS: TEARS BOTH EYES ×2 (09:16→21:23)
[2024-06-30] MEDS: FISH OIL GT (09:17)
[2024-06-30] MEDS: DEXLANSOPRAZOLE 30 MG GT (09:17)
[2024-06-30] MEDS: LOSARTAN 25 MG TABLET GT (09:17)
[2024-06-30] MEDS: MULTIVIT-MIN/IRON FUM/FOLIC AC 1 EACH TABLET GT (09:17)
[2024-06-30] MEDS: FLAX GT (09:17)
[2024-06-30] MEDS: [UNRECOGNIZED DRUG - OTHER] GT (09:17)
[2024-06-30] MEDS: BORAGE GT (09:17)
[2024-06-30] MEDS: SENNOSIDES 8.6 MG TABLET GT ×2 (09:17→21:23)
[2024-06-30] MEDS: PROPRANOLOL 10 MG TABLET 20 MG GT (14:16)
[2024-07-01] VITALS (10 sets, daily range): BP systolic 96–112; BP diastolic 60–74; PULSE 61–89; RESP 17–20; TEMP 36.3–36.6; O2SAT 95–99
[2024-07-01] MEDS: PROPRANOLOL 10 MG TABLET 20 MG GT ×3 (05:37→22:00)
[2024-07-01] MEDS: [UNRECOGNIZED DRUG - OTHER] BOTH EYES ×2 (09:20→20:45)
[2024-07-01] MEDS: FISH OIL GT (09:20)
[2024-07-01] MEDS: FLAX GT (09:20)
[2024-07-01] MEDS: TEARS BOTH EYES ×2 (09:20→20:45)
[2024-07-01] MEDS: [UNRECOGNIZED DRUG - OTHER] GT (09:20)
[2024-07-01] MEDS: BORAGE GT (09:20)
[2024-07-01] MEDS: DEXLANSOPRAZOLE 30 MG GT (09:20)
[2024-07-01] MEDS: SENNOSIDES 8.6 MG TABLET GT ×2 (09:21→20:45)
[2024-07-01] MEDS: MULTIVIT-MIN/IRON FUM/FOLIC AC 1 EACH TABLET GT (09:21)
[2024-07-02] VITALS (10 sets, daily range): BP systolic 95–104; BP diastolic 58–65; PULSE 61–72; RESP 18–20; TEMP 36.2–36.8; O2SAT 96–98
[2024-07-02] MEDS: PROPRANOLOL 10 MG TABLET 20 MG GT ×2 (05:09→14:53)
[2024-07-02] MEDS: DEXLANSOPRAZOLE 30 MG GT (09:02)
[2024-07-02] MEDS: TEARS BOTH EYES ×2 (09:02→20:18)
[2024-07-02] MEDS: FLAX GT (09:02)
[2024-07-02] MEDS: FISH OIL GT (09:02)
[2024-07-02] MEDS: BORAGE GT (09:02)
[2024-07-02] MEDS: [UNRECOGNIZED DRUG - OTHER] BOTH EYES ×2 (09:02→20:18)
[2024-07-02] MEDS: [UNRECOGNIZED DRUG - OTHER] GT (09:02)
[2024-07-02] MEDS: MULTIVIT-MIN/IRON FUM/FOLIC AC 1 EACH TABLET GT (09:03)
[2024-07-02] MEDS: SENNOSIDES 8.6 MG TABLET GT ×2 (09:04→20:18)
[2024-07-03] VITALS (10 sets, daily range): BP systolic 99–114; BP diastolic 65–78; PULSE 56–80; RESP 17–56; TEMP 36.4–36.8; O2SAT 90–98
[2024-07-03] MEDS: PROPRANOLOL 10 MG TABLET 20 MG GT ×3 (05:13→21:16)
[2024-07-03] MEDS: FISH OIL GT (08:53)
[2024-07-03] MEDS: [UNRECOGNIZED DRUG - OTHER] BOTH EYES ×2 (08:53→21:16)
[2024-07-03] MEDS: [UNRECOGNIZED DRUG - OTHER] GT (08:53)
[2024-07-03] MEDS: TEARS BOTH EYES ×2 (08:53→21:16)
[2024-07-03] MEDS: BORAGE GT (08:53)
[2024-07-03] MEDS: DEXLANSOPRAZOLE 30 MG GT (08:53)
[2024-07-03] MEDS: FLAX GT (08:53)
[2024-07-03] MEDS: CARBAMIDE PEROXIDE OTIC SOL 15 ML BTL 5 DROP BOTH EARS (08:53)
[2024-07-03] MEDS: SENNOSIDES 8.6 MG TABLET GT ×2 (08:54→21:16)
[2024-07-03] MEDS: MULTIVIT-MIN/IRON FUM/FOLIC AC 1 EACH TABLET GT (08:54)
--- NOTE | 2024-07-03 23:28 | PD.SAPROG ---
Progress Note - SubAcute DIAGNOSIS (1) Traumatic brain injury: Status: Chronic (2) Anoxic brain damage, not elsewhere classified: Status: Chronic (3) Tracheostomy status: Status: Chronic (4) Gastrostomy status: Status: Chronic (5) Chronic respiratory failure: Status: Chronic SUBJECTIVE Fever:: none GI:: none Shortness of Breath:: none GI:: no complaints Pain:: none OBJECTIVE Most recent vital signs: Last Vital Signs Temp 98.3 F 07/03/24 18:00 Pulse 80 07/03/24 21:16 Resp 18 07/03/24 18:10 BP 100/65 07/03/24 21:16 Pulse Ox 96 07/03/24 18:10 O2 Del Method Blow-by 07/03/24 18:00 O2 Flow Rate 10 07/03/24 18:10 FiO2 35 07/03/24 18:10 Neurological:: awake Speech:: none Answers questions:: sometimes (Sometimes opens eyes to command.) Respiratory:: lungs clear Cardiovascular: RRR Abdomen: soft and nontender Extremities:: deformities Decubitus:: none Tracheostomy:: to blow by Feeding per:: G tube Complaints:: none ASSESSMENT & PLAN Assessment: Stable status. No improvement in cognitive function. Diagnosis and treatment reviewed. Prognosis remains poor. Plan: Current treatment continued as ongoing
[2024-07-04] VITALS (10 sets, daily range): BP systolic 92–129; BP diastolic 54–76; PULSE 59–77; RESP 17–20; TEMP 36.1–36.6; O2SAT 94–98
[2024-07-04] MEDS: [UNRECOGNIZED DRUG - OTHER] BOTH EYES ×2 (08:32→21:01)
[2024-07-04] MEDS: BORAGE GT (08:32)
[2024-07-04] MEDS: DEXLANSOPRAZOLE 30 MG GT (08:32)
[2024-07-04] MEDS: [UNRECOGNIZED DRUG - OTHER] GT (08:32)
[2024-07-04] MEDS: TEARS BOTH EYES ×2 (08:32→21:01)
[2024-07-04] MEDS: FISH OIL GT (08:32)
[2024-07-04] MEDS: FLAX GT (08:32)
[2024-07-04] MEDS: MULTIVIT-MIN/IRON FUM/FOLIC AC 1 EACH TABLET GT (08:33)
[2024-07-04] MEDS: SENNOSIDES 8.6 MG TABLET GT ×2 (08:33→21:02)
[2024-07-04] MEDS: LOSARTAN 25 MG TABLET GT (08:33)
[2024-07-04] MEDS: PROPRANOLOL 10 MG TABLET 20 MG GT (14:55)
[2024-07-05] VITALS (10 sets, daily range): BP systolic 93–127; BP diastolic 57–77; PULSE 56–85; RESP 17–20; TEMP 36.3–36.7; O2SAT 95–98
[2024-07-05] MEDS: PROPRANOLOL 10 MG TABLET 20 MG GT ×2 (05:17→13:46)
[2024-07-05] MEDS: [UNRECOGNIZED DRUG - OTHER] BOTH EYES ×2 (09:15→20:23)
[2024-07-05] MEDS: TEARS BOTH EYES ×2 (09:15→20:23)
[2024-07-05] MEDS: FLAX GT (09:17)
[2024-07-05] MEDS: DEXLANSOPRAZOLE 30 MG GT (09:17)
[2024-07-05] MEDS: BORAGE GT (09:17)
[2024-07-05] MEDS: [UNRECOGNIZED DRUG - OTHER] GT (09:17)
[2024-07-05] MEDS: FISH OIL GT (09:17)
[2024-07-05] MEDS: SENNOSIDES 8.6 MG TABLET GT ×2 (09:18→20:25)
[2024-07-05] MEDS: MULTIVIT-MIN/IRON FUM/FOLIC AC 1 EACH TABLET GT (09:18)
[2024-07-06] VITALS (10 sets, daily range): BP systolic 104–118; BP diastolic 57–74; PULSE 50–88; RESP 16–20; TEMP 36.2–36.8; O2SAT 94–98
[2024-07-06] MEDS: PROPRANOLOL 10 MG TABLET 20 MG GT ×2 (05:06→21:23)
[2024-07-06] MEDS: DEXLANSOPRAZOLE 30 MG GT (08:15)
[2024-07-06] MEDS: [UNRECOGNIZED DRUG - OTHER] BOTH EYES ×2 (08:15→20:34)
[2024-07-06] MEDS: TEARS BOTH EYES ×2 (08:15→20:34)
[2024-07-06] MEDS: FLAX GT (08:16)
[2024-07-06] MEDS: FISH OIL GT (08:16)
[2024-07-06] MEDS: MULTIVIT-MIN/IRON FUM/FOLIC AC 1 EACH TABLET GT (08:16)
[2024-07-06] MEDS: BORAGE GT (08:16)
[2024-07-06] MEDS: [UNRECOGNIZED DRUG - OTHER] GT (08:16)
[2024-07-06] MEDS: SENNOSIDES 8.6 MG TABLET GT ×2 (08:17→20:34)
[2024-07-06] MEDS: ACETAMINOPHEN 325 MG TABLET 650 MG GT (08:17)
[2024-07-07] VITALS (9 sets, daily range): BP systolic 97–120; BP diastolic 59–78; PULSE 53–72; RESP 18–20; TEMP 36.3–36.7; O2SAT 95
[2024-07-07] MEDS: [UNRECOGNIZED DRUG - OTHER] BOTH EYES ×2 (08:14→20:07)
[2024-07-07] MEDS: TEARS BOTH EYES ×2 (08:14→20:07)
[2024-07-07] MEDS: FLAX GT (08:15)
[2024-07-07] MEDS: LOSARTAN 25 MG TABLET GT (08:15)
[2024-07-07] MEDS: FISH OIL GT (08:15)
[2024-07-07] MEDS: [UNRECOGNIZED DRUG - OTHER] GT (08:15)
[2024-07-07] MEDS: MULTIVIT-MIN/IRON FUM/FOLIC AC 1 EACH TABLET GT (08:15)
[2024-07-07] MEDS: SENNOSIDES 8.6 MG TABLET GT ×2 (08:15→20:08)
[2024-07-07] MEDS: BORAGE GT (08:15)
[2024-07-07] MEDS: DEXLANSOPRAZOLE 30 MG GT (08:15)
--- NOTE | 2024-07-07 11:34 | PC.SS ---
Resident seen by Dr. Trimble/PEPPER for oral exam. Resident tolerated treatment will with no new recommendations. Resident to continue current care and will be seen by STANLEYS annually and PRN.
[2024-07-07] MEDS: PROPRANOLOL 10 MG TABLET 20 MG GT ×2 (13:33→21:14)
--- NOTE | 2024-07-07 16:34 | PD.SAPROG ---
Progress Note - SubAcute DIAGNOSIS (1) Traumatic brain injury: Status: Chronic (2) Anoxic brain damage, not elsewhere classified: Status: Chronic (3) Tracheostomy status: Status: Chronic (4) Gastrostomy status: Status: Chronic (5) Chronic respiratory failure: Status: Chronic SUBJECTIVE Fever:: none GI:: none Shortness of Breath:: none GI:: no complaints Pain:: none OBJECTIVE Most recent vital signs: Last Vital Signs Temp 97.3 F 07/07/24 12:00 Pulse 70 07/07/24 13:33 Resp 18 07/07/24 12:00 BP 106/70 07/07/24 13:33 Pulse Ox 95 07/07/24 06:32 O2 Del Method Blow-by 07/06/24 18:00 O2 Flow Rate 10 07/07/24 06:32 FiO2 35 07/07/24 06:32 Neurological:: awake Speech:: none Answers questions:: sometimes (Sometimes opens eyes to command.) Respiratory:: lungs clear Cardiovascular: RRR Abdomen: soft and nontender Extremities:: deformities Decubitus:: none Tracheostomy:: to blow by Feeding per:: G tube Complaints:: none ASSESSMENT & PLAN Assessment: Stable status. No improvement in cognitive function. Diagnosis and treatment reviewed. Prognosis remains poor. Plan: Current treatment continued as ongoing
[2024-07-08] VITALS (10 sets, daily range): BP systolic 92–113; BP diastolic 57–74; PULSE 53–73; RESP 16–20; TEMP 36.4–36.6; O2SAT 94–96
[2024-07-08] MEDS: PROPRANOLOL 10 MG TABLET 20 MG GT ×3 (05:49→22:00)
[2024-07-08] MEDS: TEARS BOTH EYES ×2 (08:30→20:43)
[2024-07-08] MEDS: SENNOSIDES 8.6 MG TABLET GT ×2 (08:30→20:43)
[2024-07-08] MEDS: MULTIVIT-MIN/IRON FUM/FOLIC AC 1 EACH TABLET GT (08:30)
[2024-07-08] MEDS: [UNRECOGNIZED DRUG - OTHER] GT (08:30)
[2024-07-08] MEDS: FLAX GT (08:30)
[2024-07-08] MEDS: FISH OIL GT (08:30)
[2024-07-08] MEDS: [UNRECOGNIZED DRUG - OTHER] BOTH EYES ×2 (08:30→20:43)
[2024-07-08] MEDS: DEXLANSOPRAZOLE 30 MG GT (08:30)
[2024-07-08] MEDS: BORAGE GT (08:30)
[2024-07-09] VITALS (10 sets, daily range): BP systolic 101–127; BP diastolic 56–76; PULSE 55–687; RESP 18–20; TEMP 36.4–36.5; O2SAT 93–97
[2024-07-09] MEDS: PROPRANOLOL 10 MG TABLET 20 MG GT ×3 (05:49→21:27)
[2024-07-09] MEDS: FISH OIL GT (08:09)
[2024-07-09] MEDS: [UNRECOGNIZED DRUG - OTHER] GT (08:09)
[2024-07-09] MEDS: BORAGE GT (08:09)
[2024-07-09] MEDS: MULTIVIT-MIN/IRON FUM/FOLIC AC 1 EACH TABLET GT (08:09)
[2024-07-09] MEDS: FLAX GT (08:09)
[2024-07-09] MEDS: SENNOSIDES 8.6 MG TABLET GT ×2 (08:09→20:08)
[2024-07-09] MEDS: LOSARTAN 25 MG TABLET GT (08:09)
[2024-07-09] MEDS: [UNRECOGNIZED DRUG - OTHER] BOTH EYES ×2 (08:10→20:08)
[2024-07-09] MEDS: TEARS BOTH EYES ×2 (08:10→20:08)
[2024-07-09] MEDS: DEXLANSOPRAZOLE 30 MG GT (08:10)
[2024-07-10] VITALS (10 sets, daily range): BP systolic 102–114; BP diastolic 58–76; PULSE 53–69; RESP 18–20; TEMP 36.2–36.7; O2SAT 95–98
[2024-07-10] MEDS: PROPRANOLOL 10 MG TABLET 20 MG GT ×2 (05:04→13:26)
[2024-07-10] MEDS: BORAGE GT (08:06)
[2024-07-10] MEDS: FISH OIL GT (08:06)
[2024-07-10] MEDS: [UNRECOGNIZED DRUG - OTHER] BOTH EYES ×2 (08:06→20:14)
[2024-07-10] MEDS: FLAX GT (08:06)
[2024-07-10] MEDS: DEXLANSOPRAZOLE 30 MG GT (08:06)
[2024-07-10] MEDS: TEARS BOTH EYES ×2 (08:06→20:14)
[2024-07-10] MEDS: MULTIVIT-MIN/IRON FUM/FOLIC AC 1 EACH TABLET GT (08:06)
[2024-07-10] MEDS: [UNRECOGNIZED DRUG - OTHER] GT (08:06)
[2024-07-10] MEDS: SENNOSIDES 8.6 MG TABLET GT ×2 (08:06→20:14)
[2024-07-11] VITALS (10 sets, daily range): BP systolic 98–126; BP diastolic 60–76; PULSE 56–71; RESP 18–20; TEMP 36.4–36.7; O2SAT 96–97
[2024-07-11] MEDS: PROPRANOLOL 10 MG TABLET 20 MG GT ×2 (05:24→21:36)
[2024-07-11] MEDS: TEARS BOTH EYES ×2 (08:37→20:35)
[2024-07-11] MEDS: [UNRECOGNIZED DRUG - OTHER] BOTH EYES ×2 (08:37→20:35)
[2024-07-11] MEDS: DEXLANSOPRAZOLE 30 MG GT (08:37)
[2024-07-11] MEDS: BORAGE GT (08:38)
[2024-07-11] MEDS: [UNRECOGNIZED DRUG - OTHER] GT (08:38)
[2024-07-11] MEDS: FLAX GT (08:38)
[2024-07-11] MEDS: FISH OIL GT (08:38)
[2024-07-11] MEDS: MULTIVIT-MIN/IRON FUM/FOLIC AC 1 EACH TABLET GT (08:39)
[2024-07-11] MEDS: SENNOSIDES 8.6 MG TABLET GT ×2 (08:39→20:35)
--- NOTE | 2024-07-11 17:40 | PD.SAPROG ---
Progress Note - SubAcute DIAGNOSIS (1) Traumatic brain injury: Status: Chronic (2) Anoxic brain damage, not elsewhere classified: Status: Chronic (3) Tracheostomy status: Status: Chronic (4) Gastrostomy status: Status: Chronic (5) Chronic respiratory failure: Status: Chronic SUBJECTIVE Fever:: none GI:: none Shortness of Breath:: none GI:: no complaints Pain:: none OBJECTIVE Most recent vital signs: Last Vital Signs Temp 98.0 F 07/11/24 17:05 Pulse 67 07/11/24 17:05 Resp 20 07/11/24 17:05 BP 116/70 07/11/24 17:05 Pulse Ox 97 07/11/24 17:05 O2 Del Method Blow-by 07/11/24 17:05 O2 Flow Rate 10 07/11/24 17:05 FiO2 35 07/11/24 17:05 Neurological:: awake Speech:: none Answers questions:: sometimes (Sometimes opens eyes to command.) Respiratory:: lungs clear Cardiovascular: RRR Abdomen: soft and nontender Extremities:: deformities Decubitus:: none Tracheostomy:: to blow by Feeding per:: G tube Complaints:: none ASSESSMENT & PLAN Assessment: Stable status. No improvement in cognitive function. Diagnosis and treatment reviewed. Prognosis remains poor. No evident pain . Plan: Current treatment continued as ongoing
[2024-07-12] VITALS (10 sets, daily range): BP systolic 96–127; BP diastolic 61–69; PULSE 55–91; RESP 18–23; TEMP 36.1–36.6; O2SAT 95–99
[2024-07-12] MEDS: PROPRANOLOL 10 MG TABLET 20 MG GT ×2 (05:04→21:26)
[2024-07-12] MEDS: SENNOSIDES 8.6 MG TABLET GT ×2 (08:17→20:18)
[2024-07-12] MEDS: MULTIVIT-MIN/IRON FUM/FOLIC AC 1 EACH TABLET GT (08:17)
[2024-07-12] MEDS: TEARS BOTH EYES ×2 (08:18→20:18)
[2024-07-12] MEDS: [UNRECOGNIZED DRUG - OTHER] BOTH EYES ×2 (08:18→20:18)
[2024-07-12] MEDS: LOSARTAN 25 MG TABLET GT (08:18)
[2024-07-12] MEDS: [UNRECOGNIZED DRUG - OTHER] GT (08:18)
[2024-07-12] MEDS: BORAGE GT (08:18)
[2024-07-12] MEDS: FLAX GT (08:18)
[2024-07-12] MEDS: FISH OIL GT (08:18)
[2024-07-12] MEDS: DEXLANSOPRAZOLE 30 MG GT (08:18)
[2024-07-13] VITALS (10 sets, daily range): BP systolic 97–115; BP diastolic 61–70; PULSE 42–77; RESP 16–20; TEMP 35.7–36.5; O2SAT 92–97
[2024-07-13] MEDS: [UNRECOGNIZED DRUG - OTHER] GT (08:54)
[2024-07-13] MEDS: LOSARTAN 25 MG TABLET GT (08:54)
[2024-07-13] MEDS: TEARS BOTH EYES ×2 (08:54→20:16)
[2024-07-13] MEDS: [UNRECOGNIZED DRUG - OTHER] BOTH EYES ×2 (08:54→20:16)
[2024-07-13] MEDS: MULTIVIT-MIN/IRON FUM/FOLIC AC 1 EACH TABLET GT (08:54)
[2024-07-13] MEDS: DEXLANSOPRAZOLE 30 MG GT (08:54)
[2024-07-13] MEDS: FISH OIL GT (08:54)
[2024-07-13] MEDS: BORAGE GT (08:54)
[2024-07-13] MEDS: FLAX GT (08:54)
[2024-07-13] MEDS: SENNOSIDES 8.6 MG TABLET GT ×2 (08:55→20:16)
--- NOTE | 2024-07-13 21:25 | PD.SAPROG ---
Progress Note - SubAcute DIAGNOSIS (1) Traumatic brain injury: Status: Chronic (2) Anoxic brain damage, not elsewhere classified: Status: Chronic (3) Tracheostomy status: Status: Chronic (4) Gastrostomy status: Status: Chronic (5) Chronic respiratory failure: Status: Chronic SUBJECTIVE Fever:: none GI:: none Shortness of Breath:: none GI:: no complaints Pain:: none OBJECTIVE Most recent vital signs: Last Vital Signs Temp 97.6 F 07/13/24 17:41 Pulse 77 07/13/24 21:01 Resp 19 07/13/24 17:41 BP 98/63 07/13/24 21:01 Pulse Ox 96 07/13/24 17:41 O2 Del Method Blow-by 07/13/24 17:41 O2 Flow Rate 10 07/13/24 07:00 FiO2 35 07/13/24 07:00 Neurological:: awake Speech:: none Answers questions:: sometimes (Sometimes opens eyes to command.) Respiratory:: lungs clear Cardiovascular: RRR Abdomen: soft and nontender Extremities:: deformities Decubitus:: none Tracheostomy:: to blow by Feeding per:: G tube Complaints:: none ASSESSMENT & PLAN Assessment: Stable status. No improvement in cognitive function. Diagnosis and treatment reviewed. Prognosis remains poor. No evident pain . Plan: Current treatment continued as ongoing
[2024-07-14] VITALS (10 sets, daily range): BP systolic 110–130; BP diastolic 67–84; PULSE 52–82; RESP 18–19; TEMP 36.2–36.7; O2SAT 93–99
[2024-07-14] MEDS: PROPRANOLOL 10 MG TABLET 20 MG GT ×3 (05:01→21:08)
[2024-07-14] MEDS: [UNRECOGNIZED DRUG - OTHER] BOTH EYES ×2 (08:11→20:19)
[2024-07-14] MEDS: TEARS BOTH EYES ×2 (08:11→20:19)
[2024-07-14] MEDS: FISH OIL GT (08:12)
[2024-07-14] MEDS: SENNOSIDES 8.6 MG TABLET GT ×2 (08:12→20:19)
[2024-07-14] MEDS: DEXLANSOPRAZOLE 30 MG GT (08:12)
[2024-07-14] MEDS: [UNRECOGNIZED DRUG - OTHER] GT (08:12)
[2024-07-14] MEDS: BORAGE GT (08:12)
[2024-07-14] MEDS: LOSARTAN 25 MG TABLET GT (08:12)
[2024-07-14] MEDS: MULTIVIT-MIN/IRON FUM/FOLIC AC 1 EACH TABLET GT (08:12)
[2024-07-14] MEDS: FLAX GT (08:12)
[2024-07-15] VITALS (10 sets, daily range): BP systolic 99–113; BP diastolic 57–73; PULSE 56–75; RESP 15–19; TEMP 36.1–36.6; O2SAT 92–98
[2024-07-15] MEDS: TEARS BOTH EYES ×2 (08:23→20:49)
[2024-07-15] MEDS: [UNRECOGNIZED DRUG - OTHER] BOTH EYES ×2 (08:23→20:49)
[2024-07-15] MEDS: DEXLANSOPRAZOLE 30 MG GT (08:23)
[2024-07-15] MEDS: FISH OIL GT (08:24)
[2024-07-15] MEDS: [UNRECOGNIZED DRUG - OTHER] GT (08:24)
[2024-07-15] MEDS: BORAGE GT (08:24)
[2024-07-15] MEDS: FLAX GT (08:24)
[2024-07-15] MEDS: MULTIVIT-MIN/IRON FUM/FOLIC AC 1 EACH TABLET GT (08:25)
[2024-07-15] MEDS: SENNOSIDES 8.6 MG TABLET GT ×2 (08:26→20:49)
[2024-07-15] MEDS: PROPRANOLOL 10 MG TABLET 20 MG GT (21:03)
[2024-07-16] VITALS (10 sets, daily range): BP systolic 99–118; BP diastolic 60–73; PULSE 50–82; RESP 18–21; TEMP 36.2–36.7; O2SAT 94–99
[2024-07-16] MEDS: PROPRANOLOL 10 MG TABLET 20 MG GT ×2 (05:43→13:49)
[2024-07-16] MEDS: TEARS BOTH EYES ×2 (08:07→20:42)
[2024-07-16] MEDS: [UNRECOGNIZED DRUG - OTHER] BOTH EYES ×2 (08:07→20:42)
[2024-07-16] MEDS: MULTIVIT-MIN/IRON FUM/FOLIC AC 1 EACH TABLET GT (08:08)
[2024-07-16] MEDS: SENNOSIDES 8.6 MG TABLET GT ×2 (08:08→20:42)
[2024-07-16] MEDS: DEXLANSOPRAZOLE 30 MG GT (08:09)
[2024-07-16] MEDS: BORAGE GT (08:09)
[2024-07-16] MEDS: FISH OIL GT (08:09)
[2024-07-16] MEDS: [UNRECOGNIZED DRUG - OTHER] GT (08:09)
[2024-07-16] MEDS: FLAX GT (08:09)
[2024-07-17] VITALS (11 sets, daily range): BP systolic 95–122; BP diastolic 67–88; PULSE 57–79; RESP 16–18; TEMP 36.3–36.7; O2SAT 94–98
[2024-07-17] MEDS: MULTIVIT-MIN/IRON FUM/FOLIC AC 1 EACH TABLET GT (09:07)
[2024-07-17] MEDS: TEARS BOTH EYES ×2 (09:07→20:46)
[2024-07-17] MEDS: [UNRECOGNIZED DRUG - OTHER] BOTH EYES ×2 (09:07→20:46)
[2024-07-17] MEDS: SENNOSIDES 8.6 MG TABLET GT ×2 (09:07→20:46)
[2024-07-17] MEDS: DEXLANSOPRAZOLE 30 MG GT (09:07)
[2024-07-17] MEDS: FISH OIL GT (09:07)
[2024-07-17] MEDS: BORAGE GT (09:07)
[2024-07-17] MEDS: [UNRECOGNIZED DRUG - OTHER] GT (09:07)
[2024-07-17] MEDS: FLAX GT (09:07)
[2024-07-17] MEDS: PROPRANOLOL 10 MG TABLET 20 MG GT (13:24)
--- NOTE | 2024-07-17 14:59 | PC.SS ---
Room visit: Resident is laying in bed with head of the bed elevated with call light properly placed with no signs of distress. Resident has no changes in care or condition, resident remains on blow by with trach in place and GT for medication and nutrition. Resident will remain in current care and will continue to have all subacute care needs met by staff. This SSD will continue to make daily contact with resident and monitor for changes in mood and behavior.
--- NOTE | 2024-07-17 21:33 | PD.SAPROG ---
Progress Note - SubAcute DIAGNOSIS (1) Traumatic brain injury: Status: Chronic (2) Anoxic brain damage, not elsewhere classified: Status: Chronic (3) Tracheostomy status: Status: Chronic (4) Gastrostomy status: Status: Chronic (5) Chronic respiratory failure: Status: Chronic SUBJECTIVE Fever:: none GI:: none Shortness of Breath:: none GI:: no complaints Pain:: none OBJECTIVE Most recent vital signs: Last Vital Signs Temp 98.1 F 07/17/24 17:03 Pulse 66 07/17/24 21:10 Resp 18 07/17/24 19:05 BP 96/88 H 07/17/24 21:10 Pulse Ox 95 07/17/24 19:05 O2 Del Method Blow-by 07/17/24 17:03 O2 Flow Rate 10 07/17/24 19:05 FiO2 35 07/17/24 19:05 Neurological:: awake Speech:: none Answers questions:: sometimes (Sometimes opens eyes to command.) Respiratory:: lungs clear Cardiovascular: RRR Abdomen: soft and nontender Extremities:: deformities Decubitus:: none Tracheostomy:: to blow by Feeding per:: G tube Complaints:: none ASSESSMENT & PLAN Assessment: Stable status. No improvement in cognitive function. Diagnosis and treatment reviewed. Prognosis remains poor. No evident pain . Plan: Current treatment continued as ongoing
[2024-07-18] VITALS (10 sets, daily range): BP systolic 96–116; BP diastolic 60–81; PULSE 56–83; RESP 18–20; TEMP 36.4–36.9; O2SAT 95–99
[2024-07-18] MEDS: PROPRANOLOL 10 MG TABLET 20 MG GT ×3 (05:02→21:12)
[2024-07-18] MEDS: [UNRECOGNIZED DRUG - OTHER] GT (08:31)
[2024-07-18] MEDS: BORAGE GT (08:31)
[2024-07-18] MEDS: FISH OIL GT (08:31)
[2024-07-18] MEDS: FLAX GT (08:31)
[2024-07-18] MEDS: [UNRECOGNIZED DRUG - OTHER] BOTH EYES ×2 (08:31→21:12)
[2024-07-18] MEDS: DEXLANSOPRAZOLE 30 MG GT (08:31)
[2024-07-18] MEDS: TEARS BOTH EYES ×2 (08:31→21:12)
[2024-07-18] MEDS: LOSARTAN 25 MG TABLET GT (08:32)
[2024-07-18] MEDS: SENNOSIDES 8.6 MG TABLET GT ×2 (08:33→21:13)
[2024-07-18] MEDS: MULTIVIT-MIN/IRON FUM/FOLIC AC 1 EACH TABLET GT (08:33)
[2024-07-19] VITALS (9 sets, daily range): BP systolic 84–111; BP diastolic 62–73; PULSE 57–73; RESP 18–20; TEMP 36.4–36.6; O2SAT 97–98
[2024-07-19] MEDS: PROPRANOLOL 10 MG TABLET 20 MG GT ×2 (05:06→13:24)
[2024-07-19] MEDS: [UNRECOGNIZED DRUG - OTHER] GT (09:00)
[2024-07-19] MEDS: FLAX GT (09:00)
[2024-07-19] MEDS: DEXLANSOPRAZOLE 30 MG GT (09:00)
[2024-07-19] MEDS: BORAGE GT (09:00)
[2024-07-19] MEDS: MULTIVIT-MIN/IRON FUM/FOLIC AC 1 EACH TABLET GT (09:00)
[2024-07-19] MEDS: LOSARTAN 25 MG TABLET GT (09:00)
[2024-07-19] MEDS: FISH OIL GT (09:00)
[2024-07-19] MEDS: SENNOSIDES 8.6 MG TABLET GT ×2 (09:00→20:23)
[2024-07-19] MEDS: TEARS BOTH EYES ×2 (09:00→20:23)
[2024-07-19] MEDS: [UNRECOGNIZED DRUG - OTHER] BOTH EYES ×2 (09:00→20:23)
[2024-07-20] VITALS (10 sets, daily range): BP systolic 98–121; BP diastolic 60–74; PULSE 52–75; RESP 16–20; TEMP 36.3–36.6; O2SAT 95–98
[2024-07-20] MEDS: PROPRANOLOL 10 MG TABLET 20 MG GT (05:27)
[2024-07-20] MEDS: TEARS BOTH EYES ×2 (08:09→20:36)
[2024-07-20] MEDS: [UNRECOGNIZED DRUG - OTHER] BOTH EYES ×2 (08:09→20:36)
[2024-07-20] MEDS: [UNRECOGNIZED DRUG - OTHER] GT (08:10)
[2024-07-20] MEDS: FLAX GT (08:10)
[2024-07-20] MEDS: FISH OIL GT (08:10)
[2024-07-20] MEDS: DEXLANSOPRAZOLE 30 MG GT (08:10)
[2024-07-20] MEDS: BORAGE GT (08:10)
[2024-07-20] MEDS: SENNOSIDES 8.6 MG TABLET GT ×2 (08:12→20:37)
[2024-07-20] MEDS: MULTIVIT-MIN/IRON FUM/FOLIC AC 1 EACH TABLET GT (08:12)
[2024-07-21] VITALS (9 sets, daily range): BP systolic 98–126; BP diastolic 58–76; PULSE 55–78; RESP 17–19; TEMP 36.6–36.8; O2SAT 93–98
[2024-07-21] MEDS: FLAX GT (08:18)
[2024-07-21] MEDS: BORAGE GT (08:18)
[2024-07-21] MEDS: [UNRECOGNIZED DRUG - OTHER] BOTH EYES ×2 (08:18→20:22)
[2024-07-21] MEDS: FISH OIL GT (08:18)
[2024-07-21] MEDS: DEXLANSOPRAZOLE 30 MG GT (08:18)
[2024-07-21] MEDS: MULTIVIT-MIN/IRON FUM/FOLIC AC 1 EACH TABLET GT (08:18)
[2024-07-21] MEDS: SENNOSIDES 8.6 MG TABLET GT ×2 (08:18→20:22)
[2024-07-21] MEDS: [UNRECOGNIZED DRUG - OTHER] GT (08:18)
[2024-07-21] MEDS: TEARS BOTH EYES ×2 (08:18→20:22)
[2024-07-21] MEDS: PROPRANOLOL 10 MG TABLET 20 MG GT (21:20)
--- NOTE | 2024-07-21 22:15 | PD.SAPROG ---
Progress Note - SubAcute DIAGNOSIS (1) Traumatic brain injury: Status: Chronic (2) Anoxic brain damage, not elsewhere classified: Status: Chronic (3) Tracheostomy status: Status: Chronic (4) Gastrostomy status: Status: Chronic (5) Chronic respiratory failure: Status: Chronic SUBJECTIVE Fever:: none GI:: none Shortness of Breath:: none GI:: no complaints Pain:: none OBJECTIVE Most recent vital signs: Last Vital Signs Temp 98.2 F 07/21/24 17:55 Pulse 67 07/21/24 21:20 Resp 19 07/21/24 18:35 BP 126/76 07/21/24 21:20 Pulse Ox 97 07/21/24 18:35 O2 Del Method Blow-by 07/21/24 17:55 O2 Flow Rate 8 07/21/24 18:35 FiO2 30 07/21/24 18:35 Neurological:: awake Speech:: none Answers questions:: sometimes (Sometimes opens eyes to command.) Respiratory:: lungs clear Cardiovascular: RRR Abdomen: soft and nontender Extremities:: deformities Decubitus:: none Tracheostomy:: to blow by Feeding per:: G tube Complaints:: none ASSESSMENT & PLAN Assessment: Stable status. No improvement in cognitive function. Diagnosis and treatment reviewed. Prognosis remains poor. No evident pain . Plan: Current treatment continued as ongoing
[2024-07-22] VITALS (10 sets, daily range): BP systolic 97–126; BP diastolic 59–81; PULSE 57–79; RESP 16–20; TEMP 36.3–36.7; O2SAT 96–98
[2024-07-22] MEDS: PROPRANOLOL 10 MG TABLET 20 MG GT ×3 (05:32→21:02)
[2024-07-22] MEDS: [UNRECOGNIZED DRUG - OTHER] BOTH EYES ×2 (08:29→20:58)
[2024-07-22] MEDS: TEARS BOTH EYES ×2 (08:29→20:58)
[2024-07-22] MEDS: DEXLANSOPRAZOLE 30 MG GT (08:29)
[2024-07-22] MEDS: FISH OIL GT (08:30)
[2024-07-22] MEDS: BORAGE GT (08:30)
[2024-07-22] MEDS: FLAX GT (08:30)
[2024-07-22] MEDS: [UNRECOGNIZED DRUG - OTHER] GT (08:30)
[2024-07-22] MEDS: MULTIVIT-MIN/IRON FUM/FOLIC AC 1 EACH TABLET GT (08:33)
[2024-07-22] MEDS: SENNOSIDES 8.6 MG TABLET GT ×2 (08:33→20:58)
[2024-07-22] MEDS: MAGNESIUM HYDROXIDE 30 ML ORAL SUSP ML GT (23:00)
[2024-07-23] VITALS (10 sets, daily range): BP systolic 94–134; BP diastolic 56–82; PULSE 64–116; RESP 16–24; TEMP 36.1–37.1; O2SAT 95–98
[2024-07-23] MEDS: PROPRANOLOL 10 MG TABLET 20 MG GT ×3 (06:00→21:28)
[2024-07-23] MEDS: [UNRECOGNIZED DRUG - OTHER] BOTH EYES ×2 (08:08→21:30)
[2024-07-23] MEDS: TEARS BOTH EYES ×2 (08:08→21:30)
[2024-07-23] MEDS: FLAX GT (08:09)
[2024-07-23] MEDS: FISH OIL GT (08:09)
[2024-07-23] MEDS: DEXLANSOPRAZOLE 30 MG GT (08:09)
[2024-07-23] MEDS: SENNOSIDES 8.6 MG TABLET GT ×2 (08:09→21:30)
[2024-07-23] MEDS: MULTIVIT-MIN/IRON FUM/FOLIC AC 1 EACH TABLET GT (08:09)
[2024-07-23] MEDS: [UNRECOGNIZED DRUG - OTHER] GT (08:09)
[2024-07-23] MEDS: LOSARTAN 25 MG TABLET GT (08:09)
[2024-07-23] MEDS: BORAGE GT (08:09)
[2024-07-24] VITALS (10 sets, daily range): BP systolic 96–133; BP diastolic 58–79; PULSE 61–92; RESP 18–20; TEMP 36.4–36.7; O2SAT 96–98
[2024-07-24] MEDS: PROPRANOLOL 10 MG TABLET 20 MG GT ×3 (06:05→21:23)
[2024-07-24] MEDS: FLAX GT (08:46)
[2024-07-24] MEDS: LOSARTAN 25 MG TABLET GT (08:46)
[2024-07-24] MEDS: FISH OIL GT (08:46)
[2024-07-24] MEDS: DEXLANSOPRAZOLE 30 MG GT (08:46)
[2024-07-24] MEDS: [UNRECOGNIZED DRUG - OTHER] GT (08:46)
[2024-07-24] MEDS: BORAGE GT (08:46)
[2024-07-24] MEDS: [UNRECOGNIZED DRUG - OTHER] BOTH EYES ×2 (08:46→21:23)
[2024-07-24] MEDS: TEARS BOTH EYES ×2 (08:46→21:23)
[2024-07-24] MEDS: SENNOSIDES 8.6 MG TABLET GT ×2 (08:47→21:23)
[2024-07-24] MEDS: MULTIVIT-MIN/IRON FUM/FOLIC AC 1 EACH TABLET GT (08:47)
[2024-07-25] VITALS (11 sets, daily range): BP systolic 92–131; BP diastolic 60–81; PULSE 56–76; RESP 18–20; TEMP 36.2–36.7; O2SAT 95–99
[2024-07-25] MEDS: PROPRANOLOL 10 MG TABLET 20 MG GT ×2 (05:20→21:33)
[2024-07-25] MEDS: LOSARTAN 25 MG TABLET GT (08:39)
[2024-07-25] MEDS: FISH OIL GT (08:39)
[2024-07-25] MEDS: TEARS BOTH EYES ×2 (08:39→20:24)
[2024-07-25] MEDS: DEXLANSOPRAZOLE 30 MG GT (08:39)
[2024-07-25] MEDS: [UNRECOGNIZED DRUG - OTHER] BOTH EYES ×2 (08:39→20:24)
[2024-07-25] MEDS: [UNRECOGNIZED DRUG - OTHER] GT (08:39)
[2024-07-25] MEDS: BORAGE GT (08:39)
[2024-07-25] MEDS: FLAX GT (08:39)
[2024-07-25] MEDS: SENNOSIDES 8.6 MG TABLET GT ×2 (08:40→20:24)
[2024-07-25] MEDS: ACETAMINOPHEN 325 MG TABLET 650 MG GT (08:40)
[2024-07-25] MEDS: MULTIVIT-MIN/IRON FUM/FOLIC AC 1 EACH TABLET GT (08:40)
--- NOTE | 2024-07-25 12:55 | PD.SAPROG ---
Progress Note - SubAcute DIAGNOSIS (1) Traumatic brain injury: Status: Chronic (2) Anoxic brain damage, not elsewhere classified: Status: Chronic (3) Tracheostomy status: Status: Chronic (4) Gastrostomy status: Status: Chronic (5) Chronic respiratory failure: Status: Chronic SUBJECTIVE Fever:: none GI:: none Shortness of Breath:: none GI:: no complaints Pain:: none OBJECTIVE Most recent vital signs: Last Vital Signs Temp 97.5 F 07/26/24 05:48 Pulse 58 L 07/26/24 08:58 Resp 18 07/26/24 05:48 BP 111/68 07/26/24 08:58 Pulse Ox 99 07/26/24 05:48 O2 Del Method Blow-by 07/26/24 05:48 O2 Flow Rate 8 07/25/24 19:33 FiO2 35 07/25/24 19:33 Neurological:: awake Speech:: none Answers questions:: sometimes (Sometimes opens eyes to command.) Respiratory:: lungs clear Cardiovascular: RRR Abdomen: soft and nontender Extremities:: deformities Decubitus:: none Tracheostomy:: to blow by Feeding per:: G tube Complaints:: none ASSESSMENT & PLAN Assessment: Stable status. No improvement in cognitive function. Diagnosis and treatment reviewed. Prognosis remains poor. No evident pain . Plan: Current treatment continued as ongoing
[2024-07-26] VITALS (9 sets, daily range): BP systolic 99–111; BP diastolic 63–69; PULSE 53–71; RESP 18; TEMP 36.4–36.6; O2SAT 96–99
[2024-07-26] MEDS: TEARS BOTH EYES ×2 (08:56→20:19)
[2024-07-26] MEDS: [UNRECOGNIZED DRUG - OTHER] BOTH EYES ×2 (08:56→20:19)
[2024-07-26] MEDS: FLAX GT (08:58)
[2024-07-26] MEDS: [UNRECOGNIZED DRUG - OTHER] GT (08:58)
[2024-07-26] MEDS: BORAGE GT (08:58)
[2024-07-26] MEDS: FISH OIL GT (08:58)
[2024-07-26] MEDS: LOSARTAN 25 MG TABLET GT (08:58)
[2024-07-26] MEDS: DEXLANSOPRAZOLE 30 MG GT (08:58)
[2024-07-26] MEDS: MULTIVIT-MIN/IRON FUM/FOLIC AC 1 EACH TABLET GT (08:59)
[2024-07-26] MEDS: SENNOSIDES 8.6 MG TABLET GT ×2 (08:59→20:20)
[2024-07-26] MEDS: PROPRANOLOL 10 MG TABLET 20 MG GT (13:12)
[2024-07-27] VITALS (10 sets, daily range): BP systolic 90–112; BP diastolic 58–69; PULSE 54–69; RESP 17–18; TEMP 36.1–36.8; O2SAT 97–99
[2024-07-27] MEDS: PROPRANOLOL 10 MG TABLET 20 MG GT ×2 (05:24→21:14)
[2024-07-27] MEDS: MULTIVIT-MIN/IRON FUM/FOLIC AC 1 EACH TABLET GT (09:00)
[2024-07-27] MEDS: DEXLANSOPRAZOLE 30 MG GT (09:00)
[2024-07-27] MEDS: BORAGE GT (09:00)
[2024-07-27] MEDS: FLAX GT (09:00)
[2024-07-27] MEDS: SENNOSIDES 8.6 MG TABLET GT ×2 (09:00→20:17)
[2024-07-27] MEDS: FISH OIL GT (09:00)
[2024-07-27] MEDS: [UNRECOGNIZED DRUG - OTHER] BOTH EYES ×2 (09:00→20:17)
[2024-07-27] MEDS: [UNRECOGNIZED DRUG - OTHER] GT (09:00)
[2024-07-27] MEDS: TEARS BOTH EYES ×2 (09:00→20:17)
[2024-07-27] MEDS: ACETAMINOPHEN 325 MG TABLET 650 MG GT (10:13)
[2024-07-28] VITALS (11 sets, daily range): BP systolic 98–110; BP diastolic 62–76; PULSE 58–69; RESP 18–20; TEMP 36.2–36.6; O2SAT 95–99
[2024-07-28] MEDS: PROPRANOLOL 10 MG TABLET 20 MG GT ×2 (05:23→21:12)
[2024-07-28] MEDS: SENNOSIDES 8.6 MG TABLET GT ×2 (08:00→20:19)
[2024-07-28] MEDS: FISH OIL GT (08:00)
[2024-07-28] MEDS: DEXLANSOPRAZOLE 30 MG GT (08:00)
[2024-07-28] MEDS: MULTIVIT-MIN/IRON FUM/FOLIC AC 1 EACH TABLET GT (08:00)
[2024-07-28] MEDS: BORAGE GT (08:00)
[2024-07-28] MEDS: [UNRECOGNIZED DRUG - OTHER] GT (08:00)
[2024-07-28] MEDS: TEARS BOTH EYES ×2 (08:00→20:19)
[2024-07-28] MEDS: [UNRECOGNIZED DRUG - OTHER] BOTH EYES ×2 (08:00→20:19)
[2024-07-28] MEDS: FLAX GT (08:00)
[2024-07-28] MEDS: MAGNESIUM HYDROXIDE 30 ML ORAL SUSP ML GT (20:20)
[2024-07-29] VITALS (10 sets, daily range): BP systolic 95–110; BP diastolic 59–71; PULSE 60–77; RESP 16–20; TEMP 36.2–36.9; O2SAT 92–98
[2024-07-29] MEDS: [UNRECOGNIZED DRUG - OTHER] BOTH EYES ×2 (08:18→20:46)
[2024-07-29] MEDS: TEARS BOTH EYES ×2 (08:18→20:46)
[2024-07-29] MEDS: [UNRECOGNIZED DRUG - OTHER] GT (08:19)
[2024-07-29] MEDS: DEXLANSOPRAZOLE 30 MG GT (08:19)
[2024-07-29] MEDS: FLAX GT (08:19)
[2024-07-29] MEDS: BORAGE GT (08:19)
[2024-07-29] MEDS: LOSARTAN 25 MG TABLET GT (08:19)
[2024-07-29] MEDS: FISH OIL GT (08:19)
[2024-07-29] MEDS: MULTIVIT-MIN/IRON FUM/FOLIC AC 1 EACH TABLET GT (08:20)
[2024-07-29] MEDS: SENNOSIDES 8.6 MG TABLET GT ×2 (08:20→20:46)
[2024-07-29] MEDS: PROPRANOLOL 10 MG TABLET 20 MG GT ×2 (14:00→21:09)
--- NOTE | 2024-07-29 22:45 | PD.SAPROG ---
Progress Note - SubAcute DIAGNOSIS (1) Traumatic brain injury: Status: Chronic (2) Anoxic brain damage, not elsewhere classified: Status: Chronic (3) Tracheostomy status: Status: Chronic (4) Gastrostomy status: Status: Chronic (5) Chronic respiratory failure: Status: Chronic SUBJECTIVE Fever:: none GI:: none Shortness of Breath:: none GI:: no complaints Pain:: none OBJECTIVE Most recent vital signs: Last Vital Signs Temp 98.4 F 07/29/24 18:00 Pulse 62 07/29/24 21:09 Resp 18 07/29/24 18:00 BP 102/71 07/29/24 21:09 Pulse Ox 93 L 07/29/24 18:00 O2 Del Method Blow-by 07/29/24 18:00 O2 Flow Rate 8 07/29/24 06:37 FiO2 35 07/29/24 06:37 Neurological:: awake Speech:: none Answers questions:: sometimes (Sometimes opens eyes to command.) Respiratory:: lungs clear Cardiovascular: RRR Abdomen: soft and nontender Extremities:: deformities Decubitus:: none Tracheostomy:: to blow by Feeding per:: G tube Complaints:: none ASSESSMENT & PLAN Assessment: Stable status. No improvement in cognitive function. Diagnosis and treatment reviewed. Prognosis remains poor. No evident pain . Plan: Current treatment continued as ongoing
[2024-07-30] VITALS (10 sets, daily range): BP systolic 96–131; BP diastolic 64–75; PULSE 56–72; RESP 16–20; TEMP 35.8–37; O2SAT 93–94
[2024-07-30] MEDS: PROPRANOLOL 10 MG TABLET 20 MG GT ×3 (05:05→21:00)
[2024-07-30] MEDS: [UNRECOGNIZED DRUG - OTHER] BOTH EYES ×2 (09:11→20:59)
[2024-07-30] MEDS: DEXLANSOPRAZOLE 30 MG GT (09:11)
[2024-07-30] MEDS: TEARS BOTH EYES ×2 (09:11→20:59)
[2024-07-30] MEDS: BORAGE GT (09:12)
[2024-07-30] MEDS: FISH OIL GT (09:12)
[2024-07-30] MEDS: [UNRECOGNIZED DRUG - OTHER] GT (09:12)
[2024-07-30] MEDS: FLAX GT (09:12)
[2024-07-30] MEDS: SENNOSIDES 8.6 MG TABLET GT ×2 (09:13→20:59)
[2024-07-30] MEDS: MULTIVIT-MIN/IRON FUM/FOLIC AC 1 EACH TABLET GT (09:13)
[2024-07-31] VITALS (10 sets, daily range): BP systolic 93–123; BP diastolic 60–75; PULSE 56–80; RESP 17–18; TEMP 36.4–36.6; O2SAT 95–98
[2024-07-31] MEDS: [UNRECOGNIZED DRUG - OTHER] BOTH EYES ×2 (08:09→20:57)
[2024-07-31] MEDS: TEARS BOTH EYES ×2 (08:09→20:57)
[2024-07-31] MEDS: SENNOSIDES 8.6 MG TABLET GT ×2 (08:20→20:57)
[2024-07-31] MEDS: [UNRECOGNIZED DRUG - OTHER] GT (08:20)
[2024-07-31] MEDS: FLAX GT (08:20)
[2024-07-31] MEDS: DEXLANSOPRAZOLE 30 MG GT (08:20)
[2024-07-31] MEDS: BORAGE GT (08:20)
[2024-07-31] MEDS: MULTIVIT-MIN/IRON FUM/FOLIC AC 1 EACH TABLET GT (08:20)
[2024-07-31] MEDS: FISH OIL GT (08:20)
--- NOTE | 2024-07-31 15:27 | PC.SS ---
Room visit: Resident is laying in bed with head of the bed elevated with call light properly placed with no signs of distress. Resident remains on blow by with trach in place and GT for medication and nutrition. He will remain in current care as he has no changes in care or condition. This SSD will continue to make contact with resident and monitor for changes in mood and behavior.
[2024-07-31] MEDS: PROPRANOLOL 10 MG TABLET 20 MG GT (20:59)
[2024-08-01] VITALS (11 sets, daily range): BP systolic 100–113; BP diastolic 62–74; PULSE 55–75; RESP 16–18; TEMP 36.4–36.8; O2SAT 97–99
[2024-08-01] MEDS: PROPRANOLOL 10 MG TABLET 20 MG GT ×3 (05:05→21:25)
[2024-08-01] MEDS: TEARS BOTH EYES ×2 (08:06→21:24)
[2024-08-01] MEDS: [UNRECOGNIZED DRUG - OTHER] BOTH EYES ×2 (08:06→21:24)
[2024-08-01] MEDS: MULTIVIT-MIN/IRON FUM/FOLIC AC 1 EACH TABLET GT (08:07)
[2024-08-01] MEDS: SENNOSIDES 8.6 MG TABLET GT ×2 (08:07→21:24)
[2024-08-01] MEDS: DEXLANSOPRAZOLE 30 MG GT (08:08)
[2024-08-01] MEDS: FLAX GT (08:08)
[2024-08-01] MEDS: [UNRECOGNIZED DRUG - OTHER] GT (08:08)
[2024-08-01] MEDS: BORAGE GT (08:08)
[2024-08-01] MEDS: FISH OIL GT (08:08)
[2024-08-01] MEDS: MAGNESIUM HYDROXIDE 30 ML ORAL SUSP ML GT (21:55)
[2024-08-02] VITALS (9 sets, daily range): BP systolic 101–149; BP diastolic 60–82; PULSE 59–81; RESP 17–19; TEMP 36.7–37.1; O2SAT 94–99
[2024-08-02] MEDS: PROPRANOLOL 10 MG TABLET 20 MG GT ×3 (05:04→21:18)
[2024-08-02] MEDS: TEARS BOTH EYES ×2 (08:07→20:09)
[2024-08-02] MEDS: [UNRECOGNIZED DRUG - OTHER] BOTH EYES ×2 (08:07→20:09)
[2024-08-02] MEDS: SENNOSIDES 8.6 MG TABLET GT ×2 (08:08→20:10)
[2024-08-02] MEDS: MULTIVIT-MIN/IRON FUM/FOLIC AC 1 EACH TABLET GT (08:09)
[2024-08-02] MEDS: LOSARTAN 25 MG TABLET GT (08:09)
[2024-08-02] MEDS: FLAX GT (08:09)
[2024-08-02] MEDS: FISH OIL GT (08:09)
[2024-08-02] MEDS: [UNRECOGNIZED DRUG - OTHER] GT (08:09)
[2024-08-02] MEDS: DEXLANSOPRAZOLE 30 MG GT (08:09)
[2024-08-02] MEDS: BORAGE GT (08:09)
--- NOTE | 2024-08-02 16:57 | PD.SAPROG ---
Progress Note - SubAcute DIAGNOSIS (1) Traumatic brain injury: Status: Chronic (2) Anoxic brain damage, not elsewhere classified: Status: Chronic (3) Tracheostomy status: Status: Chronic (4) Gastrostomy status: Status: Chronic (5) Chronic respiratory failure: Status: Chronic SUBJECTIVE Fever:: none GI:: none Shortness of Breath:: none GI:: no complaints Pain:: none OBJECTIVE Most recent vital signs: Last Vital Signs Temp 98.3 F 08/02/24 12:00 Pulse 61 08/02/24 13:46 Resp 18 08/02/24 12:00 BP 103/64 08/02/24 13:46 Pulse Ox 98 08/02/24 08:06 O2 Del Method Blow-by 08/02/24 05:52 O2 Flow Rate 8 08/02/24 08:06 FiO2 35 08/02/24 08:06 Neurological:: awake Speech:: none Answers questions:: sometimes (Sometimes opens eyes to command.) Respiratory:: lungs clear Cardiovascular: RRR Abdomen: soft and nontender Extremities:: deformities Decubitus:: none Tracheostomy:: to blow by Feeding per:: G tube Complaints:: none ASSESSMENT & PLAN Assessment: Stable status. No improvement in cognitive function. Diagnosis and treatment reviewed. Prognosis remains poor. No evident pain . Plan: Current treatment continued as ongoing
[2024-08-03] VITALS (10 sets, daily range): BP systolic 95–131; BP diastolic 63–83; PULSE 57–75; RESP 16–19; TEMP 36.1–36.6; O2SAT 96–97
[2024-08-03] MEDS: PROPRANOLOL 10 MG TABLET 20 MG GT ×3 (05:17→21:18)
[2024-08-03] MEDS: [UNRECOGNIZED DRUG - OTHER] BOTH EYES ×2 (09:17→20:20)
[2024-08-03] MEDS: DEXLANSOPRAZOLE 30 MG GT (09:17)
[2024-08-03] MEDS: TEARS BOTH EYES ×2 (09:17→20:20)
[2024-08-03] MEDS: MULTIVIT-MIN/IRON FUM/FOLIC AC 1 EACH TABLET GT (09:18)
[2024-08-03] MEDS: FISH OIL GT (09:18)
[2024-08-03] MEDS: [UNRECOGNIZED DRUG - OTHER] GT (09:18)
[2024-08-03] MEDS: LOSARTAN 25 MG TABLET GT (09:18)
[2024-08-03] MEDS: FLAX GT (09:18)
[2024-08-03] MEDS: SENNOSIDES 8.6 MG TABLET GT ×2 (09:18→20:20)
[2024-08-03] MEDS: BORAGE GT (09:18)
--- NOTE | 2024-08-03 16:25 | PC.SS ---
Resident seen by Senior Electrical Design Engineer Dr. Vallejo for annual optometry consultation. Resident tolerated treatment well, no new orders or recommendations, resident will continue current care.
[2024-08-04] VITALS (10 sets, daily range): BP systolic 101–108; BP diastolic 60–88; PULSE 58–78; RESP 18–21; TEMP 36.1–36.8; O2SAT 93–99
[2024-08-04] MEDS: PROPRANOLOL 10 MG TABLET 20 MG GT ×2 (05:40→23:20)
[2024-08-04] MEDS: [UNRECOGNIZED DRUG - OTHER] BOTH EYES ×2 (08:06→20:45)
[2024-08-04] MEDS: TEARS BOTH EYES ×2 (08:06→20:45)
[2024-08-04] MEDS: FISH OIL GT (08:08)
[2024-08-04] MEDS: BORAGE GT (08:08)
[2024-08-04] MEDS: SENNOSIDES 8.6 MG TABLET GT ×2 (08:08→20:45)
[2024-08-04] MEDS: FLAX GT (08:08)
[2024-08-04] MEDS: DEXLANSOPRAZOLE 30 MG GT (08:08)
[2024-08-04] MEDS: [UNRECOGNIZED DRUG - OTHER] GT (08:08)
[2024-08-04] MEDS: MULTIVIT-MIN/IRON FUM/FOLIC AC 1 EACH TABLET GT (08:08)
[2024-08-05] VITALS (9 sets, daily range): BP systolic 102–131; BP diastolic 63–76; PULSE 57–62; RESP 18–20; TEMP 36.4–36.5; O2SAT 92–98
[2024-08-05] MEDS: [UNRECOGNIZED DRUG - OTHER] BOTH EYES ×2 (08:58→21:04)
[2024-08-05] MEDS: TEARS BOTH EYES ×2 (08:58→21:04)
[2024-08-05] MEDS: LOSARTAN 25 MG TABLET GT (08:59)
[2024-08-05] MEDS: BORAGE GT (08:59)
[2024-08-05] MEDS: FISH OIL GT (08:59)
[2024-08-05] MEDS: DEXLANSOPRAZOLE 30 MG GT (08:59)
[2024-08-05] MEDS: FLAX GT (08:59)
[2024-08-05] MEDS: [UNRECOGNIZED DRUG - OTHER] GT (08:59)
[2024-08-05] MEDS: MULTIVIT-MIN/IRON FUM/FOLIC AC 1 EACH TABLET GT (09:00)
[2024-08-05] MEDS: SENNOSIDES 8.6 MG TABLET GT ×2 (09:01→21:04)
[2024-08-05] MEDS: PROPRANOLOL 10 MG TABLET 20 MG GT ×2 (14:00→21:04)
[2024-08-06] VITALS (8 sets, daily range): BP systolic 100–110; BP diastolic 64–74; PULSE 56–70; RESP 18; TEMP 36.1–36.3; O2SAT 95–97
[2024-08-06] MEDS: DEXLANSOPRAZOLE 30 MG GT (08:10)
[2024-08-06] MEDS: MULTIVIT-MIN/IRON FUM/FOLIC AC 1 EACH TABLET GT (08:10)
[2024-08-06] MEDS: [UNRECOGNIZED DRUG - OTHER] GT (08:10)
[2024-08-06] MEDS: SENNOSIDES 8.6 MG TABLET GT ×2 (08:10→20:36)
[2024-08-06] MEDS: [UNRECOGNIZED DRUG - OTHER] BOTH EYES ×2 (08:10→20:36)
[2024-08-06] MEDS: MAGNESIUM HYDROXIDE 30 ML ORAL SUSP ML GT (08:10)
[2024-08-06] MEDS: BORAGE GT (08:10)
[2024-08-06] MEDS: TEARS BOTH EYES ×2 (08:10→20:36)
[2024-08-06] MEDS: FLAX GT (08:10)
[2024-08-06] MEDS: FISH OIL GT (08:10)
[2024-08-06] MEDS: PROPRANOLOL 10 MG TABLET 20 MG GT ×2 (13:23→22:00)
--- NOTE | 2024-08-06 17:55 | PD.SAPROG ---
Progress Note - SubAcute DIAGNOSIS (1) Traumatic brain injury: Status: Chronic (2) Anoxic brain damage, not elsewhere classified: Status: Chronic (3) Tracheostomy status: Status: Chronic (4) Gastrostomy status: Status: Chronic (5) Chronic respiratory failure: Status: Chronic SUBJECTIVE Fever:: none GI:: none Shortness of Breath:: none GI:: no complaints Pain:: none OBJECTIVE Most recent vital signs: Last Vital Signs Temp 97.0 F 08/06/24 06:00 Pulse 70 08/06/24 13:23 Resp 18 08/06/24 06:30 BP 110/68 08/06/24 13:23 Pulse Ox 96 08/06/24 06:30 O2 Del Method Blow-by 08/06/24 06:00 O2 Flow Rate 8 08/06/24 06:30 FiO2 35 08/06/24 06:30 Neurological:: awake Speech:: none Answers questions:: sometimes (Sometimes opens eyes to command.) Respiratory:: lungs clear Cardiovascular: RRR Abdomen: soft and nontender Extremities:: deformities Decubitus:: none Tracheostomy:: to blow by Feeding per:: G tube Complaints:: none ASSESSMENT & PLAN Assessment: Stable status. No improvement in cognitive function. Diagnosis and treatment reviewed. Prognosis remains poor. No evident pain . Plan: Current treatment continued as ongoing
[2024-08-07] VITALS (9 sets, daily range): BP systolic 94–110; BP diastolic 57–70; PULSE 51–62; RESP 17–18; TEMP 36.3–36.7; O2SAT 95–97
[2024-08-07] MEDS: MULTIVIT-MIN/IRON FUM/FOLIC AC 1 EACH TABLET GT (09:21)
[2024-08-07] MEDS: FLAX GT (09:21)
[2024-08-07] MEDS: FISH OIL GT (09:21)
[2024-08-07] MEDS: BORAGE GT (09:21)
[2024-08-07] MEDS: TEARS BOTH EYES (09:21)
[2024-08-07] MEDS: DEXLANSOPRAZOLE 30 MG GT (09:21)
[2024-08-07] MEDS: [UNRECOGNIZED DRUG - OTHER] GT (09:21)
[2024-08-07] MEDS: LOSARTAN 25 MG TABLET GT (09:21)
[2024-08-07] MEDS: [UNRECOGNIZED DRUG - OTHER] BOTH EYES (09:21)
[2024-08-07] MEDS: SENNOSIDES 8.6 MG TABLET GT ×2 (09:22→20:15)
[2024-08-07] MEDS: ACETAMINOPHEN 325 MG TABLET 650 MG GT (09:22)
[2024-08-07] MEDS: DEX/HYPRO/GLY ARTIFICAL TEARS 225 DROP/15 ML BTL BOTH EYES (20:13)
[2024-08-08] VITALS (10 sets, daily range): BP systolic 92–112; BP diastolic 58–68; PULSE 53–73; RESP 17–20; TEMP 36.3–36.6; O2SAT 96–99
[2024-08-08] MEDS: PROPRANOLOL 20 MG TABLET GT ×2 (05:19→21:26)
[2024-08-08] MEDS: DEX/HYPRO/GLY ARTIFICAL TEARS 225 DROP/15 ML BTL BOTH EYES ×2 (08:36→20:11)
[2024-08-08] MEDS: DEXLANSOPRAZOLE 30 MG PO (08:37)
[2024-08-08] MEDS: FISH OIL 1200 MG GT (08:37)
[2024-08-08] MEDS: MULTIVITAMIN W MINERALS 1 EACH TABLET GT (08:38)
[2024-08-08] MEDS: SENNOSIDES 8.6 MG TABLET GT ×2 (08:39→20:12)
[2024-08-08] MEDS: MAGNESIUM HYDROXIDE 30 ML ORAL SUSP ML GT (21:40)
[2024-08-09] VITALS (11 sets, daily range): BP systolic 98–115; BP diastolic 55–74; PULSE 55–74; RESP 16–18; TEMP 36.3–37.1; O2SAT 96–99
[2024-08-09] MEDS: PROPRANOLOL 20 MG TABLET GT ×2 (05:11→21:00)
[2024-08-09] MEDS: FISH OIL 1200 MG GT (09:16)
[2024-08-09] MEDS: DEXLANSOPRAZOLE 30 MG PO (09:16)
[2024-08-09] MEDS: SENNOSIDES 8.6 MG TABLET GT ×2 (09:19→20:39)
[2024-08-09] MEDS: MULTIVITAMIN W MINERALS 1 EACH TABLET GT (09:19)
[2024-08-09] MEDS: DEX/HYPRO/GLY ARTIFICAL TEARS 225 DROP/15 ML BTL BOTH EYES ×2 (09:25→20:39)
[2024-08-10] VITALS (10 sets, daily range): BP systolic 90–138; BP diastolic 54–71; PULSE 55–76; RESP 16–20; TEMP 36.3–36.7; O2SAT 91–99
[2024-08-10] MEDS: PROPRANOLOL 20 MG TABLET GT ×2 (05:03→21:11)
[2024-08-10] MEDS: FISH OIL 1200 MG GT (08:56)
[2024-08-10] MEDS: DEXLANSOPRAZOLE 30 MG PO (08:56)
[2024-08-10] MEDS: DEX/HYPRO/GLY ARTIFICAL TEARS 225 DROP/15 ML BTL BOTH EYES ×2 (08:56→20:29)
[2024-08-10] MEDS: SENNOSIDES 8.6 MG TABLET GT ×2 (08:57→20:29)
[2024-08-10] MEDS: MULTIVITAMIN W MINERALS 1 EACH TABLET GT (08:57)
--- NOTE | 2024-08-10 22:00 | PD.SAPROG ---
Progress Note - SubAcute DIAGNOSIS (1) Traumatic brain injury: Status: Chronic (2) Anoxic brain damage, not elsewhere classified: Status: Chronic (3) Tracheostomy status: Status: Chronic (4) Gastrostomy status: Status: Chronic (5) Chronic respiratory failure: Status: Chronic SUBJECTIVE Fever:: none GI:: none Shortness of Breath:: none GI:: no complaints Pain:: none OBJECTIVE Most recent vital signs: Last Vital Signs Temp 98.1 F 08/10/24 18:00 Pulse 76 08/10/24 21:11 Resp 20 08/10/24 18:00 BP 103/67 08/10/24 21:11 Pulse Ox 91 L 08/10/24 05:59 O2 Del Method Blow-by 08/10/24 05:59 O2 Flow Rate 10 08/10/24 05:59 FiO2 35 08/10/24 05:59 Neurological:: awake Speech:: none Answers questions:: sometimes (Sometimes opens eyes to command.) Respiratory:: lungs clear Cardiovascular: RRR Abdomen: soft and nontender Extremities:: deformities Decubitus:: none Tracheostomy:: to blow by Feeding per:: G tube Complaints:: none ASSESSMENT & PLAN Assessment: Stable status. No improvement in cognitive function. Diagnosis and treatment reviewed. Prognosis remains poor. No evident pain . Plan: Current treatment continued as ongoing
[2024-08-11] VITALS (10 sets, daily range): BP systolic 92–108; BP diastolic 61–69; PULSE 55–83; RESP 18–21; TEMP 36.3–36.7; O2SAT 95–98
[2024-08-11] MEDS: SENNOSIDES 8.6 MG TABLET GT ×2 (08:13→20:20)
[2024-08-11] MEDS: MULTIVITAMIN W MINERALS 1 EACH TABLET GT (08:14)
[2024-08-11] MEDS: DEX/HYPRO/GLY ARTIFICAL TEARS 225 DROP/15 ML BTL BOTH EYES ×2 (08:14→20:20)
[2024-08-11] MEDS: FISH OIL 1200 MG GT (08:14)
[2024-08-11] MEDS: DEXLANSOPRAZOLE 30 MG PO (08:14)
[2024-08-12] VITALS (10 sets, daily range): BP systolic 93–106; BP diastolic 59–76; PULSE 55–73; RESP 16–19; TEMP 36–36.8; O2SAT 96–97
[2024-08-12] MEDS: DEXLANSOPRAZOLE 30 MG PO (08:13)
[2024-08-12] MEDS: DEX/HYPRO/GLY ARTIFICAL TEARS 225 DROP/15 ML BTL BOTH EYES ×2 (08:13→20:07)
[2024-08-12] MEDS: FISH OIL 1200 MG GT (08:13)
[2024-08-12] MEDS: MULTIVITAMIN W MINERALS 1 EACH TABLET GT (08:14)
[2024-08-12] MEDS: SENNOSIDES 8.6 MG TABLET GT ×2 (08:14→20:08)
--- NOTE | 2024-08-12 14:05 | PD.SAPROG ---
Progress Note - SubAcute DIAGNOSIS (1) Traumatic brain injury: Status: Chronic (2) Anoxic brain damage, not elsewhere classified: Status: Chronic (3) Tracheostomy status: Status: Chronic (4) Gastrostomy status: Status: Chronic (5) Chronic respiratory failure: Status: Chronic SUBJECTIVE Fever:: none GI:: none Shortness of Breath:: none GI:: no complaints Pain:: none OBJECTIVE Most recent vital signs: Last Vital Signs Temp 97.7 F 08/16/24 11:22 Pulse 60 08/16/24 13:00 Resp 20 08/16/24 11:22 BP 105/62 08/16/24 13:00 Pulse Ox 98 08/16/24 07:22 O2 Del Method Blow-by 08/16/24 06:00 O2 Flow Rate 10 08/16/24 07:22 FiO2 35 08/16/24 07:22 Neurological:: awake Speech:: none Answers questions:: sometimes (Sometimes opens eyes to command.) Respiratory:: lungs clear Cardiovascular: RRR Abdomen: soft and nontender Extremities:: deformities Decubitus:: none Tracheostomy:: to blow by Feeding per:: G tube Complaints:: none ASSESSMENT & PLAN Assessment: Stable status. No improvement in cognitive function. Diagnosis and treatment reviewed. Prognosis remains poor. No evident pain . Plan: Current treatment continued as ongoing
[2024-08-12] MEDS: PROPRANOLOL 20 MG TABLET GT (21:33)
[2024-08-13] VITALS (10 sets, daily range): BP systolic 100–147; BP diastolic 63–80; PULSE 55–77; RESP 16–23; TEMP 36.1–36.5; O2SAT 96–98
[2024-08-13] MEDS: DEX/HYPRO/GLY ARTIFICAL TEARS 225 DROP/15 ML BTL BOTH EYES ×2 (08:06→20:00)
[2024-08-13] MEDS: SENNOSIDES 8.6 MG TABLET GT ×2 (08:07→20:00)
[2024-08-13] MEDS: MULTIVITAMIN W MINERALS 1 EACH TABLET GT (08:07)
[2024-08-13] MEDS: DEXLANSOPRAZOLE 30 MG PO (08:08)
[2024-08-13] MEDS: LOSARTAN 25 MG TABLET GT (08:08)
[2024-08-13] MEDS: FISH OIL 1200 MG GT (08:08)
[2024-08-13] MEDS: MAGNESIUM HYDROXIDE 30 ML ORAL SUSP ML GT (10:00)
[2024-08-13] MEDS: PROPRANOLOL 20 MG TABLET GT (13:44)
[2024-08-14] VITALS (9 sets, daily range): BP systolic 97–108; BP diastolic 59–69; PULSE 61–68; RESP 17–20; TEMP 36.6–36.9; O2SAT 93–97
[2024-08-14] MEDS: DEXLANSOPRAZOLE 30 MG PO (08:42)
[2024-08-14] MEDS: DEX/HYPRO/GLY ARTIFICAL TEARS 225 DROP/15 ML BTL BOTH EYES ×2 (08:42→20:00)
[2024-08-14] MEDS: MULTIVITAMIN W MINERALS 1 EACH TABLET GT (08:43)
[2024-08-14] MEDS: FISH OIL 1200 MG GT (08:43)
[2024-08-14] MEDS: SENNOSIDES 8.6 MG TABLET GT ×2 (08:44→20:00)
[2024-08-14 08:46] LABS: Basophils # (Auto) 0.0 Thou/mm3 (0.0-0.2); Basophils % (Auto) 0 % (0-2.5); Eosinophils # (Auto) 0.4 Thou/mm3 (0.0-0.5); Eosinophils % (Auto) 5 % (0-10); Hematocrit 40.9 % (41.0-53.0); Hemoglobin 14.0 g/dL (13.5-16.0); Immature Granulocytes Auto 0.02 Thou/mm3 (0.00-0.00); Lymphocytes # (Auto) 2.1 Thou/mm3 (1.0-4.8); Lymphocytes % (Auto) 27 % (10-50); Mean Corpuscular HGB Conc 34.2 g/dl (31.0-37.0); Mean Corpuscular Hemoglobin 31.8 pg (25.0-35.0); Mean Corpuscular Volume 93 fL (80-100); Monocytes # (Auto) 0.8 Thou/mm3 (0.0-0.8); Monocytes % (Auto) 9 % (0-12); Neutrophils # (Auto) 4.7 Thou/mm3 (1.8-7.7); Neutrophils % (Auto) 58 % (37-80); Nucleated Red Blood Cell # 0.00 Thou/mm3 (0.00-0.00); Nucleated Red Blood Cell % 0 /100 WBC (0); Platelet Count 217 Thou/mm3 (140-440); RDW Standard Deviation 42.9 fL (35.1-43.9); Red Blood Count 4.40 Miln/mm3 (4.50-5.90); White Blood Count 8.0 Thou/mm3 (3.8-10.6)
[2024-08-14 09:05] LABS: Alanine Aminotransferase 23 U/L (10-49); Albumin, Serum 3.7 gm/dL (3.5-5.0); Albumin/Globulin Ratio 1.4 (1.2-2.2); Alkaline Phosphatase 120 U/L (46-116); Anion Gap 5 (7-16); Aspartate Amino Transferase 15 U/L (0-34); BUN/Creatinine Ratio 18 Ratio (12-20); Bilirubin,Total 0.4 mg/dL (0.3-1.2); Blood Urea Nitrogen 9 mg/dL (9-23); Calcium 9.5 mg/dL (8.3-10.6); Calcium (Corrected) 9.7 mg/dL (8.5-10.1); Carbon Dioxide 27.8 mMol/L (20.0-31.0); Chloride 104 mMol/L (98-107); Creatinine (Component) 0.5 mg/dL (0.6-1.3); Estimated Creatinine Clearance 165.3 mL/min (>60); Globulin 2.6 gm/dL (2.3-3.5); Glucose 110 mg/dL (74-106); Osmolality,Calculated 273 (275-295); Potassium 4.2 mMol/L (3.4-5.1); Sodium 137 mMol/L (136-145); Total Protein 6.3 gm/dL (5.7-8.2); eGFR > 60 See Note
[2024-08-14] MEDS: PROPRANOLOL 20 MG TABLET GT ×2 (13:55→22:00)
--- NOTE | 2024-08-14 19:20 | PC.NURSE ---
Liliana remained stable during this shift no emotionally distress noted. Will continue to monitor.
[2024-08-15] VITALS (11 sets, daily range): BP systolic 107–126; BP diastolic 65–82; PULSE 56–74; RESP 17–20; TEMP 36.2–36.8; O2SAT 95–98
--- NOTE | 2024-08-15 06:40 | PC.NURSE ---
patient has been sleeping through the night. No behaviors noted. No complaints observed or reported. Will continue to monitor behavior.
[2024-08-15] MEDS: LOSARTAN 25 MG TABLET GT (08:43)
[2024-08-15] MEDS: DEX/HYPRO/GLY ARTIFICAL TEARS 225 DROP/15 ML BTL BOTH EYES ×2 (08:43→20:30)
[2024-08-15] MEDS: DEXLANSOPRAZOLE 30 MG PO (08:44)
[2024-08-15] MEDS: FISH OIL 1200 MG GT (08:44)
[2024-08-15] MEDS: MULTIVITAMIN W MINERALS 1 EACH TABLET GT (08:45)
[2024-08-15] MEDS: SENNOSIDES 8.6 MG TABLET GT ×2 (08:45→20:30)
[2024-08-15] MEDS: ACETAMINOPHEN 325 MG TABLET 650 MG GT (08:46)
[2024-08-15] MEDS: PROPRANOLOL 20 MG TABLET GT (13:23)
[2024-08-16] VITALS (10 sets, daily range): BP systolic 98–119; BP diastolic 61–71; PULSE 56–84; RESP 16–20; TEMP 36.1–36.6; O2SAT 94–99
[2024-08-16] MEDS: DEXLANSOPRAZOLE 30 MG PO (08:42)
[2024-08-16] MEDS: FISH OIL 1200 MG GT (08:42)
[2024-08-16] MEDS: LOSARTAN 25 MG TABLET GT (08:42)
[2024-08-16] MEDS: DEX/HYPRO/GLY ARTIFICAL TEARS 225 DROP/15 ML BTL BOTH EYES ×2 (08:42→20:40)
[2024-08-16] MEDS: MULTIVITAMIN W MINERALS 1 EACH TABLET GT (08:43)
[2024-08-16] MEDS: SENNOSIDES 8.6 MG TABLET GT ×2 (08:43→20:40)
[2024-08-16] MEDS: PROPRANOLOL 20 MG TABLET GT (13:00)
--- NOTE | 2024-08-16 17:46 | PC.NURSE ---
Psychosocial note, no changes this shift. Resident resting this shift, listening to TV programs. No s/s of any acute distress. Call light in reach
[2024-08-17] VITALS (9 sets, daily range): BP systolic 99–107; BP diastolic 59–69; PULSE 58–82; RESP 16–20; TEMP 36.4–36.6; O2SAT 95–98
--- NOTE | 2024-08-17 01:02 | PC.NURSE ---
Psychosocial monitoring. No changes this shift. patient is asleep with no s/s of discomfort or distress. Call light within reach. Plan of care continues to be followed and patient monitoring is ongoing.
[2024-08-17] MEDS: DEX/HYPRO/GLY ARTIFICAL TEARS 225 DROP/15 ML BTL BOTH EYES ×2 (09:04→21:06)
[2024-08-17] MEDS: FISH OIL 1200 MG GT (09:04)
[2024-08-17] MEDS: DEXLANSOPRAZOLE 30 MG PO (09:04)
[2024-08-17] MEDS: MULTIVITAMIN W MINERALS 1 EACH TABLET GT (09:06)
[2024-08-17] MEDS: SENNOSIDES 8.6 MG TABLET GT ×2 (09:06→21:06)
[2024-08-17] MEDS: MAGNESIUM HYDROXIDE 30 ML ORAL SUSP ML GT (10:58)
[2024-08-17] MEDS: PROPRANOLOL 20 MG TABLET GT ×2 (13:53→22:06)
--- NOTE | 2024-08-17 15:00 | PD.SAPROG ---
Progress Note - SubAcute DIAGNOSIS (1) Traumatic brain injury: Status: Chronic (2) Anoxic brain damage, not elsewhere classified: Status: Chronic (3) Tracheostomy status: Status: Chronic (4) Gastrostomy status: Status: Chronic (5) Chronic respiratory failure: Status: Chronic SUBJECTIVE Fever:: none GI:: none Shortness of Breath:: none GI:: no complaints Pain:: none OBJECTIVE Most recent vital signs: Last Vital Signs Temp 98.2 F 08/21/24 18:00 Pulse 56 L 08/21/24 18:00 Resp 19 08/21/24 18:00 BP 105/68 08/21/24 18:00 Pulse Ox 98 08/21/24 18:00 O2 Del Method Blow-by 08/21/24 18:00 O2 Flow Rate 10 08/21/24 18:00 FiO2 35 08/21/24 18:00 Neurological:: awake Speech:: none Answers questions:: sometimes (Sometimes opens eyes to command.) Respiratory:: lungs clear Cardiovascular: RRR Abdomen: soft and nontender Extremities:: deformities Decubitus:: none Tracheostomy:: to blow by Feeding per:: G tube Complaints:: none ASSESSMENT & PLAN Assessment: Stable status. No improvement in cognitive function. Diagnosis and treatment reviewed. Prognosis remains poor. No evident pain . Plan: Current treatment continued as ongoing
--- NOTE | 2024-08-17 18:25 | PC.NURSE ---
Psychosocial monitoring. No changes this shift. No s/s of distress noted. Call light within reach. Will continue with current plan of care.
[2024-08-18] VITALS (10 sets, daily range): BP systolic 97–128; BP diastolic 64–80; PULSE 48–74; RESP 20–71; TEMP 36.2–36.4; O2SAT 94–98
[2024-08-18] MEDS: DEX/HYPRO/GLY ARTIFICAL TEARS 225 DROP/15 ML BTL BOTH EYES ×2 (09:12→20:38)
[2024-08-18] MEDS: DEXLANSOPRAZOLE 30 MG PO (09:13)
[2024-08-18] MEDS: SENNOSIDES 8.6 MG TABLET GT ×2 (09:13→20:38)
[2024-08-18] MEDS: FISH OIL 1200 MG GT (09:13)
[2024-08-18] MEDS: LOSARTAN 25 MG TABLET GT (09:13)
[2024-08-18] MEDS: MULTIVITAMIN W MINERALS 1 EACH TABLET GT (09:13)
[2024-08-18] MEDS: PROPRANOLOL 20 MG TABLET GT ×2 (14:37→21:21)
[2024-08-19] VITALS (10 sets, daily range): BP systolic 95–107; BP diastolic 59–66; PULSE 54–74; RESP 16–20; TEMP 36.1–36.9; O2SAT 95–98
[2024-08-19] MEDS: DEXLANSOPRAZOLE 30 MG PO (08:49)
[2024-08-19] MEDS: DEX/HYPRO/GLY ARTIFICAL TEARS 225 DROP/15 ML BTL BOTH EYES ×2 (08:49→20:47)
[2024-08-19] MEDS: FISH OIL 1200 MG GT (08:49)
[2024-08-19] MEDS: MULTIVITAMIN W MINERALS 1 EACH TABLET GT (08:50)
[2024-08-19] MEDS: MAGNESIUM HYDROXIDE 30 ML ORAL SUSP ML GT (08:50)
[2024-08-19] MEDS: SENNOSIDES 8.6 MG TABLET GT ×2 (08:50→20:47)
[2024-08-19] MEDS: PROPRANOLOL 20 MG TABLET GT ×2 (14:21→21:11)
[2024-08-20] VITALS (10 sets, daily range): BP systolic 94–117; BP diastolic 56–73; PULSE 54–90; RESP 17–20; TEMP 36.3–36.4; O2SAT 97–98
[2024-08-20] MEDS: BISACODYL 10 MG SUPP.RECT PR (00:28)
[2024-08-20] MEDS: MULTIVITAMIN W MINERALS 1 EACH TABLET GT (09:13)
[2024-08-20] MEDS: DEXLANSOPRAZOLE 30 MG PO (09:13)
[2024-08-20] MEDS: SENNOSIDES 8.6 MG TABLET GT ×2 (09:13→20:28)
[2024-08-20] MEDS: LOSARTAN 25 MG TABLET GT (09:13)
[2024-08-20] MEDS: DEX/HYPRO/GLY ARTIFICAL TEARS 225 DROP/15 ML BTL BOTH EYES ×2 (09:13→20:28)
[2024-08-20] MEDS: FISH OIL 1200 MG GT (09:13)
--- NOTE | 2024-08-20 13:05 | ESHP_ITS ---
Physical exam Physical Exam Vital signs: Temp Pulse Resp BP Pulse Ox O2 Del Method O2 Flow Rate 98.2 F 57 L 18 123/72 96 Blow-by 10 09/13/24 11:49 09/13/24 14:06 09/13/24 11:49 09/13/24 14:06 09/13/24 06:00 09/13/24 04:30 09/13/24 06:00 FiO2 35 09/13/24 06:00 Narrative: Patient comfortable, awake, sometimes opens eyes to command but unable to communicate. Just oxygen saturations with the tracheostomy to a blow-by. Constitutional Comments: Vital signs stable. No fever. HEENT Exam Head: Present normocephalic Eye: Present PERRL ENT: Present mucous membranes moist Comments: Tracheostomy site clear/clean Neck Exam Comments: No lymphadenopathy thyromegaly or JVD Chest/Breast/Axilla Exam Comments: NAD Respiratory Exam Respiratory: Present chest non-tender, lungs clear, normal breath sounds and no resp distress Comments: With a tracheotomy tube to blow-by. Patient does not tolerate capping. 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 No lymphadenopathy cyanosis/edema Back/Spine/Pelvis Exam Comments: NAD Neurological Exam Comments: Mostly asleep but opens eyes to command. Occasional appropriate gesture. Lower extremity spastic contractures. Incontinent of bladder and bowel. Rehabilitation potential Diagnosis (1) Traumatic brain injury: Status: Chronic (2) Anoxic brain damage, not elsewhere classified: Status: Chronic (3) Tracheostomy status: Status: Chronic (4) Gastrostomy status: Status: Chronic (5) Chronic respiratory failure: Status: Chronic Assessment & Plan Assessment: Stable status. No improvement in cognitive function. Diagnosis and treatment reviewed. Prognosis remains poor. No evident pain issues. Plan: Current treatment continued as ongoing HPI History of Present Illness HPI: Updated H&P for year 2023 Patient continues to be a resident of [facility] for long-term care with: Chronic respiratory failure/hypoxia with history; feeding G-tube; traumatic brain injury with anoxic brain damage. Patient fully dependent for care
[2024-08-20] MEDS: PROPRANOLOL 20 MG TABLET GT ×2 (14:53→21:26)
[2024-08-20] MEDS: ACETAMINOPHEN 325 MG TABLET 650 MG GT (21:00)
[2024-08-21] VITALS (10 sets, daily range): BP systolic 97–125; BP diastolic 60–87; PULSE 51–62; RESP 18–20; TEMP 36.4–36.8; O2SAT 95–98
[2024-08-21] MEDS: PROPRANOLOL 20 MG TABLET GT ×3 (06:00→21:07)
[2024-08-21] MEDS: DEXLANSOPRAZOLE 30 MG PO (08:56)
[2024-08-21] MEDS: DEX/HYPRO/GLY ARTIFICAL TEARS 225 DROP/15 ML BTL BOTH EYES ×2 (08:56→21:04)
[2024-08-21] MEDS: FISH OIL 1200 MG GT (08:56)
[2024-08-21] MEDS: SENNOSIDES 8.6 MG TABLET GT ×2 (08:57→21:06)
[2024-08-21] MEDS: MULTIVITAMIN W MINERALS 1 EACH TABLET GT (08:57)
[2024-08-21] MEDS: ACETAMINOPHEN 325 MG TABLET 650 MG GT (20:20)
[2024-08-22] VITALS (10 sets, daily range): BP systolic 94–117; BP diastolic 50–69; PULSE 51–86; RESP 16–20; TEMP 36.1–36.6; O2SAT 97–99
[2024-08-22] MEDS: DEXLANSOPRAZOLE 30 MG PO (08:36)
[2024-08-22] MEDS: DEX/HYPRO/GLY ARTIFICAL TEARS 225 DROP/15 ML BTL BOTH EYES ×2 (08:36→20:13)
[2024-08-22] MEDS: SENNOSIDES 8.6 MG TABLET GT ×2 (08:37→20:13)
[2024-08-22] MEDS: FISH OIL 1200 MG GT (08:37)
[2024-08-22] MEDS: MULTIVITAMIN W MINERALS 1 EACH TABLET GT (08:37)
[2024-08-22] MEDS: LOSARTAN 25 MG TABLET GT (08:37)
[2024-08-22] MEDS: PROPRANOLOL 20 MG TABLET GT (20:14)
[2024-08-22] MEDS: ACETAMINOPHEN 325 MG TABLET 650 MG GT (20:15)
[2024-08-22] MEDS: MAGNESIUM HYDROXIDE 30 ML ORAL SUSP ML GT (21:17)
[2024-08-23] VITALS (9 sets, daily range): BP systolic 97–135; BP diastolic 60–86; PULSE 53–78; RESP 16–20; TEMP 36.1–36.6; O2SAT 96–98
[2024-08-23] MEDS: DEX/HYPRO/GLY ARTIFICAL TEARS 225 DROP/15 ML BTL BOTH EYES ×2 (08:06→20:23)
[2024-08-23] MEDS: DEXLANSOPRAZOLE 30 MG PO (08:06)
[2024-08-23] MEDS: FISH OIL 1200 MG GT (08:06)
[2024-08-23] MEDS: MULTIVITAMIN W MINERALS 1 EACH TABLET GT (08:08)
[2024-08-23] MEDS: SENNOSIDES 8.6 MG TABLET GT ×2 (08:08→20:23)
[2024-08-23] MEDS: ACETAMINOPHEN 325 MG TABLET 650 MG GT ×2 (08:09→20:20)
[2024-08-23] MEDS: BISACODYL 10 MG SUPP.RECT PR (13:00)
[2024-08-23] MEDS: PROPRANOLOL 20 MG TABLET GT ×2 (14:12→20:24)
[2024-08-24] VITALS (10 sets, daily range): BP systolic 95–117; BP diastolic 58–66; PULSE 53–70; RESP 18–21; TEMP 36.2–36.4; O2SAT 97–100
[2024-08-24] MEDS: DEX/HYPRO/GLY ARTIFICAL TEARS 225 DROP/15 ML BTL BOTH EYES ×2 (08:20→21:10)
[2024-08-24] MEDS: DEXLANSOPRAZOLE 30 MG PO (08:20)
[2024-08-24] MEDS: FISH OIL 1200 MG GT (08:21)
[2024-08-24] MEDS: SENNOSIDES 8.6 MG TABLET GT ×2 (08:23→21:10)
[2024-08-24] MEDS: MULTIVITAMIN W MINERALS 1 EACH TABLET GT (08:23)
[2024-08-24] MEDS: PROPRANOLOL 20 MG TABLET GT (13:19)
[2024-08-25] VITALS (8 sets, daily range): BP systolic 94–120; BP diastolic 60–68; PULSE 55–71; RESP 20; TEMP 36.4–36.6; O2SAT 95–99
[2024-08-25] MEDS: DEX/HYPRO/GLY ARTIFICAL TEARS 225 DROP/15 ML BTL BOTH EYES ×2 (09:43→20:40)
[2024-08-25] MEDS: DEXLANSOPRAZOLE 30 MG PO (09:43)
[2024-08-25] MEDS: FISH OIL 1200 MG GT (09:43)
[2024-08-25] MEDS: LOSARTAN 25 MG TABLET GT (09:43)
[2024-08-25] MEDS: MULTIVITAMIN W MINERALS 1 EACH TABLET GT (09:44)
[2024-08-25] MEDS: SENNOSIDES 8.6 MG TABLET GT ×2 (09:44→20:41)
[2024-08-25] MEDS: PROPRANOLOL 20 MG TABLET GT (13:58)
--- NOTE | 2024-08-25 14:51 | PC.SS ---
IDT Note: Resident RP Arlene Hinds attended meeting via telephone conference, resident unable to attend. IDT read report went over all care areas with Arlene, she had no questions or concerns at this time. Arlene asked if there was anything she can supply resident with, this SSD thanked her for sending new clothes for resident.
[2024-08-25] MEDS: ACETAMINOPHEN 325 MG TABLET 650 MG GT (20:40)
--- NOTE | 2024-08-25 21:41 | PD.SAPROG ---
Progress Note - SubAcute DIAGNOSIS (1) Traumatic brain injury: Status: Chronic (2) Anoxic brain damage, not elsewhere classified: Status: Chronic (3) Tracheostomy status: Status: Chronic (4) Gastrostomy status: Status: Chronic (5) Chronic respiratory failure: Status: Chronic SUBJECTIVE Fever:: none GI:: none Shortness of Breath:: none GI:: no complaints Pain:: none OBJECTIVE Most recent vital signs: Last Vital Signs Temp 97.5 F 08/25/24 06:00 Pulse 65 08/25/24 20:41 Resp 20 08/25/24 06:20 BP 94/60 08/25/24 20:41 Pulse Ox 99 08/25/24 06:20 O2 Del Method Blow-by 08/25/24 06:00 O2 Flow Rate 10 08/25/24 06:20 FiO2 35 08/25/24 06:20 Neurological:: awake Speech:: none Answers questions:: sometimes (Sometimes opens eyes to command.) Respiratory:: lungs clear Cardiovascular: RRR Abdomen: soft and nontender Extremities:: deformities Decubitus:: none Tracheostomy:: to blow by Feeding per:: G tube Complaints:: none ASSESSMENT & PLAN Assessment: Stable status. No improvement in cognitive function. Diagnosis and treatment reviewed. Prognosis remains poor. No evident pain . Plan: Current treatment continued as ongoing
[2024-08-26] VITALS (11 sets, daily range): BP systolic 94–117; BP diastolic 60–68; PULSE 52–75; RESP 16–20; TEMP 36.3–36.6; O2SAT 98–99
[2024-08-26] MEDS: PROPRANOLOL 20 MG TABLET GT (05:48)
[2024-08-26] MEDS: FISH OIL 1200 MG GT (09:41)
[2024-08-26] MEDS: DEXLANSOPRAZOLE 30 MG PO (09:41)
[2024-08-26] MEDS: DEX/HYPRO/GLY ARTIFICAL TEARS 225 DROP/15 ML BTL BOTH EYES ×2 (09:41→20:44)
[2024-08-26] MEDS: SENNOSIDES 8.6 MG TABLET GT ×2 (09:45→20:44)
[2024-08-26] MEDS: MULTIVITAMIN W MINERALS 1 EACH TABLET GT (09:45)
--- NOTE | 2024-08-26 13:14 | PC.NURSE ---
Seen by Dr Ham, no new orders made
--- NOTE | 2024-08-26 16:23 | PC.SS ---
Room visit: Resident is laying in bed with head of the bed elevated with shady light properly placed with no signs of distress. Resident is unable to make needs known as he does not have speech, his daughter Arlene is his decision maker. Resident has no changes in care or condition, remains on blow by with trach in place and GT for medications and nutrition. Resident will remain in current care and will continue to have all subacute care needs met by staff. This SSD will continue to make daily contact with resident and monitor for changes in mood and behavior.
[2024-08-26] MEDS: ACETAMINOPHEN 325 MG TABLET 650 MG GT (20:20)
[2024-08-27] VITALS (10 sets, daily range): BP systolic 97–116; BP diastolic 59–72; PULSE 50–71; RESP 16–20; TEMP 36.5–36.6; O2SAT 96–99
[2024-08-27] MEDS: MAGNESIUM HYDROXIDE 30 ML ORAL SUSP ML GT (10:10)
[2024-08-27] MEDS: DEX/HYPRO/GLY ARTIFICAL TEARS 225 DROP/15 ML BTL BOTH EYES ×2 (10:10→21:31)
[2024-08-27] MEDS: MULTIVITAMIN W MINERALS 1 EACH TABLET GT (10:11)
[2024-08-27] MEDS: FISH OIL 1200 MG GT (10:11)
[2024-08-27] MEDS: DEXLANSOPRAZOLE 30 MG PO (10:11)
[2024-08-27] MEDS: SENNOSIDES 8.6 MG TABLET GT ×2 (10:12→21:31)
[2024-08-27] MEDS: PROPRANOLOL 20 MG TABLET GT (14:05)
[2024-08-28] VITALS (10 sets, daily range): BP systolic 97–129; BP diastolic 61–71; PULSE 50–66; RESP 18–24; TEMP 36.2–36.6; O2SAT 96–99
[2024-08-28] MEDS: BISACODYL 10 MG SUPP.RECT PR (00:30)
[2024-08-28] MEDS: MULTIVITAMIN W MINERALS 1 EACH TABLET GT (09:57)
[2024-08-28] MEDS: SENNOSIDES 8.6 MG TABLET GT ×2 (09:57→21:22)
[2024-08-28] MEDS: FISH OIL 1200 MG GT (09:57)
[2024-08-28] MEDS: LOSARTAN 25 MG TABLET GT (09:57)
[2024-08-28] MEDS: DEXLANSOPRAZOLE 30 MG PO (09:57)
[2024-08-28] MEDS: DEX/HYPRO/GLY ARTIFICAL TEARS 225 DROP/15 ML BTL BOTH EYES ×2 (09:57→21:22)
[2024-08-28] MEDS: ACETAMINOPHEN 325 MG TABLET 650 MG GT (10:00)
[2024-08-28] MEDS: PROPRANOLOL 20 MG TABLET GT ×2 (13:27→21:22)
[2024-08-29] VITALS (10 sets, daily range): BP systolic 100–120; BP diastolic 67–78; PULSE 58–74; RESP 18–20; TEMP 36.3–36.6; O2SAT 94–96
[2024-08-29] MEDS: PROPRANOLOL 20 MG TABLET GT ×3 (05:30→21:02)
[2024-08-29] MEDS: DEX/HYPRO/GLY ARTIFICAL TEARS 225 DROP/15 ML BTL BOTH EYES ×2 (08:26→21:02)
[2024-08-29] MEDS: SENNOSIDES 8.6 MG TABLET GT ×2 (08:28→21:02)
[2024-08-29] MEDS: FISH OIL 1200 MG GT (08:28)
[2024-08-29] MEDS: DEXLANSOPRAZOLE 30 MG PO (08:28)
[2024-08-29] MEDS: LOSARTAN 25 MG TABLET GT (08:28)
[2024-08-29] MEDS: MULTIVITAMIN W MINERALS 1 EACH TABLET GT (08:28)
[2024-08-30] VITALS (10 sets, daily range): BP systolic 97–123; BP diastolic 59–74; PULSE 57–87; RESP 18–20; TEMP 36.1–36.4; O2SAT 96–99
[2024-08-30] MEDS: PROPRANOLOL 20 MG TABLET GT ×3 (05:39→21:21)
[2024-08-30] MEDS: DEXLANSOPRAZOLE 30 MG PO (08:24)
[2024-08-30] MEDS: FISH OIL 1200 MG GT (08:24)
[2024-08-30] MEDS: DEX/HYPRO/GLY ARTIFICAL TEARS 225 DROP/15 ML BTL BOTH EYES ×2 (08:24→21:21)
[2024-08-30] MEDS: MULTIVITAMIN W MINERALS 1 EACH TABLET GT (08:28)
[2024-08-30] MEDS: SENNOSIDES 8.6 MG TABLET GT ×2 (08:29→21:21)
--- NOTE | 2024-08-30 12:08 | PD.SAPROG ---
Progress Note - SubAcute DIAGNOSIS (1) Traumatic brain injury: Status: Chronic (2) Anoxic brain damage, not elsewhere classified: Status: Chronic (3) Tracheostomy status: Status: Chronic (4) Gastrostomy status: Status: Chronic (5) Chronic respiratory failure: Status: Chronic SUBJECTIVE Fever:: none GI:: none Shortness of Breath:: none GI:: no complaints Pain:: none OBJECTIVE Most recent vital signs: Last Vital Signs Temp 97.0 F 08/30/24 11:37 Pulse 87 08/30/24 11:37 Resp 18 08/30/24 11:37 BP 104/59 L 08/30/24 11:37 Pulse Ox 98 08/30/24 06:30 O2 Del Method Blow-by 08/29/24 17:18 O2 Flow Rate 10 08/30/24 06:30 FiO2 35 08/30/24 06:30 Neurological:: awake Speech:: none Answers questions:: sometimes (Sometimes opens eyes to command.) Respiratory:: lungs clear Cardiovascular: RRR Abdomen: soft and nontender Extremities:: deformities Decubitus:: none Tracheostomy:: to blow by Feeding per:: G tube Complaints:: none ASSESSMENT & PLAN Assessment: Stable status. No improvement in cognitive function. Diagnosis and treatment reviewed. Prognosis remains poor. No evident pain . Plan: Current treatment continued as ongoing
[2024-08-31] VITALS (10 sets, daily range): BP systolic 94–130; BP diastolic 59–88; PULSE 59–106; RESP 16–20; TEMP 36.4–36.5; O2SAT 91–95
[2024-08-31] MEDS: LOSARTAN 25 MG TABLET GT (08:38)
[2024-08-31] MEDS: DEXLANSOPRAZOLE 30 MG PO (08:38)
[2024-08-31] MEDS: DEX/HYPRO/GLY ARTIFICAL TEARS 225 DROP/15 ML BTL BOTH EYES ×2 (08:38→20:14)
[2024-08-31] MEDS: FISH OIL 1200 MG GT (08:38)
[2024-08-31] MEDS: MULTIVITAMIN W MINERALS 1 EACH TABLET GT (08:39)
[2024-08-31] MEDS: SENNOSIDES 8.6 MG TABLET GT ×2 (08:39→20:14)
[2024-08-31] MEDS: PROPRANOLOL 20 MG TABLET GT (14:04)
[2024-08-31] MEDS: ACETAMINOPHEN 325 MG TABLET 650 MG GT (20:15)
[2024-09-01] VITALS (10 sets, daily range): BP systolic 99–117; BP diastolic 60–75; PULSE 62–92; RESP 17–18; TEMP 36.3–36.8; O2SAT 93–99
[2024-09-01] MEDS: PROPRANOLOL 20 MG TABLET GT ×2 (05:37→14:28)
[2024-09-01] MEDS: DEXLANSOPRAZOLE 30 MG PO (09:48)
[2024-09-01] MEDS: MULTIVITAMIN W MINERALS 1 EACH TABLET GT (09:48)
[2024-09-01] MEDS: LOSARTAN 25 MG TABLET GT (09:48)
[2024-09-01] MEDS: DEX/HYPRO/GLY ARTIFICAL TEARS 225 DROP/15 ML BTL BOTH EYES ×2 (09:48→21:07)
[2024-09-01] MEDS: FISH OIL 1200 MG GT (09:48)
[2024-09-01] MEDS: SENNOSIDES 8.6 MG TABLET GT ×2 (09:49→21:07)
[2024-09-01] MEDS: ACETAMINOPHEN 325 MG TABLET 650 MG GT ×2 (09:49→20:30)
[2024-09-02] VITALS (10 sets, daily range): BP systolic 100–112; BP diastolic 64–74; PULSE 65–84; RESP 18–20; TEMP 36.2–36.6; O2SAT 98–99; BMI 25.3
[2024-09-02] MEDS: PROPRANOLOL 20 MG TABLET GT ×3 (05:57→21:22)
[2024-09-02] MEDS: CARBAMIDE PEROXIDE OTIC SOL 15 ML BTL 5 DROP BOTH EARS ×2 (08:37→21:22)
[2024-09-02] MEDS: DEX/HYPRO/GLY ARTIFICAL TEARS 225 DROP/15 ML BTL BOTH EYES ×2 (08:38→21:22)
[2024-09-02] MEDS: FISH OIL 1200 MG GT (08:38)
[2024-09-02] MEDS: DEXLANSOPRAZOLE 30 MG PO (08:38)
[2024-09-02] MEDS: MULTIVITAMIN W MINERALS 1 EACH TABLET GT (08:39)
[2024-09-02] MEDS: SENNOSIDES 8.6 MG TABLET GT ×2 (08:40→21:22)
[2024-09-02] MEDS: ACETAMINOPHEN 325 MG TABLET 650 MG GT (08:40)
--- NOTE | 2024-09-02 17:17 | PD.SAPROG ---
Progress Note - SubAcute DIAGNOSIS (1) Traumatic brain injury: Status: Chronic (2) Anoxic brain damage, not elsewhere classified: Status: Chronic (3) Tracheostomy status: Status: Chronic (4) Gastrostomy status: Status: Chronic (5) Chronic respiratory failure: Status: Chronic SUBJECTIVE Fever:: none GI:: none Shortness of Breath:: none GI:: no complaints Pain:: none OBJECTIVE Most recent vital signs: Last Vital Signs Temp 97.1 F 09/02/24 06:00 Pulse 71 09/02/24 13:19 Resp 18 09/02/24 06:22 BP 112/71 09/02/24 13:19 Pulse Ox 98 09/02/24 06:22 O2 Del Method Blow-by 09/02/24 06:00 O2 Flow Rate 10 09/02/24 06:22 FiO2 35 09/02/24 06:22 Neurological:: awake Speech:: none Answers questions:: sometimes (Sometimes opens eyes to command.) Respiratory:: lungs clear Cardiovascular: RRR Abdomen: soft and nontender Extremities:: deformities Decubitus:: none Tracheostomy:: to blow by Feeding per:: G tube Complaints:: none ASSESSMENT & PLAN Assessment: Stable status. No improvement in cognitive function. Diagnosis and treatment reviewed. Prognosis remains poor. No evident pain . Plan: Current treatment continued as ongoing
[2024-09-03] VITALS (10 sets, daily range): BP systolic 97–118; BP diastolic 59–71; PULSE 62–94; RESP 16–21; TEMP 36.4–36.5; O2SAT 93–98
[2024-09-03] MEDS: CARBAMIDE PEROXIDE OTIC SOL 15 ML BTL 5 DROP BOTH EARS ×2 (08:46→21:27)
[2024-09-03] MEDS: SENNOSIDES 8.6 MG TABLET GT ×2 (08:47→21:27)
[2024-09-03] MEDS: MULTIVITAMIN W MINERALS 1 EACH TABLET GT (08:47)
[2024-09-03] MEDS: DEX/HYPRO/GLY ARTIFICAL TEARS 225 DROP/15 ML BTL BOTH EYES ×2 (08:47→21:27)
[2024-09-03] MEDS: FISH OIL 1200 MG GT (08:47)
[2024-09-03] MEDS: DEXLANSOPRAZOLE 30 MG PO (08:47)
[2024-09-03] MEDS: PROPRANOLOL 20 MG TABLET GT ×2 (14:00→21:27)
[2024-09-04] VITALS (10 sets, daily range): BP systolic 104–126; BP diastolic 67–78; PULSE 65–78; RESP 18–20; TEMP 36.3–36.7; O2SAT 94–97
[2024-09-04] MEDS: PROPRANOLOL 20 MG TABLET GT ×3 (05:38→21:16)
[2024-09-04] MEDS: CARBAMIDE PEROXIDE OTIC SOL 15 ML BTL 5 DROP BOTH EARS ×2 (09:10→21:15)
[2024-09-04] MEDS: SENNOSIDES 8.6 MG TABLET GT ×2 (09:11→21:15)
[2024-09-04] MEDS: MULTIVITAMIN W MINERALS 1 EACH TABLET GT (09:11)
[2024-09-04] MEDS: DEXLANSOPRAZOLE 30 MG PO (09:11)
[2024-09-04] MEDS: LOSARTAN 25 MG TABLET GT (09:11)
[2024-09-04] MEDS: DEX/HYPRO/GLY ARTIFICAL TEARS 225 DROP/15 ML BTL BOTH EYES ×2 (09:11→21:15)
[2024-09-04] MEDS: FISH OIL 1200 MG GT (09:11)
--- NOTE | 2024-09-04 15:06 | PC.SS ---
Room visit: Resident is laying in bed with head of the bed elevated with call light properly placed with no signs of distress. Resident remains on blow by with trach in place and GT for medication and nutrition. Resident is unable to make needs known as he has absence of speech, his decision maker is his daughter Arlene Hinds. Resident will remain in current care and will continue to have all subacute care needs met by staff. This SSD will continue to make daily contact with resident and offer support and he may need.
[2024-09-05] VITALS (8 sets, daily range): BP systolic 104–111; BP diastolic 63–74; PULSE 57–80; RESP 18–20; TEMP 36.5–37.2; O2SAT 95–98
[2024-09-05] MEDS: PROPRANOLOL 20 MG TABLET GT ×3 (05:36→21:45)
[2024-09-05] MEDS: DEXLANSOPRAZOLE 30 MG PO (08:46)
[2024-09-05] MEDS: CARBAMIDE PEROXIDE OTIC SOL 15 ML BTL 5 DROP BOTH EARS ×2 (08:46→21:04)
[2024-09-05] MEDS: DEX/HYPRO/GLY ARTIFICAL TEARS 225 DROP/15 ML BTL BOTH EYES ×2 (08:46→21:05)
[2024-09-05] MEDS: FISH OIL 1200 MG GT (08:47)
[2024-09-05] MEDS: MULTIVITAMIN W MINERALS 1 EACH TABLET GT (08:48)
[2024-09-05] MEDS: SENNOSIDES 8.6 MG TABLET GT ×2 (08:48→21:05)
[2024-09-06] VITALS (9 sets, daily range): BP systolic 101–125; BP diastolic 62–79; PULSE 56–79; RESP 16–20; TEMP 36.4–36.6; O2SAT 96–99
[2024-09-06] MEDS: PROPRANOLOL 20 MG TABLET GT ×2 (05:33→21:00)
[2024-09-06] MEDS: FISH OIL 1200 MG GT (08:44)
[2024-09-06] MEDS: DEXLANSOPRAZOLE 30 MG PO (08:44)
[2024-09-06] MEDS: DEX/HYPRO/GLY ARTIFICAL TEARS 225 DROP/15 ML BTL BOTH EYES ×2 (08:44→20:55)
[2024-09-06] MEDS: SENNOSIDES 8.6 MG TABLET GT ×2 (08:45→20:55)
[2024-09-06] MEDS: MULTIVITAMIN W MINERALS 1 EACH TABLET GT (08:45)
[2024-09-06] MEDS: LOSARTAN 25 MG TABLET GT (08:45)
--- NOTE | 2024-09-06 21:53 | PD.SAPROG ---
Progress Note - SubAcute DIAGNOSIS (1) Traumatic brain injury: Status: Chronic (2) Anoxic brain damage, not elsewhere classified: Status: Chronic (3) Tracheostomy status: Status: Chronic (4) Gastrostomy status: Status: Chronic (5) Chronic respiratory failure: Status: Chronic SUBJECTIVE Fever:: none GI:: none Shortness of Breath:: none GI:: no complaints Pain:: none OBJECTIVE Most recent vital signs: Last Vital Signs Temp 97.6 F 09/06/24 18:00 Pulse 72 09/06/24 21:00 Resp 16 09/06/24 18:00 BP 111/76 09/06/24 21:00 Pulse Ox 96 09/06/24 05:33 O2 Del Method Blow-by 09/05/24 06:00 O2 Flow Rate 10 09/06/24 01:30 FiO2 35 09/06/24 01:30 Neurological:: awake Speech:: none Answers questions:: sometimes (Sometimes opens eyes to command.) Respiratory:: lungs clear Cardiovascular: RRR Abdomen: soft and nontender Extremities:: deformities Decubitus:: none Tracheostomy:: to blow by Feeding per:: G tube Complaints:: none ASSESSMENT & PLAN Assessment: Stable status. No improvement in cognitive function. Diagnosis and treatment reviewed. Prognosis remains poor. No evident pain . Plan: Current treatment continued as ongoing
[2024-09-07] VITALS (10 sets, daily range): BP systolic 90–131; BP diastolic 61–77; PULSE 62–81; RESP 18–20; TEMP 35.8–36.7; O2SAT 97–98
[2024-09-07] MEDS: PROPRANOLOL 20 MG TABLET GT ×3 (05:41→21:07)
[2024-09-07] MEDS: DEX/HYPRO/GLY ARTIFICAL TEARS 225 DROP/15 ML BTL BOTH EYES ×2 (09:27→21:07)
[2024-09-07] MEDS: SENNOSIDES 8.6 MG TABLET GT ×2 (09:28→21:07)
[2024-09-07] MEDS: FISH OIL 1200 MG GT (09:28)
[2024-09-07] MEDS: MULTIVITAMIN W MINERALS 1 EACH TABLET GT (09:28)
[2024-09-07] MEDS: DEXLANSOPRAZOLE 30 MG PO (09:28)
[2024-09-08] VITALS (10 sets, daily range): BP systolic 91–113; BP diastolic 58–74; PULSE 54–85; RESP 18–20; TEMP 36.6–36.8; O2SAT 92–100
[2024-09-08] MEDS: PROPRANOLOL 20 MG TABLET GT ×2 (05:40→21:02)
[2024-09-08] MEDS: DEXLANSOPRAZOLE 30 MG PO (08:09)
[2024-09-08] MEDS: SENNOSIDES 8.6 MG TABLET GT ×2 (08:09→21:01)
[2024-09-08] MEDS: MULTIVITAMIN W MINERALS 1 EACH TABLET GT (08:09)
[2024-09-08] MEDS: FISH OIL 1200 MG GT (08:09)
[2024-09-08] MEDS: DEX/HYPRO/GLY ARTIFICAL TEARS 225 DROP/15 ML BTL BOTH EYES ×2 (08:09→21:01)
[2024-09-08] MEDS: ACETAMINOPHEN 325 MG TABLET 650 MG GT (20:50)
[2024-09-09] VITALS (8 sets, daily range): BP systolic 91–111; BP diastolic 61–74; PULSE 52–68; RESP 18–20; TEMP 36.4–37; O2SAT 97–98
[2024-09-09] MEDS: DEX/HYPRO/GLY ARTIFICAL TEARS 225 DROP/15 ML BTL BOTH EYES ×2 (09:19→20:10)
[2024-09-09] MEDS: DEXLANSOPRAZOLE 30 MG PO (09:20)
[2024-09-09] MEDS: MULTIVITAMIN W MINERALS 1 EACH TABLET GT (09:20)
[2024-09-09] MEDS: FISH OIL 1200 MG GT (09:20)
[2024-09-09] MEDS: SENNOSIDES 8.6 MG TABLET GT ×2 (09:21→20:10)
--- NOTE | 2024-09-09 12:17 | PC.SS ---
Room visit: Resident remains on blow by with trach in place and GT for medication and nutrition. Resident has absence of speech unable to make needs known. Resident decision maker is his daughter Arlene Hinds. Resident will remain in current care and will continue to have all subacute care needs met by staff. This SSD will continue to make daily contact with resident and will offer support as he will accept.
[2024-09-09] MEDS: PROPRANOLOL 20 MG TABLET GT (13:09)
[2024-09-09] MEDS: ACETAMINOPHEN 325 MG TABLET 650 MG GT (20:10)
[2024-09-10] VITALS (9 sets, daily range): BP systolic 91–115; BP diastolic 55–78; PULSE 55–69; RESP 17–20; TEMP 36.3–36.4; O2SAT 96–98
[2024-09-10] MEDS: PROPRANOLOL 20 MG TABLET GT ×3 (05:16→21:37)
[2024-09-10] MEDS: DEXLANSOPRAZOLE 30 MG PO (08:51)
[2024-09-10] MEDS: FISH OIL 1200 MG GT (08:51)
[2024-09-10] MEDS: DEX/HYPRO/GLY ARTIFICAL TEARS 225 DROP/15 ML BTL BOTH EYES ×2 (08:51→21:37)
[2024-09-10] MEDS: LOSARTAN 25 MG TABLET GT (08:51)
[2024-09-10] MEDS: MULTIVITAMIN W MINERALS 1 EACH TABLET GT (08:51)
[2024-09-10] MEDS: SENNOSIDES 8.6 MG TABLET GT ×2 (08:52→21:37)
[2024-09-10] MEDS: MAGNESIUM HYDROXIDE 30 ML ORAL SUSP ML GT (08:52)
--- NOTE | 2024-09-10 21:28 | PD.SAPROG ---
Progress Note - SubAcute DIAGNOSIS (1) Traumatic brain injury: Status: Chronic (2) Anoxic brain damage, not elsewhere classified: Status: Chronic (3) Tracheostomy status: Status: Chronic (4) Gastrostomy status: Status: Chronic (5) Chronic respiratory failure: Status: Chronic SUBJECTIVE Fever:: none GI:: none Shortness of Breath:: none GI:: no complaints Pain:: none OBJECTIVE Most recent vital signs: Last Vital Signs Temp 97.3 F 09/10/24 17:45 Pulse 55 L 09/10/24 17:45 Resp 17 09/10/24 17:45 BP 91/55 L 09/10/24 17:45 Pulse Ox 98 09/10/24 17:45 O2 Del Method Blow-by 09/10/24 17:45 O2 Flow Rate 10 09/10/24 17:45 FiO2 35 09/10/24 17:45 Neurological:: awake Speech:: none Answers questions:: sometimes (Sometimes opens eyes to command.) Respiratory:: lungs clear Cardiovascular: RRR Abdomen: soft and nontender Extremities:: deformities Decubitus:: none Tracheostomy:: to blow by Feeding per:: G tube Complaints:: none ASSESSMENT & PLAN Assessment: Stable status. No improvement in cognitive function. Diagnosis and treatment reviewed. Prognosis remains poor. No evident pain . Plan: Current treatment continued as ongoing
[2024-09-11] VITALS (11 sets, daily range): BP systolic 104–118; BP diastolic 67–73; PULSE 50–80; RESP 16–20; TEMP 36.3–36.6; O2SAT 95–98
[2024-09-11] MEDS: BISACODYL 10 MG SUPP.RECT PR (01:48)
[2024-09-11] MEDS: DEX/HYPRO/GLY ARTIFICAL TEARS 225 DROP/15 ML BTL BOTH EYES ×2 (09:37→21:15)
[2024-09-11] MEDS: FISH OIL 1200 MG GT (09:37)
[2024-09-11] MEDS: DEXLANSOPRAZOLE 30 MG PO (09:37)
[2024-09-11] MEDS: LOSARTAN 25 MG TABLET GT (09:38)
[2024-09-11] MEDS: MULTIVITAMIN W MINERALS 1 EACH TABLET GT (09:38)
[2024-09-11] MEDS: SENNOSIDES 8.6 MG TABLET GT ×2 (09:39→21:15)
[2024-09-11] MEDS: PROPRANOLOL 20 MG TABLET GT ×2 (13:50→21:16)
[2024-09-12] VITALS (11 sets, daily range): BP systolic 96–124; BP diastolic 57–81; PULSE 52–80; RESP 18–20; TEMP 36–36.7; O2SAT 95–98
[2024-09-12] MEDS: PROPRANOLOL 20 MG TABLET GT ×3 (05:18→21:16)
[2024-09-12] MEDS: LOSARTAN 25 MG TABLET GT (08:43)
[2024-09-12] MEDS: FISH OIL 1200 MG GT (08:43)
[2024-09-12] MEDS: DEXLANSOPRAZOLE 30 MG PO (08:43)
[2024-09-12] MEDS: DEX/HYPRO/GLY ARTIFICAL TEARS 225 DROP/15 ML BTL BOTH EYES ×2 (08:43→21:12)
[2024-09-12] MEDS: SENNOSIDES 8.6 MG TABLET GT ×2 (08:44→21:14)
[2024-09-12] MEDS: MULTIVITAMIN W MINERALS 1 EACH TABLET GT (08:44)
--- NOTE | 2024-09-12 19:46 | PD.SAPROG ---
Progress Note - SubAcute DIAGNOSIS (1) Traumatic brain injury: Status: Chronic (2) Anoxic brain damage, not elsewhere classified: Status: Chronic (3) Tracheostomy status: Status: Chronic (4) Gastrostomy status: Status: Chronic (5) Chronic respiratory failure: Status: Chronic SUBJECTIVE Fever:: none GI:: none Shortness of Breath:: none GI:: no complaints Pain:: none OBJECTIVE Most recent vital signs: Last Vital Signs Temp 97.6 F 09/12/24 17:25 Pulse 56 L 09/12/24 17:25 Resp 19 09/12/24 17:25 BP 99/58 L 09/12/24 17:25 Pulse Ox 98 09/12/24 12:00 O2 Del Method Blow-by 09/12/24 12:00 O2 Flow Rate 10 09/12/24 12:00 FiO2 35 09/12/24 12:00 Neurological:: awake Speech:: none Answers questions:: sometimes (Sometimes opens eyes to command.) Respiratory:: lungs clear Cardiovascular: RRR Abdomen: soft and nontender Extremities:: deformities Decubitus:: none Tracheostomy:: to blow by Feeding per:: G tube Complaints:: none ASSESSMENT & PLAN Assessment: Stable status. No improvement in cognitive function. Diagnosis and treatment reviewed. Prognosis remains poor. No evident pain issues. Plan: Current treatment continued as ongoing
[2024-09-13] VITALS (9 sets, daily range): BP systolic 103–123; BP diastolic 62–73; PULSE 53–82; RESP 18–20; TEMP 36.3–36.8; O2SAT 96–98
[2024-09-13] MEDS: MAGNESIUM HYDROXIDE 30 ML ORAL SUSP ML GT
[2024-09-13] MEDS: PROPRANOLOL 20 MG TABLET GT ×2 (05:20→21:04)
[2024-09-13] MEDS: DEXLANSOPRAZOLE 30 MG PO (08:42)
[2024-09-13] MEDS: FISH OIL 1200 MG GT (08:42)
[2024-09-13] MEDS: DEX/HYPRO/GLY ARTIFICAL TEARS 225 DROP/15 ML BTL BOTH EYES ×2 (08:42→21:04)
[2024-09-13] MEDS: SENNOSIDES 8.6 MG TABLET GT ×2 (08:43→21:04)
[2024-09-13] MEDS: MULTIVITAMIN W MINERALS 1 EACH TABLET GT (08:43)
[2024-09-14] VITALS (10 sets, daily range): BP systolic 98–112; BP diastolic 59–72; PULSE 55–73; RESP 17–20; TEMP 36.4–36.8; O2SAT 97–99
[2024-09-14] MEDS: DEXLANSOPRAZOLE 30 MG PO (08:00)
[2024-09-14] MEDS: FISH OIL 1200 MG GT (08:01)
[2024-09-14] MEDS: SENNOSIDES 8.6 MG TABLET GT ×2 (08:01→20:40)
[2024-09-14] MEDS: MULTIVITAMIN W MINERALS 1 EACH TABLET GT (08:01)
[2024-09-14] MEDS: DEX/HYPRO/GLY ARTIFICAL TEARS 225 DROP/15 ML BTL BOTH EYES ×2 (08:07→20:40)
[2024-09-14] MEDS: BISACODYL 10 MG SUPP.RECT PR (10:30)
[2024-09-14] MEDS: PROPRANOLOL 20 MG TABLET GT (20:40)
[2024-09-15] VITALS (9 sets, daily range): BP systolic 101–116; BP diastolic 63–75; PULSE 58–80; RESP 18–20; TEMP 36.3–36.4; O2SAT 96–99
[2024-09-15] MEDS: PROPRANOLOL 20 MG TABLET GT ×3 (05:19→21:45)
[2024-09-15] MEDS: LOSARTAN 25 MG TABLET GT (08:51)
[2024-09-15] MEDS: DEX/HYPRO/GLY ARTIFICAL TEARS 225 DROP/15 ML BTL BOTH EYES ×2 (08:51→20:31)
[2024-09-15] MEDS: DEXLANSOPRAZOLE 30 MG PO (08:51)
[2024-09-15] MEDS: MULTIVITAMIN W MINERALS 1 EACH TABLET GT (08:51)
[2024-09-15] MEDS: FISH OIL 1200 MG GT (08:51)
[2024-09-15] MEDS: SENNOSIDES 8.6 MG TABLET GT ×2 (08:52→20:31)
[2024-09-15] MEDS: ACETAMINOPHEN 325 MG TABLET 650 MG GT (20:20)
[2024-09-16] VITALS (7 sets, daily range): BP systolic 103–113; BP diastolic 64–74; PULSE 65–88; RESP 18–22; TEMP 36.3–36.4; O2SAT 97
[2024-09-16] MEDS: PROPRANOLOL 20 MG TABLET GT ×3 (05:44→20:42)
[2024-09-16] MEDS: MULTIVITAMIN W MINERALS 1 EACH TABLET GT (09:05)
[2024-09-16] MEDS: SENNOSIDES 8.6 MG TABLET GT ×2 (09:05→20:41)
[2024-09-16] MEDS: LOSARTAN 25 MG TABLET GT (09:05)
[2024-09-16] MEDS: DEXLANSOPRAZOLE 30 MG PO (09:05)
[2024-09-16] MEDS: FISH OIL 1200 MG GT (09:05)
[2024-09-16] MEDS: DEX/HYPRO/GLY ARTIFICAL TEARS 225 DROP/15 ML BTL BOTH EYES ×2 (09:05→20:41)
--- NOTE | 2024-09-16 13:55 | PD.SAPROG ---
Progress Note - SubAcute DIAGNOSIS (1) Traumatic brain injury: Status: Chronic (2) Anoxic brain damage, not elsewhere classified: Status: Chronic (3) Tracheostomy status: Status: Chronic (4) Gastrostomy status: Status: Chronic (5) Chronic respiratory failure: Status: Chronic SUBJECTIVE Fever:: none GI:: none Shortness of Breath:: none GI:: no complaints Pain:: none OBJECTIVE Most recent vital signs: Last Vital Signs Temp 98.2 F 09/18/24 17:57 Pulse 70 09/18/24 21:00 Resp 18 09/18/24 17:57 BP 106/72 09/18/24 21:00 Pulse Ox 98 09/18/24 17:57 O2 Del Method Blow-by 09/18/24 17:57 O2 Flow Rate 10 09/18/24 17:57 FiO2 35 09/18/24 17:57 Neurological:: awake Speech:: none Answers questions:: sometimes (Sometimes opens eyes to command.) Respiratory:: lungs clear Cardiovascular: RRR Abdomen: soft and nontender Extremities:: deformities Decubitus:: none Tracheostomy:: to blow by Feeding per:: G tube Complaints:: none ASSESSMENT & PLAN Assessment: Stable status. No improvement in cognitive function. Diagnosis and treatment reviewed. Prognosis remains poor. No evident pain issues. Plan: Current treatment continued as ongoing
[2024-09-16] MEDS: ACETAMINOPHEN 325 MG TABLET 650 MG GT (20:40)
[2024-09-17] VITALS (11 sets, daily range): BP systolic 99–127; BP diastolic 57–78; PULSE 52–81; RESP 16–22; TEMP 36.2–36.6; O2SAT 97–98; BMI 25.4
[2024-09-17] MEDS: DEX/HYPRO/GLY ARTIFICAL TEARS 225 DROP/15 ML BTL BOTH EYES ×2 (08:14→20:42)
[2024-09-17] MEDS: LOSARTAN 25 MG TABLET GT (08:16)
[2024-09-17] MEDS: SENNOSIDES 8.6 MG TABLET GT ×2 (08:16→20:42)
[2024-09-17] MEDS: MULTIVITAMIN W MINERALS 1 EACH TABLET GT (08:16)
[2024-09-17] MEDS: DEXLANSOPRAZOLE 30 MG PO (08:16)
[2024-09-17] MEDS: FISH OIL 1200 MG GT (08:16)
[2024-09-17] MEDS: MAGNESIUM HYDROXIDE 30 ML ORAL SUSP ML GT (08:17)
[2024-09-17] MEDS: PROPRANOLOL 20 MG TABLET GT ×2 (14:14→21:04)
[2024-09-17] MEDS: BISACODYL 10 MG SUPP.RECT PR (23:50)
[2024-09-18] VITALS (11 sets, daily range): BP systolic 93–134; BP diastolic 61–82; PULSE 51–96; RESP 18–20; TEMP 36.8–37.1; O2SAT 95–98
[2024-09-18] MEDS: PROPRANOLOL 20 MG TABLET GT ×3 (05:11→21:00)
[2024-09-18] MEDS: DEX/HYPRO/GLY ARTIFICAL TEARS 225 DROP/15 ML BTL BOTH EYES ×2 (08:03→20:59)
[2024-09-18] MEDS: DEXLANSOPRAZOLE 30 MG PO (08:03)
[2024-09-18] MEDS: FISH OIL 1200 MG GT (08:04)
[2024-09-18] MEDS: LOSARTAN 25 MG TABLET GT (08:04)
[2024-09-18] MEDS: ACETAMINOPHEN 325 MG TABLET 650 MG GT (08:05)
[2024-09-18] MEDS: MULTIVITAMIN W MINERALS 1 EACH TABLET GT (08:05)
[2024-09-18] MEDS: SENNOSIDES 8.6 MG TABLET GT ×2 (08:05→21:00)
--- NOTE | 2024-09-18 17:37 | PC.NURSE ---
Resident's left great noted with open area and discoloration. Noted that skin peeled off. No bleeding or s/s of infection noted
--- NOTE | 2024-09-18 17:40 | PC.NURSE ---
Addendum entered by Vickie Wheeler RN 09/18/24 19:06: Resident's abdelrahman Jacobs called back and made aware of resident's left great toe Original Note: Resident's left great toe noted with open area, skin peeled off and with discoloration. No bleeding or s/s of infection noted. With new orders received. Tried to call resident's daughter Arlene but unable to get hold of her. Left message to call us back
[2024-09-19] VITALS (8 sets, daily range): BP systolic 101–122; BP diastolic 64–73; PULSE 56–88; RESP 17–20; TEMP 36.4–36.6; O2SAT 97–98
[2024-09-19] MEDS: MULTIVITAMIN W MINERALS 1 EACH TABLET GT (09:00)
[2024-09-19] MEDS: FISH OIL 1200 MG GT (09:00)
[2024-09-19] MEDS: DEXLANSOPRAZOLE 30 MG PO (09:00)
[2024-09-19] MEDS: SENNOSIDES 8.6 MG TABLET GT ×2 (09:00→20:54)
[2024-09-19] MEDS: DEX/HYPRO/GLY ARTIFICAL TEARS 225 DROP/15 ML BTL BOTH EYES ×2 (09:00→20:54)
[2024-09-19] MEDS: LOSARTAN 25 MG TABLET GT (09:01)
[2024-09-19] MEDS: ACETAMINOPHEN 325 MG TABLET 650 MG GT (09:24)
[2024-09-19] MEDS: PROPRANOLOL 20 MG TABLET GT ×2 (14:52→21:00)
[2024-09-20] VITALS (10 sets, daily range): BP systolic 99–130; BP diastolic 61–80; PULSE 53–77; RESP 17–20; TEMP 36.3–36.7; O2SAT 95–98
[2024-09-20] MEDS: PROPRANOLOL 20 MG TABLET GT ×3 (05:25→21:00)
[2024-09-20] MEDS: FISH OIL 1200 MG GT (08:05)
[2024-09-20] MEDS: MULTIVITAMIN W MINERALS 1 EACH TABLET GT (08:05)
[2024-09-20] MEDS: DEX/HYPRO/GLY ARTIFICAL TEARS 225 DROP/15 ML BTL BOTH EYES ×2 (08:05→20:55)
[2024-09-20] MEDS: SENNOSIDES 8.6 MG TABLET GT ×2 (08:05→20:55)
[2024-09-20] MEDS: LOSARTAN 25 MG TABLET GT (08:05)
[2024-09-20] MEDS: DEXLANSOPRAZOLE 30 MG PO (08:05)
--- NOTE | 2024-09-20 18:27 | PD.SAPROG ---
Progress Note - SubAcute DIAGNOSIS (1) Traumatic brain injury: Status: Chronic (2) Anoxic brain damage, not elsewhere classified: Status: Chronic (3) Tracheostomy status: Status: Chronic (4) Gastrostomy status: Status: Chronic (5) Chronic respiratory failure: Status: Chronic SUBJECTIVE Fever:: none GI:: none Shortness of Breath:: none GI:: no complaints Pain:: none OBJECTIVE Most recent vital signs: Last Vital Signs Temp 98.0 F 09/20/24 17:46 Pulse 62 09/20/24 17:46 Resp 19 09/20/24 17:46 BP 106/71 09/20/24 17:46 Pulse Ox 97 09/20/24 11:37 O2 Del Method Blow-by 09/20/24 11:37 O2 Flow Rate 10 09/20/24 11:37 FiO2 35 09/20/24 11:37 Neurological:: awake Speech:: none Answers questions:: sometimes (Sometimes opens eyes to command.) Respiratory:: lungs clear Cardiovascular: RRR Abdomen: soft and nontender Extremities:: deformities Decubitus:: none Tracheostomy:: to blow by Feeding per:: G tube Complaints:: none ASSESSMENT & PLAN Assessment: Stable status. No improvement in cognitive function. Diagnosis and treatment reviewed. Prognosis remains poor. No evident pain issues.Comfort objective being achieved. Plan: Current treatment continued as ongoing
[2024-09-21] VITALS (10 sets, daily range): BP systolic 100–115; BP diastolic 61–73; PULSE 56–71; RESP 18–20; TEMP 36.4–36.6; O2SAT 95–100
[2024-09-21] MEDS: PROPRANOLOL 20 MG TABLET GT ×2 (05:42→13:58)
[2024-09-21] MEDS: DEXLANSOPRAZOLE 30 MG PO (08:31)
[2024-09-21] MEDS: SENNOSIDES 8.6 MG TABLET GT ×2 (08:31→20:22)
[2024-09-21] MEDS: MULTIVITAMIN W MINERALS 1 EACH TABLET GT (08:31)
[2024-09-21] MEDS: FISH OIL 1200 MG GT (08:31)
[2024-09-21] MEDS: LOSARTAN 25 MG TABLET GT (08:31)
[2024-09-21] MEDS: DEX/HYPRO/GLY ARTIFICAL TEARS 225 DROP/15 ML BTL BOTH EYES ×2 (08:31→20:22)
[2024-09-21] MEDS: ACETAMINOPHEN 325 MG TABLET 650 MG GT (20:15)
[2024-09-22] VITALS (10 sets, daily range): BP systolic 91–118; BP diastolic 52–75; PULSE 50–78; RESP 16–20; TEMP 36.3–36.9; O2SAT 97–99
[2024-09-22] MEDS: MULTIVITAMIN W MINERALS 1 EACH TABLET GT (08:56)
[2024-09-22] MEDS: DEX/HYPRO/GLY ARTIFICAL TEARS 225 DROP/15 ML BTL BOTH EYES ×2 (08:56→20:47)
[2024-09-22] MEDS: SENNOSIDES 8.6 MG TABLET GT ×2 (08:56→20:47)
[2024-09-22] MEDS: DEXLANSOPRAZOLE 30 MG PO (08:56)
[2024-09-22] MEDS: FISH OIL 1200 MG GT (08:56)
[2024-09-22] MEDS: BISACODYL 10 MG SUPP.RECT PR (11:06)
[2024-09-22] MEDS: PROPRANOLOL 20 MG TABLET GT ×2 (13:58→21:09)
[2024-09-23] VITALS (10 sets, daily range): BP systolic 96–110; BP diastolic 56–72; PULSE 54–76; RESP 16–20; TEMP 36.3–36.6; O2SAT 89–96
[2024-09-23] MEDS: PROPRANOLOL 20 MG TABLET GT ×3 (05:47→21:22)
[2024-09-23] MEDS: LOSARTAN 25 MG TABLET GT (08:46)
[2024-09-23] MEDS: DEX/HYPRO/GLY ARTIFICAL TEARS 225 DROP/15 ML BTL BOTH EYES ×2 (08:46→21:22)
[2024-09-23] MEDS: DEXLANSOPRAZOLE 30 MG PO (08:46)
[2024-09-23] MEDS: FISH OIL 1200 MG GT (08:46)
[2024-09-23] MEDS: MULTIVITAMIN W MINERALS 1 EACH TABLET GT (08:47)
[2024-09-23] MEDS: SENNOSIDES 8.6 MG TABLET GT ×2 (08:47→21:22)
[2024-09-24] VITALS (11 sets, daily range): BP systolic 103–133; BP diastolic 69–85; PULSE 52–89; RESP 16–20; TEMP 36.1–36.6; O2SAT 95–99
[2024-09-24] MEDS: SENNOSIDES 8.6 MG TABLET GT ×2 (08:51→21:10)
[2024-09-24] MEDS: MULTIVITAMIN W MINERALS 1 EACH TABLET GT (08:51)
[2024-09-24] MEDS: FISH OIL 1200 MG GT (08:51)
[2024-09-24] MEDS: DEX/HYPRO/GLY ARTIFICAL TEARS 225 DROP/15 ML BTL BOTH EYES ×2 (08:51→21:09)
[2024-09-24] MEDS: LOSARTAN 25 MG TABLET GT (08:51)
[2024-09-24] MEDS: DEXLANSOPRAZOLE 30 MG PO (08:51)
[2024-09-24] MEDS: PROPRANOLOL 20 MG TABLET GT ×2 (14:07→21:10)
--- NOTE | 2024-09-24 20:00 | PD.SAPROG ---
Progress Note - SubAcute DIAGNOSIS (1) Traumatic brain injury: Status: Chronic (2) Anoxic brain damage, not elsewhere classified: Status: Chronic (3) Tracheostomy status: Status: Chronic (4) Gastrostomy status: Status: Chronic (5) Chronic respiratory failure: Status: Chronic SUBJECTIVE Fever:: none GI:: none Shortness of Breath:: none GI:: no complaints Pain:: none OBJECTIVE Most recent vital signs: Last Vital Signs Temp 97.5 F 09/24/24 17:10 Pulse 53 L 09/24/24 17:10 Resp 20 09/24/24 17:10 BP 133/85 H 09/24/24 17:10 Pulse Ox 98 09/24/24 12:00 O2 Del Method Blow-by 09/24/24 12:00 O2 Flow Rate 10 09/24/24 12:00 FiO2 40 09/24/24 12:00 Neurological:: awake Speech:: none Answers questions:: sometimes (Sometimes opens eyes to command.) Respiratory:: lungs clear Cardiovascular: RRR Abdomen: soft and nontender Extremities:: deformities Decubitus:: none Tracheostomy:: to blow by Feeding per:: G tube Complaints:: none ASSESSMENT & PLAN Assessment: Stable status. No improvement in cognitive function. Diagnosis and treatment reviewed. Prognosis remains poor. No evident pain issues.Comfort objective being achieved. Plan: Current treatment continued as ongoing
[2024-09-25] VITALS (10 sets, daily range): BP systolic 99–127; BP diastolic 62–75; PULSE 55–91; RESP 18–20; TEMP 36.2–36.6; O2SAT 97–98
[2024-09-25] MEDS: DEXLANSOPRAZOLE 30 MG PO (08:10)
[2024-09-25] MEDS: FISH OIL 1200 MG GT (08:10)
[2024-09-25] MEDS: DEX/HYPRO/GLY ARTIFICAL TEARS 225 DROP/15 ML BTL BOTH EYES ×2 (08:10→21:32)
[2024-09-25] MEDS: LOSARTAN 25 MG TABLET GT (08:10)
[2024-09-25] MEDS: SENNOSIDES 8.6 MG TABLET GT ×2 (08:10→21:32)
[2024-09-25] MEDS: MULTIVITAMIN W MINERALS 1 EACH TABLET GT (08:10)
[2024-09-25] MEDS: PROPRANOLOL 20 MG TABLET GT (14:07)
[2024-09-25] MEDS: MAGNESIUM HYDROXIDE 30 ML ORAL SUSP ML GT (21:33)
[2024-09-26] VITALS (9 sets, daily range): BP systolic 106–128; BP diastolic 68–81; PULSE 53–76; RESP 16–19; TEMP 36.3–37.2; O2SAT 97–99
[2024-09-26] MEDS: PROPRANOLOL 20 MG TABLET GT ×2 (05:24→21:45)
[2024-09-26] MEDS: FISH OIL 1200 MG GT (08:46)
[2024-09-26] MEDS: DEX/HYPRO/GLY ARTIFICAL TEARS 225 DROP/15 ML BTL BOTH EYES ×2 (08:46→20:21)
[2024-09-26] MEDS: DEXLANSOPRAZOLE 30 MG PO (08:46)
[2024-09-26] MEDS: SENNOSIDES 8.6 MG TABLET GT ×2 (08:47→20:22)
[2024-09-26] MEDS: MULTIVITAMIN W MINERALS 1 EACH TABLET GT (08:47)
[2024-09-26] MEDS: LOSARTAN 25 MG TABLET GT (08:47)
[2024-09-27] VITALS (11 sets, daily range): BP systolic 98–114; BP diastolic 62–76; PULSE 54–79; RESP 16–22; TEMP 36.2–36.6; O2SAT 95–98
[2024-09-27] MEDS: DEX/HYPRO/GLY ARTIFICAL TEARS 225 DROP/15 ML BTL BOTH EYES ×2 (08:30→20:35)
[2024-09-27] MEDS: FISH OIL 1200 MG GT (08:31)
[2024-09-27] MEDS: DEXLANSOPRAZOLE 30 MG PO (08:31)
[2024-09-27] MEDS: ACETAMINOPHEN 325 MG TABLET 650 MG GT (08:32)
[2024-09-27] MEDS: SENNOSIDES 8.6 MG TABLET GT ×2 (08:32→20:36)
[2024-09-27] MEDS: MULTIVITAMIN W MINERALS 1 EACH TABLET GT (08:32)
[2024-09-27] MEDS: MAGNESIUM HYDROXIDE 30 ML ORAL SUSP ML GT (08:32)
[2024-09-27] MEDS: PROPRANOLOL 20 MG TABLET GT ×2 (14:00→21:29)
[2024-09-28] VITALS (10 sets, daily range): BP systolic 99–109; BP diastolic 60–75; PULSE 57–77; RESP 16–18; TEMP 36.1–36.3; O2SAT 96
[2024-09-28] MEDS: PROPRANOLOL 20 MG TABLET GT ×3 (05:34→21:10)
[2024-09-28] MEDS: FISH OIL 1200 MG GT (08:13)
[2024-09-28] MEDS: DEX/HYPRO/GLY ARTIFICAL TEARS 225 DROP/15 ML BTL BOTH EYES ×2 (08:13→21:10)
[2024-09-28] MEDS: DEXLANSOPRAZOLE 30 MG PO (08:13)
[2024-09-28] MEDS: SENNOSIDES 8.6 MG TABLET GT ×2 (08:14→21:10)
[2024-09-28] MEDS: ACETAMINOPHEN 325 MG TABLET 650 MG GT (08:14)
[2024-09-28] MEDS: MULTIVITAMIN W MINERALS 1 EACH TABLET GT (08:14)
--- NOTE | 2024-09-28 16:08 | PC.SS ---
Resident seen by Manager Fiber Dr. Thomason for routine toe nail trim. No new orders or recommendations at this time, to continue current care.
--- NOTE | 2024-09-28 21:23 | PD.SAPROG ---
Progress Note - SubAcute DIAGNOSIS (1) Traumatic brain injury: Status: Chronic (2) Anoxic brain damage, not elsewhere classified: Status: Chronic (3) Tracheostomy status: Status: Chronic (4) Gastrostomy status: Status: Chronic (5) Chronic respiratory failure: Status: Chronic SUBJECTIVE Fever:: none GI:: none Shortness of Breath:: none GI:: no complaints Pain:: none OBJECTIVE Most recent vital signs: Last Vital Signs Temp 97.3 F 09/28/24 17:46 Pulse 71 09/28/24 21:10 Resp 18 09/28/24 17:46 BP 109/73 09/28/24 21:10 Pulse Ox 96 09/28/24 17:46 O2 Del Method Blow-by 09/28/24 17:46 O2 Flow Rate 10 09/28/24 07:15 FiO2 40 09/28/24 07:15 Neurological:: awake Speech:: none Answers questions:: sometimes (Sometimes opens eyes to command.) Respiratory:: lungs clear Cardiovascular: RRR Abdomen: soft and nontender Extremities:: deformities Decubitus:: none Tracheostomy:: to blow by Feeding per:: G tube Complaints:: none ASSESSMENT & PLAN Assessment: Stable status. No improvement in cognitive function. Diagnosis and treatment reviewed. Prognosis remains poor. No evident pain issues.Comfort objective being achieved. Plan: Current treatment continued as ongoing
[2024-09-29] VITALS (9 sets, daily range): BP systolic 89–130; BP diastolic 59–80; PULSE 55–102; RESP 16–18; TEMP 36.1–36.6; O2SAT 96–99
[2024-09-29] MEDS: DEX/HYPRO/GLY ARTIFICAL TEARS 225 DROP/15 ML BTL BOTH EYES ×2 (08:14→21:47)
[2024-09-29] MEDS: LOSARTAN 25 MG TABLET GT (08:15)
[2024-09-29] MEDS: DEXLANSOPRAZOLE 30 MG PO (08:15)
[2024-09-29] MEDS: SENNOSIDES 8.6 MG TABLET GT ×2 (08:15→21:48)
[2024-09-29] MEDS: MULTIVITAMIN W MINERALS 1 EACH TABLET GT (08:15)
[2024-09-29] MEDS: FISH OIL 1200 MG GT (08:15)
[2024-09-29] MEDS: PROPRANOLOL 20 MG TABLET GT ×2 (13:21→21:48)
[2024-09-30] VITALS (9 sets, daily range): BP systolic 100–110; BP diastolic 59–70; PULSE 60–77; RESP 16–18; TEMP 36.5–36.6; O2SAT 94–97
[2024-09-30] MEDS: PROPRANOLOL 20 MG TABLET GT ×3 (05:47→21:00)
[2024-09-30] MEDS: DEX/HYPRO/GLY ARTIFICAL TEARS 225 DROP/15 ML BTL BOTH EYES ×2 (08:17→20:53)
[2024-09-30] MEDS: DEXLANSOPRAZOLE 30 MG PO (08:17)
[2024-09-30] MEDS: FISH OIL 1200 MG GT (08:17)
[2024-09-30] MEDS: MULTIVITAMIN W MINERALS 1 EACH TABLET GT (08:18)
[2024-09-30] MEDS: SENNOSIDES 8.6 MG TABLET GT ×2 (08:18→20:54)
[2024-10-01] VITALS (10 sets, daily range): BP systolic 98–109; BP diastolic 59–71; PULSE 50–668; RESP 16–20; TEMP 36.2–36.3; O2SAT 95–97
[2024-10-01] MEDS: DEXLANSOPRAZOLE 30 MG PO (08:33)
[2024-10-01] MEDS: FISH OIL 1200 MG GT (08:33)
[2024-10-01] MEDS: DEX/HYPRO/GLY ARTIFICAL TEARS 225 DROP/15 ML BTL BOTH EYES ×2 (08:33→21:16)
[2024-10-01] MEDS: MULTIVITAMIN W MINERALS 1 EACH TABLET GT (08:34)
[2024-10-01] MEDS: SENNOSIDES 8.6 MG TABLET GT ×2 (08:34→21:16)
[2024-10-01] MEDS: PROPRANOLOL 20 MG TABLET GT (14:10)
[2024-10-02] VITALS (9 sets, daily range): BP systolic 99–124; BP diastolic 67–74; PULSE 56–83; RESP 18; TEMP 36.3–36.7; O2SAT 96–97
[2024-10-02] MEDS: PROPRANOLOL 20 MG TABLET GT ×2 (06:12→14:09)
[2024-10-02] MEDS: DEX/HYPRO/GLY ARTIFICAL TEARS 225 DROP/15 ML BTL BOTH EYES ×2 (08:55→20:38)
[2024-10-02] MEDS: FISH OIL 1200 MG GT (08:55)
[2024-10-02] MEDS: DEXLANSOPRAZOLE 30 MG PO (08:55)
[2024-10-02] MEDS: MULTIVITAMIN W MINERALS 1 EACH TABLET GT (08:56)
[2024-10-02] MEDS: SENNOSIDES 8.6 MG TABLET GT ×2 (08:56→20:38)
--- NOTE | 2024-10-02 14:33 | PC.SS ---
Room visit: Resident daughter is his decision maker as he is unable to make needs known. Resident is laying in bed with head of the bed elevated with call light properly placed with no signs of distress. Resident remains on blow by with trach in place and GT for medication and nutrition. Resident has no changes in care or condition he will remain in current care as he is unable to return home due to heavy and complicated care regimen. All subacute care needs to be met in facility by staff.
--- NOTE | 2024-10-02 21:22 | PD.SAPROG ---
Progress Note - SubAcute DIAGNOSIS (1) Traumatic brain injury: Status: Chronic (2) Anoxic brain damage, not elsewhere classified: Status: Chronic (3) Tracheostomy status: Status: Chronic (4) Gastrostomy status: Status: Chronic (5) Chronic respiratory failure: Status: Chronic SUBJECTIVE Fever:: none GI:: none Shortness of Breath:: none GI:: no complaints Pain:: none OBJECTIVE Most recent vital signs: Last Vital Signs Temp 97.3 F 10/02/24 12:00 Pulse 64 10/02/24 21:15 Resp 18 10/02/24 12:00 BP 99/67 10/02/24 21:15 Pulse Ox 96 10/02/24 12:00 O2 Del Method Blow-by 10/02/24 12:00 O2 Flow Rate 10 10/02/24 12:00 FiO2 40 10/02/24 12:00 Neurological:: awake Speech:: none Answers questions:: sometimes (Sometimes opens eyes to command.) Respiratory:: lungs clear Cardiovascular: RRR Abdomen: soft and nontender Extremities:: deformities Decubitus:: none Tracheostomy:: to blow by Feeding per:: G tube Complaints:: none ASSESSMENT & PLAN Assessment: Stable status. No improvement in cognitive function. Diagnosis and treatment reviewed. Prognosis remains poor. No evident pain issues.Comfort objective being achieved. Plan: Current treatment continued as ongoing
[2024-10-03] VITALS (9 sets, daily range): BP systolic 99–120; BP diastolic 63–80; PULSE 71–81; RESP 18–20; TEMP 36–36.7; O2SAT 96–98
[2024-10-03] MEDS: PROPRANOLOL 20 MG TABLET GT ×3 (05:11→22:00)
[2024-10-03] MEDS: DEX/HYPRO/GLY ARTIFICAL TEARS 225 DROP/15 ML BTL BOTH EYES ×2 (09:52→20:44)
[2024-10-03] MEDS: LOSARTAN 25 MG TABLET GT (09:52)
[2024-10-03] MEDS: FISH OIL 1200 MG GT (09:53)
[2024-10-03] MEDS: DEXLANSOPRAZOLE 30 MG PO (09:53)
[2024-10-03] MEDS: SENNOSIDES 8.6 MG TABLET GT ×2 (09:53→20:44)
[2024-10-03] MEDS: MULTIVITAMIN W MINERALS 1 EACH TABLET GT (09:53)
[2024-10-04] VITALS (7 sets, daily range): BP systolic 106–116; BP diastolic 69–72; PULSE 63–79; RESP 18–20; TEMP 36.1; O2SAT 97–99
[2024-10-04] MEDS: PROPRANOLOL 20 MG TABLET GT ×3 (05:47→21:06)
[2024-10-04] MEDS: SENNOSIDES 8.6 MG TABLET GT ×2 (09:00→21:05)
[2024-10-04] MEDS: DEXLANSOPRAZOLE 30 MG PO (09:41)
[2024-10-04] MEDS: DEX/HYPRO/GLY ARTIFICAL TEARS 225 DROP/15 ML BTL BOTH EYES ×2 (09:41→21:05)
[2024-10-04] MEDS: MULTIVITAMIN W MINERALS 1 EACH TABLET GT (09:41)
[2024-10-04] MEDS: LOSARTAN 25 MG TABLET GT (09:41)
[2024-10-04] MEDS: FISH OIL 1200 MG GT (09:41)
[2024-10-05] VITALS (10 sets, daily range): BP systolic 96–106; BP diastolic 62–69; PULSE 65–81; RESP 16–20; TEMP 36.2–36.9; O2SAT 93–98
[2024-10-05] MEDS: DEX/HYPRO/GLY ARTIFICAL TEARS 225 DROP/15 ML BTL BOTH EYES ×2 (08:13→20:43)
[2024-10-05] MEDS: SENNOSIDES 8.6 MG TABLET GT ×2 (08:15→20:43)
[2024-10-05] MEDS: FISH OIL 1200 MG GT (08:15)
[2024-10-05] MEDS: DEXLANSOPRAZOLE 30 MG PO (08:15)
[2024-10-05] MEDS: MULTIVITAMIN W MINERALS 1 EACH TABLET GT (08:15)
[2024-10-05] MEDS: PROPRANOLOL 20 MG TABLET GT ×2 (13:28→21:22)
[2024-10-06] VITALS (10 sets, daily range): BP systolic 96–112; BP diastolic 65–73; PULSE 58–73; RESP 18–20; TEMP 36.1–36.7; O2SAT 88–97
[2024-10-06] MEDS: DEXLANSOPRAZOLE 30 MG PO (08:07)
[2024-10-06] MEDS: DEX/HYPRO/GLY ARTIFICAL TEARS 225 DROP/15 ML BTL BOTH EYES ×2 (08:07→21:34)
[2024-10-06] MEDS: MULTIVITAMIN W MINERALS 1 EACH TABLET GT (08:08)
[2024-10-06] MEDS: FISH OIL 1200 MG GT (08:08)
[2024-10-06] MEDS: LOSARTAN 25 MG TABLET GT (08:08)
[2024-10-06] MEDS: SENNOSIDES 8.6 MG TABLET GT ×2 (08:09→21:35)
--- NOTE | 2024-10-06 11:25 | PD.SAPROG ---
Progress Note - SubAcute DIAGNOSIS (1) Traumatic brain injury: Status: Chronic (2) Anoxic brain damage, not elsewhere classified: Status: Chronic (3) Tracheostomy status: Status: Chronic (4) Gastrostomy status: Status: Chronic (5) Chronic respiratory failure: Status: Chronic SUBJECTIVE Fever:: none GI:: none Shortness of Breath:: none GI:: no complaints Pain:: none OBJECTIVE Most recent vital signs: Last Vital Signs Temp 96.9 F 10/06/24 06:00 Pulse 73 10/06/24 08:08 Resp 18 10/06/24 06:58 BP 112/69 10/06/24 08:08 Pulse Ox 88 L 10/06/24 06:58 O2 Del Method Blow-by 10/05/24 17:35 O2 Flow Rate 10 10/06/24 06:58 FiO2 40 10/06/24 06:58 Neurological:: awake Speech:: none Answers questions:: sometimes (Sometimes opens eyes to command.) Respiratory:: lungs clear Cardiovascular: RRR Abdomen: soft and nontender Extremities:: deformities Decubitus:: none Tracheostomy:: to blow by Feeding per:: G tube Complaints:: none ASSESSMENT & PLAN Assessment: Stable status. No improvement in cognitive function. Diagnosis and treatment reviewed. Prognosis remains poor. No evident pain issues.Comfort objective being achieved. Plan: Current treatment continued as ongoing
[2024-10-06] MEDS: PROPRANOLOL 20 MG TABLET GT (14:18)
[2024-10-07] VITALS (10 sets, daily range): BP systolic 97–104; BP diastolic 63–99; PULSE 64–85; RESP 18–20; TEMP 36.3–36.5; O2SAT 95–97
[2024-10-07] MEDS: DEXLANSOPRAZOLE 30 MG PO (08:49)
[2024-10-07] MEDS: DEX/HYPRO/GLY ARTIFICAL TEARS 225 DROP/15 ML BTL BOTH EYES ×2 (08:49→21:51)
[2024-10-07] MEDS: FISH OIL 1200 MG GT (08:49)
[2024-10-07] MEDS: SENNOSIDES 8.6 MG TABLET GT ×2 (08:50→21:51)
[2024-10-07] MEDS: MULTIVITAMIN W MINERALS 1 EACH TABLET GT (08:50)
[2024-10-07] MEDS: PROPRANOLOL 20 MG TABLET GT (21:52)
[2024-10-08] VITALS (10 sets, daily range): BP systolic 97–113; BP diastolic 61–71; PULSE 59–82; RESP 16–20; TEMP 36.3–36.5; O2SAT 95–98
--- NOTE | 2024-10-08 00:12 | PC.NURSE ---
amy changed to sacrum.
--- NOTE | 2024-10-08 03:50 | PC.NURSE ---
mouth care done with moistened oral swab. Applied lip moisturizer.
[2024-10-08] MEDS: MULTIVITAMIN W MINERALS 1 EACH TABLET GT (08:42)
[2024-10-08] MEDS: DEX/HYPRO/GLY ARTIFICAL TEARS 225 DROP/15 ML BTL BOTH EYES ×2 (08:42→21:14)
[2024-10-08] MEDS: DEXLANSOPRAZOLE 30 MG PO (08:42)
[2024-10-08] MEDS: FISH OIL 1200 MG GT (08:42)
[2024-10-08] MEDS: SENNOSIDES 8.6 MG TABLET GT ×2 (08:43→21:15)
[2024-10-08] MEDS: PROPRANOLOL 20 MG TABLET GT ×2 (14:48→21:15)
[2024-10-09] VITALS (10 sets, daily range): BP systolic 97–119; BP diastolic 61–74; PULSE 53–74; RESP 17–18; TEMP 36.1–36.5; O2SAT 97–99
[2024-10-09] MEDS: FISH OIL 1200 MG GT (09:59)
[2024-10-09] MEDS: MULTIVITAMIN W MINERALS 1 EACH TABLET GT (09:59)
[2024-10-09] MEDS: DEX/HYPRO/GLY ARTIFICAL TEARS 225 DROP/15 ML BTL BOTH EYES ×2 (09:59→20:43)
[2024-10-09] MEDS: LOSARTAN 25 MG TABLET GT (09:59)
[2024-10-09] MEDS: DEXLANSOPRAZOLE 30 MG PO (09:59)
[2024-10-09] MEDS: SENNOSIDES 8.6 MG TABLET GT ×2 (10:00→20:44)
--- NOTE | 2024-10-09 15:32 | PC.SS ---
Room Visit: Resident remains in current care with no changes in care or condition. Remains on blow by with trach in place and GT for medication and nutrition. Resident is unable to make needs known, resident is represented by his daughter. Resident will remain in current care and will continue to have all subacute care needs met by staff. No changes in mood and behavior.
[2024-10-09] MEDS: PROPRANOLOL 20 MG TABLET GT (21:27)
[2024-10-10] VITALS (11 sets, daily range): BP systolic 94–139; BP diastolic 61–83; PULSE 58–84; RESP 16–21; TEMP 36.4–36.7; O2SAT 95–98
[2024-10-10] MEDS: DEXLANSOPRAZOLE 30 MG PO (08:12)
[2024-10-10] MEDS: DEX/HYPRO/GLY ARTIFICAL TEARS 225 DROP/15 ML BTL BOTH EYES ×2 (08:12→21:20)
[2024-10-10] MEDS: FISH OIL 1200 MG GT (08:12)
[2024-10-10] MEDS: LOSARTAN 25 MG TABLET GT (08:12)
[2024-10-10] MEDS: SENNOSIDES 8.6 MG TABLET GT ×2 (08:13→21:20)
[2024-10-10] MEDS: MULTIVITAMIN W MINERALS 1 EACH TABLET GT (08:13)
[2024-10-10] MEDS: PROPRANOLOL 20 MG TABLET GT ×2 (14:00→21:20)
--- NOTE | 2024-10-10 18:20 | PD.SAPROG ---
Progress Note - SubAcute DIAGNOSIS (1) Traumatic brain injury: Status: Chronic (2) Anoxic brain damage, not elsewhere classified: Status: Chronic (3) Tracheostomy status: Status: Chronic (4) Gastrostomy status: Status: Chronic (5) Chronic respiratory failure: Status: Chronic SUBJECTIVE Fever:: none GI:: none Shortness of Breath:: none GI:: no complaints Pain:: none OBJECTIVE Most recent vital signs: Last Vital Signs Temp 98.2 F 10/12/24 17:44 Pulse 68 10/12/24 17:44 Resp 19 10/12/24 17:44 BP 106/69 10/12/24 17:44 Pulse Ox 97 10/12/24 17:44 O2 Del Method Blow-by 10/12/24 17:44 O2 Flow Rate 10 10/12/24 16:30 FiO2 35 10/12/24 16:30 Neurological:: awake Speech:: none Answers questions:: sometimes (Sometimes opens eyes to command.) Respiratory:: lungs clear Cardiovascular: RRR Abdomen: soft and nontender Extremities:: deformities Decubitus:: none Tracheostomy:: to blow by Feeding per:: G tube Complaints:: none ASSESSMENT & PLAN Assessment: Stable status. No improvement in cognitive function. Diagnosis and treatment reviewed. Prognosis remains poor. No evident pain issues.Comfort objective being achieved. Plan: Current treatment continued as ongoing
[2024-10-11] VITALS (9 sets, daily range): BP systolic 102–126; BP diastolic 64–73; PULSE 55–84; RESP 17–18; TEMP 36.3–36.5; O2SAT 95–98
[2024-10-11] MEDS: PROPRANOLOL 20 MG TABLET GT ×3 (05:18→21:08)
[2024-10-11] MEDS: DEX/HYPRO/GLY ARTIFICAL TEARS 225 DROP/15 ML BTL BOTH EYES ×2 (09:13→20:29)
[2024-10-11] MEDS: FISH OIL 1200 MG GT (09:13)
[2024-10-11] MEDS: DEXLANSOPRAZOLE 30 MG PO (09:14)
[2024-10-11] MEDS: SENNOSIDES 8.6 MG TABLET GT ×2 (09:14→20:31)
[2024-10-11] MEDS: MULTIVITAMIN W MINERALS 1 EACH TABLET GT (09:14)
[2024-10-12] VITALS (10 sets, daily range): BP systolic 99–109; BP diastolic 64–71; PULSE 54–76; RESP 18–19; TEMP 36.2–36.8; O2SAT 95–97
[2024-10-12] MEDS: DEX/HYPRO/GLY ARTIFICAL TEARS 225 DROP/15 ML BTL BOTH EYES ×2 (08:55→20:58)
[2024-10-12] MEDS: FISH OIL 1200 MG GT (08:56)
[2024-10-12] MEDS: SENNOSIDES 8.6 MG TABLET GT ×2 (08:56→20:58)
[2024-10-12] MEDS: MULTIVITAMIN W MINERALS 1 EACH TABLET GT (08:56)
[2024-10-12] MEDS: DEXLANSOPRAZOLE 30 MG PO (08:56)
--- NOTE | 2024-10-12 14:35 | PC.SS ---
Resident seen by DDS for full mouth x-rays, unable to participate in x-ray process. Resident to continue to be seen by DDS for routine dental exams.
[2024-10-12] MEDS: PROPRANOLOL 20 MG TABLET GT (21:03)
[2024-10-13] VITALS (10 sets, daily range): BP systolic 96–119; BP diastolic 58–81; PULSE 55–72; RESP 18–21; TEMP 36.1–36.6; O2SAT 94–97
[2024-10-13] MEDS: PROPRANOLOL 20 MG TABLET GT ×2 (05:38→13:33)
[2024-10-13] MEDS: DEX/HYPRO/GLY ARTIFICAL TEARS 225 DROP/15 ML BTL BOTH EYES ×2 (08:47→21:11)
[2024-10-13] MEDS: SENNOSIDES 8.6 MG TABLET GT ×2 (08:48→21:12)
[2024-10-13] MEDS: MULTIVITAMIN W MINERALS 1 EACH TABLET GT (08:48)
[2024-10-13] MEDS: LOSARTAN 25 MG TABLET GT (08:48)
[2024-10-13] MEDS: FISH OIL 1200 MG GT (08:49)
[2024-10-13] MEDS: DEXLANSOPRAZOLE 30 MG PO (08:49)
--- NOTE | 2024-10-13 16:46 | PD.SAPROG ---
Progress Note - SubAcute DIAGNOSIS (1) Traumatic brain injury: Status: Chronic (2) Anoxic brain damage, not elsewhere classified: Status: Chronic (3) Tracheostomy status: Status: Chronic (4) Gastrostomy status: Status: Chronic (5) Chronic respiratory failure: Status: Chronic SUBJECTIVE Fever:: none GI:: none Shortness of Breath:: none GI:: no complaints Pain:: none OBJECTIVE Most recent vital signs: Last Vital Signs Temp 97.8 F 10/13/24 06:00 Pulse 68 10/13/24 13:33 Resp 19 10/13/24 07:26 BP 103/68 10/13/24 13:33 Pulse Ox 94 L 10/13/24 07:26 O2 Del Method Blow-by 10/12/24 17:44 O2 Flow Rate 10 10/13/24 07:26 FiO2 35 10/13/24 07:26 Neurological:: awake Speech:: none Answers questions:: sometimes (Sometimes opens eyes to command.) Respiratory:: lungs clear Cardiovascular: RRR Abdomen: soft and nontender Extremities:: deformities Decubitus:: none Tracheostomy:: to blow by Feeding per:: G tube Complaints:: none ASSESSMENT & PLAN Assessment: Stable status. No improvement in cognitive function. Diagnosis and treatment reviewed. Prognosis remains poor. No evident pain issues.Comfort objective being achieved. Plan: Current treatment continued as ongoing
[2024-10-14] VITALS (10 sets, daily range): BP systolic 93–110; BP diastolic 55–72; PULSE 51–79; RESP 17–19; TEMP 36.1; O2SAT 95–98
[2024-10-14] MEDS: PROPRANOLOL 20 MG TABLET GT ×2 (05:31→14:21)
[2024-10-14] MEDS: DEX/HYPRO/GLY ARTIFICAL TEARS 225 DROP/15 ML BTL BOTH EYES ×2 (08:18→20:34)
[2024-10-14] MEDS: DEXLANSOPRAZOLE 30 MG PO (08:19)
[2024-10-14] MEDS: FISH OIL 1200 MG GT (08:19)
[2024-10-14] MEDS: LOSARTAN 25 MG TABLET GT (08:19)
[2024-10-14] MEDS: SENNOSIDES 8.6 MG TABLET GT ×2 (08:20→20:34)
[2024-10-14] MEDS: MULTIVITAMIN W MINERALS 1 EACH TABLET GT (08:20)
[2024-10-15] VITALS (10 sets, daily range): BP systolic 94–124; BP diastolic 60–79; PULSE 56–86; RESP 17–21; TEMP 36.1–36.4; O2SAT 95–99
[2024-10-15] MEDS: PROPRANOLOL 20 MG TABLET GT ×2 (05:18→21:15)
[2024-10-15] MEDS: DEXLANSOPRAZOLE 30 MG PO (08:30)
[2024-10-15] MEDS: FISH OIL 1200 MG GT (08:30)
[2024-10-15] MEDS: DEX/HYPRO/GLY ARTIFICAL TEARS 225 DROP/15 ML BTL BOTH EYES ×2 (08:30→20:35)
[2024-10-15] MEDS: MULTIVITAMIN W MINERALS 1 EACH TABLET GT (08:31)
[2024-10-15] MEDS: SENNOSIDES 8.6 MG TABLET GT ×2 (08:32→20:35)
[2024-10-16] VITALS (9 sets, daily range): BP systolic 90–109; BP diastolic 54–69; PULSE 53–81; RESP 18–20; TEMP 36.2–36.5; O2SAT 95–99
[2024-10-16] MEDS: PROPRANOLOL 20 MG TABLET GT ×2 (05:31→14:26)
[2024-10-16] MEDS: DEX/HYPRO/GLY ARTIFICAL TEARS 225 DROP/15 ML BTL BOTH EYES ×2 (09:00→20:21)
[2024-10-16] MEDS: FISH OIL 1200 MG GT (09:00)
[2024-10-16] MEDS: DEXLANSOPRAZOLE 30 MG PO (09:00)
[2024-10-16] MEDS: SENNOSIDES 8.6 MG TABLET GT ×2 (09:00→20:21)
[2024-10-16] MEDS: MULTIVITAMIN W MINERALS 1 EACH TABLET GT (09:00)
[2024-10-17] VITALS (10 sets, daily range): BP systolic 100–118; BP diastolic 62–73; PULSE 65–80; RESP 18–20; TEMP 36.2–36.5; O2SAT 92–96
[2024-10-17] MEDS: PROPRANOLOL 20 MG TABLET GT ×3 (05:06→21:29)
[2024-10-17] MEDS: DEX/HYPRO/GLY ARTIFICAL TEARS 225 DROP/15 ML BTL BOTH EYES ×2 (08:05→20:37)
[2024-10-17] MEDS: DEXLANSOPRAZOLE 30 MG PO (08:05)
[2024-10-17] MEDS: MULTIVITAMIN W MINERALS 1 EACH TABLET GT (08:06)
[2024-10-17] MEDS: FISH OIL 1200 MG GT (08:06)
[2024-10-17] MEDS: SENNOSIDES 8.6 MG TABLET GT ×2 (08:06→20:37)
[2024-10-17] MEDS: BISACODYL 10 MG SUPP.RECT PR (11:31)
--- NOTE | 2024-10-17 19:27 | PD.SAPROG ---
Progress Note - SubAcute DIAGNOSIS (1) Traumatic brain injury: Status: Chronic (2) Anoxic brain damage, not elsewhere classified: Status: Chronic (3) Tracheostomy status: Status: Chronic (4) Gastrostomy status: Status: Chronic (5) Chronic respiratory failure: Status: Chronic SUBJECTIVE Fever:: none GI:: none Shortness of Breath:: none GI:: no complaints Pain:: none OBJECTIVE Most recent vital signs: Last Vital Signs Temp 97.1 F 10/17/24 17:48 Pulse 79 10/17/24 17:48 Resp 18 10/17/24 17:48 BP 100/63 10/17/24 17:48 Pulse Ox 95 10/17/24 17:48 O2 Del Method Blow-by 10/17/24 17:48 O2 Flow Rate 10 10/17/24 16:25 FiO2 35 10/17/24 16:25 Neurological:: awake Speech:: none Answers questions:: sometimes (Sometimes opens eyes to command.) Respiratory:: lungs clear Cardiovascular: RRR Abdomen: soft and nontender Extremities:: deformities Decubitus:: none Tracheostomy:: to blow by Feeding per:: G tube Complaints:: none ASSESSMENT & PLAN Assessment: Stable status. No improvement in cognitive function. Diagnosis and treatment reviewed. Prognosis remains poor. No evident pain issues.Comfort objective being achieved. Plan: Current treatment continued as ongoing
[2024-10-18] VITALS (11 sets, daily range): BP systolic 94–112; BP diastolic 55–73; PULSE 50–84; RESP 16–20; TEMP 36.3–36.5; O2SAT 95–99
[2024-10-18] MEDS: PROPRANOLOL 20 MG TABLET GT (05:02)
[2024-10-18] MEDS: LOSARTAN 25 MG TABLET GT (08:15)
[2024-10-18] MEDS: MULTIVITAMIN W MINERALS 1 EACH TABLET GT (08:15)
[2024-10-18] MEDS: DEXLANSOPRAZOLE 30 MG PO (08:15)
[2024-10-18] MEDS: FISH OIL 1200 MG GT (08:15)
[2024-10-18] MEDS: DEX/HYPRO/GLY ARTIFICAL TEARS 225 DROP/15 ML BTL BOTH EYES ×2 (08:15→21:01)
[2024-10-18] MEDS: SENNOSIDES 8.6 MG TABLET GT ×2 (08:16→21:01)
[2024-10-19] VITALS (10 sets, daily range): BP systolic 98–126; BP diastolic 58–82; PULSE 60–81; RESP 17–18; TEMP 36–36.4; O2SAT 96–99
[2024-10-19] MEDS: PROPRANOLOL 20 MG TABLET GT ×2 (05:35→14:15)
[2024-10-19] MEDS: FISH OIL 1200 MG GT (09:40)
[2024-10-19] MEDS: DEXLANSOPRAZOLE 30 MG PO (09:40)
[2024-10-19] MEDS: DEX/HYPRO/GLY ARTIFICAL TEARS 225 DROP/15 ML BTL BOTH EYES ×2 (09:40→21:08)
[2024-10-19] MEDS: SENNOSIDES 8.6 MG TABLET GT ×2 (09:41→21:08)
[2024-10-19] MEDS: MULTIVITAMIN W MINERALS 1 EACH TABLET GT (09:41)
[2024-10-19] MEDS: LOSARTAN 25 MG TABLET GT (09:41)
[2024-10-20] VITALS (9 sets, daily range): BP systolic 95–132; BP diastolic 63–88; PULSE 58–96; RESP 16–18; TEMP 36.5–36.6; O2SAT 96–100
[2024-10-20] MEDS: DEXLANSOPRAZOLE 30 MG PO (09:06)
[2024-10-20] MEDS: DEX/HYPRO/GLY ARTIFICAL TEARS 225 DROP/15 ML BTL BOTH EYES ×2 (09:06→20:28)
[2024-10-20] MEDS: MULTIVITAMIN W MINERALS 1 EACH TABLET GT (09:07)
[2024-10-20] MEDS: LOSARTAN 25 MG TABLET GT (09:07)
[2024-10-20] MEDS: SENNOSIDES 8.6 MG TABLET GT ×2 (09:07→20:28)
[2024-10-20] MEDS: FISH OIL 1200 MG GT (09:07)
[2024-10-20] MEDS: MAGNESIUM HYDROXIDE 30 ML ORAL SUSP ML GT (09:08)
[2024-10-20] MEDS: PROPRANOLOL 20 MG TABLET GT (14:03)
[2024-10-21] VITALS (10 sets, daily range): BP systolic 86–122; BP diastolic 57–77; PULSE 63–85; RESP 18–20; TEMP 36.4–36.6; O2SAT 96–98
[2024-10-21] MEDS: PROPRANOLOL 20 MG TABLET GT (05:28)
[2024-10-21] MEDS: DEXLANSOPRAZOLE 30 MG PO (08:05)
[2024-10-21] MEDS: LOSARTAN 25 MG TABLET GT (08:05)
[2024-10-21] MEDS: MULTIVITAMIN W MINERALS 1 EACH TABLET GT (08:05)
[2024-10-21] MEDS: FISH OIL 1200 MG GT (08:05)
[2024-10-21] MEDS: DEX/HYPRO/GLY ARTIFICAL TEARS 225 DROP/15 ML BTL BOTH EYES ×2 (08:05→21:59)
[2024-10-21] MEDS: SENNOSIDES 8.6 MG TABLET GT ×2 (08:06→21:59)
--- NOTE | 2024-10-21 20:41 | PD.SAPROG ---
Progress Note - SubAcute DIAGNOSIS (1) Traumatic brain injury: Status: Chronic (2) Anoxic brain damage, not elsewhere classified: Status: Chronic (3) Tracheostomy status: Status: Chronic (4) Gastrostomy status: Status: Chronic (5) Chronic respiratory failure: Status: Chronic SUBJECTIVE Fever:: none GI:: none Shortness of Breath:: none GI:: no complaints Pain:: none OBJECTIVE Most recent vital signs: Last Vital Signs Temp 97.6 F 10/21/24 17:50 Pulse 76 10/21/24 17:50 Resp 18 10/21/24 17:50 BP 122/74 10/21/24 17:50 Pulse Ox 96 10/21/24 17:50 O2 Del Method Blow-by 10/21/24 17:50 O2 Flow Rate 10 10/21/24 09:00 FiO2 35 10/21/24 09:00 Neurological:: awake Speech:: none Answers questions:: sometimes (Sometimes opens eyes to command.) Respiratory:: lungs clear Cardiovascular: RRR Abdomen: soft and nontender Extremities:: deformities Decubitus:: none Tracheostomy:: to blow by Feeding per:: G tube Complaints:: none ASSESSMENT & PLAN Assessment: Stable status. No improvement in cognitive function. Diagnosis and treatment reviewed. Prognosis remains poor. No evident pain issues.Comfort objective being achieved. Plan: Current treatment continued as ongoing
[2024-10-22] VITALS (9 sets, daily range): BP systolic 87–138; BP diastolic 60–78; PULSE 63–82; RESP 18–20; TEMP 36.3–36.8; O2SAT 92–99
[2024-10-22] MEDS: DEXLANSOPRAZOLE 30 MG PO (08:12)
[2024-10-22] MEDS: FISH OIL 1200 MG GT (08:12)
[2024-10-22] MEDS: DEX/HYPRO/GLY ARTIFICAL TEARS 225 DROP/15 ML BTL BOTH EYES ×2 (08:12→20:57)
[2024-10-22] MEDS: SENNOSIDES 8.6 MG TABLET GT ×2 (08:13→20:57)
[2024-10-22] MEDS: MULTIVITAMIN W MINERALS 1 EACH TABLET GT (08:13)
[2024-10-22] MEDS: LOSARTAN 25 MG TABLET GT (08:13)
[2024-10-22] MEDS: PROPRANOLOL 20 MG TABLET GT (14:28)
[2024-10-23] VITALS (11 sets, daily range): BP systolic 108–129; BP diastolic 71–82; PULSE 54–92; RESP 16–20; TEMP 36.1–36.5; O2SAT 93–99
[2024-10-23] MEDS: PROPRANOLOL 20 MG TABLET GT ×2 (05:13→13:39)
[2024-10-23] MEDS: DEX/HYPRO/GLY ARTIFICAL TEARS 225 DROP/15 ML BTL BOTH EYES ×2 (09:19→21:24)
[2024-10-23] MEDS: DEXLANSOPRAZOLE 30 MG PO (09:20)
[2024-10-23] MEDS: MULTIVITAMIN W MINERALS 1 EACH TABLET GT (09:20)
[2024-10-23] MEDS: FISH OIL 1200 MG GT (09:20)
[2024-10-23] MEDS: SENNOSIDES 8.6 MG TABLET GT ×2 (09:20→21:24)
[2024-10-23] MEDS: LOSARTAN 25 MG TABLET GT (09:20)
--- NOTE | 2024-10-23 12:21 | PC.SS ---
Room visit: Resident is laying in bed with head of the bed elevated with call light properly placed with no signs of distress. Resident is non verbal and is represented by his daughter Arlene Hinds. Resident has no changes in care or condition he remains on blow by with trach in place and GT for medication and nutrition. He will remain in current care and will have all subacute care needs met by staff. This SSD will continue to make daily contact with resident and monitor for changes in mood and behavior.
[2024-10-24] VITALS (10 sets, daily range): BP systolic 92–132; BP diastolic 59–78; PULSE 53–81; RESP 17–20; TEMP 36.2–36.4; O2SAT 95–99
[2024-10-24] MEDS: PROPRANOLOL 20 MG TABLET GT (05:26)
[2024-10-24] MEDS: DEX/HYPRO/GLY ARTIFICAL TEARS 225 DROP/15 ML BTL BOTH EYES ×2 (08:35→20:27)
[2024-10-24] MEDS: LOSARTAN 25 MG TABLET GT (08:35)
[2024-10-24] MEDS: MULTIVITAMIN W MINERALS 1 EACH TABLET GT (08:35)
[2024-10-24] MEDS: FISH OIL 1200 MG GT (08:35)
[2024-10-24] MEDS: SENNOSIDES 8.6 MG TABLET GT ×2 (08:35→20:27)
[2024-10-24] MEDS: DEXLANSOPRAZOLE 30 MG PO (08:35)
[2024-10-24] MEDS: MAGNESIUM HYDROXIDE 30 ML ORAL SUSP ML GT (14:05)
--- NOTE | 2024-10-24 16:03 | PC.NURSE ---
Late entry for 10/23/24 Dr Ham made rounds, no new orders made.
[2024-10-25] VITALS (11 sets, daily range): BP systolic 100–117; BP diastolic 61–76; PULSE 60–85; RESP 17–18; TEMP 36.1–36.4; O2SAT 96–98
[2024-10-25] MEDS: PROPRANOLOL 20 MG TABLET GT ×3 (05:22→21:10)
[2024-10-25] MEDS: DEX/HYPRO/GLY ARTIFICAL TEARS 225 DROP/15 ML BTL BOTH EYES ×2 (08:47→20:37)
[2024-10-25] MEDS: FISH OIL 1200 MG GT (08:48)
[2024-10-25] MEDS: DEXLANSOPRAZOLE 30 MG PO (08:48)
[2024-10-25] MEDS: SENNOSIDES 8.6 MG TABLET GT ×2 (08:49→20:38)
[2024-10-25] MEDS: MULTIVITAMIN W MINERALS 1 EACH TABLET GT (08:49)
--- NOTE | 2024-10-25 09:44 | PD.SAPROG ---
Progress Note - SubAcute DIAGNOSIS (1) Traumatic brain injury: Status: Chronic (2) Anoxic brain damage, not elsewhere classified: Status: Chronic (3) Tracheostomy status: Status: Chronic (4) Gastrostomy status: Status: Chronic (5) Chronic respiratory failure: Status: Chronic SUBJECTIVE Fever:: none GI:: none Shortness of Breath:: none GI:: no complaints Pain:: none OBJECTIVE Most recent vital signs: Last Vital Signs Temp 97.1 F 10/25/24 06:00 Pulse 65 10/25/24 08:48 Resp 18 10/25/24 07:20 BP 104/69 10/25/24 08:48 Pulse Ox 96 10/25/24 07:20 O2 Del Method Blow-by 10/24/24 05:46 O2 Flow Rate 10 10/25/24 07:20 FiO2 35 10/25/24 07:20 Neurological:: awake Speech:: none Answers questions:: sometimes (Sometimes opens eyes to command.) Respiratory:: lungs clear Cardiovascular: RRR Abdomen: soft and nontender Extremities:: deformities Decubitus:: none Tracheostomy:: to blow by Feeding per:: G tube Complaints:: none ASSESSMENT & PLAN Assessment: Stable status. No improvement in cognitive function. Diagnosis and treatment reviewed. Prognosis remains poor. No evident pain issues.Comfort objective being achieved. Plan: Current treatment continued as ongoing
[2024-10-26] VITALS (10 sets, daily range): BP systolic 100–146; BP diastolic 63–80; PULSE 58–86; RESP 18–71; TEMP 36.3–36.4; O2SAT 95–98; BMI 24.9
[2024-10-26] MEDS: DEX/HYPRO/GLY ARTIFICAL TEARS 225 DROP/15 ML BTL BOTH EYES ×2 (09:15→21:04)
[2024-10-26] MEDS: FISH OIL 1200 MG GT (09:15)
[2024-10-26] MEDS: DEXLANSOPRAZOLE 30 MG PO (09:15)
[2024-10-26] MEDS: LOSARTAN 25 MG TABLET GT (09:15)
[2024-10-26] MEDS: MULTIVITAMIN W MINERALS 1 EACH TABLET GT (09:17)
[2024-10-26] MEDS: SENNOSIDES 8.6 MG TABLET GT ×2 (09:17→21:04)
[2024-10-26] MEDS: PROPRANOLOL 20 MG TABLET GT ×2 (13:09→21:04)
[2024-10-27] VITALS (10 sets, daily range): BP systolic 97–129; BP diastolic 63–71; PULSE 55–82; RESP 18–22; TEMP 36.3–36.5; O2SAT 96–99
[2024-10-27] MEDS: DEX/HYPRO/GLY ARTIFICAL TEARS 225 DROP/15 ML BTL BOTH EYES ×2 (08:09→20:31)
[2024-10-27] MEDS: DEXLANSOPRAZOLE 30 MG PO (08:09)
[2024-10-27] MEDS: FISH OIL 1200 MG GT (08:09)
[2024-10-27] MEDS: MULTIVITAMIN W MINERALS 1 EACH TABLET GT (08:10)
[2024-10-27] MEDS: SENNOSIDES 8.6 MG TABLET GT ×2 (08:10→20:32)
[2024-10-27] MEDS: PROPRANOLOL 20 MG TABLET GT (13:19)
[2024-10-28] VITALS (11 sets, daily range): BP systolic 93–125; BP diastolic 61–74; PULSE 49–78; RESP 16–70; TEMP 36.2–36.7; O2SAT 97–98
[2024-10-28] MEDS: PROPRANOLOL 20 MG TABLET GT ×2 (05:05→14:15)
[2024-10-28] MEDS: DEXLANSOPRAZOLE 30 MG PO (08:49)
[2024-10-28] MEDS: FISH OIL 1200 MG GT (08:49)
[2024-10-28] MEDS: DEX/HYPRO/GLY ARTIFICAL TEARS 225 DROP/15 ML BTL BOTH EYES ×2 (08:49→20:31)
[2024-10-28] MEDS: MULTIVITAMIN W MINERALS 1 EACH TABLET GT (08:50)
[2024-10-28] MEDS: SENNOSIDES 8.6 MG TABLET GT ×2 (08:50→20:31)
[2024-10-29] VITALS (12 sets, daily range): BP systolic 91–133; BP diastolic 59–77; PULSE 54–87; RESP 16–20; TEMP 36.3–36.6; O2SAT 94–97
[2024-10-29] MEDS: PROPRANOLOL 20 MG TABLET GT (05:09)
[2024-10-29] MEDS: DEX/HYPRO/GLY ARTIFICAL TEARS 225 DROP/15 ML BTL BOTH EYES ×2 (08:09→21:04)
[2024-10-29] MEDS: MULTIVITAMIN W MINERALS 1 EACH TABLET GT (08:10)
[2024-10-29] MEDS: SENNOSIDES 8.6 MG TABLET GT ×2 (08:10→21:05)
[2024-10-29] MEDS: DEXLANSOPRAZOLE 30 MG PO (08:11)
[2024-10-29] MEDS: FISH OIL 1200 MG GT (08:11)
--- NOTE | 2024-10-29 15:28 | PD.SAPROG ---
Progress Note - SubAcute DIAGNOSIS (1) Traumatic brain injury: Status: Chronic (2) Anoxic brain damage, not elsewhere classified: Status: Chronic (3) Tracheostomy status: Status: Chronic (4) Gastrostomy status: Status: Chronic (5) Chronic respiratory failure: Status: Chronic SUBJECTIVE Fever:: none GI:: none Shortness of Breath:: none GI:: no complaints Pain:: none OBJECTIVE Most recent vital signs: Last Vital Signs Temp 97.3 F 10/29/24 12:00 Pulse 66 10/29/24 12:00 Resp 18 10/29/24 12:00 BP 107/69 10/29/24 12:00 Pulse Ox 97 10/29/24 09:00 O2 Del Method Blow-by 10/29/24 05:29 O2 Flow Rate 10 10/29/24 09:00 FiO2 35 10/29/24 09:00 Neurological:: awake Speech:: none Answers questions:: sometimes (Sometimes opens eyes to command.) Respiratory:: lungs clear Cardiovascular: RRR Abdomen: soft and nontender Extremities:: deformities Decubitus:: none Tracheostomy:: to blow by Feeding per:: G tube Complaints:: none ASSESSMENT & PLAN Assessment: Stable status. No improvement in cognitive function. Diagnosis and treatment reviewed. Prognosis remains poor. No evident pain issues.Comfort objective being achieved.VSS Plan: Current treatment continued as ongoing
[2024-10-30] VITALS (9 sets, daily range): BP systolic 90–116; BP diastolic 55–71; PULSE 58–83; RESP 16–20; TEMP 36.4–36.8; O2SAT 96–99
[2024-10-30] MEDS: DEX/HYPRO/GLY ARTIFICAL TEARS 225 DROP/15 ML BTL BOTH EYES ×2 (08:09→20:49)
[2024-10-30] MEDS: FISH OIL 1200 MG GT (08:09)
[2024-10-30] MEDS: LOSARTAN 25 MG TABLET GT (08:09)
[2024-10-30] MEDS: MULTIVITAMIN W MINERALS 1 EACH TABLET GT (08:09)
[2024-10-30] MEDS: DEXLANSOPRAZOLE 30 MG PO (08:09)
[2024-10-30] MEDS: SENNOSIDES 8.6 MG TABLET GT ×2 (08:09→20:49)
[2024-10-31] VITALS (7 sets, daily range): BP systolic 90–98; BP diastolic 58–63; PULSE 56–84; RESP 18; TEMP 36.3; O2SAT 96–98
[2024-10-31] MEDS: DEX/HYPRO/GLY ARTIFICAL TEARS 225 DROP/15 ML BTL BOTH EYES ×2 (09:51→20:14)
[2024-10-31] MEDS: FISH OIL 1200 MG GT (09:51)
[2024-10-31] MEDS: DEXLANSOPRAZOLE 30 MG PO (09:51)
[2024-10-31] MEDS: MULTIVITAMIN W MINERALS 1 EACH TABLET GT (09:52)
[2024-10-31] MEDS: SENNOSIDES 8.6 MG TABLET GT ×2 (09:52→20:14)
[2024-11-01] VITALS (10 sets, daily range): BP systolic 96–143; BP diastolic 64–83; PULSE 57–81; RESP 18–20; TEMP 36.1–36.4; O2SAT 94–98
[2024-11-01] MEDS: PROPRANOLOL 20 MG TABLET GT ×2 (05:21→21:36)
[2024-11-01] MEDS: DEX/HYPRO/GLY ARTIFICAL TEARS 225 DROP/15 ML BTL BOTH EYES ×2 (08:58→21:35)
[2024-11-01] MEDS: FISH OIL 1200 MG GT (08:58)
[2024-11-01] MEDS: DEXLANSOPRAZOLE 30 MG PO (08:58)
[2024-11-01] MEDS: SENNOSIDES 8.6 MG TABLET GT ×2 (08:59→21:35)
[2024-11-01] MEDS: MULTIVITAMIN W MINERALS 1 EACH TABLET GT (08:59)
[2024-11-01] MEDS: ACETAMINOPHEN 325 MG TABLET 650 MG GT (21:10)
[2024-11-02] VITALS (11 sets, daily range): BP systolic 94–115; BP diastolic 57–69; PULSE 52–81; RESP 18–71; TEMP 36.1–36.5; O2SAT 97–99
[2024-11-02] MEDS: DEXLANSOPRAZOLE 30 MG PO (08:52)
[2024-11-02] MEDS: LOSARTAN 25 MG TABLET GT (08:52)
[2024-11-02] MEDS: CARBAMIDE PEROXIDE OTIC SOL 15 ML BTL 5 DROP BOTH EARS ×2 (08:52→21:26)
[2024-11-02] MEDS: DEX/HYPRO/GLY ARTIFICAL TEARS 225 DROP/15 ML BTL BOTH EYES ×2 (08:52→21:26)
[2024-11-02] MEDS: FISH OIL 1200 MG GT (08:52)
[2024-11-02] MEDS: MULTIVITAMIN W MINERALS 1 EACH TABLET GT (09:42)
[2024-11-02] MEDS: SENNOSIDES 8.6 MG TABLET GT ×2 (09:43→21:26)
[2024-11-02] MEDS: PROPRANOLOL 20 MG TABLET GT ×2 (13:39→21:26)
--- NOTE | 2024-11-02 22:27 | PD.SAPROG ---
Progress Note - SubAcute DIAGNOSIS (1) Traumatic brain injury: Status: Chronic (2) Anoxic brain damage, not elsewhere classified: Status: Chronic (3) Tracheostomy status: Status: Chronic (4) Gastrostomy status: Status: Chronic (5) Chronic respiratory failure: Status: Chronic SUBJECTIVE Fever:: none GI:: none Shortness of Breath:: none GI:: no complaints Pain:: none OBJECTIVE Most recent vital signs: Last Vital Signs Temp 97.7 F 11/02/24 17:27 Pulse 68 11/02/24 21:26 Resp 18 11/02/24 17:27 BP 112/68 11/02/24 21:26 Pulse Ox 98 11/02/24 17:27 O2 Del Method Blow-by 11/02/24 17:27 O2 Flow Rate 10 11/02/24 09:00 FiO2 35 11/02/24 09:00 Neurological:: awake Speech:: none Answers questions:: sometimes (Sometimes opens eyes to command.) Respiratory:: lungs clear Cardiovascular: RRR Abdomen: soft and nontender Extremities:: deformities Decubitus:: none Tracheostomy:: to blow by Feeding per:: G tube Complaints:: none ASSESSMENT & PLAN Assessment: Stable status. No improvement in cognitive function. Diagnosis and treatment reviewed. Prognosis remains poor. No evident pain issues.Comfort objective being achieved.VSS Plan: Current treatment continued as ongoing
[2024-11-03] VITALS (11 sets, daily range): BP systolic 93–117; BP diastolic 58–71; PULSE 54–76; RESP 16–18; TEMP 36.1–36.7; O2SAT 98–99
[2024-11-03] MEDS: CARBAMIDE PEROXIDE OTIC SOL 15 ML BTL 5 DROP BOTH EARS ×2 (08:59→20:30)
[2024-11-03] MEDS: DEX/HYPRO/GLY ARTIFICAL TEARS 225 DROP/15 ML BTL BOTH EYES ×2 (08:59→20:30)
[2024-11-03] MEDS: DEXLANSOPRAZOLE 30 MG PO (09:00)
[2024-11-03] MEDS: FISH OIL 1200 MG GT (09:00)
[2024-11-03] MEDS: MULTIVITAMIN W MINERALS 1 EACH TABLET GT (09:01)
[2024-11-03] MEDS: LOSARTAN 25 MG TABLET GT (09:01)
[2024-11-03] MEDS: SENNOSIDES 8.6 MG TABLET GT ×2 (09:01→20:30)
[2024-11-04] VITALS (9 sets, daily range): BP systolic 93–114; BP diastolic 59–70; PULSE 56–77; RESP 16–60; TEMP 36.2–37; O2SAT 95–98
[2024-11-04] MEDS: MAGNESIUM HYDROXIDE 30 ML ORAL SUSP ML GT (05:55)
[2024-11-04] MEDS: DEX/HYPRO/GLY ARTIFICAL TEARS 225 DROP/15 ML BTL BOTH EYES ×2 (08:11→21:22)
[2024-11-04] MEDS: CARBAMIDE PEROXIDE OTIC SOL 15 ML BTL 5 DROP BOTH EARS ×2 (08:11→21:22)
[2024-11-04] MEDS: DEXLANSOPRAZOLE 30 MG PO (08:12)
[2024-11-04] MEDS: FISH OIL 1200 MG GT (08:12)
[2024-11-04] MEDS: SENNOSIDES 8.6 MG TABLET GT ×2 (08:13→21:22)
[2024-11-04] MEDS: MULTIVITAMIN W MINERALS 1 EACH TABLET GT (08:13)
[2024-11-04] MEDS: PROPRANOLOL 20 MG TABLET GT (13:49)
[2024-11-04] MEDS: BISACODYL 10 MG SUPP.RECT PR (23:00)
[2024-11-05] VITALS (9 sets, daily range): BP systolic 105–134; BP diastolic 61–85; PULSE 58–70; RESP 18–75; TEMP 36.2–36.3; O2SAT 94–97
[2024-11-05] MEDS: CARBAMIDE PEROXIDE OTIC SOL 15 ML BTL 5 DROP BOTH EARS ×2 (09:14→20:29)
[2024-11-05] MEDS: LOSARTAN 25 MG TABLET GT (09:15)
[2024-11-05] MEDS: FISH OIL 1200 MG GT (09:15)
[2024-11-05] MEDS: DEX/HYPRO/GLY ARTIFICAL TEARS 225 DROP/15 ML BTL BOTH EYES ×2 (09:15→20:29)
[2024-11-05] MEDS: DEXLANSOPRAZOLE 30 MG PO (09:15)
[2024-11-05] MEDS: SENNOSIDES 8.6 MG TABLET GT ×2 (09:15→20:29)
[2024-11-05] MEDS: MULTIVITAMIN W MINERALS 1 EACH TABLET GT (09:15)
[2024-11-05] MEDS: PROPRANOLOL 20 MG TABLET GT (14:15)
[2024-11-06 05:26] VITALS: BP 112/77; PULSE 86
[2024-11-06] MEDS: PROPRANOLOL 20 MG TABLET GT ×2 (05:26→13:33)
[2024-11-06 06:30] VITALS: PULSE 65; RESP 20; O2SAT 98
[2024-11-06 08:03] VITALS: BP 119/71; PULSE 58
[2024-11-06] MEDS: SENNOSIDES 8.6 MG TABLET GT ×2 (08:03→21:16)
[2024-11-06] MEDS: DEXLANSOPRAZOLE 30 MG PO (08:03)
[2024-11-06] MEDS: MULTIVITAMIN W MINERALS 1 EACH TABLET GT (08:03)
[2024-11-06] MEDS: FISH OIL 1200 MG GT (08:03)
[2024-11-06] MEDS: DEX/HYPRO/GLY ARTIFICAL TEARS 225 DROP/15 ML BTL BOTH EYES ×2 (08:03→21:16)
[2024-11-06] MEDS: LOSARTAN 25 MG TABLET GT (08:03)
[2024-11-06 13:33] VITALS: BP 113/72; PULSE 73
--- NOTE | 2024-11-06 17:26 | PC.NURSE ---
Seen by Dr Ham, no new orders made.
[2024-11-06 19:35] VITALS: PULSE 70; RESP 20; O2SAT 97
--- NOTE | 2024-11-06 21:03 | PD.SAPROG ---
Progress Note - SubAcute DIAGNOSIS (1) Traumatic brain injury: Status: Chronic (2) Anoxic brain damage, not elsewhere classified: Status: Chronic (3) Tracheostomy status: Status: Chronic (4) Gastrostomy status: Status: Chronic (5) Chronic respiratory failure: Status: Chronic SUBJECTIVE Fever:: none GI:: none Shortness of Breath:: none GI:: no complaints Pain:: none OBJECTIVE Most recent vital signs: Last Vital Signs Temp 97.1 F 11/05/24 23:54 Pulse 73 11/06/24 13:33 Resp 20 11/06/24 06:30 BP 113/72 11/06/24 13:33 Pulse Ox 98 11/06/24 06:30 O2 Del Method Blow-by 11/04/24 18:00 O2 Flow Rate 10 11/06/24 06:30 FiO2 35 11/06/24 06:30 Neurological:: awake Speech:: none Answers questions:: sometimes (Sometimes opens eyes to command.) Respiratory:: lungs clear Cardiovascular: RRR Abdomen: soft and nontender Extremities:: deformities Decubitus:: none Tracheostomy:: to blow by Feeding per:: G tube Complaints:: none ASSESSMENT & PLAN Assessment: Stable status. No improvement in cognitive function. Diagnosis and treatment reviewed. Prognosis remains poor. No evident pain issues.Comfort objective being achieved.VSS Plan: Current treatment continued as ongoing
[2024-11-06 21:16] VITALS: BP 111/64; PULSE 57
[2024-11-07] VITALS (11 sets, daily range): BP systolic 90–116; BP diastolic 62–80; PULSE 54–74; RESP 16–20; TEMP 36.3–36.5; O2SAT 96–99
[2024-11-07] MEDS: PROPRANOLOL 20 MG TABLET GT ×3 (05:36→21:26)
[2024-11-07] MEDS: DEX/HYPRO/GLY ARTIFICAL TEARS 225 DROP/15 ML BTL BOTH EYES ×2 (08:41→20:45)
[2024-11-07] MEDS: DEXLANSOPRAZOLE 30 MG PO (08:41)
[2024-11-07] MEDS: FISH OIL 1200 MG GT (08:41)
[2024-11-07] MEDS: MULTIVITAMIN W MINERALS 1 EACH TABLET GT (08:42)
[2024-11-07] MEDS: SENNOSIDES 8.6 MG TABLET GT ×2 (08:42→20:45)
[2024-11-07] MEDS: ACETAMINOPHEN 325 MG TABLET 650 MG GT (20:47)
[2024-11-08] VITALS (9 sets, daily range): BP systolic 97–116; BP diastolic 61–73; PULSE 51–69; RESP 16–20; TEMP 36.2–36.4; O2SAT 95–98
[2024-11-08] MEDS: PROPRANOLOL 20 MG TABLET GT (05:22)
[2024-11-08] MEDS: DEX/HYPRO/GLY ARTIFICAL TEARS 225 DROP/15 ML BTL BOTH EYES ×2 (08:44→21:04)
[2024-11-08] MEDS: DEXLANSOPRAZOLE 30 MG PO (08:44)
[2024-11-08] MEDS: MULTIVITAMIN W MINERALS 1 EACH TABLET GT (08:45)
[2024-11-08] MEDS: SENNOSIDES 8.6 MG TABLET GT ×2 (08:45→21:04)
[2024-11-08] MEDS: FISH OIL 1200 MG GT (08:45)
[2024-11-08] MEDS: LOSARTAN 25 MG TABLET GT (08:45)
[2024-11-08] MEDS: MAGNESIUM HYDROXIDE 30 ML ORAL SUSP ML GT (21:05)
[2024-11-09] VITALS (10 sets, daily range): BP systolic 101–112; BP diastolic 64–73; PULSE 55–78; RESP 16–20; TEMP 36.3–36.8; O2SAT 96–98; BMI 24.9
[2024-11-09] MEDS: PROPRANOLOL 20 MG TABLET GT ×2 (05:26→21:50)
[2024-11-09] MEDS: DEX/HYPRO/GLY ARTIFICAL TEARS 225 DROP/15 ML BTL BOTH EYES ×2 (08:59→20:47)
[2024-11-09] MEDS: DEXLANSOPRAZOLE 30 MG PO (08:59)
[2024-11-09] MEDS: FISH OIL 1200 MG GT (08:59)
[2024-11-09] MEDS: MULTIVITAMIN W MINERALS 1 EACH TABLET GT (09:00)
[2024-11-09] MEDS: SENNOSIDES 8.6 MG TABLET GT ×2 (09:01→20:47)
[2024-11-10] VITALS (8 sets, daily range): BP systolic 94–125; BP diastolic 57–73; PULSE 53–86; RESP 17–20; TEMP 36.1–36.4; O2SAT 98
[2024-11-10] MEDS: DEXLANSOPRAZOLE 30 MG PO (08:13)
[2024-11-10] MEDS: DEX/HYPRO/GLY ARTIFICAL TEARS 225 DROP/15 ML BTL BOTH EYES ×2 (08:13→20:49)
[2024-11-10] MEDS: MULTIVITAMIN W MINERALS 1 EACH TABLET GT (08:14)
[2024-11-10] MEDS: FISH OIL 1200 MG GT (08:14)
[2024-11-10] MEDS: LOSARTAN 25 MG TABLET GT (08:14)
[2024-11-10] MEDS: SENNOSIDES 8.6 MG TABLET GT ×2 (08:15→20:49)
--- NOTE | 2024-11-10 20:26 | PD.SAPROG ---
Progress Note - SubAcute DIAGNOSIS (1) Traumatic brain injury: Status: Chronic (2) Anoxic brain damage, not elsewhere classified: Status: Chronic (3) Tracheostomy status: Status: Chronic (4) Gastrostomy status: Status: Chronic (5) Chronic respiratory failure: Status: Chronic SUBJECTIVE Fever:: none GI:: none Shortness of Breath:: none GI:: no complaints Pain:: none OBJECTIVE Most recent vital signs: Last Vital Signs Temp 97.1 F 11/10/24 16:53 Pulse 62 11/10/24 16:53 Resp 19 11/10/24 16:53 BP 100/64 11/10/24 16:53 Pulse Ox 98 11/10/24 16:53 O2 Del Method Blow-by 11/09/24 18:00 O2 Flow Rate 10 11/10/24 06:20 FiO2 35 11/10/24 06:20 Neurological:: awake Speech:: none Answers questions:: sometimes (Sometimes opens eyes to command.) Respiratory:: lungs clear Cardiovascular: RRR Abdomen: soft and nontender Extremities:: deformities Decubitus:: none Tracheostomy:: to blow by Feeding per:: G tube Complaints:: none ASSESSMENT & PLAN Assessment: Stable status. No improvement in cognitive function. Diagnosis and treatment reviewed. Prognosis remains poor. No evident pain issues.Comfort objective being achieved.VSS Plan: Current treatment continued as ongoing
[2024-11-10] MEDS: PROPRANOLOL 20 MG TABLET GT (21:45)
[2024-11-11] VITALS (11 sets, daily range): BP systolic 96–121; BP diastolic 60–78; PULSE 51–638; RESP 16–18; TEMP 36.4–36.5; O2SAT 98–100
[2024-11-11] MEDS: DEX/HYPRO/GLY ARTIFICAL TEARS 225 DROP/15 ML BTL BOTH EYES ×2 (09:02→21:14)
[2024-11-11] MEDS: DEXLANSOPRAZOLE 30 MG PO (09:02)
[2024-11-11] MEDS: FISH OIL 1200 MG GT (09:02)
[2024-11-11] MEDS: MULTIVITAMIN W MINERALS 1 EACH TABLET GT (09:03)
[2024-11-11] MEDS: SENNOSIDES 8.6 MG TABLET GT ×2 (09:40→21:14)
[2024-11-11] MEDS: PROPRANOLOL 20 MG TABLET GT (14:40)
[2024-11-12] VITALS (9 sets, daily range): BP systolic 94–157; BP diastolic 64–90; PULSE 57–72; RESP 18–20; TEMP 36.3–36.6; O2SAT 96–99
[2024-11-12] MEDS: PROPRANOLOL 20 MG TABLET GT ×2 (05:24→22:00)
[2024-11-12] MEDS: DEXLANSOPRAZOLE 30 MG PO (08:42)
[2024-11-12] MEDS: DEX/HYPRO/GLY ARTIFICAL TEARS 225 DROP/15 ML BTL BOTH EYES ×2 (08:42→20:59)
[2024-11-12] MEDS: FISH OIL 1200 MG GT (08:42)
[2024-11-12] MEDS: SENNOSIDES 8.6 MG TABLET GT ×2 (08:43→20:59)
[2024-11-12] MEDS: MULTIVITAMIN W MINERALS 1 EACH TABLET GT (08:43)
[2024-11-13] VITALS (11 sets, daily range): BP systolic 91–125; BP diastolic 54–69; PULSE 49–667; RESP 16–18; TEMP 36.3–36.6; O2SAT 95–99
[2024-11-13] MEDS: FISH OIL 1200 MG GT (09:00)
[2024-11-13] MEDS: DEXLANSOPRAZOLE 30 MG PO (09:00)
[2024-11-13] MEDS: DEX/HYPRO/GLY ARTIFICAL TEARS 225 DROP/15 ML BTL BOTH EYES ×2 (09:00→20:56)
[2024-11-13] MEDS: LOSARTAN 25 MG TABLET GT (09:00)
[2024-11-13] MEDS: MULTIVITAMIN W MINERALS 1 EACH TABLET GT (09:01)
[2024-11-13] MEDS: SENNOSIDES 8.6 MG TABLET GT ×2 (09:01→20:57)
--- NOTE | 2024-11-13 17:00 | PD.SAPROG ---
Progress Note - SubAcute DIAGNOSIS (1) Traumatic brain injury: Status: Chronic (2) Anoxic brain damage, not elsewhere classified: Status: Chronic (3) Tracheostomy status: Status: Chronic (4) Gastrostomy status: Status: Chronic (5) Chronic respiratory failure: Status: Chronic SUBJECTIVE Fever:: none GI:: none Shortness of Breath:: none GI:: no complaints Pain:: none OBJECTIVE Most recent vital signs: Last Vital Signs Temp 97.6 F 11/13/24 11:46 Pulse 59 L 11/13/24 13:59 Resp 18 11/13/24 11:46 BP 96/60 11/13/24 13:59 Pulse Ox 95 11/13/24 09:00 O2 Del Method Blow-by 11/13/24 07:51 O2 Flow Rate 10 11/13/24 09:00 FiO2 35 11/13/24 09:00 Neurological:: awake Speech:: none Answers questions:: sometimes (Sometimes opens eyes to command.) Respiratory:: lungs clear Cardiovascular: RRR Abdomen: soft and nontender Extremities:: deformities Decubitus:: none Tracheostomy:: to blow by Feeding per:: G tube Complaints:: none ASSESSMENT & PLAN Assessment: Stable status. No improvement in cognitive function. Diagnosis and treatment reviewed. Prognosis remains poor. No evident pain issues.Comfort objective being achieved.VSS Plan: Current treatment continued as ongoing
[2024-11-14] VITALS (11 sets, daily range): BP systolic 100–117; BP diastolic 64–76; PULSE 57–73; RESP 16–22; TEMP 36.2–36.7; O2SAT 91–98
[2024-11-14] MEDS: PROPRANOLOL 20 MG TABLET GT ×2 (05:41→21:02)
[2024-11-14] MEDS: FISH OIL 1200 MG GT (08:45)
[2024-11-14] MEDS: DEXLANSOPRAZOLE 30 MG PO (08:45)
[2024-11-14] MEDS: DEX/HYPRO/GLY ARTIFICAL TEARS 225 DROP/15 ML BTL BOTH EYES ×2 (08:45→21:02)
[2024-11-14] MEDS: MULTIVITAMIN W MINERALS 1 EACH TABLET GT (08:46)
[2024-11-14] MEDS: SENNOSIDES 8.6 MG TABLET GT ×2 (08:46→21:02)
[2024-11-14] MEDS: LOSARTAN 25 MG TABLET GT (08:46)
[2024-11-15] VITALS (10 sets, daily range): BP systolic 99–106; BP diastolic 65–70; PULSE 56–78; RESP 16–71; TEMP 36.4–36.8; O2SAT 94–97
[2024-11-15] MEDS: PROPRANOLOL 20 MG TABLET GT ×3 (05:18→21:05)
[2024-11-15] MEDS: DEX/HYPRO/GLY ARTIFICAL TEARS 225 DROP/15 ML BTL BOTH EYES ×2 (08:40→21:05)
[2024-11-15] MEDS: DEXLANSOPRAZOLE 30 MG PO (08:40)
[2024-11-15] MEDS: FISH OIL 1200 MG GT (08:40)
[2024-11-15] MEDS: SENNOSIDES 8.6 MG TABLET GT ×2 (08:41→21:05)
[2024-11-15] MEDS: MULTIVITAMIN W MINERALS 1 EACH TABLET GT (08:41)
[2024-11-15] MEDS: MAGNESIUM HYDROXIDE 30 ML ORAL SUSP ML GT (23:00)
[2024-11-16] VITALS (10 sets, daily range): BP systolic 95–110; BP diastolic 59–70; PULSE 51–566; RESP 18–21; TEMP 36.2–36.6; O2SAT 94–98
[2024-11-16] MEDS: DEX/HYPRO/GLY ARTIFICAL TEARS 225 DROP/15 ML BTL BOTH EYES ×2 (09:10→21:27)
[2024-11-16] MEDS: SENNOSIDES 8.6 MG TABLET GT ×2 (09:10→21:27)
[2024-11-16] MEDS: DEXLANSOPRAZOLE 30 MG PO (09:11)
[2024-11-16] MEDS: FISH OIL 1200 MG GT (09:11)
[2024-11-16] MEDS: MULTIVITAMIN W MINERALS 1 EACH TABLET GT (09:11)
[2024-11-16] MEDS: PROPRANOLOL 20 MG TABLET GT (21:26)
[2024-11-17] VITALS (11 sets, daily range): BP systolic 98–122; BP diastolic 56–82; PULSE 54–85; RESP 17–20; TEMP 36.2–36.6; O2SAT 95–98
[2024-11-17] MEDS: DEXLANSOPRAZOLE 30 MG PO (08:40)
[2024-11-17] MEDS: DEX/HYPRO/GLY ARTIFICAL TEARS 225 DROP/15 ML BTL BOTH EYES ×2 (08:40→20:35)
[2024-11-17] MEDS: MULTIVITAMIN W MINERALS 1 EACH TABLET GT (08:41)
[2024-11-17] MEDS: SENNOSIDES 8.6 MG TABLET GT ×2 (08:41→20:35)
[2024-11-17] MEDS: LOSARTAN 25 MG TABLET GT (08:41)
[2024-11-17] MEDS: FISH OIL 1200 MG GT (08:41)
--- NOTE | 2024-11-17 13:35 | PD.SAPROG ---
Progress Note - SubAcute DIAGNOSIS (1) Traumatic brain injury: Status: Chronic (2) Anoxic brain damage, not elsewhere classified: Status: Chronic (3) Tracheostomy status: Status: Chronic (4) Gastrostomy status: Status: Chronic (5) Chronic respiratory failure: Status: Chronic SUBJECTIVE Fever:: none GI:: none Shortness of Breath:: none GI:: no complaints Pain:: none OBJECTIVE Most recent vital signs: Last Vital Signs Temp 97.7 F 11/20/24 05:57 Pulse 71 11/20/24 08:34 Resp 18 11/20/24 05:57 BP 93/61 11/20/24 08:34 Pulse Ox 98 11/20/24 05:57 O2 Del Method Blow-by 11/20/24 05:57 O2 Flow Rate 10 11/20/24 00:50 FiO2 35 11/20/24 00:50 Neurological:: awake Speech:: none Answers questions:: sometimes (Sometimes opens eyes to command.) Respiratory:: lungs clear Cardiovascular: RRR Abdomen: soft and nontender Extremities:: deformities Decubitus:: none Tracheostomy:: to blow by Feeding per:: G tube Complaints:: none ASSESSMENT & PLAN Assessment: Stable status. No improvement in cognitive function. Diagnosis and treatment reviewed. Prognosis remains poor. No evident pain issues.Comfort objective being achieved.VSS Plan: Current treatment continued as ongoing
[2024-11-17] MEDS: PROPRANOLOL 20 MG TABLET GT (14:31)
[2024-11-18] VITALS (9 sets, daily range): BP systolic 97–113; BP diastolic 62–88; PULSE 53–78; RESP 17–18; TEMP 36.4–36.5; O2SAT 92–99
[2024-11-18] MEDS: DEXLANSOPRAZOLE 30 MG PO (09:05)
[2024-11-18] MEDS: FISH OIL 1200 MG GT (09:05)
[2024-11-18] MEDS: DEX/HYPRO/GLY ARTIFICAL TEARS 225 DROP/15 ML BTL BOTH EYES ×2 (09:05→21:16)
[2024-11-18] MEDS: LOSARTAN 25 MG TABLET GT (09:05)
[2024-11-18] MEDS: MULTIVITAMIN W MINERALS 1 EACH TABLET GT (09:06)
[2024-11-18] MEDS: SENNOSIDES 8.6 MG TABLET GT ×2 (09:06→21:17)
--- NOTE | 2024-11-18 11:34 | PC.SS ---
Room visit: Resident is laying in bed with head of the bed elevated with call light properly placed with no signs of distress. Resident has no changes in care or condition, remains on blow by with trach in place and GT for medication and nutrition. Resident is unable to make needs known, his daughter Arlene is his decision maker. Resident will remain in current care and will continue to have all subacute care needs met by staff.
[2024-11-18] MEDS: PROPRANOLOL 20 MG TABLET GT (21:16)
[2024-11-19] VITALS (10 sets, daily range): BP systolic 103–126; BP diastolic 66–72; PULSE 57–78; RESP 16–20; TEMP 36.1–36.6; O2SAT 96–97
[2024-11-19] MEDS: PROPRANOLOL 20 MG TABLET GT ×3 (05:32→21:06)
[2024-11-19] MEDS: DEX/HYPRO/GLY ARTIFICAL TEARS 225 DROP/15 ML BTL BOTH EYES ×2 (08:59→20:13)
[2024-11-19] MEDS: DEXLANSOPRAZOLE 30 MG PO (08:59)
[2024-11-19] MEDS: FISH OIL 1200 MG GT (09:00)
[2024-11-19] MEDS: MULTIVITAMIN W MINERALS 1 EACH TABLET GT (09:00)
[2024-11-19] MEDS: SENNOSIDES 8.6 MG TABLET GT ×2 (09:00→20:13)
[2024-11-19] MEDS: MAGNESIUM HYDROXIDE 30 ML ORAL SUSP ML GT (21:07)
[2024-11-20] VITALS (11 sets, daily range): BP systolic 93–111; BP diastolic 61–73; PULSE 50–76; RESP 17–20; TEMP 36.4–36.6; O2SAT 96–98
[2024-11-20] MEDS: DEX/HYPRO/GLY ARTIFICAL TEARS 225 DROP/15 ML BTL BOTH EYES ×2 (08:33→20:40)
[2024-11-20] MEDS: DEXLANSOPRAZOLE 30 MG PO (08:33)
[2024-11-20] MEDS: FISH OIL 1200 MG GT (08:33)
[2024-11-20] MEDS: SENNOSIDES 8.6 MG TABLET GT ×2 (08:34→20:40)
[2024-11-20] MEDS: MULTIVITAMIN W MINERALS 1 EACH TABLET GT (08:34)
[2024-11-20] MEDS: PROPRANOLOL 20 MG TABLET GT (13:56)
[2024-11-21] VITALS (10 sets, daily range): BP systolic 95–120; BP diastolic 59–77; PULSE 54–687; RESP 17–20; TEMP 36.3–36.8; O2SAT 96–99
[2024-11-21] MEDS: DEX/HYPRO/GLY ARTIFICAL TEARS 225 DROP/15 ML BTL BOTH EYES ×2 (09:41→21:05)
[2024-11-21] MEDS: DEXLANSOPRAZOLE 30 MG PO (09:42)
[2024-11-21] MEDS: FISH OIL 1200 MG GT (09:42)
[2024-11-21] MEDS: MULTIVITAMIN W MINERALS 1 EACH TABLET GT (09:42)
[2024-11-21] MEDS: SENNOSIDES 8.6 MG TABLET GT ×2 (09:42→21:05)
[2024-11-21] MEDS: LOSARTAN 25 MG TABLET GT (09:42)
--- NOTE | 2024-11-21 20:56 | PD.SAPROG ---
Progress Note - SubAcute DIAGNOSIS (1) Traumatic brain injury: Status: Chronic (2) Anoxic brain damage, not elsewhere classified: Status: Chronic (3) Tracheostomy status: Status: Chronic (4) Gastrostomy status: Status: Chronic (5) Chronic respiratory failure: Status: Chronic SUBJECTIVE Fever:: none GI:: none Shortness of Breath:: none GI:: no complaints Pain:: none OBJECTIVE Most recent vital signs: Last Vital Signs Temp 98.3 F 11/21/24 16:46 Pulse 56 L 11/21/24 16:46 Resp 20 11/21/24 16:46 BP 120/66 11/21/24 16:46 Pulse Ox 98 11/21/24 16:46 O2 Del Method Blow-by 11/21/24 16:46 O2 Flow Rate 10 11/21/24 16:46 FiO2 35 11/21/24 16:46 Neurological:: awake Speech:: none Answers questions:: sometimes (Sometimes opens eyes to command.) Respiratory:: lungs clear Cardiovascular: RRR Abdomen: soft and nontender Extremities:: deformities Decubitus:: none Tracheostomy:: to blow by Feeding per:: G tube Complaints:: none ASSESSMENT & PLAN Assessment: Stable status. No improvement in cognitive function. Diagnosis and treatment reviewed. Prognosis remains poor. No evident pain issues.Comfort objective being achieved.VSS Plan: Current treatment continued as ongoing
[2024-11-21] MEDS: PROPRANOLOL 20 MG TABLET GT (21:06)
[2024-11-22] VITALS (11 sets, daily range): BP systolic 95–118; BP diastolic 60–80; PULSE 52–76; RESP 17–20; TEMP 36.1–36.6; O2SAT 97–100
[2024-11-22] MEDS: PROPRANOLOL 20 MG TABLET GT (05:06)
[2024-11-22] MEDS: DEX/HYPRO/GLY ARTIFICAL TEARS 225 DROP/15 ML BTL BOTH EYES ×2 (08:13→20:22)
[2024-11-22] MEDS: DEXLANSOPRAZOLE 30 MG PO (08:13)
[2024-11-22] MEDS: FISH OIL 1200 MG GT (08:15)
[2024-11-22] MEDS: MULTIVITAMIN W MINERALS 1 EACH TABLET GT (08:16)
[2024-11-22] MEDS: SENNOSIDES 8.6 MG TABLET GT ×2 (08:18→20:22)
[2024-11-22] MEDS: MAGNESIUM HYDROXIDE 30 ML ORAL SUSP ML GT (23:00)
[2024-11-23] VITALS (10 sets, daily range): BP systolic 100–108; BP diastolic 61–70; PULSE 53–67; RESP 18–21; TEMP 36.3–36.7; O2SAT 94–99
[2024-11-23] MEDS: PROPRANOLOL 20 MG TABLET GT ×3 (05:08→21:05)
[2024-11-23] MEDS: DEX/HYPRO/GLY ARTIFICAL TEARS 225 DROP/15 ML BTL BOTH EYES ×2 (08:51→21:05)
[2024-11-23] MEDS: FISH OIL 1200 MG GT (08:52)
[2024-11-23] MEDS: DEXLANSOPRAZOLE 30 MG PO (08:52)
[2024-11-23] MEDS: SENNOSIDES 8.6 MG TABLET GT ×2 (08:55→21:05)
[2024-11-23] MEDS: MULTIVITAMIN W MINERALS 1 EACH TABLET GT (08:55)
[2024-11-24] VITALS (9 sets, daily range): BP systolic 96–114; BP diastolic 56–73; PULSE 53–73; RESP 17–18; TEMP 36.3–36.8; O2SAT 94–98
[2024-11-24] MEDS: PROPRANOLOL 20 MG TABLET GT ×3 (05:21→21:40)
[2024-11-24] MEDS: DEX/HYPRO/GLY ARTIFICAL TEARS 225 DROP/15 ML BTL BOTH EYES ×2 (08:39→20:38)
[2024-11-24] MEDS: FISH OIL 1200 MG GT (08:39)
[2024-11-24] MEDS: MULTIVITAMIN W MINERALS 1 EACH TABLET GT (08:39)
[2024-11-24] MEDS: SENNOSIDES 8.6 MG TABLET GT ×2 (08:39→20:38)
[2024-11-24] MEDS: DEXLANSOPRAZOLE 30 MG PO (08:39)
[2024-11-25] VITALS (10 sets, daily range): BP systolic 101–144; BP diastolic 61–80; PULSE 51–73; RESP 17–20; TEMP 36.6–36.7; O2SAT 95–98
[2024-11-25] MEDS: DEX/HYPRO/GLY ARTIFICAL TEARS 225 DROP/15 ML BTL BOTH EYES ×2 (08:17→21:06)
[2024-11-25] MEDS: LOSARTAN 25 MG TABLET GT (08:18)
[2024-11-25] MEDS: FISH OIL 1200 MG GT (08:18)
[2024-11-25] MEDS: DEXLANSOPRAZOLE 30 MG PO (08:18)
[2024-11-25] MEDS: MULTIVITAMIN W MINERALS 1 EACH TABLET GT (08:19)
[2024-11-25] MEDS: SENNOSIDES 8.6 MG TABLET GT ×2 (08:19→21:08)
--- NOTE | 2024-11-25 13:35 | PD.SAPROG ---
Progress Note - SubAcute DIAGNOSIS (1) Traumatic brain injury: Status: Chronic (2) Anoxic brain damage, not elsewhere classified: Status: Chronic (3) Tracheostomy status: Status: Chronic (4) Gastrostomy status: Status: Chronic (5) Chronic respiratory failure: Status: Chronic SUBJECTIVE Fever:: none GI:: none Shortness of Breath:: none GI:: no complaints Pain:: none OBJECTIVE Most recent vital signs: Last Vital Signs Temp 98.3 F 11/28/24 05:34 Pulse 61 11/28/24 05:34 Resp 19 11/28/24 05:34 BP 112/73 11/28/24 05:34 Pulse Ox 96 11/28/24 05:34 O2 Del Method Blow-by 11/28/24 05:34 O2 Flow Rate 10 11/27/24 09:00 FiO2 35 11/27/24 09:00 Neurological:: awake Speech:: none Answers questions:: sometimes (Sometimes opens eyes to command.) Respiratory:: lungs clear Cardiovascular: RRR Abdomen: soft and nontender Extremities:: deformities Decubitus:: none Tracheostomy:: to blow by Feeding per:: G tube Complaints:: none ASSESSMENT & PLAN Assessment: Stable status. No improvement in cognitive function. Diagnosis and treatment reviewed. Prognosis remains poor. No evident pain issues.Comfort objective being achieved.VSS Plan: Current treatment continued as ongoing
[2024-11-25] MEDS: PROPRANOLOL 20 MG TABLET GT ×2 (14:59→21:08)
[2024-11-25] MEDS: MAGNESIUM HYDROXIDE 30 ML ORAL SUSP ML GT (21:08)
[2024-11-26] VITALS (9 sets, daily range): BP systolic 95–116; BP diastolic 60–78; PULSE 55–74; RESP 18–20; TEMP 36.4–36.8; O2SAT 94–99
[2024-11-26] MEDS: PROPRANOLOL 20 MG TABLET GT ×3 (05:11→21:14)
[2024-11-26] MEDS: MULTIVITAMIN W MINERALS 1 EACH TABLET GT (08:19)
[2024-11-26] MEDS: SENNOSIDES 8.6 MG TABLET GT ×2 (08:19→21:14)
[2024-11-26] MEDS: DEX/HYPRO/GLY ARTIFICAL TEARS 225 DROP/15 ML BTL BOTH EYES ×2 (08:20→21:13)
[2024-11-26] MEDS: FISH OIL 1200 MG GT (08:20)
[2024-11-26] MEDS: DEXLANSOPRAZOLE 30 MG PO (08:20)
[2024-11-26] MEDS: BISACODYL 10 MG SUPP.RECT PR (08:22)
[2024-11-27] VITALS (11 sets, daily range): BP systolic 92–108; BP diastolic 57–77; PULSE 7–77; RESP 18–19; TEMP 36.3–37; O2SAT 96–99
[2024-11-27] MEDS: DEXLANSOPRAZOLE 30 MG PO (08:32)
[2024-11-27] MEDS: DEX/HYPRO/GLY ARTIFICAL TEARS 225 DROP/15 ML BTL BOTH EYES ×2 (08:32→20:25)
[2024-11-27] MEDS: FISH OIL 1200 MG GT (08:33)
[2024-11-27] MEDS: MULTIVITAMIN W MINERALS 1 EACH TABLET GT (08:34)
[2024-11-27] MEDS: SENNOSIDES 8.6 MG TABLET GT ×2 (08:34→20:25)
--- NOTE | 2024-11-27 12:57 | PC.SS ---
Room visit: Resident is laying in bed with head of the bed elevated with call light properly placed with no signs of distress. Resident has no changes in care or condition, he remains on blow by with trach in place and GT for medication and nutrition. Resident is total care unable to make needs known, his daughter Arlene is his decision maker. Resident will remain in current care and will continue to have all subacute care needs met by staff. This SSD will continue to monitor for changes in mood and behavior.
[2024-11-27] MEDS: PROPRANOLOL 20 MG TABLET GT (21:30)
[2024-11-28] VITALS (10 sets, daily range): BP systolic 93–112; BP diastolic 58–73; PULSE 59–68; RESP 17–19; TEMP 36.4–36.8; O2SAT 94–97
[2024-11-28] MEDS: PROPRANOLOL 20 MG TABLET GT ×2 (05:15→21:50)
[2024-11-28] MEDS: FISH OIL 1200 MG GT (08:22)
[2024-11-28] MEDS: DEX/HYPRO/GLY ARTIFICAL TEARS 225 DROP/15 ML BTL BOTH EYES ×2 (08:22→20:37)
[2024-11-28] MEDS: DEXLANSOPRAZOLE 30 MG PO (08:22)
[2024-11-28] MEDS: SENNOSIDES 8.6 MG TABLET GT ×2 (08:23→20:37)
[2024-11-28] MEDS: MULTIVITAMIN W MINERALS 1 EACH TABLET GT (08:23)
--- NOTE | 2024-11-28 15:14 | PC.NURSE ---
Notified MD regarding dry blood noted to left outer ear and ear canal. [employer] cleansed outer area and inspected inner area with penlight. order for cleanse inner area well with NS and apply some earplug (cotton ball ) every shift x5 days the re-eval. Will carry out order and monitor closely.
[2024-11-29] VITALS (9 sets, daily range): BP systolic 98–117; BP diastolic 61–76; PULSE 57–76; RESP 17–20; TEMP 36.2–36.6; O2SAT 96–98
[2024-11-29] MEDS: PROPRANOLOL 20 MG TABLET GT ×2 (05:51→21:07)
[2024-11-29] MEDS: BISACODYL 10 MG SUPP.RECT PR (08:30)
[2024-11-29] MEDS: FISH OIL 1200 MG GT (09:01)
[2024-11-29] MEDS: DEXLANSOPRAZOLE 30 MG PO (09:01)
[2024-11-29] MEDS: DEX/HYPRO/GLY ARTIFICAL TEARS 225 DROP/15 ML BTL BOTH EYES ×2 (09:01→20:46)
[2024-11-29] MEDS: MULTIVITAMIN W MINERALS 1 EACH TABLET GT (09:03)
[2024-11-29] MEDS: SENNOSIDES 8.6 MG TABLET GT ×2 (09:03→20:45)
--- NOTE | 2024-11-29 10:59 | PD.SAPROG ---
Progress Note - SubAcute DIAGNOSIS (1) Traumatic brain injury: Status: Chronic (2) Anoxic brain damage, not elsewhere classified: Status: Chronic (3) Tracheostomy status: Status: Chronic (4) Gastrostomy status: Status: Chronic (5) Chronic respiratory failure: Status: Chronic SUBJECTIVE Fever:: none GI:: none Shortness of Breath:: none GI:: no complaints Pain:: none OBJECTIVE Most recent vital signs: Last Vital Signs Temp 97.1 F 11/29/24 05:54 Pulse 70 11/29/24 09:02 Resp 18 11/29/24 07:00 BP 99/64 11/29/24 09:02 Pulse Ox 96 11/29/24 07:00 O2 Del Method Blow-by 11/29/24 05:54 O2 Flow Rate 10 11/29/24 07:00 FiO2 35 11/29/24 07:00 Neurological:: awake Speech:: none Answers questions:: sometimes (Sometimes opens eyes to command.) Respiratory:: lungs clear Cardiovascular: RRR Abdomen: soft and nontender Extremities:: deformities Decubitus:: none Tracheostomy:: to blow by Feeding per:: G tube Complaints:: none ASSESSMENT & PLAN Assessment: Stable status. No improvement in cognitive function. Diagnosis and treatment reviewed. Prognosis remains poor. No evident pain issues.Comfort objective being achieved.VSS Plan: Current treatment continued as ongoing
[2024-11-30] VITALS (12 sets, daily range): BP systolic 99–117; BP diastolic 57–72; PULSE 51–80; RESP 16–22; TEMP 36.1–36.7; O2SAT 97–99
[2024-11-30] MEDS: PROPRANOLOL 20 MG TABLET GT (05:30)
[2024-11-30] MEDS: DEXLANSOPRAZOLE 30 MG PO (08:40)
[2024-11-30] MEDS: DEX/HYPRO/GLY ARTIFICAL TEARS 225 DROP/15 ML BTL BOTH EYES ×2 (08:40→20:54)
[2024-11-30] MEDS: FISH OIL 1200 MG GT (08:41)
[2024-11-30] MEDS: LOSARTAN 25 MG TABLET GT (08:41)
[2024-11-30] MEDS: MULTIVITAMIN W MINERALS 1 EACH TABLET GT (08:42)
[2024-11-30] MEDS: SENNOSIDES 8.6 MG TABLET GT ×2 (08:42→20:54)
[2024-12-01] VITALS (9 sets, daily range): BP systolic 90–114; BP diastolic 53–69; PULSE 55–82; RESP 17–19; TEMP 36.3–36.4; O2SAT 97–99
[2024-12-01] MEDS: DEX/HYPRO/GLY ARTIFICAL TEARS 225 DROP/15 ML BTL BOTH EYES ×2 (08:42→20:32)
[2024-12-01] MEDS: FISH OIL 1200 MG GT (08:42)
[2024-12-01] MEDS: DEXLANSOPRAZOLE 30 MG PO (08:42)
[2024-12-01] MEDS: MULTIVITAMIN W MINERALS 1 EACH TABLET GT (08:43)
[2024-12-01] MEDS: SENNOSIDES 8.6 MG TABLET GT ×2 (08:43→20:32)
[2024-12-01] MEDS: PROPRANOLOL 20 MG TABLET GT (21:15)
[2024-12-02] VITALS (11 sets, daily range): BP systolic 98–114; BP diastolic 62–71; PULSE 56–90; RESP 17–20; TEMP 36.5–36.9; O2SAT 98–100
[2024-12-02] MEDS: PROPRANOLOL 20 MG TABLET GT (05:00)
[2024-12-02] MEDS: DEX/HYPRO/GLY ARTIFICAL TEARS 225 DROP/15 ML BTL BOTH EYES ×2 (08:40→21:06)
[2024-12-02] MEDS: DEXLANSOPRAZOLE 30 MG PO (08:40)
[2024-12-02] MEDS: FISH OIL 1200 MG GT (08:40)
[2024-12-02] MEDS: LOSARTAN 25 MG TABLET GT (08:41)
[2024-12-02] MEDS: MULTIVITAMIN W MINERALS 1 EACH TABLET GT (08:41)
[2024-12-02] MEDS: SENNOSIDES 8.6 MG TABLET GT ×2 (08:42→21:06)
[2024-12-03] VITALS (10 sets, daily range): BP systolic 94–124; BP diastolic 54–84; PULSE 58–74; RESP 16–20; TEMP 36.4–36.7; O2SAT 97–100
[2024-12-03] MEDS: PROPRANOLOL 20 MG TABLET GT ×2 (05:11→21:10)
[2024-12-03] MEDS: DEX/HYPRO/GLY ARTIFICAL TEARS 225 DROP/15 ML BTL BOTH EYES ×2 (08:34→21:10)
[2024-12-03] MEDS: MULTIVITAMIN W MINERALS 1 EACH TABLET GT (08:35)
[2024-12-03] MEDS: DEXLANSOPRAZOLE 30 MG PO (08:35)
[2024-12-03] MEDS: SENNOSIDES 8.6 MG TABLET GT ×2 (08:35→21:10)
[2024-12-03] MEDS: FISH OIL 1200 MG GT (08:35)
--- NOTE | 2024-12-03 16:15 | PD.SAPROG ---
Progress Note - SubAcute DIAGNOSIS (1) Traumatic brain injury: Status: Chronic (2) Anoxic brain damage, not elsewhere classified: Status: Chronic (3) Tracheostomy status: Status: Chronic (4) Gastrostomy status: Status: Chronic (5) Chronic respiratory failure: Status: Chronic SUBJECTIVE Fever:: none GI:: none Shortness of Breath:: none GI:: no complaints Pain:: none OBJECTIVE Most recent vital signs: Last Vital Signs Temp 97.9 F 12/03/24 11:24 Pulse 61 12/03/24 15:11 Resp 16 12/03/24 11:24 BP 96/63 12/03/24 15:11 Pulse Ox 99 12/03/24 07:30 O2 Del Method Blow-by 12/03/24 05:32 O2 Flow Rate 10 12/03/24 07:30 FiO2 35 12/03/24 07:30 Neurological:: awake Speech:: none Answers questions:: sometimes (Sometimes opens eyes to command.) Respiratory:: lungs clear Cardiovascular: RRR Abdomen: soft and nontender Extremities:: deformities Decubitus:: none Tracheostomy:: to blow by Feeding per:: G tube Complaints:: none ASSESSMENT & PLAN Assessment: Stable status. No improvement in cognitive function. Diagnosis and treatment reviewed. Prognosis remains poor. No evident pain issues.Comfort objective being achieved.VSS Plan: Current treatment continued as ongoing
[2024-12-04] VITALS (12 sets, daily range): BP systolic 96–122; BP diastolic 56–82; PULSE 59–88; RESP 18–24; TEMP 36.4–39.1; O2SAT 96–99
[2024-12-04] MEDS: DEXLANSOPRAZOLE 30 MG PO (08:23)
[2024-12-04] MEDS: DEX/HYPRO/GLY ARTIFICAL TEARS 225 DROP/15 ML BTL BOTH EYES ×2 (08:23→21:17)
[2024-12-04] MEDS: LOSARTAN 25 MG TABLET GT (08:23)
[2024-12-04] MEDS: FISH OIL 1200 MG GT (08:23)
[2024-12-04] MEDS: SENNOSIDES 8.6 MG TABLET GT ×2 (08:24→21:17)
[2024-12-04] MEDS: MULTIVITAMIN W MINERALS 1 EACH TABLET GT (08:24)
[2024-12-04] MEDS: PROPRANOLOL 20 MG TABLET GT ×2 (14:20→21:18)
--- NOTE | 2024-12-04 15:00 | PC.SS ---
Room visit: Resident is laying in bed with head of the bed elevated with call light properly placed with no signs of distress. Resident is alert unable to make needs known, his decision maker is his daughter. Resident has no changes in care or condition he remains on blow by with trach in place and GT for medication and nutrition. Resident will remain in current care and will have all subacute care needs met by staff. Resident has no changes in mood and behavior, this SSD will continue to make daily contact with resident and offer support.
[2024-12-04] MEDS: ACETAMINOPHEN 325 MG TABLET 650 MG GT (18:00)
--- NOTE | 2024-12-04 18:18 | XR_ITS ---
Examination: AP chest single view Technique one AP portable semiupright chest single view Exam date and time: December 04, 2024 195 hrs. Comparison August 14, 2022 Indications: Fever today. Findings: Atelectasis versus early pneumonia right base Moderate elevation right hemidiaphragm Normal heart size Tracheostomy tube tip 5.9 cm above josue Impression: Atelectasis versus early pneumonia right base
[2024-12-04 19:29] LABS: Basophils # (Auto) 0.0 Thou/mm3 (0.0-0.2); Basophils % (Auto) 0 % (0-2.5); Eosinophils # (Auto) 0.0 Thou/mm3 (0.0-0.5); Eosinophils % (Auto) 0 % (0-10); Hematocrit 40.9 % (41.0-53.0); Hemoglobin 14.7 g/dL (13.5-16.0); Immature Granulocytes Auto 0.07 Thou/mm3 (0.00-0.00); Lymphocytes # (Auto) 1.6 Thou/mm3 (1.0-4.8); Lymphocytes % (Auto) 8 % (10-50); Mean Corpuscular HGB Conc 35.9 g/dl (31.0-37.0); Mean Corpuscular Hemoglobin 32.2 pg (25.0-35.0); Mean Corpuscular Volume 90 fL (80-100); Monocytes # (Auto) 1.4 Thou/mm3 (0.0-0.8); Monocytes % (Auto) 8 % (0-12); Neutrophils # (Auto) 16.0 Thou/mm3 (1.8-7.7); Neutrophils % (Auto) 83 % (37-80); Nucleated Red Blood Cell # 0.00 Thou/mm3 (0.00-0.00); Nucleated Red Blood Cell % 0 /100 WBC (0); Platelet Count 232 Thou/mm3 (140-440); RDW Standard Deviation 40.5 fL (35.1-43.9); Red Blood Count 4.56 Miln/mm3 (4.50-5.90); White Blood Count 19.2 Thou/mm3 (3.8-10.6)
[2024-12-04 19:55] LABS: Procalcitonin 0.26 ng/ml (0.0-0.49)
[2024-12-04 20:23] LABS: Collection Type, Urine Catheter
[2024-12-04 20:49] LABS: Bilirubin,Urine Negative (Negative); Blood,Urine Negative (Negative); Clarity,Urine Clear (Clear/Hazy); Color,Urine Yellow (Lt Yel-Yel); Culture Indicated,Urine Not Indicated; Glucose, Urine Negative (Negative); Ketones,Urine Negative (Negative); Leukocyte Esterase,Urine Negative (Negative); Nitrite,Urine Negative (Negative); PH,Urine 8.0 (5.0-7.0); Protein,Urine Trace (Neg - Trace); RBC,Urine 8 /hpf (0-3); Specific Gravity,Urine 1.021 (1.001-1.035); Squamous Epithelial Cell,Urine < 1 /hpf (0-5); Urobilinogen,Urine 2.0 mg/dL (0.0-1.0); WBC,Urine 1 /hpf (0-5)
[2024-12-04 21:30] LABS: COVID-19 Antigen (In-House) Negative (Negative)
[2024-12-04 21:31] LABS: Influenza A Ag Negative; Influenza B Ag Negative
--- NOTE | 2024-12-04 22:18 | PC.NURSE ---
Resident had rectal temp 102.4@1800. Fever protocol started. Vitals, (Rectal Temp 100.2 BP 103/71 HR 80 RR 22 O2Sat 98% on 10L 35%), Labs and xray results reviewed with Dr. Ham @ 2100. Ordered to repeat CBC in am, and to give extra 250ml of water via gtube now then again in six hours. Daughter, Arlene updated with resident's condition and plan of care @ 2139. She was appreciative of the call.
[2024-12-05] VITALS (11 sets, daily range): BP systolic 91–120; BP diastolic 48–72; PULSE 60–88; RESP 16–22; TEMP 36.9–37.7; O2SAT 96–97
[2024-12-05] MEDS: PROPRANOLOL 20 MG TABLET GT ×2 (05:39→21:46)
[2024-12-05] MEDS: DEX/HYPRO/GLY ARTIFICAL TEARS 225 DROP/15 ML BTL BOTH EYES ×2 (09:02→20:15)
[2024-12-05] MEDS: FISH OIL 1200 MG GT (09:02)
[2024-12-05] MEDS: DEXLANSOPRAZOLE 30 MG PO (09:02)
[2024-12-05] MEDS: SENNOSIDES 8.6 MG TABLET GT ×2 (09:03→20:16)
[2024-12-05] MEDS: MULTIVITAMIN W MINERALS 1 EACH TABLET GT (09:03)
[2024-12-05 09:42] LABS: Basophils # (Auto) 0.0 Thou/mm3 (0.0-0.2); Basophils % (Auto) 0 % (0-2.5); Eosinophils # (Auto) 0.1 Thou/mm3 (0.0-0.5); Eosinophils % (Auto) 1 % (0-10); Hematocrit 39.3 % (41.0-53.0); Hemoglobin 13.8 g/dL (13.5-16.0); Immature Granulocytes Auto 0.03 Thou/mm3 (0.00-0.00); Lymphocytes # (Auto) 2.2 Thou/mm3 (1.0-4.8); Lymphocytes % (Auto) 17 % (10-50); Mean Corpuscular HGB Conc 35.1 g/dl (31.0-37.0); Mean Corpuscular Hemoglobin 32.1 pg (25.0-35.0); Mean Corpuscular Volume 91 fL (80-100); Monocytes # (Auto) 1.5 Thou/mm3 (0.0-0.8); Monocytes % (Auto) 12 % (0-12); Neutrophils # (Auto) 9.2 Thou/mm3 (1.8-7.7); Neutrophils % (Auto) 70 % (37-80); Nucleated Red Blood Cell # 0.00 Thou/mm3 (0.00-0.00); Nucleated Red Blood Cell % 0 /100 WBC (0); Platelet Count 205 Thou/mm3 (140-440); RDW Standard Deviation 41.8 fL (35.1-43.9); Red Blood Count 4.30 Miln/mm3 (4.50-5.90); White Blood Count 13.1 Thou/mm3 (3.8-10.6)
[2024-12-06] VITALS (8 sets, daily range): BP systolic 99–109; BP diastolic 61–71; PULSE 54–87; RESP 18–22; TEMP 36.4–36.6; O2SAT 96–97
[2024-12-06] MEDS: PROPRANOLOL 20 MG TABLET GT ×3 (05:18→21:12)
[2024-12-06] MEDS: MAGNESIUM HYDROXIDE 30 ML ORAL SUSP ML GT (06:23)
[2024-12-06] MEDS: LOSARTAN 25 MG TABLET GT (08:19)
[2024-12-06] MEDS: DEXLANSOPRAZOLE 30 MG PO (08:19)
[2024-12-06] MEDS: FISH OIL 1200 MG GT (08:19)
[2024-12-06] MEDS: DEX/HYPRO/GLY ARTIFICAL TEARS 225 DROP/15 ML BTL BOTH EYES ×2 (08:19→20:39)
[2024-12-06] MEDS: SENNOSIDES 8.6 MG TABLET GT ×2 (08:20→20:39)
[2024-12-06] MEDS: MULTIVITAMIN W MINERALS 1 EACH TABLET GT (08:20)
[2024-12-07] VITALS (9 sets, daily range): BP systolic 91–128; BP diastolic 55–80; PULSE 54–79; RESP 16–20; TEMP 36.6–36.8; O2SAT 94–98
[2024-12-07 08:01] LABS: Basophils # (Auto) 0.1 Thou/mm3 (0.0-0.2); Basophils % (Auto) 1 % (0-2.5); Eosinophils # (Auto) 0.3 Thou/mm3 (0.0-0.5); Eosinophils % (Auto) 3 % (0-10); Hematocrit 36.9 % (41.0-53.0); Hemoglobin 12.8 g/dL (13.5-16.0); Immature Granulocytes Auto 0.02 Thou/mm3 (0.00-0.00); Lymphocytes # (Auto) 2.4 Thou/mm3 (1.0-4.8); Lymphocytes % (Auto) 26 % (10-50); Mean Corpuscular HGB Conc 34.7 g/dl (31.0-37.0); Mean Corpuscular Hemoglobin 32.0 pg (25.0-35.0); Mean Corpuscular Volume 92 fL (80-100); Monocytes # (Auto) 0.9 Thou/mm3 (0.0-0.8); Monocytes % (Auto) 10 % (0-12); Neutrophils # (Auto) 5.3 Thou/mm3 (1.8-7.7); Neutrophils % (Auto) 59 % (37-80); Nucleated Red Blood Cell # 0.00 Thou/mm3 (0.00-0.00); Nucleated Red Blood Cell % 0 /100 WBC (0); Platelet Count 201 Thou/mm3 (140-440); RDW Standard Deviation 41.9 fL (35.1-43.9); Red Blood Count 4.00 Miln/mm3 (4.50-5.90); White Blood Count 9.0 Thou/mm3 (3.8-10.6)
[2024-12-07] MEDS: DEX/HYPRO/GLY ARTIFICAL TEARS 225 DROP/15 ML BTL BOTH EYES ×2 (08:23→20:33)
[2024-12-07] MEDS: DEXLANSOPRAZOLE 30 MG PO (08:24)
[2024-12-07] MEDS: FISH OIL 1200 MG GT (08:25)
[2024-12-07] MEDS: MULTIVITAMIN W MINERALS 1 EACH TABLET GT (08:28)
--- NOTE | 2024-12-07 13:43 | PC.SS ---
Resident seen by supervisor files Dr. Thomason for routine toe nail trim. No new orders or recommendations to continue current care.
[2024-12-07] MEDS: PROPRANOLOL 20 MG TABLET GT (14:48)
--- NOTE | 2024-12-07 18:49 | PC.NURSE ---
Nurse Heather reviewed partial cultures done previous days. MILTON Romero stated did not add any new orders. stated microorganisms are colonized. Resident remained a symptomatic this shift. Will continue to monitor.
[2024-12-07] MEDS: SENNOSIDES 8.6 MG TABLET GT (20:33)
--- NOTE | 2024-12-07 21:04 | PD.SAPROG ---
Progress Note - SubAcute DIAGNOSIS (1) Traumatic brain injury: Status: Chronic (2) Anoxic brain damage, not elsewhere classified: Status: Chronic (3) Tracheostomy status: Status: Chronic (4) Gastrostomy status: Status: Chronic (5) Chronic respiratory failure: Status: Chronic SUBJECTIVE Fever:: none GI:: none Shortness of Breath:: none GI:: no complaints Pain:: none OBJECTIVE Most recent vital signs: Last Vital Signs Temp 98.2 F 12/07/24 11:43 Pulse 60 12/07/24 19:18 Resp 18 12/07/24 19:18 BP 104/63 12/07/24 14:48 Pulse Ox 94 L 12/07/24 19:18 O2 Del Method Blow-by 12/04/24 05:52 O2 Flow Rate 10 12/07/24 19:18 FiO2 35 12/07/24 19:18 Neurological:: awake Speech:: none Answers questions:: sometimes (Sometimes opens eyes to command.) Respiratory:: lungs clear Cardiovascular: RRR Abdomen: soft and nontender Extremities:: deformities Decubitus:: none Tracheostomy:: to blow by Feeding per:: G tube Complaints:: none ASSESSMENT & PLAN Assessment: Stable status. No improvement in cognitive function. Diagnosis and treatment reviewed. Prognosis remains poor. No evident pain issues.Comfort objective being achieved.VSS Plan: Current treatment continued as ongoing
[2024-12-08] VITALS (8 sets, daily range): BP systolic 97–121; BP diastolic 58–75; PULSE 52–71; RESP 16–22; TEMP 36.4–36.5; O2SAT 95–97
[2024-12-08] MEDS: PROPRANOLOL 20 MG TABLET GT ×2 (05:10→21:00)
[2024-12-08] MEDS: SENNOSIDES 8.6 MG TABLET GT ×2 (08:03→20:42)
[2024-12-08] MEDS: DEX/HYPRO/GLY ARTIFICAL TEARS 225 DROP/15 ML BTL BOTH EYES ×2 (08:03→20:42)
[2024-12-08] MEDS: MULTIVITAMIN W MINERALS 1 EACH TABLET GT (08:04)
[2024-12-08] MEDS: FISH OIL 1200 MG GT (08:04)
[2024-12-08] MEDS: DEXLANSOPRAZOLE 30 MG PO (08:04)
[2024-12-09] VITALS (10 sets, daily range): BP systolic 92–116; BP diastolic 61–71; PULSE 50–79; RESP 17–18; TEMP 36.1–36.9; O2SAT 94–100
[2024-12-09] MEDS: MAGNESIUM HYDROXIDE 30 ML ORAL SUSP ML GT (06:38)
[2024-12-09] MEDS: SENNOSIDES 8.6 MG TABLET GT ×2 (08:03→20:43)
[2024-12-09] MEDS: FISH OIL 1200 MG GT (08:04)
[2024-12-09] MEDS: DEXLANSOPRAZOLE 30 MG PO (08:04)
[2024-12-09] MEDS: DEX/HYPRO/GLY ARTIFICAL TEARS 225 DROP/15 ML BTL BOTH EYES ×2 (08:04→20:44)
[2024-12-09] MEDS: LOSARTAN 25 MG TABLET GT (08:04)
[2024-12-09] MEDS: MULTIVITAMIN W MINERALS 1 EACH TABLET GT (08:04)
[2024-12-09] MEDS: PROPRANOLOL 20 MG TABLET GT (21:24)
[2024-12-10] VITALS (9 sets, daily range): BP systolic 97–111; BP diastolic 58–71; PULSE 50–73; RESP 17–18; TEMP 36.2–36.7; O2SAT 97–99
[2024-12-10] MEDS: PROPRANOLOL 20 MG TABLET GT (05:30)
[2024-12-10] MEDS: SENNOSIDES 8.6 MG TABLET GT ×2 (08:41→21:25)
[2024-12-10] MEDS: FISH OIL 1200 MG GT (08:42)
[2024-12-10] MEDS: DEX/HYPRO/GLY ARTIFICAL TEARS 225 DROP/15 ML BTL BOTH EYES ×2 (08:42→21:25)
[2024-12-10] MEDS: DEXLANSOPRAZOLE 30 MG PO (08:42)
[2024-12-10] MEDS: MULTIVITAMIN W MINERALS 1 EACH TABLET GT (08:43)
--- NOTE | 2024-12-10 13:52 | PC.SS ---
Resident seen by [facility] for oral x-rays, resident unable to participate.
[2024-12-11] VITALS (9 sets, daily range): BP systolic 108–118; BP diastolic 64–82; PULSE 57–83; RESP 17–21; TEMP 36.2–36.7; O2SAT 98–99
[2024-12-11] MEDS: PROPRANOLOL 20 MG TABLET GT ×3 (05:30→21:24)
[2024-12-11] MEDS: SENNOSIDES 8.6 MG TABLET GT ×2 (09:10→20:34)
[2024-12-11] MEDS: FISH OIL 1200 MG GT (09:11)
[2024-12-11] MEDS: LOSARTAN 25 MG TABLET GT (09:11)
[2024-12-11] MEDS: DEX/HYPRO/GLY ARTIFICAL TEARS 225 DROP/15 ML BTL BOTH EYES ×2 (09:11→20:35)
[2024-12-11] MEDS: MULTIVITAMIN W MINERALS 1 EACH TABLET GT (09:11)
[2024-12-11] MEDS: DEXLANSOPRAZOLE 30 MG PO (09:11)
--- NOTE | 2024-12-11 15:37 | PD.SAPROG ---
Progress Note - SubAcute DIAGNOSIS (1) Traumatic brain injury: Status: Chronic (2) Anoxic brain damage, not elsewhere classified: Status: Chronic (3) Tracheostomy status: Status: Chronic (4) Gastrostomy status: Status: Chronic (5) Chronic respiratory failure: Status: Chronic SUBJECTIVE Fever:: none GI:: none Shortness of Breath:: none GI:: no complaints Pain:: none OBJECTIVE Most recent vital signs: Last Vital Signs Temp 97.6 F 12/11/24 11:31 Pulse 71 12/11/24 13:39 Resp 17 12/11/24 11:31 BP 108/71 12/11/24 13:39 Pulse Ox 99 12/11/24 06:45 O2 Del Method Blow-by 12/11/24 05:59 O2 Flow Rate 10 12/11/24 06:45 FiO2 35 12/11/24 06:45 Neurological:: awake Speech:: none Answers questions:: sometimes (Sometimes opens eyes to command.) Respiratory:: lungs clear Cardiovascular: RRR Abdomen: soft and nontender Extremities:: deformities Decubitus:: none Tracheostomy:: to blow by Feeding per:: G tube Complaints:: none ASSESSMENT & PLAN Assessment: Stable status. No improvement in cognitive function. Diagnosis and treatment reviewed. Prognosis remains poor. No evident pain issues.Comfort objective being achieved.VSS Plan: Current treatment continued as ongoing
--- NOTE | 2024-12-11 15:37 | PC.SS ---
Room visit: Resident is laying in bed with head of the bed elevated with call light properly placed with no signs of distress. Resident is well groomed with call light properly placed. Resident has no changes in care and condition, to remain in subacute care and will have all subacute care needs met by staff. SSD will continue to make daily contact with resident and monitor for changes in mood and behavior.
[2024-12-12] VITALS (10 sets, daily range): BP systolic 96–134; BP diastolic 64–76; PULSE 60–87; RESP 16–21; TEMP 36.2–36.7; O2SAT 95–98
[2024-12-12] MEDS: PROPRANOLOL 20 MG TABLET GT ×2 (05:29→21:02)
[2024-12-12] MEDS: DEX/HYPRO/GLY ARTIFICAL TEARS 225 DROP/15 ML BTL BOTH EYES ×2 (08:23→20:54)
[2024-12-12] MEDS: SENNOSIDES 8.6 MG TABLET GT ×2 (08:23→20:53)
[2024-12-12] MEDS: DEXLANSOPRAZOLE 30 MG PO (08:23)
[2024-12-12] MEDS: MULTIVITAMIN W MINERALS 1 EACH TABLET GT (08:24)
[2024-12-12] MEDS: FISH OIL 1200 MG GT (08:24)
[2024-12-12] MEDS: MAGNESIUM HYDROXIDE 30 ML ORAL SUSP ML GT (20:55)
[2024-12-13] VITALS (10 sets, daily range): BP systolic 97–114; BP diastolic 59–69; PULSE 62–76; RESP 16–20; TEMP 36.4–36.8; O2SAT 92–99
[2024-12-13] MEDS: PROPRANOLOL 20 MG TABLET GT ×3 (05:19→21:08)
[2024-12-13] MEDS: DEXLANSOPRAZOLE 30 MG PO (08:43)
[2024-12-13] MEDS: SENNOSIDES 8.6 MG TABLET GT ×2 (08:43→20:44)
[2024-12-13] MEDS: DEX/HYPRO/GLY ARTIFICAL TEARS 225 DROP/15 ML BTL BOTH EYES ×2 (08:43→20:44)
[2024-12-13] MEDS: FISH OIL 1200 MG GT (08:44)
[2024-12-13] MEDS: LOSARTAN 25 MG TABLET GT (08:44)
[2024-12-13] MEDS: MULTIVITAMIN W MINERALS 1 EACH TABLET GT (08:46)
[2024-12-14] VITALS (10 sets, daily range): BP systolic 94–144; BP diastolic 58–78; PULSE 64–99; RESP 18–20; TEMP 36.4–36.8; O2SAT 95–99
[2024-12-14] MEDS: DEX/HYPRO/GLY ARTIFICAL TEARS 225 DROP/15 ML BTL BOTH EYES ×2 (08:43→20:45)
[2024-12-14] MEDS: SENNOSIDES 8.6 MG TABLET GT ×2 (08:43→20:44)
[2024-12-14] MEDS: DEXLANSOPRAZOLE 30 MG PO (08:44)
[2024-12-14] MEDS: FISH OIL 1200 MG GT (08:44)
[2024-12-14] MEDS: MULTIVITAMIN W MINERALS 1 EACH TABLET GT (08:45)
[2024-12-14] MEDS: BISACODYL 10 MG SUPP.RECT PR (11:00)
--- NOTE | 2024-12-14 12:06 | PC.NURSE ---
Resident's daughter Arlene, Called to get update about her fathe Mr. Hinds. Update provided. Answered all of her questions to her satisfaction.
[2024-12-14] MEDS: PROPRANOLOL 20 MG TABLET GT (21:15)
[2024-12-15] VITALS (10 sets, daily range): BP systolic 97–116; BP diastolic 60–74; PULSE 59–80; RESP 16–20; TEMP 36.7–37; O2SAT 94–98
[2024-12-15] MEDS: SENNOSIDES 8.6 MG TABLET GT ×2 (08:10→20:47)
[2024-12-15] MEDS: DEX/HYPRO/GLY ARTIFICAL TEARS 225 DROP/15 ML BTL BOTH EYES ×2 (08:10→20:47)
[2024-12-15] MEDS: DEXLANSOPRAZOLE 30 MG PO (08:11)
[2024-12-15] MEDS: FISH OIL 1200 MG GT (08:11)
[2024-12-15] MEDS: LOSARTAN 25 MG TABLET GT (08:12)
[2024-12-15] MEDS: MULTIVITAMIN W MINERALS 1 EACH TABLET GT (08:13)
[2024-12-15] MEDS: PROPRANOLOL 20 MG TABLET GT (21:10)
--- NOTE | 2024-12-15 22:19 | PD.SAPROG ---
Progress Note - SubAcute DIAGNOSIS (1) Traumatic brain injury: Status: Chronic (2) Anoxic brain damage, not elsewhere classified: Status: Chronic (3) Tracheostomy status: Status: Chronic (4) Gastrostomy status: Status: Chronic (5) Chronic respiratory failure: Status: Chronic SUBJECTIVE Fever:: none GI:: none Shortness of Breath:: none GI:: no complaints Pain:: none OBJECTIVE Most recent vital signs: Last Vital Signs Temp 98.6 F 12/15/24 17:48 Pulse 80 12/15/24 17:48 Resp 20 12/15/24 17:48 BP 116/74 12/15/24 17:48 Pulse Ox 98 12/15/24 17:48 O2 Del Method Blow-by 12/15/24 17:48 O2 Flow Rate 10 12/15/24 10:52 FiO2 35 12/15/24 10:52 Neurological:: awake Speech:: none Answers questions:: sometimes (Sometimes opens eyes to command.) Respiratory:: lungs clear Cardiovascular: RRR Abdomen: soft and nontender Extremities:: deformities Decubitus:: none Tracheostomy:: to blow by Feeding per:: G tube Complaints:: none ASSESSMENT & PLAN Assessment: Stable status. No improvement in cognitive function. Diagnosis and treatment reviewed. Prognosis remains poor. No evident pain issues.Comfort objective being achieved.VSS Plan: Current treatment continued as ongoing
[2024-12-16] VITALS (11 sets, daily range): BP systolic 92–116; BP diastolic 58–73; PULSE 57–100; RESP 18–20; TEMP 36.4–36.8; O2SAT 95–100
[2024-12-16] MEDS: PROPRANOLOL 20 MG TABLET GT (05:24)
[2024-12-16] MEDS: FISH OIL 1200 MG GT (08:45)
[2024-12-16] MEDS: DEXLANSOPRAZOLE 30 MG PO (08:45)
[2024-12-16] MEDS: LOSARTAN 25 MG TABLET GT (08:45)
[2024-12-16] MEDS: DEX/HYPRO/GLY ARTIFICAL TEARS 225 DROP/15 ML BTL BOTH EYES ×2 (08:45→21:08)
[2024-12-16] MEDS: SENNOSIDES 8.6 MG TABLET GT ×2 (08:45→21:07)
[2024-12-16] MEDS: MULTIVITAMIN W MINERALS 1 EACH TABLET GT (08:47)
[2024-12-17] VITALS (9 sets, daily range): BP systolic 98–111; BP diastolic 68–73; PULSE 60–71; RESP 17–18; TEMP 36.1–36.7; O2SAT 97–99
[2024-12-17] MEDS: MAGNESIUM HYDROXIDE 30 ML ORAL SUSP ML GT (00:06)
[2024-12-17] MEDS: PROPRANOLOL 20 MG TABLET GT ×3 (05:21→20:59)
[2024-12-17] MEDS: FISH OIL 1200 MG GT (09:04)
[2024-12-17] MEDS: DEXLANSOPRAZOLE 30 MG PO (09:04)
[2024-12-17] MEDS: DEX/HYPRO/GLY ARTIFICAL TEARS 225 DROP/15 ML BTL BOTH EYES ×2 (09:04→20:59)
[2024-12-17] MEDS: SENNOSIDES 8.6 MG TABLET GT ×2 (09:05→20:59)
[2024-12-17] MEDS: MULTIVITAMIN W MINERALS 1 EACH TABLET GT (09:05)
--- NOTE | 2024-12-17 14:09 | PC.SS ---
Resident received ashes for taye Saturday, RP gave permission for resident to participate. Ashes provided by spiritual care team with paraffin plant operator.
[2024-12-18] VITALS (11 sets, daily range): BP systolic 90–128; BP diastolic 61–75; PULSE 54–77; RESP 18–21; TEMP 36.4–36.7; O2SAT 98
[2024-12-18] MEDS: PROPRANOLOL 20 MG TABLET GT ×2 (05:25→21:00)
[2024-12-18] MEDS: DEXLANSOPRAZOLE 30 MG PO (08:22)
[2024-12-18] MEDS: DEX/HYPRO/GLY ARTIFICAL TEARS 225 DROP/15 ML BTL BOTH EYES ×2 (08:22→21:00)
[2024-12-18] MEDS: FISH OIL 1200 MG GT (08:22)
[2024-12-18] MEDS: SENNOSIDES 8.6 MG TABLET GT ×2 (08:23→21:00)
[2024-12-18] MEDS: MULTIVITAMIN W MINERALS 1 EACH TABLET GT (08:23)
--- NOTE | 2024-12-18 11:50 | PC.NURSE ---
Room visit greet resident call light in place no signs of distress room clean
--- NOTE | 2024-12-18 14:09 | PC.SS ---
Room visit: Resident is laying in bed with head of the bed elevated with call light properly placed with no signs of distress. Resident is unable to make needs known as he has absence of speech, his daughter is his decision maker. Resident has no changes in care or condition, he will remain in current care on blow by with trach in place and GT for medication and nutrition. Resident will continue to have all subacute care needs met by staff. This SSD will continue to make daily contact with resident and monitor for changes in mood and behavior.
[2024-12-19] VITALS (9 sets, daily range): BP systolic 98–110; BP diastolic 61–71; PULSE 56–80; RESP 18–20; TEMP 36.2–36.7; O2SAT 96–100
[2024-12-19] MEDS: PROPRANOLOL 20 MG TABLET GT ×2 (05:41→21:36)
[2024-12-19] MEDS: DEX/HYPRO/GLY ARTIFICAL TEARS 225 DROP/15 ML BTL BOTH EYES ×2 (08:35→20:01)
[2024-12-19] MEDS: DEXLANSOPRAZOLE 30 MG PO (08:35)
[2024-12-19] MEDS: FISH OIL 1200 MG GT (08:36)
[2024-12-19] MEDS: SENNOSIDES 8.6 MG TABLET GT ×2 (08:36→21:36)
[2024-12-19] MEDS: MULTIVITAMIN W MINERALS 1 EACH TABLET GT (08:36)
--- NOTE | 2024-12-19 20:44 | PD.SAPROG ---
Progress Note - SubAcute DIAGNOSIS (1) Traumatic brain injury: Status: Chronic (2) Anoxic brain damage, not elsewhere classified: Status: Chronic (3) Tracheostomy status: Status: Chronic (4) Gastrostomy status: Status: Chronic (5) Chronic respiratory failure: Status: Chronic SUBJECTIVE Fever:: none GI:: none Shortness of Breath:: none GI:: no complaints Pain:: none OBJECTIVE Most recent vital signs: Last Vital Signs Temp 97.8 F 12/19/24 17:52 Pulse 80 12/19/24 17:52 Resp 19 12/19/24 17:52 BP 106/70 12/19/24 17:52 Pulse Ox 100 12/19/24 17:52 O2 Del Method Blow-by 12/19/24 17:52 O2 Flow Rate 10 12/19/24 07:35 FiO2 35 12/19/24 07:35 Neurological:: awake Speech:: none Answers questions:: sometimes (Sometimes opens eyes to command.) Respiratory:: lungs clear Cardiovascular: RRR Abdomen: soft and nontender Extremities:: deformities Decubitus:: none Tracheostomy:: to blow by Feeding per:: G tube Complaints:: none ASSESSMENT & PLAN Assessment: Stable status. No improvement in cognitive function. Diagnosis and treatment reviewed. Prognosis remains poor. No evident pain issues.Comfort objective being achieved.VSS Plan: Current treatment continued as ongoing
[2024-12-20] VITALS (10 sets, daily range): BP systolic 94–126; BP diastolic 61–81; PULSE 56–87; RESP 17–20; TEMP 36.2–36.5; O2SAT 98–100
[2024-12-20] MEDS: PROPRANOLOL 20 MG TABLET GT ×2 (05:20→14:31)
[2024-12-20] MEDS: LOSARTAN 25 MG TABLET GT (09:40)
[2024-12-20] MEDS: FISH OIL 1200 MG GT (09:40)
[2024-12-20] MEDS: DEXLANSOPRAZOLE 30 MG PO (09:40)
[2024-12-20] MEDS: DEX/HYPRO/GLY ARTIFICAL TEARS 225 DROP/15 ML BTL BOTH EYES ×2 (09:40→20:59)
[2024-12-20] MEDS: MULTIVITAMIN W MINERALS 1 EACH TABLET GT (09:41)
[2024-12-20] MEDS: SENNOSIDES 8.6 MG TABLET GT ×2 (09:42→21:00)
[2024-12-20] MEDS: MAGNESIUM HYDROXIDE 30 ML ORAL SUSP ML GT (21:04)
[2024-12-21] VITALS (11 sets, daily range): BP systolic 95–122; BP diastolic 59–80; PULSE 56–87; RESP 17–20; TEMP 36.3–36.7; O2SAT 98–100
[2024-12-21] MEDS: PROPRANOLOL 20 MG TABLET GT ×2 (05:39→21:11)
[2024-12-21] MEDS: DEX/HYPRO/GLY ARTIFICAL TEARS 225 DROP/15 ML BTL BOTH EYES ×2 (09:01→20:40)
[2024-12-21] MEDS: FISH OIL 1200 MG GT (09:03)
[2024-12-21] MEDS: SENNOSIDES 8.6 MG TABLET GT ×2 (09:03→20:40)
[2024-12-21] MEDS: DEXLANSOPRAZOLE 30 MG PO (09:03)
[2024-12-21] MEDS: MULTIVITAMIN W MINERALS 1 EACH TABLET GT (09:03)
[2024-12-21] MEDS: BISACODYL 10 MG SUPP.RECT PR (23:55)
[2024-12-22] VITALS (9 sets, daily range): BP systolic 96–110; BP diastolic 59–71; PULSE 61–75; RESP 18–20; TEMP 36.3; O2SAT 95–98
[2024-12-22] MEDS: PROPRANOLOL 20 MG TABLET GT ×2 (05:29→21:07)
[2024-12-22] MEDS: SENNOSIDES 8.6 MG TABLET GT ×2 (08:53→21:06)
[2024-12-22] MEDS: MULTIVITAMIN W MINERALS 1 EACH TABLET GT (08:54)
[2024-12-22] MEDS: DEXLANSOPRAZOLE 30 MG PO (08:54)
[2024-12-22] MEDS: FISH OIL 1200 MG GT (08:54)
[2024-12-22] MEDS: DEX/HYPRO/GLY ARTIFICAL TEARS 225 DROP/15 ML BTL BOTH EYES ×2 (08:54→21:06)
[2024-12-23] VITALS (10 sets, daily range): BP systolic 94–124; BP diastolic 54–74; PULSE 50–76; RESP 17–20; TEMP 36.1–36.3; O2SAT 96–99
[2024-12-23] MEDS: PROPRANOLOL 20 MG TABLET GT ×3 (05:22→21:11)
--- NOTE | 2024-12-23 06:07 | PC.NURSE ---
Cipro eye drops for right eye redness and drainage not given this shoft due to pending delivery. Call placed to pharmacy and order re-faxed as requested. Charge nurse notified and will report to oncoming shift. Right eye remains red with no drainage noted.
[2024-12-23] MEDS: DEX/HYPRO/GLY ARTIFICAL TEARS 225 DROP/15 ML BTL BOTH EYES ×2 (09:57→20:46)
[2024-12-23] MEDS: FISH OIL 1200 MG GT (09:58)
[2024-12-23] MEDS: LOSARTAN 25 MG TABLET GT (09:58)
[2024-12-23] MEDS: DEXLANSOPRAZOLE 30 MG PO (09:58)
[2024-12-23] MEDS: SENNOSIDES 8.6 MG TABLET GT ×2 (09:59→20:46)
[2024-12-23] MEDS: MULTIVITAMIN W MINERALS 1 EACH TABLET GT (09:59)
--- NOTE | 2024-12-23 14:20 | PD.SAPROG ---
Progress Note - SubAcute DIAGNOSIS (1) Traumatic brain injury: Status: Chronic (2) Anoxic brain damage, not elsewhere classified: Status: Chronic (3) Tracheostomy status: Status: Chronic (4) Gastrostomy status: Status: Chronic (5) Chronic respiratory failure: Status: Chronic SUBJECTIVE Fever:: none GI:: none Shortness of Breath:: none GI:: no complaints Pain:: none OBJECTIVE Most recent vital signs: Last Vital Signs Temp 99.5 F 12/27/24 17:57 Pulse 66 12/27/24 21:01 Resp 18 12/27/24 17:57 BP 132/81 H 12/27/24 21:01 Pulse Ox 99 12/27/24 17:57 O2 Del Method Blow-by 12/27/24 17:57 O2 Flow Rate 10 12/27/24 16:47 FiO2 35 12/27/24 16:47 Neurological:: awake Speech:: none Answers questions:: sometimes (Sometimes opens eyes to command.) Respiratory:: lungs clear Cardiovascular: RRR Abdomen: soft and nontender Extremities:: deformities Decubitus:: none Tracheostomy:: to blow by Feeding per:: G tube Complaints:: none ASSESSMENT & PLAN Assessment: Stable status. No improvement in cognitive function. Diagnosis and treatment reviewed. Prognosis remains poor. No evident pain issues.Comfort objective being achieved.VSS Plan: Current treatment continued as ongoing
[2024-12-23] MEDS: CIPROFLOXACIN HCL 1 DROP RIGHT EYE (21:11)
[2024-12-24] VITALS (10 sets, daily range): BP systolic 95–112; BP diastolic 61–72; PULSE 52–78; RESP 16–20; TEMP 36.4–36.6; O2SAT 93–98
[2024-12-24] MEDS: CIPROFLOXACIN HCL 1 DROP RIGHT EYE ×3 (05:20→21:25)
[2024-12-24] MEDS: DEXLANSOPRAZOLE 30 MG PO (08:49)
[2024-12-24] MEDS: DEX/HYPRO/GLY ARTIFICAL TEARS 225 DROP/15 ML BTL BOTH EYES ×2 (08:49→20:54)
[2024-12-24] MEDS: LOSARTAN 25 MG TABLET GT (08:50)
[2024-12-24] MEDS: FISH OIL 1200 MG GT (08:50)
[2024-12-24] MEDS: SENNOSIDES 8.6 MG TABLET GT ×2 (08:51→20:54)
[2024-12-24] MEDS: MULTIVITAMIN W MINERALS 1 EACH TABLET GT (08:51)
--- NOTE | 2024-12-24 20:04 | PC.NURSE ---
made aware of eye culture results, no WBC seen, new order to complete Cipro eye drops for a total of 4 days and then DC order, resident in room resting, HOB elevated, resident continues to have redness to right eye, no drainage noted, no s/s of distress noted at thist time.
[2024-12-24] MEDS: MAGNESIUM HYDROXIDE 30 ML ORAL SUSP ML GT (21:34)
[2024-12-25] VITALS (11 sets, daily range): BP systolic 99–137; BP diastolic 65–84; PULSE 57–88; RESP 18–20; TEMP 36.1–36.5; O2SAT 94–99
[2024-12-25] MEDS: CIPROFLOXACIN HCL 1 DROP RIGHT EYE ×3 (05:16→21:31)
[2024-12-25] MEDS: PROPRANOLOL 20 MG TABLET GT ×2 (05:16→14:09)
[2024-12-25] MEDS: DEX/HYPRO/GLY ARTIFICAL TEARS 225 DROP/15 ML BTL BOTH EYES ×2 (09:04→20:47)
[2024-12-25] MEDS: LOSARTAN 25 MG TABLET GT (09:06)
[2024-12-25] MEDS: FISH OIL 1200 MG GT (09:06)
[2024-12-25] MEDS: DEXLANSOPRAZOLE 30 MG PO (09:06)
[2024-12-25] MEDS: SENNOSIDES 8.6 MG TABLET GT ×2 (09:07→20:48)
[2024-12-25] MEDS: MULTIVITAMIN W MINERALS 1 EACH TABLET GT (09:07)
--- NOTE | 2024-12-25 14:40 | PC.SS ---
Room visit: Resident is laying in bed with head of the bed elevated with call light properly placed with no signs of distress. Resident has no changes in condition, remains on blow by with trach in place and GT for medication and nutrition. Resident is unable to make needs known, decision maker is his daughter. Resident will remain in current care and will continue to have all subacute care needs met by staff. This SSD will make daily contact with resident and will monitor for changes in mood and behavior
[2024-12-25] MEDS: BISACODYL 10 MG SUPP.RECT PR (20:57)
[2024-12-26] VITALS (9 sets, daily range): BP systolic 116–125; BP diastolic 56–89; PULSE 60–101; RESP 16–20; TEMP 36.1–37.8; O2SAT 97–98
[2024-12-26] MEDS: MAG HYDROX/ALUMINUM HYD/SIMETH 355 ML BTL 30 ML PO (00:02)
--- NOTE | 2024-12-26 00:51 | PC.NURSE ---
Resident noted with emesis x2 of bile content, charge nurse notified, feeding held and PRN Mylanta given as ordered. No residule noted. Vital signs within normal limits.
[2024-12-26] MEDS: CIPROFLOXACIN HCL 1 DROP RIGHT EYE ×3 (05:11→21:13)
[2024-12-26] MEDS: PROPRANOLOL 20 MG TABLET GT ×3 (05:11→21:15)
[2024-12-26] MEDS: ONDANSETRON HCL 4 MG TABLET PO (07:55)
[2024-12-26] MEDS: DEX/HYPRO/GLY ARTIFICAL TEARS 225 DROP/15 ML BTL BOTH EYES ×2 (08:21→20:40)
[2024-12-26] MEDS: DEXLANSOPRAZOLE 30 MG PO (08:22)
[2024-12-26] MEDS: LOSARTAN 25 MG TABLET GT (08:22)
[2024-12-26] MEDS: FISH OIL 1200 MG GT (08:22)
[2024-12-26] MEDS: MULTIVITAMIN W MINERALS 1 EACH TABLET GT (08:22)
[2024-12-26] MEDS: SENNOSIDES 8.6 MG TABLET GT ×2 (08:22→20:41)
--- NOTE | 2024-12-26 10:59 | XR_ITS ---
Examination: Abdomen AP single view Technique: AP portable supine abdomen, single view INDICATION: Abdominal pain. Exam date and time: 12/26/2024, 10:23 AM FINDINGS: Study limited by overlying bony structures. Nonspecific bowel gas pattern. No definite masses. IMPRESSION: Limited study. Nonspecific bowel gas pattern. Diffuse fecal material seen within the colon
--- NOTE | 2024-12-26 11:00 | PC.NURSE ---
Resident had x 2 emesis bile like color at NOC shift. Resident had emesis around 07:55 today and was given Zofran . DECAL APPLIER reported that resident had another episode of emesis. No residual noted. No s/s of respiratory distress. Abdomen soft and non tender. Resident had a bowel movement medium soft last night. V/S taken as follows: 100.o Rectal, 76, 20, 125/82, O2 sat 95%. Called Dr Ham and made aware with new orders received to hold the tube feeding and give NS to flush his gtube instead of water, and do cbc, cmp, abdominal x-ray.
[2024-12-26 11:29] LABS: Basophils # (Auto) 0.1 Thou/mm3 (0.0-0.2); Basophils % (Auto) 0 % (0-2.5); Eosinophils # (Auto) 0.0 Thou/mm3 (0.0-0.5); Eosinophils % (Auto) 0 % (0-10); Hematocrit 42.8 % (41.0-53.0); Hemoglobin 15.0 g/dL (13.5-16.0); Immature Granulocytes Auto 0.11 Thou/mm3 (0.00-0.00); Lymphocytes # (Auto) 1.1 Thou/mm3 (1.0-4.8); Lymphocytes % (Auto) 4 % (10-50); Mean Corpuscular HGB Conc 35.0 g/dl (31.0-37.0); Mean Corpuscular Hemoglobin 32.1 pg (25.0-35.0); Mean Corpuscular Volume 92 fL (80-100); Monocytes # (Auto) 1.4 Thou/mm3 (0.0-0.8); Monocytes % (Auto) 5 % (0-12); Neutrophils # (Auto) 23.9 Thou/mm3 (1.8-7.7); Neutrophils % (Auto) 90 % (37-80); Nucleated Red Blood Cell # 0.00 Thou/mm3 (0.00-0.00); Nucleated Red Blood Cell % 0 /100 WBC (0); Platelet Count 290 Thou/mm3 (140-440); RDW Standard Deviation 41.2 fL (35.1-43.9); Red Blood Count 4.67 Miln/mm3 (4.50-5.90); White Blood Count 26.5 Thou/mm3 (3.8-10.6)
[2024-12-26 11:44] LABS: Alanine Aminotransferase 25 U/L (10-49); Albumin, Serum 4.0 gm/dL (3.5-5.0); Albumin/Globulin Ratio 1.2 (1.2-2.2); Alkaline Phosphatase 122 U/L (46-116); Anion Gap 8 (7-16); Aspartate Amino Transferase 19 U/L (0-34); BUN/Creatinine Ratio 14 Ratio (12-20); Bilirubin,Total 1.0 mg/dL (0.3-1.2); Blood Urea Nitrogen 11 mg/dL (9-23); Calcium 9.6 mg/dL (8.3-10.6); Calcium (Corrected) 9.6 mg/dL (8.5-10.1); Carbon Dioxide 29.9 mMol/L (20.0-31.0); Chloride 99 mMol/L (98-107); Creatinine (Component) 0.8 mg/dL (0.6-1.3); Estimated Creatinine Clearance 102.1 mL/min (>60); Globulin 3.3 gm/dL (2.3-3.5); Glucose 147 mg/dL (74-106); Osmolality,Calculated 276 (275-295); Potassium 4.5 mMol/L (3.4-5.1); Sodium 137 mMol/L (136-145); Total Protein 7.3 gm/dL (5.7-8.2); eGFR > 60 See Note
--- NOTE | 2024-12-26 12:17 | PC.NURSE ---
Resident's abdominal xray result diffuse fecal material seen within the colon. Called Dr Ham and verbally reported result , CMP results WNL. Reported to MD resident's CBC results with WBC of 26.5. Remains stable at this time. No s/s of respiratory distress noted. Order received from Dr Ham to give fleet enema. If no vomiting noted within 4 hours , slowly start the tube feeding at the rate of 30 ml/hr and slowly increase by 10 ml very 8 hours until he reached his goal rate of 60 ml/hr as per
[2024-12-26] MEDS: SODIUM PHOSPHATE,MONO-DIBASIC 133 ML ENEMA PR (12:38)
--- NOTE | 2024-12-26 15:12 | PC.NURSE ---
Called resident's daughter Arlene and gave update about the resident. V/S taken as follows: 115/76, 20, 99.5, O2 sat 96%.
--- NOTE | 2024-12-26 15:27 | PC.NURSE ---
Called resident's daughter Arlene , gave updates about the resident and the new orders.
[2024-12-27] VITALS (12 sets, daily range): BP systolic 93–132; BP diastolic 55–81; PULSE 58–76; RESP 12–19; TEMP 37.5–38.1; O2SAT 97–99
[2024-12-27] MEDS: CIPROFLOXACIN HCL 1 DROP RIGHT EYE ×2 (05:15→13:41)
[2024-12-27] MEDS: PROPRANOLOL 20 MG TABLET GT ×2 (05:15→21:01)
[2024-12-27] MEDS: DEX/HYPRO/GLY ARTIFICAL TEARS 225 DROP/15 ML BTL BOTH EYES ×2 (08:48→21:00)
[2024-12-27] MEDS: MULTIVITAMIN W MINERALS 1 EACH TABLET GT (08:49)
[2024-12-27] MEDS: SENNOSIDES 8.6 MG TABLET GT ×2 (08:49→21:00)
[2024-12-27] MEDS: FISH OIL 1200 MG GT (08:50)
[2024-12-27] MEDS: DEXLANSOPRAZOLE 30 MG PO (08:50)
[2024-12-27] MEDS: ONDANSETRON HCL 4 MG TABLET PO (10:50)
[2024-12-27] MEDS: ACETAMINOPHEN 325 MG TABLET 650 MG GT (14:20)
--- NOTE | 2024-12-27 23:28 | XR_ITS ---
Examination: AP chest single view Technique one AP portable semiupright chest single view Exam date and time: December 27, 2024 at 11:40 PM Comparison December 04, 2024 Indications: Dark secretions today Findings: Bilateral early perihilar right basilar pneumonia Normal heart size Tracheostomy tube tip 4.4 cm above josue Impression: Early bilateral perihilar right basilar pneumonia
[2024-12-27 23:54] LABS: Collection Type, Urine Catheter
[2024-12-28] VITALS (11 sets, daily range): BP systolic 84–102; BP diastolic 56–60; PULSE 62–74; RESP 16–21; TEMP 37.3–38.1; O2SAT 90–99
[2024-12-28 00:04] LABS: Bilirubin,Urine Negative (Negative); Blood,Urine 1+ (Negative); Clarity,Urine Turbid (Clear/Hazy); Color,Urine Yellow (Lt Yel-Yel); Glucose, Urine Negative (Negative); Ketones,Urine Negative (Negative); Leukocyte Esterase,Urine Positive (Negative); Nitrite,Urine Negative (Negative); PH,Urine 6.0 (5.0-7.0); Protein,Urine Trace (Neg - Trace); RBC,Urine 19 /hpf (0-3); Specific Gravity,Urine 1.023 (1.001-1.035); Squamous Epithelial Cell,Urine < 1 /hpf (0-5); Urobilinogen,Urine 2.0 mg/dL (0.0-1.0); WBC,Urine 65 /hpf (0-5)
[2024-12-28 00:06] LABS: Culture Indicated,Urine Yes
[2024-12-28] MEDS: ACETAMINOPHEN 325 MG TABLET 650 MG GT (00:10)
[2024-12-28 00:11] LABS: COVID-19 Antigen (In-House) Negative (Negative); Influenza A Ag Negative; Influenza B Ag Negative
[2024-12-28 00:48] LABS: Basophils # (Auto) 0.0 Thou/mm3 (0.0-0.2); Basophils % (Auto) 0 % (0-2.5); Eosinophils # (Auto) 0.0 Thou/mm3 (0.0-0.5); Eosinophils % (Auto) 0 % (0-10); Hematocrit 41.1 % (41.0-53.0); Hemoglobin 14.0 g/dL (13.5-16.0); Immature Granulocytes Auto 0.07 Thou/mm3 (0.00-0.00); Lymphocytes # (Auto) 1.4 Thou/mm3 (1.0-4.8); Lymphocytes % (Auto) 7 % (10-50); Mean Corpuscular HGB Conc 34.1 g/dl (31.0-37.0); Mean Corpuscular Hemoglobin 32.0 pg (25.0-35.0); Mean Corpuscular Volume 94 fL (80-100); Monocytes # (Auto) 2.3 Thou/mm3 (0.0-0.8); Monocytes % (Auto) 12 % (0-12); Neutrophils # (Auto) 15.7 Thou/mm3 (1.8-7.7); Neutrophils % (Auto) 80 % (37-80); Nucleated Red Blood Cell # 0.00 Thou/mm3 (0.00-0.00); Nucleated Red Blood Cell % 0 /100 WBC (0); Platelet Count 204 Thou/mm3 (140-440); RDW Standard Deviation 44.4 fL (35.1-43.9); Red Blood Count 4.37 Miln/mm3 (4.50-5.90); White Blood Count 19.5 Thou/mm3 (3.8-10.6)
[2024-12-28 02:02] LABS: Procalcitonin 0.15 ng/ml (0.0-0.49)
[2024-12-28] MEDS: IBUPROFEN 100 MG/5 ML ORAL.SUSP 200 MG GT (02:02)
[2024-12-28 03:59] LABS: Path Review Blood Smear Sent to Pathologist
[2024-12-28] MEDS: PROPRANOLOL 20 MG TABLET GT (05:44)
--- NOTE | 2024-12-28 06:56 | PC.NURSE ---
Resident had elevated temp of 100.6 rectally, notified Dr Ham-temp protocol initiated, urine, sputum, covid and flu samples sent to lab. Tube feeding was increased to 60 ml/hr-goal rate with no residuals or emesis noted. Chest x-ray obtained per Dr Ham, pending results.
[2024-12-28] MEDS: DEX/HYPRO/GLY ARTIFICAL TEARS 225 DROP/15 ML BTL BOTH EYES (08:40)
[2024-12-28] MEDS: DEXLANSOPRAZOLE 30 MG PO (08:40)
[2024-12-28] MEDS: FISH OIL 1200 MG GT (08:42)
[2024-12-28] MEDS: MULTIVITAMIN W MINERALS 1 EACH TABLET GT (08:43)
[2024-12-28] MEDS: SENNOSIDES 8.6 MG TABLET GT (08:43)
--- NOTE | 2024-12-28 09:36 | PC.NURSE ---
Mr. Hinds v/s 99.6-63-22-84/56-99% on 50% BB. MD was informed for vitals, advised to give 300ml of Normal Saline and transfer to ED for further evaluation and treatment. ED was notified of facility transfer, and update provided to triage nurse. Transfer documents provided and sent. Family, and Admin notified.
--- NOTE | 2024-12-28 12:54 | PC.SS ---
Resident sent out to ED, transfer notice emailed to foster and TANA Hinds.
--- NOTE | 2024-12-29 13:41 | PC.SS ---
This SSD spoke with resident daughter Arlene Hinds regarding transfer notice and 7 day bed hold. Arlene states when resident returns she would like to change his code status. Arlene stated when resident was transferred out to ER she misunderstood and thought she was told resident was being DC from facility. This SSD was able to clarify. Arlene acknowledged receiving them and is fully aware and understand process. Arlene stated she spoke with MD caring for resident and said she had a good conversation that offered her clarity. This SSD will follow up with resident and RP upon his return.
--- NOTE | 2024-12-31 19:31 | PD.SAPROG ---
Progress Note - SubAcute DIAGNOSIS (1) Traumatic brain injury: Status: Chronic (2) Anoxic brain damage, not elsewhere classified: Status: Chronic (3) Tracheostomy status: Status: Chronic (4) Gastrostomy status: Status: Chronic (5) Chronic respiratory failure: Status: Chronic SUBJECTIVE Fever:: none GI:: none Shortness of Breath:: none GI:: no complaints Pain:: none OBJECTIVE Most recent vital signs: Last Vital Signs Temp 99.6 F 12/28/24 08:30 Pulse 63 12/28/24 09:00 Resp 21 H 12/28/24 09:00 BP 84/56 L 12/28/24 08:42 Pulse Ox 99 12/28/24 09:00 O2 Del Method Blow-by 12/28/24 05:51 O2 Flow Rate 10 12/28/24 09:00 FiO2 50 12/28/24 09:00 Neurological:: awake Speech:: none Answers questions:: sometimes (Sometimes opens eyes to command.) Respiratory:: lungs clear Cardiovascular: RRR Abdomen: soft and nontender Extremities:: deformities Decubitus:: none Tracheostomy:: to blow by Feeding per:: G tube Complaints:: none ASSESSMENT & PLAN Assessment: Stable status. No improvement in cognitive function. Diagnosis and treatment reviewed. Prognosis remains poor. No evident pain issues.Comfort objective being achieved.VSS Plan: Current treatment continued as ongoing
[2025-01-01 12:46] VITALS: BP 103/64; PULSE 84; RESP 19; TEMP 36.6
--- NOTE | 2025-01-01 13:30 | PC.SS ---
Resident daughter Arlene Hinds RP at bedside, she stated she would like to change resident code status from FULL CODE to DNR with selective treatment still send out to acute care as needed. No questions or concerns at this time. Charge nurse notified of code status change.
[2025-01-01 14:53] VITALS: BP 105/64; PULSE 78
[2025-01-01] MEDS: PROPRANOLOL 20 MG TABLET GT ×2 (14:53→21:17)
[2025-01-01] MEDS: MIDODRINE 10 MG TABLET GT (14:53)
--- NOTE | 2025-01-01 15:05 | PC.NURSE ---
Resident came back from the hospital around 12:06 via bed with RT and PANTRY WORKER and with his daughter. Resident with new orders for Augmentin BID x 7 days and Levaquin 750 mg IV daily x 5 days. No s/s of respiratory distress noted. Resident's daughter Arlene changed resident's code status to DNR. Called and notified Dr Ham that resident came back and the new orders. Discussed with MD about resident's medicines, resident is on propranolol TID and with a new order for midodrine TID and MD said it's okay .
--- NOTE | 2025-01-01 15:15 | PC.NURSE ---
Resident came back on Jevity at 30 ml/hr, TF to advance by 10 ml every 8 hours (due at 16:00) until goal rate of 60 ml/hr , with autoflush of 25ml/hr. Called RD technical operations vice president and made aware of it and he said okay to follow the discharge order and continue the 400 minimum q shift from nursing.
[2025-01-01 17:44] VITALS: BP 117/78; PULSE 61; RESP 20; TEMP 37.6; O2SAT 98
--- NOTE | 2025-01-01 18:15 | PC.NURSE ---
Resident arrived to the unit at 1210, initial assessment done by MILTON Johnston. Vital signs BP 103/64 HR 54 RR 17 Temp 98 F, no signs of pain or discomfort noted at this time.
[2025-01-01 19:59] VITALS: PULSE 68; RESP 20; O2SAT 97
[2025-01-01] MEDS: DEX/HYPRO/GLY ARTIFICAL TEARS 225 DROP/15 ML BTL BOTH EYES (21:16)
[2025-01-01] MEDS: AMOX/CLAV POT 875 MG 1 EACH TABLET GT (21:16)
[2025-01-01 21:17] VITALS: BP 111/73; PULSE 60
[2025-01-01] MEDS: SENNOSIDES 8.6 MG TABLET GT (21:17)
--- NOTE | 2025-01-01 21:40 | PD.SAPROG ---
Progress Note - SubAcute DIAGNOSIS (1) Traumatic brain injury: Status: Chronic (2) Anoxic brain damage, not elsewhere classified: Status: Chronic (3) Tracheostomy status: Status: Chronic (4) Gastrostomy status: Status: Chronic (5) Chronic respiratory failure: Status: Chronic (6) UTI (urinary tract infection): Status: Acute (7) Right middle lobe pneumonia: Status: Acute SUBJECTIVE Fever:: none GI:: none Shortness of Breath:: none GI:: no complaints Pain:: none OBJECTIVE Most recent vital signs: Last Vital Signs Temp 98.2 F 01/03/25 06:00 Pulse 60 01/03/25 17:00 Resp 18 01/03/25 17:00 BP 103/65 01/03/25 13:45 Pulse Ox 100 01/03/25 17:00 O2 Del Method Blow-by 01/02/25 05:51 O2 Flow Rate 10 01/03/25 17:00 FiO2 40 01/03/25 17:00 Neurological:: awake Speech:: none Answers questions:: sometimes (Sometimes opens eyes to command.) Respiratory:: lungs clear Cardiovascular: RRR Abdomen: soft and nontender Extremities:: deformities Decubitus:: none Tracheostomy:: to blow by Feeding per:: G tube Complaints:: none ASSESSMENT & PLAN Assessment: Stable status. No improvement in cognitive function. Pt was transferred to Acute care on 12-28-24 for fever and w/u revealed Enterococcus UTI and Pneumonia with Proteus and providencia and responded to antibiotics and was received back in [facility] on 01-01-25 on Levaquin and Augmentin for completion of course for a week. Diagnosis and treatment reviewed. Prognosis remains poor. No evident pain issues.Comfort objective being achieved.VSS Plan: Current treatment continued as ongoing
--- NOTE | 2025-01-01 22:36 | PC.NURSE ---
Antibiotics for PNA and UTI ongoing. No adverse reaction noted. IV to R) hand intact, no redness noted. Voided x1 clear yellow urine, no foul odor noted. Respirations even and unlabored with SpO2 @96% on 10L and 40% FiO2 via blow by. Bilateral lungs with scattered rhonchi throughout upper and lower bases. Fluids tolerated well via g-tube.
[2025-01-02] VITALS (9 sets, daily range): BP systolic 116–131; BP diastolic 65–84; PULSE 53–85; RESP 16–18; TEMP 36.1–36.4; O2SAT 94–100
[2025-01-02] MEDS: DEX/HYPRO/GLY ARTIFICAL TEARS 225 DROP/15 ML BTL BOTH EYES ×2 (08:53→20:55)
[2025-01-02] MEDS: AMOX/CLAV POT 875 MG 1 EACH TABLET GT ×2 (08:53→20:54)
[2025-01-02] MEDS: LOSARTAN 25 MG TABLET GT (08:54)
[2025-01-02] MEDS: DEXLANSOPRAZOLE 30 MG PO (08:54)
[2025-01-02] MEDS: FISH OIL 1200 MG GT (08:54)
[2025-01-02] MEDS: SENNOSIDES 8.6 MG TABLET GT ×2 (08:56→20:55)
[2025-01-02] MEDS: MULTIVITAMIN W MINERALS 1 EACH TABLET GT (08:56)
[2025-01-02] MEDS: NON-FORMULARY *SEE COMMENTS* 1 EA EA 750 EA IV (09:15)
[2025-01-02] MEDS: MIDODRINE 10 MG TABLET GT (13:57)
[2025-01-02] MEDS: PROPRANOLOL 20 MG TABLET GT ×2 (13:58→21:01)
--- NOTE | 2025-01-02 18:25 | PC.NURSE ---
Resident continues to receive ABX Amoxicilin 875 mg BID via G-tube and Levaquin 750 Bid mg IV for Pneumonia & UTI. No adverse reactions noticed. Afebrile, vital signs within normal parameters. Call light within reach.
[2025-01-03] VITALS (10 sets, daily range): BP systolic 103–157; BP diastolic 65–90; PULSE 58–76; RESP 16–20; TEMP 36.1–36.8; O2SAT 96–100
--- NOTE | 2025-01-03 03:56 | PC.NURSE ---
Levaquin IV and Augmentin GT for PNA and UTI ongoing. No adverse reaction noted. IV to R) hand intact, no redness noted. Respirations even and unlabored with SpO2 @95% on 10L and 40% FiO2 via blow by. No fever noted.
[2025-01-03] MEDS: PROPRANOLOL 20 MG TABLET GT ×3 (05:17→20:59)
[2025-01-03] MEDS: AMOX/CLAV POT 875 MG 1 EACH TABLET GT ×2 (08:47→20:56)
[2025-01-03] MEDS: MULTIVITAMIN W MINERALS 1 EACH TABLET GT (08:48)
[2025-01-03] MEDS: DEXLANSOPRAZOLE 30 MG PO (08:48)
[2025-01-03] MEDS: DEX/HYPRO/GLY ARTIFICAL TEARS 225 DROP/15 ML BTL BOTH EYES ×2 (08:48→20:58)
[2025-01-03] MEDS: LOSARTAN 25 MG TABLET GT (08:48)
[2025-01-03] MEDS: SENNOSIDES 8.6 MG TABLET GT ×2 (08:48→20:58)
[2025-01-03] MEDS: FISH OIL 1200 MG GT (08:48)
[2025-01-03] MEDS: NON-FORMULARY *SEE COMMENTS* 1 EA EA 750 EA IV (09:41)
[2025-01-03] MEDS: MIDODRINE 10 MG TABLET GT (13:45)
[2025-01-04] VITALS (9 sets, daily range): BP systolic 93–120; BP diastolic 58–78; PULSE 58–80; RESP 16–20; TEMP 36.2–36.3; O2SAT 95–97; BMI 24.5
--- NOTE | 2025-01-04 00:56 | PC.NURSE ---
Resident on Levaquin IV daily and Augmentin 875mg BID via GTube, no side effects noted or adverse reaction, respirations even and unlabored, resident continues with yellow color secretions, afebrile, 24G IV to right hand, no s/s of infiltration or infection, call light within reach, HOB elevated, no s/s of distress at this time.
[2025-01-04] MEDS: PROPRANOLOL 20 MG TABLET GT ×3 (05:12→21:15)
--- NOTE | 2025-01-04 05:35 | PC.NURSE ---
Antibiotics ongoing for pneumonia and UTI. No adverse reaction noted. Occasional productive cough noted with tracheal secretions noted yellow and suctioned as needed. Fluids tolerated well via g-tube. Bilateral lungs with noted scattered rhonchi. SpO2 @ 95% on 10L with 40% FiO2 via blow by. Voiding clear yellow urine via brief with no hematuria or foul odor noted.
[2025-01-04] MEDS: AMOX/CLAV POT 875 MG 1 EACH TABLET GT ×2 (08:55→21:12)
[2025-01-04] MEDS: SENNOSIDES 8.6 MG TABLET GT ×2 (08:56→21:13)
[2025-01-04] MEDS: FISH OIL 1200 MG GT (08:56)
[2025-01-04] MEDS: DEXLANSOPRAZOLE 30 MG PO (08:56)
[2025-01-04] MEDS: MULTIVITAMIN W MINERALS 1 EACH TABLET GT (08:56)
[2025-01-04] MEDS: DEX/HYPRO/GLY ARTIFICAL TEARS 225 DROP/15 ML BTL BOTH EYES ×2 (08:56→21:13)
[2025-01-04] MEDS: NON-FORMULARY *SEE COMMENTS* 1 EA EA 750 EA IV (08:59)
[2025-01-04] MEDS: MIDODRINE 10 MG TABLET GT ×2 (14:20→21:14)
--- NOTE | 2025-01-04 16:38 | PC.NURSE ---
Resident continues on antibiotics for PNA and UTI, Amox/K clav 1 tab 875-125 per gtube twice daily, no adverse reactions noted, VS stable, afebrile, continue to monitor
--- NOTE | 2025-01-04 19:44 | ESPR_ITS ---
Progress Note - SubAcute DIAGNOSIS (1) Traumatic brain injury: Status: Chronic (2) Anoxic brain damage, not elsewhere classified: Status: Chronic (3) Tracheostomy status: Status: Chronic (4) Gastrostomy status: Status: Chronic (5) Chronic respiratory failure: Status: Chronic (6) UTI (urinary tract infection): Status: Acute (7) Right middle lobe pneumonia: Status: Acute SUBJECTIVE Fever:: none GI:: none Shortness of Breath:: none GI:: no complaints Pain:: none OBJECTIVE Most recent vital signs: Last Vital Signs Temp 97.3 F 01/04/25 17:49 Pulse 66 01/04/25 17:49 Resp 18 01/04/25 17:49 BP 106/69 01/04/25 17:49 Pulse Ox 95 01/04/25 17:49 O2 Del Method Blow-by 01/04/25 17:49 O2 Flow Rate 10 01/04/25 17:15 FiO2 40 01/04/25 17:15 Neurological:: awake Speech:: none Answers questions:: sometimes (Sometimes opens eyes to command.) Respiratory:: lungs clear Cardiovascular: RRR Abdomen: soft and nontender Extremities:: deformities Decubitus:: none Tracheostomy:: to blow by Feeding per:: G tube Complaints:: none ASSESSMENT & PLAN Assessment: Stable status. No improvement in cognitive function. Pt was transferred to Acute care on 12-28-24 for fever and w/u revealed Enterococcus UTI and Pneumonia with Proteus and providencia and responded to antibiotics and was received back in [facility] on 01-01-25 on Levaquin and Augmentin for completion of course for a week. Diagnosis and treatment reviewed. Prognosis remains poor. No evident pain issues.Comfort objective being achieved.VSS Plan: Current treatment continued as ongoing
--- NOTE | 2025-01-04 22:58 | PC.NURSE ---
Antibiotics ongoing for pneumonia and UTI. No adverse reaction noted. Fluids tolerated well via g-tube. Bilateral lungs with noted rhonchi throughout lung smith. SpO2 @96% on 10L with 40% FiO2 via blow-by. Productive cough of yellow secretions noted and suctioned via trachea. Voiding sufficient amount of yellow urine via brief with no hematurina or foul odor noted.
[2025-01-05] VITALS (10 sets, daily range): BP systolic 98–114; BP diastolic 56–75; PULSE 52–76; RESP 18–22; TEMP 35.9–36.4; O2SAT 93–98
[2025-01-05] MEDS: PROPRANOLOL 20 MG TABLET GT ×2 (05:11→13:35)
--- NOTE | 2025-01-05 06:27 | PC.NURSE ---
Resident remains on Levaquin and Augmentin for UTI and PNA, no side effects noted
[2025-01-05] MEDS: MULTIVITAMIN W MINERALS 1 EACH TABLET GT (08:25)
[2025-01-05] MEDS: FISH OIL 1200 MG GT (08:25)
[2025-01-05] MEDS: DEX/HYPRO/GLY ARTIFICAL TEARS 225 DROP/15 ML BTL BOTH EYES ×2 (08:26→21:19)
[2025-01-05] MEDS: AMOX/CLAV POT 875 MG 1 EACH TABLET GT ×2 (08:26→21:19)
[2025-01-05] MEDS: DEXLANSOPRAZOLE 30 MG PO (08:26)
[2025-01-05] MEDS: SENNOSIDES 8.6 MG TABLET GT ×2 (08:35→21:20)
[2025-01-05] MEDS: NON-FORMULARY *SEE COMMENTS* 1 EA EA 750 EA IV (09:00)
[2025-01-05] MEDS: MIDODRINE 10 MG TABLET GT ×2 (13:35→21:20)
--- NOTE | 2025-01-05 17:10 | PC.NURSE ---
Resident continues on antibiotics for PNA and UTI, no adverse reactions noted, VS stable, afebrile, 02@10L 40% via blow by, suction prn, bed in low position, call light in reach
[2025-01-05] MEDS: MAGNESIUM HYDROXIDE 30 ML ORAL SUSP ML GT (21:26)
[2025-01-06] VITALS (9 sets, daily range): BP systolic 91–113; BP diastolic 60–79; PULSE 63–81; RESP 17–20; TEMP 35.9–36.2; O2SAT 95–99
--- NOTE | 2025-01-06 03:05 | PC.NURSE ---
Resident continues with Levaquin 750mg IV daily and Augmentin 875mg Gtube BID for UTI and PNA, resident remains afebrile, new IV placed to left foot due to previous IV infiltration, 24G IV to left foot, no s/s of infiltration or infection, no side effects or adverse reaction noted, resident in room resting with eyes closed, call light within reach, no s/s of distress.
[2025-01-06] MEDS: PROPRANOLOL 20 MG TABLET GT ×3 (05:24→21:09)
[2025-01-06] MEDS: MIDODRINE 10 MG TABLET GT ×3 (05:24→21:08)
[2025-01-06] MEDS: AMOX/CLAV POT 875 MG 1 EACH TABLET GT ×2 (09:04→20:41)
[2025-01-06] MEDS: DEXLANSOPRAZOLE 30 MG PO (09:05)
[2025-01-06] MEDS: FISH OIL 1200 MG GT (09:05)
[2025-01-06] MEDS: DEX/HYPRO/GLY ARTIFICAL TEARS 225 DROP/15 ML BTL BOTH EYES ×2 (09:05→20:45)
[2025-01-06] MEDS: SENNOSIDES 8.6 MG TABLET GT ×2 (09:07→20:46)
[2025-01-06] MEDS: MULTIVITAMIN W MINERALS 1 EACH TABLET GT (09:07)
[2025-01-07] VITALS (11 sets, daily range): BP systolic 97–119; BP diastolic 59–70; PULSE 62–79; RESP 17–21; TEMP 36.1–36.4; O2SAT 97–98
[2025-01-07] MEDS: MIDODRINE 10 MG TABLET GT ×3 (05:18→21:07)
[2025-01-07] MEDS: PROPRANOLOL 20 MG TABLET GT ×3 (05:19→21:08)
--- NOTE | 2025-01-07 07:49 | PC.SS ---
Room visit: Resident is laying in bed with head of the bed elevated with call light properly placed with no signs of distress. Resident is non verbal, unable to make needs known. Resident is represented by his daughter. Resident will remain in current care as he has no changes in care or condition. He remains on blow by with trach in place and GT for medication and nutrition. This SSD will continue to make daily contact with resident and will monitor for changes in mood and behavior.
[2025-01-07] MEDS: AMOX/CLAV POT 875 MG 1 EACH TABLET GT ×2 (09:10→20:41)
[2025-01-07] MEDS: SENNOSIDES 8.6 MG TABLET GT ×2 (09:11→20:41)
[2025-01-07] MEDS: FISH OIL 1200 MG GT (09:11)
[2025-01-07] MEDS: MULTIVITAMIN W MINERALS 1 EACH TABLET GT (09:11)
[2025-01-07] MEDS: DEX/HYPRO/GLY ARTIFICAL TEARS 225 DROP/15 ML BTL BOTH EYES ×2 (09:11→20:41)
[2025-01-07] MEDS: DEXLANSOPRAZOLE 30 MG PO (09:11)
--- NOTE | 2025-01-07 15:24 | PC.SS ---
This SSD received call from bart Caballero regarding a call she received from Arlene Hinds resident daughter and RP. Her concern was surrounding resident being transferred to acute care. Arlene states she did not receive a call, her sister did receive a call informing her of the transfer. Resident said she was concerned she was not receiving any updates while resident was in acute care. Bart informed her this facility does not have any control over what happens in ER or in patient side of hospital. Arlene also mentioned to bart her request to have resident moved closer to home in [place]. This SSD informed bart Arlene came in for a visit when resident return from acute care and stated she was grateful resident was here as she is proud resident has not had any skin issue in the years he has been here. Arlene was also explained by this SSD the confusion in calling her sister to notify her of the transfer and not her. Arlene understood the confusion and accepted it. This SSD assured her all charge nurse know to call her first. This SSD informed bart there would be a follow up call with Arlene to confirm all her concerns and correct or help with any new request. DON to be notified.
[2025-01-08] VITALS (9 sets, daily range): BP systolic 104–113; BP diastolic 61–80; PULSE 58–74; RESP 16–18; TEMP 36.1–36.6; O2SAT 97–98
[2025-01-08] MEDS: MIDODRINE 10 MG TABLET GT ×3 (05:30→21:05)
[2025-01-08] MEDS: PROPRANOLOL 20 MG TABLET GT ×3 (05:31→21:05)
[2025-01-08] MEDS: DEXLANSOPRAZOLE 30 MG PO (08:43)
[2025-01-08] MEDS: LOSARTAN 25 MG TABLET GT (08:43)
[2025-01-08] MEDS: DEX/HYPRO/GLY ARTIFICAL TEARS 225 DROP/15 ML BTL BOTH EYES ×2 (08:43→21:03)
[2025-01-08] MEDS: MULTIVITAMIN W MINERALS 1 EACH TABLET GT (08:44)
[2025-01-08] MEDS: FISH OIL 1200 MG GT (08:45)
[2025-01-08] MEDS: SENNOSIDES 8.6 MG TABLET GT ×2 (08:45→21:05)
[2025-01-08] MEDS: AMOX/CLAV POT 875 MG 1 EACH TABLET GT (09:16)
--- NOTE | 2025-01-08 09:26 | PC.NURSE ---
Trach site redness resolved. RT on duty made aware for them to resume trach care
--- NOTE | 2025-01-08 14:36 | PC.SS ---
This SSD called RP Arlene Hinds to follow up with her regarding her concerns she expressed to foster. Arlene said all is well she did have questions regarding the process of taking resident home and training. We also discussed the process of having resident transferred to a facility closer to home. Arlene did say she is grateful for [facility] as resident has not had any skin issues and has been well cared for. She stated she has heard bad stories of others experiences and she is grateful she or resident have not experienced anything of this sort. This SSD informed Arlene if at anytime she would like a referral sent to a subacute closer to home to reach out to this SSD. Arlene agreed and said she had no other questions or concerns.
[2025-01-09] VITALS (9 sets, daily range): BP systolic 96–107; BP diastolic 60–70; PULSE 60–86; RESP 16–20; TEMP 36.2; O2SAT 97–99
[2025-01-09] MEDS: PROPRANOLOL 20 MG TABLET GT (05:10)
[2025-01-09] MEDS: MIDODRINE 10 MG TABLET GT ×3 (05:10→21:15)
[2025-01-09] MEDS: DEX/HYPRO/GLY ARTIFICAL TEARS 225 DROP/15 ML BTL BOTH EYES ×2 (09:03→21:15)
[2025-01-09] MEDS: SENNOSIDES 8.6 MG TABLET GT ×2 (09:04→21:15)
[2025-01-09] MEDS: MULTIVITAMIN W MINERALS 1 EACH TABLET GT (09:04)
[2025-01-09] MEDS: DEXLANSOPRAZOLE 30 MG PO (09:05)
[2025-01-09] MEDS: FISH OIL 1200 MG GT (09:05)
--- NOTE | 2025-01-09 20:02 | ESPR_ITS ---
Progress Note - SubAcute DIAGNOSIS (1) Traumatic brain injury: Status: Chronic (2) Anoxic brain damage, not elsewhere classified: Status: Chronic (3) Tracheostomy status: Status: Chronic (4) Gastrostomy status: Status: Chronic (5) Chronic respiratory failure: Status: Chronic (6) UTI (urinary tract infection): Status: Acute (7) Right middle lobe pneumonia: Status: Acute SUBJECTIVE Fever:: none GI:: none Shortness of Breath:: none GI:: no complaints Pain:: none OBJECTIVE Most recent vital signs: Last Vital Signs Temp 97.2 F 01/09/25 18:00 Pulse 60 01/09/25 18:00 Resp 17 01/09/25 18:00 BP 96/61 01/09/25 18:00 Pulse Ox 98 01/09/25 18:00 O2 Del Method Blow-by 01/09/25 06:00 O2 Flow Rate 10 01/09/25 06:48 FiO2 35 01/09/25 06:48 Neurological:: awake Speech:: none Answers questions:: sometimes (Sometimes opens eyes to command.) Respiratory:: lungs clear Cardiovascular: RRR Abdomen: soft and nontender Extremities:: deformities Decubitus:: none Tracheostomy:: to blow by Feeding per:: G tube Complaints:: none ASSESSMENT & PLAN Assessment: Stable status. No improvement in cognitive function. Pt was transferred to Acute care on 12-28-24 for fever and w/u revealed Enterococcus UTI and Pneumonia with Proteus and providencia and responded to antibiotics and was received back in [facility] on 01-01-25 on Levaquin and Augmentin for completion of course for a week. Diagnosis and treatment reviewed. Prognosis remains poor. No evident pain issues.Comfort objective being achieved.VSS Plan: Current treatment continued as ongoing
[2025-01-10] VITALS (10 sets, daily range): BP systolic 94–105; BP diastolic 56–68; PULSE 61–78; RESP 16–20; TEMP 36–36.6; O2SAT 96–98
[2025-01-10] MEDS: MIDODRINE 10 MG TABLET GT ×3 (05:01→21:01)
[2025-01-10] MEDS: DEX/HYPRO/GLY ARTIFICAL TEARS 225 DROP/15 ML BTL BOTH EYES ×2 (09:03→20:22)
[2025-01-10] MEDS: FISH OIL 1200 MG GT (09:05)
[2025-01-10] MEDS: SENNOSIDES 8.6 MG TABLET GT ×2 (09:05→20:22)
[2025-01-10] MEDS: MULTIVITAMIN W MINERALS 1 EACH TABLET GT (09:05)
[2025-01-10] MEDS: DEXLANSOPRAZOLE 30 MG PO (09:05)
[2025-01-11] VITALS (11 sets, daily range): BP systolic 97–114; BP diastolic 62–73; PULSE 61–83; RESP 17–19; TEMP 35.9–36.6; O2SAT 94–98
[2025-01-11] MEDS: MIDODRINE 10 MG TABLET GT ×2 (05:25→13:18)
[2025-01-11] MEDS: DEX/HYPRO/GLY ARTIFICAL TEARS 225 DROP/15 ML BTL BOTH EYES ×2 (08:10→20:46)
[2025-01-11] MEDS: DEXLANSOPRAZOLE 30 MG GT (08:11)
[2025-01-11] MEDS: FISH OIL 1200 MG GT (08:11)
[2025-01-11] MEDS: SENNOSIDES 8.6 MG TABLET GT ×2 (08:13→20:47)
[2025-01-11] MEDS: MULTIVITAMIN W MINERALS 1 EACH TABLET GT (08:13)
[2025-01-11] MEDS: PROPRANOLOL 20 MG TABLET GT ×2 (13:19→21:00)
[2025-01-12] VITALS (8 sets, daily range): BP systolic 98–114; BP diastolic 59–72; PULSE 57–88; RESP 17–20; TEMP 36.4–36.6; O2SAT 97–98
[2025-01-12] MEDS: PROPRANOLOL 20 MG TABLET GT ×2 (05:47→14:29)
[2025-01-12] MEDS: MIDODRINE 10 MG TABLET GT ×3 (05:47→21:07)
[2025-01-12] MEDS: DEXLANSOPRAZOLE 30 MG GT (08:38)
[2025-01-12] MEDS: FISH OIL 1200 MG GT (08:38)
[2025-01-12] MEDS: DEX/HYPRO/GLY ARTIFICAL TEARS 225 DROP/15 ML BTL BOTH EYES ×2 (08:38→20:59)
[2025-01-12] MEDS: SENNOSIDES 8.6 MG TABLET GT ×2 (08:39→21:00)
[2025-01-12] MEDS: MULTIVITAMIN W MINERALS 1 EACH TABLET GT (08:39)
[2025-01-12] MEDS: MAGNESIUM HYDROXIDE 30 ML ORAL SUSP ML GT (10:37)
[2025-01-13] VITALS (10 sets, daily range): BP systolic 92–112; BP diastolic 57–74; PULSE 61–88; RESP 17–20; TEMP 36.1–36.3; O2SAT 98–99
[2025-01-13] MEDS: BISACODYL 10 MG SUPP.RECT PR
[2025-01-13] MEDS: MIDODRINE 10 MG TABLET GT ×3 (05:11→21:17)
[2025-01-13] MEDS: PROPRANOLOL 20 MG TABLET GT ×3 (05:12→21:17)
[2025-01-13] MEDS: DEX/HYPRO/GLY ARTIFICAL TEARS 225 DROP/15 ML BTL BOTH EYES ×2 (08:53→20:55)
[2025-01-13] MEDS: DEXLANSOPRAZOLE 30 MG GT (08:54)
[2025-01-13] MEDS: FISH OIL 1200 MG GT (08:55)
[2025-01-13] MEDS: LOSARTAN 25 MG TABLET GT (08:55)
[2025-01-13] MEDS: MULTIVITAMIN W MINERALS 1 EACH TABLET GT (08:55)
[2025-01-13] MEDS: SENNOSIDES 8.6 MG TABLET GT ×2 (08:55→20:55)
--- NOTE | 2025-01-13 20:53 | PD.SAPROG ---
Progress Note - SubAcute DIAGNOSIS (1) Traumatic brain injury: Status: Chronic (2) Anoxic brain damage, not elsewhere classified: Status: Chronic (3) Tracheostomy status: Status: Chronic (4) Gastrostomy status: Status: Chronic (5) Chronic respiratory failure: Status: Chronic (6) UTI (urinary tract infection): Status: Acute (7) Right middle lobe pneumonia: Status: Acute SUBJECTIVE Fever:: none GI:: none Shortness of Breath:: none GI:: no complaints Pain:: none OBJECTIVE Most recent vital signs: Last Vital Signs Temp 96.9 F 01/13/25 17:52 Pulse 80 01/13/25 19:45 Resp 20 01/13/25 19:45 BP 92/57 L 01/13/25 17:52 Pulse Ox 98 01/13/25 19:45 O2 Del Method Blow-by 01/12/25 18:00 O2 Flow Rate 10 01/13/25 19:45 FiO2 35 01/13/25 19:45 Neurological:: awake Speech:: none Answers questions:: sometimes (Sometimes opens eyes to command.) Respiratory:: lungs clear Cardiovascular: RRR Abdomen: soft and nontender Extremities:: deformities Decubitus:: none Tracheostomy:: to blow by Feeding per:: G tube Complaints:: none ASSESSMENT & PLAN Assessment: Stable status. No improvement in cognitive function. Pt was transferred to Acute care on 12-28-24 for fever and w/u revealed Enterococcus UTI and Pneumonia with Proteus and providencia and responded to antibiotics and was received back in [facility] on 01-01-25 on Levaquin and Augmentin for completion of course for a week. Diagnosis and treatment reviewed. Prognosis remains poor. No evident pain issues.Comfort objective being achieved.VSS Plan: Current treatment continued as ongoing
[2025-01-14] VITALS (9 sets, daily range): BP systolic 99–116; BP diastolic 64–73; PULSE 50–76; RESP 18–20; TEMP 36.1–36.6; O2SAT 94–98
[2025-01-14] MEDS: MIDODRINE 10 MG TABLET GT ×3 (05:23→21:07)
[2025-01-14] MEDS: MULTIVITAMIN W MINERALS 1 EACH TABLET GT (08:04)
[2025-01-14] MEDS: FISH OIL 1200 MG GT (08:04)
[2025-01-14] MEDS: DEX/HYPRO/GLY ARTIFICAL TEARS 225 DROP/15 ML BTL BOTH EYES ×2 (08:05→20:30)
[2025-01-14] MEDS: SENNOSIDES 8.6 MG TABLET GT ×2 (08:05→20:31)
[2025-01-14] MEDS: DEXLANSOPRAZOLE 30 MG GT (08:05)
--- NOTE | 2025-01-14 12:11 | PC.SS ---
Room visit: Resident is laying in bed with head of the bed elevated with call light properly placed with no signs of distress. Resident has absence of speech unable to voice his needs, his daughter is his decision maker. Resident remains on blow by with trach in place and GT for medication and nutrition. Resident will remain in current care and will have all subacute care needs met by staff. This SSD will make daily contact with resident and will monitor for changes in mood and behavior.
[2025-01-14] MEDS: PROPRANOLOL 20 MG TABLET GT ×2 (14:01→21:08)
[2025-01-14] MEDS: MAGNESIUM HYDROXIDE 30 ML ORAL SUSP ML GT (21:45)
[2025-01-15] VITALS (11 sets, daily range): BP systolic 100–120; BP diastolic 59–80; PULSE 60–80; RESP 18–20; TEMP 36.4–36.7; O2SAT 95–98
[2025-01-15] MEDS: MIDODRINE 10 MG TABLET GT ×2 (05:38→13:45)
[2025-01-15] MEDS: PROPRANOLOL 20 MG TABLET GT ×3 (05:39→21:26)
[2025-01-15] MEDS: DEXLANSOPRAZOLE 30 MG GT (07:56)
[2025-01-15] MEDS: DEX/HYPRO/GLY ARTIFICAL TEARS 225 DROP/15 ML BTL BOTH EYES ×2 (07:56→21:24)
[2025-01-15] MEDS: FISH OIL 1200 MG GT (07:57)
[2025-01-15] MEDS: LOSARTAN 25 MG TABLET GT (07:57)
[2025-01-15] MEDS: SENNOSIDES 8.6 MG TABLET GT ×2 (07:58→21:25)
[2025-01-15] MEDS: MULTIVITAMIN W MINERALS 1 EACH TABLET GT (07:58)
[2025-01-16] VITALS (10 sets, daily range): BP systolic 94–110; BP diastolic 62–71; PULSE 57–94; RESP 17–20; TEMP 36.2–37; O2SAT 98–100
[2025-01-16] MEDS: PROPRANOLOL 20 MG TABLET GT ×3 (05:13→21:15)
[2025-01-16] MEDS: MIDODRINE 10 MG TABLET GT ×3 (05:13→21:14)
[2025-01-16] MEDS: DEX/HYPRO/GLY ARTIFICAL TEARS 225 DROP/15 ML BTL BOTH EYES ×2 (08:30→20:31)
[2025-01-16] MEDS: DEXLANSOPRAZOLE 30 MG GT (08:31)
[2025-01-16] MEDS: FISH OIL 1200 MG GT (08:31)
[2025-01-16] MEDS: MULTIVITAMIN W MINERALS 1 EACH TABLET GT (08:31)
[2025-01-16] MEDS: SENNOSIDES 8.6 MG TABLET GT ×2 (09:00→20:32)
[2025-01-17] VITALS (9 sets, daily range): BP systolic 97–142; BP diastolic 63–79; PULSE 60–77; RESP 17–20; TEMP 36.3–36.4; O2SAT 96–98
[2025-01-17] MEDS: MIDODRINE 10 MG TABLET GT ×2 (05:22→14:00)
[2025-01-17] MEDS: DEX/HYPRO/GLY ARTIFICAL TEARS 225 DROP/15 ML BTL BOTH EYES ×2 (08:53→20:39)
[2025-01-17] MEDS: FISH OIL 1200 MG GT (08:54)
[2025-01-17] MEDS: DEXLANSOPRAZOLE 30 MG GT (08:54)
[2025-01-17] MEDS: LOSARTAN 25 MG TABLET GT (08:57)
[2025-01-17] MEDS: SENNOSIDES 8.6 MG TABLET GT ×2 (08:58→20:40)
[2025-01-17] MEDS: MULTIVITAMIN W MINERALS 1 EACH TABLET GT (08:58)
[2025-01-17] MEDS: PROPRANOLOL 20 MG TABLET GT ×2 (14:00→21:19)
[2025-01-18] VITALS (12 sets, daily range): BP systolic 91–124; BP diastolic 57–73; PULSE 55–110; RESP 16–22; TEMP 36.1–36.4; O2SAT 94–99
[2025-01-18] MEDS: PROPRANOLOL 20 MG TABLET GT ×2 (05:05→21:42)
[2025-01-18] MEDS: DEX/HYPRO/GLY ARTIFICAL TEARS 225 DROP/15 ML BTL BOTH EYES ×2 (08:30→21:41)
[2025-01-18] MEDS: FISH OIL 1200 MG GT (08:32)
[2025-01-18] MEDS: DEXLANSOPRAZOLE 30 MG GT (08:32)
[2025-01-18] MEDS: SENNOSIDES 8.6 MG TABLET GT ×2 (08:32→21:42)
[2025-01-18] MEDS: MULTIVITAMIN W MINERALS 1 EACH TABLET GT (08:32)
[2025-01-18] MEDS: MIDODRINE 10 MG TABLET GT (14:03)
--- NOTE | 2025-01-18 20:56 | ESPR_ITS ---
Progress Note - SubAcute DIAGNOSIS (1) Traumatic brain injury: Status: Chronic (2) Anoxic brain damage, not elsewhere classified: Status: Chronic (3) Tracheostomy status: Status: Chronic (4) Gastrostomy status: Status: Chronic (5) Chronic respiratory failure: Status: Chronic (6) UTI (urinary tract infection): Status: Acute (7) Right middle lobe pneumonia: Status: Acute SUBJECTIVE Fever:: none GI:: none Shortness of Breath:: none GI:: no complaints Pain:: none OBJECTIVE Most recent vital signs: Last Vital Signs Temp 97.2 F 01/18/25 18:00 Pulse 69 01/18/25 18:18 Resp 20 01/18/25 18:18 BP 110/73 01/18/25 18:00 Pulse Ox 97 01/18/25 18:18 O2 Del Method Blow-by 01/18/25 18:00 O2 Flow Rate 10 01/18/25 18:18 FiO2 35 01/18/25 18:18 Neurological:: awake Speech:: none Answers questions:: sometimes (Sometimes opens eyes to command.) Respiratory:: lungs clear Cardiovascular: RRR Abdomen: soft and nontender Extremities:: deformities Decubitus:: none Tracheostomy:: to blow by Feeding per:: G tube Complaints:: none ASSESSMENT & PLAN Assessment: Stable status. No improvement in cognitive function. Pt was transferred to Acute care on 12-28-24 for fever and w/u revealed Enterococcus UTI and Pneumonia with Proteus and providencia and responded to antibiotics and was received back in [facility] on 01-01-25 on Levaquin and Augmentin for completion of course for a week. Diagnosis and treatment reviewed. Prognosis remains poor. No evident pain issues.Comfort objective being achieved.VSS Plan: Current treatment continued as ongoing
[2025-01-18] MEDS: MAGNESIUM HYDROXIDE 30 ML ORAL SUSP ML GT (21:43)
[2025-01-19] VITALS (9 sets, daily range): BP systolic 97–112; BP diastolic 65–76; PULSE 66–85; RESP 17–20; TEMP 36.2–36.5; O2SAT 96–99
[2025-01-19] MEDS: PROPRANOLOL 20 MG TABLET GT ×3 (05:14→21:22)
[2025-01-19] MEDS: DEX/HYPRO/GLY ARTIFICAL TEARS 225 DROP/15 ML BTL BOTH EYES ×2 (09:39→21:21)
[2025-01-19] MEDS: DEXLANSOPRAZOLE 30 MG GT (09:41)
[2025-01-19] MEDS: LOSARTAN 25 MG TABLET GT (09:41)
[2025-01-19] MEDS: FISH OIL 1200 MG GT (09:41)
[2025-01-19] MEDS: SENNOSIDES 8.6 MG TABLET GT ×2 (09:42→21:22)
[2025-01-19] MEDS: MULTIVITAMIN W MINERALS 1 EACH TABLET GT (09:42)
[2025-01-19] MEDS: MIDODRINE 10 MG TABLET GT ×2 (13:24→21:22)
--- NOTE | 2025-01-19 23:20 | ESPR_ITS ---
Progress Note - SubAcute DIAGNOSIS (1) Traumatic brain injury: Status: Chronic (2) Anoxic brain damage, not elsewhere classified: Status: Chronic (3) Tracheostomy status: Status: Chronic (4) Gastrostomy status: Status: Chronic (5) Chronic respiratory failure: Status: Chronic (6) UTI (urinary tract infection): Status: Acute (7) Right middle lobe pneumonia: Status: Acute SUBJECTIVE Fever:: none GI:: none Shortness of Breath:: none GI:: no complaints Pain:: none OBJECTIVE Most recent vital signs: Last Vital Signs Temp 97.7 F 01/19/25 17:51 Pulse 66 01/19/25 21:22 Resp 20 01/19/25 19:55 BP 108/65 01/19/25 21:22 Pulse Ox 96 01/19/25 19:55 O2 Del Method Blow-by 01/19/25 06:00 O2 Flow Rate 10 01/19/25 19:55 FiO2 35 01/19/25 19:55 Neurological:: awake Speech:: none Answers questions:: sometimes (Sometimes opens eyes to command.) Respiratory:: lungs clear Cardiovascular: RRR Abdomen: soft and nontender Extremities:: deformities Decubitus:: none Tracheostomy:: to blow by Feeding per:: G tube Complaints:: none ASSESSMENT & PLAN Assessment: Stable status. No improvement in cognitive function. Pt was transferred to Acute care on 12-28-24 for fever and w/u revealed Enterococcus UTI and Pneumonia with Proteus and providencia and responded to antibiotics and was received back in [facility] on 01-01-25 on Levaquin and Augmentin for completion of course for a week. Diagnosis and treatment reviewed. Prognosis remains poor. No evident pain issues.Comfort objective being achieved.VSS Plan: Current treatment continued as ongoing
[2025-01-20] VITALS (9 sets, daily range): BP systolic 98–132; BP diastolic 60–74; PULSE 55–82; RESP 17–18; TEMP 35.9–36.5; O2SAT 95–98
[2025-01-20] MEDS: MIDODRINE 10 MG TABLET GT (05:17)
[2025-01-20] MEDS: DEX/HYPRO/GLY ARTIFICAL TEARS 225 DROP/15 ML BTL BOTH EYES ×2 (09:00→20:43)
[2025-01-20] MEDS: FISH OIL 1200 MG GT (09:01)
[2025-01-20] MEDS: DEXLANSOPRAZOLE 30 MG GT (09:01)
[2025-01-20] MEDS: LOSARTAN 25 MG TABLET GT (09:01)
[2025-01-20] MEDS: MULTIVITAMIN W MINERALS 1 EACH TABLET GT (09:02)
[2025-01-20] MEDS: SENNOSIDES 8.6 MG TABLET GT ×2 (09:02→20:43)
[2025-01-20] MEDS: PROPRANOLOL 20 MG TABLET GT ×2 (13:10→21:24)
[2025-01-21] VITALS (10 sets, daily range): BP systolic 102–127; BP diastolic 65–78; PULSE 55–81; RESP 17–18; TEMP 36.1–36.5; O2SAT 95–99
[2025-01-21] MEDS: MIDODRINE 10 MG TABLET GT ×2 (05:16→14:38)
[2025-01-21] MEDS: DEXLANSOPRAZOLE 30 MG GT (08:20)
[2025-01-21] MEDS: MULTIVITAMIN W MINERALS 1 EACH TABLET GT (08:20)
[2025-01-21] MEDS: FISH OIL 1200 MG GT (08:20)
[2025-01-21] MEDS: DEX/HYPRO/GLY ARTIFICAL TEARS 225 DROP/15 ML BTL BOTH EYES ×2 (08:20→20:38)
[2025-01-21] MEDS: SENNOSIDES 8.6 MG TABLET GT ×2 (08:21→20:39)
[2025-01-21] MEDS: PROPRANOLOL 20 MG TABLET GT ×2 (14:38→21:16)
[2025-01-22] VITALS (10 sets, daily range): BP systolic 101–133; BP diastolic 65–80; PULSE 60–80; RESP 18–20; TEMP 36.2–36.8; O2SAT 97–99
[2025-01-22] MEDS: PROPRANOLOL 20 MG TABLET GT ×3 (05:18→21:14)
[2025-01-22] MEDS: MIDODRINE 10 MG TABLET GT (05:18)
[2025-01-22] MEDS: DEX/HYPRO/GLY ARTIFICAL TEARS 225 DROP/15 ML BTL BOTH EYES ×2 (08:14→20:53)
[2025-01-22] MEDS: SENNOSIDES 8.6 MG TABLET GT ×2 (08:15→20:54)
[2025-01-22] MEDS: DEXLANSOPRAZOLE 30 MG GT (08:16)
[2025-01-22] MEDS: MULTIVITAMIN W MINERALS 1 EACH TABLET GT (08:16)
[2025-01-22] MEDS: LOSARTAN 25 MG TABLET GT (08:16)
[2025-01-22] MEDS: FISH OIL 1200 MG GT (08:16)
[2025-01-23] VITALS (11 sets, daily range): BP systolic 93–122; BP diastolic 57–77; PULSE 58–776; RESP 17–20; TEMP 36.1–36.6; O2SAT 97–98
[2025-01-23] MEDS: PROPRANOLOL 20 MG TABLET GT ×3 (05:24→21:01)
[2025-01-23] MEDS: DEX/HYPRO/GLY ARTIFICAL TEARS 225 DROP/15 ML BTL BOTH EYES ×2 (08:36→20:43)
[2025-01-23] MEDS: DEXLANSOPRAZOLE 30 MG GT (08:36)
[2025-01-23] MEDS: LOSARTAN 25 MG TABLET GT (08:36)
[2025-01-23] MEDS: FISH OIL 1200 MG GT (08:36)
[2025-01-23] MEDS: MULTIVITAMIN W MINERALS 1 EACH TABLET GT (08:37)
[2025-01-23] MEDS: SENNOSIDES 8.6 MG TABLET GT ×2 (08:37→20:44)
--- NOTE | 2025-01-23 13:35 | ESPR_ITS ---
Progress Note - SubAcute DIAGNOSIS (1) Traumatic brain injury: Status: Chronic (2) Anoxic brain damage, not elsewhere classified: Status: Chronic (3) Tracheostomy status: Status: Chronic (4) Gastrostomy status: Status: Chronic (5) Chronic respiratory failure: Status: Chronic (6) UTI (urinary tract infection): Status: Acute (7) Right middle lobe pneumonia: Status: Acute SUBJECTIVE Fever:: none GI:: none Shortness of Breath:: none GI:: no complaints Pain:: none OBJECTIVE Most recent vital signs: Last Vital Signs Temp 97.7 F 01/24/25 06:00 Pulse 56 L 01/24/25 08:32 Resp 18 01/24/25 06:00 BP 126/66 01/24/25 08:32 Pulse Ox 99 01/24/25 06:00 O2 Del Method Blow-by 01/23/25 06:00 O2 Flow Rate 10 01/23/25 19:48 FiO2 35 01/23/25 19:48 Neurological:: awake Speech:: none Answers questions:: sometimes (Sometimes opens eyes to command.) Respiratory:: lungs clear Cardiovascular: RRR Abdomen: soft and nontender Extremities:: deformities Decubitus:: none Tracheostomy:: to blow by Feeding per:: G tube Complaints:: none ASSESSMENT & PLAN Assessment: Stable status. No improvement in cognitive function. Pt was transferred to Acute care on 12-28-24 for fever and w/u revealed Enterococcus UTI and Pneumonia with Proteus and providencia and responded to antibiotics and was received back in [facility] on 01-01-25 on Levaquin and Augmentin for completion of course for a week. Diagnosis and treatment reviewed. Prognosis remains poor. No evident pain issues.Comfort objective being achieved.VSS Plan: Current treatment continued as ongoing
[2025-01-23] MEDS: MIDODRINE 10 MG TABLET GT (14:00)
[2025-01-23] MEDS: MAGNESIUM HYDROXIDE 30 ML ORAL SUSP ML GT (20:45)
[2025-01-24] VITALS (9 sets, daily range): BP systolic 95–132; BP diastolic 66–87; PULSE 54–71; RESP 18–20; TEMP 36.2–36.5; O2SAT 93–99
[2025-01-24] MEDS: MIDODRINE 10 MG TABLET GT ×3 (05:10→21:11)
[2025-01-24] MEDS: PROPRANOLOL 20 MG TABLET GT (05:11)
[2025-01-24] MEDS: LOSARTAN 25 MG TABLET GT (08:32)
[2025-01-24] MEDS: DEX/HYPRO/GLY ARTIFICAL TEARS 225 DROP/15 ML BTL BOTH EYES ×2 (08:32→21:10)
[2025-01-24] MEDS: FISH OIL 1200 MG GT (08:32)
[2025-01-24] MEDS: DEXLANSOPRAZOLE 30 MG GT (08:32)
[2025-01-24] MEDS: MULTIVITAMIN W MINERALS 1 EACH TABLET GT (08:33)
[2025-01-24] MEDS: SENNOSIDES 8.6 MG TABLET GT ×2 (08:33→21:10)
[2025-01-25] VITALS (10 sets, daily range): BP systolic 97–119; BP diastolic 62–76; PULSE 55–76; RESP 18–20; TEMP 36.3–36.6; O2SAT 97–100
[2025-01-25] MEDS: MIDODRINE 10 MG TABLET GT ×2 (05:27→13:56)
[2025-01-25] MEDS: PROPRANOLOL 20 MG TABLET GT ×2 (05:27→21:11)
[2025-01-25] MEDS: MULTIVITAMIN W MINERALS 1 EACH TABLET GT (08:52)
[2025-01-25] MEDS: DEX/HYPRO/GLY ARTIFICAL TEARS 225 DROP/15 ML BTL BOTH EYES ×2 (08:52→20:29)
[2025-01-25] MEDS: SENNOSIDES 8.6 MG TABLET GT ×2 (08:52→20:29)
[2025-01-25] MEDS: DEXLANSOPRAZOLE 30 MG GT (08:52)
[2025-01-25] MEDS: FISH OIL 1200 MG GT (08:53)
[2025-01-26] VITALS (10 sets, daily range): BP systolic 90–120; BP diastolic 58–70; PULSE 55–79; RESP 16–20; TEMP 36.2–36.5; O2SAT 97–100
[2025-01-26] MEDS: MIDODRINE 10 MG TABLET GT ×2 (05:11→13:06)
[2025-01-26] MEDS: PROPRANOLOL 20 MG TABLET GT ×2 (05:12→21:11)
[2025-01-26] MEDS: DEXLANSOPRAZOLE 30 MG GT (08:50)
[2025-01-26] MEDS: DEX/HYPRO/GLY ARTIFICAL TEARS 225 DROP/15 ML BTL BOTH EYES ×2 (08:50→20:45)
[2025-01-26] MEDS: FISH OIL 1200 MG GT (08:51)
[2025-01-26] MEDS: LOSARTAN 25 MG TABLET GT (08:51)
[2025-01-26] MEDS: MULTIVITAMIN W MINERALS 1 EACH TABLET GT (08:52)
[2025-01-26] MEDS: SENNOSIDES 8.6 MG TABLET GT ×2 (08:52→20:45)
--- NOTE | 2025-01-26 12:29 | PC.SS ---
Resident seen by DDS for routine dental care, no new orders or recommendations at this time to continue current care.
[2025-01-27] VITALS (9 sets, daily range): BP systolic 92–116; BP diastolic 57–76; PULSE 62–87; RESP 17–21; TEMP 36.1–36.4; O2SAT 94–98
[2025-01-27] MEDS: MIDODRINE 10 MG TABLET GT ×2 (05:27→21:37)
[2025-01-27] MEDS: PROPRANOLOL 20 MG TABLET GT (05:27)
[2025-01-27] MEDS: DEX/HYPRO/GLY ARTIFICAL TEARS 225 DROP/15 ML BTL BOTH EYES ×2 (08:26→20:40)
[2025-01-27] MEDS: DEXLANSOPRAZOLE 30 MG GT (08:27)
[2025-01-27] MEDS: FISH OIL 1200 MG GT (08:27)
[2025-01-27] MEDS: MULTIVITAMIN W MINERALS 1 EACH TABLET GT (08:28)
[2025-01-27] MEDS: SENNOSIDES 8.6 MG TABLET GT ×2 (08:28→20:40)
--- NOTE | 2025-01-27 17:40 | ESPR_ITS ---
Progress Note - SubAcute DIAGNOSIS (1) Traumatic brain injury: Status: Chronic (2) Anoxic brain damage, not elsewhere classified: Status: Chronic (3) Tracheostomy status: Status: Chronic (4) Gastrostomy status: Status: Chronic (5) Chronic respiratory failure: Status: Chronic (6) UTI (urinary tract infection): Status: Acute (7) Right middle lobe pneumonia: Status: Acute SUBJECTIVE Fever:: none GI:: none Shortness of Breath:: none GI:: no complaints Pain:: none OBJECTIVE Most recent vital signs: Last Vital Signs Temp 97.1 F 01/27/25 17:31 Pulse 65 01/27/25 17:31 Resp 20 01/27/25 17:31 BP 92/57 L 01/27/25 17:31 Pulse Ox 98 01/27/25 17:31 O2 Del Method Blow-by 01/26/25 18:00 O2 Flow Rate 10 01/27/25 10:53 FiO2 35 01/27/25 10:53 Neurological:: awake Speech:: none Answers questions:: sometimes (Sometimes opens eyes to command.) Respiratory:: lungs clear Cardiovascular: RRR Abdomen: soft and nontender Extremities:: deformities Decubitus:: none Tracheostomy:: to blow by Feeding per:: G tube Complaints:: none ASSESSMENT & PLAN Assessment: Stable status. No improvement in cognitive function. Pt was transferred to Acute care on 12-28-24 for fever and w/u revealed Enterococcus UTI and Pneumonia with Proteus and providencia and responded to antibiotics and was received back in [facility] on 01-01-25 on Levaquin and Augmentin for completion of course for a week. Diagnosis and treatment reviewed. Prognosis remains poor. No evident pain issues.Comfort objective being achieved.VSS Plan: Current treatment continued as ongoing
[2025-01-28] VITALS (10 sets, daily range): BP systolic 94–127; BP diastolic 63–78; PULSE 60–97; RESP 18–20; TEMP 36.2–36.9; O2SAT 97–98
[2025-01-28] MEDS: PROPRANOLOL 20 MG TABLET GT ×2 (05:28→22:06)
[2025-01-28] MEDS: DEX/HYPRO/GLY ARTIFICAL TEARS 225 DROP/15 ML BTL BOTH EYES ×2 (08:53→20:52)
[2025-01-28] MEDS: DEXLANSOPRAZOLE 30 MG GT (08:53)
[2025-01-28] MEDS: FISH OIL 1200 MG GT (08:53)
[2025-01-28] MEDS: LOSARTAN 25 MG TABLET GT (08:54)
[2025-01-28] MEDS: MULTIVITAMIN W MINERALS 1 EACH TABLET GT (08:54)
[2025-01-28] MEDS: SENNOSIDES 8.6 MG TABLET GT ×2 (08:55→20:52)
[2025-01-28] MEDS: MIDODRINE 10 MG TABLET GT ×2 (14:00→22:05)
[2025-01-29] VITALS (11 sets, daily range): BP systolic 100–117; BP diastolic 63–79; PULSE 50–80; RESP 16–20; TEMP 36.2–37.1; O2SAT 97–99
[2025-01-29] MEDS: MIDODRINE 10 MG TABLET GT (05:20)
[2025-01-29] MEDS: PROPRANOLOL 20 MG TABLET GT ×3 (05:21→21:24)
[2025-01-29] MEDS: DEX/HYPRO/GLY ARTIFICAL TEARS 225 DROP/15 ML BTL BOTH EYES ×2 (09:02→21:24)
[2025-01-29] MEDS: MULTIVITAMIN W MINERALS 1 EACH TABLET GT (09:03)
[2025-01-29] MEDS: SENNOSIDES 8.6 MG TABLET GT ×2 (09:03→21:24)
[2025-01-29] MEDS: MAGNESIUM HYDROXIDE 30 ML ORAL SUSP ML GT (09:04)
[2025-01-29] MEDS: DEXLANSOPRAZOLE 30 MG GT (09:04)
[2025-01-29] MEDS: FISH OIL 1200 MG GT (09:04)
--- NOTE | 2025-01-29 14:51 | PC.SS ---
Resident is laying in bed with head of the bed elevated with call light properly placed with no signs of distress. Resident has trach in place and GT for medication and nutrition. Resident is non verbal unable to make decisions for self. Resident will remain in current care and will continue to have all subacute care needs met by staff. This SSD will make daily contact with resident and will monitor for changes in mood and behavior.
[2025-01-29] MEDS: BISACODYL 10 MG SUPP.RECT PR (21:23)
[2025-01-30] VITALS (10 sets, daily range): BP systolic 93–122; BP diastolic 59–75; PULSE 54–78; RESP 17–20; TEMP 36.1–36.2; O2SAT 92–98
[2025-01-30] MEDS: MIDODRINE 10 MG TABLET GT ×2 (05:11→13:47)
[2025-01-30] MEDS: PROPRANOLOL 20 MG TABLET GT ×2 (05:12→21:30)
[2025-01-30] MEDS: DEX/HYPRO/GLY ARTIFICAL TEARS 225 DROP/15 ML BTL BOTH EYES ×2 (09:13→21:00)
[2025-01-30] MEDS: SENNOSIDES 8.6 MG TABLET GT ×2 (09:14→21:00)
[2025-01-30] MEDS: MULTIVITAMIN W MINERALS 1 EACH TABLET GT (09:14)
[2025-01-30] MEDS: FISH OIL 1200 MG GT (09:15)
[2025-01-30] MEDS: DEXLANSOPRAZOLE 30 MG GT (09:15)
[2025-01-31] VITALS (9 sets, daily range): BP systolic 99–154; BP diastolic 62–84; PULSE 55–75; RESP 16–20; TEMP 36.4–36.9; O2SAT 95–98
[2025-01-31] MEDS: MIDODRINE 10 MG TABLET GT (05:15)
[2025-01-31] MEDS: DEXLANSOPRAZOLE 30 MG GT (08:18)
[2025-01-31] MEDS: DEX/HYPRO/GLY ARTIFICAL TEARS 225 DROP/15 ML BTL BOTH EYES ×2 (08:18→21:52)
[2025-01-31] MEDS: MULTIVITAMIN W MINERALS 1 EACH TABLET GT (08:19)
[2025-01-31] MEDS: FISH OIL 1200 MG GT (08:19)
[2025-01-31] MEDS: SENNOSIDES 8.6 MG TABLET GT ×2 (08:20→21:52)
--- NOTE | 2025-01-31 12:06 | PD.SAPROG ---
Progress Note - SubAcute DIAGNOSIS (1) Traumatic brain injury: Status: Chronic (2) Anoxic brain damage, not elsewhere classified: Status: Chronic (3) Tracheostomy status: Status: Chronic (4) Gastrostomy status: Status: Chronic (5) Chronic respiratory failure: Status: Chronic (6) UTI (urinary tract infection): Status: Acute (7) Right middle lobe pneumonia: Status: Acute SUBJECTIVE Fever:: none GI:: none Shortness of Breath:: none GI:: no complaints Pain:: none OBJECTIVE Most recent vital signs: Last Vital Signs Temp 97.6 F 01/31/25 11:55 Pulse 71 01/31/25 11:55 Resp 17 01/31/25 11:55 BP 105/77 01/31/25 11:55 Pulse Ox 95 01/31/25 06:00 O2 Del Method Blow-by 01/31/25 06:00 O2 Flow Rate 10 01/30/25 21:00 FiO2 35 01/30/25 21:00 Neurological:: awake Speech:: none Answers questions:: sometimes (Sometimes opens eyes to command.) Respiratory:: lungs clear Cardiovascular: RRR Abdomen: soft and nontender Extremities:: deformities Decubitus:: none Tracheostomy:: to blow by Feeding per:: G tube Complaints:: none ASSESSMENT & PLAN Assessment: Stable status. No improvement in cognitive function. Pt was transferred to Acute care on 12-28-24 for fever and w/u revealed Enterococcus UTI and Pneumonia with Proteus and providencia and responded to antibiotics and was received back in [facility] on 01-01-25 on Levaquin and Augmentin for completion of course for a week. Diagnosis and treatment reviewed. Prognosis remains poor. No evident pain issues.Comfort objective being achieved.VSS Plan: Current treatment continued as ongoing
[2025-01-31] MEDS: PROPRANOLOL 20 MG TABLET GT ×2 (13:56→21:51)
--- NOTE | 2025-01-31 14:13 | PC.NURSE ---
Resident noted to have redness to left eye with small yellow thick discharge. Sample from area taken and sent it to lab as per MD protocol order. Will await for further orders from MD. Daughter Arlene at resident's bedside. Informed of procedure. She will be notified if further orders are given by MD. Will await from cultures.
[2025-01-31] MEDS: MAGNESIUM HYDROXIDE 30 ML ORAL SUSP ML GT (17:30)
[2025-02-01] VITALS (9 sets, daily range): BP systolic 107–121; BP diastolic 67–83; PULSE 58–73; RESP 15–20; TEMP 36.1–36.7; O2SAT 95–97; BMI 24.3
[2025-02-01] MEDS: BISACODYL 10 MG SUPP.RECT PR (01:01)
[2025-02-01] MEDS: GENTAMICIN 0.3% OPHTH DROPS 75 DROP/5 ML BTL LEFT EYE ×5 (01:01→21:21)
[2025-02-01] MEDS: MIDODRINE 10 MG TABLET GT (05:34)
[2025-02-01] MEDS: DEX/HYPRO/GLY ARTIFICAL TEARS 225 DROP/15 ML BTL BOTH EYES ×2 (08:49→21:27)
[2025-02-01] MEDS: FISH OIL 1200 MG GT (08:49)
[2025-02-01] MEDS: DEXLANSOPRAZOLE 30 MG GT (08:49)
[2025-02-01] MEDS: MULTIVITAMIN W MINERALS 1 EACH TABLET GT (08:50)
[2025-02-01] MEDS: SENNOSIDES 8.6 MG TABLET GT ×2 (08:50→21:30)
[2025-02-01] MEDS: PROPRANOLOL 20 MG TABLET GT ×2 (14:44→21:25)
[2025-02-01] MEDS: ACETAMINOPHEN 325 MG TABLET 650 MG GT (21:30)
[2025-02-02] VITALS (10 sets, daily range): BP systolic 93–124; BP diastolic 66–73; PULSE 50–90; RESP 19–22; TEMP 36.1–36.3; O2SAT 95–99
[2025-02-02] MEDS: MIDODRINE 10 MG TABLET GT (05:41)
[2025-02-02] MEDS: GENTAMICIN 0.3% OPHTH DROPS 75 DROP/5 ML BTL LEFT EYE ×4 (05:42→20:35)
[2025-02-02] MEDS: DEXLANSOPRAZOLE 30 MG GT (08:10)
[2025-02-02] MEDS: DEX/HYPRO/GLY ARTIFICAL TEARS 225 DROP/15 ML BTL BOTH EYES ×2 (08:10→20:34)
[2025-02-02] MEDS: FISH OIL 1200 MG GT (08:11)
[2025-02-02] MEDS: LOSARTAN 25 MG TABLET GT (08:11)
[2025-02-02] MEDS: MULTIVITAMIN W MINERALS 1 EACH TABLET GT (08:11)
[2025-02-02] MEDS: SENNOSIDES 8.6 MG TABLET GT ×2 (08:12→20:35)
[2025-02-02] MEDS: PROPRANOLOL 20 MG TABLET GT ×2 (13:11→22:37)
[2025-02-03] VITALS (12 sets, daily range): BP systolic 102–133; BP diastolic 60–83; PULSE 65–98; RESP 20–22; TEMP 36.3–38.4; O2SAT 96–100
[2025-02-03] MEDS: GENTAMICIN 0.3% OPHTH DROPS 75 DROP/5 ML BTL LEFT EYE ×4 (05:49→21:47)
[2025-02-03] MEDS: PROPRANOLOL 20 MG TABLET GT ×3 (05:49→21:46)
[2025-02-03] MEDS: DEX/HYPRO/GLY ARTIFICAL TEARS 225 DROP/15 ML BTL BOTH EYES ×2 (08:43→21:47)
[2025-02-03] MEDS: LOSARTAN 25 MG TABLET GT (08:44)
[2025-02-03] MEDS: DEXLANSOPRAZOLE 30 MG GT (08:44)
[2025-02-03] MEDS: SENNOSIDES 8.6 MG TABLET GT ×2 (08:44→21:47)
[2025-02-03] MEDS: FISH OIL 1200 MG GT (08:44)
[2025-02-03] MEDS: MULTIVITAMIN W MINERALS 1 EACH TABLET GT (08:44)
[2025-02-03] MEDS: ACETAMINOPHEN 325 MG TABLET 650 MG GT ×2 (13:04→19:01)
[2025-02-03] MEDS: MIDODRINE 10 MG TABLET GT (13:04)
--- NOTE | 2025-02-03 16:15 | PC.NURSE ---
1330- Rectal temp checked by [employer] and was 102.5. Cooling measures started. 1430- Rectal temp 101.4. Unable to give Tylenol at this time due to Tylenol being given at 1304 for pain. Vital signs: BP 94/61, P86, R20, 99%. Cooling measures continued. Resident also displaying hiccup like breathing occasionally. RN notified and aware. 1540- Rectal temp 100.7. Resident resting with eyes open, no s/s of distress noted. Will continue with current plan of care.
[2025-02-03 19:00] LABS: Collection Type, Urine Catheter; RBC,Urine 0 /hpf (0-3); Squamous Epithelial Cell,Urine 0 /hpf (0-5)
--- NOTE | 2025-02-03 19:04 | PC.NURSE ---
1815-Fever protocol initiated. Resident continues with temp of 101.1. Tylenol 650mg administered via g-tube. Continue with cooling measures. No s/s of distress noted. Endorsed to on coming NOC shift RN.
[2025-02-03 19:30] LABS: Basophils # (Auto) 0.0 Thou/mm3 (0.0-0.2); Basophils % (Auto) 0 % (0-2.5); Eosinophils # (Auto) 0.0 Thou/mm3 (0.0-0.5); Eosinophils % (Auto) 0 % (0-10); Hematocrit 40.4 % (41.0-53.0); Hemoglobin 14.2 g/dL (13.5-16.0); Immature Granulocytes Auto 0.05 Thou/mm3 (0.00-0.00); Lymphocytes # (Auto) 1.1 Thou/mm3 (1.0-4.8); Lymphocytes % (Auto) 8 % (10-50); Mean Corpuscular HGB Conc 35.1 g/dl (31.0-37.0); Mean Corpuscular Hemoglobin 32.4 pg (25.0-35.0); Mean Corpuscular Volume 92 fL (80-100); Monocytes # (Auto) 0.8 Thou/mm3 (0.0-0.8); Monocytes % (Auto) 6 % (0-12); Neutrophils # (Auto) 11.6 Thou/mm3 (1.8-7.7); Neutrophils % (Auto) 85 % (37-80); Nucleated Red Blood Cell # 0.00 Thou/mm3 (0.00-0.00); Nucleated Red Blood Cell % 0 /100 WBC (0); Platelet Count 205 Thou/mm3 (140-440); RDW Standard Deviation 44.3 fL (35.1-43.9); Red Blood Count 4.38 Miln/mm3 (4.50-5.90); White Blood Count 13.6 Thou/mm3 (3.8-10.6)
[2025-02-03 19:34] LABS: Influenza A Ag Negative; Influenza B Ag Negative
[2025-02-03 19:34] LABS: COVID-19 Antigen (In-House) Negative (Negative)
[2025-02-03 19:43] LABS: Bacteria,Urine Rare; Bilirubin,Urine Negative (Negative); Blood,Urine Negative (Negative); Clarity,Urine Turbid (Clear/Hazy); Color,Urine Yellow (Lt Yel-Yel); Glucose, Urine Negative (Negative); Ketones,Urine Negative (Negative); Leukocyte Esterase,Urine Positive (Negative); Nitrite,Urine Negative (Negative); PH,Urine 8.0 (5.0-7.0); Protein,Urine Trace (Neg - Trace); Specific Gravity,Urine 1.017 (1.001-1.035); Urobilinogen,Urine 2.0 mg/dL (0.0-1.0); WBC,Urine 13 /hpf (0-5)
[2025-02-03 19:44] LABS: Culture Indicated,Urine Yes
[2025-02-03 19:57] LABS: Procalcitonin 0.17 ng/ml (0.0-0.49)
[2025-02-03] MEDS: SULFAMETHOXAZOLE/TRIMETHOPRIM 1 EACH TABLET GT (21:47)
[2025-02-03] MEDS: MAGNESIUM HYDROXIDE 30 ML ORAL SUSP ML GT (21:48)
[2025-02-04] VITALS (14 sets, daily range): BP systolic 86–154; BP diastolic 57–83; PULSE 50–93; RESP 14–28; TEMP 36.2–37.8; O2SAT 93–100
[2025-02-04] MEDS: ACETAMINOPHEN 325 MG TABLET 650 MG GT ×2 (00:50→21:46)
--- NOTE | 2025-02-04 02:12 | PC.NURSE ---
Charge nurse notified of lab results, new orders for Levaquin 500mg Gtube daily x days and Bactrium DS GTube BID x 7 days, first dose of Bactrium pulled from cubix and administered, no AR or side effects noted at this time, water given via Gtube, cooling measures performed, tyl. 650mg given at 0050 for fever of 100.1F rectally, pending results, resident on cont. pulse ox. monitoring, resident in room call light within reach, HOB elevated, no s/s of distress at this time.
[2025-02-04] MEDS: IBUPROFEN 100 MG/5 ML ORAL.SUSP 400 MG GT (02:40)
[2025-02-04] MEDS: PROPRANOLOL 20 MG TABLET GT (05:23)
[2025-02-04] MEDS: GENTAMICIN 0.3% OPHTH DROPS 75 DROP/5 ML BTL LEFT EYE ×4 (05:24→21:45)
[2025-02-04] MEDS: DEX/HYPRO/GLY ARTIFICAL TEARS 225 DROP/15 ML BTL BOTH EYES ×2 (09:11→21:44)
[2025-02-04] MEDS: SULFAMETHOXAZOLE/TRIMETHOPRIM 1 EACH TABLET GT ×2 (09:13→21:45)
[2025-02-04] MEDS: MULTIVITAMIN W MINERALS 1 EACH TABLET GT (09:13)
[2025-02-04] MEDS: SENNOSIDES 8.6 MG TABLET GT ×2 (09:13→21:45)
[2025-02-04] MEDS: DEXLANSOPRAZOLE 30 MG GT (09:14)
[2025-02-04] MEDS: FISH OIL 1200 MG GT (09:14)
[2025-02-04] MEDS: MIDODRINE 10 MG TABLET GT ×2 (14:00→21:44)
--- NOTE | 2025-02-04 17:47 | PC.NURSE ---
Resident on Bactrim DS BID, Levoquin 500mg daily via gtube for elevated temp, no adverse reactions noted, afebrile, on continuous pulse oximetry, bed in low position, call light in reach, continue to monitor
--- NOTE | 2025-02-04 19:03 | PC.NURSE ---
Resident continues on Gentamicin 0.3% eye drops for infection to left eye, redness noted, no adverse reactions noted, continue to monitor
--- NOTE | 2025-02-04 23:20 | ESPR_ITS ---
Progress Note - SubAcute DIAGNOSIS (1) Traumatic brain injury: Status: Chronic (2) Anoxic brain damage, not elsewhere classified: Status: Chronic (3) Tracheostomy status: Status: Chronic (4) Gastrostomy status: Status: Chronic (5) Chronic respiratory failure: Status: Chronic (6) UTI (urinary tract infection): Status: Acute (7) Right middle lobe pneumonia: Status: Acute SUBJECTIVE Fever:: none GI:: none Shortness of Breath:: none GI:: no complaints Pain:: none OBJECTIVE Most recent vital signs: Last Vital Signs Temp 97.1 F 02/04/25 18:00 Pulse 93 02/04/25 21:44 Resp 20 02/04/25 18:55 BP 98/65 02/04/25 21:44 Pulse Ox 100 02/04/25 18:55 O2 Del Method Blow-by 02/04/25 05:36 O2 Flow Rate 10 02/04/25 18:55 FiO2 35 02/04/25 18:55 Neurological:: awake Speech:: none Answers questions:: sometimes (Sometimes opens eyes to command.) Respiratory:: lungs clear Cardiovascular: RRR Abdomen: soft and nontender Extremities:: deformities Decubitus:: none Tracheostomy:: to blow by Feeding per:: G tube Complaints:: none ASSESSMENT & PLAN Assessment: Stable status. No improvement in cognitive function. Pt was transferred to Acute care on 12-28-24 for fever and w/u revealed Enterococcus UTI and Pneumonia with Proteus and providencia and responded to antibiotics and was received back in [facility] on 01-01-25 on Levaquin and Augmentin for completion of course for a week. Diagnosis and treatment reviewed. Prognosis remains poor. No evident pain issues.Comfort objective being achieved.VSS. Family representatives kept updated Plan: Current treatment continued as ongoing
[2025-02-05] VITALS (10 sets, daily range): BP systolic 95–108; BP diastolic 58–70; PULSE 60–79; RESP 18–20; TEMP 36.4–36.7; O2SAT 97–99
[2025-02-05] MEDS: MIDODRINE 10 MG TABLET GT ×3 (05:31→21:05)
[2025-02-05] MEDS: PROPRANOLOL 20 MG TABLET GT ×3 (05:31→21:06)
[2025-02-05] MEDS: GENTAMICIN 0.3% OPHTH DROPS 75 DROP/5 ML BTL LEFT EYE ×4 (05:46→21:07)
[2025-02-05] MEDS: DEX/HYPRO/GLY ARTIFICAL TEARS 225 DROP/15 ML BTL BOTH EYES ×2 (09:33→21:06)
[2025-02-05] MEDS: DEXLANSOPRAZOLE 30 MG GT (09:34)
[2025-02-05] MEDS: FISH OIL 1200 MG GT (09:34)
[2025-02-05] MEDS: MULTIVITAMIN W MINERALS 1 EACH TABLET GT (09:35)
[2025-02-05] MEDS: SENNOSIDES 8.6 MG TABLET GT ×2 (09:35→21:07)
[2025-02-05] MEDS: SULFAMETHOXAZOLE/TRIMETHOPRIM 1 EACH TABLET GT ×2 (09:35→21:08)
[2025-02-05] MEDS: ACETAMINOPHEN 325 MG TABLET 650 MG GT (13:45)
[2025-02-06] VITALS (10 sets, daily range): BP systolic 96–109; BP diastolic 52–67; PULSE 47–82; RESP 16–22; TEMP 36.2–36.9; O2SAT 94–100
[2025-02-06] MEDS: MIDODRINE 10 MG TABLET GT ×3 (05:19→21:18)
[2025-02-06] MEDS: PROPRANOLOL 20 MG TABLET GT ×2 (05:19→21:19)
[2025-02-06] MEDS: MAG HYDROX/ALUMINUM HYD/SIMETH 355 ML BTL 30 ML PO (05:31)
[2025-02-06] MEDS: DEX/HYPRO/GLY ARTIFICAL TEARS 225 DROP/15 ML BTL BOTH EYES ×2 (09:19→20:29)
[2025-02-06] MEDS: DEXLANSOPRAZOLE 30 MG GT (09:19)
[2025-02-06] MEDS: SULFAMETHOXAZOLE/TRIMETHOPRIM 1 EACH TABLET GT ×2 (09:19→20:29)
[2025-02-06] MEDS: FISH OIL 1200 MG GT (09:20)
[2025-02-06] MEDS: MULTIVITAMIN W MINERALS 1 EACH TABLET GT (09:21)
[2025-02-06] MEDS: SENNOSIDES 8.6 MG TABLET GT ×2 (09:21→20:29)
[2025-02-06] MEDS: ACETAMINOPHEN 325 MG TABLET 650 MG GT ×2 (09:40→17:05)
[2025-02-06] MEDS: ONDANSETRON HCL 4 MG TABLET GT (17:05)
[2025-02-06] MEDS: IPRATROPIUM BROMIDE 200 PUFF/INH INHALER INH (17:35)
--- NOTE | 2025-02-06 18:44 | PC.NURSE ---
Continues to receive ABX Levaquin 500 mg & SMZ/TMP 800 mg via g-tube. No adverse reactions noticed. Vital signs within parameters. No s/s of any discomfort or distress
[2025-02-06] MEDS: MAGNESIUM HYDROXIDE 30 ML ORAL SUSP ML GT (21:19)
[2025-02-07] VITALS (11 sets, daily range): BP systolic 92–118; BP diastolic 52–73; PULSE 47–82; RESP 18–20; TEMP 36.2–36.4; O2SAT 99–100
[2025-02-07] MEDS: ONDANSETRON HCL 4 MG TABLET GT ×2 (00:15→20:00)
[2025-02-07] MEDS: PROPRANOLOL 20 MG TABLET GT ×3 (05:12→21:38)
[2025-02-07] MEDS: MIDODRINE 10 MG TABLET GT ×2 (05:12→21:38)
[2025-02-07] MEDS: DEXLANSOPRAZOLE 30 MG GT (08:13)
[2025-02-07] MEDS: FISH OIL 1200 MG GT (08:13)
[2025-02-07] MEDS: DEX/HYPRO/GLY ARTIFICAL TEARS 225 DROP/15 ML BTL BOTH EYES ×2 (08:13→19:59)
[2025-02-07] MEDS: MULTIVITAMIN W MINERALS 1 EACH TABLET GT (08:14)
[2025-02-07] MEDS: SENNOSIDES 8.6 MG TABLET GT ×2 (08:14→20:00)
[2025-02-07] MEDS: SULFAMETHOXAZOLE/TRIMETHOPRIM 1 EACH TABLET GT ×2 (08:14→20:01)
[2025-02-07] MEDS: BISACODYL 10 MG SUPP.RECT PR (10:00)
[2025-02-07] MEDS: ACETAMINOPHEN 325 MG TABLET 650 MG GT (20:00)
[2025-02-07] MEDS: SODIUM PHOSPHATE,MONO-DIBASIC 133 ML ENEMA PR (23:00)
[2025-02-08] VITALS (8 sets, daily range): BP systolic 95–123; BP diastolic 54–73; PULSE 56–68; RESP 20–22; TEMP 36.5–36.7; O2SAT 98–100
[2025-02-08] MEDS: PROPRANOLOL 20 MG TABLET GT ×2 (06:13→22:03)
[2025-02-08] MEDS: MIDODRINE 10 MG TABLET GT ×2 (06:13→14:09)
[2025-02-08] MEDS: DEXLANSOPRAZOLE 30 MG GT (08:35)
[2025-02-08] MEDS: DEX/HYPRO/GLY ARTIFICAL TEARS 225 DROP/15 ML BTL BOTH EYES ×2 (08:35→22:00)
[2025-02-08] MEDS: FISH OIL 1200 MG GT (08:36)
[2025-02-08] MEDS: MULTIVITAMIN W MINERALS 1 EACH TABLET GT (08:37)
[2025-02-08] MEDS: LOSARTAN 25 MG TABLET GT (08:37)
[2025-02-08] MEDS: SENNOSIDES 8.6 MG TABLET GT ×2 (08:37→22:00)
[2025-02-08] MEDS: SULFAMETHOXAZOLE/TRIMETHOPRIM 1 EACH TABLET GT ×2 (08:38→22:00)
[2025-02-08] MEDS: ONDANSETRON HCL 4 MG TABLET GT (08:39)
[2025-02-08] MEDS: ACETAMINOPHEN 325 MG TABLET 650 MG GT ×2 (08:39→22:04)
[2025-02-08] MEDS: MAG HYDROX/ALUMINUM HYD/SIMETH 355 ML BTL 30 ML PO (10:03)
--- NOTE | 2025-02-08 14:59 | PC.NURSE ---
Resident continues on antibiotics Bactrim DS and Levaquin 500mg with no adverse reactions noted. No s/s of distress noted. Vital signs stable. Will continue to monitor.
--- NOTE | 2025-02-08 22:13 | PD.SAPROG ---
Progress Note - SubAcute DIAGNOSIS (1) Traumatic brain injury: Status: Chronic (2) Anoxic brain damage, not elsewhere classified: Status: Chronic (3) Tracheostomy status: Status: Chronic (4) Gastrostomy status: Status: Chronic (5) Chronic respiratory failure: Status: Chronic (6) UTI (urinary tract infection): Status: Acute (7) Right middle lobe pneumonia: Status: Acute SUBJECTIVE Fever:: none GI:: none Shortness of Breath:: none GI:: no complaints Pain:: none OBJECTIVE Most recent vital signs: Last Vital Signs Temp 98.0 F 02/08/25 18:00 Pulse 64 02/08/25 22:03 Resp 22 H 02/08/25 18:00 BP 123/71 02/08/25 22:03 Pulse Ox 100 02/08/25 18:00 O2 Del Method Blow-by 02/07/25 17:14 O2 Flow Rate 10 02/08/25 08:09 FiO2 35 02/08/25 08:09 Neurological:: awake Speech:: none Answers questions:: sometimes (Sometimes opens eyes to command.) Respiratory:: lungs clear Cardiovascular: RRR Abdomen: soft and nontender Extremities:: deformities Decubitus:: none Tracheostomy:: to blow by Feeding per:: G tube Complaints:: none ASSESSMENT & PLAN Assessment: Stable status. No improvement in cognitive function. Pt was transferred to Acute care on 12-28-24 for fever and w/u revealed Enterococcus UTI and Pneumonia with Proteus and providencia and responded to antibiotics and was received back in [facility] on 01-01-25 on Levaquin and Augmentin for completion of course for a week. Diagnosis and treatment reviewed. Prognosis remains poor. No evident pain issues.Comfort objective being achieved.VSS. Family representatives kept updated Plan: Current treatment continued as ongoing
[2025-02-08] MEDS: BISACODYL 10 MG SUPP.RECT PR (23:55)
[2025-02-09] VITALS (11 sets, daily range): BP systolic 89–141; BP diastolic 58–89; PULSE 51–77; RESP 17–23; TEMP 36.1–36.3; O2SAT 95–100
[2025-02-09] MEDS: MIDODRINE 10 MG TABLET GT ×2 (05:46→14:27)
[2025-02-09] MEDS: DEX/HYPRO/GLY ARTIFICAL TEARS 225 DROP/15 ML BTL BOTH EYES ×2 (09:07→20:22)
[2025-02-09] MEDS: DEXLANSOPRAZOLE 30 MG GT (09:07)
[2025-02-09] MEDS: FISH OIL 1200 MG GT (09:07)
[2025-02-09] MEDS: SENNOSIDES 8.6 MG TABLET GT ×2 (09:08→20:22)
[2025-02-09] MEDS: MULTIVITAMIN W MINERALS 1 EACH TABLET GT (09:08)
[2025-02-09] MEDS: LOSARTAN 25 MG TABLET GT (09:08)
[2025-02-09] MEDS: SULFAMETHOXAZOLE/TRIMETHOPRIM 1 EACH TABLET GT ×2 (09:09→20:23)
[2025-02-09] MEDS: MAG HYDROX/ALUMINUM HYD/SIMETH 355 ML BTL 30 ML PO (09:16)
[2025-02-09] MEDS: ACETAMINOPHEN 325 MG TABLET 650 MG GT ×2 (09:16→20:15)
--- NOTE | 2025-02-09 10:12 | PC.SS ---
This SSD received call from foster she stated RP Arlene Hinds called her to share her concerns and has asked she attend IDT meeting with her. This SSD agreed to telephone conference foster when meeting starts. FARHAD made aware of request.
--- NOTE | 2025-02-09 12:13 | PC.IP ---
At 1105 spoke with Arlene Hinds to help address her concerns regarding her father's treatment for conjunctivitis and UTI. We reviewed training caregivers receive for hand hygiene and wearing of PPE for care at the bedside. I explained to Arlene that if she had concerns at any time she may call me at my direct line and we can discuss and address any issues that I may able to assist with. She thanked me and call was ended.
--- NOTE | 2025-02-09 18:42 | PC.NURSE ---
Resident continues to receive ABX via g-tube. Levofloxacin & Bactrim. No adverse reactions. Vital signs within parameters
[2025-02-09] MEDS: MAGNESIUM HYDROXIDE 30 ML ORAL SUSP ML GT (20:25)
[2025-02-09] MEDS: PROPRANOLOL 20 MG TABLET GT (21:37)
[2025-02-10] VITALS (10 sets, daily range): BP systolic 91–112; BP diastolic 57–69; PULSE 66–101; RESP 18–21; TEMP 36.1–36.4; O2SAT 96–100
[2025-02-10] MEDS: MIDODRINE 10 MG TABLET GT ×2 (06:06→21:09)
[2025-02-10] MEDS: PROPRANOLOL 20 MG TABLET GT (06:07)
--- NOTE | 2025-02-10 08:48 | PC.NURSE ---
Wanted to touch base with Ms. Arlene Hinds (daughter) regarding Mr. Hinds's (Father) health status and NOC 's reported that Ms. Hinds called to facetime with her father. NOC's stated they tried facetiming her x3 without response. Calling a number with last four of ...[phone], she stated that she was Ms. Hinds's mother and to reach out to the number ending in ...[phone], called but no one answered the phone.
[2025-02-10] MEDS: DEXLANSOPRAZOLE 30 MG GT (10:07)
[2025-02-10] MEDS: FISH OIL 1200 MG GT (10:07)
[2025-02-10] MEDS: DEX/HYPRO/GLY ARTIFICAL TEARS 225 DROP/15 ML BTL BOTH EYES ×2 (10:07→20:20)
[2025-02-10] MEDS: LOSARTAN 25 MG TABLET GT (10:11)
[2025-02-10] MEDS: SENNOSIDES 8.6 MG TABLET GT ×2 (10:12→20:21)
[2025-02-10] MEDS: MULTIVITAMIN W MINERALS 1 EACH TABLET GT (10:12)
[2025-02-10] MEDS: SULFAMETHOXAZOLE/TRIMETHOPRIM 1 EACH TABLET GT (10:13)
--- NOTE | 2025-02-10 15:05 | PC.SS ---
IDT Note: RP Arlene Hinds attended meeting via telephone conference, she requested foster be present with her. This SSD conference called foster and was able to attend the meeting. Arlene went over her concerns and spoke with Lorrie. Arlene asked about hospice and possibly placing resident at another facility closer to home. She briefly mentioned taking her father home on hospice at which time she was informed this SSD would assist her with DC planning. Arlene said she was asking questions to be able to share with family and would update team with any changes. Resident will remain in current care and will continue to have all subacute care needs met by staff.
--- NOTE | 2025-02-10 22:43 | PD.SAPROG ---
Progress Note - SubAcute DIAGNOSIS (1) Traumatic brain injury: Status: Chronic (2) Anoxic brain damage, not elsewhere classified: Status: Chronic (3) Tracheostomy status: Status: Chronic (4) Gastrostomy status: Status: Chronic (5) Chronic respiratory failure: Status: Chronic (6) UTI (urinary tract infection): Status: Acute (7) Right middle lobe pneumonia: Status: Acute SUBJECTIVE Fever:: none GI:: none Shortness of Breath:: none GI:: no complaints Pain:: none OBJECTIVE Most recent vital signs: Last Vital Signs Temp 97.2 F 02/10/25 17:17 Pulse 90 02/10/25 20:21 Resp 18 02/10/25 19:17 BP 106/67 02/10/25 20:21 Pulse Ox 98 02/10/25 19:17 O2 Del Method Blow-by 02/10/25 06:00 O2 Flow Rate 10 02/10/25 19:17 FiO2 35 02/10/25 19:17 Neurological:: awake Speech:: none Answers questions:: sometimes (Sometimes opens eyes to command.) Respiratory:: lungs clear Cardiovascular: RRR Abdomen: soft and nontender Extremities:: deformities Decubitus:: none Tracheostomy:: to blow by Feeding per:: G tube Complaints:: none ASSESSMENT & PLAN Assessment: Stable status. No improvement in cognitive function. Pt was transferred to Acute care on 12-28-24 for fever and w/u revealed Enterococcus UTI and Pneumonia with Proteus and providencia and responded to antibiotics and was received back in [facility] on 01-01-25 on Levaquin and Augmentin for completion of course for a week. Diagnosis and treatment reviewed. Prognosis remains poor. No evident pain issues.Comfort objective being achieved.VSS. Family representatives kept updated. Some observation by family member about hiccups. will monitor and if they return then a trial with medicatios appropriately will be offered Plan: Current treatment continued as ongoing
[2025-02-11] VITALS (11 sets, daily range): BP systolic 103–124; BP diastolic 60–74; PULSE 53–84; RESP 18–21; TEMP 36.1–36.5; O2SAT 98–100
[2025-02-11] MEDS: PROPRANOLOL 20 MG TABLET GT ×2 (05:33→21:51)
[2025-02-11] MEDS: DEX/HYPRO/GLY ARTIFICAL TEARS 225 DROP/15 ML BTL BOTH EYES ×2 (09:39→20:17)
[2025-02-11] MEDS: FISH OIL 1200 MG GT (09:41)
[2025-02-11] MEDS: MULTIVITAMIN W MINERALS 1 EACH TABLET GT (09:42)
[2025-02-11] MEDS: DEXLANSOPRAZOLE 30 MG GT (09:42)
[2025-02-11] MEDS: SENNOSIDES 8.6 MG TABLET GT ×2 (09:43→20:21)
--- NOTE | 2025-02-11 14:46 | PC.SS ---
Resident is laying in bed with head of the bed elevated with call light placed with no signs of distress. Resident is on blow by with trach in place and GT for medication and nutrition. Resident is non verbal unable to make needs known his daughter is his decision maker. Resident has no changes in care or condition and will remain in current care and will have all subacute care needs met by staff. This SSD will continue make daily contact and will monitor for changes in mood and behavior.
[2025-02-11] MEDS: MAGNESIUM HYDROXIDE 30 ML ORAL SUSP ML GT (20:29)
[2025-02-11] MEDS: MIDODRINE 10 MG TABLET GT (21:51)
[2025-02-12] VITALS (9 sets, daily range): BP systolic 97–151; BP diastolic 58–87; PULSE 54–79; RESP 17–23; TEMP 36.2–36.9; O2SAT 96–99
[2025-02-12] MEDS: MIDODRINE 10 MG TABLET GT ×3 (06:33→21:19)
[2025-02-12] MEDS: SENNOSIDES 8.6 MG TABLET GT ×2 (09:28→21:19)
[2025-02-12] MEDS: MULTIVITAMIN W MINERALS 1 EACH TABLET GT (09:28)
[2025-02-12] MEDS: DEXLANSOPRAZOLE 30 MG GT (09:28)
[2025-02-12] MEDS: DEX/HYPRO/GLY ARTIFICAL TEARS 225 DROP/15 ML BTL BOTH EYES ×2 (09:28→21:19)
[2025-02-12] MEDS: FISH OIL 1200 MG GT (09:28)
[2025-02-12] MEDS: PROPRANOLOL 20 MG TABLET GT (21:19)
[2025-02-13] VITALS (7 sets, daily range): BP systolic 107–112; BP diastolic 64–78; PULSE 54–74; RESP 18–20; TEMP 36.3–36.8; O2SAT 92–98
[2025-02-13] MEDS: FISH OIL 1200 MG GT (09:04)
[2025-02-13] MEDS: DEX/HYPRO/GLY ARTIFICAL TEARS 225 DROP/15 ML BTL BOTH EYES ×2 (09:04→21:23)
[2025-02-13] MEDS: MULTIVITAMIN W MINERALS 1 EACH TABLET GT (09:05)
[2025-02-13] MEDS: DEXLANSOPRAZOLE 30 MG GT (09:05)
[2025-02-13] MEDS: SENNOSIDES 8.6 MG TABLET GT ×2 (09:05→21:23)
[2025-02-13] MEDS: MIDODRINE 10 MG TABLET GT ×2 (14:17→21:24)
[2025-02-13] MEDS: PROPRANOLOL 20 MG TABLET GT (21:24)
[2025-02-14] VITALS (11 sets, daily range): BP systolic 97–131; BP diastolic 67–78; PULSE 54–74; RESP 17–20; TEMP 36.4–36.9; O2SAT 95–99
[2025-02-14] MEDS: PROPRANOLOL 20 MG TABLET GT ×2 (05:52→13:51)
[2025-02-14] MEDS: FISH OIL 1200 MG GT (08:51)
[2025-02-14] MEDS: DEXLANSOPRAZOLE 30 MG GT (08:51)
[2025-02-14] MEDS: DEX/HYPRO/GLY ARTIFICAL TEARS 225 DROP/15 ML BTL BOTH EYES ×2 (08:51→21:29)
[2025-02-14] MEDS: SENNOSIDES 8.6 MG TABLET GT ×2 (08:52→21:29)
[2025-02-14] MEDS: MULTIVITAMIN W MINERALS 1 EACH TABLET GT (08:52)
--- NOTE | 2025-02-14 13:45 | ESPR_ITS ---
Progress Note - SubAcute DIAGNOSIS (1) Traumatic brain injury: Status: Chronic (2) Anoxic brain damage, not elsewhere classified: Status: Chronic (3) Tracheostomy status: Status: Chronic (4) Gastrostomy status: Status: Chronic (5) Chronic respiratory failure: Status: Chronic (6) UTI (urinary tract infection): Status: Acute (7) Right middle lobe pneumonia: Status: Acute SUBJECTIVE Fever:: none GI:: none Shortness of Breath:: none GI:: no complaints Pain:: none OBJECTIVE Most recent vital signs: Last Vital Signs Temp 96.2 F L 02/18/25 18:00 Pulse 78 02/18/25 22:03 Resp 18 02/18/25 18:00 BP 115/79 02/18/25 22:03 Pulse Ox 98 02/18/25 18:00 O2 Del Method Blow-by 02/18/25 05:14 O2 Flow Rate 10 02/18/25 06:50 FiO2 35 02/18/25 06:50 Neurological:: awake Speech:: none Answers questions:: sometimes (Sometimes opens eyes to command.) Respiratory:: lungs clear Cardiovascular: RRR Abdomen: soft and nontender Extremities:: deformities Decubitus:: none Tracheostomy:: to blow by Feeding per:: G tube Complaints:: none ASSESSMENT & PLAN Assessment: Stable status. No improvement in cognitive function. Pt was transferred to Acute care on 12-28-24 for fever and w/u revealed Enterococcus UTI and Pneumonia with Proteus and providencia and responded to antibiotics and was received back in [facility] on 01-01-25 on Levaquin and Augmentin for completion of course for a week. Diagnosis and treatment reviewed. Prognosis remains poor. No evident pain issues.Comfort objective being achieved.VSS. Family representatives kept updated. Some observation by family member about hiccups. will monitor and if they return then a trial with medicatios appropriately will be offered Plan: Current treatment continued as ongoing
[2025-02-14] MEDS: MIDODRINE 10 MG TABLET GT (21:29)
[2025-02-15] VITALS (9 sets, daily range): BP systolic 95–115; BP diastolic 60–72; PULSE 54–68; RESP 16–20; TEMP 36.2–36.6; O2SAT 98–100
[2025-02-15] MEDS: MIDODRINE 10 MG TABLET GT ×2 (05:43→14:22)
[2025-02-15] MEDS: PROPRANOLOL 20 MG TABLET GT ×2 (05:47→21:02)
[2025-02-15] MEDS: DEXLANSOPRAZOLE 30 MG GT (08:44)
[2025-02-15] MEDS: DEX/HYPRO/GLY ARTIFICAL TEARS 225 DROP/15 ML BTL BOTH EYES ×2 (08:44→21:01)
[2025-02-15] MEDS: FISH OIL 1200 MG GT (08:48)
[2025-02-15] MEDS: SENNOSIDES 8.6 MG TABLET GT ×2 (08:49→21:01)
[2025-02-15] MEDS: MULTIVITAMIN W MINERALS 1 EACH TABLET GT (08:49)
[2025-02-15] MEDS: MAGNESIUM HYDROXIDE 30 ML ORAL SUSP ML GT (11:20)
[2025-02-16] VITALS (10 sets, daily range): BP systolic 97–118; BP diastolic 60–75; PULSE 59–74; RESP 17–22; TEMP 36.2–36.5; O2SAT 99–100
[2025-02-16] MEDS: MIDODRINE 10 MG TABLET GT ×3 (05:35→21:05)
[2025-02-16] MEDS: PROPRANOLOL 20 MG TABLET GT ×2 (05:35→14:20)
[2025-02-16] MEDS: DEXLANSOPRAZOLE 30 MG GT (08:48)
[2025-02-16] MEDS: FISH OIL 1200 MG GT (08:48)
[2025-02-16] MEDS: DEX/HYPRO/GLY ARTIFICAL TEARS 225 DROP/15 ML BTL BOTH EYES ×2 (08:48→21:04)
[2025-02-16] MEDS: MULTIVITAMIN W MINERALS 1 EACH TABLET GT (08:49)
[2025-02-16] MEDS: SENNOSIDES 8.6 MG TABLET GT ×2 (08:49→21:04)
[2025-02-17] VITALS (9 sets, daily range): BP systolic 98–127; BP diastolic 64–78; PULSE 44–80; RESP 18–20; TEMP 36.4–36.8; O2SAT 95–100
[2025-02-17] MEDS: MIDODRINE 10 MG TABLET GT ×2 (06:46→14:00)
[2025-02-17] MEDS: PROPRANOLOL 20 MG TABLET GT ×3 (06:47→21:14)
[2025-02-17] MEDS: DEX/HYPRO/GLY ARTIFICAL TEARS 225 DROP/15 ML BTL BOTH EYES ×2 (09:32→20:15)
[2025-02-17] MEDS: DEXLANSOPRAZOLE 30 MG GT (09:32)
[2025-02-17] MEDS: FISH OIL 1200 MG GT (09:33)
[2025-02-17] MEDS: MULTIVITAMIN W MINERALS 1 EACH TABLET GT (09:34)
[2025-02-17] MEDS: SENNOSIDES 8.6 MG TABLET GT ×2 (09:35→20:15)
[2025-02-18] VITALS (10 sets, daily range): BP systolic 96–123; BP diastolic 64–79; PULSE 58–78; RESP 18–22; TEMP 35.7–36.3; O2SAT 98–99; BMI 24.3
[2025-02-18] MEDS: MIDODRINE 10 MG TABLET GT ×2 (05:53→22:03)
[2025-02-18] MEDS: SENNOSIDES 8.6 MG TABLET GT ×2 (08:54→20:19)
[2025-02-18] MEDS: DEXLANSOPRAZOLE 30 MG GT (08:54)
[2025-02-18] MEDS: DEX/HYPRO/GLY ARTIFICAL TEARS 225 DROP/15 ML BTL BOTH EYES ×2 (08:54→20:19)
[2025-02-18] MEDS: FISH OIL 1200 MG GT (08:54)
[2025-02-18] MEDS: LOSARTAN 25 MG TABLET GT (08:54)
[2025-02-18] MEDS: MULTIVITAMIN W MINERALS 1 EACH TABLET GT (08:54)
[2025-02-18] MEDS: PROPRANOLOL 20 MG TABLET GT ×2 (13:48→22:03)
[2025-02-18] MEDS: ACETAMINOPHEN 325 MG TABLET 650 MG GT (20:15)
--- NOTE | 2025-02-18 22:42 | PD.SAPROG ---
Progress Note - SubAcute DIAGNOSIS (1) Traumatic brain injury: Status: Chronic (2) Anoxic brain damage, not elsewhere classified: Status: Chronic (3) Tracheostomy status: Status: Chronic (4) Gastrostomy status: Status: Chronic (5) Chronic respiratory failure: Status: Chronic (6) UTI (urinary tract infection): Status: Acute (7) Right middle lobe pneumonia: Status: Acute SUBJECTIVE Fever:: none GI:: none Shortness of Breath:: none GI:: no complaints Pain:: none OBJECTIVE Most recent vital signs: Last Vital Signs Temp 96.2 F L 02/18/25 18:00 Pulse 78 02/18/25 22:03 Resp 18 02/18/25 18:00 BP 115/79 02/18/25 22:03 Pulse Ox 98 02/18/25 18:00 O2 Del Method Blow-by 02/18/25 05:14 O2 Flow Rate 10 02/18/25 06:50 FiO2 35 02/18/25 06:50 Neurological:: awake Speech:: none Answers questions:: sometimes (Sometimes opens eyes to command.) Respiratory:: lungs clear Cardiovascular: RRR Abdomen: soft and nontender Extremities:: deformities Decubitus:: none Tracheostomy:: to blow by Feeding per:: G tube Complaints:: none ASSESSMENT & PLAN Assessment: Stable status. No improvement in cognitive function. Pt was transferred to Acute care on 12-28-24 for fever and w/u revealed Enterococcus UTI and Pneumonia with Proteus and providencia and responded to antibiotics and was received back in [facility] on 01-01-25 on Levaquin and Augmentin for completion of course for a week. Diagnosis and treatment reviewed. Prognosis remains poor. No evident pain issues.Comfort objective being achieved.VSS. Family representatives kept updated. Some observation by family member about hiccups. will monitor and if they return then a trial with medicatios appropriately will be offered Plan: Current treatment continued as ongoing
[2025-02-19] VITALS (10 sets, daily range): BP systolic 95–127; BP diastolic 58–72; PULSE 54–71; RESP 18–22; TEMP 35.9–36.8; O2SAT 98–99
[2025-02-19] MEDS: MIDODRINE 10 MG TABLET GT ×2 (05:10→21:38)
[2025-02-19] MEDS: DEX/HYPRO/GLY ARTIFICAL TEARS 225 DROP/15 ML BTL BOTH EYES ×2 (08:54→20:13)
[2025-02-19] MEDS: FISH OIL 1200 MG GT (08:55)
[2025-02-19] MEDS: DEXLANSOPRAZOLE 30 MG GT (08:55)
[2025-02-19] MEDS: MULTIVITAMIN W MINERALS 1 EACH TABLET GT (08:55)
[2025-02-19] MEDS: SENNOSIDES 8.6 MG TABLET GT ×2 (08:55→20:13)
[2025-02-19] MEDS: LOSARTAN 25 MG TABLET GT (08:55)
[2025-02-19] MEDS: MAGNESIUM HYDROXIDE 30 ML ORAL SUSP ML GT (08:55)
[2025-02-19] MEDS: PROPRANOLOL 20 MG TABLET GT ×2 (14:13→21:37)
--- NOTE | 2025-02-19 14:34 | PC.SS ---
Room visit: Resident is laying in bed with head of the bed elevated with call light properly placed with no signs of distress. Resident remains on blow by with trach in place and GT for medication and nutrition. Resident is unable to make needs known his decision maker is his daughter. Resident will remain in current care and will continue to have all subacute care needs met by staff.
[2025-02-19] MEDS: ACETAMINOPHEN 325 MG TABLET 650 MG GT (20:00)
[2025-02-20] VITALS (12 sets, daily range): BP systolic 95–112; BP diastolic 63–72; PULSE 20–74; RESP 16–20; TEMP 36.2–36.4; O2SAT 92–100
[2025-02-20] MEDS: PROPRANOLOL 20 MG TABLET GT ×2 (05:55→13:32)
[2025-02-20] MEDS: MIDODRINE 10 MG TABLET GT ×2 (05:55→21:28)
[2025-02-20] MEDS: DEX/HYPRO/GLY ARTIFICAL TEARS 225 DROP/15 ML BTL BOTH EYES ×2 (08:23→20:21)
[2025-02-20] MEDS: FISH OIL 1200 MG GT (08:26)
[2025-02-20] MEDS: DEXLANSOPRAZOLE 30 MG GT (08:26)
[2025-02-20] MEDS: MULTIVITAMIN W MINERALS 1 EACH TABLET GT (08:30)
[2025-02-20] MEDS: SENNOSIDES 8.6 MG TABLET GT ×2 (08:30→20:22)
[2025-02-21] VITALS (9 sets, daily range): BP systolic 100–118; BP diastolic 66–76; PULSE 55–99; RESP 18–20; TEMP 35.9–36.3; O2SAT 96–99
[2025-02-21] MEDS: MIDODRINE 10 MG TABLET GT ×2 (05:48→13:34)
[2025-02-21] MEDS: PROPRANOLOL 20 MG TABLET GT ×2 (05:48→13:34)
[2025-02-21] MEDS: DEX/HYPRO/GLY ARTIFICAL TEARS 225 DROP/15 ML BTL BOTH EYES ×2 (08:13→20:58)
[2025-02-21] MEDS: LOSARTAN 25 MG TABLET GT (08:13)
[2025-02-21] MEDS: FISH OIL 1200 MG GT (08:13)
[2025-02-21] MEDS: DEXLANSOPRAZOLE 30 MG GT (08:13)
[2025-02-21] MEDS: MULTIVITAMIN W MINERALS 1 EACH TABLET GT (08:14)
[2025-02-21] MEDS: SENNOSIDES 8.6 MG TABLET GT ×2 (08:14→20:59)
[2025-02-22] VITALS (10 sets, daily range): BP systolic 106–129; BP diastolic 66–72; PULSE 59–92; RESP 18–20; TEMP 36.1–36.5; O2SAT 96–99
[2025-02-22] MEDS: MIDODRINE 10 MG TABLET GT ×2 (05:21→13:17)
[2025-02-22] MEDS: PROPRANOLOL 20 MG TABLET GT ×3 (05:21→21:37)
[2025-02-22] MEDS: DEX/HYPRO/GLY ARTIFICAL TEARS 225 DROP/15 ML BTL BOTH EYES ×2 (08:09→21:36)
[2025-02-22] MEDS: FISH OIL 1200 MG GT (08:09)
[2025-02-22] MEDS: LOSARTAN 25 MG TABLET GT (08:09)
[2025-02-22] MEDS: DEXLANSOPRAZOLE 30 MG GT (08:09)
[2025-02-22] MEDS: MULTIVITAMIN W MINERALS 1 EACH TABLET GT (08:10)
[2025-02-22] MEDS: SENNOSIDES 8.6 MG TABLET GT ×2 (08:10→21:36)
--- NOTE | 2025-02-22 20:53 | ESPR_ITS ---
Progress Note - SubAcute DIAGNOSIS (1) Traumatic brain injury: Status: Chronic (2) Anoxic brain damage, not elsewhere classified: Status: Chronic (3) Tracheostomy status: Status: Chronic (4) Gastrostomy status: Status: Chronic (5) Chronic respiratory failure: Status: Chronic (6) UTI (urinary tract infection): Status: Acute (7) Right middle lobe pneumonia: Status: Acute SUBJECTIVE Fever:: none GI:: none Shortness of Breath:: none GI:: no complaints Pain:: none OBJECTIVE Most recent vital signs: Last Vital Signs Temp 97.7 F 02/22/25 18:00 Pulse 70 02/22/25 18:00 Resp 18 02/22/25 18:00 BP 106/66 02/22/25 18:00 Pulse Ox 96 02/22/25 18:00 O2 Del Method Blow-by 02/22/25 18:00 O2 Flow Rate 10 02/22/25 15:00 FiO2 35 02/22/25 15:00 Neurological:: awake Speech:: none Answers questions:: sometimes (Sometimes opens eyes to command.) Respiratory:: lungs clear Cardiovascular: RRR Abdomen: soft and nontender Extremities:: deformities Decubitus:: none Tracheostomy:: to blow by Feeding per:: G tube Complaints:: none ASSESSMENT & PLAN Assessment: Stable status. No improvement in cognitive function. Pt was transferred to Acute care on 12-28-24 for fever and w/u revealed Enterococcus UTI and Pneumonia with Proteus and providencia and responded to antibiotics and was received back in [facility] on 01-01-25 on Levaquin and Augmentin for completion of course for a week. Diagnosis and treatment reviewed. Prognosis remains poor. No evident pain issues.Comfort objective being achieved.VSS. Family representatives kept updated. Some observation by family member about hiccups. will monitor and if they return then a trial with medicatios appropriately will be offered Plan: Current treatment continued as ongoing
[2025-02-22] MEDS: ACETAMINOPHEN 325 MG TABLET 650 MG GT (21:37)
[2025-02-23] VITALS (11 sets, daily range): BP systolic 104–143; BP diastolic 64–85; PULSE 54–74; RESP 18–22; TEMP 36.3–36.4; O2SAT 97–99
[2025-02-23] MEDS: MIDODRINE 10 MG TABLET GT (05:37)
[2025-02-23] MEDS: PROPRANOLOL 20 MG TABLET GT ×3 (05:38→22:01)
[2025-02-23] MEDS: DEX/HYPRO/GLY ARTIFICAL TEARS 225 DROP/15 ML BTL BOTH EYES ×2 (09:22→22:00)
[2025-02-23] MEDS: MULTIVITAMIN W MINERALS 1 EACH TABLET GT (09:23)
[2025-02-23] MEDS: SENNOSIDES 8.6 MG TABLET GT ×2 (09:23→22:00)
[2025-02-23] MEDS: DEXLANSOPRAZOLE 30 MG GT (09:23)
[2025-02-23] MEDS: FISH OIL 1200 MG GT (09:23)
[2025-02-23] MEDS: LOSARTAN 25 MG TABLET GT (09:23)
[2025-02-24] VITALS (10 sets, daily range): BP systolic 100–130; BP diastolic 66–77; PULSE 58–72; RESP 17–20; TEMP 36.2–36.4; O2SAT 93–100
[2025-02-24] MEDS: PROPRANOLOL 20 MG TABLET GT ×3 (05:07→21:37)
[2025-02-24] MEDS: FISH OIL 1200 MG GT (08:23)
[2025-02-24] MEDS: DEXLANSOPRAZOLE 30 MG GT (08:23)
[2025-02-24] MEDS: LOSARTAN 25 MG TABLET GT (08:23)
[2025-02-24] MEDS: DEX/HYPRO/GLY ARTIFICAL TEARS 225 DROP/15 ML BTL BOTH EYES ×2 (08:23→20:45)
[2025-02-24] MEDS: MULTIVITAMIN W MINERALS 1 EACH TABLET GT (08:24)
[2025-02-24] MEDS: SENNOSIDES 8.6 MG TABLET GT ×2 (08:25→20:45)
--- NOTE | 2025-02-24 15:16 | PC.SS ---
Room visit: Resident is laying in bed with head of the bed elevated with call light properly placed with no signs of distress. Resident will remain in current care as there are no changes in care or condition, he remains on BB with trach in place and GT for medication and nutrition. Resident will continue to have all subacute care needs met by staff. This SSD will continue to make daily contact with resident and will offer support as she will accept.
[2025-02-24] MEDS: ACETAMINOPHEN 325 MG TABLET 650 MG GT (20:15)
[2025-02-24] MEDS: MIDODRINE 10 MG TABLET GT (21:37)
[2025-02-25] VITALS (11 sets, daily range): BP systolic 97–133; BP diastolic 55–82; PULSE 53–85; RESP 18–20; TEMP 36.3–36.7; O2SAT 95–99
[2025-02-25] MEDS: MIDODRINE 10 MG TABLET GT (06:06)
[2025-02-25] MEDS: PROPRANOLOL 20 MG TABLET GT ×3 (06:06→21:14)
[2025-02-25] MEDS: MULTIVITAMIN W MINERALS 1 EACH TABLET GT (08:58)
[2025-02-25] MEDS: FISH OIL 1200 MG GT (08:58)
[2025-02-25] MEDS: DEXLANSOPRAZOLE 30 MG GT (08:58)
[2025-02-25] MEDS: SENNOSIDES 8.6 MG TABLET GT ×2 (08:58→21:14)
[2025-02-25] MEDS: DEX/HYPRO/GLY ARTIFICAL TEARS 225 DROP/15 ML BTL BOTH EYES ×2 (08:58→21:14)
[2025-02-26] VITALS (10 sets, daily range): BP systolic 101–118; BP diastolic 64–79; PULSE 55–86; RESP 17–20; TEMP 36.1–36.6; O2SAT 96–98
[2025-02-26] MEDS: PROPRANOLOL 20 MG TABLET GT ×3 (05:14→21:10)
[2025-02-26] MEDS: MIDODRINE 10 MG TABLET GT ×2 (05:15→13:55)
[2025-02-26] MEDS: MULTIVITAMIN W MINERALS 1 EACH TABLET GT (08:00)
[2025-02-26] MEDS: SENNOSIDES 8.6 MG TABLET GT ×2 (08:00→21:10)
[2025-02-26] MEDS: FISH OIL 1200 MG GT (08:00)
[2025-02-26] MEDS: DEX/HYPRO/GLY ARTIFICAL TEARS 225 DROP/15 ML BTL BOTH EYES ×2 (08:00→21:10)
[2025-02-26] MEDS: DEXLANSOPRAZOLE 30 MG GT (08:00)
--- NOTE | 2025-02-26 14:30 | PD.SAPROG ---
Progress Note - SubAcute DIAGNOSIS (1) Traumatic brain injury: Status: Chronic (2) Anoxic brain damage, not elsewhere classified: Status: Chronic (3) Tracheostomy status: Status: Chronic (4) Gastrostomy status: Status: Chronic (5) Chronic respiratory failure: Status: Chronic (6) UTI (urinary tract infection): Status: Acute (7) Right middle lobe pneumonia: Status: Acute SUBJECTIVE Fever:: none GI:: none Shortness of Breath:: none GI:: no complaints Pain:: none OBJECTIVE Most recent vital signs: Last Vital Signs Temp 97.5 F 02/28/25 06:00 Pulse 57 L 02/28/25 08:26 Resp 20 02/28/25 07:00 BP 109/61 02/28/25 08:26 Pulse Ox 98 02/28/25 07:00 O2 Del Method Blow-by 02/25/25 17:50 O2 Flow Rate 10 02/28/25 07:00 FiO2 35 02/28/25 07:00 Neurological:: awake Speech:: none Answers questions:: sometimes (Sometimes opens eyes to command.) Respiratory:: lungs clear Cardiovascular: RRR Abdomen: soft and nontender Extremities:: deformities Decubitus:: none Tracheostomy:: to blow by Feeding per:: G tube Complaints:: none ASSESSMENT & PLAN Assessment: Stable status. No improvement in cognitive function. Pt was transferred to Acute care on 12-28-24 for fever and w/u revealed Enterococcus UTI and Pneumonia with Proteus and providencia and responded to antibiotics and was received back in [facility] on 01-01-25 on Levaquin and Augmentin for completion of course for a week. Diagnosis and treatment reviewed. Prognosis remains poor. No evident pain issues.Comfort objective being achieved.VSS. Family representatives kept updated. Some observation by family member about hiccups. will monitor and if they return then a trial with medicatios appropriately will be offered. No more hiccups reported to me by nursing staff. stable Plan: Current treatment continued as ongoing
[2025-02-27] VITALS (10 sets, daily range): BP systolic 102–115; BP diastolic 63–71; PULSE 57–80; RESP 16–20; TEMP 36.3–36.6; O2SAT 95–100
[2025-02-27] MEDS: PROPRANOLOL 20 MG TABLET GT ×3 (05:10→21:01)
[2025-02-27] MEDS: MIDODRINE 10 MG TABLET GT ×3 (05:10→21:01)
[2025-02-27] MEDS: FISH OIL 1200 MG GT (08:56)
[2025-02-27] MEDS: DEXLANSOPRAZOLE 30 MG GT (08:56)
[2025-02-27] MEDS: LOSARTAN 25 MG TABLET GT (08:56)
[2025-02-27] MEDS: SENNOSIDES 8.6 MG TABLET GT ×2 (08:56→20:30)
[2025-02-27] MEDS: DEX/HYPRO/GLY ARTIFICAL TEARS 225 DROP/15 ML BTL BOTH EYES ×2 (08:56→20:29)
[2025-02-27] MEDS: MULTIVITAMIN W MINERALS 1 EACH TABLET GT (08:56)
[2025-02-28] VITALS (9 sets, daily range): BP systolic 96–115; BP diastolic 61–70; PULSE 53–67; RESP 15–20; TEMP 36.4–36.7; O2SAT 98–100
[2025-02-28] MEDS: MIDODRINE 10 MG TABLET GT ×2 (05:35→21:10)
[2025-02-28] MEDS: DEX/HYPRO/GLY ARTIFICAL TEARS 225 DROP/15 ML BTL BOTH EYES ×2 (08:26→21:11)
[2025-02-28] MEDS: FISH OIL 1200 MG GT (08:26)
[2025-02-28] MEDS: MULTIVITAMIN W MINERALS 1 EACH TABLET GT (08:26)
[2025-02-28] MEDS: DEXLANSOPRAZOLE 30 MG GT (08:26)
[2025-02-28] MEDS: SENNOSIDES 8.6 MG TABLET GT ×2 (08:26→21:11)
[2025-02-28] MEDS: PROPRANOLOL 20 MG TABLET GT (21:11)
[2025-02-28] MEDS: MAGNESIUM HYDROXIDE 30 ML ORAL SUSP ML GT (22:00)
[2025-03-01] VITALS (11 sets, daily range): BP systolic 92–122; BP diastolic 55–75; PULSE 52–64; RESP 16–21; TEMP 36.1–36.8; O2SAT 95–99
[2025-03-01] MEDS: PROPRANOLOL 20 MG TABLET GT ×2 (05:21→14:20)
[2025-03-01] MEDS: DEX/HYPRO/GLY ARTIFICAL TEARS 225 DROP/15 ML BTL BOTH EYES ×2 (08:04→21:02)
[2025-03-01] MEDS: FISH OIL 1200 MG GT (08:04)
[2025-03-01] MEDS: DEXLANSOPRAZOLE 30 MG GT (08:04)
[2025-03-01] MEDS: SENNOSIDES 8.6 MG TABLET GT ×2 (08:05→21:02)
[2025-03-01] MEDS: MULTIVITAMIN W MINERALS 1 EACH TABLET GT (08:05)
[2025-03-01] MEDS: LOSARTAN 25 MG TABLET GT (08:05)
[2025-03-01] MEDS: BISACODYL 10 MG SUPP.RECT PR (11:30)
[2025-03-01] MEDS: MIDODRINE 10 MG TABLET GT ×2 (14:20→21:01)
--- NOTE | 2025-03-01 15:09 | PC.SS ---
Resident seen by associate programmer/ Dr. Thomason had routine toe nail trim with no new orders or recommendations. Resident will continue current care.
[2025-03-02] VITALS (9 sets, daily range): BP systolic 96–123; BP diastolic 60–78; PULSE 56–69; RESP 18–21; TEMP 36.1; O2SAT 97–99
[2025-03-02] MEDS: PROPRANOLOL 20 MG TABLET GT ×2 (05:16→21:08)
[2025-03-02] MEDS: DEX/HYPRO/GLY ARTIFICAL TEARS 225 DROP/15 ML BTL BOTH EYES ×2 (08:08→21:09)
[2025-03-02] MEDS: LOSARTAN 25 MG TABLET GT (08:09)
[2025-03-02] MEDS: DEXLANSOPRAZOLE 30 MG GT (08:09)
[2025-03-02] MEDS: FISH OIL 1200 MG GT (08:09)
[2025-03-02] MEDS: MULTIVITAMIN W MINERALS 1 EACH TABLET GT (08:09)
[2025-03-02] MEDS: SENNOSIDES 8.6 MG TABLET GT ×2 (08:09→21:09)
--- NOTE | 2025-03-02 14:00 | ESPR_ITS ---
Progress Note - SubAcute DIAGNOSIS (1) Traumatic brain injury: Status: Chronic (2) Anoxic brain damage, not elsewhere classified: Status: Chronic (3) Tracheostomy status: Status: Chronic (4) Gastrostomy status: Status: Chronic (5) Chronic respiratory failure: Status: Chronic (6) UTI (urinary tract infection): Status: Acute (7) Right middle lobe pneumonia: Status: Acute SUBJECTIVE Fever:: none GI:: none Shortness of Breath:: none GI:: no complaints Pain:: none OBJECTIVE Most recent vital signs: Last Vital Signs Temp 97.4 F 03/07/25 18:00 Pulse 62 03/07/25 21:52 Resp 18 03/07/25 18:00 BP 110/62 03/07/25 21:52 Pulse Ox 100 03/07/25 18:00 O2 Del Method Blow-by 03/07/25 18:00 O2 Flow Rate 8 03/07/25 08:58 FiO2 30 03/07/25 08:58 Neurological:: awake Speech:: none Answers questions:: sometimes (Sometimes opens eyes to command.) Respiratory:: lungs clear Cardiovascular: RRR Abdomen: soft and nontender Extremities:: deformities Decubitus:: none Tracheostomy:: to blow by Feeding per:: G tube Complaints:: none ASSESSMENT & PLAN Assessment: Stable status. No improvement in cognitive function. Pt was transferred to Acute care on 12-28-24 for fever and w/u revealed Enterococcus UTI and Pneumonia with Proteus and providencia and responded to antibiotics and was received back in [facility] on 01-01-25 on Levaquin and Augmentin for completion of course for a week. Diagnosis and treatment reviewed. Prognosis remains poor. No evident pain issues.Comfort objective being achieved.VSS. Family representatives kept updated. Some observation by family member about hiccups. will monitor and if they return then a trial with medicatios appropriately will be offered. No more hiccups reported to me by nursing staff. stable Plan: Current treatment continued as ongoing
[2025-03-02] MEDS: MIDODRINE 10 MG TABLET GT (14:04)
[2025-03-03] VITALS (10 sets, daily range): BP systolic 104–118; BP diastolic 62–74; PULSE 51–80; RESP 18–20; TEMP 36.1–36.6; O2SAT 96–98
[2025-03-03] MEDS: MIDODRINE 10 MG TABLET GT ×2 (05:18→22:00)
[2025-03-03] MEDS: DEX/HYPRO/GLY ARTIFICAL TEARS 225 DROP/15 ML BTL BOTH EYES ×2 (08:51→21:01)
[2025-03-03] MEDS: DEXLANSOPRAZOLE 30 MG GT (08:51)
[2025-03-03] MEDS: FISH OIL 1200 MG GT (08:51)
[2025-03-03] MEDS: MULTIVITAMIN W MINERALS 1 EACH TABLET GT (08:52)
[2025-03-03] MEDS: SENNOSIDES 8.6 MG TABLET GT ×2 (08:52→21:01)
[2025-03-03] MEDS: PROPRANOLOL 20 MG TABLET GT ×2 (13:52→22:01)
[2025-03-04] VITALS (10 sets, daily range): BP systolic 104–125; BP diastolic 63–76; PULSE 55–72; RESP 16–20; TEMP 36.4–36.7; O2SAT 96–97
[2025-03-04] MEDS: MIDODRINE 10 MG TABLET GT ×2 (05:32→14:00)
[2025-03-04] MEDS: CARBAMIDE PEROXIDE OTIC SOL 15 ML BTL 5 DROP BOTH EARS ×2 (09:10→22:00)
[2025-03-04] MEDS: DEX/HYPRO/GLY ARTIFICAL TEARS 225 DROP/15 ML BTL BOTH EYES ×2 (09:11→22:00)
[2025-03-04] MEDS: DEXLANSOPRAZOLE 30 MG GT (09:12)
[2025-03-04] MEDS: LOSARTAN 25 MG TABLET GT (09:12)
[2025-03-04] MEDS: FISH OIL 1200 MG GT (09:12)
[2025-03-04] MEDS: MULTIVITAMIN W MINERALS 1 EACH TABLET GT (09:13)
[2025-03-04] MEDS: SENNOSIDES 8.6 MG TABLET GT ×2 (09:13→22:00)
[2025-03-04] MEDS: MAG HYDROX/ALUMINUM HYD/SIMETH 355 ML BTL 30 ML PO (09:15)
[2025-03-04] MEDS: PROPRANOLOL 20 MG TABLET GT ×2 (14:00→22:00)
[2025-03-05] VITALS (10 sets, daily range): BP systolic 99–121; BP diastolic 56–79; PULSE 57–75; RESP 18–22; TEMP 36.3; O2SAT 92–98
[2025-03-05] MEDS: MIDODRINE 10 MG TABLET GT ×2 (05:29→13:47)
[2025-03-05] MEDS: PROPRANOLOL 20 MG TABLET GT ×2 (05:31→21:26)
[2025-03-05] MEDS: CARBAMIDE PEROXIDE OTIC SOL 15 ML BTL 5 DROP BOTH EARS ×2 (09:05→20:49)
[2025-03-05] MEDS: DEX/HYPRO/GLY ARTIFICAL TEARS 225 DROP/15 ML BTL BOTH EYES ×2 (09:06→20:49)
[2025-03-05] MEDS: DEXLANSOPRAZOLE 30 MG GT (09:06)
[2025-03-05] MEDS: LOSARTAN 25 MG TABLET GT (09:07)
[2025-03-05] MEDS: FISH OIL 1200 MG GT (09:07)
[2025-03-05] MEDS: MULTIVITAMIN W MINERALS 1 EACH TABLET GT (09:08)
[2025-03-05] MEDS: SENNOSIDES 8.6 MG TABLET GT ×2 (09:08→20:49)
[2025-03-06] VITALS (10 sets, daily range): BP systolic 104–120; BP diastolic 68–85; PULSE 42–80; RESP 16–20; TEMP 36.1–36.3; O2SAT 92–97
[2025-03-06] MEDS: MIDODRINE 10 MG TABLET GT ×2 (05:34→21:31)
[2025-03-06] MEDS: PROPRANOLOL 20 MG TABLET GT ×2 (05:34→14:11)
[2025-03-06] MEDS: DEX/HYPRO/GLY ARTIFICAL TEARS 225 DROP/15 ML BTL BOTH EYES ×2 (09:20→20:21)
[2025-03-06] MEDS: DEXLANSOPRAZOLE 30 MG GT (09:20)
[2025-03-06] MEDS: FISH OIL 1200 MG GT (09:20)
[2025-03-06] MEDS: SENNOSIDES 8.6 MG TABLET GT ×2 (09:21→20:21)
[2025-03-06] MEDS: MULTIVITAMIN W MINERALS 1 EACH TABLET GT (09:21)
[2025-03-06] MEDS: MAGNESIUM HYDROXIDE 30 ML ORAL SUSP ML GT (09:37)
[2025-03-06] MEDS: ACETAMINOPHEN 325 MG TABLET 650 MG GT ×2 (14:22→20:15)
[2025-03-06] MEDS: CARBAMIDE PEROXIDE OTIC SOL 15 ML BTL 5 DROP BOTH EARS (20:21)
[2025-03-06] MEDS: BISACODYL 10 MG SUPP.RECT PR (20:24)
--- NOTE | 2025-03-06 23:27 | ESPR_ITS ---
Progress Note - SubAcute DIAGNOSIS (1) Traumatic brain injury: Status: Chronic (2) Anoxic brain damage, not elsewhere classified: Status: Chronic (3) Tracheostomy status: Status: Chronic (4) Gastrostomy status: Status: Chronic (5) Chronic respiratory failure: Status: Chronic (6) UTI (urinary tract infection): Status: Acute (7) Right middle lobe pneumonia: Status: Acute SUBJECTIVE Fever:: none GI:: none Shortness of Breath:: none GI:: no complaints Pain:: none OBJECTIVE Most recent vital signs: Last Vital Signs Temp 97 F 03/06/25 17:25 Pulse 51 L 03/06/25 20:20 Resp 17 03/06/25 17:25 BP 108/68 03/06/25 20:20 Pulse Ox 97 03/06/25 17:25 O2 Del Method Blow-by 03/06/25 17:25 O2 Flow Rate 10 03/06/25 07:08 FiO2 35 03/06/25 07:08 Neurological:: awake Speech:: none Answers questions:: sometimes (Sometimes opens eyes to command.) Respiratory:: lungs clear Cardiovascular: RRR Abdomen: soft and nontender Extremities:: deformities Decubitus:: none Tracheostomy:: to blow by Feeding per:: G tube Complaints:: none ASSESSMENT & PLAN Assessment: Stable status. No improvement in cognitive function. Pt was transferred to Acute care on 12-28-24 for fever and w/u revealed Enterococcus UTI and Pneumonia with Proteus and providencia and responded to antibiotics and was received back in [facility] on 01-01-25 on Levaquin and Augmentin for completion of course for a week. Diagnosis and treatment reviewed. Prognosis remains poor. No evident pain issues.Comfort objective being achieved.VSS. Family representatives kept updated. Some observation by family member about hiccups. will monitor and if they return then a trial with medicatios appropriately will be offered. No more hiccups reported to me by nursing staff. stable Plan: Current treatment continued as ongoing
[2025-03-07] VITALS (9 sets, daily range): BP systolic 103–118; BP diastolic 58–70; PULSE 51–105; RESP 17–20; TEMP 36.2–36.3; O2SAT 93–100
[2025-03-07] MEDS: PROPRANOLOL 20 MG TABLET GT ×3 (05:52→21:52)
[2025-03-07] MEDS: MIDODRINE 10 MG TABLET GT ×3 (05:52→21:52)
[2025-03-07] MEDS: CARBAMIDE PEROXIDE OTIC SOL 15 ML BTL 5 DROP BOTH EARS ×2 (08:32→20:17)
[2025-03-07] MEDS: DEX/HYPRO/GLY ARTIFICAL TEARS 225 DROP/15 ML BTL BOTH EYES ×2 (08:32→20:17)
[2025-03-07] MEDS: DEXLANSOPRAZOLE 30 MG GT (08:32)
[2025-03-07] MEDS: FISH OIL 1200 MG GT (08:32)
[2025-03-07] MEDS: MULTIVITAMIN W MINERALS 1 EACH TABLET GT (08:33)
[2025-03-07] MEDS: SENNOSIDES 8.6 MG TABLET GT ×2 (08:33→20:18)
[2025-03-07] MEDS: LOSARTAN 25 MG TABLET GT (08:33)
[2025-03-07] MEDS: ACETAMINOPHEN 325 MG TABLET 650 MG GT (20:15)
[2025-03-08] VITALS (11 sets, daily range): BP systolic 99–121; BP diastolic 60–72; PULSE 51–75; RESP 16–20; TEMP 36.1–36.4; O2SAT 97–99
[2025-03-08] MEDS: MIDODRINE 10 MG TABLET GT ×3 (06:07→21:47)
[2025-03-08] MEDS: PROPRANOLOL 20 MG TABLET GT ×2 (06:07→21:47)
[2025-03-08] MEDS: DEX/HYPRO/GLY ARTIFICAL TEARS 225 DROP/15 ML BTL BOTH EYES ×2 (08:08→21:46)
[2025-03-08] MEDS: MULTIVITAMIN W MINERALS 1 EACH TABLET GT (08:09)
[2025-03-08] MEDS: DEXLANSOPRAZOLE 30 MG GT (08:09)
[2025-03-08] MEDS: SENNOSIDES 8.6 MG TABLET GT ×2 (08:09→21:48)
[2025-03-08] MEDS: FISH OIL 1200 MG GT (08:09)
[2025-03-08] MEDS: LOSARTAN 25 MG TABLET GT (08:09)
[2025-03-08] MEDS: MAGNESIUM HYDROXIDE 30 ML ORAL SUSP ML GT (21:49)
[2025-03-09] VITALS (10 sets, daily range): BP systolic 99–114; BP diastolic 62–69; PULSE 50–74; RESP 18–21; TEMP 36.2–36.6; O2SAT 96–98
[2025-03-09] MEDS: PROPRANOLOL 20 MG TABLET GT ×2 (05:27→22:16)
[2025-03-09] MEDS: MIDODRINE 10 MG TABLET GT ×3 (05:27→22:15)
[2025-03-09] MEDS: DEXLANSOPRAZOLE 30 MG GT (08:49)
[2025-03-09] MEDS: DEX/HYPRO/GLY ARTIFICAL TEARS 225 DROP/15 ML BTL BOTH EYES ×2 (08:49→20:37)
[2025-03-09] MEDS: FISH OIL 1200 MG GT (08:50)
[2025-03-09] MEDS: LOSARTAN 25 MG TABLET GT (08:50)
[2025-03-09] MEDS: MULTIVITAMIN W MINERALS 1 EACH TABLET GT (08:50)
[2025-03-09] MEDS: SENNOSIDES 8.6 MG TABLET GT ×2 (08:50→20:37)
[2025-03-09] MEDS: BISACODYL 10 MG SUPP.RECT PR (10:33)
[2025-03-09] MEDS: ACETAMINOPHEN 325 MG TABLET 650 MG GT (20:15)
[2025-03-10] VITALS (10 sets, daily range): BP systolic 97–125; BP diastolic 59–68; PULSE 53–81; RESP 18–20; TEMP 36.2–36.4; O2SAT 97–98
[2025-03-10] MEDS: MIDODRINE 10 MG TABLET GT ×3 (06:05→21:14)
[2025-03-10] MEDS: DEX/HYPRO/GLY ARTIFICAL TEARS 225 DROP/15 ML BTL BOTH EYES ×2 (09:18→20:10)
[2025-03-10] MEDS: DEXLANSOPRAZOLE 30 MG GT (09:18)
[2025-03-10] MEDS: MULTIVITAMIN W MINERALS 1 EACH TABLET GT (09:19)
[2025-03-10] MEDS: LOSARTAN 25 MG TABLET GT (09:19)
[2025-03-10] MEDS: FISH OIL 1200 MG GT (09:19)
[2025-03-10] MEDS: SENNOSIDES 8.6 MG TABLET GT ×2 (09:20→20:11)
[2025-03-10] MEDS: PROPRANOLOL 20 MG TABLET GT ×2 (14:18→21:14)
--- NOTE | 2025-03-10 23:07 | PD.SAPROG ---
Progress Note - SubAcute DIAGNOSIS (1) Traumatic brain injury: Status: Chronic (2) Anoxic brain damage, not elsewhere classified: Status: Chronic (3) Tracheostomy status: Status: Chronic (4) Gastrostomy status: Status: Chronic (5) Chronic respiratory failure: Status: Chronic (6) UTI (urinary tract infection): Status: Acute (7) Right middle lobe pneumonia: Status: Acute SUBJECTIVE Fever:: none GI:: none Shortness of Breath:: none GI:: no complaints Pain:: none OBJECTIVE Most recent vital signs: Last Vital Signs Temp 97.1 F 03/10/25 17:34 Pulse 60 03/10/25 21:14 Resp 18 03/10/25 19:05 BP 101/59 L 03/10/25 21:14 Pulse Ox 98 03/10/25 19:05 O2 Del Method Blow-by 03/09/25 06:00 O2 Flow Rate 10 03/10/25 19:05 FiO2 35 03/10/25 19:05 Neurological:: awake Speech:: none Answers questions:: sometimes (Sometimes opens eyes to command.) Respiratory:: lungs clear Cardiovascular: RRR Abdomen: soft and nontender Extremities:: deformities Decubitus:: none Tracheostomy:: to blow by Feeding per:: G tube Complaints:: none ASSESSMENT & PLAN Assessment: Stable status. No improvement in cognitive function. Pt was transferred to Acute care on 12-28-24 for fever and w/u revealed Enterococcus UTI and Pneumonia with Proteus and providencia and responded to antibiotics and was received back in [facility] on 01-01-25 on Levaquin and Augmentin for completion of course for a week. Diagnosis and treatment reviewed. Prognosis remains poor. No evident pain issues.Comfort objective being achieved.VSS. Family representatives kept updated. Some observation by family member about hiccups. will monitor and if they return then a trial with medicatios appropriately will be offered. No more hiccups reported to me by nursing staff. stable VSS Plan: Current treatment continued as ongoing
[2025-03-11] VITALS (11 sets, daily range): BP systolic 94–113; BP diastolic 63–74; PULSE 49–81; RESP 18–20; TEMP 36.1; O2SAT 95–99
[2025-03-11] MEDS: MIDODRINE 10 MG TABLET GT ×3 (05:15→21:23)
[2025-03-11] MEDS: PROPRANOLOL 20 MG TABLET GT ×2 (05:15→21:23)
[2025-03-11] MEDS: FISH OIL 1200 MG GT (08:31)
[2025-03-11] MEDS: DEXLANSOPRAZOLE 30 MG GT (08:31)
[2025-03-11] MEDS: DEX/HYPRO/GLY ARTIFICAL TEARS 225 DROP/15 ML BTL BOTH EYES ×2 (08:31→20:08)
[2025-03-11] MEDS: SENNOSIDES 8.6 MG TABLET GT ×2 (08:32→20:09)
[2025-03-11] MEDS: MULTIVITAMIN W MINERALS 1 EACH TABLET GT (08:32)
[2025-03-11] MEDS: LOSARTAN 25 MG TABLET GT (08:32)
[2025-03-11] MEDS: ACETAMINOPHEN 325 MG TABLET 650 MG GT (16:50)
[2025-03-11] MEDS: MAGNESIUM HYDROXIDE 30 ML ORAL SUSP ML GT (20:09)
[2025-03-12] VITALS (10 sets, daily range): BP systolic 94–129; BP diastolic 55–79; PULSE 52–73; RESP 16–20; TEMP 35.9–36.4; O2SAT 94–98
[2025-03-12] MEDS: MIDODRINE 10 MG TABLET GT ×3 (05:09→21:15)
[2025-03-12] MEDS: PROPRANOLOL 20 MG TABLET GT ×2 (05:10→14:03)
[2025-03-12] MEDS: DEX/HYPRO/GLY ARTIFICAL TEARS 225 DROP/15 ML BTL BOTH EYES ×2 (09:03→21:14)
[2025-03-12] MEDS: LOSARTAN 25 MG TABLET GT (09:04)
[2025-03-12] MEDS: SENNOSIDES 8.6 MG TABLET GT ×2 (09:04→21:14)
[2025-03-12] MEDS: MULTIVITAMIN W MINERALS 1 EACH TABLET GT (09:04)
[2025-03-12] MEDS: DEXLANSOPRAZOLE 30 MG GT (09:04)
[2025-03-12] MEDS: FISH OIL 1200 MG GT (09:04)
--- NOTE | 2025-03-12 09:59 | ESPR_ITS ---
Progress Note - SubAcute DIAGNOSIS (1) Traumatic brain injury: Status: Chronic (2) Anoxic brain damage, not elsewhere classified: Status: Chronic (3) Tracheostomy status: Status: Chronic (4) Gastrostomy status: Status: Chronic (5) Chronic respiratory failure: Status: Chronic (6) UTI (urinary tract infection): Status: Acute (7) Right middle lobe pneumonia: Status: Acute SUBJECTIVE Fever:: none GI:: none Shortness of Breath:: none GI:: no complaints Pain:: none OBJECTIVE Most recent vital signs: Last Vital Signs Temp 97.1 F 03/12/25 06:00 Pulse 53 L 03/12/25 09:04 Resp 20 03/12/25 06:00 BP 129/79 03/12/25 09:04 Pulse Ox 95 03/12/25 06:00 O2 Del Method Blow-by 03/12/25 06:00 O2 Flow Rate 10 03/12/25 05:21 FiO2 35 03/12/25 05:21 Neurological:: awake Speech:: none Answers questions:: sometimes (Sometimes opens eyes to command.) Respiratory:: lungs clear Cardiovascular: RRR Abdomen: soft and nontender Extremities:: deformities Decubitus:: none Tracheostomy:: to blow by Feeding per:: G tube Complaints:: none ASSESSMENT & PLAN Assessment: Stable status. No improvement in cognitive function. Pt was transferred to Acute care on 12-28-24 for fever and w/u revealed Enterococcus UTI and Pneumonia with Proteus and providencia and responded to antibiotics and was received back in [facility] on 01-01-25 on Levaquin and Augmentin for completion of course for a week. Diagnosis and treatment reviewed. Prognosis remains poor. No evident pain issues.Comfort objective being achieved.VSS. Family representatives kept updated. Some observation by family member about hiccups. will monitor and if they return then a trial with medicatios appropriately will be offered. No more hiccups reported to me by nursing staff. stable VSS Plan: Current treatment continued as ongoing
[2025-03-12] MEDS: BISACODYL 10 MG SUPP.RECT PR (13:30)
--- NOTE | 2025-03-12 13:43 | ESPR_ITS ---
Progress Note - SubAcute DIAGNOSIS (1) Traumatic brain injury: Status: Chronic (2) Anoxic brain damage, not elsewhere classified: Status: Chronic (3) Tracheostomy status: Status: Chronic (4) Gastrostomy status: Status: Chronic (5) Chronic respiratory failure: Status: Chronic SUBJECTIVE Fever:: none GI:: none Shortness of Breath:: none GI:: no complaints Pain:: none OBJECTIVE Most recent vital signs: Last Vital Signs Temp 97.2 F 03/12/25 12:00 Pulse 52 L 03/12/25 12:00 Resp 19 03/12/25 12:00 BP 94/55 L 03/12/25 12:00 Pulse Ox 95 03/12/25 06:00 O2 Del Method Blow-by 03/12/25 06:00 O2 Flow Rate 10 03/12/25 05:21 FiO2 35 03/12/25 05:21 Neurological:: awake Speech:: none Answers questions:: sometimes (Sometimes opens eyes to command.) Respiratory:: lungs clear Cardiovascular: RRR Abdomen: soft and nontender Extremities:: deformities Decubitus:: none Tracheostomy:: to blow by Feeding per:: G tube Complaints:: none ASSESSMENT & PLAN Assessment: Stable status. No improvement in cognitive function. Pt was transferred to Acute care on 12-28-24 for fever and w/u revealed Enterococcus UTI and Pneumonia with Proteus and providencia and responded to antibiotics and was received back in [facility] on 01-01-25 on Levaquin and Augmentin for completion of course for a week. Diagnosis and treatment reviewed. Prognosis remains poor. No evident pain issues.Comfort objective being achieved.VSS. Family representatives kept updated. Some observation by family member about hiccups. will monitor and if they return then a trial with medic atios appropriately will be offered. No more hiccups reported to me by nursing staff. stable VSS. Tolerating tube feeding Plan: Current treatment continued as ongoingf
[2025-03-12] MEDS: ACETAMINOPHEN 325 MG TABLET 650 MG GT (21:16)
[2025-03-13] VITALS (10 sets, daily range): BP systolic 96–117; BP diastolic 55–74; PULSE 50–69; RESP 16–21; TEMP 36.1–36.5; O2SAT 96–99
[2025-03-13] MEDS: DEXLANSOPRAZOLE 30 MG GT (09:02)
[2025-03-13] MEDS: FISH OIL 1200 MG GT (09:02)
[2025-03-13] MEDS: DEX/HYPRO/GLY ARTIFICAL TEARS 225 DROP/15 ML BTL BOTH EYES ×2 (09:02→21:19)
[2025-03-13] MEDS: MULTIVITAMIN W MINERALS 1 EACH TABLET GT (09:03)
[2025-03-13] MEDS: SENNOSIDES 8.6 MG TABLET GT ×2 (09:04→21:20)
[2025-03-13] MEDS: MIDODRINE 10 MG TABLET GT ×2 (14:00→21:20)
[2025-03-13] MEDS: PROPRANOLOL 20 MG TABLET GT ×2 (17:33→21:20)
[2025-03-14] VITALS (11 sets, daily range): BP systolic 90–105; BP diastolic 57–70; PULSE 53–75; RESP 18–20; TEMP 36.6–37.2; O2SAT 96–97
[2025-03-14] MEDS: MIDODRINE 10 MG TABLET GT ×3 (05:42→21:19)
[2025-03-14] MEDS: DEX/HYPRO/GLY ARTIFICAL TEARS 225 DROP/15 ML BTL BOTH EYES ×2 (08:55→20:51)
[2025-03-14] MEDS: DEXLANSOPRAZOLE 30 MG GT (08:55)
[2025-03-14] MEDS: FISH OIL 1200 MG GT (08:55)
[2025-03-14] MEDS: SENNOSIDES 8.6 MG TABLET GT ×2 (08:56→20:51)
[2025-03-14] MEDS: MULTIVITAMIN W MINERALS 1 EACH TABLET GT (08:56)
[2025-03-14] MEDS: PROPRANOLOL 20 MG TABLET GT (21:20)
[2025-03-15] VITALS: BP 105/66; PULSE 67; RESP 20; TEMP 36.6
[2025-03-15 05:31] VITALS: BP 90/58; PULSE 53
[2025-03-15] MEDS: MIDODRINE 10 MG TABLET GT ×3 (05:31→21:15)
[2025-03-15] MEDS: FISH OIL 1200 MG GT (09:13)
[2025-03-15] MEDS: DEXLANSOPRAZOLE 30 MG GT (09:13)
[2025-03-15] MEDS: DEX/HYPRO/GLY ARTIFICAL TEARS 225 DROP/15 ML BTL BOTH EYES ×2 (09:13→20:36)
[2025-03-15 09:14] VITALS: BP 110/65; PULSE 66
[2025-03-15] MEDS: SENNOSIDES 8.6 MG TABLET GT ×2 (09:14→20:37)
[2025-03-15] MEDS: MULTIVITAMIN W MINERALS 1 EACH TABLET GT (09:14)
[2025-03-15] MEDS: LOSARTAN 25 MG TABLET GT (09:14)
[2025-03-15 12:24] VITALS: PULSE 60; RESP 22; O2SAT 96; O2SAT 98
[2025-03-15 14:29] VITALS: BP 103/67; PULSE 70
[2025-03-15] MEDS: PROPRANOLOL 20 MG TABLET GT (14:29)
[2025-03-15 21:15] VITALS: BP 87/54; PULSE 62
[2025-03-16] VITALS (11 sets, daily range): BP systolic 92–116; BP diastolic 57–74; PULSE 57–75; RESP 17–20; TEMP 36.2–36.8; O2SAT 97–99
[2025-03-16] MEDS: MIDODRINE 10 MG TABLET GT ×3 (05:17→21:24)
[2025-03-16] MEDS: DEX/HYPRO/GLY ARTIFICAL TEARS 225 DROP/15 ML BTL BOTH EYES ×2 (09:43→21:23)
[2025-03-16] MEDS: MULTIVITAMIN W MINERALS 1 EACH TABLET GT (09:44)
[2025-03-16] MEDS: LOSARTAN 25 MG TABLET GT (09:44)
[2025-03-16] MEDS: FISH OIL 1200 MG GT (09:44)
[2025-03-16] MEDS: DEXLANSOPRAZOLE 30 MG GT (09:44)
[2025-03-16] MEDS: SENNOSIDES 8.6 MG TABLET GT ×2 (09:45→21:23)
[2025-03-16] MEDS: BISACODYL 10 MG SUPP.RECT PR (11:09)
[2025-03-17] VITALS (10 sets, daily range): BP systolic 108–121; BP diastolic 65–75; PULSE 56–65; RESP 18–20; TEMP 36.3–36.4; O2SAT 97–100
[2025-03-17] MEDS: PROPRANOLOL 20 MG TABLET GT (05:46)
[2025-03-17] MEDS: MIDODRINE 10 MG TABLET GT (05:46)
[2025-03-17] MEDS: FISH OIL 1200 MG GT (09:54)
[2025-03-17] MEDS: DEXLANSOPRAZOLE 30 MG GT (09:54)
[2025-03-17] MEDS: DEX/HYPRO/GLY ARTIFICAL TEARS 225 DROP/15 ML BTL BOTH EYES ×2 (09:54→21:29)
[2025-03-17] MEDS: SENNOSIDES 8.6 MG TABLET GT ×2 (09:55→21:30)
[2025-03-17] MEDS: MULTIVITAMIN W MINERALS 1 EACH TABLET GT (09:55)
[2025-03-17] MEDS: LOSARTAN 25 MG TABLET GT (09:55)
--- NOTE | 2025-03-17 17:45 | PD.SAPROG ---
Progress Note - SubAcute DIAGNOSIS (1) Traumatic brain injury: Status: Chronic (2) Anoxic brain damage, not elsewhere classified: Status: Chronic (3) Tracheostomy status: Status: Chronic (4) Gastrostomy status: Status: Chronic (5) Chronic respiratory failure: Status: Chronic SUBJECTIVE Fever:: none GI:: none Shortness of Breath:: none GI:: no complaints Pain:: none OBJECTIVE Most recent vital signs: Last Vital Signs Temp 98.2 F 03/21/25 05:22 Pulse 81 03/21/25 05:29 Resp 20 03/21/25 05:22 BP 140/78 H 03/21/25 05:29 Pulse Ox 98 03/21/25 05:22 O2 Del Method Blow-by 03/19/25 06:00 O2 Flow Rate 10 03/21/25 04:13 FiO2 35 03/21/25 04:13 Neurological:: awake Speech:: none Answers questions:: sometimes (Sometimes opens eyes to command.) Respiratory:: lungs clear Cardiovascular: RRR Abdomen: soft and nontender Extremities:: deformities Decubitus:: none Tracheostomy:: to blow by Feeding per:: G tube Complaints:: none ASSESSMENT & PLAN Assessment: Stable status. No improvement in cognitive function. Pt was transferred to Acute care on 12-28-24 for fever and w/u revealed Enterococcus UTI and Pneumonia with Proteus and providencia and responded to antibiotics and was received back in [facility] on 01-01-25 on Levaquin and Augmentin for completion of course for a week. Diagnosis and treatment reviewed. Prognosis remains poor. No evident pain issues.Comfort objective being achieved.VSS. Family representatives kept updated. Some observation by family member about hiccups. will monitor and if they return then a trial with medicatios appropriately will be offered. No more hiccups reported to me by nursing staff. stable VSS. Tolerating tube feeding Plan: Current treatment continued as ongoingf
[2025-03-18] VITALS (9 sets, daily range): BP systolic 92–131; BP diastolic 58–77; PULSE 52–73; RESP 18–19; TEMP 36.3–36.9; O2SAT 97–99
[2025-03-18] MEDS: PROPRANOLOL 20 MG TABLET GT ×2 (05:44→21:33)
[2025-03-18] MEDS: DEXLANSOPRAZOLE 30 MG GT (08:38)
[2025-03-18] MEDS: DEX/HYPRO/GLY ARTIFICAL TEARS 225 DROP/15 ML BTL BOTH EYES ×2 (08:38→21:32)
[2025-03-18] MEDS: LOSARTAN 25 MG TABLET GT (08:39)
[2025-03-18] MEDS: FISH OIL 1200 MG GT (08:39)
[2025-03-18] MEDS: SENNOSIDES 8.6 MG TABLET GT ×2 (08:40→21:32)
[2025-03-18] MEDS: MULTIVITAMIN W MINERALS 1 EACH TABLET GT (08:40)
[2025-03-18] MEDS: MIDODRINE 10 MG TABLET GT (13:56)
[2025-03-19] VITALS (9 sets, daily range): BP systolic 95–116; BP diastolic 60–76; PULSE 60–77; RESP 18–20; TEMP 36.6–36.7; O2SAT 93–99
[2025-03-19] MEDS: MIDODRINE 10 MG TABLET GT ×3 (05:10→21:31)
[2025-03-19] MEDS: DEX/HYPRO/GLY ARTIFICAL TEARS 225 DROP/15 ML BTL BOTH EYES ×2 (09:03→21:32)
[2025-03-19] MEDS: SENNOSIDES 8.6 MG TABLET GT ×2 (09:03→21:31)
[2025-03-19] MEDS: FISH OIL 1200 MG GT (09:04)
[2025-03-19] MEDS: DEXLANSOPRAZOLE 30 MG GT (09:04)
[2025-03-19] MEDS: MULTIVITAMIN W MINERALS 1 EACH TABLET GT (09:04)
[2025-03-19] MEDS: PROPRANOLOL 20 MG TABLET GT (21:31)
[2025-03-20] VITALS (9 sets, daily range): BP systolic 89–140; BP diastolic 54–83; PULSE 56–73; RESP 18–20; TEMP 36.4–36.6; O2SAT 97–98
[2025-03-20] MEDS: MIDODRINE 10 MG TABLET GT ×3 (05:35→21:13)
[2025-03-20] MEDS: DEXLANSOPRAZOLE 30 MG GT (08:45)
[2025-03-20] MEDS: FISH OIL 1200 MG GT (08:45)
[2025-03-20] MEDS: DEX/HYPRO/GLY ARTIFICAL TEARS 225 DROP/15 ML BTL BOTH EYES ×2 (08:45→20:23)
[2025-03-20] MEDS: SENNOSIDES 8.6 MG TABLET GT ×2 (08:46→20:23)
[2025-03-20] MEDS: MULTIVITAMIN W MINERALS 1 EACH TABLET GT (08:46)
[2025-03-20] MEDS: PROPRANOLOL 20 MG TABLET GT (13:43)
[2025-03-21] VITALS (10 sets, daily range): BP systolic 97–140; BP diastolic 64–78; PULSE 56–81; RESP 17–20; TEMP 36.2–36.8; O2SAT 96–100
[2025-03-21] MEDS: PROPRANOLOL 20 MG TABLET GT ×2 (05:29→13:43)
--- NOTE | 2025-03-21 08:03 | PD.SAPROG ---
Progress Note - SubAcute DIAGNOSIS (1) Traumatic brain injury: Status: Chronic (2) Anoxic brain damage, not elsewhere classified: Status: Chronic (3) Tracheostomy status: Status: Chronic (4) Gastrostomy status: Status: Chronic (5) Chronic respiratory failure: Status: Chronic SUBJECTIVE Fever:: none GI:: none Shortness of Breath:: none GI:: no complaints Pain:: none OBJECTIVE Most recent vital signs: Last Vital Signs Temp 98.2 F 03/21/25 05:22 Pulse 81 03/21/25 05:29 Resp 20 03/21/25 05:22 BP 140/78 H 03/21/25 05:29 Pulse Ox 98 03/21/25 05:22 O2 Del Method Blow-by 03/19/25 06:00 O2 Flow Rate 10 03/21/25 04:13 FiO2 35 03/21/25 04:13 Neurological:: awake Speech:: none Answers questions:: sometimes (Sometimes opens eyes to command.) Respiratory:: lungs clear Cardiovascular: RRR Abdomen: soft and nontender Extremities:: deformities Decubitus:: none Tracheostomy:: to blow by Feeding per:: G tube Complaints:: none ASSESSMENT & PLAN Assessment: Stable status. No improvement in cognitive function. Pt was transferred to Acute care on 12-28-24 for fever and w/u revealed Enterococcus UTI and Pneumonia with Proteus and providencia and responded to antibiotics and was received back in [facility] on 01-01-25 on Levaquin and Augmentin for completion of course for a week. Diagnosis and treatment reviewed. Prognosis remains poor. No evident pain issues.Comfort objective being achieved.VSS. Family representatives kept updated. Some observation by family member about hiccups. will monitor and if they return then a trial with medicatios appropriately will be offered. No more hiccups reported to me by nursing staff. stable VSS. Tolerating tube feeding Plan: Current treatment continued as ongoingf
[2025-03-21] MEDS: DEX/HYPRO/GLY ARTIFICAL TEARS 225 DROP/15 ML BTL BOTH EYES ×2 (09:31→21:13)
[2025-03-21] MEDS: DEXLANSOPRAZOLE 30 MG GT (09:31)
[2025-03-21] MEDS: LOSARTAN 25 MG TABLET GT (09:31)
[2025-03-21] MEDS: MULTIVITAMIN W MINERALS 1 EACH TABLET GT (09:31)
[2025-03-21] MEDS: FISH OIL 1200 MG GT (09:31)
[2025-03-21] MEDS: SENNOSIDES 8.6 MG TABLET GT ×2 (09:32→21:14)
[2025-03-21] MEDS: MIDODRINE 10 MG TABLET GT ×2 (13:42→21:14)
[2025-03-22] VITALS (10 sets, daily range): BP systolic 101–115; BP diastolic 58–73; PULSE 53–75; RESP 18–20; TEMP 36.1–36.4; O2SAT 95–99; BMI 23.8
[2025-03-22] MEDS: PROPRANOLOL 20 MG TABLET GT ×2 (06:03→21:18)
[2025-03-22] MEDS: MULTIVITAMIN W MINERALS 1 EACH TABLET GT (09:23)
[2025-03-22] MEDS: DEX/HYPRO/GLY ARTIFICAL TEARS 225 DROP/15 ML BTL BOTH EYES ×2 (09:23→21:17)
[2025-03-22] MEDS: FISH OIL 1200 MG GT (09:23)
[2025-03-22] MEDS: DEXLANSOPRAZOLE 30 MG GT (09:23)
[2025-03-22] MEDS: LOSARTAN 25 MG TABLET GT (09:23)
[2025-03-22] MEDS: MAGNESIUM HYDROXIDE 30 ML ORAL SUSP ML GT (09:24)
[2025-03-22] MEDS: SENNOSIDES 8.6 MG TABLET GT ×2 (09:24→21:17)
[2025-03-22] MEDS: MIDODRINE 10 MG TABLET GT (14:07)
[2025-03-23] VITALS (8 sets, daily range): BP systolic 96–127; BP diastolic 61–76; PULSE 54–97; RESP 15–119; TEMP 36.3–36.8; O2SAT 95–98
[2025-03-23] MEDS: PROPRANOLOL 20 MG TABLET GT ×3 (05:21→21:03)
[2025-03-23] MEDS: DEX/HYPRO/GLY ARTIFICAL TEARS 225 DROP/15 ML BTL BOTH EYES ×2 (08:41→21:01)
[2025-03-23] MEDS: FISH OIL 1200 MG GT (08:41)
[2025-03-23] MEDS: DEXLANSOPRAZOLE 30 MG GT (08:41)
[2025-03-23] MEDS: SENNOSIDES 8.6 MG TABLET GT ×2 (08:42→21:02)
[2025-03-23] MEDS: MULTIVITAMIN W MINERALS 1 EACH TABLET GT (08:42)
[2025-03-23] MEDS: MAGNESIUM HYDROXIDE 30 ML ORAL SUSP ML GT (08:43)
[2025-03-23] MEDS: MIDODRINE 10 MG TABLET GT ×2 (14:21→21:03)
[2025-03-24] VITALS (10 sets, daily range): BP systolic 89–140; BP diastolic 55–83; PULSE 50–67; RESP 17–20; TEMP 36.2–36.9; O2SAT 97–98
[2025-03-24] MEDS: MIDODRINE 10 MG TABLET GT ×3 (05:26→21:17)
[2025-03-24] MEDS: PROPRANOLOL 20 MG TABLET GT ×2 (05:26→21:17)
[2025-03-24] MEDS: DEX/HYPRO/GLY ARTIFICAL TEARS 225 DROP/15 ML BTL BOTH EYES ×2 (09:40→21:17)
[2025-03-24] MEDS: FISH OIL 1200 MG GT (09:41)
[2025-03-24] MEDS: DEXLANSOPRAZOLE 30 MG GT (09:41)
[2025-03-24] MEDS: MULTIVITAMIN W MINERALS 1 EACH TABLET GT (09:42)
[2025-03-24] MEDS: SENNOSIDES 8.6 MG TABLET GT ×2 (09:43→21:17)
[2025-03-25] VITALS (9 sets, daily range): BP systolic 90–112; BP diastolic 56–77; PULSE 54–73; RESP 18–20; TEMP 36.6–37.1; O2SAT 98
[2025-03-25] MEDS: MIDODRINE 10 MG TABLET GT ×2 (05:20→14:25)
[2025-03-25] MEDS: DEXLANSOPRAZOLE 30 MG GT (09:18)
[2025-03-25] MEDS: MULTIVITAMIN W MINERALS 1 EACH TABLET GT (09:18)
[2025-03-25] MEDS: DEX/HYPRO/GLY ARTIFICAL TEARS 225 DROP/15 ML BTL BOTH EYES ×2 (09:18→21:42)
[2025-03-25] MEDS: LOSARTAN 25 MG TABLET GT (09:18)
[2025-03-25] MEDS: FISH OIL 1200 MG GT (09:18)
[2025-03-25] MEDS: SENNOSIDES 8.6 MG TABLET GT ×2 (09:19→21:42)
--- NOTE | 2025-03-25 16:49 | ESPR_ITS ---
Progress Note - SubAcute DIAGNOSIS (1) Traumatic brain injury: Status: Chronic (2) Anoxic brain damage, not elsewhere classified: Status: Chronic (3) Tracheostomy status: Status: Chronic (4) Gastrostomy status: Status: Chronic (5) Chronic respiratory failure: Status: Chronic SUBJECTIVE Fever:: none GI:: none Shortness of Breath:: none GI:: no complaints Pain:: none OBJECTIVE Most recent vital signs: Last Vital Signs Temp 98.3 F 03/25/25 12:00 Pulse 73 03/25/25 14:26 Resp 19 03/25/25 12:00 BP 97/66 03/25/25 14:26 Pulse Ox 98 03/25/25 06:39 O2 Del Method Blow-by 03/24/25 17:45 O2 Flow Rate 10 03/25/25 06:39 FiO2 35 03/25/25 06:39 Neurological:: awake Speech:: none Answers questions:: sometimes (Sometimes opens eyes to command.) Respiratory:: lungs clear Cardiovascular: RRR Abdomen: soft and nontender Extremities:: deformities Decubitus:: none Tracheostomy:: to blow by Feeding per:: G tube Complaints:: none ASSESSMENT & PLAN Assessment: Stable status. No improvement in cognitive function. Pt was transferred to Acute care on 12-28-24 for fever and w/u revealed Enterococcus UTI and Pneumonia with Proteus and providencia and responded to antibiotics and was received back in [facility] on 01-01-25 on Levaquin and Augmentin for completion of course for a week. Diagnosis and treatment reviewed. Prognosis remains poor. No evident pain issues.Comfort objective being achieved.VSS. Family representatives kept updated. Some observation by family member about hiccups. will monitor and if they return then a trial with medicat ios appropriately will be offered. No more hiccups reported to me by nursing staff. stable VSS. Tolerating tube feeding. No pain issues Plan: Current treatment continued as ongoingf
[2025-03-26] VITALS (11 sets, daily range): BP systolic 90–117; BP diastolic 56–72; PULSE 54–66; RESP 18–19; TEMP 36.4–36.8; O2SAT 97–98
[2025-03-26] MEDS: MIDODRINE 10 MG TABLET GT ×2 (05:12→21:34)
[2025-03-26] MEDS: DEX/HYPRO/GLY ARTIFICAL TEARS 225 DROP/15 ML BTL BOTH EYES ×2 (09:34→21:33)
[2025-03-26] MEDS: FISH OIL 1200 MG GT (09:35)
[2025-03-26] MEDS: DEXLANSOPRAZOLE 30 MG GT (09:35)
[2025-03-26] MEDS: MULTIVITAMIN W MINERALS 1 EACH TABLET GT (09:36)
[2025-03-26] MEDS: SENNOSIDES 8.6 MG TABLET GT ×2 (09:36→21:33)
--- NOTE | 2025-03-26 14:41 | PC.SS ---
Resident remains on blow by with trach in place and GT for medication and nutrition. He is unable to make needs known, his decision maker is his daughter rAlene. Resident will remain in current care as he has no changes in care or condition, he will continue to have all subacute care needs met by staff. This SSD will continue to make daily contact with resident and will monitor for changes in mood and behavior
[2025-03-27] VITALS (9 sets, daily range): BP systolic 95–127; BP diastolic 61–74; PULSE 52–73; RESP 16–18; TEMP 36.5–36.9; O2SAT 96–98
[2025-03-27] MEDS: PROPRANOLOL 20 MG TABLET GT ×3 (05:09→21:17)
[2025-03-27] MEDS: DEXLANSOPRAZOLE 30 MG GT (08:08)
[2025-03-27] MEDS: DEX/HYPRO/GLY ARTIFICAL TEARS 225 DROP/15 ML BTL BOTH EYES ×2 (08:09→21:15)
[2025-03-27] MEDS: FISH OIL 1200 MG GT (08:09)
[2025-03-27] MEDS: SENNOSIDES 8.6 MG TABLET GT ×2 (08:10→21:16)
[2025-03-27] MEDS: MULTIVITAMIN W MINERALS 1 EACH TABLET GT (08:10)
[2025-03-27] MEDS: MIDODRINE 10 MG TABLET GT ×2 (14:15→21:16)
[2025-03-28] VITALS (7 sets, daily range): BP systolic 98–109; BP diastolic 59–65; PULSE 54–68; RESP 18–20; TEMP 36.6–36.8; O2SAT 96–98
[2025-03-28] MEDS: MIDODRINE 10 MG TABLET GT ×3 (05:39→21:18)
[2025-03-28] MEDS: FISH OIL 1200 MG GT (08:26)
[2025-03-28] MEDS: DEXLANSOPRAZOLE 30 MG GT (08:26)
[2025-03-28] MEDS: DEX/HYPRO/GLY ARTIFICAL TEARS 225 DROP/15 ML BTL BOTH EYES ×2 (08:26→21:17)
[2025-03-28] MEDS: SENNOSIDES 8.6 MG TABLET GT ×2 (08:26→21:18)
[2025-03-28] MEDS: MULTIVITAMIN W MINERALS 1 EACH TABLET GT (08:26)
[2025-03-28] MEDS: PROPRANOLOL 20 MG TABLET GT (14:10)
[2025-03-29] VITALS (10 sets, daily range): BP systolic 98–131; BP diastolic 56–76; PULSE 50–75; RESP 18–20; TEMP 36.4–36.9; O2SAT 97–98
[2025-03-29] MEDS: DEX/HYPRO/GLY ARTIFICAL TEARS 225 DROP/15 ML BTL BOTH EYES ×2 (09:15→21:14)
[2025-03-29] MEDS: FISH OIL 1200 MG GT (09:15)
[2025-03-29] MEDS: DEXLANSOPRAZOLE 30 MG GT (09:15)
[2025-03-29] MEDS: SENNOSIDES 8.6 MG TABLET GT ×2 (09:16→21:15)
[2025-03-29] MEDS: MULTIVITAMIN W MINERALS 1 EACH TABLET GT (09:16)
[2025-03-29] MEDS: PROPRANOLOL 20 MG TABLET GT ×2 (13:55→21:17)
[2025-03-29] MEDS: MIDODRINE 10 MG TABLET GT (13:55)
--- NOTE | 2025-03-29 14:15 | ESPR_ITS ---
Progress Note - SubAcute DIAGNOSIS (1) Traumatic brain injury: Status: Chronic (2) Anoxic brain damage, not elsewhere classified: Status: Chronic (3) Tracheostomy status: Status: Chronic (4) Gastrostomy status: Status: Chronic (5) Chronic respiratory failure: Status: Chronic SUBJECTIVE Fever:: none GI:: none Shortness of Breath:: none GI:: no complaints Pain:: none OBJECTIVE Most recent vital signs: Last Vital Signs Temp 97.4 F 04/02/25 18:00 Pulse 61 04/02/25 21:11 Resp 20 04/02/25 18:00 BP 102/58 L 04/02/25 21:11 Pulse Ox 96 04/02/25 16:25 O2 Del Method Blow-by 04/01/25 17:04 O2 Flow Rate 10 04/02/25 16:25 FiO2 35 04/02/25 16:25 Neurological:: awake Speech:: none Answers questions:: sometimes (Sometimes opens eyes to command.) Respiratory:: lungs clear Cardiovascular: RRR Abdomen: soft and nontender Extremities:: deformities Decubitus:: none Tracheostomy:: to blow by Feeding per:: G tube Complaints:: none ASSESSMENT & PLAN Assessment: Stable status. No improvement in cognitive function. Pt was transferred to Acute care on 12-28-24 for fever and w/u revealed Enterococcus UTI and Pneumonia with Proteus and providencia and responded to antibiotics and was received back in [facility] on 01-01-25 on Levaquin and Augmentin for completion of course for a week. Diagnosis and treatment reviewed. Prognosis remains poor. No evident pain issues.Comfort objective being achieved.VSS. Family representatives kept updated. Some observation by family member about hiccups. will monitor and if they return then a trial with medic atios appropriately will be offered. No more hiccups reported to me by nursing staff. stable VSS. Tolerating tube feeding. No pain issues Plan: Current treatment continued as ongoingf
[2025-03-30] VITALS (10 sets, daily range): BP systolic 103–120; BP diastolic 63–70; PULSE 50–68; RESP 17–20; TEMP 36.2–36.6; O2SAT 94–99
[2025-03-30] MEDS: MIDODRINE 10 MG TABLET GT ×3 (05:32→21:20)
[2025-03-30] MEDS: PROPRANOLOL 20 MG TABLET GT ×2 (05:32→13:59)
[2025-03-30] MEDS: DEX/HYPRO/GLY ARTIFICAL TEARS 225 DROP/15 ML BTL BOTH EYES ×2 (08:58→20:41)
[2025-03-30] MEDS: DEXLANSOPRAZOLE 30 MG GT (08:58)
[2025-03-30] MEDS: SENNOSIDES 8.6 MG TABLET GT ×2 (08:59→20:41)
[2025-03-30] MEDS: MULTIVITAMIN W MINERALS 1 EACH TABLET GT (08:59)
[2025-03-30] MEDS: FISH OIL 1200 MG GT (08:59)
[2025-03-31] VITALS (10 sets, daily range): BP systolic 97–128; BP diastolic 56–80; PULSE 54–83; RESP 18–20; TEMP 35.8–36.8; O2SAT 92–96
[2025-03-31] MEDS: MIDODRINE 10 MG TABLET GT ×3 (05:28→21:49)
[2025-03-31] MEDS: DEX/HYPRO/GLY ARTIFICAL TEARS 225 DROP/15 ML BTL BOTH EYES ×2 (08:36→20:47)
[2025-03-31] MEDS: DEXLANSOPRAZOLE 30 MG GT (08:37)
[2025-03-31] MEDS: MULTIVITAMIN W MINERALS 1 EACH TABLET GT (08:37)
[2025-03-31] MEDS: FISH OIL 1200 MG GT (08:37)
[2025-03-31] MEDS: SENNOSIDES 8.6 MG TABLET GT ×2 (08:38→20:48)
[2025-03-31] MEDS: PROPRANOLOL 20 MG TABLET GT (21:49)
[2025-04-01] VITALS (10 sets, daily range): BP systolic 99–125; BP diastolic 63–80; PULSE 47–65; RESP 16–19; TEMP 36.1–36.5; O2SAT 93–98
[2025-04-01] MEDS: PROPRANOLOL 20 MG TABLET GT ×2 (05:31→14:16)
[2025-04-01] MEDS: DEX/HYPRO/GLY ARTIFICAL TEARS 225 DROP/15 ML BTL BOTH EYES ×2 (08:35→20:48)
[2025-04-01] MEDS: DEXLANSOPRAZOLE 30 MG GT (08:35)
[2025-04-01] MEDS: FISH OIL 1200 MG GT (08:36)
[2025-04-01] MEDS: LOSARTAN 25 MG TABLET GT (08:36)
[2025-04-01] MEDS: MULTIVITAMIN W MINERALS 1 EACH TABLET GT (08:37)
[2025-04-01] MEDS: SENNOSIDES 8.6 MG TABLET GT ×2 (08:37→20:48)
[2025-04-01] MEDS: MIDODRINE 10 MG TABLET GT ×2 (14:16→21:19)
[2025-04-02] VITALS (10 sets, daily range): BP systolic 99–112; BP diastolic 58–73; PULSE 48–80; RESP 18–20; TEMP 36.1–36.7; O2SAT 95–97
[2025-04-02] MEDS: PROPRANOLOL 20 MG TABLET GT ×2 (05:09→21:11)
[2025-04-02] MEDS: MIDODRINE 10 MG TABLET GT ×3 (05:09→21:11)
[2025-04-02] MEDS: DEX/HYPRO/GLY ARTIFICAL TEARS 225 DROP/15 ML BTL BOTH EYES ×2 (09:54→21:12)
[2025-04-02] MEDS: DEXLANSOPRAZOLE 30 MG GT (09:54)
[2025-04-02] MEDS: MULTIVITAMIN W MINERALS 1 EACH TABLET GT (09:55)
[2025-04-02] MEDS: SENNOSIDES 8.6 MG TABLET GT ×2 (09:55→21:11)
[2025-04-02] MEDS: FISH OIL 1200 MG GT (09:55)
[2025-04-02] MEDS: MAGNESIUM HYDROXIDE 30 ML ORAL SUSP ML GT (09:56)
--- NOTE | 2025-04-02 21:52 | PD.SAPROG ---
Progress Note - SubAcute DIAGNOSIS (1) Traumatic brain injury: Status: Chronic (2) Anoxic brain damage, not elsewhere classified: Status: Chronic (3) Tracheostomy status: Status: Chronic (4) Gastrostomy status: Status: Chronic (5) Chronic respiratory failure: Status: Chronic SUBJECTIVE Fever:: none GI:: none Shortness of Breath:: none GI:: no complaints Pain:: none OBJECTIVE Most recent vital signs: Last Vital Signs Temp 97.4 F 04/02/25 18:00 Pulse 61 04/02/25 21:11 Resp 20 04/02/25 18:00 BP 102/58 L 04/02/25 21:11 Pulse Ox 96 04/02/25 16:25 O2 Del Method Blow-by 04/01/25 17:04 O2 Flow Rate 10 04/02/25 16:25 FiO2 35 04/02/25 16:25 Neurological:: awake Speech:: none Answers questions:: sometimes (Sometimes opens eyes to command.) Respiratory:: lungs clear Cardiovascular: RRR Abdomen: soft and nontender Extremities:: deformities Decubitus:: none Tracheostomy:: to blow by Feeding per:: G tube Complaints:: none ASSESSMENT & PLAN Assessment: Stable status. No improvement in cognitive function. Pt was transferred to Acute care on 12-28-24 for fever and w/u revealed Enterococcus UTI and Pneumonia with Proteus and providencia and responded to antibiotics and was received back in [facility] on 01-01-25 on Levaquin and Augmentin for completion of course for a week. Diagnosis and treatment reviewed. Prognosis remains poor. No evident pain issues.Comfort objective being achieved.VSS. Family representatives kept updated. Some observation by family member about hiccups. will monitor and if they return then a trial with medicatios appropriately will be offered. No more hiccups reported to me by nursing staff. stable VSS. Tolerating tube feeding. No pain issues Plan: Current treatment continued as ongoingf
[2025-04-02] MEDS: BISACODYL 10 MG SUPP.RECT PR (22:36)
[2025-04-03] VITALS (10 sets, daily range): BP systolic 95–116; BP diastolic 59–73; PULSE 48–69; RESP 18–20; TEMP 36.2–36.8; O2SAT 96–97
[2025-04-03] MEDS: PROPRANOLOL 20 MG TABLET GT (05:34)
[2025-04-03] MEDS: MIDODRINE 10 MG TABLET GT ×3 (05:34→22:15)
[2025-04-03] MEDS: DEX/HYPRO/GLY ARTIFICAL TEARS 225 DROP/15 ML BTL BOTH EYES ×2 (09:07→20:33)
[2025-04-03] MEDS: SENNOSIDES 8.6 MG TABLET GT ×2 (09:07→20:33)
[2025-04-03] MEDS: MULTIVITAMIN W MINERALS 1 EACH TABLET GT (09:07)
[2025-04-03] MEDS: FISH OIL 1200 MG GT (09:07)
[2025-04-03] MEDS: DEXLANSOPRAZOLE 30 MG GT (09:07)
[2025-04-03] MEDS: LOSARTAN 25 MG TABLET GT (09:08)
[2025-04-04] VITALS (9 sets, daily range): BP systolic 96–124; BP diastolic 60–72; PULSE 52–73; RESP 16–19; TEMP 36.3–36.6; O2SAT 95–98
[2025-04-04] MEDS: MIDODRINE 10 MG TABLET GT ×3 (05:20→21:28)
[2025-04-04] MEDS: FISH OIL 1200 MG GT (09:00)
[2025-04-04] MEDS: DEX/HYPRO/GLY ARTIFICAL TEARS 225 DROP/15 ML BTL BOTH EYES ×2 (09:00→20:48)
[2025-04-04] MEDS: DEXLANSOPRAZOLE 30 MG GT (09:00)
[2025-04-04] MEDS: LOSARTAN 25 MG TABLET GT (09:01)
[2025-04-04] MEDS: SENNOSIDES 8.6 MG TABLET GT ×2 (09:02→20:48)
[2025-04-04] MEDS: MULTIVITAMIN W MINERALS 1 EACH TABLET GT (09:02)
[2025-04-05] VITALS (11 sets, daily range): BP systolic 103–136; BP diastolic 65–89; PULSE 53–101; RESP 16–20; TEMP 36.1–36.5; O2SAT 97–98
[2025-04-05] MEDS: PROPRANOLOL 20 MG TABLET GT ×2 (05:12→21:13)
[2025-04-05] MEDS: DEX/HYPRO/GLY ARTIFICAL TEARS 225 DROP/15 ML BTL BOTH EYES ×2 (08:39→20:44)
[2025-04-05] MEDS: DEXLANSOPRAZOLE 30 MG GT (08:39)
[2025-04-05] MEDS: LOSARTAN 25 MG TABLET GT (08:40)
[2025-04-05] MEDS: FISH OIL 1200 MG GT (08:40)
[2025-04-05] MEDS: MULTIVITAMIN W MINERALS 1 EACH TABLET GT (08:40)
[2025-04-05] MEDS: SENNOSIDES 8.6 MG TABLET GT ×2 (08:40→20:45)
[2025-04-05] MEDS: MIDODRINE 10 MG TABLET GT ×2 (13:39→21:12)
[2025-04-06] VITALS (8 sets, daily range): BP systolic 98–116; BP diastolic 62–76; PULSE 54–73; RESP 16–20; TEMP 36–36.7; O2SAT 97–98
[2025-04-06] MEDS: MIDODRINE 10 MG TABLET GT ×3 (05:07→20:59)
[2025-04-06] MEDS: PROPRANOLOL 20 MG TABLET GT ×2 (05:07→14:02)
[2025-04-06] MEDS: DEXLANSOPRAZOLE 30 MG GT (09:07)
[2025-04-06] MEDS: DEX/HYPRO/GLY ARTIFICAL TEARS 225 DROP/15 ML BTL BOTH EYES ×2 (09:07→20:57)
[2025-04-06] MEDS: MULTIVITAMIN W MINERALS 1 EACH TABLET GT (09:08)
[2025-04-06] MEDS: FISH OIL 1200 MG GT (09:08)
[2025-04-06] MEDS: SENNOSIDES 8.6 MG TABLET GT ×2 (09:08→20:58)
[2025-04-06] MEDS: GUAIFENESIN 300 MG GT (09:18)
[2025-04-06] MEDS: ACETAMINOPHEN 325 MG TABLET 650 MG GT (09:18)
--- NOTE | 2025-04-06 21:14 | ESPR_ITS ---
Progress Note - SubAcute DIAGNOSIS (1) Traumatic brain injury: Status: Chronic (2) Anoxic brain damage, not elsewhere classified: Status: Chronic (3) Tracheostomy status: Status: Chronic (4) Gastrostomy status: Status: Chronic (5) Chronic respiratory failure: Status: Chronic SUBJECTIVE Fever:: none GI:: none Shortness of Breath:: none GI:: no complaints Pain:: none OBJECTIVE Most recent vital signs: Last Vital Signs Temp 98.0 F 04/06/25 06:00 Pulse 66 04/06/25 20:59 Resp 18 04/06/25 06:58 BP 98/62 04/06/25 20:59 Pulse Ox 98 04/06/25 06:58 O2 Del Method Blow-by 04/05/25 17:07 O2 Flow Rate 10 04/06/25 06:58 FiO2 35 04/06/25 06:58 Neurological:: awake Speech:: none Answers questions:: sometimes (Sometimes opens eyes to command.) Respiratory:: lungs clear Cardiovascular: RRR Abdomen: soft and nontender Extremities:: deformities Decubitus:: none Tracheostomy:: to blow by Feeding per:: G tube Complaints:: none ASSESSMENT & PLAN Assessment: Stable status. No improvement in cognitive function. Pt was transferred to Acute care on 12-28-24 for fever and w/u revealed Enterococcus UTI and Pneumonia with Proteus and providencia and responded to antibiotics and was received back in [facility] on 01-01-25 on Levaquin and Augmentin for completion of course for a week. Diagnosis and treatment reviewed. Prognosis remains poor. No evident pain issues.Comfort objective being achieved.VSS. Family representatives kept updated. Some observation by family member about hiccups. will monitor and if they return then a trial with medicat ios appropriately will be offered. No more hiccups reported to me by nursing staff. stable VSS. Tolerating tube feeding. No pain issues Plan: Current treatment continued as ongoingf
[2025-04-07] VITALS (10 sets, daily range): BP systolic 91–132; BP diastolic 61–78; PULSE 50–645; RESP 16–20; TEMP 36.1–36.6; O2SAT 95–99
[2025-04-07] MEDS: MIDODRINE 10 MG TABLET GT ×2 (05:14→21:13)
[2025-04-07] MEDS: DEX/HYPRO/GLY ARTIFICAL TEARS 225 DROP/15 ML BTL BOTH EYES ×2 (09:04→21:12)
[2025-04-07] MEDS: DEXLANSOPRAZOLE 30 MG GT (09:04)
[2025-04-07] MEDS: FISH OIL 1200 MG GT (09:05)
[2025-04-07] MEDS: MULTIVITAMIN W MINERALS 1 EACH TABLET GT (09:05)
[2025-04-07] MEDS: SENNOSIDES 8.6 MG TABLET GT ×2 (09:05→21:12)
[2025-04-07] MEDS: LOSARTAN 25 MG TABLET GT (09:05)
[2025-04-07] MEDS: PROPRANOLOL 20 MG TABLET GT (13:31)
[2025-04-08] VITALS (9 sets, daily range): BP systolic 100–116; BP diastolic 62–78; PULSE 50–76; RESP 18–20; TEMP 36.3–36.7; O2SAT 95–97
[2025-04-08] MEDS: MIDODRINE 10 MG TABLET GT ×3 (05:43→21:24)
[2025-04-08] MEDS: PROPRANOLOL 20 MG TABLET GT (05:43)
[2025-04-08] MEDS: DEX/HYPRO/GLY ARTIFICAL TEARS 225 DROP/15 ML BTL BOTH EYES ×2 (09:16→21:22)
[2025-04-08] MEDS: ACETAMINOPHEN 325 MG TABLET 650 MG GT (09:17)
[2025-04-08] MEDS: MULTIVITAMIN W MINERALS 1 EACH TABLET GT (09:17)
[2025-04-08] MEDS: LOSARTAN 25 MG TABLET GT (09:17)
[2025-04-08] MEDS: SENNOSIDES 8.6 MG TABLET GT ×2 (09:17→21:24)
[2025-04-08] MEDS: FISH OIL 1200 MG GT (09:17)
[2025-04-08] MEDS: DEXLANSOPRAZOLE 30 MG GT (09:17)
[2025-04-08] MEDS: GUAIFENESIN 300 MG GT (09:17)
[2025-04-09] VITALS (14 sets, daily range): BP systolic 90–109; BP diastolic 56–71; PULSE 53–77; RESP 18–21; TEMP 36.6–36.7; O2SAT 93–97
[2025-04-09] MEDS: MIDODRINE 10 MG TABLET GT ×3 (05:03→21:25)
[2025-04-09] MEDS: PROPRANOLOL 20 MG TABLET GT (05:04)
[2025-04-09] MEDS: DEX/HYPRO/GLY ARTIFICAL TEARS 225 DROP/15 ML BTL BOTH EYES ×2 (08:50→21:24)
[2025-04-09] MEDS: SENNOSIDES 8.6 MG TABLET GT ×2 (08:57→21:24)
[2025-04-09] MEDS: DEXLANSOPRAZOLE 30 MG GT (08:57)
[2025-04-09] MEDS: FISH OIL 1200 MG GT (08:57)
[2025-04-09] MEDS: MULTIVITAMIN W MINERALS 1 EACH TABLET GT (08:57)
[2025-04-10] VITALS (12 sets, daily range): BP systolic 107–122; BP diastolic 61–78; PULSE 56–78; RESP 18–20; TEMP 36.4–36.7; O2SAT 97–98
[2025-04-10] MEDS: PROPRANOLOL 20 MG TABLET GT ×2 (05:42→21:10)
[2025-04-10] MEDS: DEX/HYPRO/GLY ARTIFICAL TEARS 225 DROP/15 ML BTL BOTH EYES ×2 (09:21→21:09)
[2025-04-10] MEDS: DEXLANSOPRAZOLE 30 MG GT (09:22)
[2025-04-10] MEDS: FISH OIL 1200 MG GT (09:22)
[2025-04-10] MEDS: LOSARTAN 25 MG TABLET GT (09:22)
[2025-04-10] MEDS: SENNOSIDES 8.6 MG TABLET GT ×2 (09:22→21:09)
[2025-04-10] MEDS: MULTIVITAMIN W MINERALS 1 EACH TABLET GT (09:22)
--- NOTE | 2025-04-10 15:05 | PD.SAPROG ---
Progress Note - SubAcute DIAGNOSIS (1) Traumatic brain injury: Status: Chronic (2) Anoxic brain damage, not elsewhere classified: Status: Chronic (3) Tracheostomy status: Status: Chronic (4) Gastrostomy status: Status: Chronic (5) Chronic respiratory failure: Status: Chronic SUBJECTIVE Fever:: none GI:: none Shortness of Breath:: none GI:: no complaints Pain:: none OBJECTIVE Most recent vital signs: Last Vital Signs Temp 98 F 04/10/25 12:00 Pulse 58 L 04/10/25 13:52 Resp 20 04/10/25 12:00 BP 116/75 04/10/25 13:52 Pulse Ox 98 04/10/25 06:47 O2 Del Method Blow-by 04/09/25 18:00 O2 Flow Rate 10 04/10/25 06:47 FiO2 35 04/10/25 06:47 Neurological:: awake Speech:: none Answers questions:: sometimes (Sometimes opens eyes to command.) Respiratory:: lungs clear Cardiovascular: RRR Abdomen: soft and nontender Extremities:: deformities Decubitus:: none Tracheostomy:: to blow by Feeding per:: G tube Complaints:: none ASSESSMENT & PLAN Assessment: Stable status. No improvement in cognitive function. Pt was transferred to Acute care on 12-28-24 for fever and w/u revealed Enterococcus UTI and Pneumonia with Proteus and providencia and responded to antibiotics and was received back in [facility] on 01-01-25 on Levaquin and Augmentin for completion of course for a week. Diagnosis and treatment reviewed. Prognosis remains poor. No evident pain issues.Comfort objective being achieved.VSS. Family representatives kept updated. Some observation by family member about hiccups. will monitor and if they return then a trial with medicatios appropriately will be offered. No more hiccups reported to me by nursing staff. stable VSS. Tolerating tube feeding. No pain issues Plan: Current treatment continued as ongoingf
[2025-04-10] MEDS: MIDODRINE 10 MG TABLET GT (21:09)
[2025-04-11] VITALS (11 sets, daily range): BP systolic 95–133; BP diastolic 57–77; PULSE 53–77; RESP 18–20; TEMP 36.4–36.7; O2SAT 95–99
[2025-04-11] MEDS: PROPRANOLOL 20 MG TABLET GT ×2 (05:24→14:00)
[2025-04-11] MEDS: DEX/HYPRO/GLY ARTIFICAL TEARS 225 DROP/15 ML BTL BOTH EYES ×2 (09:07→21:05)
[2025-04-11] MEDS: FISH OIL 1200 MG GT (09:08)
[2025-04-11] MEDS: DEXLANSOPRAZOLE 30 MG GT (09:08)
[2025-04-11] MEDS: LOSARTAN 25 MG TABLET GT (09:09)
[2025-04-11] MEDS: SENNOSIDES 8.6 MG TABLET GT ×2 (09:09→21:05)
[2025-04-11] MEDS: MULTIVITAMIN W MINERALS 1 EACH TABLET GT (09:09)
[2025-04-11] MEDS: MIDODRINE 10 MG TABLET GT ×2 (14:00→21:06)
[2025-04-12] VITALS (12 sets, daily range): BP systolic 108–123; BP diastolic 65–76; PULSE 55–79; RESP 16–18; TEMP 36.3–36.6; O2SAT 98
[2025-04-12] MEDS: LOSARTAN 25 MG TABLET GT (08:13)
[2025-04-12] MEDS: FISH OIL 1200 MG GT (08:13)
[2025-04-12] MEDS: DEXLANSOPRAZOLE 30 MG GT (08:13)
[2025-04-12] MEDS: MULTIVITAMIN W MINERALS 1 EACH TABLET GT (08:14)
[2025-04-12] MEDS: SENNOSIDES 8.6 MG TABLET GT ×2 (08:14→20:49)
[2025-04-12] MEDS: DEX/HYPRO/GLY ARTIFICAL TEARS 225 DROP/15 ML BTL BOTH EYES ×2 (09:00→20:49)
--- NOTE | 2025-04-12 13:35 | PD.SAPROG ---
Progress Note - SubAcute DIAGNOSIS (1) Traumatic brain injury: Status: Chronic (2) Anoxic brain damage, not elsewhere classified: Status: Chronic (3) Tracheostomy status: Status: Chronic (4) Gastrostomy status: Status: Chronic (5) Chronic respiratory failure: Status: Chronic SUBJECTIVE Fever:: none GI:: none Shortness of Breath:: none GI:: no complaints Pain:: none OBJECTIVE Most recent vital signs: Last Vital Signs Temp 98.3 F 04/15/25 17:47 Pulse 71 04/15/25 21:07 Resp 16 04/15/25 20:56 BP 101/65 04/15/25 21:07 Pulse Ox 98 04/15/25 20:56 O2 Del Method Blow-by 04/14/25 17:28 O2 Flow Rate 10 04/15/25 20:56 FiO2 35 04/15/25 20:56 Neurological:: awake Speech:: none Answers questions:: sometimes (Sometimes opens eyes to command.) Respiratory:: lungs clear Cardiovascular: RRR Abdomen: soft and nontender Extremities:: deformities Decubitus:: none Tracheostomy:: to blow by Feeding per:: G tube Complaints:: none ASSESSMENT & PLAN Assessment: Stable status. No improvement in cognitive function. Pt was transferred to Acute care on 12-28-24 for fever and w/u revealed Enterococcus UTI and Pneumonia with Proteus and providencia and responded to antibiotics and was received back in [facility] on 01-01-25 on Levaquin and Augmentin for completion of course for a week. Diagnosis and treatment reviewed. Prognosis remains poor. No evident pain issues.Comfort objective being achieved.VSS. Family representatives kept updated. Some observation by family member about hiccups. will monitor and if they return then a trial with medicatios appropriately will be offered. No more hiccups reported to me by nursing staff. stable VSS. Tolerating tube feeding. No pain issues Plan: Current treatment continued as ongoingf
[2025-04-12] MEDS: MIDODRINE 10 MG TABLET GT ×2 (13:55→21:37)
[2025-04-12] MEDS: PROPRANOLOL 20 MG TABLET GT (13:56)
[2025-04-13] VITALS (13 sets, daily range): BP systolic 92–127; BP diastolic 53–78; PULSE 58–79; RESP 16–20; TEMP 36.3–36.6; O2SAT 97–98
[2025-04-13] MEDS: MIDODRINE 10 MG TABLET GT ×2 (05:14→21:13)
[2025-04-13] MEDS: PROPRANOLOL 20 MG TABLET GT (05:15)
[2025-04-13] MEDS: FISH OIL 1200 MG GT (08:50)
[2025-04-13] MEDS: LOSARTAN 25 MG TABLET GT (08:50)
[2025-04-13] MEDS: DEX/HYPRO/GLY ARTIFICAL TEARS 225 DROP/15 ML BTL BOTH EYES ×2 (08:50→20:52)
[2025-04-13] MEDS: DEXLANSOPRAZOLE 30 MG GT (08:50)
[2025-04-13] MEDS: SENNOSIDES 8.6 MG TABLET GT ×2 (08:51→20:52)
[2025-04-13] MEDS: MULTIVITAMIN W MINERALS 1 EACH TABLET GT (08:51)
[2025-04-14] VITALS (11 sets, daily range): BP systolic 95–117; BP diastolic 60–75; PULSE 56–74; RESP 18–20; TEMP 36.3–36.8; O2SAT 97–99
[2025-04-14] MEDS: MIDODRINE 10 MG TABLET GT ×2 (05:16→21:19)
[2025-04-14] MEDS: LOSARTAN 25 MG TABLET GT (09:14)
[2025-04-14] MEDS: DEXLANSOPRAZOLE 30 MG GT (09:14)
[2025-04-14] MEDS: FISH OIL 1200 MG GT (09:14)
[2025-04-14] MEDS: DEX/HYPRO/GLY ARTIFICAL TEARS 225 DROP/15 ML BTL BOTH EYES ×2 (09:14→21:18)
[2025-04-14] MEDS: MULTIVITAMIN W MINERALS 1 EACH TABLET GT (09:15)
[2025-04-14] MEDS: SENNOSIDES 8.6 MG TABLET GT ×2 (09:15→21:18)
[2025-04-14] MEDS: PROPRANOLOL 20 MG TABLET GT ×2 (14:11→21:19)
[2025-04-15] VITALS (12 sets, daily range): BP systolic 95–128; BP diastolic 57–76; PULSE 51–71; RESP 16–20; TEMP 36.3–36.8; O2SAT 98–99
[2025-04-15] MEDS: MIDODRINE 10 MG TABLET GT ×2 (05:20→21:07)
[2025-04-15] MEDS: PROPRANOLOL 20 MG TABLET GT ×3 (05:21→21:07)
[2025-04-15] MEDS: DEXLANSOPRAZOLE 30 MG GT (09:13)
[2025-04-15] MEDS: DEX/HYPRO/GLY ARTIFICAL TEARS 225 DROP/15 ML BTL BOTH EYES ×2 (09:13→20:48)
[2025-04-15] MEDS: FISH OIL 1200 MG GT (09:14)
[2025-04-15] MEDS: LOSARTAN 25 MG TABLET GT (09:14)
[2025-04-15] MEDS: SENNOSIDES 8.6 MG TABLET GT ×2 (09:15→20:48)
[2025-04-15] MEDS: MULTIVITAMIN W MINERALS 1 EACH TABLET GT (09:15)
[2025-04-15] MEDS: MAGNESIUM HYDROXIDE 30 ML ORAL SUSP ML GT (21:08)
[2025-04-16] VITALS (11 sets, daily range): BP systolic 98–126; BP diastolic 64–83; PULSE 55–84; RESP 18–20; TEMP 36.3–36.7; O2SAT 98–100
[2025-04-16] MEDS: PROPRANOLOL 20 MG TABLET GT ×3 (05:41→21:26)
[2025-04-16] MEDS: DEX/HYPRO/GLY ARTIFICAL TEARS 225 DROP/15 ML BTL BOTH EYES ×2 (08:54→21:27)
[2025-04-16] MEDS: FISH OIL 1200 MG GT (08:55)
[2025-04-16] MEDS: DEXLANSOPRAZOLE 30 MG GT (08:55)
[2025-04-16] MEDS: SENNOSIDES 8.6 MG TABLET GT ×2 (08:57→21:27)
[2025-04-16] MEDS: MULTIVITAMIN W MINERALS 1 EACH TABLET GT (08:57)
[2025-04-16] MEDS: MIDODRINE 10 MG TABLET GT ×2 (14:16→21:27)
--- NOTE | 2025-04-16 22:34 | ESPR_ITS ---
Progress Note - SubAcute DIAGNOSIS (1) Traumatic brain injury: Status: Chronic (2) Anoxic brain damage, not elsewhere classified: Status: Chronic (3) Tracheostomy status: Status: Chronic (4) Gastrostomy status: Status: Chronic (5) Chronic respiratory failure: Status: Chronic SUBJECTIVE Fever:: none GI:: none Shortness of Breath:: none GI:: no complaints Pain:: none OBJECTIVE Most recent vital signs: Last Vital Signs Temp 97.3 F 04/16/25 17:17 Pulse 84 04/16/25 21:27 Resp 18 04/16/25 21:27 BP 104/68 04/16/25 21:27 Pulse Ox 98 04/16/25 21:27 O2 Del Method Blow-by 04/14/25 17:28 O2 Flow Rate 10 04/16/25 21:27 FiO2 35 04/16/25 21:27 Neurological:: awake Speech:: none Answers questions:: sometimes (Sometimes opens eyes to command.) Respiratory:: lungs clear Cardiovascular: RRR Abdomen: soft and nontender Extremities:: deformities Decubitus:: none Tracheostomy:: to blow by Feeding per:: G tube Complaints:: none ASSESSMENT & PLAN Assessment: Stable status. No improvement in cognitive function. Pt was transferred to Acute care on 12-28-24 for fever and w/u revealed Enterococcus UTI and Pneumonia with Proteus and providencia and responded to antibiotics and was received back in [facility] on 01-01-25 on Levaquin and Augmentin for completion of course for a week. Diagnosis and treatment reviewed. Prognosis remains poor. No evident pain issues.Comfort objective being achieved.VSS. Family representatives kept updated. Some observation by family member about hiccups. will monitor and if they return then a trial with medica tios appropriately will be offered. No more hiccups reported to me by nursing staff. stable VSS. Tolerating tube feeding. No pain issues Plan: Current treatment continued as ongoingf
[2025-04-17] VITALS (14 sets, daily range): BP systolic 104–121; BP diastolic 52–72; PULSE 54–82; RESP 17–20; TEMP 36.2–36.6; O2SAT 95–98
[2025-04-17] MEDS: ACETAMINOPHEN 325 MG TABLET 650 MG GT (03:01)
[2025-04-17] MEDS: MIDODRINE 10 MG TABLET GT ×3 (05:30→21:24)
[2025-04-17] MEDS: DEX/HYPRO/GLY ARTIFICAL TEARS 225 DROP/15 ML BTL BOTH EYES ×2 (08:33→21:24)
[2025-04-17] MEDS: DEXLANSOPRAZOLE 30 MG GT (08:45)
[2025-04-17] MEDS: LOSARTAN 25 MG TABLET GT (08:46)
[2025-04-17] MEDS: SENNOSIDES 8.6 MG TABLET GT ×2 (08:46→21:26)
[2025-04-17] MEDS: FISH OIL 1200 MG GT (08:46)
[2025-04-17] MEDS: MULTIVITAMIN W MINERALS 1 EACH TABLET GT (08:46)
[2025-04-17] MEDS: PROPRANOLOL 20 MG TABLET GT (21:25)
[2025-04-18] VITALS (9 sets, daily range): BP systolic 99–112; BP diastolic 59–70; PULSE 53–73; RESP 18; TEMP 36.2–36.6; O2SAT 92–98
[2025-04-18] MEDS: MIDODRINE 10 MG TABLET GT ×3 (05:10→21:19)
[2025-04-18] MEDS: PROPRANOLOL 20 MG TABLET GT ×3 (05:10→21:19)
[2025-04-18] MEDS: DEX/HYPRO/GLY ARTIFICAL TEARS 225 DROP/15 ML BTL BOTH EYES ×2 (08:26→21:18)
[2025-04-18] MEDS: DEXLANSOPRAZOLE 30 MG GT (08:26)
[2025-04-18] MEDS: MULTIVITAMIN W MINERALS 1 EACH TABLET GT (08:26)
[2025-04-18] MEDS: FISH OIL 1200 MG GT (08:26)
[2025-04-18] MEDS: SENNOSIDES 8.6 MG TABLET GT ×2 (08:27→21:18)
[2025-04-18] MEDS: MAGNESIUM HYDROXIDE 30 ML ORAL SUSP ML GT (21:19)
[2025-04-19] VITALS (11 sets, daily range): BP systolic 100–135; BP diastolic 62–78; PULSE 54–77; RESP 16–18; TEMP 36.2–36.4; O2SAT 94–98
[2025-04-19] MEDS: MIDODRINE 10 MG TABLET GT ×2 (05:24→13:57)
[2025-04-19] MEDS: DEX/HYPRO/GLY ARTIFICAL TEARS 225 DROP/15 ML BTL BOTH EYES ×2 (08:12→21:04)
[2025-04-19] MEDS: DEXLANSOPRAZOLE 30 MG GT (08:14)
[2025-04-19] MEDS: FISH OIL 1200 MG GT (08:14)
[2025-04-19] MEDS: MULTIVITAMIN W MINERALS 1 EACH TABLET GT (08:15)
[2025-04-19] MEDS: SENNOSIDES 8.6 MG TABLET GT ×2 (08:15→21:05)
--- NOTE | 2025-04-19 12:36 | PC.SS ---
Resident remains on blow by with trach in place and GT for medication and nutrition. Resident daughter is his decision maker, resident unable to make needs known due to absence of speech. Resident will remain in current care and will continue to have all subacute care needs met by staff. This SSD will make daily contact with resident and will offer support as needed.
[2025-04-19] MEDS: PROPRANOLOL 20 MG TABLET GT ×2 (13:58→21:06)
[2025-04-20] VITALS (13 sets, daily range): BP systolic 99–123; BP diastolic 61–69; PULSE 53–71; RESP 16–18; TEMP 36.2–36.8; O2SAT 95–98
[2025-04-20] MEDS: PROPRANOLOL 20 MG TABLET GT ×2 (05:41→13:27)
[2025-04-20] MEDS: DEX/HYPRO/GLY ARTIFICAL TEARS 225 DROP/15 ML BTL BOTH EYES ×2 (08:58→21:18)
[2025-04-20] MEDS: DEXLANSOPRAZOLE 30 MG GT (08:58)
[2025-04-20] MEDS: LOSARTAN 25 MG TABLET GT (09:00)
[2025-04-20] MEDS: FISH OIL 1200 MG GT (09:00)
[2025-04-20] MEDS: MULTIVITAMIN W MINERALS 1 EACH TABLET GT (09:00)
[2025-04-20] MEDS: SENNOSIDES 8.6 MG TABLET GT ×2 (09:01→21:18)
--- NOTE | 2025-04-20 17:31 | PD.SAPROG ---
Progress Note - SubAcute DIAGNOSIS (1) Traumatic brain injury: Status: Chronic (2) Anoxic brain damage, not elsewhere classified: Status: Chronic (3) Tracheostomy status: Status: Chronic (4) Gastrostomy status: Status: Chronic (5) Chronic respiratory failure: Status: Chronic SUBJECTIVE Fever:: none GI:: none Shortness of Breath:: none GI:: no complaints Pain:: none OBJECTIVE Most recent vital signs: Last Vital Signs Temp 98.2 F 04/20/25 11:31 Pulse 59 L 04/20/25 13:27 Resp 17 04/20/25 11:31 BP 116/64 04/20/25 13:27 Pulse Ox 95 04/20/25 08:42 O2 Del Method Blow-by 04/18/25 17:02 O2 Flow Rate 10 04/20/25 08:42 FiO2 35 04/20/25 08:42 Neurological:: awake Speech:: none Answers questions:: sometimes (Sometimes opens eyes to command.) Respiratory:: lungs clear Cardiovascular: RRR Abdomen: soft and nontender Extremities:: deformities Decubitus:: none Tracheostomy:: to blow by Feeding per:: G tube Complaints:: none ASSESSMENT & PLAN Assessment: Stable status. No improvement in cognitive function. Pt was transferred to Acute care on 12-28-24 for fever and w/u revealed Enterococcus UTI and Pneumonia with Proteus and providencia and responded to antibiotics and was received back in [facility] on 01-01-25 on Levaquin and Augmentin for completion of course for a week. Diagnosis and treatment reviewed. Prognosis remains poor. No evident pain issues.Comfort objective being achieved.VSS. Family representatives kept updated. Some observation by family member about hiccups. will monitor and if they return then a trial with medicatios appropriately will be offered. No more hiccups reported to me by nursing staff. stable VSS. Tolerating tube feeding. No pain issues. stable status Plan: Current treatment continued as ongoing
[2025-04-20] MEDS: MIDODRINE 10 MG TABLET GT (21:18)
[2025-04-21] VITALS (13 sets, daily range): BP systolic 98–121; BP diastolic 48–75; PULSE 57–78; RESP 16–28; TEMP 36.1–36.6; O2SAT 97–99
[2025-04-21] MEDS: PROPRANOLOL 20 MG TABLET GT ×3 (05:33→21:00)
[2025-04-21] MEDS: DEXLANSOPRAZOLE 30 MG GT (08:02)
[2025-04-21] MEDS: DEX/HYPRO/GLY ARTIFICAL TEARS 225 DROP/15 ML BTL BOTH EYES ×2 (08:02→20:58)
[2025-04-21] MEDS: FISH OIL 1200 MG GT (08:03)
[2025-04-21] MEDS: LOSARTAN 25 MG TABLET GT (08:05)
[2025-04-21] MEDS: MULTIVITAMIN W MINERALS 1 EACH TABLET GT (08:06)
[2025-04-21] MEDS: SENNOSIDES 8.6 MG TABLET GT ×2 (08:06→20:59)
[2025-04-21] MEDS: MAGNESIUM HYDROXIDE 30 ML ORAL SUSP ML GT (09:17)
[2025-04-21] MEDS: MIDODRINE 10 MG TABLET GT (21:01)
[2025-04-21] MEDS: BISACODYL 10 MG SUPP.RECT PR (23:36)
[2025-04-22] VITALS (13 sets, daily range): BP systolic 100–113; BP diastolic 60–80; PULSE 48–82; RESP 16–20; TEMP 36.2–36.5; O2SAT 98–99
[2025-04-22] MEDS: MIDODRINE 10 MG TABLET GT ×2 (05:35→14:02)
[2025-04-22] MEDS: DEX/HYPRO/GLY ARTIFICAL TEARS 225 DROP/15 ML BTL BOTH EYES ×2 (08:45→21:06)
[2025-04-22] MEDS: FISH OIL 1200 MG GT (08:46)
[2025-04-22] MEDS: DEXLANSOPRAZOLE 30 MG GT (08:46)
[2025-04-22] MEDS: SENNOSIDES 8.6 MG TABLET GT ×2 (08:47→21:06)
[2025-04-22] MEDS: MULTIVITAMIN W MINERALS 1 EACH TABLET GT (08:47)
[2025-04-22] MEDS: PROPRANOLOL 20 MG TABLET GT ×2 (14:02→21:09)
[2025-04-23] VITALS (10 sets, daily range): BP systolic 107–119; BP diastolic 71–75; PULSE 52–78; RESP 16–19; TEMP 36.2–36.7; O2SAT 95–98
[2025-04-23] MEDS: PROPRANOLOL 20 MG TABLET GT ×3 (05:13→21:06)
[2025-04-23] MEDS: DEX/HYPRO/GLY ARTIFICAL TEARS 225 DROP/15 ML BTL BOTH EYES ×2 (09:22→21:05)
[2025-04-23] MEDS: FISH OIL 1200 MG GT (09:23)
[2025-04-23] MEDS: SENNOSIDES 8.6 MG TABLET GT ×2 (09:23→21:05)
[2025-04-23] MEDS: MULTIVITAMIN W MINERALS 1 EACH TABLET GT (09:23)
[2025-04-23] MEDS: DEXLANSOPRAZOLE 30 MG GT (09:23)
[2025-04-23] MEDS: MIDODRINE 10 MG TABLET GT (21:05)
[2025-04-24] VITALS (12 sets, daily range): BP systolic 103–147; BP diastolic 65–81; PULSE 53–73; RESP 16–20; TEMP 36.3–36.7; O2SAT 96–98
[2025-04-24] MEDS: MIDODRINE 10 MG TABLET GT ×2 (05:37→21:14)
[2025-04-24] MEDS: SENNOSIDES 8.6 MG TABLET GT ×2 (09:48→21:14)
[2025-04-24] MEDS: DEXLANSOPRAZOLE 30 MG GT (09:48)
[2025-04-24] MEDS: DEX/HYPRO/GLY ARTIFICAL TEARS 225 DROP/15 ML BTL BOTH EYES ×2 (09:48→21:13)
[2025-04-24] MEDS: FISH OIL 1200 MG GT (09:48)
[2025-04-24] MEDS: MULTIVITAMIN W MINERALS 1 EACH TABLET GT (09:48)
[2025-04-24] MEDS: LOSARTAN 25 MG TABLET GT (09:48)
--- NOTE | 2025-04-24 11:56 | PD.SAPROG ---
Progress Note - SubAcute DIAGNOSIS (1) Traumatic brain injury: Status: Chronic (2) Anoxic brain damage, not elsewhere classified: Status: Chronic (3) Tracheostomy status: Status: Chronic (4) Gastrostomy status: Status: Chronic (5) Chronic respiratory failure: Status: Chronic SUBJECTIVE Fever:: none GI:: none Shortness of Breath:: none GI:: no complaints Pain:: none OBJECTIVE Most recent vital signs: Last Vital Signs Temp 98.0 F 04/24/25 11:33 Pulse 66 04/24/25 11:33 Resp 18 04/24/25 11:33 BP 127/77 04/24/25 11:33 Pulse Ox 96 04/24/25 07:03 O2 Del Method Blow-by 04/23/25 17:50 O2 Flow Rate 10 04/24/25 07:03 FiO2 35 04/24/25 07:03 Neurological:: awake Speech:: none Answers questions:: sometimes (Sometimes opens eyes to command.) Respiratory:: lungs clear Cardiovascular: RRR Abdomen: soft and nontender Extremities:: deformities Decubitus:: none Tracheostomy:: to blow by Feeding per:: G tube Complaints:: none ASSESSMENT & PLAN Assessment: Stable status. No improvement in cognitive function. Pt was transferred to Acute care on 12-28-24 for fever and w/u revealed Enterococcus UTI and Pneumonia with Proteus and providencia and responded to antibiotics and was received back in [facility] on 01-01-25 on Levaquin and Augmentin for completion of course for a week. Diagnosis and treatment reviewed. Prognosis remains poor. No evident pain issues.Comfort objective being achieved.VSS. Family representatives kept updated. Some observation by family member about hiccups. will monitor and if they return then a trial with medicatios appropriately will be offered. No more hiccups reported to me by nursing staff. stable VSS. Tolerating tube feeding. No pain issues. stable status Plan: Current treatment continued as ongoing
[2025-04-24] MEDS: PROPRANOLOL 20 MG TABLET GT ×2 (14:53→21:14)
[2025-04-25] VITALS (11 sets, daily range): BP systolic 95–138; BP diastolic 56–85; PULSE 35–90; RESP 19–22; TEMP 36.3–36.8; O2SAT 96–99
[2025-04-25] MEDS: PROPRANOLOL 20 MG TABLET GT ×2 (05:27→14:47)
[2025-04-25] MEDS: DEXLANSOPRAZOLE 30 MG GT (08:59)
[2025-04-25] MEDS: DEX/HYPRO/GLY ARTIFICAL TEARS 225 DROP/15 ML BTL BOTH EYES ×2 (08:59→21:29)
[2025-04-25] MEDS: LOSARTAN 25 MG TABLET GT (08:59)
[2025-04-25] MEDS: MULTIVITAMIN W MINERALS 1 EACH TABLET GT (09:01)
[2025-04-25] MEDS: FISH OIL 1200 MG GT (09:01)
[2025-04-25] MEDS: SENNOSIDES 8.6 MG TABLET GT ×2 (09:02→21:29)
[2025-04-25] MEDS: MIDODRINE 10 MG TABLET GT (21:28)
[2025-04-26] VITALS (11 sets, daily range): BP systolic 110–128; BP diastolic 68–86; PULSE 60–99; RESP 18–22; TEMP 36.5–36.8; O2SAT 97–99
[2025-04-26] MEDS: PROPRANOLOL 20 MG TABLET GT ×3 (05:42→22:20)
[2025-04-26] MEDS: DEX/HYPRO/GLY ARTIFICAL TEARS 225 DROP/15 ML BTL BOTH EYES ×2 (08:24→20:55)
[2025-04-26] MEDS: DEXLANSOPRAZOLE 30 MG GT (08:25)
[2025-04-26] MEDS: FISH OIL 1200 MG GT (08:25)
[2025-04-26] MEDS: LOSARTAN 25 MG TABLET GT (08:25)
[2025-04-26] MEDS: MULTIVITAMIN W MINERALS 1 EACH TABLET GT (08:26)
[2025-04-26] MEDS: SENNOSIDES 8.6 MG TABLET GT ×2 (08:26→20:55)
[2025-04-26] MEDS: MIDODRINE 10 MG TABLET GT (14:20)
[2025-04-27] VITALS (9 sets, daily range): BP systolic 95–142; BP diastolic 59–85; PULSE 55–86; RESP 18–20; TEMP 36.1–36.8; O2SAT 97–98
[2025-04-27] MEDS: MIDODRINE 10 MG TABLET GT ×2 (05:30→13:21)
[2025-04-27] MEDS: PROPRANOLOL 20 MG TABLET GT ×3 (05:30→21:05)
[2025-04-27] MEDS: DEX/HYPRO/GLY ARTIFICAL TEARS 225 DROP/15 ML BTL BOTH EYES ×2 (08:30→20:55)
[2025-04-27] MEDS: DEXLANSOPRAZOLE 30 MG GT (08:30)
[2025-04-27] MEDS: FISH OIL 1200 MG GT (08:30)
[2025-04-27] MEDS: SENNOSIDES 8.6 MG TABLET GT ×2 (08:31→20:55)
[2025-04-27] MEDS: LOSARTAN 25 MG TABLET GT (08:31)
[2025-04-27] MEDS: MULTIVITAMIN W MINERALS 1 EACH TABLET GT (08:31)
[2025-04-28] VITALS (12 sets, daily range): BP systolic 94–134; BP diastolic 57–75; PULSE 59–88; RESP 17–20; TEMP 36.1–36.3; O2SAT 96–99
[2025-04-28] MEDS: PROPRANOLOL 20 MG TABLET GT ×2 (05:25→13:32)
[2025-04-28] MEDS: MIDODRINE 10 MG TABLET GT ×3 (05:25→21:06)
[2025-04-28] MEDS: DEX/HYPRO/GLY ARTIFICAL TEARS 225 DROP/15 ML BTL BOTH EYES ×2 (08:50→21:06)
[2025-04-28] MEDS: MULTIVITAMIN W MINERALS 1 EACH TABLET GT (08:51)
[2025-04-28] MEDS: LOSARTAN 25 MG TABLET GT (08:51)
[2025-04-28] MEDS: FISH OIL 1200 MG GT (08:51)
[2025-04-28] MEDS: SENNOSIDES 8.6 MG TABLET GT ×2 (08:51→21:06)
[2025-04-28] MEDS: DEXLANSOPRAZOLE 30 MG GT (08:51)
[2025-04-28] MEDS: MAGNESIUM HYDROXIDE 30 ML ORAL SUSP ML GT (13:36)
--- NOTE | 2025-04-28 22:09 | ESPR_ITS ---
Progress Note - SubAcute DIAGNOSIS (1) Traumatic brain injury: Status: Chronic (2) Anoxic brain damage, not elsewhere classified: Status: Chronic (3) Tracheostomy status: Status: Chronic (4) Gastrostomy status: Status: Chronic (5) Chronic respiratory failure: Status: Chronic SUBJECTIVE Fever:: none GI:: none Shortness of Breath:: none GI:: no complaints Pain:: none OBJECTIVE Most recent vital signs: Last Vital Signs Temp 96.9 F 04/28/25 17:10 Pulse 63 04/28/25 21:06 Resp 18 04/28/25 17:10 BP 94/57 L 04/28/25 21:06 Pulse Ox 97 04/28/25 17:10 O2 Del Method Blow-by 04/28/25 17:10 O2 Flow Rate 10 04/28/25 07:26 FiO2 35 04/28/25 07:26 Neurological:: awake Speech:: none Answers questions:: sometimes (Sometimes opens eyes to command.) Respiratory:: lungs clear Cardiovascular: RRR Abdomen: soft and nontender Extremities:: deformities Decubitus:: none Tracheostomy:: to blow by Feeding per:: G tube Complaints:: none ASSESSMENT & PLAN Assessment: Stable status. No improvement in cognitive function. Pt was transferred to Acute care on 12-28-24 for fever and w/u revealed Enterococcus UTI and Pneumonia with Proteus and providencia and responded to antibiotics and was received back in [facility] on 01-01-25 on Levaquin and Augmentin for completion of course for a week. Diagnosis and treatment reviewed. Prognosis remains poor. No evident pain issues.Comfort objective being achieved.VSS. Family representatives kept updated. Some observation by family member about hiccups. will monitor and if they return then a trial with medica tios appropriately will be offered. No more hiccups reported to me by nursing staff. stable VSS. Tolerating tube feeding. No pain issues. stable status Plan: Current treatment continued as ongoing
[2025-04-28] MEDS: BISACODYL 10 MG SUPP.RECT PR (23:33)
[2025-04-29] VITALS (12 sets, daily range): BP systolic 115–149; BP diastolic 66–83; PULSE 65–88; RESP 17–18; TEMP 36.2–36.6; O2SAT 92–99
[2025-04-29] MEDS: PROPRANOLOL 20 MG TABLET GT ×3 (05:16→22:20)
[2025-04-29] MEDS: DEXLANSOPRAZOLE 30 MG GT (08:42)
[2025-04-29] MEDS: FISH OIL 1200 MG GT (08:42)
[2025-04-29] MEDS: DEX/HYPRO/GLY ARTIFICAL TEARS 225 DROP/15 ML BTL BOTH EYES ×2 (08:42→20:52)
[2025-04-29] MEDS: LOSARTAN 25 MG TABLET GT (08:43)
[2025-04-29] MEDS: MULTIVITAMIN W MINERALS 1 EACH TABLET GT (08:43)
[2025-04-29] MEDS: SENNOSIDES 8.6 MG TABLET GT ×2 (08:44→20:52)
[2025-04-30] VITALS (13 sets, daily range): BP systolic 92–132; BP diastolic 60–86; PULSE 53–93; RESP 18–20; TEMP 36.2–36.7; O2SAT 96–100
[2025-04-30] MEDS: PROPRANOLOL 20 MG TABLET GT ×3 (05:19→21:00)
[2025-04-30] MEDS: FISH OIL 1200 MG GT (08:42)
[2025-04-30] MEDS: DEXLANSOPRAZOLE 30 MG GT (08:42)
[2025-04-30] MEDS: DEX/HYPRO/GLY ARTIFICAL TEARS 225 DROP/15 ML BTL BOTH EYES ×2 (08:42→20:55)
[2025-04-30] MEDS: MULTIVITAMIN W MINERALS 1 EACH TABLET GT (08:43)
[2025-04-30] MEDS: SENNOSIDES 8.6 MG TABLET GT ×2 (08:43→20:55)
--- NOTE | 2025-04-30 11:33 | PC.SS ---
Resident is on blow by with trach in place and GT for medication and nutrition. He does not have POA in place nor is he able to participate in process, his decision maker is his daughter. Resident has absence of speech unable to make needs known. He will remain in current care and will have all subacute care needs met by staff. This SSD will continue to make daily contact with resident and will monitor for changes in mood and behavior.
[2025-04-30] MEDS: MIDODRINE 10 MG TABLET GT (21:00)
[2025-05-01] VITALS (11 sets, daily range): BP systolic 96–133; BP diastolic 61–76; PULSE 57–88; RESP 18; TEMP -13.6–36.4; O2SAT 96–98
[2025-05-01] MEDS: PROPRANOLOL 20 MG TABLET GT ×2 (05:14→14:43)
[2025-05-01] MEDS: MIDODRINE 10 MG TABLET GT ×3 (05:14→21:00)
[2025-05-01] MEDS: DEX/HYPRO/GLY ARTIFICAL TEARS 225 DROP/15 ML BTL BOTH EYES ×2 (08:44→20:49)
[2025-05-01] MEDS: FISH OIL 1200 MG GT (08:45)
[2025-05-01] MEDS: LOSARTAN 25 MG TABLET GT (08:45)
[2025-05-01] MEDS: DEXLANSOPRAZOLE 30 MG GT (08:45)
[2025-05-01] MEDS: MULTIVITAMIN W MINERALS 1 EACH TABLET GT (08:46)
[2025-05-01] MEDS: MAGNESIUM HYDROXIDE 30 ML ORAL SUSP ML GT (08:46)
[2025-05-01] MEDS: SENNOSIDES 8.6 MG TABLET GT ×2 (08:46→20:49)
[2025-05-01] MEDS: ACETAMINOPHEN 325 MG TABLET 650 MG GT (12:13)
[2025-05-02] VITALS (15 sets, daily range): BP systolic 90–117; BP diastolic 58–76; PULSE 63–94; RESP 18–20; TEMP 36.1–36.9; O2SAT 93–99
[2025-05-02] MEDS: PROPRANOLOL 20 MG TABLET GT ×2 (05:18→23:19)
[2025-05-02] MEDS: FISH OIL 1200 MG GT (08:30)
[2025-05-02] MEDS: DEXLANSOPRAZOLE 30 MG GT (08:30)
[2025-05-02] MEDS: LOSARTAN 25 MG TABLET GT (08:30)
[2025-05-02] MEDS: DEX/HYPRO/GLY ARTIFICAL TEARS 225 DROP/15 ML BTL BOTH EYES ×2 (08:30→23:17)
[2025-05-02] MEDS: MULTIVITAMIN W MINERALS 1 EACH TABLET GT (08:31)
[2025-05-02] MEDS: SENNOSIDES 8.6 MG TABLET GT ×2 (08:31→23:17)
[2025-05-02] MEDS: MIDODRINE 10 MG TABLET GT (14:43)
--- NOTE | 2025-05-02 22:36 | ESPR_ITS ---
Progress Note - SubAcute DIAGNOSIS (1) Traumatic brain injury: Status: Chronic (2) Anoxic brain damage, not elsewhere classified: Status: Chronic (3) Tracheostomy status: Status: Chronic (4) Gastrostomy status: Status: Chronic (5) Chronic respiratory failure: Status: Chronic SUBJECTIVE Fever:: none GI:: none Shortness of Breath:: none GI:: no complaints Pain:: none OBJECTIVE Most recent vital signs: Last Vital Signs Temp 98.4 F 05/02/25 17:49 Pulse 93 05/02/25 18:10 Resp 18 05/02/25 18:10 BP 100/61 05/02/25 17:49 Pulse Ox 93 L 05/02/25 18:10 O2 Del Method Blow-by 05/01/25 17:08 O2 Flow Rate 10 05/02/25 18:10 FiO2 35 05/02/25 18:10 Neurological:: awake Speech:: none Answers questions:: sometimes (Sometimes opens eyes to command.) Respiratory:: lungs clear Cardiovascular: RRR Abdomen: soft and nontender Extremities:: deformities Decubitus:: none Tracheostomy:: to blow by Feeding per:: G tube Complaints:: none ASSESSMENT & PLAN Assessment: Stable status. No improvement in cognitive function. Pt was transferred to Acute care on 12-28-24 for fever and w/u revealed Enterococcus UTI and Pneumonia with Proteus and providencia and responded to antibiotics and was received back in [facility] on 01-01-25 on Levaquin and Augmentin for completion of course for a week. Diagnosis and treatment reviewed. Prognosis remains poor. No evident pain issues.Comfort objective being achieved.VSS. Family representatives kept updated. Some observation by family member about hiccups. will monitor and if they return then a trial with medic atios appropriately will be offered. No more hiccups reported to me by nursing staff. stable VSS. Tolerating tube feeding. No pain issues. stable status Plan: Current treatment continued as ongoing
[2025-05-03] VITALS (12 sets, daily range): BP systolic 96–129; BP diastolic 57–82; PULSE 66–96; RESP 16–18; TEMP 36.3–36.4; O2SAT 93–97
[2025-05-03] MEDS: PROPRANOLOL 20 MG TABLET GT (06:41)
[2025-05-03] MEDS: DEX/HYPRO/GLY ARTIFICAL TEARS 225 DROP/15 ML BTL BOTH EYES ×2 (08:34→21:30)
[2025-05-03] MEDS: FISH OIL 1200 MG GT (08:35)
[2025-05-03] MEDS: DEXLANSOPRAZOLE 30 MG GT (08:35)
[2025-05-03] MEDS: MULTIVITAMIN W MINERALS 1 EACH TABLET GT (08:36)
[2025-05-03] MEDS: SENNOSIDES 8.6 MG TABLET GT ×2 (08:36→21:30)
[2025-05-03] MEDS: MIDODRINE 10 MG TABLET GT ×2 (18:21→21:30)
[2025-05-04] VITALS (12 sets, daily range): BP systolic 91–113; BP diastolic 55–82; PULSE 62–83; RESP 18–20; TEMP 36.2–36.6; O2SAT 97–98
[2025-05-04] MEDS: PROPRANOLOL 20 MG TABLET GT ×3 (05:24→21:17)
[2025-05-04] MEDS: DEX/HYPRO/GLY ARTIFICAL TEARS 225 DROP/15 ML BTL BOTH EYES ×2 (08:42→21:18)
[2025-05-04] MEDS: CARBAMIDE PEROXIDE OTIC SOL 15 ML BTL 5 DROP BOTH EARS ×2 (08:42→20:54)
[2025-05-04] MEDS: DEXLANSOPRAZOLE 30 MG GT (08:42)
[2025-05-04] MEDS: LOSARTAN 25 MG TABLET GT (08:42)
[2025-05-04] MEDS: FISH OIL 1200 MG GT (08:42)
[2025-05-04] MEDS: SENNOSIDES 8.6 MG TABLET GT ×2 (08:43→20:54)
[2025-05-04] MEDS: MULTIVITAMIN W MINERALS 1 EACH TABLET GT (08:43)
[2025-05-04] MEDS: MIDODRINE 10 MG TABLET GT (21:18)
[2025-05-05] VITALS (11 sets, daily range): BP systolic 96–116; BP diastolic 59–71; PULSE 57–86; RESP 18–20; TEMP 36.1–36.4; O2SAT 96–99
[2025-05-05] MEDS: MIDODRINE 10 MG TABLET GT ×2 (05:31→13:41)
[2025-05-05] MEDS: DEXLANSOPRAZOLE 30 MG GT (08:01)
[2025-05-05] MEDS: DEX/HYPRO/GLY ARTIFICAL TEARS 225 DROP/15 ML BTL BOTH EYES ×2 (08:01→21:30)
[2025-05-05] MEDS: CARBAMIDE PEROXIDE OTIC SOL 15 ML BTL 5 DROP BOTH EARS ×2 (08:01→21:29)
[2025-05-05] MEDS: FISH OIL 1200 MG GT (08:03)
[2025-05-05] MEDS: MULTIVITAMIN W MINERALS 1 EACH TABLET GT (08:04)
[2025-05-05] MEDS: MAG HYDROX/ALUMINUM HYD/SIMETH 355 ML BTL 30 ML PO (08:05)
[2025-05-05] MEDS: SENNOSIDES 8.6 MG TABLET GT ×2 (08:05→21:30)
[2025-05-05] MEDS: PROPRANOLOL 20 MG TABLET GT (21:31)
[2025-05-06] VITALS (11 sets, daily range): BP systolic 93–114; BP diastolic 56–73; PULSE 54–73; RESP 18–20; TEMP 36.1–36.7; O2SAT 94–99
[2025-05-06] MEDS: MIDODRINE 10 MG TABLET GT ×3 (05:11→21:15)
[2025-05-06] MEDS: FISH OIL 1200 MG GT (09:34)
[2025-05-06] MEDS: LOSARTAN 25 MG TABLET GT (09:34)
[2025-05-06] MEDS: DEX/HYPRO/GLY ARTIFICAL TEARS 225 DROP/15 ML BTL BOTH EYES ×2 (09:34→21:15)
[2025-05-06] MEDS: CARBAMIDE PEROXIDE OTIC SOL 15 ML BTL 5 DROP BOTH EARS ×2 (09:34→21:15)
[2025-05-06] MEDS: DEXLANSOPRAZOLE 30 MG GT (09:34)
[2025-05-06] MEDS: SENNOSIDES 8.6 MG TABLET GT ×2 (09:35→21:15)
[2025-05-06] MEDS: MULTIVITAMIN W MINERALS 1 EACH TABLET GT (09:35)
--- NOTE | 2025-05-06 15:44 | PD.SAPROG ---
Progress Note - SubAcute DIAGNOSIS (1) Traumatic brain injury: Status: Chronic (2) Anoxic brain damage, not elsewhere classified: Status: Chronic (3) Tracheostomy status: Status: Chronic (4) Gastrostomy status: Status: Chronic (5) Chronic respiratory failure: Status: Chronic SUBJECTIVE Fever:: none GI:: none Shortness of Breath:: none GI:: no complaints Pain:: none OBJECTIVE Most recent vital signs: Last Vital Signs Temp 97.3 F 05/06/25 12:00 Pulse 56 L 05/06/25 14:34 Resp 19 05/06/25 12:00 BP 103/65 05/06/25 14:34 Pulse Ox 98 05/06/25 07:23 O2 Del Method Blow-by 05/06/25 06:00 O2 Flow Rate 10 05/06/25 07:23 FiO2 35 05/06/25 07:23 Neurological:: awake Speech:: none Answers questions:: sometimes (Sometimes opens eyes to command.) Respiratory:: lungs clear Cardiovascular: RRR Abdomen: soft and nontender Extremities:: deformities Decubitus:: none Tracheostomy:: to blow by Feeding per:: G tube Complaints:: none ASSESSMENT & PLAN Assessment: Stable status. No improvement in cognitive function. Pt was transferred to Acute care on 12-28-24 for fever and w/u revealed Enterococcus UTI and Pneumonia with Proteus and providencia and responded to antibiotics and was received back in [facility] on 01-01-25 on Levaquin and Augmentin for completion of course for a week. Diagnosis and treatment reviewed. Prognosis remains poor. No evident pain issues.Comfort objective being achieved.VSS. Family representatives kept updated. Some observation by family member about hiccups. will monitor and if they return then a trial with medicatios appropriately will be offered. No more hiccups reported to me by nursing staff. stable VSS. Tolerating tube feeding. No pain issues. stable status Plan: Current treatment continued as ongoing
[2025-05-07] VITALS (13 sets, daily range): BP systolic 98–125; BP diastolic 59–76; PULSE 56–75; RESP 18–20; TEMP 36.1–36.6; O2SAT 94–99
[2025-05-07] MEDS: MIDODRINE 10 MG TABLET GT ×2 (05:40→21:05)
[2025-05-07] MEDS: DEXLANSOPRAZOLE 30 MG GT (08:40)
[2025-05-07] MEDS: DEX/HYPRO/GLY ARTIFICAL TEARS 225 DROP/15 ML BTL BOTH EYES ×2 (08:40→20:29)
[2025-05-07] MEDS: FISH OIL 1200 MG GT (08:40)
[2025-05-07] MEDS: CARBAMIDE PEROXIDE OTIC SOL 15 ML BTL 5 DROP BOTH EARS ×2 (08:40→20:29)
[2025-05-07] MEDS: MULTIVITAMIN W MINERALS 1 EACH TABLET GT (08:44)
[2025-05-07] MEDS: SENNOSIDES 8.6 MG TABLET GT ×2 (08:44→20:29)
[2025-05-07] MEDS: PROPRANOLOL 20 MG TABLET GT (14:00)
--- NOTE | 2025-05-07 15:18 | PC.SS ---
Resident remains on blow by with trach in place and GT for medication and nutrition. He does not have POA in place, family aware this service is offered in facility but resident is unable to participate in this service. He is represented by his daughter Arlene as he is unable to make needs known. Resident will remain in current care and will continue to have all subacute care needs met by staff. This SSD will continue to make daily contact with resident and will offer support as needed.
[2025-05-08] VITALS (13 sets, daily range): BP systolic 98–112; BP diastolic 61–74; PULSE 64–78; RESP 18–20; TEMP 36.4–37; O2SAT 94–98
[2025-05-08] MEDS: PROPRANOLOL 20 MG TABLET GT ×2 (05:55→14:12)
[2025-05-08] MEDS: MIDODRINE 10 MG TABLET GT ×2 (05:55→20:42)
[2025-05-08] MEDS: DEX/HYPRO/GLY ARTIFICAL TEARS 225 DROP/15 ML BTL BOTH EYES ×2 (09:16→20:42)
[2025-05-08] MEDS: DEXLANSOPRAZOLE 30 MG GT (09:17)
[2025-05-08] MEDS: MULTIVITAMIN W MINERALS 1 EACH TABLET GT (09:19)
[2025-05-08] MEDS: FISH OIL 1200 MG GT (09:19)
[2025-05-08] MEDS: SENNOSIDES 8.6 MG TABLET GT ×2 (09:20→20:42)
[2025-05-08] MEDS: MAGNESIUM HYDROXIDE 30 ML ORAL SUSP ML GT (09:56)
[2025-05-09] VITALS (12 sets, daily range): BP systolic 102–144; BP diastolic 64–84; PULSE 53–76; RESP 17–20; TEMP 35.9–36.8; O2SAT 96–97
[2025-05-09] MEDS: BISACODYL 10 MG SUPP.RECT PR (02:31)
[2025-05-09] MEDS: PROPRANOLOL 20 MG TABLET GT ×2 (05:23→14:16)
[2025-05-09] MEDS: DEXLANSOPRAZOLE 30 MG GT (09:20)
[2025-05-09] MEDS: DEX/HYPRO/GLY ARTIFICAL TEARS 225 DROP/15 ML BTL BOTH EYES ×2 (09:20→21:13)
[2025-05-09] MEDS: FISH OIL 1200 MG GT (09:20)
[2025-05-09] MEDS: MULTIVITAMIN W MINERALS 1 EACH TABLET GT (09:21)
[2025-05-09] MEDS: SENNOSIDES 8.6 MG TABLET GT ×2 (09:21→21:13)
[2025-05-09] MEDS: MIDODRINE 10 MG TABLET GT (21:12)
[2025-05-10] VITALS (10 sets, daily range): BP systolic 99–122; BP diastolic 64–80; PULSE 55–75; RESP 17–20; TEMP 36.3–37; O2SAT 97–98
[2025-05-10] MEDS: MIDODRINE 10 MG TABLET GT ×2 (05:38→21:13)
[2025-05-10] MEDS: FISH OIL 1200 MG GT (08:41)
[2025-05-10] MEDS: DEXLANSOPRAZOLE 30 MG GT (08:41)
[2025-05-10] MEDS: DEX/HYPRO/GLY ARTIFICAL TEARS 225 DROP/15 ML BTL BOTH EYES ×2 (08:41→21:12)
[2025-05-10] MEDS: MULTIVITAMIN W MINERALS 1 EACH TABLET GT (08:42)
[2025-05-10] MEDS: SENNOSIDES 8.6 MG TABLET GT ×2 (08:43→21:13)
[2025-05-10] MEDS: PROPRANOLOL 20 MG TABLET GT ×2 (18:24→21:13)
--- NOTE | 2025-05-10 23:07 | PD.SAPROG ---
Progress Note - SubAcute DIAGNOSIS (1) Traumatic brain injury: Status: Chronic (2) Anoxic brain damage, not elsewhere classified: Status: Chronic (3) Tracheostomy status: Status: Chronic (4) Gastrostomy status: Status: Chronic (5) Chronic respiratory failure: Status: Chronic SUBJECTIVE Fever:: none GI:: none Shortness of Breath:: none GI:: no complaints Pain:: none OBJECTIVE Most recent vital signs: Last Vital Signs Temp 98.2 F 05/10/25 18:00 Pulse 64 05/10/25 21:13 Resp 20 05/10/25 18:00 BP 106/64 05/10/25 21:13 Pulse Ox 97 05/10/25 18:00 O2 Del Method Blow-by 05/10/25 11:49 O2 Flow Rate 10 05/10/25 09:30 FiO2 35 05/10/25 09:30 Neurological:: awake Speech:: none Answers questions:: sometimes (Sometimes opens eyes to command.) Respiratory:: lungs clear Cardiovascular: RRR Abdomen: soft and nontender Extremities:: deformities Decubitus:: none Tracheostomy:: to blow by Feeding per:: G tube Complaints:: none ASSESSMENT & PLAN Assessment: Stable status. No improvement in cognitive function. Pt was transferred to Acute care on 12-28-24 for fever and w/u revealed Enterococcus UTI and Pneumonia with Proteus and providencia and responded to antibiotics and was received back in [facility] on 01-01-25 on Levaquin and Augmentin for completion of course for a week. Diagnosis and treatment reviewed. Prognosis remains poor. No evident pain issues.Comfort objective being achieved.VSS. Family representatives kept updated. Some observation by family member about hiccups. will monitor and if they return then a trial with medicatios appropriately will be offered. No more hiccups reported to me by nursing staff. stable VSS. Tolerating tube feeding. No pain issues. stable status Plan: Current treatment continued as ongoing
[2025-05-11] VITALS (14 sets, daily range): BP systolic 94–121; BP diastolic 58–76; PULSE 53–74; RESP 16–20; TEMP 36.5–37.1; O2SAT 95–98
[2025-05-11] MEDS: MIDODRINE 10 MG TABLET GT ×2 (05:34→21:06)
[2025-05-11] MEDS: FISH OIL 1200 MG GT (08:42)
[2025-05-11] MEDS: MULTIVITAMIN W MINERALS 1 EACH TABLET GT (08:42)
[2025-05-11] MEDS: DEXLANSOPRAZOLE 30 MG GT (08:42)
[2025-05-11] MEDS: DEX/HYPRO/GLY ARTIFICAL TEARS 225 DROP/15 ML BTL BOTH EYES ×2 (08:42→21:06)
[2025-05-11] MEDS: LOSARTAN 25 MG TABLET GT (08:42)
[2025-05-11] MEDS: SENNOSIDES 8.6 MG TABLET GT ×2 (08:43→21:06)
[2025-05-11] MEDS: PROPRANOLOL 20 MG TABLET GT (14:35)
[2025-05-12] VITALS (9 sets, daily range): BP systolic 95–125; BP diastolic 57–83; PULSE 55–77; RESP 16–20; TEMP 36.5–36.8; O2SAT 97–98
[2025-05-12] MEDS: MAGNESIUM HYDROXIDE 30 ML ORAL SUSP ML GT (00:11)
[2025-05-12] MEDS: MIDODRINE 10 MG TABLET GT (05:20)
[2025-05-12] MEDS: DEX/HYPRO/GLY ARTIFICAL TEARS 225 DROP/15 ML BTL BOTH EYES (08:34)
[2025-05-12] MEDS: FISH OIL 1200 MG GT (08:35)
[2025-05-12] MEDS: DEXLANSOPRAZOLE 30 MG GT (08:35)
[2025-05-12] MEDS: LOSARTAN 25 MG TABLET GT (08:36)
[2025-05-12] MEDS: SENNOSIDES 8.6 MG TABLET GT ×2 (08:37→21:06)
[2025-05-12] MEDS: MULTIVITAMIN W MINERALS 1 EACH TABLET GT (08:37)
--- NOTE | 2025-05-12 14:20 | ESPR_ITS ---
Progress Note - SubAcute DIAGNOSIS (1) Traumatic brain injury: Status: Chronic (2) Anoxic brain damage, not elsewhere classified: Status: Chronic (3) Tracheostomy status: Status: Chronic (4) Gastrostomy status: Status: Chronic (5) Chronic respiratory failure: Status: Chronic SUBJECTIVE Fever:: none GI:: none Shortness of Breath:: none GI:: no complaints Pain:: none OBJECTIVE Most recent vital signs: Last Vital Signs Temp 97.3 F 05/15/25 17:03 Pulse 71 05/15/25 17:03 Resp 17 05/15/25 17:03 BP 127/86 H 05/15/25 17:03 Pulse Ox 98 05/15/25 17:03 O2 Del Method Blow-by 05/15/25 17:03 O2 Flow Rate 10 05/15/25 09:00 FiO2 35 05/15/25 09:00 Neurological:: awake Speech:: none Answers questions:: sometimes (Sometimes opens eyes to command.) Respiratory:: lungs clear Cardiovascular: RRR Abdomen: soft and nontender Extremities:: deformities Decubitus:: none Tracheostomy:: to blow by Feeding per:: G tube Complaints:: none ASSESSMENT & PLAN Assessment: Stable status. No improvement in cognitive function. Pt was transferred to Acute care on 12-28-24 for fever and w/u revealed Enterococcus UTI and Pneumonia with Proteus and providencia and responded to antibiotics and was received back in [facility] on 01-01-25 on Levaquin and Augmentin for completion of course for a week. Diagnosis and treatment reviewed. Prognosis remains poor. No evident pain issues.Comfort objective being achieved.VSS. Family representatives kept updated. Some observation by family member about hiccups. will monitor and if they return then a trial with medic atios appropriately will be offered. No more hiccups reported to me by nursing staff. stable VSS. Tolerating tube feeding. No pain issues. stable status Plan: Current treatment continued as ongoing
[2025-05-12] MEDS: PROPRANOLOL 20 MG TABLET GT (21:06)
[2025-05-13] VITALS (11 sets, daily range): BP systolic 95–116; BP diastolic 62–74; PULSE 53–87; RESP 18–19; TEMP 36.1–36.5; O2SAT 96–98
[2025-05-13] MEDS: MIDODRINE 10 MG TABLET GT ×3 (05:30→21:01)
[2025-05-13] MEDS: DEX/HYPRO/GLY ARTIFICAL TEARS 225 DROP/15 ML BTL BOTH EYES ×2 (08:32→21:02)
[2025-05-13] MEDS: MULTIVITAMIN W MINERALS 1 EACH TABLET GT (08:32)
[2025-05-13] MEDS: SENNOSIDES 8.6 MG TABLET GT ×2 (08:32→21:01)
[2025-05-13] MEDS: FISH OIL 1200 MG GT (08:32)
[2025-05-13] MEDS: LOSARTAN 25 MG TABLET GT (08:32)
[2025-05-13] MEDS: DEXLANSOPRAZOLE 30 MG GT (08:32)
[2025-05-13] MEDS: PROPRANOLOL 20 MG TABLET GT (21:01)
[2025-05-14] VITALS (12 sets, daily range): BP systolic 98–126; BP diastolic 63–84; PULSE 58–88; RESP 18–20; TEMP 36–36.6; O2SAT 97–100
[2025-05-14] MEDS: PROPRANOLOL 20 MG TABLET GT ×2 (05:32→21:00)
[2025-05-14] MEDS: SENNOSIDES 8.6 MG TABLET GT ×2 (09:45→20:56)
[2025-05-14] MEDS: DEX/HYPRO/GLY ARTIFICAL TEARS 225 DROP/15 ML BTL BOTH EYES ×2 (09:45→20:56)
[2025-05-14] MEDS: LOSARTAN 25 MG TABLET GT (09:45)
[2025-05-14] MEDS: FISH OIL 1200 MG GT (09:45)
[2025-05-14] MEDS: DEXLANSOPRAZOLE 30 MG GT (10:05)
[2025-05-14] MEDS: MULTIVITAMIN W MINERALS 1 EACH TABLET GT (10:06)
[2025-05-14] MEDS: MIDODRINE 10 MG TABLET GT (13:53)
[2025-05-15] VITALS (12 sets, daily range): BP systolic 97–132; BP diastolic 62–86; PULSE 52–80; RESP 17–20; TEMP 36.2–36.9; O2SAT 95–98
[2025-05-15] MEDS: MIDODRINE 10 MG TABLET GT ×3 (05:48→21:00)
[2025-05-15] MEDS: SENNOSIDES 8.6 MG TABLET GT ×2 (08:08→20:52)
[2025-05-15] MEDS: MULTIVITAMIN W MINERALS 1 EACH TABLET GT (08:08)
[2025-05-15] MEDS: FISH OIL 1200 MG GT (08:08)
[2025-05-15] MEDS: LOSARTAN 25 MG TABLET GT (08:08)
[2025-05-15] MEDS: DEX/HYPRO/GLY ARTIFICAL TEARS 225 DROP/15 ML BTL BOTH EYES ×2 (08:08→20:52)
[2025-05-15] MEDS: DEXLANSOPRAZOLE 30 MG GT (08:08)
[2025-05-15] MEDS: PROPRANOLOL 20 MG TABLET GT ×2 (14:01→21:00)
[2025-05-16] VITALS (12 sets, daily range): BP systolic 103–130; BP diastolic 59–85; PULSE 59–85; RESP 17–21; TEMP 36.1–36.4; O2SAT 96–98
[2025-05-16] MEDS: DEX/HYPRO/GLY ARTIFICAL TEARS 225 DROP/15 ML BTL BOTH EYES ×2 (08:51→20:49)
[2025-05-16] MEDS: DEXLANSOPRAZOLE 30 MG GT (08:52)
[2025-05-16] MEDS: FISH OIL 1200 MG GT (08:52)
[2025-05-16] MEDS: MULTIVITAMIN W MINERALS 1 EACH TABLET GT (08:54)
[2025-05-16] MEDS: SENNOSIDES 8.6 MG TABLET GT ×2 (08:54→20:51)
[2025-05-16] MEDS: PROPRANOLOL 20 MG TABLET GT ×2 (13:37→21:17)
[2025-05-16] MEDS: MAGNESIUM HYDROXIDE 30 ML ORAL SUSP ML GT (20:51)
[2025-05-17] VITALS (13 sets, daily range): BP systolic 97–118; BP diastolic 60–72; PULSE 55–86; RESP 16–18; TEMP 36.1–36.7; O2SAT 95–99
[2025-05-17] MEDS: MIDODRINE 10 MG TABLET GT ×2 (05:14→14:06)
[2025-05-17] MEDS: PROPRANOLOL 20 MG TABLET GT ×2 (05:15→21:00)
[2025-05-17] MEDS: FISH OIL 1200 MG GT (08:40)
[2025-05-17] MEDS: DEXLANSOPRAZOLE 30 MG GT (08:40)
[2025-05-17] MEDS: DEX/HYPRO/GLY ARTIFICAL TEARS 225 DROP/15 ML BTL BOTH EYES ×2 (08:40→20:55)
[2025-05-17] MEDS: MULTIVITAMIN W MINERALS 1 EACH TABLET GT (08:43)
[2025-05-17] MEDS: SENNOSIDES 8.6 MG TABLET GT ×2 (08:44→20:55)
--- NOTE | 2025-05-17 19:48 | ESPR_ITS ---
Progress Note - SubAcute DIAGNOSIS (1) Traumatic brain injury: Status: Chronic (2) Anoxic brain damage, not elsewhere classified: Status: Chronic (3) Tracheostomy status: Status: Chronic (4) Gastrostomy status: Status: Chronic (5) Chronic respiratory failure: Status: Chronic SUBJECTIVE Fever:: none GI:: none Shortness of Breath:: none GI:: no complaints Pain:: none OBJECTIVE Most recent vital signs: Last Vital Signs Temp 96.9 F 05/17/25 17:40 Pulse 62 05/17/25 17:40 Resp 16 05/17/25 17:40 BP 114/70 05/17/25 17:40 Pulse Ox 95 05/17/25 17:40 O2 Del Method Blow-by 05/17/25 17:40 O2 Flow Rate 10 05/17/25 09:00 FiO2 35 05/17/25 09:00 Neurological:: awake Speech:: none Answers questions:: sometimes (Sometimes opens eyes to command.) Respiratory:: lungs clear Cardiovascular: RRR Abdomen: soft and nontender Extremities:: deformities Decubitus:: none Tracheostomy:: to blow by Feeding per:: G tube Complaints:: none ASSESSMENT & PLAN Assessment: Stable status. No improvement in cognitive function. Pt was transferred to Acute care on 12-28-24 for fever and w/u revealed Enterococcus UTI and Pneumonia with Proteus and providencia and responded to antibiotics and was received back in [facility] on 01-01-25 on Levaquin and Augmentin for completion of course for a week. Diagnosis and treatment reviewed. Prognosis remains poor. No evident pain issues.Comfort objective being achieved.VSS. Family representatives kept updated. Some observation by family member about hiccups. will monitor and if they return then a trial with medica tios appropriately will be offered. No more hiccups reported to me by nursing staff. stable VSS. Tolerating tube feeding. No pain issues. stable status Plan: Current treatment continued as ongoing
[2025-05-18] VITALS (10 sets, daily range): BP systolic 100–121; BP diastolic 64–84; PULSE 61–72; RESP 18–20; TEMP 36.2–36.4; O2SAT 98–99
[2025-05-18] MEDS: PROPRANOLOL 20 MG TABLET GT ×3 (05:20→21:05)
[2025-05-18] MEDS: DEX/HYPRO/GLY ARTIFICAL TEARS 225 DROP/15 ML BTL BOTH EYES ×2 (09:30→20:40)
[2025-05-18] MEDS: LOSARTAN 25 MG TABLET GT (09:31)
[2025-05-18] MEDS: FISH OIL 1200 MG GT (09:31)
[2025-05-18] MEDS: DEXLANSOPRAZOLE 30 MG GT (09:31)
[2025-05-18] MEDS: SENNOSIDES 8.6 MG TABLET GT ×2 (09:32→20:40)
[2025-05-18] MEDS: MULTIVITAMIN W MINERALS 1 EACH TABLET GT (09:32)
[2025-05-18] MEDS: MIDODRINE 10 MG TABLET GT (13:00)
[2025-05-19] VITALS (10 sets, daily range): BP systolic 101–146; BP diastolic 63–84; PULSE 59–72; RESP 18–21; TEMP 36.4–36.7; O2SAT 97–99
[2025-05-19] MEDS: PROPRANOLOL 20 MG TABLET GT ×3 (05:45→21:16)
[2025-05-19] MEDS: DEX/HYPRO/GLY ARTIFICAL TEARS 225 DROP/15 ML BTL BOTH EYES ×2 (08:51→21:15)
[2025-05-19] MEDS: DEXLANSOPRAZOLE 30 MG GT (08:52)
[2025-05-19] MEDS: MULTIVITAMIN W MINERALS 1 EACH TABLET GT (08:53)
[2025-05-19] MEDS: FISH OIL 1200 MG GT (08:53)
[2025-05-19] MEDS: SENNOSIDES 8.6 MG TABLET GT ×2 (08:54→21:16)
[2025-05-19] MEDS: MIDODRINE 10 MG TABLET GT ×2 (13:27→21:16)
[2025-05-20] VITALS (13 sets, daily range): BP systolic 98–117; BP diastolic 58–82; PULSE 53–87; RESP 17–20; TEMP 36.4–36.6; O2SAT 95–97
[2025-05-20] MEDS: MIDODRINE 10 MG TABLET GT ×3 (05:17→21:09)
[2025-05-20] MEDS: PROPRANOLOL 20 MG TABLET GT ×2 (05:18→14:24)
[2025-05-20] MEDS: FISH OIL 1200 MG GT (09:18)
[2025-05-20] MEDS: SENNOSIDES 8.6 MG TABLET GT ×2 (09:18→21:08)
[2025-05-20] MEDS: DEXLANSOPRAZOLE 30 MG GT (09:18)
[2025-05-20] MEDS: MULTIVITAMIN W MINERALS 1 EACH TABLET GT (09:18)
[2025-05-20] MEDS: DEX/HYPRO/GLY ARTIFICAL TEARS 225 DROP/15 ML BTL BOTH EYES ×2 (09:18→21:09)
[2025-05-20] MEDS: LOSARTAN 25 MG TABLET GT (09:19)
[2025-05-20] MEDS: MAGNESIUM HYDROXIDE 30 ML ORAL SUSP ML GT (21:11)
[2025-05-21] VITALS (13 sets, daily range): BP systolic 101–127; BP diastolic 62–78; PULSE 57–78; RESP 16–22; TEMP 36.2–36.8; O2SAT 95–99
[2025-05-21] MEDS: MIDODRINE 10 MG TABLET GT (05:23)
[2025-05-21] MEDS: DEX/HYPRO/GLY ARTIFICAL TEARS 225 DROP/15 ML BTL BOTH EYES ×2 (09:23→21:10)
[2025-05-21] MEDS: DEXLANSOPRAZOLE 30 MG GT (09:23)
[2025-05-21] MEDS: FISH OIL 1200 MG GT (09:24)
[2025-05-21] MEDS: SENNOSIDES 8.6 MG TABLET GT ×2 (09:25→21:10)
[2025-05-21] MEDS: MULTIVITAMIN W MINERALS 1 EACH TABLET GT (09:25)
--- NOTE | 2025-05-21 11:16 | PC.SS ---
Resident remains on blow by with trach in place and GT for medication and nutrition. Resident remains represented by his daughter as he is unable to make needs known or make decision for self. Resident does not have POA in place, RP is aware this service is provided in facility but resident is unable to participate. Resident will remain in current care and will continue to have all subacute care needs met by staff. This SSD will make daily contact with resident and will offer support as needed.
[2025-05-21] MEDS: PROPRANOLOL 20 MG TABLET GT ×2 (13:42→21:10)
[2025-05-21] MEDS: BISACODYL 10 MG SUPP.RECT PR (15:56)
--- NOTE | 2025-05-21 18:18 | ESPR_ITS ---
Progress Note - SubAcute DIAGNOSIS (1) Traumatic brain injury: Status: Chronic (2) Anoxic brain damage, not elsewhere classified: Status: Chronic (3) Tracheostomy status: Status: Chronic (4) Gastrostomy status: Status: Chronic (5) Chronic respiratory failure: Status: Chronic SUBJECTIVE Fever:: none GI:: none Shortness of Breath:: none GI:: no complaints Pain:: none OBJECTIVE Most recent vital signs: Last Vital Signs Temp 98.3 F 05/21/25 17:25 Pulse 64 05/21/25 17:25 Resp 16 05/21/25 17:25 BP 116/74 05/21/25 17:25 Pulse Ox 97 05/21/25 17:25 O2 Del Method Blow-by 05/20/25 16:55 O2 Flow Rate 10 05/21/25 05:26 FiO2 35 05/21/25 05:26 Neurological:: awake Speech:: none Answers questions:: sometimes (Sometimes opens eyes to command.) Respiratory:: lungs clear Cardiovascular: RRR Abdomen: soft and nontender Extremities:: deformities Decubitus:: none Tracheostomy:: to blow by Feeding per:: G tube Complaints:: none ASSESSMENT & PLAN Assessment: Stable status. No improvement in cognitive function. Pt was transferred to Acute care on 12-28-24 for fever and w/u revealed Enterococcus UTI and Pneumonia with Proteus and providencia and responded to antibiotics and was received back in [facility] on 01-01-25 on Levaquin and Augmentin for completion of course for a week. Diagnosis and treatment reviewed. Prognosis remains poor. No evident pain issues.Comfort objective being achieved.VSS. Family representatives kept updated. Some observation by family member about hiccups. will monitor and if they return then a trial with medica tios appropriately will be offered. No more hiccups reported to me by nursing staff. stable VSS. Tolerating tube feeding. No pain issues. stable status Plan: Current treatment continued as ongoing
[2025-05-22] VITALS (11 sets, daily range): BP systolic 100–127; BP diastolic 62–78; PULSE 56–70; RESP 17–20; TEMP 36.1–36.4; O2SAT 92–98
[2025-05-22] MEDS: PROPRANOLOL 20 MG TABLET GT ×3 (05:50→21:11)
[2025-05-22] MEDS: FISH OIL 1200 MG GT (08:19)
[2025-05-22] MEDS: DEX/HYPRO/GLY ARTIFICAL TEARS 225 DROP/15 ML BTL BOTH EYES ×2 (08:19→21:09)
[2025-05-22] MEDS: DEXLANSOPRAZOLE 30 MG GT (08:19)
[2025-05-22] MEDS: SENNOSIDES 8.6 MG TABLET GT ×2 (08:21→21:09)
[2025-05-22] MEDS: MULTIVITAMIN W MINERALS 1 EACH TABLET GT (08:21)
[2025-05-22] MEDS: MIDODRINE 10 MG TABLET GT (14:08)
[2025-05-23] VITALS (12 sets, daily range): BP systolic 91–113; BP diastolic 60–75; PULSE 57–80; RESP 17–21; TEMP 36.1–36.4; O2SAT 94–97
[2025-05-23] MEDS: MIDODRINE 10 MG TABLET GT ×3 (05:28→21:09)
[2025-05-23] MEDS: DEXLANSOPRAZOLE 30 MG GT (08:52)
[2025-05-23] MEDS: DEX/HYPRO/GLY ARTIFICAL TEARS 225 DROP/15 ML BTL BOTH EYES ×2 (08:52→20:44)
[2025-05-23] MEDS: LOSARTAN 25 MG TABLET GT (08:53)
[2025-05-23] MEDS: FISH OIL 1200 MG GT (08:53)
[2025-05-23] MEDS: MULTIVITAMIN W MINERALS 1 EACH TABLET GT (08:53)
[2025-05-23] MEDS: SENNOSIDES 8.6 MG TABLET GT ×2 (08:54→20:44)
[2025-05-23] MEDS: PROPRANOLOL 20 MG TABLET GT (21:09)
[2025-05-24] VITALS (9 sets, daily range): BP systolic 102–143; BP diastolic 66–79; PULSE 60–80; RESP 17–18; TEMP 36.3–36.7; O2SAT 95–97
[2025-05-24] MEDS: PROPRANOLOL 20 MG TABLET GT ×3 (05:11→22:00)
[2025-05-24] MEDS: DEX/HYPRO/GLY ARTIFICAL TEARS 225 DROP/15 ML BTL BOTH EYES ×2 (08:56→20:41)
[2025-05-24] MEDS: FISH OIL 1200 MG GT (08:57)
[2025-05-24] MEDS: DEXLANSOPRAZOLE 30 MG GT (08:57)
[2025-05-24] MEDS: LOSARTAN 25 MG TABLET GT (08:57)
[2025-05-24] MEDS: SENNOSIDES 8.6 MG TABLET GT ×2 (08:58→20:41)
[2025-05-24] MEDS: MULTIVITAMIN W MINERALS 1 EACH TABLET GT (08:58)
[2025-05-24] MEDS: MIDODRINE 10 MG TABLET GT (13:58)
[2025-05-24] MEDS: MAGNESIUM HYDROXIDE 30 ML ORAL SUSP ML GT (23:13)
[2025-05-25] VITALS (12 sets, daily range): BP systolic 100–131; BP diastolic 54–82; PULSE 55–80; RESP 17–18; TEMP 36.1–36.6; O2SAT 98
[2025-05-25] MEDS: PROPRANOLOL 20 MG TABLET GT ×2 (05:30→21:03)
[2025-05-25] MEDS: DEX/HYPRO/GLY ARTIFICAL TEARS 225 DROP/15 ML BTL BOTH EYES ×2 (08:35→20:54)
[2025-05-25] MEDS: DEXLANSOPRAZOLE 30 MG GT (08:35)
[2025-05-25] MEDS: FISH OIL 1200 MG GT (08:35)
[2025-05-25] MEDS: MULTIVITAMIN W MINERALS 1 EACH TABLET GT (08:36)
[2025-05-25] MEDS: SENNOSIDES 8.6 MG TABLET GT ×2 (08:36→20:54)
[2025-05-25] MEDS: BISACODYL 10 MG SUPP.RECT PR (11:09)
[2025-05-25] MEDS: MIDODRINE 10 MG TABLET GT (21:02)
--- NOTE | 2025-05-25 21:28 | PD.SAPROG ---
Progress Note - SubAcute DIAGNOSIS (1) Traumatic brain injury: Status: Chronic (2) Anoxic brain damage, not elsewhere classified: Status: Chronic (3) Tracheostomy status: Status: Chronic (4) Gastrostomy status: Status: Chronic (5) Chronic respiratory failure: Status: Chronic SUBJECTIVE Fever:: none GI:: none Shortness of Breath:: none GI:: no complaints Pain:: none OBJECTIVE Most recent vital signs: Last Vital Signs Temp 97.9 F 05/25/25 17:26 Pulse 65 05/25/25 21:03 Resp 18 05/25/25 19:10 BP 105/68 05/25/25 21:03 Pulse Ox 98 05/25/25 19:10 O2 Del Method Blow-by 05/25/25 17:26 O2 Flow Rate 10 05/25/25 19:10 FiO2 35 05/25/25 19:10 Neurological:: awake Speech:: none Answers questions:: sometimes (Sometimes opens eyes to command.) Respiratory:: lungs clear Cardiovascular: RRR Abdomen: soft and nontender Extremities:: deformities Decubitus:: none Tracheostomy:: to blow by Feeding per:: G tube Complaints:: none ASSESSMENT & PLAN Assessment: Stable status. No improvement in cognitive function. Pt was transferred to Acute care on 12-28-24 for fever and w/u revealed Enterococcus UTI and Pneumonia with Proteus and providencia and responded to antibiotics and was received back in [facility] on 01-01-25 on Levaquin and Augmentin for completion of course for a week. Diagnosis and treatment reviewed. Prognosis remains poor. No evident pain issues.Comfort objective being achieved.VSS. Family representatives kept updated. Some observation by family member about hiccups. will monitor and if they return then a trial with medicatios appropriately will be offered. No more hiccups reported to me by nursing staff. stable VSS. Tolerating tube feeding. No pain issues. stable status Plan: Current treatment continued as ongoing
[2025-05-26] VITALS (13 sets, daily range): BP systolic 97–114; BP diastolic 61–78; PULSE 52–72; RESP 16–18; TEMP 36.4–36.6; O2SAT 95–98
[2025-05-26] MEDS: MIDODRINE 10 MG TABLET GT ×2 (05:37→17:00)
[2025-05-26] MEDS: PROPRANOLOL 20 MG TABLET GT ×2 (05:37→21:10)
[2025-05-26] MEDS: DEXLANSOPRAZOLE 30 MG GT (08:41)
[2025-05-26] MEDS: DEX/HYPRO/GLY ARTIFICAL TEARS 225 DROP/15 ML BTL BOTH EYES ×2 (08:41→21:09)
[2025-05-26] MEDS: FISH OIL 1200 MG GT (08:41)
[2025-05-26] MEDS: LOSARTAN 25 MG TABLET GT (08:42)
[2025-05-26] MEDS: MULTIVITAMIN W MINERALS 1 EACH TABLET GT (08:43)
[2025-05-26] MEDS: SENNOSIDES 8.6 MG TABLET GT ×2 (08:43→21:09)
[2025-05-27] VITALS (12 sets, daily range): BP systolic 98–135; BP diastolic 58–78; PULSE 57–81; RESP 16–20; TEMP 36.6–36.9; O2SAT 92–98
[2025-05-27] MEDS: MIDODRINE 10 MG TABLET GT (05:25)
[2025-05-27] MEDS: DEXLANSOPRAZOLE 30 MG GT (08:42)
[2025-05-27] MEDS: FISH OIL 1200 MG GT (08:42)
[2025-05-27] MEDS: DEX/HYPRO/GLY ARTIFICAL TEARS 225 DROP/15 ML BTL BOTH EYES ×2 (08:42→21:00)
[2025-05-27] MEDS: MULTIVITAMIN W MINERALS 1 EACH TABLET GT (08:43)
[2025-05-27] MEDS: SENNOSIDES 8.6 MG TABLET GT ×2 (08:44→21:00)
[2025-05-27] MEDS: PROPRANOLOL 20 MG TABLET GT ×2 (13:26→21:00)
[2025-05-28] VITALS (11 sets, daily range): BP systolic 97–111; BP diastolic 64–77; PULSE 63–79; RESP 16–22; TEMP 36.4–36.6; O2SAT 95–99
[2025-05-28] MEDS: PROPRANOLOL 20 MG TABLET GT ×2 (05:16→21:04)
[2025-05-28] MEDS: DEXLANSOPRAZOLE 30 MG GT (08:40)
[2025-05-28] MEDS: FISH OIL 1200 MG GT (08:40)
[2025-05-28] MEDS: DEX/HYPRO/GLY ARTIFICAL TEARS 225 DROP/15 ML BTL BOTH EYES ×2 (08:40→20:57)
[2025-05-28] MEDS: SENNOSIDES 8.6 MG TABLET GT ×2 (08:41→20:57)
[2025-05-28] MEDS: MULTIVITAMIN W MINERALS 1 EACH TABLET GT (08:41)
[2025-05-28] MEDS: BISACODYL 10 MG SUPP.RECT PR (10:55)
[2025-05-28] MEDS: MIDODRINE 10 MG TABLET GT (13:00)
--- NOTE | 2025-05-28 15:58 | PC.SS ---
Resident remains on blow by with trach in place and GT for medication and nutrition. He is unable to make needs known, his daughter Arlene Hinds is his healthcare sales representative. He does not have POA in place, Arlene is aware this service is provided in house but is unable to participate due to cognitive impairment and absence of speech. Resident will remain in current care as he has no changes in care or condition, he will continue to have all subacute care needs met by staff. This SSD will continue to make daily contact with resident and will monitor for changes in mood and behavior.
[2025-05-29] VITALS (10 sets, daily range): BP systolic 100–135; BP diastolic 63–73; PULSE 57–101; RESP 18–26; TEMP 36.5–39.8; O2SAT 95–99
[2025-05-29] MEDS: MIDODRINE 10 MG TABLET GT ×2 (05:20→14:51)
[2025-05-29] MEDS: PROPRANOLOL 20 MG TABLET GT (05:21)
[2025-05-29] MEDS: DEX/HYPRO/GLY ARTIFICAL TEARS 225 DROP/15 ML BTL BOTH EYES (09:27)
[2025-05-29] MEDS: DEXLANSOPRAZOLE 30 MG GT (09:28)
[2025-05-29] MEDS: LOSARTAN 25 MG TABLET GT (09:28)
[2025-05-29] MEDS: MULTIVITAMIN W MINERALS 1 EACH TABLET GT (09:30)
[2025-05-29] MEDS: SENNOSIDES 8.6 MG TABLET GT (09:31)
[2025-05-29] MEDS: FISH OIL 1200 MG GT (09:31)
[2025-05-29 18:30] LABS: Basophils # (Auto) 0.1 Thou/mm3 (0.0-0.2); Basophils % (Auto) 0 % (0-2.5); Eosinophils # (Auto) 0.0 Thou/mm3 (0.0-0.5); Eosinophils % (Auto) 0 % (0-10); Hematocrit 46.8 % (41.0-53.0); Hemoglobin 16.2 g/dL (13.5-16.0); Immature Granulocytes Auto 0.16 Thou/mm3 (0.00-0.00); Lymphocytes # (Auto) 1.2 Thou/mm3 (1.0-4.8); Lymphocytes % (Auto) 4 % (10-50); Mean Corpuscular HGB Conc 34.6 g/dl (31.0-37.0); Mean Corpuscular Hemoglobin 32.6 pg (25.0-35.0); Mean Corpuscular Volume 94 fL (80-100); Monocytes # (Auto) 1.2 Thou/mm3 (0.0-0.8); Monocytes % (Auto) 4 % (0-12); Neutrophils # (Auto) 25.2 Thou/mm3 (1.8-7.7); Neutrophils % (Auto) 91 % (37-80); Nucleated Red Blood Cell # 0.00 Thou/mm3 (0.00-0.00); Nucleated Red Blood Cell % 0 /100 WBC (0); Platelet Count 214 Thou/mm3 (140-440); RDW Standard Deviation 42.2 fL (35.1-43.9); Red Blood Count 4.97 Miln/mm3 (4.50-5.90); White Blood Count 27.8 Thou/mm3 (3.8-10.6)
[2025-05-29 18:44] LABS: Procalcitonin 0.11 ng/ml (0.0-0.49)
--- NOTE | 2025-05-29 18:56 | PC.NURSE ---
MILTON Pradhan reported resident temperature 103.7. Initiated cooling measures x1hour. Re-assess resident's temp at 1830. Fever down to 103.1. Tylenol given at around 1840. Initiated fever protocol orders. Hand off report given to Marlene ROSE night nurse.
[2025-05-29 19:57] LABS: Collection Type, Urine Catheter; Squamous Epithelial Cell,Urine 0 /hpf (0-5)
[2025-05-29 20:04] LABS: Amorphous Crystals,Urine Present (Absent); Bacteria,Urine Rare; Bilirubin,Urine Negative (Negative); Blood,Urine 2+ (Negative); Budding Yeast,Urine Present; Clarity,Urine Turbid (Clear/Hazy); Color,Urine Yellow (Lt Yel-Yel); Glucose, Urine Negative (Negative); Hyaline Casts,Urine < 1 /hpf (0-1); Ketones,Urine Negative (Negative); Leukocyte Esterase,Urine Positive (Negative); Nitrite,Urine Negative (Negative); PH,Urine 7.5 (5.0-7.0); Protein,Urine Trace (Neg - Trace); RBC,Urine 120 /hpf (0-3); Specific Gravity,Urine 1.021 (1.001-1.035); Urobilinogen,Urine 3.0 mg/dL (0.0-1.0); WBC,Urine 29 /hpf (0-5)
[2025-05-29 20:09] LABS: Culture Indicated,Urine Yes
[2025-05-29 20:21] LABS: COVID-19 Antigen (In-House) Negative (Negative)
[2025-05-29 20:22] LABS: Influenza A Ag Negative; Influenza B Ag Negative
--- NOTE | 2025-05-29 20:31 | PC.NURSE ---
Received in report that resident had rectal temp of 103.7 at 1730, cooling measures initiated, rechecked rectal temp at 1830: 103.5, Tylenol was given at this time per day shift nurse and temp protocol was started. Sputum, urine, Covid and Flu samples obtained and sent to lab. Rechecked rectal temp at 1930: 103.0, BP: 110/71, HR: 127, RR: 32, notified Dr Ham with new order to send resident to ER for further evaluation. Called daughter Arlene to update resident's status and transfer to ER, all questions and concerns answered, resident taken to ER at 1999 via bed to room 1 accompanied by TECHNICAL SERVICE SPECIALIST, PRODUCTION LABORER and RT.
--- NOTE | 2025-05-29 22:02 | PD.SAPROG ---
Progress Note - SubAcute DIAGNOSIS (1) Traumatic brain injury: Status: Chronic (2) Anoxic brain damage, not elsewhere classified: Status: Chronic (3) Tracheostomy status: Status: Chronic (4) Gastrostomy status: Status: Chronic (5) Chronic respiratory failure: Status: Chronic SUBJECTIVE Fever:: worsening (103 F.) GI:: none Shortness of Breath:: none GI:: no complaints Pain:: none OBJECTIVE Most recent vital signs: Last Vital Signs Temp 103.7 F H 05/29/25 18:00 Pulse 101 H 05/29/25 18:00 Resp 26 H 05/29/25 18:00 BP 135/73 H 05/29/25 18:00 Pulse Ox 98 05/29/25 18:00 O2 Del Method Blow-by 05/29/25 06:00 O2 Flow Rate 10 05/29/25 09:00 FiO2 35 05/29/25 09:00 Neurological:: awake Speech:: none Answers questions:: sometimes (Sometimes opens eyes to command.) Respiratory:: lungs clear Cardiovascular: RRR Abdomen: soft and nontender Extremities:: deformities Decubitus:: none Tracheostomy:: to blow by Feeding per:: G tube Complaints:: none ASSESSMENT & PLAN Assessment: Stable status. No improvement in cognitive function. Pt was transferred to Acute care on 12-28-24 for fever and w/u revealed Enterococcus UTI and Pneumonia with Proteus and providencia and responded to antibiotics and was received back in [facility] on 01-01-25 on Levaquin and Augmentin for completion of course for a week. Diagnosis and treatment reviewed. Prognosis remains poor. No evident pain issues.Comfort objective being achieved.VSS. Family representatives kept updated. Some observation by family member about hiccups. will monitor and if they return then a trial with medicatios appropriately will be offered. No more hiccups reported to me by nursing staff. stable VSS. Tolerating tube feeding. No pain issues. 05-29-25 Pt developed high grade fever that did not respond to anti pyretic and cooling measures and work up initiated and pt transferred to ER for evaluation Plan: Current treatment continued as ongoing
[2025-05-30 08:41] VITALS: PULSE 68; RESP 19; O2SAT 97; O2SAT 98
[2025-06-02 16:00] VITALS: BP 128/80; PULSE 78; RESP 19; TEMP 36.9; O2SAT 95
--- NOTE | 2025-06-02 16:31 | PC.NURSE ---
Addendum entered and electronically signed by Vickie Wheeler RN 06/02/25 19:07: Resident came back from acute care on BB 28% at 6L. As per RT, resident has been on 28% in acute care and tolerated well. Original Note: Resident came back from acute care at 15:53 via bed with RT, RN, LETTUCE TRIMMER. No s/s of respiratory distress. Resident noted with redness to GT site, 1+ edema to right forearm/elbow. Black, dry scab to left big toe. No s/s of pain or discomfort noted. With gtube in place, with positive placement. Placed resident comfortably in bed.
--- NOTE | 2025-06-02 16:52 | PC.NURSE ---
Resident returned to subacute care from acute care via bed. resident remains on BB mist. awake signs of discomfort noted at this time. received report from Damaris ROSE. Order to continue ABT therapy with Rocephin 2gm IV for PNA x4 days. Carried out new order. Resumed all previous orders as per MD. notified MD and family.Will continue to monitor. last BM 05/31/25 as reported by Damaris ROSE, last voided at 1400. Will continue to monitor.
[2025-06-02 19:34] VITALS: PULSE 69; RESP 118; RESP 18; O2SAT 100
[2025-06-02 21:16] VITALS: BP 130/82; PULSE 89
[2025-06-02] MEDS: SENNOSIDES 8.6 MG TABLET GT (21:16)
[2025-06-02] MEDS: PROPRANOLOL 20 MG TABLET GT (21:16)
[2025-06-02] MEDS: DEX/HYPRO/GLY ARTIFICAL TEARS 225 DROP/15 ML BTL BOTH EYES (21:17)
[2025-06-02] MEDS: MAGNESIUM HYDROXIDE 30 ML ORAL SUSP ML GT (22:40)
--- NOTE | 2025-06-02 22:57 | ESPR_ITS ---
Progress Note - SubAcute DIAGNOSIS (1) Traumatic brain injury: Status: Chronic (2) Anoxic brain damage, not elsewhere classified: Status: Chronic (3) Tracheostomy status: Status: Chronic (4) Gastrostomy status: Status: Chronic (5) Chronic respiratory failure: Status: Chronic SUBJECTIVE Fever:: worsening (103 F.) GI:: none Shortness of Breath:: none GI:: no complaints Pain:: none OBJECTIVE Most recent vital signs: Last Vital Signs Temp 98.4 F 06/02/25 16:00 Pulse 89 06/02/25 21:16 Resp 118 H 06/02/25 19:34 BP 130/82 06/02/25 21:16 Pulse Ox 100 06/02/25 19:34 O2 Del Method Blow-by 06/02/25 16:00 O2 Flow Rate 6 06/02/25 19:34 FiO2 28 06/02/25 19:34 Neurological:: awake Speech:: none Answers questions:: sometimes (Sometimes opens eyes to command.) Respiratory:: lungs clear Cardiovascular: RRR Abdomen: soft and nontender Extremities:: deformities Decubitus:: none Tracheostomy:: to blow by Feeding per:: G tube Complaints:: none ASSESSMENT & PLAN Assessment: Stable status. No improvement in cognitive function. Pt was transferred to Acute care on 12-28-24 for fever and w/u revealed Enterococcus UTI and Pneumonia with Proteus and providencia and responded to antibiotics and was received back in [facility] on 01-01-25 on Levaquin and Augmentin for completion of course for a week. Diagnosis and treatment reviewed. Prognosis remains poor. No evident pain issues.Comfort objective being achieved.VSS. Family representatives kept updated. Some observation by family member about hiccups. will monitor and if they return then a trial with medicatios appropriately will be offered. No more hiccups reported to me by nursing staff. stable VSS. Tolerating tube feeding. No pain issues. 05-29-25 Pt developed high grade fever that did not respond to anti pyretic and cooling measures and work up initiated and pt transferred to ER for evaluatio withn 06-02-25 [facility] acute [facility] and E.Coli with resultant septic shock but responded well to antibiotics and continued on Rocephin 2 gms daily IV for another 4 days. Plan: Current treatment continued as ongoing
[2025-06-03] VITALS (12 sets, daily range): BP systolic 103–128; BP diastolic 65–84; PULSE 64–96; RESP 18–24; TEMP 36.5–36.7; O2SAT 97–98
--- NOTE | 2025-06-03 00:05 | PC.RT ---
Mucomyst order not continued when pt arrived down stairs from admit on the floors. Rn/GROUNDS MANAGER aware.
[2025-06-03] MEDS: MIDODRINE 10 MG TABLET GT (05:29)
[2025-06-03] MEDS: PROPRANOLOL 20 MG TABLET GT ×3 (05:30→21:32)
[2025-06-03] MEDS: LOSARTAN 25 MG TABLET GT (08:40)
[2025-06-03] MEDS: DEXLANSOPRAZOLE 30 MG GT (08:40)
[2025-06-03] MEDS: DEX/HYPRO/GLY ARTIFICAL TEARS 225 DROP/15 ML BTL BOTH EYES ×2 (08:40→21:33)
[2025-06-03] MEDS: FISH OIL 1200 MG GT (08:40)
[2025-06-03] MEDS: SENNOSIDES 8.6 MG TABLET GT ×2 (08:41→21:33)
[2025-06-03] MEDS: MULTIVITAMIN W MINERALS 1 EACH TABLET GT (08:41)
[2025-06-03] MEDS: SODIUM CHLORIDE IV (09:00)
[2025-06-03] MEDS: [UNRECOGNIZED DRUG - OTHER] IV (09:00)
[2025-06-03] MEDS: CEFTRIAXONE IV (09:00)
--- NOTE | 2025-06-03 09:36 | PC.SS ---
This SSD received email from TANA Hinds who has asked for assistance with a consultation with Hospice. Arlene would like to speak to hospice about moving resident home on comfort care. Arlene feels resident has been sick more often and has had conversations with MD from inpatient side regarding comfort care. This SSD replied to Arlene awaiting for reply to confirm this SSD setting up a call with hospice before getting order for bedside consultation. This SSD notified charge nurse, shelter case manager.
--- NOTE | 2025-06-03 10:07 | PC.SS ---
Resident remains in current care on blow by with trach in place and GT for medication and nutrition. Resident is unable to make needs known, his daughter Arlene Hinds is his decision maker. Resident does not have POA in place nor is he able to participate in this process. Resident will continue to have all subacute care needs met by staff and will continue to have daily room visits.
--- NOTE | 2025-06-03 16:22 | PC.SS ---
This SSD spoke with resident RP Arlene Hinds, confirmed she did want to speak with Hospice to get information before she makes her decision. This SSD spoke with Marlene at [facility] who said would call Arlene to answer any questions she may have. This SSD to follow up with Arlene and Marlene and assist with any transition.
[2025-06-04] VITALS (13 sets, daily range): BP systolic 106–128; BP diastolic 62–81; PULSE 59–82; RESP 16–20; TEMP 36.3–36.9; O2SAT 93–98
[2025-06-04] MEDS: PROPRANOLOL 20 MG TABLET GT ×3 (05:15→21:15)
[2025-06-04] MEDS: DEX/HYPRO/GLY ARTIFICAL TEARS 225 DROP/15 ML BTL BOTH EYES ×2 (08:59→21:16)
[2025-06-04] MEDS: LOSARTAN 25 MG TABLET GT (09:00)
[2025-06-04] MEDS: FISH OIL 1200 MG GT (09:00)
[2025-06-04] MEDS: DEXLANSOPRAZOLE 30 MG GT (09:00)
[2025-06-04] MEDS: MULTIVITAMIN W MINERALS 1 EACH TABLET GT (09:01)
[2025-06-04] MEDS: SENNOSIDES 8.6 MG TABLET GT ×2 (09:02→21:16)
[2025-06-04] MEDS: MIDODRINE 10 MG TABLET GT (21:16)
[2025-06-05] VITALS (11 sets, daily range): BP systolic 109–137; BP diastolic 57–75; PULSE 58–81; RESP 16–20; TEMP 35.9–36.8; O2SAT 96–98
[2025-06-05] MEDS: PROPRANOLOL 20 MG TABLET GT ×3 (05:39→21:24)
[2025-06-05] MEDS: MIDODRINE 10 MG TABLET GT (05:39)
--- NOTE | 2025-06-05 05:58 | PC.NURSE ---
Resident is currently on Rocephin 2gm IV daily for PNA, no adverse reaction or side effects noted, afebrile, water given via Gtube, respirations even and unlabored, productive cough noted, resident in room resting, call light within reach, HOB elevated, no s/s of distress noted at this time.
[2025-06-05] MEDS: DEXLANSOPRAZOLE 30 MG GT (09:33)
[2025-06-05] MEDS: LOSARTAN 25 MG TABLET GT (09:34)
[2025-06-05] MEDS: FISH OIL 1200 MG GT (09:34)
[2025-06-05] MEDS: DEX/HYPRO/GLY ARTIFICAL TEARS 225 DROP/15 ML BTL BOTH EYES ×2 (09:34→21:23)
[2025-06-05] MEDS: SENNOSIDES 8.6 MG TABLET GT ×2 (09:35→21:23)
[2025-06-05] MEDS: MULTIVITAMIN W MINERALS 1 EACH TABLET GT (09:35)
[2025-06-06] VITALS (12 sets, daily range): BP systolic 94–114; BP diastolic 58–78; PULSE 57–79; RESP 16–22; TEMP 36.2–36.6; O2SAT 97–99
[2025-06-06] MEDS: MIDODRINE 10 MG TABLET GT ×2 (05:16→21:38)
[2025-06-06] MEDS: PROPRANOLOL 20 MG TABLET GT ×2 (05:16→14:17)
[2025-06-06] MEDS: SODIUM CHLORIDE IV (09:01)
[2025-06-06] MEDS: CEFTRIAXONE IV (09:01)
[2025-06-06] MEDS: [UNRECOGNIZED DRUG - OTHER] IV (09:01)
[2025-06-06] MEDS: DEX/HYPRO/GLY ARTIFICAL TEARS 225 DROP/15 ML BTL BOTH EYES ×2 (09:06→20:21)
[2025-06-06] MEDS: LOSARTAN 25 MG TABLET GT (09:07)
[2025-06-06] MEDS: DEXLANSOPRAZOLE 30 MG GT (09:07)
[2025-06-06] MEDS: FISH OIL 1200 MG GT (09:08)
[2025-06-06] MEDS: SENNOSIDES 8.6 MG TABLET GT ×2 (09:10→20:23)
[2025-06-06] MEDS: MULTIVITAMIN W MINERALS 1 EACH TABLET GT (09:10)
--- NOTE | 2025-06-06 18:20 | PC.NURSE ---
Resident completed last dose of Rocephin without having any side effect. Tolerated well.
--- NOTE | 2025-06-06 18:26 | ESPR_ITS ---
Progress Note - SubAcute DIAGNOSIS (1) Traumatic brain injury: Status: Chronic (2) Anoxic brain damage, not elsewhere classified: Status: Chronic (3) Tracheostomy status: Status: Chronic (4) Gastrostomy status: Status: Chronic (5) Chronic respiratory failure: Status: Chronic SUBJECTIVE Fever:: worsening (103 F.) GI:: none Shortness of Breath:: none GI:: no complaints Pain:: none OBJECTIVE Most recent vital signs: Last Vital Signs Temp 98 F 06/06/25 18:00 Pulse 57 L 06/06/25 18:00 Resp 22 H 06/06/25 18:00 BP 108/67 06/06/25 18:00 Pulse Ox 98 06/06/25 18:00 O2 Del Method Blow-by 06/06/25 18:00 O2 Flow Rate 6 06/06/25 06:46 FiO2 28 06/06/25 06:46 Neurological:: awake Speech:: none Answers questions:: sometimes (Sometimes opens eyes to command.) Respiratory:: lungs clear Cardiovascular: RRR Abdomen: soft and nontender Extremities:: deformities Decubitus:: none Tracheostomy:: to blow by Feeding per:: G tube Complaints:: none ASSESSMENT & PLAN Assessment: Stable status. No improvement in cognitive function. Pt was transferred to Acute care on 12-28-24 for fever and w/u revealed Enterococcus UTI and Pneumonia with Proteus and providencia and responded to antibiotics and was received back in [facility] on 01-01-25 on Levaquin and Augmentin for completion of course for a week. Diagnosis and treatment reviewed. Prognosis remains poor. No evident pain issues.Comfort objective being achieved.VSS. Family representatives kept updated. Some observation by family member about hiccups. will monitor and if they return then a trial with medicatios appropriately will be offered. No more hiccups reported to me by nursing staff. stable VSS. Tolerating tube feeding. No pain issues. 05-29-25 Pt developed high grade fever that did not respond to anti pyretic and cooling measures and work up initiated and pt transferred to ER for evaluatio withn 06-02-25 Pt received back from acute Hospital after treatment for Hospital aquired pn with Proteus and E.Coli with resultant septic shock but responded well to antibiotics and continued on Rocephin 2 gms daily IV for another 4 days. Pt now afebrile with VSS Plan: Current treatment continued as ongoing
[2025-06-06] MEDS: MAGNESIUM HYDROXIDE 30 ML ORAL SUSP ML GT (21:30)
[2025-06-07] VITALS (11 sets, daily range): BP systolic 97–117; BP diastolic 63–69; PULSE 68–97; RESP 20; TEMP 36.2–36.4; O2SAT 97–99; BMI 24.3
[2025-06-07] MEDS: MIDODRINE 10 MG TABLET GT ×3 (05:18→21:12)
[2025-06-07] MEDS: PROPRANOLOL 20 MG TABLET GT (05:19)
[2025-06-07] MEDS: FISH OIL 1200 MG GT (08:42)
[2025-06-07] MEDS: DEXLANSOPRAZOLE 30 MG GT (08:42)
[2025-06-07] MEDS: LOSARTAN 25 MG TABLET GT (08:42)
[2025-06-07] MEDS: DEX/HYPRO/GLY ARTIFICAL TEARS 225 DROP/15 ML BTL BOTH EYES ×2 (08:42→20:24)
[2025-06-07] MEDS: SENNOSIDES 8.6 MG TABLET GT ×2 (08:43→20:24)
[2025-06-07] MEDS: MULTIVITAMIN W MINERALS 1 EACH TABLET GT (08:43)
--- NOTE | 2025-06-07 11:57 | PC.SS ---
This SSD followed up with Marlene at [facility]. Marlene said she and resident RP Arlene Menesesseca did have a telephone conversation to go over Arlene's questions. Marlene said all questions were answered, Arlene would like to move forward with referral to [facility]. Marlene said she is currently searching for a facility closer to home where they will work on transitioning resident to hospice near family. This SSD informed charge nurse and air conditioning unit tester of family request. Arlene has requested this service as she spoke with a physician from inpatient side about resident being on comfort care or hospice. This SSD will assist RP and resident with DC plans to a facility closer to home. Charge nurse will speak with MD about order.
[2025-06-08] VITALS (10 sets, daily range): BP systolic 94–109; BP diastolic 61–71; PULSE 57–92; RESP 18–24; TEMP 36.1–37; O2SAT 97–99
[2025-06-08] MEDS: PROPRANOLOL 20 MG TABLET GT ×2 (05:12→13:30)
[2025-06-08] MEDS: MIDODRINE 10 MG TABLET GT ×3 (05:12→21:00)
[2025-06-08] MEDS: MULTIVITAMIN W MINERALS 1 EACH TABLET GT (09:07)
[2025-06-08] MEDS: SENNOSIDES 8.6 MG TABLET GT ×2 (09:07→20:51)
[2025-06-08] MEDS: DEX/HYPRO/GLY ARTIFICAL TEARS 225 DROP/15 ML BTL BOTH EYES ×2 (09:08→20:51)
[2025-06-08] MEDS: FISH OIL 1200 MG GT (09:08)
[2025-06-08] MEDS: DEXLANSOPRAZOLE 30 MG GT (09:08)
--- NOTE | 2025-06-08 14:28 | PC.SS ---
This SSD and MD called and spoke with resident RP Arlene Hinds regarding her request to have her father put on hospice for comfort care and be moved closer to home. MD spoke with Arlene and explained process of hospice confirmed she understood all practice of hospice, she said yes this SSD confirmed with her she did want to move forward with hospice referral and order, Arlene said 'yes this SSD and MD spoke with charge nurse to prepare order for hospice care closer to home per request of Arlene. This SSD will send patient referral to [facility] and will send order. executive sales manager made aware.
[2025-06-09] VITALS (12 sets, daily range): BP systolic 98–114; BP diastolic 59–80; PULSE 64–83; RESP 17–19; TEMP 36.1–36.8; O2SAT 94–98
[2025-06-09] MEDS: PROPRANOLOL 20 MG TABLET GT ×2 (05:21→13:45)
[2025-06-09] MEDS: MIDODRINE 10 MG TABLET GT ×3 (05:21→21:06)
[2025-06-09] MEDS: DEX/HYPRO/GLY ARTIFICAL TEARS 225 DROP/15 ML BTL BOTH EYES ×2 (08:27→21:06)
[2025-06-09] MEDS: FISH OIL 1200 MG GT (08:28)
[2025-06-09] MEDS: DEXLANSOPRAZOLE 30 MG GT (08:28)
[2025-06-09] MEDS: LOSARTAN 25 MG TABLET GT (08:28)
[2025-06-09] MEDS: SENNOSIDES 8.6 MG TABLET GT ×2 (08:29→21:06)
[2025-06-09] MEDS: MULTIVITAMIN W MINERALS 1 EACH TABLET GT (08:29)
[2025-06-10] VITALS (11 sets, daily range): BP systolic 96–113; BP diastolic 63–70; PULSE 57–81; RESP 18–20; TEMP 36.1–36.9; O2SAT 96–97
[2025-06-10] MEDS: PROPRANOLOL 20 MG TABLET GT ×2 (05:35→21:25)
[2025-06-10] MEDS: DEX/HYPRO/GLY ARTIFICAL TEARS 225 DROP/15 ML BTL BOTH EYES ×2 (08:21→21:24)
[2025-06-10] MEDS: DEXLANSOPRAZOLE 30 MG GT (08:22)
[2025-06-10] MEDS: FISH OIL 1200 MG GT (08:22)
[2025-06-10] MEDS: SENNOSIDES 8.6 MG TABLET GT ×2 (08:24→21:24)
[2025-06-10] MEDS: MULTIVITAMIN W MINERALS 1 EACH TABLET GT (08:24)
[2025-06-10] MEDS: MIDODRINE 10 MG TABLET GT ×2 (13:24→21:24)
--- NOTE | 2025-06-10 14:46 | PC.SS ---
Resident remains on blow by with trach in place and GT for medication and nutrition. Resident is unable to make needs known, pharmacy services representative will continue to make all medical decisions for resident. Resident will remain in current care as resident is not ready to DC to lower level of care, he will continue to have all subacute care needs met by staff.
--- NOTE | 2025-06-10 22:16 | ESPR_ITS ---
Progress Note - SubAcute DIAGNOSIS (1) Traumatic brain injury: Status: Chronic (2) Anoxic brain damage, not elsewhere classified: Status: Chronic (3) Tracheostomy status: Status: Chronic (4) Gastrostomy status: Status: Chronic (5) Chronic respiratory failure: Status: Chronic SUBJECTIVE Fever:: worsening (103 F.) GI:: none Shortness of Breath:: none GI:: no complaints Pain:: none OBJECTIVE Most recent vital signs: Last Vital Signs Temp 97.0 F 06/10/25 16:41 Pulse 76 06/10/25 21:25 Resp 18 06/10/25 16:41 BP 110/69 06/10/25 21:25 Pulse Ox 97 06/10/25 16:41 O2 Del Method Blow-by 06/10/25 16:41 O2 Flow Rate 6 06/10/25 16:41 FiO2 06/10/25 16:41 Neurological:: awake Speech:: none Answers questions:: sometimes (Sometimes opens eyes to command.) Respiratory:: lungs clear Cardiovascular: RRR Abdomen: soft and nontender Extremities:: deformities Decubitus:: none Tracheostomy:: to blow by Feeding per:: G tube Complaints:: none ASSESSMENT & PLAN Assessment: Stable status. No improvement in cognitive function. Pt was transferred to Acute care on 12-28-24 for fever and w/u revealed Enterococcus UTI and Pneumonia with Proteus and providencia and responded to antibiotics and was received back in [facility] on 01-01-25 on Levaquin and Augmentin for completion of course for a week. Diagnosis and treatment reviewed. Prognosis remains poor. No evident pain issues.Comfort objective being achieved.VSS. Family representatives kept updated. Some observation by family member about hiccups. will monitor and if they return then a trial with medicatios appropriately will be offered. No more hiccups reported to me by nursing staff. stable VSS. Tolerating tube feeding. No pain issues. 05-29-25 Pt developed high grade fever that did not respond to anti pyretic and cooling measures and work up initiated and pt transferred to ER for evaluatio withn 06-02-25 Pt received back from acute Hospital after treatment for Hospital aquired pn with Proteus and E.Coli with resultant septic shock but responded well to antibiotics and continued on Rocephin 2 gms daily IV for another 4 days. Pt now afebrile with VSS Family considetating Hospice Care and if possible transfer pt closer to home. Plan: Current treatment continued as ongoing
[2025-06-11] VITALS (12 sets, daily range): BP systolic 90–112; BP diastolic 56–74; PULSE 62–75; RESP 18; TEMP 36.1–36.6; O2SAT 96–97
[2025-06-11] MEDS: MIDODRINE 10 MG TABLET GT ×2 (05:38→21:25)
[2025-06-11] MEDS: PROPRANOLOL 20 MG TABLET GT ×2 (05:39→13:09)
[2025-06-11] MEDS: SENNOSIDES 8.6 MG TABLET GT ×2 (09:02→21:25)
[2025-06-11] MEDS: MULTIVITAMIN W MINERALS 1 EACH TABLET GT (09:02)
[2025-06-11] MEDS: FISH OIL 1200 MG GT (09:03)
[2025-06-11] MEDS: DEXLANSOPRAZOLE 30 MG GT (09:03)
[2025-06-11] MEDS: DEX/HYPRO/GLY ARTIFICAL TEARS 225 DROP/15 ML BTL BOTH EYES ×2 (09:03→21:25)
[2025-06-12] VITALS (12 sets, daily range): BP systolic 94–109; BP diastolic 63–71; PULSE 54–68; RESP 17–20; TEMP 36.2–36.6; O2SAT 95–100
[2025-06-12] MEDS: MIDODRINE 10 MG TABLET GT ×3 (05:27→21:21)
[2025-06-12] MEDS: PROPRANOLOL 20 MG TABLET GT ×3 (05:28→21:22)
[2025-06-12] MEDS: FISH OIL 1200 MG GT (08:53)
[2025-06-12] MEDS: DEX/HYPRO/GLY ARTIFICAL TEARS 225 DROP/15 ML BTL BOTH EYES ×2 (08:53→21:21)
[2025-06-12] MEDS: DEXLANSOPRAZOLE 30 MG GT (08:53)
[2025-06-12] MEDS: MULTIVITAMIN W MINERALS 1 EACH TABLET GT (08:54)
[2025-06-12] MEDS: SENNOSIDES 8.6 MG TABLET GT ×2 (08:55→21:21)
--- NOTE | 2025-06-12 13:09 | PD.SAPROG ---
Progress Note - SubAcute DIAGNOSIS (1) Traumatic brain injury: Status: Chronic (2) Anoxic brain damage, not elsewhere classified: Status: Chronic (3) Tracheostomy status: Status: Chronic (4) Gastrostomy status: Status: Chronic (5) Chronic respiratory failure: Status: Chronic SUBJECTIVE Fever:: worsening (103 F.) GI:: none Shortness of Breath:: none GI:: no complaints Pain:: none OBJECTIVE Most recent vital signs: Last Vital Signs Temp 97.2 F 06/12/25 12:00 Pulse 62 06/12/25 12:00 Resp 20 06/12/25 12:00 BP 94/63 06/12/25 12:00 Pulse Ox 95 06/12/25 06:00 O2 Del Method Blow-by 06/12/25 06:00 O2 Flow Rate 6 06/12/25 04:32 FiO2 28 06/12/25 04:32 Neurological:: awake Speech:: none Answers questions:: sometimes (Sometimes opens eyes to command.) Respiratory:: lungs clear Cardiovascular: RRR Abdomen: soft and nontender Extremities:: deformities Decubitus:: none Tracheostomy:: to blow by Feeding per:: G tube Complaints:: none ASSESSMENT & PLAN Assessment: Stable status. No improvement in cognitive function. Pt was transferred to Acute care on 12-28-24 for fever and w/u revealed Enterococcus UTI and Pneumonia with Proteus and providencia and responded to antibiotics and was received back in [facility] on 01-01-25 on Levaquin and Augmentin for completion of course for a week. Diagnosis and treatment reviewed. Prognosis remains poor. No evident pain issues.Comfort objective being achieved.VSS. Family representatives kept updated. Some observation by family member about hiccups. will monitor and if they return then a trial with medicatios appropriately will be offered. No more hiccups reported to me by nursing staff. stable VSS. Tolerating tube feeding. No pain issues. 05-29-25 Pt developed high grade fever that did not respond to anti pyretic and cooling measures and work up initiated and pt transferred to ER for evaluatio withn 06-02-25 Pt received back from acute Hospital after treatment for Hospital aquired pn with Proteus and E.Coli with resultant septic shock but responded well to antibiotics and continued on Rocephin 2 gms daily IV for another 4 days. Pt now afebrile with VSS Family considetating Hospice Care and if possible transfer pt closer to home. The needful is being done Plan: Current treatment continued as ongoing
[2025-06-13] VITALS (13 sets, daily range): BP systolic 97–121; BP diastolic 48–79; PULSE 52–76; RESP 16–20; TEMP 36.3–36.6; O2SAT 98–99
[2025-06-13] MEDS: MIDODRINE 10 MG TABLET GT ×2 (05:32→21:14)
[2025-06-13] MEDS: FISH OIL 1200 MG GT (08:57)
[2025-06-13] MEDS: DEX/HYPRO/GLY ARTIFICAL TEARS 225 DROP/15 ML BTL BOTH EYES ×2 (08:57→21:14)
[2025-06-13] MEDS: DEXLANSOPRAZOLE 30 MG GT (08:57)
[2025-06-13] MEDS: MULTIVITAMIN W MINERALS 1 EACH TABLET GT (08:59)
[2025-06-13] MEDS: SENNOSIDES 8.6 MG TABLET GT ×2 (08:59→21:14)
[2025-06-13] MEDS: PROPRANOLOL 20 MG TABLET GT ×2 (13:36→21:15)
[2025-06-14] VITALS (10 sets, daily range): BP systolic 95–118; BP diastolic 61–80; PULSE 53–79; RESP 16–18; TEMP 36.3–36.4; O2SAT 94–98
[2025-06-14] MEDS: MIDODRINE 10 MG TABLET GT (05:27)
[2025-06-14] MEDS: DEXLANSOPRAZOLE 30 MG GT (08:39)
[2025-06-14] MEDS: DEX/HYPRO/GLY ARTIFICAL TEARS 225 DROP/15 ML BTL BOTH EYES ×2 (08:39→21:04)
[2025-06-14] MEDS: MULTIVITAMIN W MINERALS 1 EACH TABLET GT (08:39)
[2025-06-14] MEDS: FISH OIL 1200 MG GT (08:39)
[2025-06-14] MEDS: LOSARTAN 25 MG TABLET GT (08:39)
[2025-06-14] MEDS: SENNOSIDES 8.6 MG TABLET GT ×2 (08:40→21:05)
[2025-06-14] MEDS: PROPRANOLOL 20 MG TABLET GT ×2 (13:48→21:06)
[2025-06-15] VITALS (12 sets, daily range): BP systolic 103–113; BP diastolic 56–74; PULSE 54–73; RESP 16–20; TEMP 35.9–36.9; O2SAT 94–98
[2025-06-15] MEDS: PROPRANOLOL 20 MG TABLET GT ×3 (05:29→21:48)
[2025-06-15] MEDS: MIDODRINE 10 MG TABLET GT ×3 (05:31→21:47)
[2025-06-15] MEDS: DEX/HYPRO/GLY ARTIFICAL TEARS 225 DROP/15 ML BTL BOTH EYES ×2 (09:15→21:49)
[2025-06-15] MEDS: LOSARTAN 25 MG TABLET GT (09:15)
[2025-06-15] MEDS: FISH OIL 1200 MG GT (09:15)
[2025-06-15] MEDS: SENNOSIDES 8.6 MG TABLET GT ×2 (09:15→21:49)
[2025-06-15] MEDS: MULTIVITAMIN W MINERALS 1 EACH TABLET GT (09:15)
[2025-06-15] MEDS: DEXLANSOPRAZOLE 30 MG GT (09:15)
[2025-06-16] VITALS (10 sets, daily range): BP systolic 100–150; BP diastolic 64–84; PULSE 55–80; RESP 18–20; TEMP 36.3–36.7; O2SAT 95–96
[2025-06-16] MEDS: PROPRANOLOL 20 MG TABLET GT ×3 (05:59→21:18)
[2025-06-16] MEDS: MULTIVITAMIN W MINERALS 1 EACH TABLET GT (08:57)
[2025-06-16] MEDS: FISH OIL 1200 MG GT (08:57)
[2025-06-16] MEDS: DEX/HYPRO/GLY ARTIFICAL TEARS 225 DROP/15 ML BTL BOTH EYES ×2 (08:57→21:17)
[2025-06-16] MEDS: LOSARTAN 25 MG TABLET GT (08:57)
[2025-06-16] MEDS: SENNOSIDES 8.6 MG TABLET GT ×2 (08:57→21:18)
[2025-06-16] MEDS: DEXLANSOPRAZOLE 30 MG GT (08:57)
[2025-06-16] MEDS: MIDODRINE 10 MG TABLET GT (13:35)
[2025-06-16] MEDS: MAGNESIUM HYDROXIDE 30 ML ORAL SUSP ML GT (21:18)
[2025-06-17] VITALS (12 sets, daily range): BP systolic 96–116; BP diastolic 54–76; PULSE 52–78; RESP 16–20; TEMP 36.2–36.8; O2SAT 96–99
[2025-06-17] MEDS: MIDODRINE 10 MG TABLET GT ×3 (05:14→21:15)
[2025-06-17] MEDS: DEX/HYPRO/GLY ARTIFICAL TEARS 225 DROP/15 ML BTL BOTH EYES ×2 (09:09→21:15)
[2025-06-17] MEDS: LOSARTAN 25 MG TABLET GT (09:10)
[2025-06-17] MEDS: DEXLANSOPRAZOLE 30 MG GT (09:10)
[2025-06-17] MEDS: SENNOSIDES 8.6 MG TABLET GT ×2 (09:10→21:15)
[2025-06-17] MEDS: MULTIVITAMIN W MINERALS 1 EACH TABLET GT (09:10)
[2025-06-17] MEDS: FISH OIL 1200 MG GT (09:10)
--- NOTE | 2025-06-17 09:13 | ESPR_ITS ---
Progress Note - SubAcute DIAGNOSIS (1) Traumatic brain injury: Status: Chronic (2) Anoxic brain damage, not elsewhere classified: Status: Chronic (3) Tracheostomy status: Status: Chronic (4) Gastrostomy status: Status: Chronic (5) Chronic respiratory failure: Status: Chronic SUBJECTIVE Fever:: worsening (103 F.) GI:: none Shortness of Breath:: none GI:: no complaints Pain:: none OBJECTIVE Most recent vital signs: Last Vital Signs Temp 97.1 F 06/17/25 06:00 Pulse 65 06/17/25 09:10 Resp 18 06/17/25 06:58 BP 115/72 06/17/25 09:10 Pulse Ox 98 06/17/25 06:58 O2 Del Method Blow-by 06/16/25 18:00 O2 Flow Rate 6 06/17/25 06:58 FiO2 28 06/17/25 06:58 Neurological:: awake Speech:: none Answers questions:: sometimes (Sometimes opens eyes to command.) Respiratory:: lungs clear Cardiovascular: RRR Abdomen: soft and nontender Extremities:: deformities Decubitus:: none Tracheostomy:: to blow by Feeding per:: G tube Complaints:: none ASSESSMENT & PLAN Assessment: Stable status. No improvement in cognitive function. Pt was transferred to Acute care on 12-28-24 for fever and w/u revealed Enterococcus UTI and Pneumonia with Proteus and providencia and responded to antibiotics and was received back in [facility] on 01-01-25 on Levaquin and Augmentin for completion of course for a week. Diagnosis and treatment reviewed. Prognosis remains poor. No evident pain issues.Comfort objective being achieved.VSS. Family representatives kept updated. Some observation by family member about hiccups. will monitor and if they return then a trial with medicatios appropriately will be offered. No more hiccups reported to me by nursing staff. stable VSS. Tolerating tube feeding. No pain issues. 05-29-25 Pt developed high grade fever that did not respond to anti pyretic and cooling measures and work up initiated and pt transferred to ER for evaluatio withn 06-02-25 Pt received back from acute Hospital after treatment for Hospital aquired pn with Proteus and E.Coli with resultant septic shock but responded well to antibiotics and continued on Rocephin 2 gms daily IV for another 4 days. Pt now afebrile with VSS Family considetating Hospice Care and if possible transfer pt closer to home. The needful is being done. VSS Plan: Current treatment continued as ongoing
[2025-06-17] MEDS: PROPRANOLOL 20 MG TABLET GT ×2 (14:21→21:16)
--- NOTE | 2025-06-17 14:38 | PC.SS ---
Resident remains on blow by with trach in place and GT for medication and nutrition. Resident is unable to make needs known, senior human resources representative will continue to make all medical decisions for resident. Resident will remain in current care as resident is not ready to DC to lower level of care, he will continue to have all subacute care needs met by staff. Family is trying to get him into [facility].
[2025-06-18] VITALS (12 sets, daily range): BP systolic 96–120; BP diastolic 62–78; PULSE 59–80; RESP 16–20; TEMP 36.3–36.4; O2SAT 95–98
[2025-06-18] MEDS: MIDODRINE 10 MG TABLET GT ×2 (05:16→13:09)
[2025-06-18] MEDS: DEX/HYPRO/GLY ARTIFICAL TEARS 225 DROP/15 ML BTL BOTH EYES ×2 (08:53→20:42)
[2025-06-18] MEDS: DEXLANSOPRAZOLE 30 MG GT (08:53)
[2025-06-18] MEDS: FISH OIL 1200 MG GT (08:54)
[2025-06-18] MEDS: SENNOSIDES 8.6 MG TABLET GT ×2 (08:55→20:42)
[2025-06-18] MEDS: MULTIVITAMIN W MINERALS 1 EACH TABLET GT (08:55)
[2025-06-18] MEDS: PROPRANOLOL 20 MG TABLET GT (21:22)
[2025-06-19] VITALS (13 sets, daily range): BP systolic 91–126; BP diastolic 53–75; PULSE 51–78; RESP 10–27; TEMP 36.2–36.4; O2SAT 97–99
[2025-06-19] MEDS: PROPRANOLOL 20 MG TABLET GT ×2 (05:15→21:08)
[2025-06-19] MEDS: SENNOSIDES 8.6 MG TABLET GT ×2 (08:11→20:34)
[2025-06-19] MEDS: MULTIVITAMIN W MINERALS 1 EACH TABLET GT (08:11)
[2025-06-19] MEDS: FISH OIL 1200 MG GT (08:12)
[2025-06-19] MEDS: DEX/HYPRO/GLY ARTIFICAL TEARS 225 DROP/15 ML BTL BOTH EYES ×2 (08:12→20:33)
[2025-06-19] MEDS: DEXLANSOPRAZOLE 30 MG GT (08:12)
[2025-06-19] MEDS: MIDODRINE 10 MG TABLET GT (13:19)
[2025-06-20] VITALS (12 sets, daily range): BP systolic 104–127; BP diastolic 69–76; PULSE 62–71; RESP 18–19; TEMP 36.6–36.8; O2SAT 93–97
[2025-06-20] MEDS: MIDODRINE 10 MG TABLET GT ×2 (05:25→13:35)
[2025-06-20] MEDS: PROPRANOLOL 20 MG TABLET GT ×3 (05:26→21:08)
[2025-06-20] MEDS: DEXLANSOPRAZOLE 30 MG GT (08:10)
[2025-06-20] MEDS: SENNOSIDES 8.6 MG TABLET GT ×2 (08:10→21:06)
[2025-06-20] MEDS: MULTIVITAMIN W MINERALS 1 EACH TABLET GT (08:10)
[2025-06-20] MEDS: DEX/HYPRO/GLY ARTIFICAL TEARS 225 DROP/15 ML BTL BOTH EYES ×2 (08:10→21:09)
[2025-06-20] MEDS: FISH OIL 1200 MG GT (08:10)
[2025-06-21] VITALS (11 sets, daily range): BP systolic 104–110; BP diastolic 64–77; PULSE 55–72; RESP 18–20; TEMP 36.7; O2SAT 92–97
[2025-06-21] MEDS: MIDODRINE 10 MG TABLET GT ×3 (05:13→21:26)
[2025-06-21] MEDS: PROPRANOLOL 20 MG TABLET GT ×3 (05:15→21:27)
[2025-06-21] MEDS: DEXLANSOPRAZOLE 30 MG GT (08:14)
[2025-06-21] MEDS: DEX/HYPRO/GLY ARTIFICAL TEARS 225 DROP/15 ML BTL BOTH EYES ×2 (08:14→21:26)
[2025-06-21] MEDS: FISH OIL 1200 MG GT (08:14)
[2025-06-21] MEDS: MULTIVITAMIN W MINERALS 1 EACH TABLET GT (08:15)
[2025-06-21] MEDS: LOSARTAN 25 MG TABLET GT (08:15)
[2025-06-21] MEDS: SENNOSIDES 8.6 MG TABLET GT ×2 (08:15→21:26)
[2025-06-22] VITALS (8 sets, daily range): BP systolic 95–142; BP diastolic 58–78; PULSE 55–78; RESP 18–20; TEMP 36.4; O2SAT 99
[2025-06-22] MEDS: PROPRANOLOL 20 MG TABLET GT ×2 (05:15→13:34)
[2025-06-22] MEDS: DEX/HYPRO/GLY ARTIFICAL TEARS 225 DROP/15 ML BTL BOTH EYES ×2 (08:43→21:15)
[2025-06-22] MEDS: FISH OIL 1200 MG GT (08:44)
[2025-06-22] MEDS: DEXLANSOPRAZOLE 30 MG GT (08:44)
[2025-06-22] MEDS: SENNOSIDES 8.6 MG TABLET GT ×2 (08:45→21:18)
[2025-06-22] MEDS: MULTIVITAMIN W MINERALS 1 EACH TABLET GT (08:45)
[2025-06-22] MEDS: MIDODRINE 10 MG TABLET GT ×2 (13:34→21:15)
[2025-06-23] VITALS (11 sets, daily range): BP systolic 102–119; BP diastolic 60–73; PULSE 51–70; RESP 18–20; TEMP 36.1–36.8; O2SAT 92–95
[2025-06-23] MEDS: MIDODRINE 10 MG TABLET GT ×2 (05:54→13:26)
[2025-06-23] MEDS: PROPRANOLOL 20 MG TABLET GT ×2 (05:54→21:07)
[2025-06-23] MEDS: DEX/HYPRO/GLY ARTIFICAL TEARS 225 DROP/15 ML BTL BOTH EYES ×2 (08:55→21:04)
[2025-06-23] MEDS: DEXLANSOPRAZOLE 30 MG GT (08:55)
[2025-06-23] MEDS: FISH OIL 1200 MG GT (08:55)
[2025-06-23] MEDS: SENNOSIDES 8.6 MG TABLET GT ×2 (08:57→21:04)
[2025-06-23] MEDS: MULTIVITAMIN W MINERALS 1 EACH TABLET GT (08:57)
[2025-06-24] VITALS (8 sets, daily range): BP systolic 99–132; BP diastolic 59–81; PULSE 57–69; RESP 18–96; TEMP 36.1–36.6; O2SAT 96–97
[2025-06-24] MEDS: PROPRANOLOL 20 MG TABLET GT ×2 (05:24→13:31)
[2025-06-24] MEDS: FISH OIL 1200 MG GT (08:31)
[2025-06-24] MEDS: DEX/HYPRO/GLY ARTIFICAL TEARS 225 DROP/15 ML BTL BOTH EYES ×2 (08:31→21:29)
[2025-06-24] MEDS: LOSARTAN 25 MG TABLET GT (08:31)
[2025-06-24] MEDS: SENNOSIDES 8.6 MG TABLET GT ×2 (08:31→21:30)
[2025-06-24] MEDS: DEXLANSOPRAZOLE 30 MG GT (08:31)
[2025-06-24] MEDS: MULTIVITAMIN W MINERALS 1 EACH TABLET GT (08:31)
--- NOTE | 2025-06-24 11:30 | PC.SS ---
Resident remains on blow by with trach in place and GT for medication and nutrition. Resident is unable to make needs known, assistance representative will continue to make all medical decisions for resident. Resident will remain in current care as resident is not ready to DC to lower level of care, he will continue to have all subacute care needs met by staff. Family is trying to get him into [facility], awaiting insurance authorization.
[2025-06-24] MEDS: MIDODRINE 10 MG TABLET GT ×2 (13:31→21:30)
--- NOTE | 2025-06-24 16:16 | PC.NURSE ---
Discussed with Mov
--- NOTE | 2025-06-24 16:19 | PC.NURSE ---
Discussed with [employer] patient transportation, third alliance party vendor to authorize and schedule transportation for Mr. Bruno, reference #[id number]. Was scheduled for pick-up at 10:00am, however there is a three hour window for pick-up. Marlene liaison for [facility] has been working with Mr. Bruno's daughter Arlene to transport him to [place] and organizing all his DME needs to be available on his arrival. Respiratory Department (Jamal) has been informed that a therapist maybe needed for the transport depending on the EMS request. [facility] was given the charge nurses phone number for further updates.
--- NOTE | 2025-06-24 17:15 | PC.NURSE ---
In speaking with Ms. Lucio Hinds, she is not prepared to receive her father tomorrow, Saturday would be better. Transportation was canceled for 06/25/2025, [facility] advised to cancel and call tomorrow evening or Saturday as they can schedule for transport on the same day.
--- NOTE | 2025-06-24 19:30 | PC.NURSE ---
Report received from clinical billing services manager this afternoon that resident will be discharged to home in [place] under [facility] . Resident on BB at 35% at 10 L. As per clinical billing services manager, transportation only takes patients on O2 at 6-7L. Dr Ham made aware and placed resident on BB 28% at 6 L tolerated well. On continuos pulse ox satting 96-96%, no s/s of respiratory distress noted. No s/s of pain or discomfort.
[2025-06-25] VITALS (11 sets, daily range): BP systolic 98–109; BP diastolic 61–71; PULSE 51–72; RESP 18–97; TEMP 36.2–36.4; O2SAT 86–97
[2025-06-25] MEDS: MIDODRINE 10 MG TABLET GT ×3 (05:06→21:35)
[2025-06-25] MEDS: PROPRANOLOL 20 MG TABLET GT ×2 (05:06→21:35)
[2025-06-25] MEDS: DEX/HYPRO/GLY ARTIFICAL TEARS 225 DROP/15 ML BTL BOTH EYES ×2 (08:32→21:34)
[2025-06-25] MEDS: DEXLANSOPRAZOLE 30 MG GT (08:32)
[2025-06-25] MEDS: FISH OIL 1200 MG GT (08:33)
[2025-06-25] MEDS: MULTIVITAMIN W MINERALS 1 EACH TABLET GT (08:34)
[2025-06-25] MEDS: SENNOSIDES 8.6 MG TABLET GT ×2 (08:34→21:35)
[2025-06-25] MEDS: MAG HYDROX/ALUMINUM HYD/SIMETH 355 ML BTL 30 ML PO (21:36)
--- NOTE | 2025-06-25 22:10 | PD.SAPROG ---
Progress Note - SubAcute DIAGNOSIS (1) Traumatic brain injury: Status: Chronic (2) Anoxic brain damage, not elsewhere classified: Status: Chronic (3) Tracheostomy status: Status: Chronic (4) Gastrostomy status: Status: Chronic (5) Chronic respiratory failure: Status: Chronic SUBJECTIVE Fever:: worsening (103 F.) GI:: none Shortness of Breath:: none GI:: no complaints Pain:: none OBJECTIVE Most recent vital signs: Last Vital Signs Temp 97.5 F 06/25/25 17:30 Pulse 69 06/25/25 21:35 Resp 20 06/25/25 17:30 BP 108/71 06/25/25 21:35 Pulse Ox 95 06/25/25 17:30 O2 Del Method Blow-by 06/25/25 06:00 O2 Flow Rate 6 06/25/25 16:58 FiO2 28 06/25/25 16:58 Neurological:: awake Speech:: none Answers questions:: sometimes (Sometimes opens eyes to command.) Respiratory:: lungs clear Cardiovascular: RRR Abdomen: soft and nontender Extremities:: deformities Decubitus:: none Tracheostomy:: to blow by Feeding per:: G tube Complaints:: none ASSESSMENT & PLAN Assessment: Stable status. No improvement in cognitive function. Pt was transferred to Acute care on 12-28-24 for fever and w/u revealed Enterococcus UTI and Pneumonia with Proteus and providencia and responded to antibiotics and was received back in [facility] on 01-01-25 on Levaquin and Augmentin for completion of course for a week. Diagnosis and treatment reviewed. Prognosis remains poor. No evident pain issues.Comfort objective being achieved.VSS. Family representatives kept updated. Some observation by family member about hiccups. will monitor and if they return then a trial with medicatios appropriately will be offered. No more hiccups reported to me by nursing staff. stable VSS. Tolerating tube feeding. No pain issues. 05-29-25 Pt developed high grade fever that did not respond to anti pyretic and cooling measures and work up initiated and pt transferred to ER for evaluatio withn 06-02-25 Pt received back from acute Hospital after treatment for Hospital aquired pn with Proteus and E.Coli with resultant septic shock but responded well to antibiotics and continued on Rocephin 2 gms daily IV for another 4 days. Pt now afebrile with VSS Family considetating Hospice Care and if possible transfer pt closer to home. The needful is being done. VSS Plan: Current treatment continued as ongoing
[2025-06-26] VITALS (10 sets, daily range): BP systolic 97–131; BP diastolic 65–76; PULSE 54–79; RESP 18–21; TEMP 36.3–36.8; O2SAT 95–97
[2025-06-26] MEDS: PROPRANOLOL 20 MG TABLET GT ×3 (05:26→21:21)
[2025-06-26] MEDS: MULTIVITAMIN W MINERALS 1 EACH TABLET GT (08:44)
[2025-06-26] MEDS: FISH OIL 1200 MG GT (08:44)
[2025-06-26] MEDS: DEX/HYPRO/GLY ARTIFICAL TEARS 225 DROP/15 ML BTL BOTH EYES ×2 (08:44→20:28)
[2025-06-26] MEDS: DEXLANSOPRAZOLE 30 MG GT (08:44)
[2025-06-26] MEDS: SENNOSIDES 8.6 MG TABLET GT ×2 (08:45→20:27)
[2025-06-26] MEDS: MIDODRINE 10 MG TABLET GT (13:35)
[2025-06-27] VITALS (11 sets, daily range): BP systolic 99–145; BP diastolic 63–91; PULSE 53–80; RESP 18–20; TEMP 36.2–37.1; O2SAT 95–98
[2025-06-27] MEDS: MIDODRINE 10 MG TABLET GT ×2 (05:16→21:06)
[2025-06-27] MEDS: PROPRANOLOL 20 MG TABLET GT ×2 (05:17→21:07)
[2025-06-27] MEDS: DEX/HYPRO/GLY ARTIFICAL TEARS 225 DROP/15 ML BTL BOTH EYES ×2 (08:51→21:07)
[2025-06-27] MEDS: DEXLANSOPRAZOLE 30 MG GT (08:52)
[2025-06-27] MEDS: FISH OIL 1200 MG GT (08:53)
[2025-06-27] MEDS: LOSARTAN 25 MG TABLET GT (08:53)
[2025-06-27] MEDS: MULTIVITAMIN W MINERALS 1 EACH TABLET GT (08:53)
[2025-06-27] MEDS: SENNOSIDES 8.6 MG TABLET GT ×2 (08:54→21:07)
[2025-06-28] VITALS (11 sets, daily range): BP systolic 99–110; BP diastolic 64–70; PULSE 54–69; RESP 18–20; TEMP 36.1–36.3; O2SAT 95–98
[2025-06-28] MEDS: PROPRANOLOL 20 MG TABLET GT ×2 (05:25→13:25)
[2025-06-28] MEDS: MIDODRINE 10 MG TABLET GT ×3 (05:25→21:02)
[2025-06-28] MEDS: MULTIVITAMIN W MINERALS 1 EACH TABLET GT (08:30)
[2025-06-28] MEDS: SENNOSIDES 8.6 MG TABLET GT ×2 (08:30→21:03)
[2025-06-28] MEDS: DEX/HYPRO/GLY ARTIFICAL TEARS 225 DROP/15 ML BTL BOTH EYES ×2 (08:31→21:03)
[2025-06-28] MEDS: DEXLANSOPRAZOLE 30 MG GT (08:31)
[2025-06-28] MEDS: FISH OIL 1200 MG GT (08:31)
[2025-06-29] VITALS (10 sets, daily range): BP systolic 98–116; BP diastolic 62–73; PULSE 54–76; RESP 18–19; TEMP 36.2–36.9; O2SAT 92–924
[2025-06-29] MEDS: MIDODRINE 10 MG TABLET GT ×3 (05:26→21:00)
[2025-06-29] MEDS: DEXLANSOPRAZOLE 30 MG GT (08:57)
[2025-06-29] MEDS: DEX/HYPRO/GLY ARTIFICAL TEARS 225 DROP/15 ML BTL BOTH EYES ×2 (08:57→20:56)
[2025-06-29] MEDS: MULTIVITAMIN W MINERALS 1 EACH TABLET GT (08:57)
[2025-06-29] MEDS: FISH OIL 1200 MG GT (08:57)
[2025-06-29] MEDS: SENNOSIDES 8.6 MG TABLET GT ×2 (08:57→20:56)
[2025-06-29] MEDS: PROPRANOLOL 20 MG TABLET GT ×2 (13:50→21:00)
--- NOTE | 2025-06-29 22:22 | ESPR_ITS ---
Progress Note - SubAcute DIAGNOSIS (1) Traumatic brain injury: Status: Chronic (2) Anoxic brain damage, not elsewhere classified: Status: Chronic (3) Tracheostomy status: Status: Chronic (4) Gastrostomy status: Status: Chronic (5) Chronic respiratory failure: Status: Chronic SUBJECTIVE Fever:: worsening (103 F.) GI:: none Shortness of Breath:: none GI:: no complaints Pain:: none OBJECTIVE Most recent vital signs: Last Vital Signs Temp 97.6 F 06/29/25 17:41 Pulse 61 06/29/25 21:00 Resp 19 06/29/25 17:41 BP 100/67 06/29/25 21:00 Pulse Ox 96 06/29/25 17:41 O2 Del Method Blow-by 06/29/25 17:41 O2 Flow Rate 10 06/29/25 06:24 FiO2 35 06/29/25 06:24 Neurological:: awake Speech:: none Answers questions:: sometimes (Sometimes opens eyes to command.) Respiratory:: lungs clear Cardiovascular: RRR Abdomen: soft and nontender Extremities:: deformities Decubitus:: none Tracheostomy:: to blow by Feeding per:: G tube Complaints:: none ASSESSMENT & PLAN Assessment: Stable status. No improvement in cognitive function. Pt was transferred to Acute care on 12-28-24 for fever and w/u revealed Enterococcus UTI and Pneumonia with Proteus and providencia and responded to antibiotics and was received back in [facility] on 01-01-25 on Levaquin and Augmentin for completion of course for a week. Diagnosis and treatment reviewed. Prognosis remains poor. No evident pain issues.Comfort objective being achieved.VSS. Family representatives kept updated. Some observation by family member about hiccups. will monitor and if they return then a trial with medicatios appropriately will be offered. No more hiccups reported to me by nursing staff. stable VSS. Tolerating tube feeding. No pain issues. 05-29-25 Pt developed high grade fever that did not respond to anti pyretic and cooling measures and work up initiated and pt transferred to ER for evaluatio withn 06-02-25 Pt received back from acute Hospital after treatment for Hospital aquired pn with Proteus and E.Coli with resultant septic shock but responded well to antibiotics and continued on Rocephin 2 gms daily IV for another 4 days. Pt now afebrile with VSS Family considetating Hospice Care and if possible transfer pt closer to home. The needful is being done. VSS Plan: Current treatment continued as ongoing
[2025-06-30] VITALS (12 sets, daily range): BP systolic 90–120; BP diastolic 58–74; PULSE 50–65; RESP 18–19; TEMP 36.2–36.7; O2SAT 94–98
[2025-06-30] MEDS: PROPRANOLOL 20 MG TABLET GT ×2 (05:12→21:05)
[2025-06-30] MEDS: DEX/HYPRO/GLY ARTIFICAL TEARS 225 DROP/15 ML BTL BOTH EYES ×2 (08:28→21:05)
[2025-06-30] MEDS: DEXLANSOPRAZOLE 30 MG GT (08:28)
[2025-06-30] MEDS: MULTIVITAMIN W MINERALS 1 EACH TABLET GT (08:29)
[2025-06-30] MEDS: FISH OIL 1200 MG GT (08:29)
[2025-06-30] MEDS: SENNOSIDES 8.6 MG TABLET GT ×2 (08:30→21:06)
[2025-06-30] MEDS: MIDODRINE 10 MG TABLET GT (13:26)
[2025-07-01] VITALS (11 sets, daily range): BP systolic 96–123; BP diastolic 65–78; PULSE 52–64; RESP 18–21; TEMP 36.1–36.6; O2SAT 96–98
[2025-07-01] MEDS: FISH OIL 1200 MG GT (08:34)
[2025-07-01] MEDS: DEXLANSOPRAZOLE 30 MG GT (08:34)
[2025-07-01] MEDS: DEX/HYPRO/GLY ARTIFICAL TEARS 225 DROP/15 ML BTL BOTH EYES ×2 (08:34→21:00)
[2025-07-01] MEDS: SENNOSIDES 8.6 MG TABLET GT ×2 (08:35→21:00)
[2025-07-01] MEDS: MULTIVITAMIN W MINERALS 1 EACH TABLET GT (08:35)
[2025-07-01] MEDS: PROPRANOLOL 20 MG TABLET GT (14:11)
[2025-07-01] MEDS: MIDODRINE 10 MG TABLET GT ×2 (14:11→20:59)
[2025-07-01] MEDS: MAGNESIUM HYDROXIDE 30 ML ORAL SUSP ML GT (17:38)
[2025-07-01] MEDS: BISACODYL 10 MG SUPP.RECT PR (21:00)
[2025-07-02] VITALS (15 sets, daily range): BP systolic 98–112; BP diastolic 59–77; PULSE 51–67; RESP 17–19; TEMP 36.1–36.3; O2SAT 90–99
[2025-07-02] MEDS: MIDODRINE 10 MG TABLET GT ×3 (05:21→21:08)
[2025-07-02] MEDS: PROPRANOLOL 20 MG TABLET GT (05:22)
[2025-07-02] MEDS: DEX/HYPRO/GLY ARTIFICAL TEARS 225 DROP/15 ML BTL BOTH EYES ×2 (08:21→20:41)
[2025-07-02] MEDS: DEXLANSOPRAZOLE 30 MG GT (08:23)
[2025-07-02] MEDS: LOSARTAN 25 MG TABLET GT (08:24)
[2025-07-02] MEDS: MULTIVITAMIN W MINERALS 1 EACH TABLET GT (08:24)
[2025-07-02] MEDS: FISH OIL 1200 MG GT (08:24)
[2025-07-02] MEDS: SENNOSIDES 8.6 MG TABLET GT ×2 (08:25→20:41)
--- NOTE | 2025-07-02 16:55 | PC.NURSE ---
In speaking with Ms. Arlene Hinds, she continues to prepare for her father arrival at her home in [place] on July 06, 2025.
[2025-07-03] VITALS (12 sets, daily range): BP systolic 98–127; BP diastolic 67–76; PULSE 55–77; RESP 17–20; TEMP 36.4–36.8; O2SAT 95–98
[2025-07-03] MEDS: MIDODRINE 10 MG TABLET GT ×2 (05:17→14:32)
[2025-07-03] MEDS: DEX/HYPRO/GLY ARTIFICAL TEARS 225 DROP/15 ML BTL BOTH EYES ×2 (09:07→20:35)
[2025-07-03] MEDS: FISH OIL 1200 MG GT (09:07)
[2025-07-03] MEDS: MULTIVITAMIN W MINERALS 1 EACH TABLET GT (09:07)
[2025-07-03] MEDS: DEXLANSOPRAZOLE 30 MG GT (09:07)
[2025-07-03] MEDS: SENNOSIDES 8.6 MG TABLET GT ×2 (09:08→20:34)
--- NOTE | 2025-07-03 15:51 | PC.SS ---
Resident remains on blow by with trach in place and GT for medication and nutrition. Resident is unable to make needs known, software sales representative will continue to make all medical decisions for resident. Resident will remain in current care as resident is not ready to DC to lower level of care, he will continue to have all subacute care needs met by staff. [facility] attempt to transfer has been discontinued.
--- NOTE | 2025-07-03 16:35 | ESPR_ITS ---
Progress Note - SubAcute DIAGNOSIS (1) Traumatic brain injury: Status: Chronic (2) Anoxic brain damage, not elsewhere classified: Status: Chronic (3) Tracheostomy status: Status: Chronic (4) Gastrostomy status: Status: Chronic (5) Chronic respiratory failure: Status: Chronic SUBJECTIVE Fever:: worsening (103 F.) GI:: none Shortness of Breath:: none GI:: no complaints Pain:: none OBJECTIVE Most recent vital signs: Last Vital Signs Temp 98.1 F 07/03/25 11:38 Pulse 71 07/03/25 14:33 Resp 17 07/03/25 11:38 BP 98/69 07/03/25 14:33 Pulse Ox 98 07/03/25 06:41 O2 Del Method Blow-by 07/02/25 16:40 O2 Flow Rate 6 07/03/25 06:41 FiO2 28 07/03/25 06:41 Neurological:: awake Speech:: none Answers questions:: sometimes (Sometimes opens eyes to command.) Respiratory:: lungs clear Cardiovascular: RRR Abdomen: soft and nontender Extremities:: deformities Decubitus:: none Tracheostomy:: to blow by Feeding per:: G tube Complaints:: none ASSESSMENT & PLAN Assessment: Stable status. No improvement in cognitive function. Pt was transferred to Acute care on 12-28-24 for fever and w/u revealed Enterococcus UTI and Pneumonia with Proteus and providencia and responded to antibiotics and was received back in [facility] on 01-01-25 on Levaquin and Augmentin for completion of course for a week. Diagnosis and treatment reviewed. Prognosis remains poor. No evident pain issues.Comfort objective being achieved.VSS. Family representatives kept updated. Some observation by family member about hiccups. will monitor and if they return then a trial with medicatios appropriately will be offered. No more hiccups reported to me by nursing staff. stable VSS. Tolerating tube feeding. No pain issues. 05-29-25 Pt developed high grade fever that did not respond to anti pyretic and cooling measures and work up initiated and pt transferred to ER for evaluatio withn 06-02-25 Pt received back from acute Hospital after treatment for Hospital aquired pn with Proteus and E.Coli with resultant septic shock but responded well to antibiotics and continued on Rocephin 2 gms daily IV for another 4 days. Pt now afebrile with VSS Family considetating Hospice Care and if possible transfer pt closer to home. The needful is being done. VSS Plan: Current treatment continued as ongoing
[2025-07-03] MEDS: PROPRANOLOL 20 MG TABLET GT (21:11)
[2025-07-04] VITALS (13 sets, daily range): BP systolic 98–136; BP diastolic 65–81; PULSE 58–75; RESP 18–24; TEMP 36.4–36.7; O2SAT 91–98
[2025-07-04] MEDS: PROPRANOLOL 20 MG TABLET GT (05:15)
[2025-07-04] MEDS: FISH OIL 1200 MG GT (09:01)
[2025-07-04] MEDS: DEX/HYPRO/GLY ARTIFICAL TEARS 225 DROP/15 ML BTL BOTH EYES ×2 (09:01→20:40)
[2025-07-04] MEDS: DEXLANSOPRAZOLE 30 MG GT (09:01)
[2025-07-04] MEDS: MULTIVITAMIN W MINERALS 1 EACH TABLET GT (09:02)
[2025-07-04] MEDS: LOSARTAN 25 MG TABLET GT (09:02)
[2025-07-04] MEDS: SENNOSIDES 8.6 MG TABLET GT ×2 (09:02→20:40)
[2025-07-04] MEDS: MIDODRINE 10 MG TABLET GT ×2 (14:15→21:12)
[2025-07-05] VITALS (11 sets, daily range): BP systolic 97–115; BP diastolic 60–76; PULSE 63–85; RESP 16–20; TEMP 36.6–36.9; O2SAT 95–99
[2025-07-05] MEDS: MIDODRINE 10 MG TABLET GT ×3 (05:18→20:47)
[2025-07-05] MEDS: LOSARTAN 25 MG TABLET GT (08:23)
[2025-07-05] MEDS: FISH OIL 1200 MG GT (08:23)
[2025-07-05] MEDS: MULTIVITAMIN W MINERALS 1 EACH TABLET GT (08:23)
[2025-07-05] MEDS: SENNOSIDES 8.6 MG TABLET GT ×2 (08:23→20:47)
[2025-07-05] MEDS: DEXLANSOPRAZOLE 30 MG GT (08:24)
[2025-07-05] MEDS: DEX/HYPRO/GLY ARTIFICAL TEARS 225 DROP/15 ML BTL BOTH EYES ×2 (08:24→20:47)
--- NOTE | 2025-07-05 17:21 | PC.NURSE ---
Spoke with and he states he will come tomorrow at 0730 am to sign the PCS form for ambulance transportation
--- NOTE | 2025-07-05 17:31 | PC.NURSE ---
Spoke with Cammy . Reference #[id number]. Scheduled pickup 07/06/2025 at 0800 for transportation to [address] [place] [address] [address], [facility] [id number]. Jammie for [facility] is aware of details. Family is also rabago and in agreement with plan to transfer Mr. Monreal to their private home in [place]. Per Cammy, they will keep unit updated on transportation updates. Staff made aware of these details.
[2025-07-05] MEDS: CARBAMIDE PEROXIDE OTIC SOL 15 ML BTL 5 DROP BOTH EARS (20:47)
[2025-07-06] VITALS: BP 105/72; PULSE 60; RESP 18; TEMP 36.7
[2025-07-06 05:20] VITALS: BP 105/68; PULSE 63
[2025-07-06] MEDS: PROPRANOLOL 20 MG TABLET GT (05:20)
[2025-07-06] MEDS: MIDODRINE 10 MG TABLET GT (05:20)
[2025-07-06 06:00] VITALS: BP 105/68; PULSE 63; RESP 18; TEMP 36.9; O2SAT 96
[2025-07-06 06:16] VITALS: PULSE 53; RESP 18; O2SAT 97
[2025-07-06] MEDS: CARBAMIDE PEROXIDE OTIC SOL 15 ML BTL 5 DROP BOTH EARS (08:05)
[2025-07-06] MEDS: FISH OIL 1200 MG GT (08:06)
[2025-07-06] MEDS: DEXLANSOPRAZOLE 30 MG GT (08:06)
[2025-07-06] MEDS: DEX/HYPRO/GLY ARTIFICAL TEARS 225 DROP/15 ML BTL BOTH EYES (08:06)
[2025-07-06 08:07] VITALS: BP 107/67; PULSE 60
[2025-07-06] MEDS: MULTIVITAMIN W MINERALS 1 EACH TABLET GT (08:07)
[2025-07-06] MEDS: SENNOSIDES 8.6 MG TABLET GT (08:07)
[2025-07-06 11:44] VITALS: BP 105/65; PULSE 63; RESP 22; TEMP 36.4
--- NOTE | 2025-07-06 13:08 | PC.NURSE ---
Addendum entered and electronically signed by Vickie Wheeler RN 07/06/25 13:16: Resident was discharged with lists of active medicines orders Original Note: Resident discharged to home under [facility] via [facility] at 13:02 in stable condition with belongings . V/S as follows: 97.5, 63, 22, 105/65. Respiration even and unlabored. No s/s of pain or discomfort noted.
== END | disposition home or self-care (01) | DRG 59 ==
PROVIDERS: Admitting Provider Specialist; PCP Specialist; Visit Provider Specialist
DX: G93.1 Anoxic brain damage, not elsewhere classified (principal); Z93.0 Tracheostomy status; Z93.1 Gastrostomy status; J96.10 Chronic respiratory failure, unspecified whether with hypoxia or hypercapnia; J18.9 Pneumonia, unspecified organism; Z74.01 Bed confinement status; M24.59 Contracture, other specified joint
CPT/HCPCS: 36415; 71045; 74018; 80053; 81001; 84145; 85025; 87040; 87070; 87077; 87086; 87186; 87205; 87502; 87811; 89220; 94640; 94762